=== PATIENT | female | born 1990 | race African-American/Black ===

== ENCOUNTER 2022-09-19 08:34 | Emergency (ER) | payer BC, MEDICAID, SELFPAY ==
[2022-09-19 08:41] VITALS: BP 101/65; PULSE 80; RESP 12; TEMP 36.4; O2SAT 98; BMI 32.1
--- NOTE | 2022-09-19 09:18 | ED.GENADULT ---
HPI - General Adult General Chief complaint: General Medical Stated complaint: CMT flare up Time Seen by Provider: 09/19/22 08:54 Source: patient Mode of arrival: ambulatory Limitations: no limitations History of Present Illness HPI narrative: 32 yo female with hx of CMT dx 6 years ago was being treated at [facility] but just moved to [place] she plans on going to [place] for her care now. She notes she is having diffuse body pain. She normally takes gabapentin daily, antidepressants, anxiolytics. She was just admitted to [facility] and dx with UTI 08/31 started on macrobid which according to up to date is on the list to worsen CMT flair. She completed a weeks course. She could not figure out why she went into another flare up x 2 after she left the hospital. She is here asking for pain medications. MD complaint: CMT pain Onset (ago): week(s) (on and off for the past month) Location: left, right, upper extremity and lower extremity Severity: severe Quality: aching, dull and constant Pain Consistency: constant Relieving factors: none Exacerbating factors: none Associated symptoms: denies other symptoms Treatments prior to arrival: other (prescription medications) Related Data Previous Rx's Medication Instructions Recorded cyclobenzaprine 10 mg tablet 10 mg PO TID PRN muscle spasm #20 09/19/22 tabs morphine 15 mg immediate release 15 mg PO TID PRN pain #10 tabs 09/19/22 tablet Allergies Allergy/AdvReac Type Severity Reaction Status Date / Time Unable to Assess Allergy Verified 09/19/22 09:14 Review of Systems Review of Systems: Constitutional : No Fever, No Chills ENT/Mouth : No Ear Pain, No Hoarseness, No sore throat Eyes: No Eye Pain, No Swelling, No Redness, No Foreign Body Cardiovascular : No Chest Pain, No SOB Respiratory : No Cough, No Dyspnea Gastrointestinal : No Nausea, No Vomiting, No Diarrhea, No abdominal Pain Genitourinary : No Dysuria, No Hematuria Musculoskeletal : positive joint pain, pos Myalgias, No Joint Swelling Skin : No Skin lacerations, No rash Neuro : pos Weakness, No Numbness, No Loss of Consciousness, No Dizziness, No Headache Psych : No Anxiety/Panic, No Depression Heme/Lymph: no easy bruising, no Lymphadenopathy Endocrine : No Polyuria, No Polydipsia All other systems reviewed and are negative [facility] Past Medical History Attestation statement: The following information was validated with the patient. Medical History Anxiety Charcot Leanna Tooth muscular atrophy Depression Social History Social History (Updated 09/19/22 @ 09:30 by Cecilia Murcia DO) Patient Tobacco Use Status: Never used Tobacco Advance Directives: No Advance Directives Information Provided: No Physical Exam ED Vital Signs: Vital Signs - 24 hr 09/19/22 08:41 Temperature 97.6 F Pulse Rate 80 Respiratory Rate 12 Blood Pressure 101/65 Pulse Oximetry 98 Oxygen Delivery Method Room Air BMI result Body Mass Index 32.1 Appearance: Alert. Oriented X3. No acute distress. Eyes: Pupils equal, round and reactive to light. ENT: Pharynx normal. Neck: Normal inspection. Neck supple. CVS: Normal heart rate and rhythm. Pulses normal. Respiratory: No respiratory distress. Breath sounds normal. Abdomen: Soft and non-tender. Skin: Skin warm and dry. Normal skin color. Normal skin turgor. Extremities: No lower extremity edema. Neuro: Oriented X 3. No motor deficit. No sensory deficit. Course Course Course Narrative: will try one dose of IM medications then DC home with oral feels much better stable for DC Medical Decision Making MDM Narrative Medical decision making narrative: 32 yo female with hx of CMT has plans to transfer care from [facility] to [facility] unsure which one - at this time c/o pain exacerbation. She was started on macrobid for UTI which likely triggered a flair. She is moving all extremities. Will obtain labs and UA. I ordered PO pain medications. 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 Lab Data Result diagrams: 09/19/22 09:43 09/19/22 09:43 Labs: Lab Results 09/19/22 09/19/22 09/19/22 Range/Units 09:43 09:43 09:43 WBC 5.5 (4.8-10.8) X10*3/uL RBC 4.10 L (4.20-5.50) X10*6/uL Hgb 12.4 (12.0-16.0) g/dl Hct 37.1 (37.0-47.0) % MCV 90.5 (80.0-98.0) fL MCH 30.2 (27.0-33.0) pg MCHC 33.4 (31.0-35.0) g/dl RDW 12.6 (11.0-16.0) % Plt Count 359 (160-400) X10*3/uL MPV 9.1 L (9.4-12.3) fL Immature Gran % (Auto) 0.2 (0.0-0.4) % Neut % (Auto) 59.6 (45-73) % Lymph % (Auto) 26.8 (20-40) % [place] % (Auto) 9.9 (2-11) % Eos % (Auto) 2.9 (0-4) % Baso % (Auto) 0.6 (0-2) % Lymph # (Auto) 1.5 (1.2-4.9) X10*3/uL [place] # (Auto) 0.5 (0.1-1.2) X10*3/uL Eos # (Auto) 0.2 (0.0-0.4) X10*3/uL Baso # (Auto) 0.0 (0.0-0.2) X10*3/uL Abs Immat Gran (auto) 0.01 (0.00-0.03) X10*3/uL Absolute Neuts (auto) 3.3 (2.0-8.3) x10*3/uL Absolute Nucleated RBC 0.000 (0.0-0.012) X10*3/uL Nucleated RBC % (auto) 0.0 (0.0-0.2) /100WBC Sodium 141 (135-145) mmol/L Potassium 4.2 (3.3-5.1) mmol/L Chloride 107 (96-108) mmol/L Carbon Dioxide 24 (22-29) mmol/L Anion Gap 14 (12-20) BUN 9 (9-16) mg/dL Creatinine 0.67 (0.5-1.4) mg/dL Estim Creat Clear Calc 113.2 Estimated GFR > 60 Random Glucose 109 (60-115) mg/dL Calcium 9.1 (8.4-10.2) mg/dL Magnesium 2.0 (1.6-2.6) mg/dL Total Bilirubin 0.8 (0.0-1.0) mg/dL Direct Bilirubin 0.3 (0.0-0.5) mg/dL AST 15 (5-31) U/L ALT 19 (0-31) U/L Alkaline Phosphatase 68 (39-117) U/L Total Protein 7.2 (6.5-8.0) g/dL Albumin 4.1 (3.5-5.0) g/dL Urine Color Urine Appearance Urine pH (5.0-9.0) Ur Specific [place] (1.005-1.025) Urine Protein (Neg-Trace) mg/dL Urine Glucose (UA) (Negative) mg/dL Urine Ketones (Negative) mg/dL Urine Blood (Negative) Urine Nitrite (Negative) Ur Leukocyte Esterase (Negative) Urine Test (NEGATIVE) COVID-19 ([facility]) Negative (Negative) COVID-19 Clin Com See Note 09/19/22 09/19/22 Range/Units 09:54 09:54 WBC (4.8-10.8) X10*3/uL RBC (4.20-5.50) X10*6/uL Hgb (12.0-16.0) g/dl Hct (37.0-47.0) % MCV (80.0-98.0) fL MCH (27.0-33.0) pg MCHC (31.0-35.0) g/dl RDW (11.0-16.0) % Plt Count (160-400) X10*3/uL MPV (9.4-12.3) fL Immature Gran % (Auto) (0.0-0.4) % Neut % (Auto) (45-73) % Lymph % (Auto) (20-40) % [place] % (Auto) (2-11) % Eos % (Auto) (0-4) % Baso % (Auto) (0-2) % Lymph # (Auto) (1.2-4.9) X10*3/uL [place] # (Auto) (0.1-1.2) X10*3/uL Eos # (Auto) (0.0-0.4) X10*3/uL Baso # (Auto) (0.0-0.2) X10*3/uL Abs Immat Gran (auto) (0.00-0.03) X10*3/uL Absolute Neuts (auto) (2.0-8.3) x10*3/uL Absolute Nucleated RBC (0.0-0.012) X10*3/uL Nucleated RBC % (auto) (0.0-0.2) /100WBC Sodium (135-145) mmol/L Potassium (3.3-5.1) mmol/L Chloride (96-108) mmol/L Carbon Dioxide (22-29) mmol/L Anion Gap (12-20) BUN (9-16) mg/dL Creatinine (0.5-1.4) mg/dL Estim Creat Clear Calc Estimated GFR Random Glucose (60-115) mg/dL Calcium (8.4-10.2) mg/dL Magnesium (1.6-2.6) mg/dL Total Bilirubin (0.0-1.0) mg/dL Direct Bilirubin (0.0-0.5) mg/dL AST (5-31) U/L ALT (0-31) U/L Alkaline Phosphatase (39-117) U/L Total Protein (6.5-8.0) g/dL Albumin (3.5-5.0) g/dL Urine Color Yellow Urine Appearance Clear Urine pH 6.0 (5.0-9.0) Ur Specific [place] 1.025 (1.005-1.025) Urine Protein Negative (Neg-Trace) mg/dL Urine Glucose (UA) Negative (Negative) mg/dL Urine Ketones Negative (Negative) mg/dL Urine Blood Negative (Negative) Urine Nitrite Negative (Negative) Ur Leukocyte Esterase Negative (Negative) Urine Test NEGATIVE (NEGATIVE) COVID-19 ([facility]) (Negative) COVID-19 Clin Com Discharge Plan 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 cyclobenzaprine 10 mg tablet 10 mg PO TID PRN (Reason: muscle spasm) Qty: 20 0RF
[2022-09-19] MEDS: Morphine Sulfate Immed Release 15 MG TABLET PO (09:33)
[2022-09-19] MEDS: diazePAM 2 MG TABLET 5 MG PO (09:34)
[2022-09-19 09:51] LABS: MANUAL DIFF FLAG NO
[2022-09-19 09:53] LABS: Basophils Percent Auto 0.6 % (0-2); Eosinophils Absolute Auto 0.2 X10*3/uL (0.0-0.4); Eosinophils Percent Auto 2.9 % (0-4); Hematocrit 37.1 % (37.0-47.0); Hemoglobin 12.4 g/dl (12.0-16.0); Imm Gran Abs Auto 0.01 X10*3/uL (0.00-0.03); Imm Gran Pct Auto 0.2 % (0.0-0.4); Lymphocytes Absolute Auto 1.5 X10*3/uL (1.2-4.9); Lymphocytes Percent Auto 26.8 % (20-40); Mean Corpuscular HGB Conc 33.4 g/dl (31.0-35.0); Mean Corpuscular Hemoglobin 30.2 pg (27.0-33.0); Mean Corpuscular Volume 90.5 fL (80.0-98.0); Mean Platelet Volume 9.1 fL (9.4-12.3); Monocytes Absolute Auto 0.5 X10*3/uL (0.1-1.2); Monocytes Percent Auto 9.9 % (2-11); Neutrophils Absolute Auto 3.3 x10*3/uL (2.0-8.3); Neutrophils Percent Auto 59.6 % (45-73); Platelet Count 359 X10*3/uL (160-400); Red Cell Distribution Width 12.6 % (11.0-16.0); White Blood Count 5.5 X10*3/uL (4.8-10.8)
[2022-09-19 10:07] LABS: COVID-19 Test Negative (Negative); IDNOW Serial# 9DB6401D
[2022-09-19 10:10] LABS: Alanine Aminotransferase 19 U/L (0-31); Albumin Level 4.1 g/dL (3.5-5.0); Alkaline Phosphatase 68 U/L (39-117); Anion Gap 14 (12-20); Aspartate Amino Transferase 15 U/L (5-31); Bilirubin Direct 0.3 mg/dL (0.0-0.5); Bilirubin Total 0.8 mg/dL (0.0-1.0); Blood Urea Nitrogen 9 mg/dL (9-16); Calcium 9.1 mg/dL (8.4-10.2); Carbon Dioxide 24 mmol/L (22-29); Chloride 107 mmol/L (96-108); Creatinine Clr Calc Pharmacy 113.2; Estimated Glomerular Filt Rate > 60; Glucose Random 109 mg/dL (60-115); Potassium 4.2 mmol/L (3.3-5.1); Sodium 141 mmol/L (135-145); Total Protein 7.2 g/dL (6.5-8.0)
[2022-09-19 10:11] LABS: UPreg QC Valid YES; Urine Pregnancy NEGATIVE (NEGATIVE)
[2022-09-19 10:12] LABS: Appearance Urine Clear; Color Urine Yellow; Glucose Urine UA Negative (Negative); Leukocyte Esterase Urine Negative (Negative); Nitrite Urine Negative (Negative); Specific Gravity - Urine 1.025 (1.005-1.025); Urine Blood Negative (Negative); Urine Ketones Negative (Negative); Urine Protein Negative (Neg-Trace)
[2022-09-19] MEDS: HYDROmorphone HCl 2 MG/ML VIAL IM (11:20)
[2022-09-19 12:06] VITALS: BP 98/60; PULSE 63; RESP 19; TEMP 36.8; O2SAT 97
== END 2022-09-19 12:13 | disposition home or self-care (01) ==
PROVIDERS: Emergency Provider Emergency Medicine
DX: G60.0 Hereditary motor and sensory neuropathy (principal); Z20.822 Contact with and (suspected) exposure to COVID-19
CPT/HCPCS: 80048; 80076; 81003; 81025; 83735; 85025; 87635; 96372; 99284; J1170

== ENCOUNTER 2022-10-13 16:14 | Emergency (ER) | payer BC, MEDICAID, SELFPAY ==
--- NOTE | 2022-10-13 16:18 | ED_ITS ---
HPI - General Adult General Chief complaint: General Medical Stated complaint: flare out Cmt disease Source: patient Related Data Previous Rx's Medication Instructions Recorded cyclobenzaprine 10 mg tablet 10 mg PO TID PRN muscle spasm #20 09/19/22 tabs morphine 15 mg immediate release 15 mg PO TID PRN pain #10 tabs 09/19/22 tablet Allergies Allergy/AdvReac Type Severity Reaction Status Date / Time Unable to Assess Allergy Verified 09/19/22 09:14 [facility] Past Medical History Medical History Anxiety Charcot Leanna Tooth muscular atrophy Depression Social History Social History (Updated 09/19/22 @ 09:30 by Cecilia Murcia DO) Patient Tobacco Use Status: Never used Tobacco Course Course Course Narrative: [facility] triage note: -pt c/o charcot leanna tooth exacerbation for 2 days now, dx 6 years ago -c/o pain everywhere, nauseous, feeling shakiness possible internal anxiety -takes gabapentin 800mg TID, last time she was here, she was rx morphine -PE: lungs clear, HR wnl S1S2, no LE edema -f/u labs Discharge Plan Discharge Prescriptions: No Action morphine 15 mg tablet 15 mg PO TID PRN (Reason: pain) Qty: 10 0RF Rx Instructions: partial fill okay; Partial Fill upon patient request. cyclobenzaprine 10 mg tablet 10 mg PO TID PRN (Reason: muscle spasm) Qty: 20 0RF
[2022-10-13 16:22] VITALS: BP 126/81; PULSE 114; RESP 18; TEMP 36.6; O2SAT 100; BMI 32.1
[2022-10-13 19:42] LABS: MANUAL DIFF FLAG NO
[2022-10-13 19:44] LABS: Appearance Urine Clear; Color Urine Yellow; Glucose Urine UA Negative (Negative); Leukocyte Esterase Urine Trace (Negative); Nitrite Urine Negative (Negative); PH 6.5 (5.0-9.0); UMIC TRIGGER UACC YES; Urine Blood Negative (Negative); Urine Ketones Negative (Negative); Urine Protein Negative (Neg-Trace)
[2022-10-13 19:47] LABS: Basophils Percent Auto 0.4 % (0-2); Eosinophils Absolute Auto 0.1 X10*3/uL (0.0-0.4); Eosinophils Percent Auto 1.5 % (0-4); Hemoglobin 12.4 g/dl (12.0-16.0); Imm Gran Abs Auto 0.03 X10*3/uL (0.00-0.03); Imm Gran Pct Auto 0.3 % (0.0-0.4); Lymphocytes Absolute Auto 2.9 X10*3/uL (1.2-4.9); Lymphocytes Percent Auto 31.3 % (20-40); Mean Corpuscular HGB Conc 33.5 g/dl (31.0-35.0); Mean Corpuscular Hemoglobin 30.2 pg (27.0-33.0); Mean Platelet Volume 9.2 fL (9.4-12.3); Monocytes Absolute Auto 0.8 X10*3/uL (0.1-1.2); Neutrophils Absolute Auto 5.3 x10*3/uL (2.0-8.3); Neutrophils Percent Auto 57.5 % (45-73); Platelet Count 379 X10*3/uL (160-400); Red Blood Count 4.11 X10*6/uL (4.20-5.50); Red Cell Distribution Width 12.4 % (11.0-16.0); White Blood Count 9.3 X10*3/uL (4.8-10.8)
[2022-10-13 19:52] LABS: Bacteria Urine Trace (None Seen); Hyaline Casts Urine 0-2 /LPF (0-2); RBC Urine 0-2 /HPF (0-2); Squamous Epithelial Cell Urine 0-2 /HPF (0-2); WBC Urine 0-5 /HPF (0-5)
[2022-10-13 19:58] LABS: Alanine Aminotransferase 9 U/L (0-31); Albumin Level 3.9 g/dL (3.5-5.0); Alkaline Phosphatase 77 U/L (39-117); Anion Gap 15 (12-20); Aspartate Amino Transferase 13 U/L (5-31); Bilirubin Direct 0.2 mg/dL (0.0-0.5); Bilirubin Total 0.4 mg/dL (0.0-1.0); Blood Urea Nitrogen 11 mg/dL (9-16); Calcium 9.2 mg/dL (8.4-10.2); Carbon Dioxide 24 mmol/L (22-29); Chloride 106 mmol/L (96-108); Creatinine Clr Calc Pharmacy 105.4; Estimated Glomerular Filt Rate > 60; Glucose Random 94 mg/dL (60-115); Potassium 4.2 mmol/L (3.3-5.1); Sodium 141 mmol/L (135-145)
[2022-10-13 20:04] LABS: HCG Quantitative < 2 mIU/mL
[2022-10-13 20:06] LABS: COVID-19 Test Negative (Negative); IDNOW Serial# 55D5AD1C
[2022-10-13 21:50] VITALS: BP 121/84; PULSE 80; RESP 18; TEMP 36.8; O2SAT 100
--- NOTE | 2022-10-13 22:11 | ED.GENADULT ---
HPI - General Adult General Chief complaint: General Medical Stated complaint: flare out Cmt disease Time Seen by Provider: 10/13/22 21:46 Source: patient Mode of arrival: ambulatory Limitations: no limitations History of Present Illness HPI narrative: 32-year-old female with a past medical history of Yitdccz-Jukus-Dtodi disease who presents to the emergency department today complaining of pain. The patient states the pain is located ?everywhere?. Patient states that she believes the exacerbation is secondary to running out of her gabapentin. Began 2-3 days ago, and there have been no exacerbating or relieving factors. She just moved here from [facility], and is not set up primary care or specialty services in this area yet. Onset (ago): day(s) Relieving factors: none Exacerbating factors: none Associated symptoms: denies other symptoms Treatments prior to arrival: none Related Data Previous Rx's Medication Instructions Recorded cyclobenzaprine 10 mg tablet 10 mg PO TID PRN muscle spasm 30 12/15/22 days #30 tabs aripiprazole 10 mg tablet (Abilify) 10 mg PO BEDTIME #30 tabs 01/29/23 bupropion HCl 150 mg 24 hr tablet, 150 mg PO QAM #30 tabs 01/29/23 extended release buspirone 10 mg tablet See Rx Instructions .Route 01/29/23 .COMPLEX #120 tabs gabapentin 800 mg tablet 800 mg PO TID #90 tabs 01/29/23 hydroxyzine HCl 50 mg tablet 50 mg PO QID PRN anxiety/insomnia 01/29/23 #120 tabs prazosin 1 mg capsule 1 mg PO BEDTIME #30 caps 01/29/23 trazodone 50 mg tablet 50 mg PO BEDTIME PRN sleep #30 tabs 01/29/23 sulfacetamide sodium 10 % eye drops 1 drp ophthalmic (eye) Q4H 5 days 03/26/23 #15 mL Allergies Allergy/AdvReac Type Severity Reaction Status Date / Time apple Allergy Throat Verified 01/05/23 11:46 itches Review of Systems Review of Systems: Yes all other systems are reviewed and are negative Constitutional: Constitutional: Denies chills, Denies fever(s) and Denies weakness Eyes: Eyes: Reports no additional eye complaints ENT: Reports system reviewed and no additional complaints, except as documented Cardiovascular: Cardiovascular: Denies chest pain, Denies Epigastric Pain, Denies rapid heart rate and Denies lightheadedness Respiratory: Respiratory: Reports no additional respiratory complaints, Denies cough and Denies wheezing Gastrointestinal: Gastrointestinal: Denies diarrhea and Denies nausea Genitourinary: Genitourinary: Reports no additional female genitourinary complaints, Denies urinary incontinence and Denies urinary urgency Musculoskeletal: Musculoskeletal: Reports myalgias and Reports muscle cramps Neurologic: Reports system reviewed and no additional complaints, except as documented, Denies Abnormal speech present and Denies weakness Allergic/Immunologic: Allergic/Immunologic: Denies wheezing [facility] Past Medical History Attestation statement: The following information was validated with the patient. Medical History Anxiety Charcot Leanna Tooth muscular atrophy Depression PTSD (post-traumatic stress disorder) Social History Social History Household Members: Family and Other Household Members Other:: Pt's son,sister and brother in law Housing: Apartment Patient Tobacco Use Status: Current someday Tobacco user Tobacco use type: Cigarette Second Hand Smoke Exposure: No Substance Use Type: Marijuana service: No Sexual orientation: Straight/Heterosexual Physical Exam ED Vital Signs: Vital Signs - 24 hr 10/13/22 16:22 10/13/22 21:50 10/14/22 00:00 Temperature 97.8 F 98.2 F 98.5 F Pulse Rate 114 H 80 80 Respiratory Rate 18 18 19 Blood Pressure 126/81 121/84 122/75 Pulse Oximetry 100 100 96 Oxygen Delivery Method Room Air Room Air Nasal Cannula Oxygen Flow Rate 2 10/14/22 02:21 Temperature 97.6 F Pulse Rate 73 Respiratory Rate 16 Blood Pressure 114/71 Pulse Oximetry 100 Oxygen Delivery Method Room Air Oxygen Flow Rate BMI result Body Mass Index 32.1 Vital signs noted to be normal Const General: cooperative, healthy appearing and acute distress mild; No combative Nutritional Appearance: average body habitus Orientation/consciousness: patient oriented x3 HENMT Head: Yes normal to inspection, Yes normocephalic and Yes atraumatic Ears: hearing grossly normal bilaterally and external ears normal General nose exam: Normal external nose present Face and sinus: Yes normal facial exam Mouth: Normal oral and palatal mucosa present Eyes Sclerae: sclerae normal Corneas: corneas normal Pupils: Equal, round and reactive pupils present EOM: EOMs intact bilaterally Neck Neck: Yes normal visual inspection and Yes full ROM Chest Chest palpation & inspection: normal inspection of the chest Resp Effort & Inspection: normal respiratory effort, no cough and no stridor Cardio Rate: regular rate Rhythm: regular rhythm GI Inspection: Yes normal to inspection and No distended Back/Spine/Pelvis Cervical Spine: normal cervical lordosis and cervical ROM normal Thoracic/Lumbar Spine: thoracic and lumbar spine normal to inspection Skin General skin exam: no rashes or lesions noted, no erythema and no pallor Neuro General: patient oriented x3 Cranial nerves: Yes CN's II-XII intact bilaterally and Yes Equal, round and reactive pupils present Speech: No Abnormal speech present Motor exam (neuro): 5/5 motor strength present throughout Extrem General: Yes normal to inspection, No cyanosis and No edema Medications Administered Discontinued Medications Generic Name Dose Route Start Last Admin Trade Name Freq PRN Reason Stop Dose Admin Gabapentin 800 mg 10/13/22 22:08 10/13/22 23:36 Gabapentin 300 Mg Capsule PO 10/13/22 22:09 800 mg ONCE ONE Administration Sodium Chloride 1,000 mls @ 999 mls/hr 10/13/22 22:15 10/14/22 03:00 Ns IV 10/13/22 23:15 Infused .Q1H1M PATSY Infusion Morphine Sulfate 4 mg 10/13/22 22:08 10/13/22 23:36 Morphine Sulfate 4 Mg/Ml Cartridge IVPUSH 10/13/22 22:09 4 mg ONCE ONE Administration Protocol Morphine Sulfate 4 mg 10/14/22 01:31 10/14/22 02:07 Morphine Sulfate 4 Mg/Ml Cartridge IVPUSH 10/14/22 01:32 4 mg ONCE ONE Administration Protocol Medical Decision Making [facility] Narrative Medical decision making narrative: 32-year-old female presents emergency [facility] with generalized pain secondary to Charcot Leanna tooth disease. The patient was given 2 doses of morphine as well as p.o. cyclobenzaprine with moderate effect. The patient will be discharged home at this time with prescriptions for pain medication as well as gabapentin, which she ran out of prompting her emergency room visit [facility]. Lab Data Lab results reviewed: Yes I reviewed the patient's lab results. Lab results narrative: Laboratory studies are normal 10/13/22 19:24 10/13/22 19:24 Labs: Lab Results 10/13/22 10/13/22 10/13/22 Range/Units 19:24 19:24 19:24 WBC 9.3 (4.8-10.8) X10*3/uL RBC 4.11 L (4.20-5.50) X10*6/uL Hgb 12.4 (12.0-16.0) g/dl Hct 37.0 (37.0-47.0) % MCV 90.0 (80.0-98.0) fL MCH 30.2 (27.0-33.0) pg MCHC 33.5 (31.0-35.0) g/dl RDW 12.4 (11.0-16.0) % Plt Count 379 (160-400) X10*3/uL MPV 9.2 L (9.4-12.3) fL Immature Gran % (Auto) 0.3 (0.0-0.4) % Neut % (Auto) 57.5 (45-73) % Lymph % (Auto) 31.3 (20-40) % [place] % (Auto) 9.0 (2-11) % Eos % (Auto) 1.5 (0-4) % Baso % (Auto) 0.4 (0-2) % Lymph # (Auto) 2.9 (1.2-4.9) X10*3/uL [place] # (Auto) 0.8 (0.1-1.2) X10*3/uL Eos # (Auto) 0.1 (0.0-0.4) X10*3/uL Baso # (Auto) 0.0 (0.0-0.2) X10*3/uL Abs Immat Gran (auto) 0.03 (0.00-0.03) X10*3/uL Absolute Neuts (auto) 5.3 (2.0-8.3) x10*3/uL Absolute Nucleated RBC 0.000 (0.0-0.012) X10*3/uL Nucleated RBC % (auto) 0.0 (0.0-0.2) /100WBC Sodium 141 (135-145) mmol/L Potassium 4.2 (3.3-5.1) mmol/L Chloride 106 (96-108) mmol/L Carbon Dioxide 24 (22-29) mmol/L Anion Gap 15 (12-20) BUN 11 (9-16) mg/dL Creatinine 0.72 (0.5-1.4) mg/dL Estim Creat Clear Calc 105.4 Estimated GFR > 60 Random Glucose 94 (60-115) mg/dL Calcium 9.2 (8.4-10.2) mg/dL Total Bilirubin 0.4 (0.0-1.0) mg/dL Direct Bilirubin 0.2 (0.0-0.5) mg/dL AST 13 (5-31) U/L ALT 9 (0-31) U/L Alkaline Phosphatase 77 (39-117) U/L Total Protein 7.0 (6.5-8.0) g/dL Albumin 3.9 (3.5-5.0) g/dL Beta HCG, Quant < 2 mIU/mL Urine Color Urine Appearance Urine pH (5.0-9.0) Ur Specific [place] (1.005-1.025) Urine Protein (Neg-Trace) mg/dL Urine Glucose (UA) (Negative) mg/dL Urine Ketones (Negative) mg/dL Urine Blood (Negative) Urine Nitrite (Negative) Ur Leukocyte Esterase (Negative) Urine RBC (0-2) /HPF Urine WBC (0-5) /HPF Ur Squamous Epith Cells (0-2) /HPF Urine Bacteria (None Seen) Hyaline Casts (0-2) /LPF COVID-19 ([facility]) Negative (Negative) COVID-19 Clin Com See Note 10/13/22 Range/Units 19:34 WBC (4.8-10.8) X10*3/uL RBC (4.20-5.50) X10*6/uL Hgb (12.0-16.0) g/dl Hct (37.0-47.0) % MCV (80.0-98.0) fL MCH (27.0-33.0) pg MCHC (31.0-35.0) g/dl RDW (11.0-16.0) % Plt Count (160-400) X10*3/uL MPV (9.4-12.3) fL Immature Gran % (Auto) (0.0-0.4) % Neut % (Auto) (45-73) % Lymph % (Auto) (20-40) % [place] % (Auto) (2-11) % Eos % (Auto) (0-4) % Baso % (Auto) (0-2) % Lymph # (Auto) (1.2-4.9) X10*3/uL [place] # (Auto) (0.1-1.2) X10*3/uL Eos # (Auto) (0.0-0.4) X10*3/uL Baso # (Auto) (0.0-0.2) X10*3/uL Abs Immat Gran (auto) (0.00-0.03) X10*3/uL Absolute Neuts (auto) (2.0-8.3) x10*3/uL Absolute Nucleated RBC (0.0-0.012) X10*3/uL Nucleated RBC % (auto) (0.0-0.2) /100WBC Sodium (135-145) mmol/L Potassium (3.3-5.1) mmol/L Chloride (96-108) mmol/L Carbon Dioxide (22-29) mmol/L Anion Gap (12-20) BUN (9-16) mg/dL Creatinine (0.5-1.4) mg/dL Estim Creat Clear Calc Estimated GFR Random Glucose (60-115) mg/dL Calcium (8.4-10.2) mg/dL Total Bilirubin (0.0-1.0) mg/dL Direct Bilirubin (0.0-0.5) mg/dL AST (5-31) U/L ALT (0-31) U/L Alkaline Phosphatase (39-117) U/L Total Protein (6.5-8.0) g/dL Albumin (3.5-5.0) g/dL Beta HCG, Quant mIU/mL Urine Color Yellow Urine Appearance Clear Urine pH 6.5 (5.0-9.0) Ur Specific [place] 1.010 (1.005-1.025) Urine Protein Negative (Neg-Trace) mg/dL Urine Glucose (UA) Negative (Negative) mg/dL Urine Ketones Negative (Negative) mg/dL Urine Blood Negative (Negative) Urine Nitrite Negative (Negative) Ur Leukocyte Esterase Trace H (Negative) Urine RBC 0-2 (0-2) /HPF Urine WBC 0-5 (0-5) /HPF Ur Squamous Epith Cells 0-2 (0-2) /HPF Urine Bacteria Trace (None Seen) Hyaline Casts 0-2 (0-2) /LPF COVID-19 ([facility]) (Negative) COVID-19 Clin Com Discharge Plan Discharge Clinical Impression: Xziqbbo-Ehstn-Mnffj syndrome Patient Disposition: Home, Self-Care Instructions: Pain Management (ED) Additional Instructions: Call the [facility], for an appointment and follow-up Prescriptions: No Action cyclobenzaprine 10 mg tablet 10 mg PO TID PRN (Reason: muscle spasm) 30 Days Qty: 30 1RF prazosin 1 mg capsule 1 mg PO BEDTIME Qty: 30 0RF Rx Instructions: hold for systolic bp <90 aripiprazole [Abilify] 10 mg tablet 10 mg PO BEDTIME Qty: 30 0RF bupropion HCl 150 mg tablet extended release 24 hr 150 mg PO QAM Qty: 30 0RF buspirone 10 mg tablet See Rx Instructions .ROUTE .COMPLEX Qty: 120 0RF Rx Instructions: 10 mg orally TID, and take 1 extra dose as needed for breakthrough anxiety gabapentin 800 mg tablet 800 mg PO TID Qty: 90 0RF hydroxyzine HCl 50 mg tablet 50 mg PO QID PRN (Reason: anxiety/insomnia) Qty: 120 0RF trazodone 50 mg tablet 50 mg PO BEDTIME PRN (Reason: sleep) Qty: 30 0RF sulfacetamide sodium 10 % drops 1 drp ophthalmic (eye) Q4H 5 Days Qty: 15 0RF Stand Alone Forms: Work/School Release Interventions: ED Discharge Assessment Last Done: 10/14/22 04:59 Discharge Date/Time: 10/14/22 05:07
[2022-10-13] MEDS: Morphine Sulfate 4 MG/ML CARTRIDGE IVPUSH (23:36)
[2022-10-13] MEDS: 0.9 % Sodium Chloride 1,000 ML 999 ML IV (23:36)
[2022-10-13] MEDS: Gabapentin 300 MG CAPSULE 800 MG PO (23:36)
[2022-10-14] VITALS: BP 122/75; PULSE 80; RESP 19; TEMP 36.9; O2SAT 96
[2022-10-14] MEDS: Morphine Sulfate 4 MG/ML CARTRIDGE IVPUSH (02:07)
--- NOTE | 2022-10-14 02:16 | PC.NURSE ---
Pt. resting in bed. Reports high amounts of pain 10 widespread over her body with emphasis on her face/jaw, and feet. Pt. given morphine with some effect...down to 8/10, but then ramps back up again. Currently at a 10/10. Medicated with morphine per JAN. Pt. asking about a muscle relaxe as she states that has helped in the past and that she did speak with the MD about it. MD aware of her request.
[2022-10-14 02:21] VITALS: BP 114/71; PULSE 73; RESP 16; TEMP 36.4; O2SAT 100
--- NOTE | 2022-10-14 03:30 | PC.NURSE ---
Patient ambulatory to BR, gait steady. Patient states she is still in pain and meds are not working. MD aware. NO new orders at this time
[2022-10-14 04:49] VITALS: BP 118/63; PULSE 74; RESP 18; TEMP 36.4; O2SAT 100
== END 2022-10-14 05:07 | disposition home or self-care (01) ==
PROVIDERS: Emergency Medicine; Emergency Provider Emergency Medicine
DX: G60.0 Hereditary motor and sensory neuropathy (principal); M79.10 Myalgia, unspecified site; R52 Pain, unspecified; R25.2 Cramp and spasm; F41.9 Anxiety disorder, unspecified; F32.A Depression, unspecified; Z20.822 Contact with and (suspected) exposure to COVID-19; Z79.899 Other long term (current) drug therapy; F17.210 Nicotine dependence, cigarettes, uncomplicated; F12.90 Cannabis use, unspecified, uncomplicated
CPT/HCPCS: 80048; 80076; 81001; 84702; 85025; 87635; 96361; 96374; 96376; 99284; J2270

== ENCOUNTER 2022-11-13 05:37 | Emergency (ER) | payer SELFPAY ==
[2022-11-13 05:46] VITALS: BP 145/92; PULSE 132; RESP 28; TEMP 36.8; O2SAT 100; BMI 33.2
[2022-11-13 06:08] VITALS: BP 133/86; PULSE 107; RESP 16; TEMP 36.9; O2SAT 98
--- NOTE | 2022-11-13 06:14 | PC.NURSE ---
Pt aox4. Tearful at the bedside. Reports body pain throughout, 09/08. Hx of CMT disease. Reports being new to the area and having a pcp appt 11/26/22 to establish care. Pt reports lower extremity weakness. +CMS. Bilateral pedal pulses present. Pt awaiting provider evaluation and aware of plan of care.
[2022-11-13 06:57] LABS: Basophils Percent Auto 0.5 % (0-2); Eosinophils Absolute Auto 0.2 X10*3/uL (0.0-0.4); Hematocrit 35.4 % (37.0-47.0); Hemoglobin 12.2 g/dl (12.0-16.0); Imm Gran Abs Auto 0.02 X10*3/uL (0.00-0.03); Imm Gran Pct Auto 0.2 % (0.0-0.4); Lymphocytes Absolute Auto 1.2 X10*3/uL (1.2-4.9); Lymphocytes Percent Auto 13.7 % (20-40); MANUAL DIFF FLAG NO; Mean Corpuscular HGB Conc 34.5 g/dl (31.0-35.0); Mean Corpuscular Hemoglobin 30.2 pg (27.0-33.0); Mean Corpuscular Volume 87.6 fL (80.0-98.0); Monocytes Absolute Auto 1.1 X10*3/uL (0.1-1.2); Monocytes Percent Auto 12.7 % (2-11); Neutrophils Absolute Auto 6.2 x10*3/uL (2.0-8.3); Neutrophils Percent Auto 70.9 % (45-73); Platelet Count 315 X10*3/uL (160-400); Red Blood Count 4.04 X10*6/uL (4.20-5.50); Red Cell Distribution Width 12.1 % (11.0-16.0); White Blood Count 8.7 X10*3/uL (4.8-10.8)
[2022-11-13 07:09] VITALS: BP 116/66; PULSE 92; RESP 16; TEMP 37; O2SAT 99
[2022-11-13 07:10] LABS: Alanine Aminotransferase 10 U/L (0-31); Albumin Level 3.6 g/dL (3.5-5.0); Alkaline Phosphatase 74 U/L (39-117); Anion Gap 11 (12-20); Aspartate Amino Transferase 12 U/L (5-31); Bilirubin Total 1.3 mg/dL (0.0-1.0); Blood Urea Nitrogen 7 mg/dL (9-16); C Reactive Protein 0.99 mg/dL (< or = 0.50); Calcium 8.8 mg/dL (8.4-10.2); Carbon Dioxide 26 mmol/L (22-29); Chloride 105 mmol/L (96-108); Creatinine Clr Calc Pharmacy 115.3; Estimated Glomerular Filt Rate > 60; Glucose Random 104 mg/dL (60-115); Potassium 3.9 mmol/L (3.3-5.1); Sodium 138 mmol/L (135-145); Total Protein 6.6 g/dL (6.5-8.0)
--- NOTE | 2022-11-13 07:16 | ED_ITS ---
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 She presents again with complaints of her disease process that she describes as starting with flutterng in my heart and stomach and then progresses to dysphagia and significant discomfort and pain from her waist down that involves knees and also weakness . She is unsure if there is any association with her menstrual period. She currently takes Gabapentin which has been prescribed by her physician in [facility]. Currently menstruating. Related Data Previous Rx's Medication Instructions Recorded cyclobenzaprine 10 mg tablet 10 mg PO TID PRN muscle spasm #20 09/19/22 tabs morphine 15 mg immediate release 15 mg PO TID PRN pain #10 tabs 09/19/22 tablet gabapentin 800 mg tablet 800 mg PO TID #90 tabs 10/14/22 oxycodone-acetaminophen 5 mg-325 1 tab PO Q4H PRN pain (scale score 10/14/22 mg tablet (Percocet) 7-10) #10 tabs ketorolac 10 mg tablet 10 mg PO Q6H PRN pain 5 days #20 11/13/22 tabs Allergies Allergy/AdvReac Type Severity Reaction Status Date / Time No Known Allergies Allergy Verified 11/13/22 05:49 Review of Systems Review of Systems: Pertinent positives and negatives as stated in HPI 10 point review of systems is otherwise negative. [facility] Past Medical History Source: nursing notes reviewed Medical History Anxiety Charcot Leanna Tooth muscular atrophy Depression Social History Social History Patient Tobacco Use Status: Never used Tobacco Smoked in Last 30 Days: No Use of substances other than those prescribed or required for medical reasons: No Substance Use Type: Marijuana Advance Directives: No Advance Directives Information Provided: No Patient : No Physical Exam ED Vital Signs: Vital Signs - 24 hr 11/13/22 05:46 11/13/22 06:08 11/13/22 07:09 Temperature 98.3 F 98.5 F 98.6 F Pulse Rate 132 H 107 H 92 Respiratory Rate 28 H 16 16 Blood Pressure 145/92 H 133/86 116/66 Pulse Oximetry 100 98 99 Oxygen Delivery Method Room Air Room Air Room Air 11/13/22 09:49 Temperature 98.7 F Pulse Rate 82 Respiratory Rate 14 Blood Pressure 97/55 L Pulse Oximetry 96 Oxygen Delivery Method Room Air BMI result Body Mass Index 33.2 VITAL SIGNS: Reviewed. GENERAL: Well developed, well nourished, in no acute distress. HEAD: Normocephalic/atraumatic EYES: PERRLA, EOMI EARS: Ext canals without abnormality OROPHARYNX: no oral lesions noted, posterior pharynx clear NECK: Supple, no adenopathy LUNGS: Normal breath sounds. No adventitious sounds or accessory muscle use. SpO2<100> CARDIOVASCULAR: Regular rate and rhythm without noted murmurs ABDOMEN: Soft, non-tender, non-distended with bowel sounds. MUSCULOSKELETAL: +tenderness and bilateral knees/ankles without associated erythema or induration, deformities, or effusions noted on gross inspection. EXTREMITIES: No cyanosis, clubbing or edema. SKIN: Inspection of the skin reveals no rashes NEUROLOGIC: Alert and oriented x 4. Strength and sensation to light touch were grossly intact x 4, DTRs absent. Course Course Course Narrative: 32-year-old female with history and clinical presentation in consistent with CMT and this was discussed with the patient at bedside as well as stating that she may have an overlying condition that is contributing to her symptoms. In addition, I instructed her to obtain all medical records from [place] to include genetic testing that will better assist her outpatient providers in the future. I think that patient may have an overlying inflammatory process on going and whether or not this is viral/autoimmune to include rheumatologic it is unclear. Will obtain basic labs with inflammatory markers to include RA, viral testing. - Labs, Viral testing, UA/Upreg - Neurology consult, Neurology referral - Pain medication 09: Dr. Beckwith recommends a follow-up with therapist/behavioral resources as patient does have underlying psychiatric conditions that she will also need to have managed since she has moved here to the area. In addition, he recommends carbamazepine 100 mg b.i.d.. Also, he points to the fact that her feet in DTRs are very consistent with significant chronicity of the CMT. He feels there may be other etiologies for patient's presentation of symptoms. All results discussed with the patient at bedside to include initiation of the medication carbamazepine, she has been provided with referrals and has a follow- up primary care provider appointment. Reevaluation(s) Reevaluation #1: I discussed this case with Dr. Beckwith of Neurology more as an attempt to get the patient evaluated with a definitive plan more than that this situation was an emergency. Dr. Beckwith has confirmed that he will combined see the patient. Time: 07:45 Reevaluation #2: Dr Beckwith seeing patient at bedside. Time: 08:55 Medications Administered Discontinued Medications Generic Name Dose Route Start Last Admin Trade Name Freq PRN Reason Stop Dose Admin Acetaminophen 975 mg 11/13/22 08:30 11/13/22 09:07 Acetaminophen 325 Mg Tablet PO 11/13/22 08:31 975 mg ONCE ONE Administration Ketorolac Tromethamine 15 mg 11/13/22 08:30 11/13/22 09:07 Ketorolac Tromethamine 15 Mg/Ml Vial IM 11/13/22 08:31 15 mg ONCE ONE Administration Medical Decision Making Lab Data Result Diagrams: 11/13/22 06:49 11/13/22 06:49 Labs: Lab Results 11/13/22 11/13/22 11/13/22 Range/Units 06:49 06:49 06:49 WBC 8.7 (4.8-10.8) X10*3/uL RBC 4.04 L (4.20-5.50) X10*6/uL Hgb 12.2 (12.0-16.0) g/dl Hct 35.4 L (37.0-47.0) % MCV 87.6 (80.0-98.0) fL MCH 30.2 (27.0-33.0) pg MCHC 34.5 (31.0-35.0) g/dl RDW 12.1 (11.0-16.0) % Plt Count 315 (160-400) X10*3/uL MPV 9.0 L (9.4-12.3) fL Immature Gran % (Auto) 0.2 (0.0-0.4) % Neut % (Auto) 70.9 (45-73) % Lymph % (Auto) 13.7 L (20-40) % [place] % (Auto) 12.7 H (2-11) % Eos % (Auto) 2.0 (0-4) % Baso % (Auto) 0.5 (0-2) % Lymph # (Auto) 1.2 (1.2-4.9) X10*3/uL [place] # (Auto) 1.1 (0.1-1.2) X10*3/uL Eos # (Auto) 0.2 (0.0-0.4) X10*3/uL Baso # (Auto) 0.0 (0.0-0.2) X10*3/uL Abs Immat Gran (auto) 0.02 (0.00-0.03) X10*3/uL Absolute Neuts (auto) 6.2 (2.0-8.3) x10*3/uL Absolute Nucleated RBC 0.000 (0.0-0.012) X10*3/uL Nucleated RBC % (auto) 0.0 (0.0-0.2) /100WBC ESR 26 H (0-20) MM/HR Sodium 138 (135-145) mmol/L Potassium 3.9 (3.3-5.1) mmol/L Chloride 105 (96-108) mmol/L Carbon Dioxide 26 (22-29) mmol/L Anion Gap 11 L (12-20) BUN 7 L (9-16) mg/dL Creatinine 0.67 (0.5-1.4) mg/dL Estim Creat Clear Calc 115.3 Estimated GFR > 60 Random Glucose 104 (60-115) mg/dL Calcium 8.8 (8.4-10.2) mg/dL Total Bilirubin 1.3 H (0.0-1.0) mg/dL AST 12 (5-31) U/L ALT 10 (0-31) U/L Alkaline Phosphatase 74 (39-117) U/L C-Reactive Protein 0.99 H (< or = 0.50) mg/dL Total Protein 6.6 (6.5-8.0) g/dL Albumin 3.6 (3.5-5.0) g/dL Urine Color Urine Appearance Urine pH (5.0-9.0) Ur Specific [place] (1.005-1.025) Urine Protein (Neg-Trace) mg/dL Urine Glucose (UA) (Negative) mg/dL Urine Ketones (Negative) mg/dL Urine Blood (Negative) Urine Nitrite (Negative) Ur Leukocyte Esterase (Negative) Urine RBC (0-2) /HPF Urine WBC (0-5) /HPF Ur Squamous Epith Cells (0-2) /HPF Urine Bacteria (None Seen) Hyaline Casts (0-2) /LPF Urine Opiates Screen (Not Detect) Urine Fentanyl Screen (Not Detect) Ur Barbiturates Screen (Not Detect) Ur Phencyclidine Scrn (Not Detect) Ur Amphetamines Screen (Not Detect) U Benzodiazepines Scrn (Not Detect) Urine Cocaine Screen (Not Detect) U Marijuana (THC) Screen (Not Detect) Rheumatoid Factor < 13.0 (<15.0) IU/mL Influenza Type A (PCR) (Negative) Influenza Type B (PCR) (Negative) RSV RNA Qual (PCR) (Negative) SARS-CoV-2 RNA (RT-PCR) (Negative) 11/13/22 11/13/22 11/13/22 Range/Units 07:56 08:05 08:05 WBC (4.8-10.8) X10*3/uL RBC (4.20-5.50) X10*6/uL Hgb (12.0-16.0) g/dl Hct (37.0-47.0) % MCV (80.0-98.0) fL MCH (27.0-33.0) pg MCHC (31.0-35.0) g/dl RDW (11.0-16.0) % Plt Count (160-400) X10*3/uL MPV (9.4-12.3) fL Immature Gran % (Auto) (0.0-0.4) % Neut % (Auto) (45-73) % Lymph % (Auto) (20-40) % [place] % (Auto) (2-11) % Eos % (Auto) (0-4) % Baso % (Auto) (0-2) % Lymph # (Auto) (1.2-4.9) X10*3/uL [place] # (Auto) (0.1-1.2) X10*3/uL Eos # (Auto) (0.0-0.4) X10*3/uL Baso # (Auto) (0.0-0.2) X10*3/uL Abs Immat Gran (auto) (0.00-0.03) X10*3/uL Absolute Neuts (auto) (2.0-8.3) x10*3/uL Absolute Nucleated RBC (0.0-0.012) X10*3/uL Nucleated RBC % (auto) (0.0-0.2) /100WBC ESR (0-20) MM/HR Sodium (135-145) mmol/L Potassium (3.3-5.1) mmol/L Chloride (96-108) mmol/L Carbon Dioxide (22-29) mmol/L Anion Gap (12-20) BUN (9-16) mg/dL Creatinine (0.5-1.4) mg/dL Estim Creat Clear Calc Estimated GFR Random Glucose (60-115) mg/dL Calcium (8.4-10.2) mg/dL Total Bilirubin (0.0-1.0) mg/dL AST (5-31) U/L ALT (0-31) U/L Alkaline Phosphatase (39-117) U/L C-Reactive Protein (< or = 0.50) mg/dL Total Protein (6.5-8.0) g/dL Albumin (3.5-5.0) g/dL Urine Color Yellow Urine Appearance Clear Urine pH 7.5 (5.0-9.0) Ur Specific [place] 1.015 (1.005-1.025) Urine Protein Negative (Neg-Trace) mg/dL Urine Glucose (UA) Negative (Negative) mg/dL Urine Ketones Negative (Negative) mg/dL Urine Blood Negative (Negative) Urine Nitrite Negative (Negative) Ur Leukocyte Esterase Small (1+) H (Negative) Urine RBC 0-2 (0-2) /HPF Urine WBC 0-5 (0-5) /HPF Ur Squamous Epith Cells 6-10 (0-2) /HPF Urine Bacteria Trace (None Seen) Hyaline Casts 0-2 (0-2) /LPF Urine Opiates Screen Not Detected (Not Detect) Urine Fentanyl Screen Not Detected (Not Detect) Ur Barbiturates Screen Not Detected (Not Detect) Ur Phencyclidine Scrn Not Detected (Not Detect) Ur Amphetamines Screen Not Detected (Not Detect) U Benzodiazepines Scrn Not Detected (Not Detect) Urine Cocaine Screen Not Detected (Not Detect) U Marijuana (THC) Screen POSITIVE H (Not Detect) Rheumatoid Factor (<15.0) IU/mL Influenza Type A (PCR) NEGATIVE (Negative) Influenza Type B (PCR) NEGATIVE (Negative) RSV RNA Qual (PCR) NEGATIVE (Negative) SARS-CoV-2 RNA (RT-PCR) NEGATIVE (Negative) Discharge Plan Discharge Clinical Impression: Whole body pain, Ezxsepr-Xzktw-Etyva disease Patient Disposition: Home, Self-Care Instructions: Pain Management (ED) Additional Instructions: 1. Please keep the appointment with your primary care provider as scheduled. 2. As per the Neurology consult you have been started on carbamazepine 100 mg, b.i.d.. You may take this medication with your gabapentin. 3. You have a referral to see Rheumatology as well, you will also be provided with a list of therapists and counselors in the area for further management of your underlying psychiatric conditions so that your medications will not lapse in that area either. 4. Please do not hesitate to return to the emergency room for any acute worsening of your symptoms. Prescriptions: New ketorolac 10 mg tablet 10 mg PO Q6H PRN (Reason: pain) 5 Days Qty: 20 0RF Rx Instructions: 1. Patient received Toradol in the emergency room. No Action oxycodone-acetaminophen [Percocet] 5-325 mg tablet 1 tab PO Q4H PRN (Reason: pain (scale score 7-10)) Qty: 10 0RF Rx Instructions: Partial Fill upon patient request. gabapentin 800 mg tablet 800 mg PO TID Qty: 90 0RF morphine 15 mg tablet 15 mg PO TID PRN (Reason: pain) Qty: 10 0RF Rx Instructions: partial fill okay; Partial Fill upon patient request. cyclobenzaprine 10 mg tablet 10 mg PO TID PRN (Reason: muscle spasm) Qty: 20 0RF Referrals: Siobhan Beckwith MD [Physician] - (32F with CMT, she will get records from [place], is on Gabapentin currently, has PCP appt 11/26) Martin Srivastava MD [Physician] - (32F(new to the area) with charcot leanna tooth on Gabapentin but recurrent visits with polyarthralgia and dysphagia symptoms, inflammatory markers were sent as well as RA. Pt has consult to Neurology and an appt with PCP 11/26.) Stand Alone Forms: Work/School Release
[2022-11-13 07:40] LABS: Erythrocyte Sedimentation Rate 26 MM/HR (0-20)
[2022-11-13 08:00] LABS: Rheumatoid Factor < 13.0 IU/mL (<15.0)
[2022-11-13 08:17] LABS: Appearance Urine Clear; Color Urine Yellow; Glucose Urine UA Negative (Negative); Leukocyte Esterase Urine Small (1+) (Negative); Nitrite Urine Negative (Negative); PH 7.5 (5.0-9.0); Specific Gravity - Urine 1.015 (1.005-1.025); UMIC TRIGGER UACC YES; Urine Blood Negative (Negative); Urine Ketones Negative (Negative); Urine Protein Negative (Neg-Trace)
[2022-11-13 08:31] LABS: Bacteria Urine Trace (None Seen); Hyaline Casts Urine 0-2 /LPF (0-2); RBC Urine 0-2 /HPF (0-2); UACC Culture Trigger YES; WBC Urine 0-5 /HPF (0-5)
[2022-11-13 08:34] LABS: Amphetamine Screen Urine Not Detected (Not Detect); Barbiturates, Urine Not Detected (Not Detect); Benzodiazepines Screen Urine Not Detected (Not Detect); Cannabinoid Screen Urine POSITIVE (Not Detect); Cocaine Screen Urine Not Detected (Not Detect); Fentanyl, urine Not Detected (Not Detect); Opiate Screen Urine Not Detected (Not Detect); Phencyclidine Screen Urine Not Detected (Not Detect)
[2022-11-13 08:48] LABS: Influenza A PCR NEGATIVE (Negative); Influenza B PCR NEGATIVE (Negative); Resp Syncy Virus RNA Qual PCR NEGATIVE (Negative); SARS COV2 PCR INHOUSE NEGATIVE (Negative)
[2022-11-13] MEDS: Acetaminophen 325 MG TABLET 975 MG PO (09:07)
[2022-11-13] MEDS: Ketorolac Tromethamine 15 MG/ML VIAL IM (09:07)
[2022-11-13 09:49] VITALS: BP 97/55; PULSE 82; RESP 14; TEMP 37.1; O2SAT 96
--- NOTE | 2022-11-13 10:13 | PM.NEUROCN ---
History of Present Illness Data of Consult Service Date: 11/13/22 Primary Care Provider: Unknown Physician HPI Reason for consult: Whole body pain 32 years old woman I was asked to see in emergency room as she has presented multiple times with same complaints. She provided her own history stating that she suffered from anxiety depression and borderline personality disorder for number of years and has been taking Wellbutrin and Abilify. She said that mentally she was stable. She also has been diagnosed with Jfvlmvv-Nysdc-Ywdua disease in [place]. She has been taking gabapentin for pain control and stated that mostly her pain was controlled with this medicine but sometime she had exacerbation. She has moved to this area couple of months ago. 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 She was here with complaints of pain. When I asked her where her pain was? She stated that it was everywhere including her face and head and eyes. She was tearful and crying when I saw her. He was also feeling somewhat cold. Review of Systems Review of Systems: No obvious cold or flu-like illness recently. [facility] Past Medical History Medical History Anxiety Charcot Leanna Tooth muscular atrophy Depression Social History Social History Patient Tobacco Use Status: Never used Tobacco Smoked in Last 30 Days: No Use of substances other than those prescribed or required for medical reasons: No Substance Use Type: Marijuana Advance Directives: No Advance Directives Information Provided: No Patient : No Meds Allergies Allergy/AdvReac Type Severity Reaction Status Date / Time No Known Allergies Allergy Verified 11/13/22 05:49 Physical Exam Vital Signs: Vital Signs: Last Vital Signs Temp 98.7 F 11/13/22 09:49 Pulse 82 11/13/22 09:49 Resp 14 11/13/22 09:49 BP 97/55 L 11/13/22 09:49 Pulse Ox 96 11/13/22 09:49 O2 Del Method 11/13/22 09:49 BMI result Body Mass Index 33.2 Neuro: Other: Alert and awake with normal spontaneity of speech fluency comprehension and depressed affect. Face was symmetrical. Visual pratt are full. Pupils were equal and reactive to light. Deep tendon reflexes are absent with flexor plantars. High arches in flexion deformity of toes was noted. Speech was normal. Results Labs CBC & Chem 7: 11/13/22 06:49 11/13/22 06:49 Labs: Short CBC 11/13/22 Range/Units 06:49 WBC 8.7 (4.8-10.8) X10*3/uL Hgb 12.2 (12.0-16.0) g/dl Hct 35.4 L (37.0-47.0) % Plt Count 315 (160-400) X10*3/uL BMP 11/13/22 06:49 Sodium 138 Potassium 3.9 Chloride 105 Carbon Dioxide 26 BUN 7 L Creatinine 0.67 Calcium 8.8 Liver Function 11/13/22 Range/Units 06:49 Total Bilirubin 1.3 H (0.0-1.0) mg/dL AST 12 (5-31) U/L ALT 10 (0-31) U/L Alkaline Phosphatase 74 (39-117) U/L Albumin 3.6 (3.5-5.0) g/dL Urine 11/13/22 Range/Units 08:05 Urine Color Yellow Urine Appearance Clear Urine pH 7.5 (5.0-9.0) Ur Specific [place] 1.015 (1.005-1.025) Urine Protein Negative (Neg-Trace) mg/dL Urine Glucose (UA) Negative (Negative) mg/dL Assessment and Plan (1) Whole body pain: Status: Acute 32 years old woman with underlying diagnoses of anxiety/depression/borderline personality disorder and Snbaqpr-Ddalg-Bqajc disease. She was in emergency room with complaints of pain all over her body. She said that until recent days her pain was controlled with gabapentin. Her examination revealed depressed affect and signs of chronic peripheral neuropathy with high arches. Clinical features were suggestive of depression and Vpksljz-Idouf-Gxmew disease. As far as Abjgxpx-Eupqp-Wopdl disease and pain is concerned, most patients do not have neuropathic pain. Pain in Togwnfy-Slkvp-Fxuzs disease can happen to muscles and tendons because of the weakness and deformities associated with it. There has been some description in literature of neuropathic pain and Zcslmpf-Kylww-Xiloa disease but this is not a clear-cut subject. In any case, pain all over the body including her face and head would be difficult to explain based upon this diagnosis. This type of pain syndrome included differential diagnoses of many conditions including collagen vascular disease, cold or flu-like illness, any underlying infection such as UTI, fibromyalgia syndrome, and psychosomatic illness. My recommendation is to make sure she does not have UTI and manage it accordingly. As far as pain control is concerned, I would not recommend habit-forming medicines. She was advised to Fetch her medical records from [place] because of the complex nature of her neuropsychiatric history and to avoid expensive an extensive workup. This would also help us understand her pain management issues. For now I would add carbamazepine 100 mg twice a day, which is more effective for neuropathic pain and might also work as mood stabilizer. She should see a local psychiatrist so that she as proper avenues for counseling, therapy, and psychopharmacology. Physical and occupational therapy contacts through her primary care physician can also help. She already has an appointment to see a primary care physician in this area that she should try to avail. Time Spent With Patient Time: Total time managing care of this patient today ____ minutes. Procedures Date of Service Date of Service: 11/13/22
[2022-11-16 15:13] LABS: Anti Nuclear Antibody Screen NEGATIVE (NEGATIVE)
== END 2022-11-13 10:51 | disposition home or self-care (01) ==
PROVIDERS: Emergency Provider Student in an Organized Health Care Education/Training Program
DX: M79.10 Myalgia, unspecified site (principal); G60.0 Hereditary motor and sensory neuropathy; Z20.822 Contact with and (suspected) exposure to COVID-19; Z79.899 Other long term (current) drug therapy
CPT/HCPCS: 0241U; 36415; 80053; 80307; 81001; 85025; 85652; 86038; 86039; 86140; 86431; 87086; 96372; 99284; J1885

== ENCOUNTER 2022-12-01 13:45 | Inpatient (IN) | payer MEDICAID, OTHER, SELFPAY ==
[2022-12-01 14:27] LABS: UPreg QC Valid YES
[2022-12-01 14:28] LABS: Urine Pregnancy NEGATIVE (NEGATIVE)
[2022-12-01 14:36] LABS: Amphetamine Screen Urine Not Detected (Not Detect); Barbiturates, Urine Not Detected (Not Detect); Benzodiazepines Screen Urine Not Detected (Not Detect); Cannabinoid Screen Urine POSITIVE (Not Detect); Cocaine Screen Urine Not Detected (Not Detect); Fentanyl, urine Not Detected (Not Detect); Opiate Screen Urine Not Detected (Not Detect); Phencyclidine Screen Urine Not Detected (Not Detect)
[2022-12-01 14:40] LABS: COVID-19 Test Negative (Negative); IDNOW Serial# 9DB6401D
[2022-12-01 14:44] VITALS: BP 120/70; BP 129/81; PULSE 78; PULSE 81; RESP 18; TEMP 36.6; O2SAT 98; O2SAT 99; BMI 30.9
--- NOTE | 2022-12-01 15:42 | ED.PSYCH ---
HPI - Psych General Chief Complaint: Psychiatric Symptoms Stated Complaint: [id number] Time Seen by Provider: 12/01/22 14:00 Source: patient Mode of arrival: EMS Limitations: no limitations History of Present Illness HPI Narrative: Patient is a 32-year-old female who presents to the emergency department on a Section 12. She was evaluated by [facility] in the community and made inpatient bed search. Patient has reportedly moved here recently from [place], she reports increased stressors recently she is single and 2 children. she self presented to the [facility] in office with reports of suicidal ideations. at the time of my examination she does not endorse a specific plan S. She states she has not been taking her medications for approximately 1 month which includes gabapentin, Abilify, and Wellbutrin. Denies any recreational drug or alcohol usage. Sporadic THC usage. Related Data Previous Rx's Medication Instructions Recorded cyclobenzaprine 10 mg tablet 10 mg PO TID PRN muscle spasm #20 09/19/22 tabs morphine 15 mg immediate release 15 mg PO TID PRN pain #10 tabs 09/19/22 tablet gabapentin 800 mg tablet 800 mg PO TID #90 tabs 10/14/22 oxycodone-acetaminophen 5 mg-325 1 tab PO Q4H PRN pain (scale score 10/14/22 mg tablet (Percocet) 7-10) #10 tabs carbamazepine 100 mg chewable 100 mg PO BID 30 days #60 tabs 11/13/22 tablet ketorolac 10 mg tablet 10 mg PO Q6H PRN pain 5 days #20 11/13/22 tabs Allergies Allergy/AdvReac Type Severity Reaction Status Date / Time No Known Allergies Allergy Verified 11/13/22 05:49 Review of Systems Review of Systems: Constitutional : No Fever, No Chills ENT/Mouth : No Ear Pain, No Nasal Congestion, No sore throat Eyes: No Eye Pain, No Swelling, No Redness Cardiovascular : No Chest Pain, No SOB Respiratory : No Cough, No Sputum, No Dyspnea Gastrointestinal : No Nausea, No Vomiting, No Diarrhea, No Hematochezia, No Melena Genitourinary : No Dysuria, No Urinary Frequency, No Hematuria Musculoskeletal : No Myalgias Skin : No Skin Lesions, No rash Neuro : No Weakness, No Numbness, No Paresthesias, No Dizziness, No Headache Psych : positive Anxiety, positive Depression, positive SI/HI Heme/Lymph: No Lymphadenopathy Endocrine : No Polyuria, No Polydipsia ? All other systems reviewed and are negative Yes all other systems are reviewed and are negative [facility] Past Medical History Attestation statement: The following information was validated with the patient. Source: old records reviewed Medical History Anxiety Charcot Leanna Tooth muscular atrophy Depression Social History Social History Patient Tobacco Use Status: Never used Tobacco Substance Use Type: Marijuana Advance Directives: No Advance Directives Information Provided: No Physical Exam Vital Signs: Vital Signs: Last Vital Signs Temp 97.8 F 12/01/22 14:44 Pulse 81 12/01/22 14:44 Resp 18 12/01/22 14:44 BP 129/81 12/01/22 14:44 Pulse Ox 99 12/01/22 14:44 O2 Del Method 12/01/22 14:44 BMI result Body Mass Index 30.9 Appearance: Alert.?Oriented to person, place and time. No acute distress.?Normal affect. Eyes: Pupils equal, round and reactive to light.? ENT: Pharynx normal.?? Neck: Normal inspection.? Neck supple.?? CVS: Heart sounds normal. Normal heart rate and rhythm.? Pulses normal.?? Respiratory: No respiratory distress.? Lung sounds clear to auscultation bilaterally?? Abdomen: Soft and non-tender. Normoactive bowel sounds. No pulsatile mass.?? Skin: Skin warm and dry.? Normal skin color.? Normal skin turgor.?? Extremities: No lower extremity edema.? No calf ttp? Neuro: Moves all extremities spontaneously. Sensation intact bilaterally. CN II-XII intact. No focal neuro deficits. Ambulates with normal steady gait. Course Reevaluation(s) Reevaluation #1: Patient to be placed in physician observation as she will require additional time bed search to pursue. Time: 18:00 Medical Decision Making Medical Decision Making MDM Narrative: patient is a 32-year-old female presenting to the emergency department with suicidal ideations. Was seen by N in the community, has been made a section 12 inpatient bed search. Patient is without any physical complaints at this time. Vital signs are stable. No apparent distress. She is calm and cooperative. Admission/Observation Consideration of admission/observation: Escalation of care including admission/observation considered Admission for inpatient psychiatric services Lab Data MDM Lab Attestation statement: I reviewed the patient's lab results. Labs: Lab Results 12/01/22 12/01/22 12/01/22 Range/Units 14:19 14:19 14:19 Urine Test NEGATIVE (NEGATIVE) Urine Opiates Screen Not Detected (Not Detect) Urine Fentanyl Screen Not Detected (Not Detect) Ur Barbiturates Screen Not Detected (Not Detect) Ur Phencyclidine Scrn Not Detected (Not Detect) Ur Amphetamines Screen Not Detected (Not Detect) U Benzodiazepines Scrn Not Detected (Not Detect) Urine Cocaine Screen Not Detected (Not Detect) U Marijuana (THC) Screen POSITIVE H (Not Detect) COVID-19 ([facility]) Negative (Negative) COVID-19 Clin Com See Note Discharge Plan Discharge Clinical Impression: MDD (major depressive disorder) Patient Disposition: Admitted As Inpatient Interventions: [place]-Suicide Risk Severity Scale Last Done: 12/01/22 15:30 Admission Worksheet (ED) Last Done: 12/01/22 18:55 Discharge Date/Time: 12/01/22 18:57
--- NOTE | 2022-12-01 17:18 | MHC.CARE ---
Seen by NEFTALI in critical access hospital at [facility], bed search currently for inpatient level of care.
[2022-12-01] MEDS: traZODone HCL 50 MG TABLET PO (21:15)
[2022-12-01] MEDS: Gabapentin 300 MG CAPSULE PO (21:16)
[2022-12-01 22:49] LABS: Appearance Urine Clear; Color Urine Yellow; Glucose Urine UA Negative (Negative); Leukocyte Esterase Urine Moderate (2+) (Negative); Nitrite Urine Negative (Negative); PH 6.5 (5.0-9.0); Specific Gravity - Urine <= 1.005 (1.005-1.025); UMIC TRIGGER UACC YES; Urine Blood Negative (Negative); Urine Ketones Negative (Negative); Urine Protein Negative (Neg-Trace)
[2022-12-01 22:51] LABS: Bacteria Urine Trace (None Seen); Hyaline Casts Urine 0-2 /LPF (0-2); RBC Urine 0-2 /HPF (0-2); UACC Culture Trigger YES
--- NOTE | 2022-12-02 01:00 | PC.ADMIT ---
pt is a 32 year of female who presented [facility] after being assessed by Angus degroot. pt has a PMH of CMT disease, depressive disorder, anxiety disorder. pt uses THC ocassionally. during admission, pt reported she was tired and wanted to finish the admission. pt called a few family members and she went to sleep soon after using trazodone. pt says her CMT disease causes pangs of pain around her body. pt says she quit her job because of the pain and stress of work.
[2022-12-02] MEDS: nitrofurantoin macrocrystaL 50 MG CAPSULE PO ×4 (06:22→20:02)
[2022-12-02 08:53] VITALS: BP 132/69; PULSE 86; RESP 18; TEMP 36.8; O2SAT 97
[2022-12-02] MEDS: Gabapentin 300 MG CAPSULE PO ×2 (08:54→12:52)
[2022-12-02 09:27] LABS: Estimated Average Glucose 105 mg/dL; Hemoglobin A1C 113.1265 umol/L; Hemoglobin A1c % 5.3 %
[2022-12-02 09:51] LABS: Cholesterol 136 mg/dL; HDL Cholesterol 50 mg/dL; LDL Cholesterol Calculated 74 mg/dl; Magnesium 2.1 mg/dL (1.6-2.6); Triglycerides 61 mg/dL
--- NOTE | 2022-12-02 10:00 | P.PNPSI_ITS ---
Subjective Subjective Date of Service: 12/02/22 Reason For Visit: Depression with SI Diagnostics Vital Signs (24Hr): Vital Signs - 24 hr 12/01/22 14:44 12/02/22 08:53 Temperature 97.8 F 98.2 F Pulse Rate 81 86 Respiratory Rate 18 18 Blood Pressure 129/81 132/69 Pulse Oximetry 99 97 Oxygen Delivery Method Room Air Room Air BMI result Body Mass Index 30.9 Labs Labs: Laboratory Results - last 48 hr 12/01/22 12/01/22 12/01/22 14:19 14:19 14:19 Estimat Average Glucose Hemoglobin A1c % Magnesium Triglycerides Cholesterol LDL Cholesterol, Calc HDL Cholesterol Urine Color Urine Appearance Urine pH Ur Specific [place] Urine Protein Urine Glucose (UA) Urine Ketones Urine Blood Urine Nitrite Ur Leukocyte Esterase Urine RBC Urine WBC Urine WBC Clumps Ur Squamous Epith Cells Ur Transition Epith Cell Ur Renal Epithelial Cell Calcium Oxalate Crystal Leucine Crystals Cystine Crystals Tyrosine Crystals Other Crystals Urine Bacteria Urine Parasites Bilirubin Casts Epithelial Casts Fatty Casts Hyaline Casts Granular Casts Waxy Casts Broad Casts RBC Casts WBC Casts Other Casts Urine Trichomonas Urine Yeast Urine Test NEGATIVE Urine Opiates Screen Not Detected Urine Fentanyl Screen Not Detected Ur Barbiturates Screen Not Detected Ur Phencyclidine Scrn Not Detected Ur Amphetamines Screen Not Detected U Benzodiazepines Scrn Not Detected Urine Cocaine Screen Not Detected U Marijuana (THC) Screen POSITIVE H COVID-19 ([facility]) Negative COVID-19 Clin Com See Note 12/01/22 12/01/22 12/02/22 14:19 14:19 08:03 Estimat Average Glucose 105 Hemoglobin A1c % 5.3 Magnesium Triglycerides Cholesterol LDL Cholesterol, Calc HDL Cholesterol Urine Color Yellow Cancelled Urine Appearance Clear Cancelled Urine pH 6.5 Cancelled Ur Specific [place] <= 1.005 Cancelled Urine Protein Negative Cancelled Urine Glucose (UA) Negative Cancelled Urine Ketones Negative Cancelled Urine Blood Negative Cancelled Urine Nitrite Negative Cancelled Ur Leukocyte Esterase Moderate (2+) H Cancelled Urine RBC 0-2 Cancelled Urine WBC 11-20 H Cancelled Urine WBC Clumps PANEL BEATER Cancelled Ur Squamous Epith Cells 3-5 Cancelled Ur Transition Epith Cell PANEL BEATER Cancelled Ur Renal Epithelial Cell PANEL BEATER Cancelled Calcium Oxalate Crystal PANEL BEATER Cancelled Leucine Crystals PANEL BEATER Cancelled Cystine Crystals PANEL BEATER Cancelled Tyrosine Crystals PANEL BEATER Cancelled Other Crystals PANEL BEATER Cancelled Urine Bacteria Trace Cancelled Urine Parasites PANEL BEATER Cancelled Bilirubin Casts PANEL BEATER Cancelled Epithelial Casts PANEL BEATER Cancelled Fatty Casts PANEL BEATER Cancelled Hyaline Casts 0-2 Cancelled Granular Casts PANEL BEATER Cancelled Waxy Casts PANEL BEATER Cancelled Broad Casts PANEL BEATER Cancelled RBC Casts PANEL BEATER Cancelled WBC Casts PANEL BEATER Cancelled Other Casts PANEL BEATER Cancelled Urine Trichomonas PANEL BEATER Cancelled Urine Yeast PANEL BEATER Cancelled Urine Test Urine Opiates Screen Urine Fentanyl Screen Ur Barbiturates Screen Ur Phencyclidine Scrn Ur Amphetamines Screen U Benzodiazepines Scrn Urine Cocaine Screen U Marijuana (THC) Screen COVID-19 ([facility]) COVID-19 Clin Com 12/02/22 08:03 Estimat Average Glucose Hemoglobin A1c % Magnesium 2.1 Triglycerides 61 Cholesterol 136 LDL Cholesterol, Calc 74 HDL Cholesterol 50 Urine Color Urine Appearance Urine pH Ur Specific [place] Urine Protein Urine Glucose (UA) Urine Ketones Urine Blood Urine Nitrite Ur Leukocyte Esterase Urine RBC Urine WBC Urine WBC Clumps Ur Squamous Epith Cells Ur Transition Epith Cell Ur Renal Epithelial Cell Calcium Oxalate Crystal Leucine Crystals Cystine Crystals Tyrosine Crystals Other Crystals Urine Bacteria Urine Parasites Bilirubin Casts Epithelial Casts Fatty Casts Hyaline Casts Granular Casts Waxy Casts Broad Casts RBC Casts WBC Casts Other Casts Urine Trichomonas Urine Yeast Urine Test Urine Opiates Screen Urine Fentanyl Screen Ur Barbiturates Screen Ur Phencyclidine Scrn Ur Amphetamines Screen U Benzodiazepines Scrn Urine Cocaine Screen U Marijuana (THC) Screen COVID-19 ([facility]) COVID-19 Clin Com Medications Medications Current Medications Acetaminophen (Acetaminophen 325 Mg Tablet) 650 mg PO Q6H PRN PRN Reason: Headache/Pain Mild Scale (1-3) Al Hydroxide/Mg Hydroxide (Magnesium Hydrox/Alum Hydrox 30 Ml Oral.Susp) 30 ml PO Q6H PRN PRN Reason: Heartburn/Nausea Carbamazepine (Carbamazepine 100 Mg Tab.Chew) 100 mg PO BID [facility] Last Admin: 12/02/22 08:55 Dose: Not Given Cyclobenzaprine HCl (Cyclobenzaprine Hcl 10 Mg Tablet) 10 mg PO TID PRN PRN Reason: Pain, Mild (Pain Scale 1-3) Gabapentin (Gabapentin 300 Mg Capsule) 300 mg PO TID [facility] Last Admin: 12/02/22 08:54 Dose: 300 mg Hydroxyzine HCl (Hydroxyzine Hcl 25 Mg Tablet) 25 mg PO Q6H PRN PRN Reason: Anxiety Magnesium Hydroxide (Milk Of Magnesia 30 Ml Oral.Susp) 30 ml PO DAILY PRN PRN Reason: Constipation Nitrofurantoin Macrocrystals (Nitrofurantoin Macrocrystal 50 Mg Capsule) 50 mg PO Q6H [facility] Stop: 12/09/22 07:00 Last Admin: 12/02/22 06:22 Dose: 50 mg Oxycodone HCl (Oxycodone Hcl Immed Release 5 Mg Tablet) 5 mg PO Q6H PRN PRN Reason: Pain, Mild (Pain Scale 1-3) Phenazopyridine HCl (Phenazopyridine Hcl 100 Mg Tablet) 100 mg PO TIDWM PRN PRN Reason: uti pain Stop: 12/04/22 05:24 Trazodone HCl (Trazodone Hcl 50 Mg Tablet) 50 mg PO BEDTIME PRN PRN Reason: Insomnia Last Admin: 12/01/22 21:15 Dose: 50 mg Allergies Allergies Allergy/AdvReac Type Severity Reaction Status Date / Time No Known Allergies Allergy Verified 11/13/22 05:49 Assessment & Plan Time Spent With Patient Time: Total time managing care of this patient today ____ minutes.
--- NOTE | 2022-12-02 10:02 | HO.PSYADMNOT ---
HPI Date of Service: 12/02/22 Chief Complaint: Depression with SI Sources of Information: patient interviewed, chart reviewed and crisis/core team assessment reviewed HPI Subjective Notes: [place] Warning and Conditional Voluntary Narrative: pt is a 32 yo female, mother of 2, w/ hx of MDD, PTSD and Charcot Leanna Tooth Disease who presents for worsening depressive symptoms in face of being off medications that were only partially helpful. Pt has been living as a single mom in [place], working, taking Wellbutrin and abilify; depression at [place], but started to increase as life was difficult juggling working and raising son; she moved to [place] to be near her sister but has not had a prescriber and has been off meds for about a month. Depression worsened to point where pt hardly gets out of bed, eats little, not attending to ADL's, hopeless, no energy, in interest, trouble sleeping and recently with SI, wishing she were and then with thoughts of overdosing. Love for her children keeps her from attempting. Pt self-presents due to worsening symptoms. Denies any etoh/drug abuse; does use cannabis; denies hx of manic type episodes, behaviors. Hx of trauma with nightmares, being easily startled, some flashbacks. Agrees to med managment. 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 supportive sister and ; kids are staying w/ them Substance History: 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 ; detoxed and sober since Trauma History: hx of trauma; pt did not disclose details Diagnostics Vital Signs (24Hr): Vital Signs - 24 hr 12/01/22 14:44 12/02/22 08:53 Temperature 97.8 F 98.2 F Pulse Rate 81 86 Respiratory Rate 18 18 Blood Pressure 129/81 132/69 Pulse Oximetry 99 97 Oxygen Delivery Method Room Air Room Air BMI result Body Mass Index 30.9 Labs Labs: Laboratory Results - last 48 hr 12/01/22 12/01/22 12/01/22 14:19 14:19 14:19 Estimat Average Glucose Hemoglobin A1c % Magnesium Triglycerides Cholesterol LDL Cholesterol, Calc HDL Cholesterol Urine Color Urine Appearance Urine pH Ur Specific [place] Urine Protein Urine Glucose (UA) Urine Ketones Urine Blood Urine Nitrite Ur Leukocyte Esterase Urine RBC Urine WBC Urine WBC Clumps Ur Squamous Epith Cells Ur Transition Epith Cell Ur Renal Epithelial Cell Calcium Oxalate Crystal Leucine Crystals Cystine Crystals Tyrosine Crystals Other Crystals Urine Bacteria Urine Parasites Bilirubin Casts Epithelial Casts Fatty Casts Hyaline Casts Granular Casts Waxy Casts Broad Casts RBC Casts WBC Casts Other Casts Urine Trichomonas Urine Yeast Urine Test NEGATIVE Urine Opiates Screen Not Detected Urine Fentanyl Screen Not Detected Ur Barbiturates Screen Not Detected Ur Phencyclidine Scrn Not Detected Ur Amphetamines Screen Not Detected U Benzodiazepines Scrn Not Detected Urine Cocaine Screen Not Detected U Marijuana (THC) Screen POSITIVE H COVID-19 ([facility]) Negative COVID-19 Clin Com See Note 12/01/22 12/01/22 12/02/22 14:19 14:19 08:03 Estimat Average Glucose 105 Hemoglobin A1c % 5.3 Magnesium Triglycerides Cholesterol LDL Cholesterol, Calc HDL Cholesterol Urine Color Yellow Cancelled Urine Appearance Clear Cancelled Urine pH 6.5 Cancelled Ur Specific [place] <= 1.005 Cancelled Urine Protein Negative Cancelled Urine Glucose (UA) Negative Cancelled Urine Ketones Negative Cancelled Urine Blood Negative Cancelled Urine Nitrite Negative Cancelled Ur Leukocyte Esterase Moderate (2+) H Cancelled Urine RBC 0-2 Cancelled Urine WBC 11-20 H Cancelled Urine WBC Clumps AUTOMOBILE BUMPER STRAIGHTENER Cancelled Ur Squamous Epith Cells 3-5 Cancelled Ur Transition Epith Cell AUTOMOBILE BUMPER STRAIGHTENER Cancelled Ur Renal Epithelial Cell AUTOMOBILE BUMPER STRAIGHTENER Cancelled Calcium Oxalate Crystal AUTOMOBILE BUMPER STRAIGHTENER Cancelled Leucine Crystals AUTOMOBILE BUMPER STRAIGHTENER Cancelled Cystine Crystals AUTOMOBILE BUMPER STRAIGHTENER Cancelled Tyrosine Crystals AUTOMOBILE BUMPER STRAIGHTENER Cancelled Other Crystals AUTOMOBILE BUMPER STRAIGHTENER Cancelled Urine Bacteria Trace Cancelled Urine Parasites AUTOMOBILE BUMPER STRAIGHTENER Cancelled Bilirubin Casts AUTOMOBILE BUMPER STRAIGHTENER Cancelled Epithelial Casts AUTOMOBILE BUMPER STRAIGHTENER Cancelled Fatty Casts AUTOMOBILE BUMPER STRAIGHTENER Cancelled Hyaline Casts 0-2 Cancelled Granular Casts AUTOMOBILE BUMPER STRAIGHTENER Cancelled Waxy Casts AUTOMOBILE BUMPER STRAIGHTENER Cancelled Broad Casts AUTOMOBILE BUMPER STRAIGHTENER Cancelled RBC Casts AUTOMOBILE BUMPER STRAIGHTENER Cancelled WBC Casts AUTOMOBILE BUMPER STRAIGHTENER Cancelled Other Casts AUTOMOBILE BUMPER STRAIGHTENER Cancelled Urine Trichomonas AUTOMOBILE BUMPER STRAIGHTENER Cancelled Urine Yeast AUTOMOBILE BUMPER STRAIGHTENER Cancelled Urine Test Urine Opiates Screen Urine Fentanyl Screen Ur Barbiturates Screen Ur Phencyclidine Scrn Ur Amphetamines Screen U Benzodiazepines Scrn Urine Cocaine Screen U Marijuana (THC) Screen COVID-19 ([facility]) COVID-19 [facility] 12/02/22 08:03 Estimat Average Glucose Hemoglobin A1c % Magnesium 2.1 Triglycerides 61 Cholesterol 136 LDL Cholesterol, Calc 74 HDL Cholesterol 50 Urine Color Urine Appearance Urine pH Ur Specific [place] Urine Protein Urine Glucose (UA) Urine Ketones Urine Blood Urine Nitrite Ur Leukocyte Esterase Urine RBC Urine WBC Urine WBC Clumps Ur Squamous Epith Cells Ur Transition Epith Cell Ur Renal Epithelial Cell Calcium Oxalate Crystal Leucine Crystals Cystine Crystals Tyrosine Crystals Other Crystals Urine Bacteria Urine Parasites Bilirubin Casts Epithelial Casts Fatty Casts Hyaline Casts Granular Casts Waxy Casts Broad Casts RBC Casts WBC Casts Other Casts Urine Trichomonas Urine Yeast Urine Test Urine Opiates Screen Urine Fentanyl Screen Ur Barbiturates Screen Ur Phencyclidine Scrn Ur Amphetamines Screen U Benzodiazepines Scrn Urine Cocaine Screen U Marijuana (THC) Screen COVID-19 ([facility]) COVID-19 [facility] Meds/Allergies Meds Home Medications Medication Instructions Recorded Confirmed Type aripiprazole 5 mg tablet (Abilify) 5 mg PO DAILY 12/02/22 12/02/22 History Allergies Allergies Allergy/AdvReac Type Severity Reaction Status Date / Time No Known Allergies Allergy Verified 11/13/22 05:49 Mental Status Exam Mental Status Exam Narrative: Pt is alert and oriented; behavior is cooperative, slow moving, quiet; patient is not in distress; dressed in casual attire with unkempt hair but adequate hygiene; mood is described as depressed and affect congruent, downcast; eye contact minimal; Speech is slowed, soft; normal prosody; psychomotor retardation present; thought process is organized and goal directed; Thought content is on [place] but also on [place], her children; otherwise pertinent to relevant topics and without any delusional content, paranoid ideations or grandiosity; +SI; no HI. There is no evidence of perceptual disturbance and denies AVH. Patients insight and judgment are impaired. Assessment & Plan Assessment & Plan (1) MDD (major depressive disorder): Status: Acute Code(s): F32.9 - Major depressive disorder, single episode, unspecified (2) PTSD (post-traumatic stress disorder): Status: Acute Code(s): F43.10 - Post-traumatic stress disorder, unspecified Plan pt is a 32 yo female w/ hx of MDD, PTSD and Charcot Leanna Tooth Disease who presents for worsening depressive symptoms in face of being off medications that were only partially helpful.?Pt reports she has borderline personality disorder. -patient has been on Wellbutrin XL 150mg for 4 years w/out increase in dose; same with Abilify; pt says both together were partially helpful. 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 No changes have occurred unless specified. If the History and Physical was not performed prior to admission, the Hospitalist's service will be consulted for completing the admission physical. Time Spent With Patient Time: Total time managing care of this patient today ____ minutes.
[2022-12-02 10:11] LABS: Free T4 (Free Thyroxine) 1.04 ng/dL (0.71-1.85); Thyroid Stimulating Hormone 0.61 uIU/mL (0.32-4.0)
[2022-12-02 10:23] LABS: Folate 10.9 ng/mL (> or = 4.0); Vitamin B12 397 pg/mL (200-900)
[2022-12-02] MEDS: hydrOXYzine HCL 25 MG TABLET PO (10:23)
[2022-12-02] MEDS: Cyclobenzaprine HCl 10 MG TABLET PO ×2 (10:23→19:29)
[2022-12-02] MEDS: buPROPion HCl XL 150 MG TAB.ER.24H PO (12:52)
[2022-12-02] MEDS: Gabapentin 400 MG CAPSULE 800 MG PO ×2 (17:12→19:29)
[2022-12-02 18:00] VITALS: BP 128/62; PULSE 85; RESP 16; TEMP 36.4; O2SAT 98
[2022-12-02] MEDS: traZODone HCL 50 MG TABLET PO (19:29)
[2022-12-03 06:00] VITALS: BP 128/72; PULSE 105; RESP 18; O2SAT 99
[2022-12-03] MEDS: nitrofurantoin macrocrystaL 50 MG CAPSULE PO ×3 (06:29→18:53)
[2022-12-03] MEDS: buPROPion HCl XL 150 MG TAB.ER.24H PO (08:29)
[2022-12-03] MEDS: Gabapentin 400 MG CAPSULE 800 MG PO ×3 (08:29→20:00)
[2022-12-03] MEDS: hydrOXYzine HCL 25 MG TABLET PO ×2 (08:43→20:00)
--- NOTE | 2022-12-03 10:55 | P.PNPSI_ITS ---
Subjective Subjective Date of Service: 12/03/22 Reason For Visit: Depression with SI Interim History: Patient remains depressed and though she forced herself to go to a group, overall feels anxious in the milieu and has spent most the time in her room in bed. Regarding SI? it's there...i ignore it...i wake up and ask 'why' am I here...then i remember there's little people that need me. Agrees to titrate Wellbutrin. Will try clonidine for anxiety and insomnia eating a little more. Mental Status Exam Mental Status Exam Narrative: Pt is alert and oriented; behavior is cooperative, slow moving, quiet; patient is not in distress; dressed in casual attire with unkempt hair but adequate hygiene; mood is described as depressed and affect congruent, downcast; eye contact minimal; Speech is slowed, soft; normal prosody; psychomotor retardation present; thought process is organized and goal directed; Thought content is on [place] but also on [place], her children; otherwise pertinent to relevant topics and without any delusional content, paranoid ideations or grandiosity; +SI; no HI. There is no evidence of perceptual disturbance and denies AVH. Patients insight and judgment are impaired. Diagnostics Vital Signs (24Hr): Vital Signs - 24 hr 12/02/22 18:00 12/03/22 06:00 Temperature 97.6 F Pulse Rate 85 105 H Respiratory Rate 16 18 Blood Pressure 128/62 128/72 Pulse Oximetry 98 99 Oxygen Delivery Method Room Air Room Air BMI result Body Mass Index 30.9 Labs Labs: Laboratory Results - last 48 hr 12/01/22 12/01/22 12/01/22 14:19 14:19 14:19 Estimat Average Glucose Hemoglobin A1c % Magnesium Triglycerides Cholesterol LDL Cholesterol, Calc HDL Cholesterol Vitamin B12 Folate TSH Free T4 Urine Color Urine Appearance Urine pH Ur Specific [place] Urine Protein Urine Glucose (UA) Urine Ketones Urine Blood Urine Nitrite Ur Leukocyte Esterase Urine RBC Urine WBC Urine WBC Clumps Ur Squamous Epith Cells Ur Transition Epith Cell Ur Renal Epithelial Cell Calcium Oxalate Crystal Leucine Crystals Cystine Crystals Tyrosine Crystals Other Crystals Urine Bacteria Urine Parasites Bilirubin Casts Epithelial Casts Fatty Casts Hyaline Casts Granular Casts Waxy Casts Broad Casts RBC Casts WBC Casts Other Casts Urine Trichomonas Urine Yeast Urine Test NEGATIVE Urine Opiates Screen Not Detected Urine Fentanyl Screen Not Detected Ur Barbiturates Screen Not Detected Ur Phencyclidine Scrn Not Detected Ur Amphetamines Screen Not Detected U Benzodiazepines Scrn Not Detected Urine Cocaine Screen Not Detected U Marijuana (THC) Screen POSITIVE H COVID-19 ([facility]) Negative COVID-19 [facility] Com See Note 12/01/22 12/01/22 12/02/22 14:19 14:19 08:03 Estimat Average Glucose 105 Hemoglobin A1c % 5.3 Magnesium Triglycerides Cholesterol LDL Cholesterol, Calc HDL Cholesterol Vitamin B12 Folate TSH Free T4 Urine Color Yellow Cancelled Urine Appearance Clear Cancelled Urine pH 6.5 Cancelled Ur Specific [place] <= 1.005 Cancelled Urine Protein Negative Cancelled Urine Glucose (UA) Negative Cancelled Urine Ketones Negative Cancelled Urine Blood Negative Cancelled Urine Nitrite Negative Cancelled Ur Leukocyte Esterase Moderate (2+) H Cancelled Urine RBC 0-2 Cancelled Urine WBC 11-20 H Cancelled Urine WBC Clumps TRIM MACHINE ADJUSTER Cancelled Ur Squamous Epith Cells 3-5 Cancelled Ur Transition Epith Cell TRIM MACHINE ADJUSTER Cancelled Ur Renal Epithelial Cell TRIM MACHINE ADJUSTER Cancelled Calcium Oxalate Crystal TRIM MACHINE ADJUSTER Cancelled Leucine Crystals TRIM MACHINE ADJUSTER Cancelled Cystine Crystals TRIM MACHINE ADJUSTER Cancelled Tyrosine Crystals TRIM MACHINE ADJUSTER Cancelled Other Crystals TRIM MACHINE ADJUSTER Cancelled Urine Bacteria Trace Cancelled Urine Parasites TRIM MACHINE ADJUSTER Cancelled Bilirubin Casts TRIM MACHINE ADJUSTER Cancelled Epithelial Casts TRIM MACHINE ADJUSTER Cancelled Fatty Casts TRIM MACHINE ADJUSTER Cancelled Hyaline Casts 0-2 Cancelled Granular Casts TRIM MACHINE ADJUSTER Cancelled Waxy Casts TRIM MACHINE ADJUSTER Cancelled Broad Casts TRIM MACHINE ADJUSTER Cancelled RBC Casts TRIM MACHINE ADJUSTER Cancelled WBC Casts TRIM MACHINE ADJUSTER Cancelled Other Casts TRIM MACHINE ADJUSTER Cancelled Urine Trichomonas TRIM MACHINE ADJUSTER Cancelled Urine Yeast TRIM MACHINE ADJUSTER Cancelled Urine Test Urine Opiates Screen Urine Fentanyl Screen Ur Barbiturates Screen Ur Phencyclidine Scrn Ur Amphetamines Screen U Benzodiazepines Scrn Urine Cocaine Screen U Marijuana (THC) Screen COVID-19 ([facility]) COVID-19 [facility] 12/02/22 12/02/22 08:03 08:03 Estimat Average Glucose Hemoglobin A1c % Magnesium 2.1 Triglycerides 61 Cholesterol 136 LDL Cholesterol, Calc 74 HDL Cholesterol 50 Vitamin B12 397 Folate 10.9 TSH 0.61 Free T4 1.04 Urine Color Urine Appearance Urine pH Ur Specific [place] Urine Protein Urine Glucose (UA) Urine Ketones Urine Blood Urine Nitrite Ur Leukocyte Esterase Urine RBC Urine WBC Urine WBC Clumps Ur Squamous Epith Cells Ur Transition Epith Cell Ur Renal Epithelial Cell Calcium Oxalate Crystal Leucine Crystals Cystine Crystals Tyrosine Crystals Other Crystals Urine Bacteria Urine Parasites Bilirubin Casts Epithelial Casts Fatty Casts Hyaline Casts Granular Casts Waxy Casts Broad Casts RBC Casts WBC Casts Other Casts Urine Trichomonas Urine Yeast Urine Test Urine Opiates Screen Urine Fentanyl Screen Ur Barbiturates Screen Ur Phencyclidine Scrn Ur Amphetamines Screen U Benzodiazepines Scrn Urine Cocaine Screen U Marijuana (THC) Screen COVID-19 ([facility]) COVID-19 Clin Com Medications Medications Current Medications Acetaminophen (Acetaminophen 325 Mg Tablet) 650 mg PO Q6H PRN PRN Reason: Headache/Pain Mild Scale (1-3) Al Hydroxide/Mg Hydroxide (Magnesium Hydrox/Alum Hydrox 30 Ml Oral.Susp) 30 ml PO Q6H PRN PRN Reason: Heartburn/Nausea Bupropion HCl (Bupropion Hcl Xl 150 Mg Tab.Er.24h) 150 mg PO DAILY [facility] Last Admin: 12/03/22 08:29 Dose: 150 mg Cyclobenzaprine HCl (Cyclobenzaprine Hcl 10 Mg Tablet) 10 mg PO TID PRN PRN Reason: Pain, Mild (Pain Scale 1-3) Last Admin: 12/02/22 19:29 Dose: 10 mg Gabapentin (Gabapentin 400 Mg Capsule) 800 mg PO TID [facility] Last Admin: 12/03/22 08:29 Dose: 800 mg Hydroxyzine HCl (Hydroxyzine Hcl 25 Mg Tablet) 25 mg PO Q6H PRN PRN Reason: Anxiety Last Admin: 12/03/22 08:43 Dose: 25 mg Magnesium Hydroxide (Milk Of Magnesia 30 Ml Oral.Susp) 30 ml PO DAILY PRN PRN Reason: Constipation Nitrofurantoin Macrocrystals (Nitrofurantoin Macrocrystal 50 Mg Capsule) 50 mg PO Q6H [facility] Stop: 12/09/22 07:00 Last Admin: 12/03/22 06:29 Dose: 50 mg Phenazopyridine HCl (Phenazopyridine Hcl 100 Mg Tablet) 100 mg PO TIDWM PRN PRN Reason: uti pain Stop: 12/04/22 05:24 Trazodone HCl (Trazodone Hcl 50 Mg Tablet) 50 mg PO BEDTIME PRN PRN Reason: Insomnia Last Admin: 12/02/22 19:29 Dose: 50 mg Allergies Allergies Allergy/AdvReac Type Severity Reaction Status Date / Time No Known Allergies Allergy Verified 11/13/22 05:49 Assessment & Plan Assessment & Plan (1) MDD (major depressive disorder): Status: Acute Code(s): F32.9 - Major depressive disorder, single episode, unspecified (2) PTSD (post-traumatic stress disorder): Status: Acute Code(s): F43.10 - Post-traumatic stress disorder, unspecified Plan pt is a 32 yo female w/ hx of MDD, PTSD and Charcot Leanna Tooth Disease who presents for worsening depressive symptoms in face of being off medications that were only partially helpful.?Pt reports she has borderline personality disorder. -patient has been on Wellbutrin XL 150mg for 4 years w/out increase in dose; same with Abilify; pt says both together were partially helpful. -hx of panic attacks and nightmares -recently started on Tegretol for body pain related to CMT but sauys it makes her nauseas and maybe more depressed -discussed med regimen; see below PLAN: CV q15min checks Increase Wellbutrin XL to 300 mg daily; pt may not need Abilify if Wellbutrin higher Hold off on restarting Abilify for now Add clonidine 0.1 mg p.r.n. 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
[2022-12-03 16:45] VITALS: BP 132/87; PULSE 106; RESP 16; TEMP 36.1
[2022-12-03] MEDS: cloNIDine HCL 0.1 MG TABLET PO (16:48)
[2022-12-03] MEDS: traZODone HCL 50 MG TABLET PO (20:00)
[2022-12-04 06:00] VITALS: BP 95/58; PULSE 86; RESP 18; TEMP 36.5; O2SAT 98
[2022-12-04] MEDS: nitrofurantoin macrocrystaL 50 MG CAPSULE PO ×4 (06:42→20:34)
[2022-12-04] MEDS: Gabapentin 400 MG CAPSULE 800 MG PO ×3 (09:07→20:33)
[2022-12-04] MEDS: buPROPion HCl XL 300 MG TAB.ER.24H PO (09:07)
[2022-12-04] MEDS: Cyclobenzaprine HCl 10 MG TABLET PO ×2 (09:13→17:32)
[2022-12-04] MEDS: hydrOXYzine HCL 25 MG TABLET PO ×3 (09:13→23:52)
--- NOTE | 2022-12-04 09:46 | HO.PSYCHPN ---
Subjective Subjective Date of Service: 12/04/22 Reason For Visit: Depression with SI Interim History: Patient continues to feel depressed but is pushing herself more to go to groups. She said she found herself very anxious around others and really wanted to leave. Patient reports worsening pain. She says it feels like a flare-up of CMT and she asks for either Toradol or oxycodone. Discussed increased Wellbutrin as possible factor in anxiety however patient says this level of anxiety it is not new, was present at this level before admission and she does not think it is due to increased Wellbutrin dose Mental Status Exam Mental Status Exam Narrative: Pt is alert and oriented; behavior is cooperative, slow moving, quiet; patient is not in distress; dressed in casual attire with unkempt hair but adequate hygiene; mood is described as depressed and affect congruent, downcast; eye contact minimal; Speech is slowed, soft; normal prosody; psychomotor retardation present; thought process is organized and goal directed; Thought content is on wish but also on [place], her children; otherwise pertinent to relevant topics and without any delusional content, paranoid ideations or grandiosity; +SI; no HI. There is no evidence of perceptual disturbance and denies AVH. Patients insight and judgment are impaired. Diagnostics Vital Signs (24Hr): Vital Signs - 24 hr 12/03/22 16:45 12/04/22 06:00 Temperature 97.0 F 97.7 F Pulse Rate 106 H 86 Respiratory Rate 16 18 Blood Pressure 132/87 95/58 L Pulse Oximetry 98 Oxygen Delivery Method Room Air BMI result Body Mass Index 30.9 Labs Labs: Laboratory Results - last 48 hr 12/02/22 12/02/22 08:03 08:03 Magnesium 2.1 Triglycerides 61 Cholesterol 136 LDL Cholesterol, Calc 74 HDL Cholesterol 50 Vitamin B12 397 Folate 10.9 TSH 0.61 Free T4 1.04 Medications Medications Current Medications Acetaminophen (Acetaminophen 325 Mg Tablet) 650 mg PO Q6H PRN PRN Reason: Headache/Pain Mild Scale (1-3) Al Hydroxide/Mg Hydroxide (Magnesium Hydrox/Alum Hydrox 30 Ml Oral.Susp) 30 ml PO Q6H PRN PRN Reason: Heartburn/Nausea Bupropion HCl (Bupropion Hcl Xl 300 Mg Tab.Er.24h) 300 mg PO DAILY PATSY Last Admin: 12/04/22 09:07 Dose: 300 mg Clonidine HCl (Clonidine Hcl 0.1 Mg Tablet) 0.1 mg PO Q4H PRN; Protocol PRN Reason: anxiety/or groups Last Admin: 12/03/22 16:48 Dose: 0.1 mg Cyclobenzaprine HCl (Cyclobenzaprine Hcl 10 Mg Tablet) 10 mg PO TID PRN PRN Reason: Pain, Mild (Pain Scale 1-3) Last Admin: 12/04/22 09:13 Dose: 10 mg Gabapentin (Gabapentin 400 Mg Capsule) 800 mg PO TID PATSY Last Admin: 12/04/22 09:07 Dose: 800 mg Hydroxyzine HCl (Hydroxyzine Hcl 25 Mg Tablet) 25 mg PO Q6H PRN PRN Reason: Anxiety Last Admin: 12/04/22 09:13 Dose: 25 mg Magnesium Hydroxide (Milk Of Magnesia 30 Ml Oral.Susp) 30 ml PO DAILY PRN PRN Reason: Constipation Nitrofurantoin Macrocrystals (Nitrofurantoin Macrocrystal 50 Mg Capsule) 50 mg PO Q6H [facility] Stop: 12/09/22 07:00 Last Admin: 12/04/22 09:08 Dose: Not Given Trazodone HCl (Trazodone Hcl 50 Mg Tablet) 50 mg PO BEDTIME PRN PRN Reason: Insomnia Last Admin: 12/03/22 20:00 Dose: 50 mg Allergies Allergies Allergy/AdvReac Type Severity Reaction Status Date / Time No Known Allergies Allergy Verified 11/13/22 05:49 Assessment & Plan Assessment & Plan (1) MDD (major depressive disorder): Status: Acute Code(s): F32.9 - Major depressive disorder, single episode, unspecified (2) PTSD (post-traumatic stress disorder): Status: Acute Code(s): F43.10 - Post-traumatic stress disorder, unspecified Plan pt is a 32 yo female w/ hx of MDD, PTSD and Charcot Leanna Tooth Disease who presents for worsening depressive symptoms in face of being off medications that were only partially helpful.?Pt reports she has borderline personality disorder. -patient has been on Wellbutrin XL 150mg for 4 years w/out increase in dose; same with Abilify; pt says both together were partially helpful. -hx of panic attacks and nightmares -recently started on Tegretol for body pain related to CMT but sauys it makes her nauseas and maybe more depressed -discussed med regimen; see below Hospital course: 12/04/22 patient remains depressed and anxious however is a little more engage in discussion and with a little brighter affect; pushing herself to engage in groups. Patient reports increased pain from CMT flare. Says oxycodone has worked best in the past and says she only ever needs a few days of it. PLAN: CV q15min checks add oxycodone for CMT flare will not discharge on opiods (and pt does not want) Increase Wellbutrin XL to 300 mg daily; pt may not need Abilify if Wellbutrin higher Hold off on restarting Abilify for now Add clonidine 0.1 mg p.r.n. 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
[2022-12-04] MEDS: Acetaminophen 325 MG TABLET 650 MG PO (10:03)
--- NOTE | 2022-12-04 11:27 | PC.NURSE ---
Patient complained of high pain level due to neuropathic pain in back and neck. Gave patient 2 warm packs and prn medications.
--- NOTE | 2022-12-04 15:01 | PC.NURSE ---
Patient complained of sprained foot/ankle from injury that had not been x-rayed at previous location-MD aware.
[2022-12-04] MEDS: cloNIDine HCL 0.1 MG TABLET PO ×2 (16:17→20:33)
[2022-12-04 16:29] VITALS: BP 107/57; PULSE 75
[2022-12-04] MEDS: Acetaminophen 325 MG TABLET 975 MG PO (18:13)
[2022-12-04] MEDS: oxyCODONE HCl Immed Release 5 MG TABLET PO (18:13)
[2022-12-04] MEDS: traZODone HCL 50 MG TABLET PO ×2 (20:38→23:52)
[2022-12-05] MEDS: oxyCODONE HCl Immed Release 5 MG TABLET PO ×3 (04:18→17:08)
[2022-12-05] MEDS: nitrofurantoin macrocrystaL 50 MG CAPSULE PO ×4 (04:18→20:05)
[2022-12-05] MEDS: Cyclobenzaprine HCl 10 MG TABLET PO ×3 (04:19→14:57)
[2022-12-05] MEDS: Gabapentin 400 MG CAPSULE 800 MG PO ×3 (09:10→20:05)
[2022-12-05] MEDS: buPROPion HCl XL 300 MG TAB.ER.24H PO (09:11)
[2022-12-05 09:14] VITALS: BP 101/56; PULSE 71; RESP 16; TEMP 36.3; O2SAT 98
[2022-12-05] MEDS: hydrOXYzine HCL 25 MG TABLET PO ×2 (09:40→14:57)
[2022-12-05] MEDS: Acetaminophen 325 MG TABLET 975 MG PO (17:07)
--- NOTE | 2022-12-05 18:09 | P.PNPSI_ITS ---
Subjective Subjective Date of Service: 12/05/22 Reason For Visit: Depression with SI Interim History: pt is not sure if she feels less sad, however she notices her behaviors are more outward, that she's been able to laugh some; she still feels very anxious and finds it difficult to be around people or in groups. No active SI, but still wakes up wishing to not be here. 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 and she agreed to try Trileptal; also to switch to Prazosin qhs for nightmares Mental Status Exam Mental Status Exam Narrative: Pt is alert and oriented; behavior is cooperative, slow moving, quiet; patient is not in distress; dressed in casual attire and well groomed; mood is described as anxious/depressed and affect congruent, but no longer downcast and sometimes smiling; eye contact appropriate; Speech is normal volume, rate, prosody; some psychomotor retardation present; thought process is organized and goal directed; Thought content is on treatment; still with passive wish but less intense; thinking about her children; otherwise pertinent to relevant topics and without any delusional content, paranoid ideations or grandiosity; some intermittent passive SI but less often; no HI. There is no evidence of perceptual disturbance and denies AVH. Patients insight and judgment are impaired but improved and adequate. Diagnostics Vital Signs (24Hr): Vital Signs - 24 hr 12/05/22 09:14 Temperature 97.4 F Pulse Rate 71 Respiratory Rate 16 Blood Pressure 101/56 L Pulse Oximetry 98 Oxygen Delivery Method Room Air BMI result Body Mass Index 30.9 Medications Medications Current Medications Acetaminophen (Acetaminophen 325 Mg Tablet) 975 mg PO Q6H PRN PRN Reason: Headache/Pain Mild Scale (1-3) Last Admin: 12/05/22 17:07 Dose: 975 mg Al Hydroxide/Mg Hydroxide (Magnesium Hydrox/Alum Hydrox 30 Ml Oral.Susp) 30 ml PO Q6H PRN PRN Reason: Heartburn/Nausea Bupropion HCl (Bupropion Hcl Xl 300 Mg Tab.Er.24h) 300 mg PO DAILY PATSY Last Admin: 12/05/22 09:11 Dose: 300 mg Clonidine HCl (Clonidine Hcl 0.1 Mg Tablet) 0.1 mg PO Q4H PRN; Protocol PRN Reason: anxiety/or groups Last Admin: 12/04/22 16:17 Dose: 0.1 mg Cyclobenzaprine HCl (Cyclobenzaprine Hcl 10 Mg Tablet) 10 mg PO TID PRN PRN Reason: Pain, Mild (Pain Scale 1-3) Last Admin: 12/05/22 14:57 Dose: 10 mg Gabapentin (Gabapentin 400 Mg Capsule) 800 mg PO TID PATSY Last Admin: 12/05/22 14:54 Dose: 800 mg Hydroxyzine HCl (Hydroxyzine Hcl 50 Mg Tablet) 50 mg PO Q6H PRN PRN Reason: Anxiety Magnesium Hydroxide (Milk Of Magnesia 30 Ml Oral.Susp) 30 ml PO DAILY PRN PRN Reason: Constipation Nitrofurantoin Macrocrystals (Nitrofurantoin Macrocrystal 50 Mg Capsule) 50 mg PO Q6H [facility] Stop: 12/09/22 07:00 Last Admin: 12/05/22 17:07 Dose: 50 mg Oxcarbazepine (Oxcarbazepine 150 Mg Tablet) 150 mg PO BID PATSY Oxycodone HCl (Oxycodone Hcl Immed Release 5 Mg Tablet) 5 mg PO TID PRN PRN Reason: Pain, Severe (Pain Scale 7-10) Last Admin: 12/05/22 17:08 Dose: 5 mg Prazosin HCl (Prazosin Hcl 1 Mg Capsule) 1 mg PO BEDTIME PATSY; Protocol Trazodone HCl (Trazodone Hcl 50 Mg Tablet) 50 mg PO BEDTIME PRN PRN Reason: Insomnia Last Admin: 12/04/22 23:52 Dose: 50 mg Allergies Allergies Allergy/AdvReac Type Severity Reaction Status Date / Time No Known Allergies Allergy Verified 11/13/22 05:49 Assessment & Plan Assessment & Plan (1) MDD (major depressive disorder): Status: Acute Code(s): F32.9 - Major depressive disorder, single episode, unspecified (2) PTSD (post-traumatic stress disorder): Status: Acute Code(s): F43.10 - Post-traumatic stress disorder, unspecified Plan pt is a 32 yo female w/ hx of MDD, PTSD and Charcot Leanna Tooth Disease who presents for worsening depressive symptoms in face of being off medications that were only partially helpful.?Pt reports she has borderline personality disorder. -patient has been on Wellbutrin XL 150mg for 4 years w/out increase in dose; same with Abilify; pt says both together were partially helpful. -hx of panic attacks and nightmares -recently started on Tegretol for body pain related to CMT but sauys it makes her nauseas and maybe more depressed -discussed med regimen; see below Hospital course: 12/04/22 patient remains depressed and anxious however is a little more engage in discussion and with a little brighter affect; pushing herself to engage in groups. Patient reports increased pain from CMT flare. Says oxycodone has worked best in the past and says she only ever needs a few days of it. 12/05/22 pt still depressed, but less intensely so; still quite anxious; agrees to start trileptal (discussed risks/side-effects) PLAN: CV q15min checks add oxycodone for CMT flare will not discharge on opiods (and pt does not want) start Trileptal 150mg BID -will check CBC, lytes, LFTs Continue Wellbutrin XL to 300 mg daily; pt may not need Abilify if Wellbutrin hi gher Hold off on restarting Abilify for now Add clonidine 0.1 mg p.r.n. 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
[2022-12-05 18:38] VITALS: BP 87/35; RESP 18; TEMP 36.4; O2SAT 92
[2022-12-05] MEDS: Prazosin HCL 1 MG CAPSULE PO (20:05)
[2022-12-05] MEDS: traZODone HCL 50 MG TABLET PO (20:05)
[2022-12-05] MEDS: OXcarbazepine 150 MG TABLET PO (20:05)
[2022-12-05 20:07] VITALS: BP 110/57; PULSE 101
[2022-12-06] MEDS: nitrofurantoin macrocrystaL 50 MG CAPSULE PO ×4 (06:08→19:16)
[2022-12-06 08:16] VITALS: BP 88/50; PULSE 79; RESP 16; TEMP 36.8; O2SAT 97
[2022-12-06] MEDS: buPROPion HCl XL 300 MG TAB.ER.24H PO (09:19)
[2022-12-06] MEDS: OXcarbazepine 150 MG TABLET PO ×2 (09:19→19:12)
[2022-12-06] MEDS: Gabapentin 400 MG CAPSULE 800 MG PO ×3 (09:19→19:12)
[2022-12-06] MEDS: cloNIDine HCL 0.1 MG TABLET PO ×2 (09:44→15:28)
[2022-12-06] MEDS: Cyclobenzaprine HCl 10 MG TABLET PO (09:44)
[2022-12-06] MEDS: oxyCODONE HCl Immed Release 5 MG TABLET PO ×2 (09:44→16:13)
[2022-12-06 09:48] VITALS: BP 101/62
--- NOTE | 2022-12-06 10:23 | HO.PSYCHPN ---
Subjective Subjective Date of Service: 12/06/22 Reason For Visit: Depression with SI Interim History: Mood is a little better and patient slept better last night, no nightmares.? Patient reported mild to moderate headache and wonders if it is medication related however she feels like it is tolerable and wants to continue with current med regimen.? She also says anxiety is a little better.? Still wakes up with passive wish however Mental Status Exam Mental Status Exam Narrative: Pt is alert and oriented; behavior is cooperative, calm; patient is not in distress; dressed in casual attire and well groomed; mood is described as a little better and affect congruent, no longer downcast and sometimes smiling; eye contact appropriate; Speech is normal volume, rate, prosody; some psychomotor retardation present; thought process is organized and goal directed; Thought content is on treatment; still with passive wish but less intense; thinking about her children; otherwise pertinent to relevant topics and without any delusional content, paranoid ideations or grandiosity; some intermittent passive SI but less often; no HI. There is no evidence of perceptual disturbance and denies AVH. Patients insight and judgment are impaired but improved and adequate. Diagnostics Vital Signs (24Hr): Vital Signs - 24 hr 12/05/22 18:38 12/05/22 20:07 12/06/22 08:16 Temperature 97.5 F 98.3 F Pulse Rate 101 H 79 Respiratory Rate 18 16 Blood Pressure 87/35 L 110/57 L 88/50 L Pulse Oximetry 92 97 Oxygen Delivery Method Room Air Room Air 12/06/22 09:48 Temperature Pulse Rate Respiratory Rate Blood Pressure 101/62 Pulse Oximetry Oxygen Delivery Method BMI result Body Mass Index 30.9 Medications Medications Current Medications Acetaminophen (Acetaminophen 325 Mg Tablet) 975 mg PO Q6H PRN PRN Reason: Headache/Pain Mild Scale (1-3) Last Admin: 12/05/22 17:07 Dose: 975 mg Al Hydroxide/Mg Hydroxide (Magnesium Hydrox/Alum Hydrox 30 Ml Oral.Susp) 30 ml PO Q6H PRN PRN Reason: Heartburn/Nausea Bupropion HCl (Bupropion Hcl Xl 300 Mg Tab.Er.24h) 300 mg PO DAILY PATSY Last Admin: 12/06/22 09:19 Dose: 300 mg Clonidine HCl (Clonidine Hcl 0.1 Mg Tablet) 0.1 mg PO Q4H PRN; Protocol PRN Reason: anxiety/or groups Last Admin: 12/06/22 09:44 Dose: 0.1 mg Cyclobenzaprine HCl (Cyclobenzaprine Hcl 10 Mg Tablet) 10 mg PO TID PRN PRN Reason: Pain, Mild (Pain Scale 1-3) Last Admin: 12/06/22 09:44 Dose: 10 mg Gabapentin (Gabapentin 400 Mg Capsule) 800 mg PO TID PATSY Last Admin: 12/06/22 09:19 Dose: 800 mg Hydroxyzine HCl (Hydroxyzine Hcl 50 Mg Tablet) 50 mg PO Q6H PRN PRN Reason: Anxiety Magnesium Hydroxide (Milk Of Magnesia 30 Ml Oral.Susp) 30 ml PO DAILY PRN PRN Reason: Constipation Nitrofurantoin Macrocrystals (Nitrofurantoin Macrocrystal 50 Mg Capsule) 50 mg PO Q6H [facility] Stop: 12/09/22 07:00 Last Admin: 12/06/22 06:08 Dose: 50 mg Oxcarbazepine (Oxcarbazepine 150 Mg Tablet) 150 mg PO BID [facility] Last Admin: 12/06/22 09:19 Dose: 150 mg Oxycodone HCl (Oxycodone Hcl Immed Release 5 Mg Tablet) 5 mg PO TID PRN PRN Reason: Pain, Severe (Pain Scale 7-10) Last Admin: 12/06/22 09:44 Dose: 5 mg Prazosin HCl (Prazosin Hcl 1 Mg Capsule) 1 mg PO BEDTIME PATSY; Protocol Last Admin: 12/05/22 20:05 Dose: 1 mg Trazodone HCl (Trazodone Hcl 50 Mg Tablet) 50 mg PO BEDTIME PRN PRN Reason: Insomnia Last Admin: 12/05/22 20:05 Dose: 50 mg Allergies Allergies Allergy/AdvReac Type Severity Reaction Status Date / Time No Known Allergies Allergy Verified 11/13/22 05:49 Assessment & Plan Assessment & Plan (1) MDD (major depressive disorder): Status: Acute Code(s): F32.9 - Major depressive disorder, single episode, unspecified (2) PTSD (post-traumatic stress disorder): Status: Acute Code(s): F43.10 - Post-traumatic stress disorder, unspecified Plan pt is a 32 yo female w/ hx of MDD, PTSD and Charcot Leanna Tooth Disease who presents for worsening depressive symptoms in face of being off medications that were only partially helpful.?Pt reports she has borderline personality disorder. -patient has been on Wellbutrin XL 150mg for 4 years w/out increase in dose; same with Abilify; pt says both together were partially helpful. -hx of panic attacks and nightmares -recently started on Tegretol for body pain related to CMT but sauys it makes her nauseas and maybe more depressed -discussed med regimen; see below Hospital course: 12/04/22 patient remains depressed and anxious however is a little more engage in discussion and with a little brighter affect; pushing herself to engage in groups. Patient reports increased pain from CMT flare. Says oxycodone has worked best in the past and says she only ever needs a few days of it. 12/05/22 pt still depressed, but less intensely so; still quite anxious; agrees to start trileptal (discussed risks/side-effects) 12/06 little better, no nightmare with Pazosin added PLAN: CV q15min checks prazosin 1mg for nightmare add oxycodone for CMT flare will not discharge on opiods (and pt does not want) started Trileptal 150mg BID -will check CBC, lytes, LFTs Continue Wellbutrin XL to 300 mg daily; pt may not need Abilify if Wellbutrin higher Hold off on restarting Abilify for now Add clonidine 0.1 mg p.r.n. 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
[2022-12-06] MEDS: Acetaminophen 325 MG TABLET 975 MG PO (15:27)
[2022-12-06] MEDS: traZODone HCL 50 MG TABLET PO (19:11)
[2022-12-06] MEDS: Prazosin HCL 1 MG CAPSULE PO (19:12)
[2022-12-06 19:21] VITALS: BP 101/51; PULSE 78; TEMP 36.6
[2022-12-07 06:00] VITALS: BP 115/56; PULSE 98; RESP 16; TEMP 36.8; O2SAT 98
[2022-12-07] MEDS: nitrofurantoin macrocrystaL 50 MG CAPSULE PO ×4 (06:10→20:42)
[2022-12-07] MEDS: buPROPion HCl XL 300 MG TAB.ER.24H PO (09:58)
[2022-12-07] MEDS: Gabapentin 400 MG CAPSULE 800 MG PO ×3 (09:58→20:29)
[2022-12-07] MEDS: OXcarbazepine 150 MG TABLET PO ×2 (09:59→20:29)
[2022-12-07] MEDS: cloNIDine HCL 0.1 MG TABLET PO ×2 (09:59→18:56)
--- NOTE | 2022-12-07 11:24 | P.PNPSI_ITS ---
Subjective Subjective Date of Service: 12/07/22 Reason For Visit: Depression with SI Interim History: Feels that she is a little better but says both depression and anxiety remain. Patient would like to go up on buspirone. Today she did not wake up wishing she was not here and agrees this is progress. Denies nightmares -physical pain doing better and was helped by oxycodone; did not take today so far Mental Status Exam Mental Status Exam Narrative: Pt is alert and oriented; behavior is cooperative, calm; patient is not in distress; dressed in casual attire and well groomed; mood is described as a little better and affect congruent, no longer downcast and sometimes smiling; eye contact appropriate; Speech is normal volume, rate, prosody; some psychomotor retardation present; thought process is organized and goal directed; Thought content is on treatment; still with passive wish but less intense; thinking about her children; otherwise pertinent to relevant topics and without any delusional content, paranoid ideations or grandiosity; No passive SI today; no HI. There is no evidence of perceptual disturbance and denies AVH. Patients insight and judgment are impaired but improved and adequate. Diagnostics Vital Signs (24Hr): Vital Signs - 24 hr 12/06/22 19:21 12/07/22 06:00 Temperature 98 F 98.2 F Pulse Rate 78 98 Respiratory Rate 16 Blood Pressure 101/51 L 115/56 L Pulse Oximetry 98 Oxygen Delivery Method Room Air BMI result Body Mass Index 30.9 Labs 12/07/22 11:51 12/07/22 11:51 Medications Medications Current Medications Acetaminophen (Acetaminophen 325 Mg Tablet) 975 mg PO Q6H PRN PRN Reason: Headache/Pain Mild Scale (1-3) Last Admin: 12/06/22 15:27 Dose: 975 mg Al Hydroxide/Mg Hydroxide (Magnesium Hydrox/Alum Hydrox 30 Ml Oral.Susp) 30 ml PO Q6H PRN PRN Reason: Heartburn/Nausea Bupropion HCl (Bupropion Hcl Xl 300 Mg Tab.Er.24h) 300 mg PO DAILY PATSY Last Admin: 12/07/22 09:58 Dose: 300 mg Clonidine HCl (Clonidine Hcl 0.1 Mg Tablet) 0.1 mg PO Q4H PRN; Protocol PRN Reason: anxiety/or groups Last Admin: 12/07/22 09:59 Dose: 0.1 mg Cyclobenzaprine HCl (Cyclobenzaprine Hcl 10 Mg Tablet) 10 mg PO TID PRN PRN Reason: Pain, Mild (Pain Scale 1-3) Last Admin: 12/06/22 09:44 Dose: 10 mg Gabapentin (Gabapentin 400 Mg Capsule) 800 mg PO TID [facility] Last Admin: 12/07/22 09:58 Dose: 800 mg Hydroxyzine HCl (Hydroxyzine Hcl 50 Mg Tablet) 50 mg PO Q6H PRN PRN Reason: Anxiety Magnesium Hydroxide (Milk Of Magnesia 30 Ml Oral.Susp) 30 ml PO DAILY PRN PRN Reason: Constipation Nitrofurantoin Macrocrystals (Nitrofurantoin Macrocrystal 50 Mg Capsule) 50 mg PO Q6H [facility] Stop: 12/09/22 07:00 Last Admin: 12/07/22 06:10 Dose: 50 mg Oxcarbazepine (Oxcarbazepine 150 Mg Tablet) 150 mg PO BID [facility] Last Admin: 12/07/22 09:59 Dose: 150 mg Oxycodone HCl (Oxycodone Hcl Immed Release 5 Mg Tablet) 5 mg PO TID PRN PRN Reason: Pain, Severe (Pain Scale 7-10) Last Admin: 12/06/22 16:13 Dose: 5 mg Prazosin HCl (Prazosin Hcl 1 Mg Capsule) 1 mg PO BEDTIME [facility]; Protocol Last Admin: 12/06/22 19:12 Dose: 1 mg Trazodone HCl (Trazodone Hcl 50 Mg Tablet) 50 mg PO BEDTIME PRN PRN Reason: Insomnia Last Admin: 12/06/22 19:11 Dose: 50 mg Allergies Allergies Allergy/AdvReac Type Severity Reaction Status Date / Time No Known Allergies Allergy Verified 11/13/22 05:49 Assessment & Plan Assessment & Plan (1) MDD (major depressive disorder): Status: Acute Code(s): F32.9 - Major depressive disorder, single episode, unspecified (2) PTSD (post-traumatic stress disorder): Status: Acute Code(s): F43.10 - Post-traumatic stress disorder, unspecified Plan pt is a 32 yo female w/ hx of MDD, PTSD and Charcot Leanna Tooth Disease who presents for worsening depressive symptoms in face of being off medications that were only partially helpful.?Pt reports she has borderline personality disorder. -patient has been on Wellbutrin XL 150mg for 4 years w/out increase in dose; same with Abilify; pt says both together were partially helpful. -hx of panic attacks and nightmares -recently started on Tegretol for body pain related to CMT but sauys it makes her nauseas and maybe more depressed -discussed med regimen; see below Hospital course: 12/04/22 patient remains depressed and anxious however is a little more engage in discussion and with a little brighter affect; pushing herself to engage in groups. Patient reports increased pain from CMT flare. Says oxycodone has worked best in the past and says she only ever needs a few days of it. 12/05/22 pt still depressed, but less intensely so; still quite anxious; agrees to start trileptal (discussed risks/side-effects) 12/06 little better, no nightmare with Pazosin added 12/07 remains with depression anxiety and would like have Wellbutrin increased. No SI and no passive wish however which is progress. PLAN: CV q15min checks prazosin 1mg for nightmare add oxycodone for CMT flare will not discharge on opiods (and pt does not want) started Trileptal 150mg BID -will check CBC, lytes, LFTs Continue Wellbutrin XL to 300 mg daily; pt may not need Abilify if Wellbutrin higher Hold off on restarting Abilify for now Add clonidine 0.1 mg p.r.n. 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
[2022-12-07 12:00] LABS: Basophils Percent Auto 0.9 % (0-2); Eosinophils Absolute Auto 0.2 X10*3/uL (0.0-0.4); Eosinophils Percent Auto 4.5 % (0-4); Hematocrit 32.8 % (37.0-47.0); Hemoglobin 10.8 g/dl (12.0-16.0); Imm Gran Abs Auto 0.05 X10*3/uL (0.00-0.03); Imm Gran Pct Auto 1.1 % (0.0-0.4); Lymphocytes Absolute Auto 1.4 X10*3/uL (1.2-4.9); Lymphocytes Percent Auto 29.9 % (20-40); Mean Corpuscular HGB Conc 32.9 g/dl (31.0-35.0); Mean Corpuscular Hemoglobin 30.2 pg (27.0-33.0); Mean Corpuscular Volume 91.6 fL (80.0-98.0); Mean Platelet Volume 10.9 fL (9.4-12.3); Monocytes Absolute Auto 0.5 X10*3/uL (0.1-1.2); Monocytes Percent Auto 10.2 % (2-11); Neutrophils Absolute Auto 2.5 x10*3/uL (2.0-8.3); Neutrophils Percent Auto 53.4 % (45-73); PLT CLUMP 1; Red Blood Count 3.58 X10*6/uL (4.20-5.50); Red Cell Distribution Width 12.2 % (11.0-16.0); SCAN SMEAR FLAG 1
[2022-12-07 12:01] LABS: White Blood Count 4.6 X10*3/uL (4.8-10.8)
[2022-12-07 12:07] LABS: MANUAL DIFF FLAG NO
[2022-12-07 12:20] LABS: Alanine Aminotransferase 10 U/L (0-31); Albumin Level 3.2 g/dL (3.5-5.0); Alkaline Phosphatase 56 U/L (39-117); Anion Gap 13 (12-20); Aspartate Amino Transferase 13 U/L (5-31); Bilirubin Total 0.3 mg/dL (0.0-1.0); Blood Urea Nitrogen 14 mg/dL (9-16); Calcium 8.4 mg/dL (8.4-10.2); Carbon Dioxide 24 mmol/L (22-29); Chloride 106 mmol/L (96-108); Creatinine Clr Calc Pharmacy 117.6; Estimated Glomerular Filt Rate > 60; Glucose Random 150 mg/dL (60-115); Potassium 4.3 mmol/L (3.3-5.1); Sodium 139 mmol/L (135-145); Total Protein 5.7 g/dL (6.5-8.0)
[2022-12-07] MEDS: oxyCODONE HCl Immed Release 5 MG TABLET PO ×3 (12:48→22:33)
[2022-12-07] MEDS: Acetaminophen 325 MG TABLET 975 MG PO (12:48)
[2022-12-07] MEDS: hydrOXYzine HCL 50 MG TABLET PO ×2 (14:40→22:34)
[2022-12-07] MEDS: Cyclobenzaprine HCl 10 MG TABLET PO (16:38)
[2022-12-07 18:46] VITALS: BP 113/62; PULSE 101; RESP 16; TEMP 36.9; O2SAT 95
[2022-12-07] MEDS: Prazosin HCL 1 MG CAPSULE PO (20:29)
[2022-12-08] MEDS: traZODone HCL 50 MG TABLET PO (00:48)
[2022-12-08] MEDS: cloNIDine HCL 0.1 MG TABLET PO (04:00)
[2022-12-08] MEDS: nitrofurantoin macrocrystaL 50 MG CAPSULE PO ×4 (04:00→20:27)
[2022-12-08] MEDS: Cyclobenzaprine HCl 10 MG TABLET PO ×2 (04:00→17:04)
[2022-12-08] MEDS: hydrOXYzine HCL 50 MG TABLET PO ×2 (04:00→14:13)
[2022-12-08 06:00] VITALS: BP 74/44; PULSE 72; RESP 18; O2SAT 98
[2022-12-08] MEDS: Gabapentin 400 MG CAPSULE 800 MG PO ×3 (08:32→20:27)
[2022-12-08] MEDS: buPROPion HCl XL 150 MG TAB.ER.24H 450 MG PO (08:32)
[2022-12-08] MEDS: OXcarbazepine 150 MG TABLET PO (08:32)
[2022-12-08] MEDS: Milk of Magnesia 30 ML ORAL.SUSP PO (11:10)
[2022-12-08 11:17] VITALS: BP 103/58; PULSE 85; RESP 18
--- NOTE | 2022-12-08 13:17 | P.PNPSI_ITS ---
Subjective Subjective Date of Service: 12/08/22 Reason For Visit: Depression with SI Interim History: Patient reports much anxiety and says she would like to just go back on Abilify but would like to try 10 mg. Turkey Egg Gatherer expresses concern that perhaps increased Wellbutrin is causing anxiety and bilateral hand tremor. Discussing whether not to lower dose and see if some of her anxieties medication side effect. Patient remains depressed with intermittent passive wish but no plans or intention. Mental Status Exam Mental Status Exam Narrative: Pt is alert and oriented; behavior is cooperative, calm; patient is not in distress; dressed in casual attire and well groomed; mood is described as anxious and affect congruent; eye contact appropriate; Speech is normal volume, rate, prosody; some psychomotor retardation present; thought process is organized and goal directed; Thought content is on treatment; still with intermittent passive wish but less intense; thinking about her children; otherwise pertinent to relevant topics and without any delusional content, paranoid ideations or grandiosity; passive intermittent SI; no HI. There is no evidence of perceptual disturbance and denies AVH. Patients insight and judgment are impaired but improved and adequate. Diagnostics Vital Signs (24Hr): Vital Signs - 24 hr 12/07/22 18:46 12/08/22 06:00 12/08/22 11:17 Temperature 98.5 F Pulse Rate 101 H 72 85 Respiratory Rate 16 18 18 Blood Pressure 113/62 74/44 L 103/58 L Pulse Oximetry 95 98 Oxygen Delivery Method Room Air Room Air Room Air BMI result Body Mass Index 30.9 Labs 12/07/22 11:51 12/07/22 11:51 Labs: Laboratory Results - last 48 hr 12/07/22 12/07/22 11:51 11:51 WBC 4.6 L RBC 3.58 L Hgb 10.8 L Hct 32.8 L MCV 91.6 MCH 30.2 MCHC 32.9 RDW 12.2 Plt Count TNP MPV 10.9 Immature Gran % (Auto) 1.1 H Neut % (Auto) 53.4 Lymph % (Auto) 29.9 [place] % (Auto) 10.2 Eos % (Auto) 4.5 H Baso % (Auto) 0.9 Lymph # (Auto) 1.4 [place] # (Auto) 0.5 Eos # (Auto) 0.2 Baso # (Auto) 0.0 Abs Immat Gran (auto) 0.05 H Absolute Neuts (auto) 2.5 Absolute Nucleated RBC 0.000 Nucleated RBC % (auto) 0.0 Sodium 139 Potassium 4.3 Chloride 106 Carbon Dioxide 24 Anion Gap 13 BUN 14 Creatinine 0.71 Estim Creat Clear Calc 117.6 Estimated GFR > 60 Random Glucose 150 H Calcium 8.4 Total Bilirubin 0.3 AST 13 ALT 10 Alkaline Phosphatase 56 Total Protein 5.7 L Albumin 3.2 L Medications Medications Current Medications Acetaminophen (Acetaminophen 325 Mg Tablet) 975 mg PO Q6H PRN PRN Reason: Headache/Pain Mild Scale (1-3) Last Admin: 12/07/22 12:48 Dose: 975 mg Al Hydroxide/Mg Hydroxide (Magnesium Hydrox/Alum Hydrox 30 Ml Oral.Susp) 30 ml PO Q6H PRN PRN Reason: Heartburn/Nausea Bupropion HCl (Bupropion Hcl Xl 150 Mg Tab.Er.24h) 450 mg PO DAILY [facility] Last Admin: 12/08/22 08:32 Dose: 450 mg Clonidine HCl (Clonidine Hcl 0.1 Mg Tablet) 0.1 mg PO Q4H PRN; Protocol PRN Reason: anxiety/or groups Last Admin: 12/08/22 04:00 Dose: 0.1 mg Cyclobenzaprine HCl (Cyclobenzaprine Hcl 10 Mg Tablet) 10 mg PO TID PRN PRN Reason: Pain, Mild (Pain Scale 1-3) Last Admin: 12/08/22 04:00 Dose: 10 mg Gabapentin (Gabapentin 400 Mg Capsule) 800 mg PO TID [facility] Last Admin: 12/08/22 08:32 Dose: 800 mg Hydroxyzine HCl (Hydroxyzine Hcl 50 Mg Tablet) 50 mg PO Q6H PRN PRN Reason: Anxiety Last Admin: 12/08/22 04:00 Dose: 50 mg Magnesium Hydroxide (Milk Of Magnesia 30 Ml Oral.Susp) 30 ml PO DAILY PRN PRN Reason: Constipation Last Admin: 12/08/22 11:10 Dose: 30 ml Nitrofurantoin Macrocrystals (Nitrofurantoin Macrocrystal 50 Mg Capsule) 50 mg PO Q6H [facility] Stop: 12/09/22 07:00 Last Admin: 12/08/22 11:10 Dose: 50 mg Oxcarbazepine (Oxcarbazepine 150 Mg Tablet) 150 mg PO BID [facility] Last Admin: 12/08/22 08:32 Dose: 150 mg Oxycodone HCl (Oxycodone Hcl Immed Release 5 Mg Tablet) 5 mg PO TID PRN PRN Reason: Pain, Severe (Pain Scale 7-10) Last Admin: 12/07/22 22:33 Dose: 5 mg Prazosin HCl (Prazosin Hcl 1 Mg Capsule) 1 mg PO BEDTIME PATSY; Protocol Last Admin: 12/07/22 20:29 Dose: 1 mg Trazodone HCl (Trazodone Hcl 50 Mg Tablet) 50 mg PO BEDTIME PRN PRN Reason: Insomnia Last Admin: 12/08/22 00:48 Dose: 50 mg Allergies Allergies Allergy/AdvReac Type Severity Reaction Status Date / Time No Known Allergies Allergy Verified 11/13/22 05:49 Assessment & Plan Assessment & Plan (1) MDD (major depressive disorder): Status: Acute Code(s): F32.9 - Major depressive disorder, single episode, unspecified (2) PTSD (post-traumatic stress disorder): Status: Acute Code(s): F43.10 - Post-traumatic stress disorder, unspecified Plan pt is a 32 yo female w/ hx of MDD, PTSD and Charcot Leanna Tooth Disease who presents for worsening depressive symptoms in face of being off medications that were only partially helpful.?Pt reports she has borderline personality disorder. -patient has been on Wellbutrin XL 150mg for 4 years w/out increase in dose; same with Abilify; pt says both together were partially helpful. -hx of panic attacks and nightmares -recently started on Tegretol for body pain related to CMT but sauys it makes her nauseas and maybe more depressed -discussed med regimen; see below Hospital course: 12/04/22 patient remains depressed and anxious however is a little more engage in discussion and with a little brighter affect; pushing herself to engage in groups. Patient reports increased pain from CMT flare. Says oxycodone has worked best in the past and says she only ever needs a few days of it. 12/05/22 pt still depressed, but less intensely so; still quite anxious; agrees to start trileptal (discussed risks/side-effects) 12/06 little better, no nightmare with Pazosin added 12/07 remains with depression anxiety and would like have Wellbutrin increased. No SI and no passive wish however which is progress. 12/08 patient would like to get back on Abilify PLAN: CV q15min checks Restart Abilify 10 mg q.h.s. prazosin 1mg for nightmare add oxycodone for CMT flare will not discharge on opiods (and pt does not want) DC Trileptal -will check CBC, lytes, LFTs Continue Wellbutrin XL to 300 mg daily; may need to DC Add clonidine 0.1 mg p.r.n. 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
[2022-12-08] MEDS: oxyCODONE HCl Immed Release 5 MG TABLET PO ×2 (17:04→20:27)
[2022-12-08] MEDS: LORazepam 0.5 MG TABLET PO (17:53)
[2022-12-08] MEDS: Prazosin HCL 1 MG CAPSULE PO (20:27)
[2022-12-08] MEDS: ARIPiprazole 5 MG TABLET PO (20:27)
[2022-12-08 22:09] VITALS: BP 117/85; PULSE 80
[2022-12-09] MEDS: nitrofurantoin macrocrystaL 50 MG CAPSULE PO (06:21)
[2022-12-09 08:30] VITALS: BP 102/52; PULSE 81; RESP 16; TEMP 36.7; O2SAT 98
[2022-12-09] MEDS: Cyclobenzaprine HCl 10 MG TABLET PO ×2 (09:08→19:50)
[2022-12-09] MEDS: buPROPion HCl XL 150 MG TAB.ER.24H 450 MG PO (09:08)
[2022-12-09] MEDS: Gabapentin 400 MG CAPSULE 800 MG PO ×3 (09:08→19:49)
[2022-12-09] MEDS: hydrOXYzine HCL 50 MG TABLET PO (09:09)
[2022-12-09] MEDS: Acetaminophen 325 MG TABLET 975 MG PO (11:46)
[2022-12-09 13:27] VITALS: BP 120/54
[2022-12-09] MEDS: cloNIDine HCL 0.1 MG TABLET PO (14:22)
[2022-12-09] MEDS: busPIRone HCl 10 MG TABLET PO ×3 (16:57→20:24)
[2022-12-09 17:07] VITALS: BP 108/63; PULSE 111; RESP 16; TEMP 36.6; O2SAT 99
--- NOTE | 2022-12-09 17:38 | HO.PSYCHPN ---
Subjective Subjective Date of Service: 12/09/22 Reason For Visit: Depression with SI Interim History: Patient emotionally distraught, tearful; feels very anxious and shows bilateral hand tremors. Agrees to reduce Wellbutrin back to 150 mg. Also wants help with anxiety since clonidine is not available given lower blood pressures. Patient agrees to trial of both BuSpar and low-dose Seroquel. Patient and auto service writer discussed her feelings and love for her children. She feels like a bad mother but was able to realize this is just depression talking and she was able to see the sacrifice and hardship she is in toward for them. Mental Status Exam Mental Status Exam Narrative: Pt is alert and oriented; behavior is cooperative, teaful; patient in emotional distress; dressed in casual attire and well groomed; mood is described as anxious and affect congruent, tearful; eye contact appropriate; Speech is normal volume, rate, prosody; some psychomotor retardation present; thought process is organized and goal directed; Thought content is on treatment; still with intermittent passive wish but less intense; thinking about her children; otherwise pertinent to relevant topics and without any delusional content, paranoid ideations or grandiosity; passive intermittent SI; no HI. There is no evidence of perceptual disturbance and denies AVH. Patients insight and judgment are impaired but improved and adequate. Diagnostics Vital Signs (24Hr): Vital Signs - 24 hr 12/08/22 22:09 12/09/22 08:30 12/09/22 13:27 Temperature 98.1 F Pulse Rate 80 81 Respiratory Rate 16 Blood Pressure 117/85 102/52 L 120/54 L Pulse Oximetry 98 Oxygen Delivery Method Room Air 12/09/22 17:07 Temperature 97.9 F Pulse Rate 111 H Respiratory Rate 16 Blood Pressure 108/63 Pulse Oximetry 99 Oxygen Delivery Method Room Air BMI result Body Mass Index 30.9 Labs 12/07/22 11:51 12/07/22 11:51 Medications Medications Current Medications Acetaminophen (Acetaminophen 325 Mg Tablet) 975 mg PO Q6H PRN PRN Reason: Headache/Pain Mild Scale (1-3) Last Admin: 12/09/22 11:46 Dose: 975 mg Al Hydroxide/Mg Hydroxide (Magnesium Hydrox/Alum Hydrox 30 Ml Oral.Susp) 30 ml PO Q6H PRN PRN Reason: Heartburn/Nausea Aripiprazole (Aripiprazole 5 Mg Tablet) 5 mg PO BEDTIME PATSY Aripiprazole (Aripiprazole 10 Mg Tablet) 10 mg PO BEDTIME PATSY Stop: 12/09/22 23:00 Bupropion HCl (Bupropion Hcl Xl 150 Mg Tab.Er.24h) 150 mg PO DAILY [facility] Buspirone HCl (Buspirone Hcl 10 Mg Tablet) 10 mg PO TID PRN PRN Reason: anxiety Last Admin: 12/09/22 16:57 Dose: 10 mg Clonidine HCl (Clonidine Hcl 0.1 Mg Tablet) 0.1 mg PO Q4H PRN; Protocol PRN Reason: anxiety/or groups Last Admin: 12/09/22 14:22 Dose: 0.1 mg Cyclobenzaprine HCl (Cyclobenzaprine Hcl 10 Mg Tablet) 10 mg PO TID PRN PRN Reason: Pain, Mild (Pain Scale 1-3) Last Admin: 12/09/22 09:08 Dose: 10 mg Gabapentin (Gabapentin 400 Mg Capsule) 800 mg PO TID [facility] Last Admin: 12/09/22 14:22 Dose: 800 mg Hydroxyzine HCl (Hydroxyzine Hcl 50 Mg Tablet) 50 mg PO Q6H PRN PRN Reason: Anxiety Last Admin: 12/09/22 09:09 Dose: 50 mg Magnesium Hydroxide (Milk Of Magnesia 30 Ml Oral.Susp) 30 ml PO DAILY PRN PRN Reason: Constipation Last Admin: 12/08/22 11:10 Dose: 30 ml Prazosin HCl (Prazosin Hcl 1 Mg Capsule) 1 mg PO BEDTIME PATSY; Protocol Last Admin: 12/08/22 20:27 Dose: 1 mg Quetiapine Fumarate (Quetiapine Fumarate 25 Mg Tablet) 25 mg PO QID PRN PRN Reason: anxiety Sodium Biphosphate/Sodium Phosphate (Sodium Phosphate,[place]-Dibasic 133 Ml Enema) 133 ml [place] ONCE PRN PRN Reason: Constipation Trazodone HCl (Trazodone Hcl 50 Mg Tablet) 50 mg PO BEDTIME PRN PRN Reason: Insomnia Last Admin: 12/08/22 00:48 Dose: 50 mg Allergies Allergies Allergy/AdvReac Type Severity Reaction Status Date / Time No Known Allergies Allergy Verified 11/13/22 05:49 Assessment & Plan Assessment & Plan (1) MDD (major depressive disorder): Status: Acute Code(s): F32.9 - Major depressive disorder, single episode, unspecified (2) PTSD (post-traumatic stress disorder): Status: Acute Code(s): F43.10 - Post-traumatic stress disorder, unspecified Plan pt is a 32 yo female w/ hx of MDD, PTSD and Charcot Leanna Tooth Disease who presents for worsening depressive symptoms in face of being off medications that were only partially helpful.?Pt reports she has borderline personality disorder. -patient has been on Wellbutrin XL 150mg for 4 years w/out increase in dose; same with Abilify; pt says both together were partially helpful. -hx of panic attacks and nightmares -recently started on Tegretol for body pain related to CMT but sauys it makes her nauseas and maybe more depressed -discussed med regimen; see below Hospital course: 12/04/22 patient remains depressed and anxious however is a little more engage in discussion and with a little brighter affect; pushing herself to engage in groups. Patient reports increased pain from CMT flare. Says oxycodone has worked best in the past and says she only ever needs a few days of it. 12/05/22 pt still depressed, but less intensely so; still quite anxious; agrees to start trileptal (discussed risks/side-effects) 12/06 little better, no nightmare with Pazosin added 12/07 remains with depression anxiety and would like have Wellbutrin increased. No SI and no passive wish however which is progress. 12/09 patient very sad and anxious feeling very badly about herself. Agrees possible Wellbutrin side effect causing tremor and exacerbated anxiety PLAN: CV q15min checks prazosin 1mg for nightmare Restarted Abilify at 10 mg q.h.s. BuSpar 10 mg p.r.n. Seroquel 25 mg p.r.n. DC oxycodone DC Trileptal -will check CBC, lytes, LFTs Lower to Wellbutrin XL to 150 mg daily; concern for medication side effect Add clonidine 0.1 mg p.r.n. 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
[2022-12-09] MEDS: Prazosin HCL 1 MG CAPSULE PO (19:49)
[2022-12-09] MEDS: ARIPiprazole 10 MG TABLET PO (19:49)
[2022-12-10] MEDS: traZODone HCL 50 MG TABLET PO ×2 (03:44→22:04)
[2022-12-10] MEDS: hydrOXYzine HCL 50 MG TABLET PO ×2 (05:27→11:49)
[2022-12-10 09:20] VITALS: BP 103/58; PULSE 74; RESP 16; TEMP 37; O2SAT 97
[2022-12-10] MEDS: busPIRone HCl 10 MG TABLET PO ×3 (09:22→18:16)
[2022-12-10] MEDS: Gabapentin 400 MG CAPSULE 800 MG PO ×3 (09:22→21:16)
[2022-12-10] MEDS: Cyclobenzaprine HCl 10 MG TABLET PO (09:22)
[2022-12-10] MEDS: buPROPion HCl XL 150 MG TAB.ER.24H PO (09:22)
[2022-12-10] MEDS: QUEtiapine Fumarate 25 MG TABLET PO (14:07)
[2022-12-10 18:00] VITALS: BP 121/64; PULSE 86; TEMP 36.6; O2SAT 100
--- NOTE | 2022-12-10 18:39 | HO.PSYCHPN ---
Subjective Subjective Date of Service: 12/10/22 Reason For Visit: Depression with SI Interim History: Patient says tremor is down with lower dose of Wellbutrin making it increasingly likely cause; anxiety also little less. Housekeeping Aide examined hands and agrees the tremor is nearly resolved. Patient thought BuSpar was helpful and would like it scheduled. Still depressed, still with passive intermittent SI. She is worried about leaving to soon could she does not feel stabilized and worries for worsening depression that brought her in. She also asks if there is a partial day program she could attend post discharge. Patient shared that she also has struggles with constant almost racing thoughts, having incessant conversations with people, some that she knows, sometimes reviewing conversations that happened the day but other times just having a conversation with made up, imaginary people she does not know. This mostly happens at night but can happen during the day also. She denies any auditory hallucinations. Mental Status Exam Mental Status Exam Narrative: Pt is alert and oriented; behavior is cooperative, more calm; dressed in casual attire and well groomed; mood is described as anxious...but less and affect congruent, more calm; eye contact appropriate; Speech is normal volume, rate, prosody; some psychomotor retardation present; thought process is organized and goal directed; Thought content is on treatment; still with intermittent passive wish but less intense; thinking about her children; otherwise pertinent to relevant topics and without any delusional content, paranoid ideations or grandiosity; passive intermittent SI; no HI. There is no evidence of perceptual disturbance and denies AVH. Patients insight and judgment are impaired but improved and adequate. Diagnostics Vital Signs (24Hr): Vital Signs - 24 hr 12/10/22 09:20 Temperature 98.6 F Pulse Rate 74 Respiratory Rate 16 Blood Pressure 103/58 L Pulse Oximetry 97 Oxygen Delivery Method Room Air BMI result Body Mass Index 30.9 Labs 12/07/22 11:51 12/07/22 11:51 Medications Medications Current Medications Acetaminophen (Acetaminophen 325 Mg Tablet) 975 mg PO Q6H PRN PRN Reason: Headache/Pain Mild Scale (1-3) Last Admin: 12/09/22 11:46 Dose: 975 mg Al Hydroxide/Mg Hydroxide (Magnesium Hydrox/Alum Hydrox 30 Ml Oral.Susp) 30 ml PO Q6H PRN PRN Reason: Heartburn/Nausea Aripiprazole (Aripiprazole 10 Mg Tablet) 10 mg PO BEDTIME PATSY Bupropion HCl (Bupropion Hcl Xl 150 Mg Tab.Er.24h) 150 mg PO DAILY PATSY Last Admin: 12/10/22 09:22 Dose: 150 mg Buspirone HCl (Buspirone Hcl 10 Mg Tablet) 10 mg PO TID PRN PRN Reason: anxiety Last Admin: 12/10/22 18:16 Dose: 10 mg Buspirone HCl (Buspirone Hcl 5 Mg Tablet) 5 mg PO TID PATSY Last Admin: 12/10/22 18:15 Dose: Not Given Clonidine HCl (Clonidine Hcl 0.1 Mg Tablet) 0.1 mg PO Q4H PRN; Protocol PRN Reason: anxiety/or groups Last Admin: 12/09/22 14:22 Dose: 0.1 mg Cyclobenzaprine HCl (Cyclobenzaprine Hcl 10 Mg Tablet) 10 mg PO TID PRN PRN Reason: Pain, Mild (Pain Scale 1-3) Last Admin: 12/10/22 09:22 Dose: 10 mg Gabapentin (Gabapentin 400 Mg Capsule) 800 mg PO TID PATSY Last Admin: 12/10/22 14:07 Dose: 800 mg Hydroxyzine HCl (Hydroxyzine Hcl 50 Mg Tablet) 50 mg PO Q6H PRN PRN Reason: Anxiety Last Admin: 12/10/22 11:49 Dose: 50 mg Magnesium Hydroxide (Milk Of Magnesia 30 Ml Oral.Susp) 30 ml PO DAILY PRN PRN Reason: Constipation Last Admin: 12/08/22 11:10 Dose: 30 ml Prazosin HCl (Prazosin Hcl 1 Mg Capsule) 1 mg PO BEDTIME PATSY; Protocol Last Admin: 12/09/22 19:49 Dose: 1 mg Quetiapine Fumarate (Quetiapine Fumarate 25 Mg Tablet) 25 mg PO QID PRN PRN Reason: anxiety Last Admin: 12/10/22 14:07 Dose: 25 mg Sodium Biphosphate/Sodium Phosphate (Sodium Phosphate,[place]-Dibasic 133 Ml Enema) 133 ml [place] ONCE PRN PRN Reason: Constipation Trazodone HCl (Trazodone Hcl 50 Mg Tablet) 50 mg PO BEDTIME PRN PRN Reason: Insomnia Last Admin: 12/10/22 03:44 Dose: 50 mg Allergies Allergies Allergy/AdvReac Type Severity Reaction Status Date / Time No Known Allergies Allergy Verified 11/13/22 05:49 Assessment & Plan Assessment & Plan (1) MDD (major depressive disorder): Status: Acute Code(s): F32.9 - Major depressive disorder, single episode, unspecified (2) PTSD (post-traumatic stress disorder): Status: Acute Code(s): F43.10 - Post-traumatic stress disorder, unspecified Plan pt is a 32 yo female w/ hx of MDD, PTSD and Charcot Leanna Tooth Disease who presents for worsening depressive symptoms in face of being off medications that were only partially helpful.?Pt reports she has borderline personality disorder. -patient has been on Wellbutrin XL 150mg for 4 years w/out increase in dose; same with Abilify; pt says both together were partially helpful. -hx of panic attacks and nightmares -recently started on Tegretol for body pain related to CMT but sauys it makes her nauseas and maybe more depressed -discussed med regimen; see below Hospital course: 12/04/22 patient remains depressed and anxious however is a little more engage in discussion and with a little brighter affect; pushing herself to engage in groups. Patient reports increased pain from CMT flare. Says oxycodone has worked best in the past and says she only ever needs a few days of it. 12/05/22 pt still depressed, but less intensely so; still quite anxious; agrees to start trileptal (discussed risks/side-effects) 12/06 little better, no nightmare with Pazosin added 12/07 remains with depression anxiety and would like have Wellbutrin increased. No SI and no passive wish however which is progress. 12/09 patient very sad and anxious feeling very badly about herself. Agrees possible Wellbutrin side effect causing tremor and exacerbated anxiety 12/10 patient feeling a little better with Wellbutrin lowered back to 150; finds BuSpar helpful for lowering anxiety and agrees to have it scheduled. Given that Wellbutrin is now lowered, will have to see if depression worsens PLAN: CV q15min checks Wellbutrin XL 150 mg; does not seem to tolerate higher dose prazosin 1mg for nightmare Continue Abilify at 10 mg q.h.s. START BuSpar 10 mg t.i.d. Also BuSpar 10 mg t.i.d. p.r.n. for anxiety Seroquel 25 mg p.r.n. 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
[2022-12-10] MEDS: busPIRone HCl 5 MG TABLET PO (21:16)
[2022-12-10] MEDS: Prazosin HCL 1 MG CAPSULE PO (21:16)
[2022-12-10] MEDS: ARIPiprazole 10 MG TABLET PO (21:16)
[2022-12-11 08:30] VITALS: BP 93/46; PULSE 84; RESP 16; TEMP 36.2; O2SAT 97
[2022-12-11] MEDS: Gabapentin 400 MG CAPSULE 800 MG PO ×3 (09:06→21:06)
[2022-12-11] MEDS: busPIRone HCl 5 MG TABLET PO (09:06)
[2022-12-11] MEDS: Cyclobenzaprine HCl 10 MG TABLET PO (09:07)
[2022-12-11] MEDS: buPROPion HCl XL 150 MG TAB.ER.24H PO (09:07)
[2022-12-11 09:35] VITALS: BMI 29.9
[2022-12-11] MEDS: busPIRone HCl 10 MG TABLET PO ×5 (09:53→23:55)
--- NOTE | 2022-12-11 10:38 | P.PNPSI_ITS ---
Subjective Subjective Date of Service: 12/11/22 Reason For Visit: Depression with SI Interim History: Still no tremor and greeting card writer and patient conclude it was most likely due to increased Wellbutrin. Patient is having a lot of dreams that do wake her up however no nightmares. Patient feels BuSpar is significantly helping and likes the ability to have a p.r.n. as well as schedule dose. Patient complains of yeast infection and fluconazole ordered. Patient remains depressed but agrees she is definitely better than when she 1st came in. She does continue to worry about continued stability and greeting card writer agrees she should remain for few more days to further demonstrate improvement Mental Status Exam Mental Status Exam Narrative: Pt is alert and oriented; behavior is cooperative, more calm; dressed in casual attire and well groomed; mood is described as little better and affect con gruent, more calm; eye contact appropriate; Speech is normal volume, rate, prosody; some psychomotor retardation present; thought process is organized and goal directed; Thought content is on treatment; still with intermittent passive wish but less intense; thinking about her children; otherwise pertinent to relevant topics and without any delusional content, paranoid ideations or grandiosity; passive intermittent SI; no HI. There is no evidence of perceptual disturbance and denies AVH. Patients insight and judgment are impaired but improved and adequate. Diagnostics Vital Signs (24Hr): Vital Signs - 24 hr 12/10/22 18:00 12/11/22 08:30 Temperature 97.8 F 97.2 F Pulse Rate 86 84 Respiratory Rate 16 Blood Pressure 121/64 93/46 L Pulse Oximetry 100 97 Oxygen Delivery Method Room Air Room Air BMI result Body Mass Index 29.9 Labs 12/07/22 11:51 12/07/22 11:51 Medications Medications Current Medications Acetaminophen (Acetaminophen 325 Mg Tablet) 975 mg PO Q6H PRN PRN Reason: Headache/Pain Mild Scale (1-3) Last Admin: 12/09/22 11:46 Dose: 975 mg Al Hydroxide/Mg Hydroxide (Magnesium Hydrox/Alum Hydrox 30 Ml Oral.Susp) 30 ml PO Q6H PRN PRN Reason: Heartburn/Nausea Aripiprazole (Aripiprazole 10 Mg Tablet) 10 mg PO BEDTIME PATSY Last Admin: 12/10/22 21:16 Dose: 10 mg Bupropion HCl (Bupropion Hcl Xl 150 Mg Tab.Er.24h) 150 mg PO DAILY PATSY Last Admin: 12/11/22 09:07 Dose: 150 mg Buspirone HCl (Buspirone Hcl 10 Mg Tablet) 10 mg PO TID PRN PRN Reason: anxiety Last Admin: 12/11/22 09:53 Dose: 10 mg Buspirone HCl (Buspirone Hcl 10 Mg Tablet) 10 mg PO TID PATSY Cyclobenzaprine HCl (Cyclobenzaprine Hcl 10 Mg Tablet) 10 mg PO TID PRN PRN Reason: Pain, Mild (Pain Scale 1-3) Last Admin: 12/11/22 09:07 Dose: 10 mg Gabapentin (Gabapentin 400 Mg Capsule) 800 mg PO TID PATSY Last Admin: 12/11/22 09:06 Dose: 800 mg Hydroxyzine HCl (Hydroxyzine Hcl 50 Mg Tablet) 50 mg PO Q6H PRN PRN Reason: Anxiety Last Admin: 12/10/22 11:49 Dose: 50 mg Magnesium Hydroxide (Milk Of Magnesia 30 Ml Oral.Susp) 30 ml PO DAILY PRN PRN Reason: Constipation Last Admin: 12/08/22 11:10 Dose: 30 ml Prazosin HCl (Prazosin Hcl 1 Mg Capsule) 1 mg PO BEDTIME PATSY; Protocol Last Admin: 12/10/22 21:16 Dose: 1 mg Quetiapine Fumarate (Quetiapine Fumarate 25 Mg Tablet) 25 mg PO QID PRN PRN Reason: anxiety Last Admin: 12/10/22 14:07 Dose: 25 mg Sodium Biphosphate/Sodium Phosphate (Sodium Phosphate,[place]-Dibasic 133 Ml Enema) 133 ml [place] ONCE PRN PRN Reason: Constipation Trazodone HCl (Trazodone Hcl 50 Mg Tablet) 50 mg PO BEDTIME PRN PRN Reason: Insomnia Last Admin: 12/10/22 22:04 Dose: 50 mg Allergies Allergies Allergy/AdvReac Type Severity Reaction Status Date / Time No Known Allergies Allergy Verified 11/13/22 05:49 Assessment & Plan Assessment & Plan (1) MDD (major depressive disorder): Status: Acute Code(s): F32.9 - Major depressive disorder, single episode, unspecified (2) PTSD (post-traumatic stress disorder): Status: Acute Code(s): F43.10 - Post-traumatic stress disorder, unspecified Plan pt is a 32 yo female w/ hx of MDD, PTSD and Charcot Leanna Tooth Disease who presents for worsening depressive symptoms in face of being off medications that were only partially helpful.?Pt reports she has borderline personality disorder. -patient has been on Wellbutrin XL 150mg for 4 years w/out increase in dose; susie guzman with Abilify; pt says both together were partially helpful. -hx of panic attacks and nightmares -recently started on Tegretol for body pain related to CMT but sauys it makes her nauseas and maybe more depressed -discussed med regimen; see below Hospital course: 12/04/22 patient remains depressed and anxious however is a little more engage in discussion and with a little brighter affect; pushing herself to engage in groups. Patient reports increased pain from CMT flare. Says oxycodone has wor ked best in the past and says she only ever needs a few days of it. 12/05/22 pt still depressed, but less intensely so; still quite anxious; agrees to start trileptal (discussed risks/side-effects) 12/06 little better, no nightmare with Pazosin added 12/07 remains with depression anxiety and would like have Wellbutrin increased. No SI and no passive wish however which is progress. 12/09 patient very sad and anxious feeling very badly about herself. Agrees possible Wellbutrin side effect causing tremor and exacerbated anxiety 12/10 patient feeling a little better with Wellbutrin lowered back to 150; finds BuSpar helpful for lowering anxiety and agrees to have it scheduled. Given that Wellbutrin is now lowered, will have to see if depression worsens PLAN: CV q15min checks Wellbutrin XL 150 mg; does not seem to tolerate higher dose prazosin 1mg for nightmare Continue Abilify at 10 mg q.h.s. START BuSpar 10 mg t.i.d. Also BuSpar 10 mg t.i.d. p.r.n. for anxiety Seroquel 25 mg p.r.n. 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
[2022-12-11] MEDS: Fluconazole 150 MG TABLET PO (14:05)
[2022-12-11 18:00] VITALS: BP 128/60; PULSE 90; RESP 18
[2022-12-11] MEDS: ARIPiprazole 10 MG TABLET PO (21:06)
[2022-12-11] MEDS: Prazosin HCL 1 MG CAPSULE PO (21:06)
[2022-12-11] MEDS: traZODone HCL 50 MG TABLET PO (23:55)
[2022-12-12 06:00] VITALS: BP 115/58; PULSE 85; RESP 14; TEMP 36.4; O2SAT 97
[2022-12-12] MEDS: busPIRone HCl 10 MG TABLET PO ×6 (08:26→21:32)
[2022-12-12] MEDS: buPROPion HCl XL 150 MG TAB.ER.24H PO (08:26)
[2022-12-12] MEDS: Gabapentin 400 MG CAPSULE 800 MG PO ×3 (08:26→21:31)
--- NOTE | 2022-12-12 10:34 | HO.PSYCHPN ---
Subjective Subjective Date of Service: 12/12/22 Reason For Visit: Depression with SI Interim History: Patient said she is feeling better today. She is hopeful that this improved mood and decreased anxiety will remain. Discussed medication options but patient would like to remain on current regimen for now and see how goes. She asked again to help get into partial post discharge. Patient discussed wanting to take her son and visit her other son in [place] after discharge which she is setting up with her ex ; display card writer agrees that this demonstrates improved confidence Mental Status Exam Mental Status Exam Narrative: Pt is alert and oriented; behavior is cooperative, more calm; dressed in casual attire and well groomed; mood is described as better and affect congruent, more calm; eye contact appropriate; Speech is normal volume, rate, prosody; no psychomotor retardation present; thought process is organized and goal directed; Thought content is on treatment; still with intermittent passive wish but less intense; thinking about her children; otherwise pertinent to relevant topics and without any delusional content, paranoid ideations or grandiosity; no SI; no HI. There is no evidence of perceptual disturbance and denies AVH. Patients insight and judgment are fair and adequate. Diagnostics Vital Signs (24Hr): Vital Signs - 24 hr 12/11/22 18:00 Pulse Rate 90 Respiratory Rate 18 Blood Pressure 128/60 BMI result Body Mass Index 29.9 Labs 12/07/22 11:51 12/07/22 11:51 Medications Medications Current Medications Acetaminophen (Acetaminophen 325 Mg Tablet) 975 mg PO Q6H PRN PRN Reason: Headache/Pain Mild Scale (1-3) Last Admin: 12/09/22 11:46 Dose: 975 mg Al Hydroxide/Mg Hydroxide (Magnesium Hydrox/Alum Hydrox 30 Ml Oral.Susp) 30 ml PO Q6H PRN PRN Reason: Heartburn/Nausea Aripiprazole (Aripiprazole 10 Mg Tablet) 10 mg PO BEDTIME PATSY Last Admin: 12/11/22 21:06 Dose: 10 mg Bupropion HCl (Bupropion Hcl Xl 150 Mg Tab.Er.24h) 150 mg PO DAILY PATSY Last Admin: 12/12/22 08:26 Dose: 150 mg Buspirone HCl (Buspirone Hcl 10 Mg Tablet) 10 mg PO TID PRN PRN Reason: anxiety Last Admin: 12/12/22 09:37 Dose: 10 mg Buspirone HCl (Buspirone Hcl 10 Mg Tablet) 10 mg PO TID PATSY Last Admin: 12/12/22 08:26 Dose: 10 mg Cyclobenzaprine HCl (Cyclobenzaprine Hcl 10 Mg Tablet) 10 mg PO TID PRN PRN Reason: Pain, Mild (Pain Scale 1-3) Last Admin: 12/11/22 09:07 Dose: 10 mg Gabapentin (Gabapentin 400 Mg Capsule) 800 mg PO TID PATSY Last Admin: 12/12/22 08:26 Dose: 800 mg Hydroxyzine HCl (Hydroxyzine Hcl 50 Mg Tablet) 50 mg PO Q6H PRN PRN Reason: Anxiety Last Admin: 12/10/22 11:49 Dose: 50 mg Magnesium Hydroxide (Milk Of Magnesia 30 Ml Oral.Susp) 30 ml PO DAILY PRN PRN Reason: Constipation Last Admin: 12/08/22 11:10 Dose: 30 ml Prazosin HCl (Prazosin Hcl 1 Mg Capsule) 1 mg PO BEDTIME PATSY; Protocol Last Admin: 12/11/22 21:06 Dose: 1 mg Quetiapine Fumarate (Quetiapine Fumarate 25 Mg Tablet) 25 mg PO QID PRN PRN Reason: anxiety Last Admin: 12/10/22 14:07 Dose: 25 mg Sodium Biphosphate/Sodium Phosphate (Sodium Phosphate,[place]-Dibasic 133 Ml Enema) 133 ml [place] ONCE PRN PRN Reason: Constipation Trazodone HCl (Trazodone Hcl 50 Mg Tablet) 50 mg PO BEDTIME PRN PRN Reason: Insomnia Last Admin: 12/11/22 23:55 Dose: 50 mg Allergies Allergies Allergy/AdvReac Type Severity Reaction Status Date / Time No Known Allergies Allergy Verified 11/13/22 05:49 Assessment & Plan Assessment & Plan (1) MDD (major depressive disorder): Status: Acute Code(s): F32.9 - Major depressive disorder, single episode, unspecified (2) PTSD (post-traumatic stress disorder): Status: Acute Code(s): F43.10 - Post-traumatic stress disorder, unspecified Plan pt is a 32 yo female w/ hx of MDD, PTSD and Charcot Leanna Tooth Disease who presents for worsening depressive symptoms in face of being off medications that were only partially helpful.?Pt reports she has borderline personality disorder. -patient has been on Wellbutrin XL 150mg for 4 years w/out increase in dose; same with Abilify; pt says both together were partially helpful. -hx of panic attacks and nightmares -recently started on Tegretol for body pain related to CMT but sauys it makes her nauseas and maybe more depressed -discussed med regimen; see below Hospital course: 12/04/22 patient remains depressed and anxious however is a little more engage in discussion and with a little brighter affect; pushing herself to engage in groups. Patient reports increased pain from CMT flare. Says oxycodone has worked best in the past and says she only ever needs a few days of it. 12/05/22 pt still depressed, but less intensely so; still quite anxious; agrees to start trileptal (discussed risks/side-effects) 12/06 little better, no nightmare with Pazosin added 12/07 remains with depression anxiety and would like have Wellbutrin increased. No SI and no passive wish however which is progress. 12/09 patient very sad and anxious feeling very badly about herself. Agrees possible Wellbutrin side effect causing tremor and exacerbated anxiety 12/10 patient feeling a little better with Wellbutrin lowered back to 150; finds BuSpar helpful for lowering anxiety and agrees to have it scheduled. Given that Wellbutrin is now lowered, will have to see if depression worsens 12/12 improved mood and decreased anxiety; will continue current regimen for now; if remains stable over next few days, will start discharge planning PLAN: CV q15min checks Continue Wellbutrin XL 150 mg; does not seem to tolerate higher dose Continue prazosin 1mg for nightmare Continue Abilify at 10 mg q.h.s. Continue BuSpar 10 mg t.i.d. Continue BuSpar 10 mg t.i.d. p.r.n. for anxiety Seroquel 25 mg p.r.n. 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
[2022-12-12 21:29] VITALS: BP 122/78; PULSE 92; RESP 14; TEMP 36.3
[2022-12-12] MEDS: traZODone HCL 100 MG TABLET PO (21:31)
[2022-12-12] MEDS: Prazosin HCL 1 MG CAPSULE PO (21:31)
[2022-12-12] MEDS: ARIPiprazole 10 MG TABLET PO (21:31)
[2022-12-13 06:00] VITALS: BP 111/74; PULSE 107; RESP 16; TEMP 36.1; O2SAT 98
[2022-12-13] MEDS: Gabapentin 400 MG CAPSULE 800 MG PO ×3 (10:14→21:16)
[2022-12-13] MEDS: busPIRone HCl 10 MG TABLET PO ×4 (10:14→21:15)
[2022-12-13] MEDS: buPROPion HCl XL 150 MG TAB.ER.24H PO (10:14)
--- NOTE | 2022-12-13 10:39 | P.PNPSI_ITS ---
Subjective Subjective Date of Service: 12/13/22 Reason For Visit: Depression with SI Interim History: Continues to feel better and says mood is much improved and anxiety remains lower and tolerable. Patient still has some trouble sleeping and increased trazodone did make much difference. She would like to try some hydroxyzine stat. Otherwise she is feeling much more optimistic and feels she'll likely be ready to discharge Thursday Mental Status Exam Mental Status Exam Narrative: Pt is alert and oriented; behavior is cooperative, friendly, calm; dressed in casual attire and well groomed; mood is described as better and affect congruent, more calm; eye contact appropriate; Speech is normal volume, rate, prosody; no psychomotor retardation present; thought process is organized and goal directed; Thought content is on treatment; thinking about her children; otherwise pertinent to relevant topics and without any delusional content, paranoid ideations or grandiosity; no SI; no HI. There is no evidence of perceptual disturbance and denies AVH. Patients insight and judgment are fair and adequate. Diagnostics Vital Signs (24Hr): Vital Signs - 24 hr 12/12/22 21:29 Temperature 97.4 F Pulse Rate 92 Respiratory Rate 14 Blood Pressure 122/78 BMI result Body Mass Index 29.9 Labs 12/07/22 11:51 12/07/22 11:51 Medications Medications Current Medications Acetaminophen (Acetaminophen 325 Mg Tablet) 975 mg PO Q6H PRN PRN Reason: Headache/Pain Mild Scale (1-3) Last Admin: 12/09/22 11:46 Dose: 975 mg Al Hydroxide/Mg Hydroxide (Magnesium Hydrox/Alum Hydrox 30 Ml Oral.Susp) 30 ml PO Q6H PRN PRN Reason: Heartburn/Nausea Aripiprazole (Aripiprazole 10 Mg Tablet) 10 mg PO BEDTIME [facility] Last Admin: 12/12/22 21:31 Dose: 10 mg Bupropion HCl (Bupropion Hcl Xl 150 Mg Tab.Er.24h) 150 mg PO DAILY [facility] Last Admin: 12/13/22 10:14 Dose: 150 mg Buspirone HCl (Buspirone Hcl 10 Mg Tablet) 10 mg PO TID PRN PRN Reason: anxiety Last Admin: 12/12/22 19:16 Dose: 10 mg Buspirone HCl (Buspirone Hcl 10 Mg Tablet) 10 mg PO TID [facility] Last Admin: 12/13/22 10:14 Dose: 10 mg Cyclobenzaprine HCl (Cyclobenzaprine Hcl 10 Mg Tablet) 10 mg PO TID PRN PRN Reason: Pain, Mild (Pain Scale 1-3) Last Admin: 12/11/22 09:07 Dose: 10 mg Gabapentin (Gabapentin 400 Mg Capsule) 800 mg PO TID PATSY Last Admin: 12/13/22 10:14 Dose: 800 mg Hydroxyzine HCl (Hydroxyzine Hcl 50 Mg Tablet) 50 mg PO Q6H PRN PRN Reason: Anxiety Last Admin: 12/10/22 11:49 Dose: 50 mg Magnesium Hydroxide (Milk Of Magnesia 30 Ml Oral.Susp) 30 ml PO DAILY PRN PRN Reason: Constipation Last Admin: 12/08/22 11:10 Dose: 30 ml Prazosin HCl (Prazosin Hcl 1 Mg Capsule) 1 mg PO BEDTIME PATSY; Protocol Last Admin: 12/12/22 21:31 Dose: 1 mg Quetiapine Fumarate (Quetiapine Fumarate 25 Mg Tablet) 25 mg PO QID PRN PRN Reason: anxiety Last Admin: 12/10/22 14:07 Dose: 25 mg Sodium Biphosphate/Sodium Phosphate (Sodium Phosphate,[place]-Dibasic 133 Ml Enema) 133 ml [place] ONCE PRN PRN Reason: Constipation Trazodone HCl (Trazodone Hcl 50 Mg Tablet) 50 mg PO BEDTIME PRN PRN Reason: continued anxiety Trazodone HCl (Trazodone Hcl 100 Mg Tablet) 100 mg PO BEDTIME PATSY Last Admin: 12/12/22 21:31 Dose: 100 mg Allergies Allergies Allergy/AdvReac Type Severity Reaction Status Date / Time No Known Allergies Allergy Verified 11/13/22 05:49 Assessment & Plan Assessment & Plan (1) MDD (major depressive disorder): Status: Acute Code(s): F32.9 - Major depressive disorder, single episode, unspecified (2) PTSD (post-traumatic stress disorder): Status: Acute Code(s): F43.10 - Post-traumatic stress disorder, unspecified Plan pt is a 32 yo female w/ hx of MDD, PTSD and Charcot Leanna Tooth Disease who presents for worsening depressive symptoms in face of being off medications that were only partially helpful.?Pt reports she has borderline personality disorder. -patient has been on Wellbutrin XL 150mg for 4 years w/out increase in dose; same with Abilify; pt says both together were partially helpful. -hx of panic attacks and nightmares -recently started on Tegretol for body pain related to CMT but sauys it makes her nauseas and maybe more depressed -discussed med regimen; see below Hospital course: 12/04/22 patient remains depressed and anxious however is a little more engage in discussion and with a little brighter affect; pushing herself to engage in groups. Patient reports increased pain from CMT flare. Says oxycodone has worked best in the past and says she only ever needs a few days of it. 12/05/22 pt still depressed, but less intensely so; still quite anxious; agrees to start trileptal (discussed risks/side-effects) 12/06 little better, no nightmare with Pazosin added 12/07 remains with depression anxiety and would like have Wellbutrin increased. No SI and no passive wish however which is progress. 12/09 patient very sad and anxious feeling very badly about herself. Agrees possible Wellbutrin side effect causing tremor and exacerbated anxiety 12/10 patient feeling a little better with Wellbutrin lowered back to 150; finds BuSpar helpful for lowering anxiety and agrees to have it scheduled. Given that Wellbutrin is now lowered, will have to see if depression worsens 12/12 improved mood and decreased anxiety; will continue current regimen for now; if remains stable over next few days, will start discharge planning 12/13 remains improved; will add hydroxyzine for sleep; ?Discussed case with nursing; met with patient; reviewed vitals and WNL PLAN: CV q15min checks add hydroxyzine for sleep Continue Wellbutrin XL 150 mg; does not seem to tolerate higher dose Continue prazosin 1mg for nightmare Continue Abilify at 10 mg q.h.s. Continue BuSpar 10 mg t.i.d. Continue BuSpar 10 mg t.i.d. p.r.n. for anxiety Seroquel 25 mg p.r.n. 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
[2022-12-13 18:00] VITALS: BP 144/83; PULSE 109; RESP 20; TEMP 36; O2SAT 100
[2022-12-13] MEDS: ARIPiprazole 10 MG TABLET PO (21:15)
[2022-12-13] MEDS: Prazosin HCL 1 MG CAPSULE PO (21:16)
[2022-12-13] MEDS: traZODone HCL 50 MG TABLET PO (21:16)
[2022-12-13] MEDS: hydrOXYzine HCL 50 MG TABLET PO (21:19)
[2022-12-14 08:58] VITALS: BP 110/59; PULSE 96; RESP 16; TEMP 37; O2SAT 98
[2022-12-14] MEDS: busPIRone HCl 10 MG TABLET PO ×5 (09:00→22:05)
[2022-12-14] MEDS: buPROPion HCl XL 150 MG TAB.ER.24H PO (09:00)
[2022-12-14] MEDS: Gabapentin 400 MG CAPSULE 800 MG PO ×3 (09:00→22:05)
--- NOTE | 2022-12-14 09:41 | HO.PSYCHPN ---
Subjective Subjective Date of Service: 12/14/22 Reason For Visit: Depression with SI Interim History: Patient reports that mood and anxiety remain improved. Patient says she is not quite back to her regular self but agree she is good enough. She reports she has been at this level of stability for about 5 days now. She feels she would have no problem going to work and attending to ADLs. Patient feels ready for discharge tomorrow on his excited to see her son. She also has plans to go to [place] to visit her other son; after she returns she will start partial. She reports sleeping better and feels the current medication regimen is adequate. Mental Status Exam Mental Status Exam Narrative: Pt is alert and oriented; behavior is cooperative, friendly, calm; dressed in casual attire and well groomed; mood is described as better and affect congruent, more calm; eye contact appropriate; Speech is normal volume, rate, prosody; no psychomotor retardation present; thought process is organized and goal directed; Thought content is on treatment; thinking about her children; otherwise pertinent to relevant topics and without any delusional content, paranoid ideations or grandiosity; no SI; no HI. There is no evidence of perceptual disturbance and denies AVH. Patients insight and judgment are fair and adequate. Diagnostics Vital Signs (24Hr): Vital Signs - 24 hr 12/13/22 18:00 Temperature 96.8 F Pulse Rate 109 H Respiratory Rate 20 Blood Pressure 144/83 H Pulse Oximetry 100 Oxygen Delivery Method Room Air BMI result Body Mass Index 29.9 Labs 12/07/22 11:51 12/07/22 11:51 Medications Medications Current Medications Acetaminophen (Acetaminophen 325 Mg Tablet) 975 mg PO Q6H PRN PRN Reason: Headache/Pain Mild Scale (1-3) Last Admin: 12/09/22 11:46 Dose: 975 mg Al Hydroxide/Mg Hydroxide (Magnesium Hydrox/Alum Hydrox 30 Ml Oral.Susp) 30 ml PO Q6H PRN PRN Reason: Heartburn/Nausea Aripiprazole (Aripiprazole 10 Mg Tablet) 10 mg PO BEDTIME [facility] Last Admin: 12/13/22 21:15 Dose: 10 mg Bupropion HCl (Bupropion Hcl Xl 150 Mg Tab.Er.24h) 150 mg PO DAILY PATSY Last Admin: 12/14/22 09:00 Dose: 150 mg Buspirone HCl (Buspirone Hcl 10 Mg Tablet) 10 mg PO TID PRN PRN Reason: anxiety Last Admin: 12/13/22 12:40 Dose: 10 mg Buspirone HCl (Buspirone Hcl 10 Mg Tablet) 10 mg PO TID PATSY Last Admin: 12/14/22 09:00 Dose: 10 mg Cyclobenzaprine HCl (Cyclobenzaprine Hcl 10 Mg Tablet) 10 mg PO TID PRN PRN Reason: Pain, Mild (Pain Scale 1-3) Last Admin: 12/11/22 09:07 Dose: 10 mg Gabapentin (Gabapentin 400 Mg Capsule) 800 mg PO TID PATSY Last Admin: 12/14/22 09:00 Dose: 800 mg Hydroxyzine HCl (Hydroxyzine Hcl 50 Mg Tablet) 50 mg PO Q6H PRN PRN Reason: Anxiety Last Admin: 12/10/22 11:49 Dose: 50 mg Hydroxyzine HCl (Hydroxyzine Hcl 50 Mg Tablet) 50 mg PO BEDTIME PRN PRN Reason: Insomnia Last Admin: 12/13/22 21:19 Dose: 50 mg Magnesium Hydroxide (Milk Of Magnesia 30 Ml Oral.Susp) 30 ml PO DAILY PRN PRN Reason: Constipation Last Admin: 12/08/22 11:10 Dose: 30 ml Prazosin HCl (Prazosin Hcl 1 Mg Capsule) 1 mg PO BEDTIME [facility]; Protocol Last Admin: 12/13/22 21:16 Dose: 1 mg Quetiapine Fumarate (Quetiapine Fumarate 25 Mg Tablet) 25 mg PO QID PRN PRN Reason: anxiety Last Admin: 12/10/22 14:07 Dose: 25 mg Sodium Biphosphate/Sodium Phosphate (Sodium Phosphate,Cook-Dibasic 133 Ml Enema) 133 ml MA ONCE PRN PRN Reason: Constipation Trazodone HCl (Trazodone Hcl 50 Mg Tablet) 50 mg PO BEDTIME PRN PRN Reason: continued anxiety Trazodone HCl (Trazodone Hcl 50 Mg Tablet) 50 mg PO BEDTIME PATSY Last Admin: 12/13/22 21:16 Dose: 50 mg Allergies Allergies Allergy/AdvReac Type Severity Reaction Status Date / Time No Known Allergies Allergy Verified 11/13/22 05:49 Assessment & Plan Assessment & Plan (1) MDD (major depressive disorder): Status: Acute Code(s): F32.9 - Major depressive disorder, single episode, unspecified (2) PTSD (post-traumatic stress disorder): Status: Acute Code(s): F43.10 - Post-traumatic stress disorder, unspecified Plan pt is a 32 yo female w/ hx of MDD, PTSD and Charcot Leanna Tooth Disease who presents for worsening depressive symptoms in face of being off medications that were only partially helpful.?Pt reports she has borderline personality disorder. -patient has been on Wellbutrin XL 150mg for 4 years w/out increase in dose; same with Abilify; pt says both together were partially helpful. -hx of panic attacks and nightmares -recently started on Tegretol for body pain related to CMT but sauys it makes her nauseas and maybe more depressed -discussed med regimen; see below Hospital course: 12/04/22 patient remains depressed and anxious however is a little more engage in discussion and with a little brighter affect; pushing herself to engage in groups. Patient reports increased pain from CMT flare. Says oxycodone has worked best in the past and says she only ever needs a few days of it. 12/05/22 pt still depressed, but less intensely so; still quite anxious; agrees to start trileptal (discussed risks/side-effects) 12/06 little better, no nightmare with Pazosin added 12/07 remains with depression anxiety and would like have Wellbutrin increased. No SI and no passive wish however which is progress. 12/09 patient very sad and anxious feeling very badly about herself. Agrees possible Wellbutrin side effect causing tremor and exacerbated anxiety 12/10 patient feeling a little better with Wellbutrin lowered back to 150; finds BuSpar helpful for lowering anxiety and agrees to have it scheduled. Given that Wellbutrin is now lowered, will have to see if depression worsens 12/12 improved mood and decreased anxiety; will continue current regimen for now; if remains stable over next few days, will start discharge planning 12/13 remains improved; will add hydroxyzine for sleep; ?Discussed case with nursing; met with patient; reviewed vitals and WNL 12/14 Discussed case with nursing; met with patient; reviewed vitals and mildly hypertensive but at baseline; she remains in significantly improved mood and with significantly reduced anxiety; sleeping better and well enough. Feels ready for discharge. Patient is future oriented, with plans to take her son in visit her other son in [place]; afterwards she will attend partial day program. Equine Pharmacology Technician and patient reviewed medication list and patient feels regimen is adequate and would like to remain on current doses. Patient is not in imminent risk for harm to self or others and her request for discharge honored PLAN: CV q15min checks add hydroxyzine for sleep Continue Wellbutrin XL 150 mg; does not seem to tolerate higher dose Continue prazosin 1mg for nightmare Continue Abilify at 10 mg q.h.s. Continue BuSpar 10 mg t.i.d. Continue BuSpar 10 mg t.i.d. p.r.n. for anxiety Seroquel 25 mg p.r.n. 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
[2022-12-14] MEDS: hydrOXYzine HCL 50 MG TABLET PO ×2 (14:38→22:06)
[2022-12-14 18:00] VITALS: BP 117/62; PULSE 94; RESP 16
[2022-12-14] MEDS: traZODone HCL 50 MG TABLET PO (22:05)
[2022-12-14] MEDS: Prazosin HCL 1 MG CAPSULE PO (22:05)
[2022-12-14] MEDS: ARIPiprazole 10 MG TABLET PO (22:05)
[2022-12-15 06:00] VITALS: BP 107/68; PULSE 99; RESP 18
[2022-12-15] MEDS: buPROPion HCl XL 150 MG TAB.ER.24H PO (08:42)
[2022-12-15] MEDS: busPIRone HCl 10 MG TABLET PO ×2 (08:42→10:38)
[2022-12-15] MEDS: Gabapentin 400 MG CAPSULE 800 MG PO (08:43)
--- NOTE | 2022-12-15 09:57 | PM.PSYDC ---
DS: Providers Provider Date of Service: 12/15/22 Date of admission: 12/01/22 18:38 Date of discharge: 12/15/22 Primary care physician: Khloe Physician Attending physician on admission: Heber Olvera Attending physician on discharge: Heber Olvera DS: Diagnosis Discharge Diagnosis (1) MDD (major depressive disorder): Status: Acute (2) PTSD (post-traumatic stress disorder): Status: Acute DS: Medications Discharge Medications Home Medications: Previous Rx's Medication Instructions Recorded ketorolac 10 mg tablet 10 mg PO Q6H PRN pain 5 days #20 11/13/22 tabs aripiprazole 10 mg tablet 10 mg PO BEDTIME 30 days #30 tabs 12/15/22 bupropion HCl 150 mg 24 hr tablet, 150 mg PO DAILY 30 days #30 tabs 12/15/22 extended release buspirone 10 mg tablet See Rx Instructions .Route 12/15/22 .COMPLEX 30 days #120 tabs cyclobenzaprine 10 mg tablet 10 mg PO TID PRN muscle spasm 30 12/15/22 days #30 tabs gabapentin 800 mg tablet 800 mg PO TID 30 days #90 tabs 12/15/22 hydroxyzine HCl 50 mg tablet 50 mg PO Q6H PRN Anxiety/insomnia 12/15/22 30 days #90 tabs prazosin 1 mg capsule 1 mg PO BEDTIME 30 days #30 caps 12/15/22 trazodone 50 mg tablet 50 mg PO BEDTIME PRN insomnia 30 12/15/22 days #30 tabs Mental Status Exam Mental Status Exam Narrative: Pt is alert and oriented; behavior is cooperative, friendly, calm; dressed in casual attire and well groomed; mood is described as better and affect congruent, more calm; eye contact appropriate; Speech is normal volume, rate, prosody; no psychomotor retardation present; thought process is organized and goal directed; Thought content is on treatment; thinking about her children; otherwise pertinent to relevant topics and without any delusional content, paranoid ideations or grandiosity; no SI; no HI. There is no evidence of perceptual disturbance and denies AVH. Patients insight and judgment are fair and adequate. Data Data Completed and Pending Completed studies during hospitalization [Text1]: 12/01/22 23:00 Urine clean catch - Urine [place] top Urine Culture - Final No growth. DS: Summary Hospital Course Hospital Course: HPI: pt is a 32 yo female w/ hx of MDD, PTSD and Charcot Leanna Tooth Disease who presents for worsening depressive symptoms in face of being off medications that were only partially helpful.?Pt reports she has borderline personality disorder. -patient has been on Wellbutrin XL 150mg for 4 years w/out increase in dose; same with Abilify; pt says both together were partially helpful. -hx of panic attacks and nightmares -recently started on Tegretol for body pain related to CMT but sauys it makes her nauseas and maybe more depressed -discussed med regimen; see below Hospital course: 12/04/22 patient remains depressed and anxious however is a little more engage in discussion and with a little brighter affect; pushing herself to engage in groups.? Patient reports increased pain from CMT flare.? Says oxycodone has worked best in the past and says she only ever needs a few days of it. 12/05/22 pt still depressed, but less intensely so; still quite anxious; agrees to start trileptal (discussed risks/side-effects) 12/06 little better, no nightmare with Pazosin added 12/07 remains with depression anxiety and would like have Wellbutrin increased.? No SI and no passive wish however which is progress. 12/09 patient very sad and anxious feeling very badly about herself.? Agrees possible Wellbutrin side effect causing tremor and exacerbated anxiety 12/10 patient feeling a little better with Wellbutrin lowered back to 150; finds BuSpar helpful for lowering anxiety and agrees to have it scheduled.? Given that Wellbutrin is now lowered, will have to see if depression worsens 12/12 improved mood and decreased anxiety; will continue current regimen for now; if remains stable over next few days, will start discharge planning 12/13 remains improved; will add hydroxyzine for sleep; ? Patient's mood remains significantly improved, depression abated, no SI, anxiety significantly reduced and tolerable and patient feeling back to her regular self, feeling ready for discharge. Patient is sleeping much better and feels that she is sleeping well enough. She has remained in good behavioral and impulse control throughout her stay and has been appropriate with peers and staff; she has been engaged in treatment and now feels ready for discharge.? Patient is future oriented, with plans to take her son in visit her other son in [place]; afterwards she will attend partial day program.? Lime Hide Inspector and patient reviewed medication list and patient feels regimen is adequate and would like to remain on current doses.? Patient is not in imminent risk for harm to self or others and her request for discharge honored Medication: Continued home dose Wellbutrin XL 150 mg; does not seem to tolerate higher dose Continued home dose Abilify at 10 mg q.h.s. Added prazosin 1mg for nightmare Added BuSpar 10 mg t.i.d. with some as p.r.n. Added Seroquel 25 mg p.r.n. 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 Please arrive 15 minutes early to complete paperwork. Patient should also ask regarding referral for case management services.) [facility]: Ela Boyd [Other] - 01/07/23 10:00 am (Initial Psychiatric Evaluation with outpatient psychiatric medication provider Appointment is by tele-health. Please Check your email for a link to your scheduled appointment.) [facility]: Ela Boyd [Other] - 02/04/23 10:00 am (Medication management appointment with outpatient psychiatric provider. Appointment is by tele-health. Please check your email for a link to this appointment.) Merly Carrington MD [Physician] - 01/27/23 2:00 pm (in ofice) Discharge Medications: New prazosin 1 mg Capsule 1 mg PO BEDTIME 30 Days Qty: 30 1RF Protocol: Hold for SBP< HOLD for SBP < : 90 aripiprazole 10 mg Tablet 10 mg PO BEDTIME 30 Days Qty: 30 1RF bupropion HCl 150 mg Tablet Extended Release 24 Hr 150 mg PO DAILY 30 Days Qty: 30 1RF buspirone 10 mg Tablet See Rx Instructions .ROUTE .COMPLEX 30 Days Qty: 120 1RF Rx Instructions: Take 1 tablet 3 times a day; may take 1 extra tablet daily as needed for breakthrough anxiety hydroxyzine HCl 50 mg Tablet 50 mg PO Q6H PRN (Reason: Anxiety/insomnia) 30 Days Qty: 90 1RF trazodone 50 mg Tablet 50 mg PO BEDTIME PRN (Reason: insomnia) 30 Days Qty: 30 1RF Continued cyclobenzaprine 10 mg tablet 10 mg PO TID PRN (Reason: muscle spasm) 30 Days Qty: 30 1RF gabapentin 800 mg tablet 800 mg PO TID 30 Days Qty: 90 1RF Discontinued oxycodone-acetaminophen [Percocet] 5-325 mg tablet 1 tab PO Q4H PRN (Reason: pain (scale score 7-10)) Qty: 10 0RF Rx Instructions: Partial Fill upon patient request. aripiprazole [Abilify] 5 mg Tablet 5 mg PO DAILY morphine 15 mg tablet 15 mg PO TID PRN (Reason: pain) Qty: 10 0RF Rx Instructions: partial fill okay; Partial Fill upon patient request. carbamazepine 100 mg tablet,chewable 100 mg PO BID 30 Days Qty: 60 0RF Discharge Orders: Discharge Order (Routine); Ordered 12/15/22 Ordered By: Heber Olvera Diet: Regular diet Activity on Discharge: As tolerated Stand Alone Forms: Patient Portal Discharge page, Community Support Care Plan Goals: Maintain mood and safe behaviors Take medications as prescribed Practice coping skills Continue with outpatient providers and reach out to them as needed Health Concerns: Mood stability and behaviors Charcot Leanna Tooth Syndrome Plan of Treatment: Follow up with your PCP, psychiatric provider and other outpatient providers regarding above concerns Take medications as prescribed Assessment: Risk assessment at time of discharge:? Patient was interviewed prior to discharge and found to be fully oriented and without any SI or HI. Patient has insight and demonstrates good judgment in terms of wanting to pursue treatment. Patient is not in imminent risk of harm to self or others and has a safety plan that includes presenting to the closest ER or calling 911 if feeling unsafe.? Patient has been observed closely by nursing and unit staff throughout admission; patient has not engaged in any behaviors that suggest dangerousness to self or others and has demonstrated appropriate behaviors and impulse control Discharge Date/Time: 12/15/22 13:41
[2022-12-15] MEDS: hydrOXYzine HCL 50 MG TABLET PO (13:17)
== END 2022-12-15 13:41 | disposition home or self-care (01) | DRG 754 ==
LOC: HO.ED 15:08 → HO.PM5 18:43
PROVIDERS: Clinical Nurse Specialist Psychiatric/Mental Health, Adult; Admitting Provider Psychiatry & Neurology Psychiatry; Emergency Provider Student in an Organized Health Care Education/Training Program; Visit Provider Psychiatry & Neurology Psychiatry
DX: F32.9 Major depressive disorder, single episode, unspecified (principal); R45.851 Suicidal ideations; F17.210 Nicotine dependence, cigarettes, uncomplicated; F43.10 Post-traumatic stress disorder, unspecified; Z20.822 Contact with and (suspected) exposure to COVID-19; Z71.6 Tobacco abuse counseling; Z79.899 Other long term (current) drug therapy
CPT/HCPCS: 36415; 80053; 80061; 80307; 81001; 81025; 82607; 82746; 83036; 83735; 84439; 84443; 85025; 87086; 87635; 99285

== ENCOUNTER 2023-01-09 13:58 | Outpatient (REF) | payer MEDICAID, SELFPAY ==
[2023-01-09 15:48] LABS: Syphilis Screen Nonreactive (Nonreactive)
[2023-01-09 16:27] LABS: CT PCR NOT DETECTED (Not Detect.); NG PCR NOT DETECTED (Not Detect.)
[2023-01-12 04:30] LABS: HIV AB/AG Nonreactive (Nonreactive); HIV Num 1 0.06 S/CO (0.00-0.99)
== END 2023-01-09 13:59 | disposition home or self-care (01) ==
LOC: HO.LAB 13:58
PROVIDERS: PCP Internal Medicine; Visit Provider Nurse Practitioner Psychiatric/Mental Health
DX: Z11.3 Encounter for screening for infections with a predominantly sexual mode of transmission (principal); Z11.4 Encounter for screening for human immunodeficiency virus [HIV]
CPT/HCPCS: 0353U; 86780; 87389

== ENCOUNTER 2023-01-29 08:45 | Outpatient (RCR) | payer OTHER, SELFPAY ==
--- NOTE | 2023-01-05 11:08 | HO.PS.ADMBH ---
[facility] Date of Service: 01/05/23 Chief Complaint: MDD,PTSD Sources of Information: patient interviewed, chart reviewed and crisis/core team assessment reviewed [facility] Guardianship: No Medical Problems Affecting Mental Status: No Narrative: Prior to meeting with patient, inpatient chart reviewed, including lab work. Ms. Pulliam is a 32-year-old woman, referred to [facility] as a step-down from inpatient level of care, . Pt has a history of MDD, PTSD and Charcot Leanna Tooth disease. She was hospitalized from 12-01-2022 through 12/15/2022, due to increased symptoms of depression with SI. Precipitants to the hospitalization included a new job, moving from [place] to [place], lack of a prescriber and had been off medications. Patient reports a long standing history of depression since she was an adolescent. Pt reports 4 inpatient hospitalizations since the age 18 , a suicide attempt with overdose that required medical intervention when she was 21 years. Today patient endorses passive SI describes comes and goes with no intent , anxiety and depression. Pt's protective factor is her son , afraid to traumatize him if he found her . She denies AH/VH. Hx of VH (shadows) reported in past, when in extreme anxious state. Pt has no history of ksenia and hypomania. Per patient report she received a diagnosis of borderline personality disorder around 22 years. The patient currently lives with sister and is in process of looking for new housing. Pt has had difficulty maintaining employment due to increased depression, anxiety and boredom. Would like to be able to remain at a job, and be able to provide for herself and her son. She has been in a PHP in the past, and found it helpful. The patient had recent medication changes while inpatient, and is finding them to be effective. Patient is currently satisfied with medication regimen, not interested in any changes at this time. Her main concern at this time is to learn healthy coping skills while in program, and to find stable housing. Past Psychiatric History: Med Trials: lithium , Remeron (vivid dreams) psych hospitalization 3 times, most recent [facility] 11/2022, 4 years ago for depression and age 21 SA one time when she was 21 yo, Hx SIB as a teenager detox from Benzo's early ; no drug abuse since Has new intake appointments for therapist and provider through [facility] Medical Evaluation Reviewed: Yes [facility] Medical History Anxiety Charcot Leanna Tooth muscular atrophy Depression PTSD (post-traumatic stress disorder) Family History: maternal side anxiety/depression, uncle with active substance use disorder Social History: 2 brothers , raised by aunt in [place] after mother's mother when pt was 8 yo recently back in touch with estranged father 2 children moved to [facility] fall 2021 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 Patient Appearance: Well Grooomed Patient Orientation: Person, Place, Time and Situation Level of Consciousness: Awake and Alert Patient Behavior: Appropriate, Cooperative, Anxious and Good Eye Contact Mood Description: Depressed and Anxious Affect Description: Depressed and Anxious Patient Cognition Impaired: No Ability to Follow Directions: Good Speech Pattern: Clear and Appropriate Memory Description: Intact Hallucinations: None Delusions: Not Present Thought Process: Intact, Goal Oriented and Linear Thought Content: positive for Intact, positive for Goal Oriented and positive for Suicidal Ideation (Passive ) Depressive Symptoms: Increased Anxiety, Changes in Appetite, Loss of Int. in Activity, Hopelessness, Feelings of Guilt, Increased Fatigue, Thoughts of /Suicide (passive SI), Low Self Esteem and Difficulty Concentrating Judgement: Fair Assessment & Plan Assessment & Plan (1) MDD (major depressive disorder): Status: Acute Code(s): F32.9 - Major depressive disorder, single episode, unspecified Assessment and Plan: Ms. Pulliam is a 32-year-old woman, referred to [facility] as a step-down from inpatient level of care, . She was hospitalized from 12-01-2022 through 12/15/2022, due to increased symptoms of depression with SI. Precipitants to the hospitalization included a new job, moving from [place] to [place] , lack of prescriber or therapist, and had been off medications for approximately one month. Discussed current medications, reports meds are working. Had recent increase of welbutrin dose while in patient but found it to increase anxiety and cause tremors. Dose was returned to 150mg daily, with positive effect. Reports new medication buspar is effective in helping to manage anxiety sx. Discussed current cannabis uses , she describes use as a minimal , purchases small amounts of flower from dispensary, uses to help with anxiety and sleep. We discussed THC concetration levels as related to increased anxiety, pt verbalized understanding. (2) PTSD (post-traumatic stress disorder): Status: Acute Code(s): F43.10 - Post-traumatic stress disorder, unspecified Assessment and Plan: Pt was started with prazosin for nightmares while in patient , finds it helpful. No other current PTSD symptoms reported. Plan 1. Continue with [facility] plan of care 2. Continue with current medications as prescribed 3. Follow up as per protocol Patient educated on: diagnosis, medication risk/benefits, substance abuse and therapeutic strategies Informed Consent: understands Reason for continued partial hosp. stay Substantial Risk for: harm to self, inability to function and rapid decompensation Certification I certify that partial hospital treatment is medically necessary due to the symptoms and problems resulting from the patient's mental illness and the failure to treat the patient at the partial hospital level of care would likely result in the patient requiring inpatient psychiatric care which could not be prevented at a less intensive level of care. Time Spent With Patient Time: Total time managing care of this patient today _60___ minutes.
[2023-01-05 11:50] VITALS: BMI 33.6
[2023-01-05 13:26] VITALS: BP 102/72; PULSE 88; TEMP 37.2
--- NOTE | 2023-01-05 13:26 | PC.ADMIT ---
Patient is a 32 year old female who recently moved from [place] to [place] for more support from family. Patient was referred to [facility] by [facility] inpatient behavioral health unit where patient was admitted d/t increased depression sxs with passive SI and increased anxiety sxs. Patient reportedly not attending to her ADL's. Per Integrative Assessment patient reportedly was experiencing VH of shadows coming up from the floor to get her. Patient denied AH, VH , or any paranoid thoughts. Patient feeling much guilt for leaving her son in [place] with his father and is unsure if she made the right decision. Patient reports difficulty holding a job d/t depression and anxiety and reports the longest she has stayed in a job was one year. 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 Patient is alert and oriented x4. Calm and cooperative. Presented with depressed mood, anxious affect. Reports some passive vague SI at times however denied plan or intent to act on the thoughts. Patient reports taking her medications as prescribed with the exception of last night as she stated she fell asleep early. Medications reconciled with patient and d/c medications record from inpatient unit.
--- NOTE | 2023-01-09 07:50 | HO.PHP ---
The clients case was reviewed and opened in treatment team
--- NOTE | 2023-01-12 13:58 | HO.PHPPROGNO ---
Subjective Subjective Date of Service: 01/12/23 Reason For Visit: MDD,PTSD Medical Problems Affecting Mental Status: No Interim History: Has been experiencing increased dissociative episodes, 30 minutes can go by at a time. Continues with nightmares on nights she forgets to take prazosin. The medication is effective for nightmares, but has vivid dreams. Some intrusive thoughts. Passive intermittent SI, no plan/intent. Continues with some anxiety and depression. Going through a difficult relationship break up currently. Questions diagnosis of PTSD verses BPD. Medication Compliance: Yes Side effects from medications: Yes (vivid dreams with prazosin) Attending Groups: Yes Review of Systems Acute medical concerns: No Medical Review of Systems: unchanged Review of Systems Review of Systems Yes all other systems are reviewed and are negative Constitutional: Reports no additional constitutional complaints Mental Status Exam Mental Status Exam Patient Appearance: Well Grooomed and Appropriate Patient Orientation: Person, Place, Time and Situation Level of Consciousness: Awake, Restless and Alert Patient Behavior: Restless and Anxious Mood Description: Depressed and Anxious Affect Description: Depressed and Anxious Patient Cognition Impaired: No Ability to Follow Directions: Good Speech Pattern: Clear Memory Description: Intact Hallucinations: None Delusions: Not Present Perceptual Disturbances: Depersonalization Thought Process: Intact and Goal Oriented Thought Content: positive for Suicidal Ideation (passive ) Depressive Symptoms: Increased Anxiety, Diff. Making Decisions, Difficulty Sleeping, Loss of Int. in Activity, Unhappiness, Thoughts of /Suicide and Low Self Esteem Judgement: Fair Diagnostics Vital Signs (24Hr): BMI result Body Mass Index 33.6 Assessment & Plan Assessment & Plan (1) PTSD (post-traumatic stress disorder): Status: Acute Code(s): F43.10 - Post-traumatic stress disorder, unspecified Assessment and Plan: Overall patient continues with symptoms of PTSD, including dissociative episodes. Utilizing prazosin with positive affect for nightmares. Satisfied with current dose. Has questions regarding previous diagnosis of borderline personality disorder, now with PTSD. Patient education regarding both diagnoses in detail, including symptoms, treatment. Questions were answered to her satisfaction. She does endorse classic symptoms of PTSD, including hypervigilance, hyperarousal, nightmares, exaggerated startle response, flashbacks, dissociation at times. She is currently experiencing relationship difficulties with partner that lives in [place]. However, did not display classic borderline personality traits including difficulty maintaining relationships, impulsivity, poor self image, fears of abandonment, difficulty with intense anger, stress related paranoia. Was able to clearly state her rationale regarding relationship concerns, turns in her decision to consider ending it. Had well thought out rationale. Has had some intrusive thoughts. Discussed possible change of Abilify to risperidone. However, patient has been stable with Abilify for some time. Discuss this as possible change in the future, when she is working with an outpatient provider. She was in agreement with this. (2) MDD (major depressive disorder): Status: Acute Code(s): F32.9 - Major depressive disorder, single episode, unspecified Assessment and Plan: Continues with some depression, although not debilitating. Continues with some passive SI, describes them as off and on, no intent or plan to harm herself or others in any way. Has found groups helpful, but also triggering at times. Overall finding program helpful. Plan 1. Continue with current [facility] plan of care. 2. Continue with current medications as prescribed. 3. Follow-up as per protocol. Patient educated on: diagnosis, medication risk/benefits and therapeutic strategies Informed Consent: understands Reason for contiued partial hosp. stay Substantial Risk for: harm to self, inability to function and rapid decompensation Certification I certify that partial hospital treatment is medically necessary due to the symptoms and problems resulting from the patient's mental illness and the failure to treat the patient at the partial hospital level of care would likely result in the patient requiring inpatient psychiatric care which could not be prevented at a less intensive level of care. Total time managing care of this patient today __20__ minutes. Discharge Plan Discharge Attending provider: Lam Wilcox Medications: No Action prazosin 1 mg Capsule 1 mg PO BEDTIME 30 Days Qty: 30 1RF Protocol: Hold for SBP< HOLD for SBP < : 90 aripiprazole 10 mg Tablet 10 mg PO BEDTIME 30 Days Qty: 30 1RF bupropion HCl 150 mg Tablet Extended Release 24 Hr 150 mg PO DAILY 30 Days Qty: 30 1RF buspirone 10 mg Tablet See Rx Instructions .ROUTE .COMPLEX 30 Days Qty: 120 1RF Rx Instructions: Take 1 tablet 3 times a day; may take 1 extra tablet daily as needed for breakthrough anxiety hydroxyzine HCl 50 mg Tablet 50 mg PO Q6H PRN (Reason: Anxiety/insomnia) 30 Days Qty: 90 1RF trazodone 50 mg Tablet 50 mg PO BEDTIME PRN (Reason: insomnia) 30 Days Qty: 30 1RF cyclobenzaprine 10 mg tablet 10 mg PO TID PRN (Reason: muscle spasm) 30 Days Qty: 30 1RF gabapentin 800 mg tablet 800 mg PO TID 30 Days Qty: 90 1RF Stand Alone Forms: Patient Portal Discharge page
--- NOTE | 2023-01-13 08:18 | PC.NURSE ---
Cheyanne called [facility] this morning to call out sick. Per [facility], patient up all night coughing and did not get any sleep. Also reports she is safe and will be here tomorrow.
--- NOTE | 2023-01-13 08:24 | HO.PHP ---
The client called out sick
--- NOTE | 2023-01-15 13:15 | PC.NURSE ---
Patient interested in seeing a directory compiler for healthy eating. Patient called [facility] nutrition and left a message to set up an appointment. Patient also stated she has a new PCP appointment on the of this month and was advised to get a referral for a directory compiler if needed from her PCP.
--- NOTE | 2023-01-20 09:48 | HO.PHP ---
I called Cindy because she did not come in this morning. She explained that she is feeling very ill and is going to urgent care. She has been congested and coughing.
--- NOTE | 2023-01-22 10:35 | PC.NURSE ---
Cheyanne did not show up to the program today. I spoke to Cheyanne who stated she continues to be sick but is feeling much better. Stated she was dx with bronchitis and was given an inhaler. Plans on coming to the program tomorrow. She stated she sometimes forgets to take her medications and wanted some guidance on how to remember to take her medications every day. Medication education provided including using a pill organizer.
--- NOTE | 2023-01-23 12:44 | P.PNPSP_ITS ---
Subjective Subjective Date of Service: 01/23/23 Reason For Visit: MDD,PTSD Medical Problems Affecting Mental Status: No Interim History: Describes mood as ?good, less depressed. Satisfied with current medication regimen. Reports that sometimes she forgets to take them, reports that she is on organized at times. 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 No SI, no safety concerns. Medication Compliance: Intermittent (due to forgetfulness) Side effects from medications: No Attending Groups: Yes Review of Systems Acute medical concerns: No Medical Review of Systems: unchanged Review of Systems Review of Systems Yes all other systems are reviewed and are negative Constitutional: Reports no additional constitutional complaints Mental Status Exam Mental Status Exam Patient Appearance: Well Grooomed and Appropriate Patient Orientation: Person, Place, Time and Situation Level of Consciousness: Appropriate and Alert Patient Behavior: Appropriate Mood Description: Depressed (less) Affect Description: Appropriate Patient Cognition Impaired: No Ability to Follow Directions: Excellent Speech Pattern: Clear Memory Description: Intact Hallucinations: None Delusions: Not Present Perceptual Disturbances: Depersonalization Thought Process: Intact Thought Content: positive for Intact Depressive Symptoms: Increased Anxiety, Diff. Making Decisions, Loss of Int. in Activity and Low Self Esteem Judgement: Fair Diagnostics Vital Signs (24Hr): BMI result Body Mass Index 33.6 Assessment & Plan Assessment & Plan (1) MDD (major depressive disorder): Status: Acute Code(s): F32.9 - Major depressive disorder, single episode, unspecified Assessment and Plan: Less depressed. No SI, either active or passive. Feels safe. Reports that she is unorganized at times, forgetful. Would like her medications in pre filled packet. She meets new primary care provider Thursday, as well has having upcoming appointment with new psych provider at [facility]. We discussed [facility], as they use pharmacy that provides prefilled packs of meds. She states she will look into this. Overall feels her mood has been improving since being in program. Finding groups helpful. (2) PTSD (post-traumatic stress disorder): Status: Acute Code(s): F43.10 - Post-traumatic stress disorder, unspecified Plan 1. Continue with current [facility] plan of care. 2. Continue with current medications as prescribed. 3. Follow-up as per protocol. Patient educated on: diagnosis, medication risk/benefits and therapeutic strategies Informed Consent: understands Reason for contiued partial hosp. stay Substantial Risk for: harm to self, inability to function and rapid decompensation Certification I certify that partial hospital treatment is medically necessary due to the symptoms and problems resulting from the patient's mental illness and the failure to treat the patient at the partial hospital level of care would likely result in the patient requiring inpatient psychiatric care which could not be prevented at a less intensive level of care. Total time managing care of this patient today __20__ minutes. Discharge Plan Discharge Attending provider: Lam Wilcox Medications: No Action prazosin 1 mg Capsule 1 mg PO BEDTIME 30 Days Qty: 30 1RF Protocol: Hold for SBP< HOLD for SBP < : 90 aripiprazole 10 mg Tablet 10 mg PO BEDTIME 30 Days Qty: 30 1RF bupropion HCl 150 mg Tablet Extended Release 24 Hr 150 mg PO DAILY 30 Days Qty: 30 1RF buspirone 10 mg Tablet See Rx Instructions .ROUTE .COMPLEX 30 Days Qty: 120 1RF Rx Instructions: Take 1 tablet 3 times a day; may take 1 extra tablet daily as needed for breakthrough anxiety hydroxyzine HCl 50 mg Tablet 50 mg PO Q6H PRN (Reason: Anxiety/insomnia) 30 Days Qty: 90 1RF trazodone 50 mg Tablet 50 mg PO BEDTIME PRN (Reason: insomnia) 30 Days Qty: 30 1RF cyclobenzaprine 10 mg tablet 10 mg PO TID PRN (Reason: muscle spasm) 30 Days Qty: 30 1RF gabapentin 800 mg tablet 800 mg PO TID 30 Days Qty: 90 1RF Stand Alone Forms: Patient Portal Discharge page
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
--- NOTE | 2023-01-29 11:43 | P.PNPSP_ITS ---
Subjective Subjective Date of Service: 01/29/23 Reason For Visit: MDD,PTSD Medical Problems Affecting Mental Status: No Interim History: Describes mood as good . No SI, feels safe. Has appt with new psych provider on February 05. Asking for refill of psychiatric meds. Feels stable for discharge from [facility] at this time. Medication Compliance: Yes Side effects from medications: No Attending Groups: Yes Review of Systems Acute medical concerns: No Medical Review of Systems: unchanged Review of Systems Review of Systems Yes all other systems are reviewed and are negative Constitutional: Reports no additional constitutional complaints Mental Status Exam Mental Status Exam Patient Appearance: Well Grooomed and Appropriate Patient Orientation: Person, Place, Time and Situation Level of Consciousness: Appropriate and Alert Patient Behavior: Appropriate Mood Description: Appropriate Affect Description: Appropriate Patient Cognition Impaired: No Ability to Follow Directions: Excellent Speech Pattern: Clear Memory Description: Intact Hallucinations: None Delusions: Not Present Perceptual Disturbances: Depersonalization Thought Process: Intact Thought Content: positive for Intact Judgement: Good Diagnostics Vital Signs (24Hr): BMI result Body Mass Index 33.6 Assessment & Plan Assessment & Plan (1) MDD (major depressive disorder): Status: Acute Code(s): F32.9 - Major depressive disorder, single episode, unspecified Assessment and Plan: Overall feels much improved. Feels stable for discharge from [facility]. No SI, no safety concerns. Plans to go to [facility], as she has visited, and likes it there. 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 Information provided regarding local training programs. (2) PTSD (post-traumatic stress disorder): Status: Acute Code(s): F43.10 - Post-traumatic stress disorder, unspecified Plan 1. Patient appears stable for discharge from [facility] at this time. 2. Refills of medications sent to pharmacy. 3. Patient to follow-up with outpatient providers going forward. Patient educated on: diagnosis, medication risk/benefits and therapeutic strategies Informed Consent: understands Reason for contiued partial hosp. stay Substantial Risk for: stable for discharge Certification I certify that partial hospital treatment is medically necessary due to the symptoms and problems resulting from the patient's mental illness and the failure to treat the patient at the partial hospital level of care would likely result in the patient requiring inpatient psychiatric care which could not be prevented at a less intensive level of care. Total time managing care of this patient today __20__ minutes. Discharge Plan Discharge Attending provider: Lam Wilcox Medications: New prazosin 1 mg capsule 1 mg PO BEDTIME Qty: 30 0RF Rx Instructions: hold for systolic bp <90 aripiprazole [Abilify] 10 mg tablet 10 mg PO BEDTIME Qty: 30 0RF bupropion HCl 150 mg tablet extended release 24 hr 150 mg PO QAM Qty: 30 0RF buspirone 10 mg tablet See Rx Instructions .ROUTE .COMPLEX Qty: 120 0RF Rx Instructions: 10 mg orally TID, and take 1 extra dose as needed for breakthrough anxiety gabapentin 800 mg tablet 800 mg PO TID Qty: 90 0RF hydroxyzine HCl 50 mg tablet 50 mg PO QID PRN (Reason: anxiety/insomnia) Qty: 120 0RF trazodone 50 mg tablet 50 mg PO BEDTIME PRN (Reason: sleep) Qty: 30 0RF Discontinued prazosin 1 mg Capsule 1 mg PO BEDTIME 30 Days Qty: 30 1RF Protocol: Hold for SBP< HOLD for SBP < : 90 aripiprazole 10 mg Tablet 10 mg PO BEDTIME 30 Days Qty: 30 1RF bupropion HCl 150 mg Tablet Extended Release 24 Hr 150 mg PO DAILY 30 Days Qty: 30 1RF buspirone 10 mg Tablet See Rx Instructions .ROUTE .COMPLEX 30 Days Qty: 120 1RF Rx Instructions: Take 1 tablet 3 times a day; may take 1 extra tablet daily as needed for breakthrough anxiety hydroxyzine HCl 50 mg Tablet 50 mg PO Q6H PRN (Reason: Anxiety/insomnia) 30 Days Qty: 90 1RF trazodone 50 mg Tablet 50 mg PO BEDTIME PRN (Reason: insomnia) 30 Days Qty: 30 1RF gabapentin 800 mg tablet 800 mg PO TID 30 Days Qty: 90 1RF No Action cyclobenzaprine 10 mg tablet 10 mg PO TID PRN (Reason: muscle spasm) 30 Days Qty: 30 1RF Stand Alone Forms: Patient Portal Discharge page Patient Education: Depression (DC)
== END 2023-01-29 23:59 | disposition home or self-care (01) ==
LOC: HO.PHPA 08:45
PROVIDERS: Visit Provider Psychiatry & Neurology Psychiatry
DX: F43.10 Post-traumatic stress disorder, unspecified (principal); F32.9 Major depressive disorder, single episode, unspecified
CPT/HCPCS: 90791; 90853

== ENCOUNTER 2023-02-18 09:23 | Outpatient (REF) | payer MEDICAID, SELFPAY ==
[2023-02-18 10:51] LABS: MANUAL DIFF FLAG NO
[2023-02-18 11:07] LABS: Basophils Absolute Auto 0.1 X10*3/uL (0.0-0.2); Basophils Percent Auto 0.7 % (0-2); Eosinophils Absolute Auto 0.1 X10*3/uL (0.0-0.4); Hematocrit 40.8 % (37.0-47.0); Hemoglobin 13.4 g/dl (12.0-16.0); Imm Gran Abs Auto 0.02 X10*3/uL (0.00-0.03); Imm Gran Pct Auto 0.3 % (0.0-0.4); Lymphocytes Absolute Auto 1.8 X10*3/uL (1.2-4.9); Lymphocytes Percent Auto 24.7 % (20-40); Mean Corpuscular HGB Conc 32.8 g/dl (31.0-35.0); Mean Corpuscular Hemoglobin 29.6 pg (27.0-33.0); Mean Corpuscular Volume 90.3 fL (80.0-98.0); Mean Platelet Volume 10.3 fL (9.4-12.3); Monocytes Absolute Auto 0.6 X10*3/uL (0.1-1.2); Monocytes Percent Auto 8.8 % (2-11); Neutrophils Absolute Auto 4.5 x10*3/uL (2.0-8.3); Neutrophils Percent Auto 63.5 % (45-73); Platelet Count 314 X10*3/uL (160-400); Red Blood Count 4.52 X10*6/uL (4.20-5.50); Red Cell Distribution Width 12.9 % (11.0-16.0); White Blood Count 7.1 X10*3/uL (4.8-10.8)
[2023-02-18 12:00] LABS: Alanine Aminotransferase 13 U/L (0-31); Alkaline Phosphatase 73 U/L (39-117); Anion Gap 15 (12-20); Aspartate Amino Transferase 16 U/L (5-31); Blood Urea Nitrogen 16 mg/dL (9-16); Carbon Dioxide 20 mmol/L (22-29); Chloride 108 mmol/L (96-108); Cholesterol 160 mg/dL; Estimated Glomerular Filt Rate > 60; Glucose Fasting 94 mg/dL (60-99); HDL Cholesterol 71 mg/dL; LDL Cholesterol Calculated 79 mg/dl; Potassium 4.5 mmol/L (3.3-5.1); Sodium 138 mmol/L (135-145); Total Protein 7.4 g/dL (6.5-8.0); Triglycerides 52 mg/dL
[2023-02-18 14:23] LABS: CT PCR NOT DETECTED (Not Detect.); NG PCR NOT DETECTED (Not Detect.)
== END 2023-02-18 09:24 | disposition home or self-care (01) ==
LOC: HO.10HDL 09:23
PROVIDERS: Visit Provider Internal Medicine
DX: Z00.00 Encounter for general adult medical examination without abnormal findings (principal); F43.12 Post-traumatic stress disorder, chronic; L40.8 Other psoriasis
CPT/HCPCS: 0353U; 80053; 80061; 85025

== ENCOUNTER 2023-03-26 13:12 | Emergency (ER) | payer MEDICAID, SELFPAY ==
[2023-03-26 13:16] VITALS: BP 134/83; PULSE 109; RESP 18; TEMP 36.8; O2SAT 98; BMI 37.8
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
[2023-03-26] MEDS: Fluorescein Sodium STRIP 1 STRIP EYE-BOTH (14:01)
[2023-03-26] MEDS: Tetracaine HCl/PF 0.5% Oph Sol 4 ML DROPS 1 DROP EYE-BOTH (14:01)
== END 2023-03-26 14:31 | disposition home or self-care (01) ==
PROVIDERS: Emergency Provider Student in an Organized Health Care Education/Training Program; PCP Internal Medicine
DX: H57.11 Ocular pain, right eye (principal)
CPT/HCPCS: 99283

== ENCOUNTER 2023-04-12 08:45 | Emergency (ER) | payer MEDICAID, SELFPAY ==
[2023-04-12 08:50] VITALS: BP 141/81; PULSE 85; RESP 16; TEMP 36.1; O2SAT 97; BMI 37.0
--- NOTE | 2023-04-12 09:16 | ED.GENADULT ---
HPI - General Adult General Chief complaint: General Medical Stated complaint: body pain Time Seen by Provider: 04/12/23 09:07 Source: patient Mode of arrival: ambulatory Limitations: no limitations History of Present Illness HPI narrative: 33-year-old female history of CMT, anxiety, depression, gabapentin to control her chronic pain of CMT patient came in for pain more to the lower extremities for the past 4-5 days. No history to trigger patient's symptoms. Related Data Previous Rx's Medication Instructions Recorded cyclobenzaprine 10 mg tablet 10 mg PO TID PRN muscle spasm 30 12/15/22 days #30 tabs aripiprazole 10 mg tablet (Abilify) 10 mg PO BEDTIME #30 tabs 01/29/23 bupropion HCl 150 mg 24 hr tablet, 150 mg PO QAM #30 tabs 01/29/23 extended release buspirone 10 mg tablet See Rx Instructions .Route 01/29/23 .COMPLEX #120 tabs gabapentin 800 mg tablet 800 mg PO TID #90 tabs 01/29/23 hydroxyzine HCl 50 mg tablet 50 mg PO QID PRN anxiety/insomnia 01/29/23 #120 tabs prazosin 1 mg capsule 1 mg PO BEDTIME #30 caps 01/29/23 trazodone 50 mg tablet 50 mg PO BEDTIME PRN sleep #30 tabs 01/29/23 sulfacetamide sodium 10 % eye drops 1 drp ophthalmic (eye) Q4H 5 days 03/26/23 #15 mL oxycodone 5 mg tablet 5 mg PO TID PRN pain #7 tabs 04/12/23 Allergies Allergy/AdvReac Type Severity Reaction Status Date / Time apple Allergy Throat Verified 01/05/23 11:46 itches Review of Systems Review of Systems: All other systems are reviewed and are negative Constitutional: Reports as per HPI and Reports no additional constitutional complaints Eyes: Reports as per HPI and Reports no additional eye complaints Reports system reviewed and no additional complaints, except as documented Cardiovascular: Reports as per HPI and Reports no additional cardiovascular complaints Respiratory: Reports as per HPI and Reports no additional respiratory complaints Gastrointestinal: Reports as per HPI and Reports no additional gastrointestinal complaints Genitourinary: Reports no additional female genitourinary complaints Musculoskeletal: Reports no additional musculoskeletal complaints Skin/Breast: Reports system reviewed and no additional complaints, except as docu Psychiatric: Reports no additional psychiatric complaints Endocrine: Reports no additional endocrine complaints Hematologic/Lymphatic: Reports no additional hematologic/lymphatic complaints Allergic/Immunologic: Reports no additional allergic/immunologic complaints Reports system reviewed and no additional complaints, except as documented and Reports Abnormal speech present [facility] Past Medical History Medical History Anxiety Charcot Leanna Tooth muscular atrophy Depression PTSD (post-traumatic stress disorder) Social History Social History Household Members: Family and Other Household Members Other:: Pt's son,sister and brother in law Housing: Apartment Patient Tobacco Use Status: Current someday Tobacco user Tobacco use type: Cigarette Second Hand Smoke Exposure: No Substance Use Type: Marijuana service: No Sexual orientation: Straight/Heterosexual Physical Exam ED Vital Signs: Vital Signs - 24 hr 04/12/23 08:50 Temperature 96.9 F Pulse Rate 85 Respiratory Rate 16 Blood Pressure 141/81 H Pulse Oximetry 97 Oxygen Delivery Method Room Air BMI result Body Mass Index 37.0 Vital signs have been reviewed as appeared to be correct. Blood pressure normal. Heart rate normal. Respiration rate normal. Temperature normal. Oxygen saturation normal. Appearance: Alert. Oriented X3. No acute distress. Head: Normal external exam. Normocephalic. Atraumatic. No Faulkner signs noted. No raccoon eyes noted Eyes: PERRLA. EOMI. Conjunctiva and sclera normal. Eyelids normal. ENT: TM's Normal. Pharynx normal. Uvula midline. Moist mucous membranes. No trismus noted. No drooling noted. No muffled voice noted. Neck: Normal inspection. Neck supple. FROM. No adenopathy. Thyroid Normal. No meningeal signs. No neck mass noted. CVS: Normal heart rate and rhythm. Heart sound normal. No murmurs noted. Pulses normal throughout. Respiratory: No respiratory distress. Painless inspiration. Breath sounds normal. No wheezes/rales/rhonchi noted. Chest nontender. No accessory muscle usage noted or decreased air movement noted. Abdomen: Soft and nontender. Bowel sounds normal in all 4 quadrants. No distention noted. No organomegaly noted. No visible injury noted. Back: No CVA tenderness. Full range of motion noted. Skin: Skin warm and dry. Normal skin color. Normal skin turgor. No rashes/lesions/lacerations noted. Extremities: No lower extremity edema. Extremities exhibit normal range of motion. Extremities nontender. Neuro: Oriented X 3. Cranial nerve exam: II-XII are grossly intact No motor deficit. No sensory deficit. Reflexes normal. Course Course Course Narrative: A 33-year-old female with history of Charcot Leanna tooth disease and chronic pain that patient is taking gabapentin to control her pain came in for exacerbation of general body ache. Which she required usually narcotic to control her symptoms. Medical Decision Making Differential Diagnosis Differential Diagnoses: The differential diagnosis associated with the presentation includes (UTI, Charcot Leanna tooth disease exacerbation.) Lab Data MDM Lab Attestation statement: I reviewed the patient's lab results. Discharge Plan Discharge Clinical Impression: Charcot Leanna Tooth muscular atrophy, Generalized body aches Patient Disposition: Home, Self-Care Instructions: Peripheral Neuropathy (ED) Prescriptions: New oxycodone 5 mg tablet 5 mg PO TID PRN (Reason: pain) Qty: 7 0RF Rx Instructions: Partial Fill upon patient request. No Action cyclobenzaprine 10 mg tablet 10 mg PO TID PRN (Reason: muscle spasm) 30 Days Qty: 30 1RF prazosin 1 mg capsule 1 mg PO BEDTIME Qty: 30 0RF Rx Instructions: hold for systolic bp <90 aripiprazole [Abilify] 10 mg tablet 10 mg PO BEDTIME Qty: 30 0RF bupropion HCl 150 mg tablet extended release 24 hr 150 mg PO QAM Qty: 30 0RF buspirone 10 mg tablet See Rx Instructions .ROUTE .COMPLEX Qty: 120 0RF Rx Instructions: 10 mg orally TID, and take 1 extra dose as needed for breakthrough anxiety gabapentin 800 mg tablet 800 mg PO TID Qty: 90 0RF hydroxyzine HCl 50 mg tablet 50 mg PO QID PRN (Reason: anxiety/insomnia) Qty: 120 0RF trazodone 50 mg tablet 50 mg PO BEDTIME PRN (Reason: sleep) Qty: 30 0RF sulfacetamide sodium 10 % drops 1 drp ophthalmic (eye) Q4H 5 Days Qty: 15 0RF Referrals: Merly Carrington MD [Primary Care Provider] -
[2023-04-12 09:18] VITALS: BP 108/70; PULSE 81; RESP 16; TEMP 36.8; O2SAT 100
[2023-04-12 09:28] VITALS: RESP 16
[2023-04-12] MEDS: Morphine Sulfate 2 MG/ML CARTRIDGE IM (09:28)
[2023-04-12] MEDS: Ketorolac Tromethamine 30 MG/ML VIAL IM (09:29)
[2023-04-12] MEDS: Cyclobenzaprine HCl 10 MG TABLET PO (09:36)
[2023-04-12 11:02] LABS: Appearance Urine Clear; Color Urine Yellow; Glucose Urine UA Negative (Negative); Leukocyte Esterase Urine Small (1+) (Negative); Nitrite Urine Negative (Negative); PH 7.5 (5.0-9.0); Specific Gravity - Urine 1.025 (1.005-1.025); UMIC TRIGGER UACC YES; Urine Blood Negative (Negative); Urine Ketones Negative (Negative); Urine Protein Negative (Neg-Trace)
[2023-04-12 11:21] LABS: Bacteria Urine Trace (None Seen); Hyaline Casts Urine 0-2 /LPF (0-2); RBC Urine 0-2 /HPF (0-2); UACC Culture Trigger YES; WBC Urine 0-5 /HPF (0-5)
[2023-04-12 12:00] VITALS: BP 104/63; PULSE 77; RESP 16; TEMP 36.7; O2SAT 100
[2023-04-12 12:09] LABS: UPreg QC Valid YES; Urine Pregnancy NEGATIVE (NEGATIVE)
[2023-04-12] MEDS: oxyCODONE HCl Immed Release 5 MG TABLET PO (12:14)
== END 2023-04-12 12:45 | disposition home or self-care (01) ==
PROVIDERS: Emergency Provider Emergency Medicine; PCP Internal Medicine
DX: M79.10 Myalgia, unspecified site (principal); M79.605 Pain in left leg; M79.604 Pain in right leg; F33.1 Major depressive disorder, recurrent, moderate; F41.9 Anxiety disorder, unspecified; G90.09 Other idiopathic peripheral autonomic neuropathy; F17.210 Nicotine dependence, cigarettes, uncomplicated; Z71.6 Tobacco abuse counseling; Z79.899 Other long term (current) drug therapy
CPT/HCPCS: 81001; 81003; 81025; 87086; 96372; 99284; J1885; J2270

== ENCOUNTER 2023-05-05 10:57 | Outpatient (REF) | payer MEDICAID, SELFPAY | END 2023-05-05 10:58 | disposition home or self-care (01) | LOC: HO.LNP 10:57 | PROVIDERS: PCP Internal Medicine; Visit Provider Obstetrics & Gynecology | DX: R87.619 Unspecified abnormal cytological findings in specimens from cervix uteri (principal); N76.0 Acute vaginitis; B96.89 Other specified bacterial agents as the cause of diseases classified elsewhere | CPT/HCPCS: 99202 ==

== ENCOUNTER 2023-05-05 11:39 | Outpatient (REF) | payer MEDICAID, SELFPAY ==
[2023-05-05 14:36] LABS: CT PCR NOT DETECTED (Not Detect.); NG PCR NOT DETECTED (Not Detect.)
[2023-05-06 04:49] LABS: Syphilis Screen Nonreactive (Nonreactive)
[2023-05-06 05:08] LABS: HBsAGNum1 0.27 S/CO (0.00-0.99); HIV AB/AG Nonreactive (Nonreactive); HIV Num 1 0.08 S/CO (0.00-0.99); Hepatitis B Surface Antigen Negative (Negative); ~HepC Num1 0.09 S/CO (0.00-0.79); ~Hepatitis C Antibody Nonreactive (Nonreactive)
[2023-05-06 13:01] LABS: BV Int Neg Control Negative (Negative)
[2023-05-06 13:02] LABS: BV Int Pos Control Positive (Positive)
== END 2023-05-05 11:40 | disposition home or self-care (01) ==
LOC: HO.LAB 11:39
PROVIDERS: PCP Internal Medicine; Visit Provider Obstetrics & Gynecology
DX: N76.0 Acute vaginitis (principal); B96.89 Other specified bacterial agents as the cause of diseases classified elsewhere
CPT/HCPCS: 0353U; 36415; 86780; 86803; 87340; 87389; 87480; 87510; 87660

== ENCOUNTER 2023-05-19 21:10 | Emergency (ER) | payer MEDICAID, SELFPAY ==
--- NOTE | ~2023-05-19 | XR_ITS ---
EXAMINATION: XR ANKLE, LEFT CLINICAL INFORMATION: Left ankle injury. COMPARISON: None available. TECHNIQUE: AP, lateral, and mortise views of the left ankle. FINDINGS: There is lateral ankle soft tissue swelling and possible hematoma. A well-corticated 5 mm bone fragment is seen inferior to the lateral malleolus likely representing old injury. Ankle mortise is maintained. The talar dome is intact. No acute displaced fracture or dislocation. XR/XR ankle LT 2V IMPRESSION: Lateral ankle soft tissue swelling and possible hematoma. No acute bony abnormality.
[2023-05-19 21:16] VITALS: BP 118/60; PULSE 90; O2SAT 99
[2023-05-19 21:17] VITALS: BP 114/77; PULSE 77; RESP 18; TEMP 36; O2SAT 99; BMI 38.2
--- NOTE | 2023-05-19 23:51 | ED_ITS ---
HPI - Extremity Injury (Lower) General Chief Complaint: Extremity Injury, Lower Stated Complaint: LEFT ANKLE PAIN, FALL Time Seen by Provider: 05/19/23 23:04 Source: patient Mode of arrival: ambulatory Limitations: no limitations History of Present Illness HPI Narrative: Patient is a 33-year-old female presents emergency department for evaluation of traumatic left ankle pain. She reports approximately 1 week ago she tripped down a few stairs twisting her left ankle. She had some mild pain but was able to continue ambulating without difficulty. However, today she was walking down the stairs and she again tripped. Developed significant swelling to the left lateral ankle with severe pain. She states that she heard a crack when this occurred, she has been unable to walk or weightbear. 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 She denies numbness or tingling to the foot and/or digits. There is no redness or warmth. Denies fevers or chills. Related Data Previous Rx's Medication Instructions Recorded cyclobenzaprine 10 mg tablet 10 mg PO TID PRN muscle spasm 30 12/15/22 days #30 tabs aripiprazole 10 mg tablet (Abilify) 10 mg PO BEDTIME #30 tabs 01/29/23 bupropion HCl 150 mg 24 hr tablet, 150 mg PO QAM #30 tabs 01/29/23 extended release buspirone 10 mg tablet See Rx Instructions .Route 01/29/23 .COMPLEX #120 tabs gabapentin 800 mg tablet 800 mg PO TID #90 tabs 01/29/23 hydroxyzine HCl 50 mg tablet 50 mg PO QID PRN anxiety/insomnia 01/29/23 #120 tabs prazosin 1 mg capsule 1 mg PO BEDTIME #30 caps 01/29/23 trazodone 50 mg tablet 50 mg PO BEDTIME PRN sleep #30 tabs 01/29/23 metronidazole 0.75 % (37.5 mg/5 1 appful vaginal BEDTIME 5 days 05/05/23 gram) vaginal gel #37.5 grams acetaminophen 500 mg tablet 1,000 mg PO Q6H PRN pain #20 tabs 05/20/23 (Tylenol Extra Strength) ibuprofen 600 mg tablet 600 mg PO Q8H PRN pain #30 tabs 05/20/23 oxycodone 5 mg tablet 5 mg PO Q6H PRN pain #14 tabs 05/20/23 Allergies Allergy/AdvReac Type Severity Reaction Status Date / Time apple Allergy Throat Verified 05/05/23 11:15 itches Review of Systems Review of Systems: Yes all other systems are reviewed and are negative [facility] Past Medical History Attestation statement: The following information was validated with the patient. Source: old records reviewed Medical History Anxiety Charcot Leanna Tooth muscular atrophy Depression PTSD (post-traumatic stress disorder) Family History Family History Mother Colon cancer Social History Social History Household Members: Family and Other Household Members Other:: Pt's son,sister and brother in law Housing: Apartment Patient Tobacco Use Status: Current someday Tobacco user Tobacco use type: Cigarette Second Hand Smoke Exposure: No Substance Use Type: Marijuana Advance Directives: No Advance Directives Information Provided: No service: No Sexual orientation: Straight/Heterosexual Physical Exam Vital Signs: Vital Signs: Last Vital Signs Temp 96.8 F 05/19/23 21:17 Pulse 77 05/19/23 21:17 Resp 18 05/19/23 21:17 BP 114/77 05/19/23 21:17 Pulse Ox 99 05/19/23 21:17 O2 Del Method Room Air 05/19/23 21:17 BMI result Body Mass Index 38.2 Course Reevaluation(s) Reevaluation #1: Have reviewed XR imaging, interpretation is no acute bony abnormality. However there is a well corticated 5 mm bone fragment inferior to the lateral malleolus per radiology report likely representing an old injury. I suspect this is in relation to the fall she sustained earlier this week, concern for acute lateral malleolus fracture. Patient placed in posterior short-leg and stirrup splint provided with crutches and instructions on usage given. Acetaminophen/ibuprofen as needed for pain in addition to short course of oxycodone for severe pain as needed, advised precautions with use. Advised outpatient follow-up with Orthopedics. Verbalizes understanding. Time: 23:55 Medical Decision Making Medical Decision Making MDM Narrative: Patient is a 33-year-old female with past medical history of PTSD, depression, Obiznib-Vvvbg-Fvvur muscular atrophy presenting to emergency department for evaluation of traumatic left ankle pain. Patient is unable to weightbear. Has decreased AROM to the left ankle. Extremities neurovascularly intact distally at this time. Will obtain XR imaging to evaluate further for fracture versus dislocation versus is sprain Differential Diagnosis Differential Diagnoses: The differential diagnosis associated with the presentation includes (Fracture, dislocation, sprain, septic arthritis) Independent Interpretation I performed an independent interpretation of an: Plain X-Ray (I have interpreted XR imaging, based on history and physical examination I suspect acute lateral malleolus fracture) Radiology Impression Discussion of test interpretation with radiology: I have reviewed the radiologist's reading. Radiologist Impression: XR/XR ankle LT 2V IMPRESSION: Lateral ankle soft tissue swelling and possible hematoma. No acute bony abnormality. Independent Historian Clinical information obtained from an independent historian. History obtained from or confirmed by: Friend Prescription Management I considered prescription management with: Pain Medication Discharge Plan Discharge Clinical Impression: Fracture of lateral malleolus of left fibula Patient Disposition: Home, Self-Care Instructions: Ankle Fracture (ED) Additional Instructions: As discussed, the x-ray imaging of your left ankle is concerning for a fracture. You have been placed in the splint, this should remain in place until you are evaluated by orthopedics. Please do not walk on this ankle. If you develop severe worsening pain, numbness or tingling to the foot, inability to feel the foot this needs to be re-evaluated right away. You can take ibuprofen 200 mg, 3 tablets (600mg) every 6-8 hours as needed for pain, in addition to Tylenol 500 mg, 2 tablets (1,000mg) every 4-6 hours as needed for pain, but not to exceed 3 doses daily (3,000mg).? I have sent a prescription for oxycodone to the pharmacy to use as needed for severe pain unrelieved by Tylenol/ibuprofen. This is a narcotic medication, it can be addictive, it may make you drowsy. You should not drive, drink alcohol, or work while taking this medication. Prescriptions: New oxycodone 5 mg tablet 5 mg PO Q6H PRN (Reason: pain) Qty: 14 0RF Rx Instructions: Partial Fill upon patient request. ibuprofen 600 mg tablet 600 mg PO Q8H PRN (Reason: pain) Qty: 30 0RF acetaminophen [Tylenol Extra Strength] 500 mg tablet 1,000 mg PO Q6H PRN (Reason: pain) Qty: 20 0RF No Action cyclobenzaprine 10 mg tablet 10 mg PO TID PRN (Reason: muscle spasm) 30 Days Qty: 30 1RF prazosin 1 mg capsule 1 mg PO BEDTIME Qty: 30 0RF Rx Instructions: hold for systolic bp <90 aripiprazole [Abilify] 10 mg tablet 10 mg PO BEDTIME Qty: 30 0RF bupropion HCl 150 mg tablet extended release 24 hr 150 mg PO QAM Qty: 30 0RF buspirone 10 mg tablet See Rx Instructions .ROUTE .COMPLEX Qty: 120 0RF Rx Instructions: 10 mg orally TID, and take 1 extra dose as needed for breakthrough anxiety gabapentin 800 mg tablet 800 mg PO TID Qty: 90 0RF hydroxyzine HCl 50 mg tablet 50 mg PO QID PRN (Reason: anxiety/insomnia) Qty: 120 0RF trazodone 50 mg tablet 50 mg PO BEDTIME PRN (Reason: sleep) Qty: 30 0RF metronidazole 0.75 % (37.5mg/5 gram) gel 1 appful vaginal BEDTIME 5 Days Qty: 37.5 0RF Referrals: Anabell Torres PA-C [Physician Rivet Tapping Machine Operator] - Interventions: ED Discharge Assessment Last Done: 05/20/23 00:53 Discharge Date/Time: 05/20/23 00:53
--- NOTE | 2023-05-20 01:03 | MHC.EDTECH ---
Addendum entered by Sharmaine Barbosa 05/20/23 01:05: Crutches were given,patient walked without any difficulty. Original Note: This tech applied a posterior short leg and a sugar tounge to left leg. Patient tolerated procedure well. Placement checked by Kenny BRUCE. MARY aware
== END 2023-05-20 00:53 | disposition home or self-care (01) ==
PROVIDERS: Emergency Provider Emergency Medicine; PCP Internal Medicine
DX: S82.62XA Displaced fracture of lateral malleolus of left fibula, initial encounter for closed fracture (principal); M25.572 Pain in left ankle and joints of left foot; W10.9XXA Fall (on) (from) unspecified stairs and steps, initial encounter; Y93.9 Activity, unspecified; Y92.9 Unspecified place or not applicable; Y99.9 Unspecified external cause status; Z79.899 Other long term (current) drug therapy; F17.210 Nicotine dependence, cigarettes, uncomplicated; Z71.6 Tobacco abuse counseling
CPT/HCPCS: 29505; 29515; 73600; 99282; 99284

== ENCOUNTER → 2023-05-22 09:16 | Outpatient (BNVA) | payer MEDICAID, SELFPAY | PROVIDERS: PCP Internal Medicine; Visit Provider Physician Assistant | DX: S93.402A Sprain of unspecified ligament of left ankle, initial encounter (principal) | CPT/HCPCS: 99202 ==

== ENCOUNTER 2023-05-28 13:36 | Outpatient (REF) | payer MEDICAID, SELFPAY | END 2023-05-28 13:37 | disposition home or self-care (01) | LOC: HO.LNP 13:36 | PROVIDERS: PCP Internal Medicine; Visit Provider Obstetrics & Gynecology | DX: R87.619 Unspecified abnormal cytological findings in specimens from cervix uteri (principal) | CPT/HCPCS: 57454; 58100; 81025; 88305 ==

== ENCOUNTER 2023-07-02 09:20 | Outpatient (AMB) | payer MEDICAID, SELFPAY ==
[2023-07-02 09:22] VITALS: BMI 37.4
--- NOTE | 2023-07-02 09:22 | A.OFFVIS_ITS ---
Intake Vital Signs 07/02/23 09:22 Height 5 ft 1 in Weight 198 lb BMI 37.4 Intake Visit Reasons: OV-LT Ankle acute lateral malleolus fx Intake Note: Cheyanne is a 33 year old female who presents today for a follow up of left ankle, DOI approximately 1 week prior to 05/19/23. Patient reports she missed her PT appointment and was not able to start. Continuos to wear boot. States she is limited ROM with some improvement. Patient brought her lace up brace with her today. Allergies apple Allergy (Verified 05/28/23 14:01) Throat itches HPI OV-LT Ankle acute lateral malleolus fx HPI Details 33-year-old female who returns to the office today for a follow-up of left lateral malleolus fracture, about 1 week prior 05/19/23. She states she has improvement in her swelling, pain and ROM but she continues to have limited ROM in her ankle. Her pain is aggravated in the morning and limps while ambulating which eventually gets better. She reports she missed her physical therapy appointment . She continues to wear the boot as instructed. She finds relief with her brace. She has a history of CMT disease [facility] Medical History Anxiety Charcot Leanna Tooth muscular atrophy Depression PTSD (post-traumatic stress disorder) Family History Mother Colon cancer Social History Household Members: Family and Other Household Members Other:: Pt's son,sister and brother in law Housing: Apartment Patient Tobacco Use Status: Current someday Tobacco user Tobacco use type: Cigarette Second Hand Smoke Exposure: No Substance Use Type: Marijuana service: No Sexual orientation: Straight/Heterosexual Female Reproductive History Menstrual Age of Menarche: 13 Review of Systems Const All systems reviewed & are unremarkable except as noted in HPI and below Physical Exam Vital Signs: BMI result Body Mass Index 37.4 Extrem Other: Left ankle normal to inspection with diffuse swelling over the lateral malleolus with tenderness along the soft tissues. Her foot is in chronically in a plantar flexed position. No discomfort along the posterior aspect of the a nkle, no deformity along the Achilles tendon, negative Mcmullen?s. No pain along the syndesmosis or anterior tibia. No laxity, NVI. Assessment & Plan Assessment & Plan (1) Left ankle sprain: Code(s): S93.402A - Sprain of unspecified ligament of left ankle, initial encounter Plan She was transitioned to her lace up ankle brace and she will call physical therapy to reschedule her appointment. I did put an updated order for this. I did also print out some home exercises for her to work on in the meantime. She does have an appointment with her neurologist tomorrow for her CMT disorder. I did provide her with a note today for her housing situation stating that she should avoid stair use due to her chronic weakness. She will follow-up as needed. Orders: Orders PT Evaluation and Treatment Today S93.402A - Sprain of unspecified ligament of left ankle, initial encounter Patient Instructions: Scribed for Milady Duffy PA-C, by Candelario Galloway medical investigator, on 07/02/2023 at 10:30 AM EST. I, Milady Duffy PA-C, have personally reviewed and agree with the information entered by the scribe. Coding Level of Care Code Est Pt Level 3 (04914) Diagnoses Left ankle sprain S93.402A
== END 2023-07-02 09:58 | disposition home or self-care (01) ==
PROVIDERS: PCP Internal Medicine; Visit Provider Physician Assistant
DX: S93.402A Sprain of unspecified ligament of left ankle, initial encounter (principal)
CPT/HCPCS: 99213

== ENCOUNTER → 2023-07-02 09:20 | Outpatient (BNVA) | payer MEDICAID, SELFPAY | PROVIDERS: PCP Internal Medicine; Visit Provider Physician Assistant | DX: R87.619 Unspecified abnormal cytological findings in specimens from cervix uteri (principal); S93.402D Sprain of unspecified ligament of left ankle, subsequent encounter | CPT/HCPCS: 99212; 99213 ==

== ENCOUNTER 2023-07-02 10:24 | Outpatient (AMB) | payer MEDICAID, SELFPAY ==
--- NOTE | 2023-07-02 10:25 | MHC.OFFVIS ---
Intake Vital Signs 07/02/23 10:27 Height 5 ft 1 in Weight 196 lb 3.382 oz BMI 37.1 BP 110/68 Intake Visit Reasons: Colpo/EMB results Compensation Analyst Required: No Information Interpreted: non-clinical & clinical Accompanied by: Self / Same As Patient Allergies apple Allergy (Verified 07/02/23 10:28) Throat itches Is last menstrual period known: Yes HPI HPI Comments History of Present Illness Details Presenting post colpo/ECC/EMB for follow-up after atypical endocervical cells on Pap smear. The patient is doing well with no complaints. The pathology showed the following: A. Endocervix, curettage: Endocervical glandular and squamous mucosa with marked inflammation and focal reactive changes; negative for dysplasia. B. Endometrium, biopsy: Benign proliferative endometrium; no atypia or carcinoma. C. Cervix, 1:00, biopsy: Squamous and endocervical glandular mucosa with marked inflammation and reactive changes; negative for dysplasia. D. Cervix, 5:00, biopsy: Squamous and endocervical glandular mucosa with marked inflammation and reactive changes; negative for dysplasia. E. Cervix, 6:00, biopsy: Squamous and endocervical glandular mucosa with marked inflammation and reactive changes; negative for dysplasia. F. Cervix, 11:00, biopsy: Squamous and endocervical glandular mucosa with marked inflammation and reactive changes; negative for dysplasia. D. Cervix, 12:00, biopsy: Squamous and endocervical glandular mucosa with marked inflammation and reactive changes; negative for dysplasia. [facility] Medical History Anxiety Charcot Leanna Tooth muscular atrophy Depression PTSD (post-traumatic stress disorder) Family History Mother Colon cancer Social History Household Members: Family and Other Household Members Other:: Pt's son,sister and brother in law Housing: Apartment Patient Tobacco Use Status: Current someday Tobacco user Tobacco use type: Cigarette Second Hand Smoke Exposure: No Substance Use Type: Marijuana service: No Sexual orientation: Straight/Heterosexual Female Reproductive History Menstrual Age of Menarche: 13 Review of Systems Const All systems reviewed & are unremarkable except as noted in HPI and below Reports as per HPI and Reports no additional complaints GI Reports no additional complaints Reports no additional complaints Physical Exam Vital Signs: Last Vital Signs BP 110/68 07/02/23 10:27 BMI result Body Mass Index 37.1 Assessment & Plan Assessment & Plan (1) Atypical endocervical cells on Pap smear: Code(s): R87.619 - Unspecified abnormal cytological findings in specimens from cervix uteri Plan: Discussed with the patient the pathology results of the colposcopy biopsies / endocervical curettage and EMB (negative). Discussed with the patient the sensitivity specificity, positive and negative predictive value in detecting cervical cancer in addition discussed the regression, persistence and progression rates. Per ASCCP guidelines, Recommended co-testing in 12 months, if cytology and or HPV are abnormal will proceed was colposcopy biopsy and endocervical curettage. Instructions given to the patient to schedule a co test appointment in 1 year. All questions answered the patient verbalized understanding. Coding Level of Care Code Est Pt Level 3 (48910) Diagnoses Atypical endocervical cells on Pap smear R87.619
--- OUTSIDE RECORDS SUMMARY | 2023-07-02 10:26 | XMS_ITS | Continuity of Care Document ---
Author Name Unknown Organization [facility] Address [address] [place] [id number]- Care Team Providers Care Condenser Tester Name Role Phone Not on Staff, PCP Primary Care Physician Unavail able Encounter [facility] Date(s): 11/12/22 - 11/12/[address] [address]- Discharge Disposition: A-D/C Walkout Attending Physician: Not on Staff, Attending MD Admitting Physician: Not on Staff, Admitting MD Referring Physician: Not on Staff, Referring MD Allergies, Adverse Reactions, Alerts No Known Medication Allergies Medications Abilify 5 mg oral tablet 5 mg, 1, tablet, By Mouth, Daily, # 30 tablet, Refills 0, Maintenance, 11/12/22 7:53:00 EST, Partial fill upon patient request if the prescription is for a schedule II opioid drug. Start Date: 11/12/22 Status: Ordered Gabapentin = 800 mg, By Mouth, 3 times a day, 0 Refills, Maintenance, 11/12/22 7:53:00 EST, Partial fill upon patient request if the prescription is for a schedule II opioid drug. Start Date: 11/12/22 Status: Ordered Wellbutrin = 150 mg, By Mouth, Daily, 0 Refills, Maintenance, 11/12/22 7:53:00 EST, Partial fill upon patient request if the prescription is for a schedule II opioid drug. Start Date: 11/12/22 Status: Ordered Vital Signs Most recent to oldest [Reference Range]: 1 2 3 Height 155 cm (11/12/22 7:49 AM) 155 cm (11/12/22 7:37 AM) Weight 80 kg (11/12/22 7:49 AM) Oxygen Saturation [94-100 %] 100 % (11/12/22 9:29 AM) 98 % (11/12/22 7:37 AM) 98 % (11/12/22 7:25 AM) Pulse Rate [55-90 bpm] 77 bpm (11/12/22 9:29 AM) 85 bpm (11/12/22 7:37 AM) 112 bpm *H* (11/12/22 7:25 AM) Blood Pressure [90-138/55-84 mm Hg] 111/68mm Hg (11/12/22 9:29 AM) 111/71mm Hg (11/12/22 7:37 AM) Respiratory Rate [16-30 br/min] 16 br/min (11/12/22 9:29 AM) 20 br/min (11/12/22 7:37 AM) Temperature [96.8-100.4 DegF] 98.3 DegF (11/12/22 9:29 AM) 98.4 DegF (11/12/22 7:37 AM) Mode of Delivery (Oxygen) Room air (11/12/22 9:29 AM) Room air (11/12/22 7:37 AM) Room air (11/12/22 7:25 AM) Blood pressure sites Arm, right (11/12/22 9:29 AM) Arm, left (11/12/22 7:37 AM) Temperature Route Oral (11/12/22 9:29 AM) Oral (11/12/22 7:37 AM) Dry Weight 80 kg (11/12/22 7:49 AM) 80 kg (11/12/22 7:37 AM) Dry Weight Obtained Via Patient/family s tated (11/12/22 7:37 AM) Patient Care team information Care Team Personnel Name: Not on Staff, PCP Position: S Physician (General Medicine) Member Role: PCP
--- OUTSIDE RECORDS SUMMARY | 2023-07-02 10:26 | XMS_ITS | Continuity of Care Document ---
Author Name Unknown Organization [facility] Address [address], [address] [place] [id number]- Care Team Providers Care Machine Operator Name Role Phone Charissa LUBIN, Merly Freeman Primary Care Physician Encounter [facility] R [id number] Date(s): 04/09/23 - 05/09/23 [facility] [address], [address] [place] [id number] Attending Physician: Camille Borges Admitting Physician: Camille Borges Referring Physician: AdmCamille plummer Allergies, Adverse Reactions, Alerts No Known Medication Allergies Medications Abilify 5 mg oral tablet 5 mg, 1, tablet, By Mouth, Daily, # 30 tablet, Refills 0, Maintenance, 11/12/22 7:53:00 EST, Partial fill upon patient request if the prescription is for a schedule II opioid drug. Start Date: 11/12/22 Status: Ordered Aerochamber See Instructions, # 1 kit, Maintenance, Use with inhaler, 01/20/23 16:10:00 EST, Supply, 155, cm, 01/20/23 15:25:00 EST, Height, 80, kg, 11/12/22 7:49:00 EST, Dry Weight Start Date: 01/20/23 Status: Ordered albuterol CFC free 90 mcg/inh inhalation aerosol See Instructions, PRN, 2 puffs by mouth every 4-6 hours as needed for wheezing/chest tightness/shortness of breath, # 8.5 Gm, Refills 0, Tot. Refills 0, Maintenance, 01/20/23 16:10:00 EST, Instructions Replace Required Details Aerosol, Route to Pharma... Start Date: 01/20/23 Status: Ordered Gabapentin = 800 mg, By [...] opioid drug. Start Date: 11/12/22 Status: Ordered Patient Care team information Care Team Personnel Name: Merly Carrington MD Position: [facility] Outreach Member Role: PCP Address: Address: [address] [place] [address] [address] [place] [address]
--- OUTSIDE RECORDS SUMMARY | 2023-07-02 10:26 | XMS_ITS | Continuity of Care Document ---
Author Name Unknown Organization [facility] Address [address], [address] [place] [id number] Care Team Providers Care Tea Plantation Worker Name Role Phone Merly Carrington MD Primary Care Physician [id number] Date(s): 03/16/23 - 05/09/23 [facility] [address], [address] [place] [id number]- Attending Physician: Gutierrez Cabrera MD Admitting Physician: Gutierrez Cabrera MD Referring Physician: Merly Carrington MD Allergies, Adverse Reactions, Alerts No Known [...] Team Personnel Name: Merly Carrington MD Position: [facility] Outreach Member Role: PCP Address: Address: [address] [place] [address] [address] Mer[place] [address]
--- OUTSIDE RECORDS SUMMARY | 2023-07-02 10:26 | XMS_ITS | Continuity of Care Document ---
Author Name Unknown Organization [facility] Address [address] [place] [address]- Care Team Providers Care Melt Down Furnace Operator Name Role Phone Not on Staff, PCP Primary Care Physician Unavail able Encounter [facility] [place] Date(s): 01/20/23 - 02/19/23 [facility] [address] [place] [address]- Attending Physician: Camille Borges Admitting Physician: Camille Borges Referring Physician: Camille Borges Allergies, Adverse Reactions, Alerts No Known Medication [...]
[2023-07-02 10:27] VITALS: BP 110/68; BMI 37.1
== END 2023-07-02 14:40 | disposition home or self-care (01) ==
LOC: HO.HWS 10:24
PROVIDERS: PCP Internal Medicine; Visit Provider Obstetrics & Gynecology
DX: R87.619 Unspecified abnormal cytological findings in specimens from cervix uteri (principal)
CPT/HCPCS: 99213

== ENCOUNTER 2023-08-19 08:53 | Outpatient (AMB) | payer MEDICAID, SELFPAY ==
[2023-08-19 09:00] VITALS: BMI 40.2
--- NOTE | 2023-08-19 09:00 | A.OFFVIS_ITS ---
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: Stringer Machine Tender Present (Mari) Allergies apple Allergy (Verified 08/19/23 09:02) Throat itches Is last menstrual period known: No Post menopausal: No HPI HPI Comments History of Present Illness Details The patient is presenting complaining of vaginal discharge associated with foul odor, no other associated symptoms, vaginal itching or any other complaint [facility] Medical History PTSD (post-traumatic stress disorder) Anxiety Depression Charcot Leanna Tooth muscular atrophy Family History Mother Colon cancer Social History Household Members: Family and Other Household Members Other:: Pt's son,sister and brother in law Housing: Apartment Patient Tobacco Use Status: Current someday Tobacco user Tobacco use type: Cigarette Second Hand Smoke Exposure: No Substance Use Type: Marijuana service: No Sexual orientation: Straight/Heterosexual Female Reproductive History Menstrual Age of Menarche: 13 Date of last menstrual period: 08/13/23 control method: none Total pregnancies: 2 Full term: 2 Number of Living Children: 2 Review of Systems Const All systems reviewed & are unremarkable except as noted in HPI and below Physical Exam Vital Signs: BMI result Body Mass Index 40.2 General: Yes no CVA tenderness External Female Exam: normal external appearance and normal appearance of the urethra Speculum Exam - Vagina: normal appearance of the vagina, normal palpation, no lesions and no masses Speculum Exam - Cervix: normal appearance of the cervix, normal palpation, no lesions, no masses and nontender Bimanual exam- vagina & uterus: normal bimanual exam, normal palpation, uterine size normal, normal palpation, uterine shape normal, No Cervical tenderness present and non-tender Bimanual Exam- Adnexa, other: normal adnexae Back/Spine/Pelvis Back: no CVA tenderness Assessment & Plan Assessment & Plan (1) Bacterial vaginosis: Code(s): N76.0 - Acute vaginitis; B96.89 - Other specified bacterial agents as the cause of diseases classified elsewhere Plan: GC and chlamydia cultures with BV panel taken. Per CDC recommendation, will screen for STI, HepBs Ag, HIV, RPR, Hep C Ab ordered. Will treat with Flagyl 500 mg p.o. b.i.d. x 7 days, Instructions given to the patient to refrain from sexual activity or to use condoms consistently and correctly during the BV treatment regimen, not to douch, it might increase the risk for relapse, and to call if symptoms persist or recur. Orders: Orders Bacterial Vaginosis Panel Today B96.89 - Other specified bacterial agents as the cause of diseases classified elsewhere, N76.0 - Acute vaginitis Hepatitis C Antibody Today Z20.2 - Contact with and (suspected) exposure to infections with a predominantly sexual mode of transmission CT NG by PCR Today B96.89 - Other specified bacterial agents as the cause of diseases classified elsewhere, N76.0 - Acute vaginitis Hepatitis B Surface Antigen Today Z20.2 - Contact with and (suspected) exposure to infections with a predominantly sexual mode of transmission HIV Ab/Ag Today Z20.2 - Contact with and (suspected) exposure to infections with a predominantly sexual mode of transmission Syphilis Screen Today Z20.2 - Contact with and (suspected) exposure to infections with a predominantly sexual mode of transmission Medications: New metronidazole 500 mg PO BID 14 tabs 0RF 7 days Coding Level of Care Code Est Pt Level 3 (30265) Diagnoses Bacterial vaginosis N76.0; B96.89
== END 2023-08-19 09:13 | disposition home or self-care (01) ==
PROVIDERS: PCP Internal Medicine; Visit Provider Obstetrics & Gynecology
DX: N76.0 Acute vaginitis (principal); B96.89 Other specified bacterial agents as the cause of diseases classified elsewhere
CPT/HCPCS: 99213

== ENCOUNTER 2023-08-19 08:53 | Outpatient (REF) | payer MEDICAID, SELFPAY | END 2023-08-19 08:54 | disposition home or self-care (01) | LOC: HO.LNP 08:53 | PROVIDERS: PCP Internal Medicine; Visit Provider Obstetrics & Gynecology | DX: N76.0 Acute vaginitis (principal); B96.89 Other specified bacterial agents as the cause of diseases classified elsewhere | CPT/HCPCS: 99212 ==

== ENCOUNTER 2023-08-19 09:22 | Outpatient (REF) | payer MEDICAID, SELFPAY ==
[2023-08-19 16:49] LABS: CT PCR NOT DETECTED (Not Detect.); NG PCR NOT DETECTED (Not Detect.)
[2023-08-20 09:03] LABS: HIV AB/AG Nonreactive (Nonreactive); HIV Num 1 0.06 S/CO (0.00-0.99); Hepatitis B Surface Antigen Negative (Negative); ~HepC Num1 0.08 S/CO (0.00-0.79); ~Hepatitis C Antibody Nonreactive (Nonreactive)
[2023-08-20 14:29] LABS: BV Int Neg Control Negative (Negative); BV Int Pos Control Positive (Positive)
[2023-08-21 08:05] LABS: Syphilis Screen Nonreactive (Nonreactive)
== END 2023-08-19 09:23 | disposition home or self-care (01) ==
LOC: HO.LAB 09:22
PROVIDERS: PCP Internal Medicine; Visit Provider Obstetrics & Gynecology
DX: Z11.4 Encounter for screening for human immunodeficiency virus [HIV] (principal); N76.0 Acute vaginitis; B96.89 Other specified bacterial agents as the cause of diseases classified elsewhere; Z20.2 Contact with and (suspected) exposure to infections with a predominantly sexual mode of transmission
CPT/HCPCS: 0353U; 86780; 86803; 87340; 87389; 87480; 87510; 87660

== ENCOUNTER 2023-08-21 09:38 | Outpatient (RCR) | payer MEDICAID, SELFPAY ==
--- NOTE | 2023-08-21 11:29 | MHC.PT.EP ---
[facility] [place] Office [place] Office [place] Office [address] Floyd Salvador [address] [phone] F: [phone] F: [phone] F: [phone] F: [phone] Physical Therapy Plan of Care Date of Evaluation: 08/21/23 Date of Surgery: N/A Diagnosis: sprain of unspecified ligament of left ankle (RL) goes by Cindy Assessment: pt is a 33 y/o female presenting to physical therapy w/ referring diagnosis of sprain of unspecified ligament of left ankle, initial encounter w/ special instructions gentle rom, proprioceptive training-wean boot into Lace up aso. pt also presents w/ comorbidity [id number] which predisposes her to nerve pain and other neurological symptoms which will make her progress slower. Impairments include pain, decreased range of motion, decreased strength, impaired functional mobility, impaired postural awareness, and altered ambulation mechanics. pt is a fair candidate for skilled PT due to age, potential remediation of impairments, typical disease/condition progression and prognosis, comorbidities, and motivation. pt would benefit from skilled PT intervention to provide a tailored strengthening and stretching exercise program, functional training, gait training, postural re-training, neuromuscular re-education, modalities as needed for pain, equipment safety demonstration. Frequency and Duration: The patient will be seen 2x/wk for 8 wks Short Term Goals: pt will be I w/ HEP to promote self-management of condition. pt will improve B ankle DF by at least 10 degrees to normalize gait on even ground. pt will ascend/descend 5 stairs using reciprocal pattern. Application Security Consultant Goals: pt will tolerate >20 minutes of standing w/o brace donned to promote return to ADLs. pt will report a statistically significant improvement in self-reported outcome measure, LEFI, to promote return to PLOF. pt will ambulate x1600' w/ <3/10 ankle pain to promote return to community ambulation. Treatment Plan: Modalities to reduce pain, spasms and effusion. Manual therapy to restore motion and function. Therapeutic exercise to improve strength and flexibility. Neuromuscular re-education for posture and balance. Therapeutic activities to return to functional activities of daily living. Electronically signed by: Mer Thompson PT, DPT Please sign and return to therapist. Thank you for your referral.
--- NOTE | 2023-09-25 10:00 | MHC.PT.DC ---
[facility] [place] Office [place] Office [place] Office [address] Floyd Salvador [address] [phone] F: [phone] F: [phone] F: [phone] F: [phone] Physical Therapy Discharge Report Diagnosis: sprain of unspecified ligament of left ankle (RL) goes by Cindy Date of Surgery: N/A Date of Evaluation: 08/21/23 Date of Discharge: 09/25/23 Treatments to Date: 1 Cancellations to Date: 2 No Shows to Date: 2 Discharge Status: Visit Non-compliance Discharge Summary: The patient did not attend any of her scheduled follow-ups. She has not been seen in 35 days. She is being discharged per non-compliance with attendance policy. Electronically signed by: Mer Thompson PT, DPT Please sign and return to therapist. Thank you for your referral.
== END 2023-09-25 10:00 | disposition home or self-care (01) ==
LOC: HO.PT 09:38
PROVIDERS: PCP Internal Medicine; Visit Provider Physician Assistant
DX: S93.402D Sprain of unspecified ligament of left ankle, subsequent encounter (principal)
CPT/HCPCS: 97162

== ENCOUNTER 2023-09-15 22:49 | Emergency (ER) | payer MEDICAID, SELFPAY ==
--- NOTE | ~2023-09-15 | CT_ITS ---
EXAMINATION: CT ABDOMEN AND PELVIS WITHOUT CONTRAST CLINICAL INFORMATION: Left flank pain COMPARISON: None available. TECHNIQUE: Multidetector volumetric imaging was performed from the superior aspect of the liver through the pubic symphysis. Sagittal and coronal reformatted images were obtained on the technologist's workstation. This CT examination was performed using dose optimization techniques as appropriate, variously including the following: *Automated exposure control *Adjustment of mA and/or kV according to patient size (this includes techniques or standardized protocols for targeted exams where dose is matched to indication/reason for exam; i.e. extremities or head) *Use of iterative reconstruction technique DLP: 758 mGy-cm FINDINGS: LUNG BASES: The visualized lung bases are unremarkable. LIVER, GALLBLADDER, AND BILIARY TREE: The liver is normal in size, shape, and attenuation. No focal hepatic lesion or biliary ductal dilatation is identified on this noncontrast exam. The gallbladder is unremarkable with no evidence of radiopaque gallstones, gallbladder wall thickening, or obvious pericholecystic inflammatory changes. PANCREAS: Unremarkable. SPLEEN: Unremarkable. ADRENAL GLANDS: Unremarkable. KIDNEYS AND URETERS: No hydronephrosis or obstructing calculus bilaterally. BLADDER: Unremarkable. GASTROINTESTINAL TRACT: No evidence of bowel obstruction or significant wall thickening. The appendix is unremarkable. No free fluid or free air is seen. ABDOMINAL WALL: No significant hernia is appreciated. LYMPH NODES: Normal. VASCULAR: Unremarkable. PELVIC VISCERA: Unremarkable. OSSEOUS STRUCTURES: Unremarkable. CT/CT abdomen pelvis wo IV con IMPRESSION: No acute findings identified in the abdomen/pelvis.
[2023-09-15 22:50] VITALS: BP 147/76; PULSE 100; RESP 18; TEMP 36.4; O2SAT 99; BMI 39.5
[2023-09-16 01:08] LABS: MANUAL DIFF FLAG NO
[2023-09-16 01:10] LABS: Basophils Absolute Auto 0.1 X10*3/uL (0.0-0.2); Basophils Percent Auto 0.5 % (0-2); Eosinophils Absolute Auto 0.3 X10*3/uL (0.0-0.4); Eosinophils Percent Auto 2.6 % (0-4); Hematocrit 36.1 % (37.0-47.0); Hemoglobin 11.9 g/dl (12.0-16.0); Imm Gran Abs Auto 0.03 X10*3/uL (0.00-0.03); Imm Gran Pct Auto 0.3 % (0.0-0.4); Lymphocytes Absolute Auto 2.8 X10*3/uL (1.2-4.9); Lymphocytes Percent Auto 27.7 % (20-40); Mean Corpuscular Hemoglobin 29.7 pg (27.0-33.0); Mean Platelet Volume 9.6 fL (9.4-12.3); Monocytes Percent Auto 9.4 % (2-11); Neutrophils Absolute Auto 6.1 x10*3/uL (2.0-8.3); Neutrophils Percent Auto 59.5 % (45-73); Platelet Count 400 X10*3/uL (160-400); Red Blood Count 4.01 X10*6/uL (4.20-5.50); White Blood Count 10.2 X10*3/uL (4.8-10.8)
[2023-09-16 01:26] LABS: Alanine Aminotransferase 14 U/L (0-31); Albumin Level 3.7 g/dL (3.5-5.0); Alkaline Phosphatase 74 U/L (39-117); Anion Gap 14 (12-20); Aspartate Amino Transferase 14 U/L (5-31); Bilirubin Direct 0.2 mg/dL (0.0-0.5); Bilirubin Total 0.4 mg/dL (0.0-1.0); Blood Urea Nitrogen 11 mg/dL (9-16); Calcium 8.9 mg/dL (8.4-10.2); Carbon Dioxide 22 mmol/L (22-29); Chloride 107 mmol/L (96-108); Creatinine Clr Calc Pharmacy 116.8; Estimated Glomerular Filt Rate > 60; Glucose Random 101 mg/dL (60-115); Lipase 22 U/L (8-78); Potassium 4.1 mmol/L (3.3-5.1); Sodium 139 mmol/L (135-145); Total Protein 7.1 g/dL (6.5-8.0)
[2023-09-16 01:46] LABS: Appearance Urine Clear; Color Urine Yellow; Glucose Urine UA Negative (Negative); Leukocyte Esterase Urine Negative (Negative); Nitrite Urine Negative (Negative); Urine Blood Negative (Negative); Urine Ketones Negative (Negative); Urine Protein Negative (Neg-Trace)
[2023-09-16 01:47] LABS: UPreg QC Valid YES; Urine Pregnancy NEGATIVE (NEGATIVE)
--- NOTE | 2023-09-16 03:48 | ED_ITS ---
HPI - Back Pain/Injury General Chief Complaint: Back Pain/Injury Stated Complaint: L lower back pain/Nausea Time Seen by Provider: 09/16/23 03:39 Source: patient Mode of arrival: ambulatory Limitations: no limitations History of Present Illness HPI Narrative: 33 yo female with PMH of PTSD, Charcot Leanna Tooth, MDD, here with c/o L flank pain radiating to abdomen starting yesterday with pain when she urinates. Pain comes and goes. No trauma. no pain with movements became worse 2 hours prior to arrival MD elicited complaint: back pain Onset (ago): day(s) (1) Timing: progressively worsening Severity: moderate Similar Symptoms Previously: No Quality: sharp Location: left flank Radiation: abdomen Exacerbating factors: other (urinating) Relieving factors: none Context: unknown Associated symptoms: dysuria Work related injury: No Related Data Previous Rx's Medication Instructions Recorded cyclobenzaprine 10 mg tablet 10 mg PO TID PRN muscle spasm 30 12/15/22 days #30 tabs aripiprazole 10 mg tablet (Abilify) 10 mg PO BEDTIME #30 tabs 01/29/23 bupropion HCl 150 mg 24 hr tablet, 150 mg PO QAM #30 tabs 01/29/23 extended release buspirone 10 mg tablet See Rx Instructions .Route 01/29/23 .COMPLEX #120 tabs gabapentin 800 mg tablet 800 mg PO TID #90 tabs 01/29/23 acetaminophen 500 mg tablet 1,000 mg (2 x 500 mg) PO Q6H PRN 05/20/23 (Tylenol Extra Strength) pain #20 tabs ibuprofen 600 mg tablet 600 mg PO Q8H PRN pain #30 tabs 05/20/23 metronidazole 500 mg tablet 500 mg PO BID 7 days #14 tabs 08/19/23 cyclobenzaprine 10 mg tablet 10 mg PO TID PRN muscle spasm #20 09/16/23 tabs ibuprofen 600 mg tablet 600 mg PO Q6H PRN pain #30 tabs 09/16/23 lidocaine 5 % topical patch 1 patch topical DAILY #30 ea 09/16/23 Allergies Allergy/AdvReac Type Severity Reaction Status Date / Time apple Allergy Throat Verified 09/15/23 22:53 itches Review of Systems 2 Review of Systems: Constitutional : No Fever, No Chills ENT/Mouth : No sore throat Eyes: No Eye Pain, No Swelling, No Redness Cardiovascular : No Chest Pain, No SOB Respiratory : No Cough, No Sputum, No Wheezing Gastrointestinal : no Nausea, no Vomiting, No Diarrhea, positive abdominal pain Genitourinary : positive Dysuria, no urinary frequency, no Hematuria, positive Flank Pain, no hesitancy Musculoskeletal : No joint pain, No Myalgias Skin : No Skin Lesions, No rash Neuro : No Weakness, No Numbness, No Headache Psych : No Anxiety/Panic, No Depression Heme/Lymph: No Bruising, No Lymphadenopathy Endocrine : No Polyuria, No Polydipsia All other systems reviewed and are negative [facility] Past Medical History Attestation statement: The following information was validated with the patient. Source: old records reviewed Medical History PTSD (post-traumatic stress disorder) Anxiety Depression Charcot Leanna Tooth muscular atrophy Family History Family History Mother Colon cancer Social History Social History Household Members: Family and Other Household Members Other:: Pt's son,sister and brother in law Housing: Apartment Patient Tobacco Use Status: Current someday Tobacco user Tobacco use type: Cigarette Second Hand Smoke Exposure: No Substance Use Type: Marijuana Advance Directives: No Advance Directives Information Provided: No service: No Sexual orientation: Straight/Heterosexual Physical Exam 2 Vital Signs: Vital Signs: Last Vital Signs Temp 97.6 F 09/15/23 22:50 Pulse 100 09/15/23 22:50 Resp 18 09/15/23 22:50 BP 147/76 H 09/15/23 22:50 Pulse Ox 99 09/15/23 22:50 O2 Del Method Room Air 09/15/23 22:50 BMI result Body Mass Index 39.5 Appearance: Alert. Oriented X3. No acute distress. Eyes: Pupils equal, round and reactive to light. ENT: Pharynx normal. Neck: Normal inspection. Neck supple. CVS: Normal heart rate and rhythm. Pulses normal. Respiratory: No respiratory distress. Breath sounds normal. Abdomen: Soft and nontender. Back: mild L flank ttp Skin: Skin warm and dry. Normal skin color. Normal skin turgor. Extremities: No lower extremity edema. No calf ttp Neuro: Oriented X 3. No motor deficit. No sensory deficit. Medications Administered Discontinued Medications Generic Name Dose Route Start Last Admin Trade Name Brenda PRN Reason Stop Dose Admin Morphine Sulfate 15 mg 09/16/23 03:57 09/16/23 04:14 Morphine Sulfate Immed Release 15 Mg Tablet PO 09/16/23 03:58 15 mg ONCE ONE Administration Ondansetron HCl 4 mg 09/16/23 03:57 09/16/23 04:03 Ondansetron Odt 4 Mg Tab.Rapdis TRANSLINGU 09/16/23 03:58 4 mg ONCE ONE Administration Medical Decision Making Medical Decision Making MDM Narrative: 33 yo female with PMH of PTSD, Charcot Leanna Tooth, MDD, here with L flank pain radiating to abdomen but no other symptoms - it is made worse with urination. no known trauma. At this time will need basic labs, UA and CT scan for renal colic. PO morphine for pain ordered. Differential Diagnosis Differential Diagnoses: The differential diagnosis associated with the presentation includes UTI, renal colic, MSK strain Admission/Observation Consideration of admission/observation: Escalation of care including admission/observation considered no acute findings, feels better stable for DC Lab Data [facility] Lab Attestation statement: I reviewed the patient's lab results. 09/16/23 00:41 09/16/23 00:41 Labs: Lab Results 09/16/23 09/16/23 Range/Units 00:41 01:35 WBC 10.2 (4.8-10.8) X10*3/uL RBC 4.01 L (4.20-5.50) X10*6/uL Hgb 11.9 L (12.0-16.0) g/dl Hct 36.1 L (37.0-47.0) % MCV 90.0 (80.0-98.0) fL MCH 29.7 (27.0-33.0) pg MCHC 33.0 (31.0-35.0) g/dl RDW 13.0 (11.0-16.0) % Plt Count 400 D (160-400) X10*3/uL MPV 9.6 (9.4-12.3) fL Immature Gran % (Auto) 0.3 (0.0-0.4) % Neut % (Auto) 59.5 (45-73) % Lymph % (Auto) 27.7 (20-40) % [place] % (Auto) 9.4 (2-11) % Eos % (Auto) 2.6 (0-4) % Baso % (Auto) 0.5 (0-2) % Lymph # (Auto) 2.8 (1.2-4.9) X10*3/uL [place] # (Auto) 1.0 (0.1-1.2) X10*3/uL Eos # (Auto) 0.3 (0.0-0.4) X10*3/uL Baso # (Auto) 0.1 (0.0-0.2) X10*3/uL Abs Immat Gran (auto) 0.03 (0.00-0.03) X10*3/uL Absolute Neuts (auto) 6.1 (2.0-8.3) x10*3/uL Absolute Nucleated RBC 0.000 (0.0-0.012) X10*3/uL Nucleated RBC % (auto) 0.0 (0.0-0.2) /100WBC Sodium 139 (135-145) mmol/L Potassium 4.1 (3.3-5.1) mmol/L Chloride 107 (96-108) mmol/L Carbon Dioxide 22 (22-29) mmol/L Anion Gap 14 (12-20) BUN 11 (9-16) mg/dL Creatinine 0.72 (0.5-1.4) mg/dL Estim Creat Clear Calc 116.8 Estimated GFR > 60 Random Glucose 101 (60-115) mg/dL Calcium 8.9 (8.4-10.2) mg/dL Total Bilirubin 0.4 (0.0-1.0) mg/dL Direct Bilirubin 0.2 (0.0-0.5) mg/dL AST 14 (5-31) U/L ALT 14 (0-31) U/L Alkaline Phosphatase 74 (39-117) U/L Total Protein 7.1 (6.5-8.0) g/dL Albumin 3.7 (3.5-5.0) g/dL Lipase 22 (8-78) U/L Urine Color Yellow Urine Appearance Clear Urine pH 6.0 (5.0-9.0) Ur Specific [place] 1.020 (1.005-1.025) Urine Protein Negative (Neg-Trace) mg/dL Urine Glucose (UA) Negative (Negative) mg/dL Urine Ketones Negative (Negative) mg/dL Urine Blood Negative (Negative) Urine Nitrite Negative (Negative) Ur Leukocyte Esterase Negative (Negative) Urine Test NEGATIVE (NEGATIVE) Independent Interpretation I performed an independent interpretation of an: CT Scan (normal ) Radiology Impression Discussion of test interpretation with radiology: I have reviewed the radiologist's reading. External Record Review External record reviewed: Inpatient record Prescription Management I considered prescription management with: Pain Medication and Other Discharge Plan Discharge Clinical Impression: Acute flank pain Patient Disposition: Home, Self-Care Instructions: Flank Pain (ED) Additional Instructions: return for worsening symptoms, fevers, vomiting, numbness, weakness, loss of control of bowel or bladder Prescriptions: New lidocaine 5 % adhesive patch,medicated 1 patch topical DAILY Qty: 30 0RF Rx Instructions: leave on most painful area for up to 12 hrs ibuprofen 600 mg tablet 600 mg PO Q6H PRN (Reason: pain) Qty: 30 0RF cyclobenzaprine 10 mg tablet 10 mg PO TID PRN (Reason: muscle spasm) Qty: 20 0RF No Action cyclobenzaprine 10 mg tablet 10 mg PO TID PRN (Reason: muscle spasm) 30 Days Qty: 30 1RF aripiprazole [Abilify] 10 mg tablet 10 mg PO BEDTIME Qty: 30 0RF bupropion HCl 150 mg tablet extended release 24 hr 150 mg PO QAM Qty: 30 0RF buspirone 10 mg tablet See Rx Instructions .ROUTE .COMPLEX Qty: 120 0RF Rx Instructions: 10 mg orally TID, and take 1 extra dose as needed for breakthrough anxiety gabapentin 800 mg tablet 800 mg PO TID Qty: 90 0RF ibuprofen 600 mg tablet 600 mg PO Q8H PRN (Reason: pain) Qty: 30 0RF acetaminophen [Tylenol Extra Strength] 500 mg tablet 1,000 mg PO Q6H PRN (Reason: pain) Qty: 20 0RF metronidazole 500 mg tablet 500 mg PO BID 7 Days Qty: 14 0RF
[2023-09-16] MEDS: Ondansetron ODT 4 MG TAB.RAPDIS TRANSLINGU (04:03)
[2023-09-16] MEDS: Morphine Sulfate Immed Release 15 MG TABLET PO (04:14)
[2023-09-16 05:50] VITALS: BP 124/76; PULSE 68; RESP 16; O2SAT 99
== END 2023-09-16 06:00 | disposition home or self-care (01) ==
PROVIDERS: Emergency Provider Emergency Medicine; PCP Internal Medicine
DX: R10.2 Pelvic and perineal pain (principal); M54.2 Cervicalgia; R10.9 Unspecified abdominal pain; R30.0 Dysuria; Z79.899 Other long term (current) drug therapy; F17.210 Nicotine dependence, cigarettes, uncomplicated; Z71.6 Tobacco abuse counseling
CPT/HCPCS: 36415; 74176; 80048; 80076; 81003; 81025; 83690; 85025; 99284

== ENCOUNTER 2023-09-25 14:52 | Emergency (ER) | payer MEDICAID, SELFPAY ==
--- NOTE | ~2023-09-25 | XR_ITS ---
EXAMINATION: XR KNEE, RIGHT CLINICAL INFORMATION: Fracture versus dislocation of right knee COMPARISON: None available. TECHNIQUE: Four views of the right knee. FINDINGS: No fracture or joint effusion. Alignment is anatomic. Joint spaces are maintained. No abnormal soft tissue calcification. XR/XR knee RT 3V IMPRESSION: Normal right knee.
[2023-09-25 14:57] VITALS: BP 134/92; PULSE 73; O2SAT 95
[2023-09-25 14:58] VITALS: BP 131/77; PULSE 95; RESP 15; TEMP 36.6; O2SAT 98; BMI 39.5
--- NOTE | 2023-09-25 15:13 | ED_ITS ---
HPI - Extremity Injury (Lower) General Chief Complaint: Extremity Injury, Lower Stated Complaint: KNEE POPPED OUT OF PLACE Time Seen by Provider: 09/25/23 14:55 Source: patient and EMS Mode of arrival: EMS Limitations: no limitations History of Present Illness HPI Narrative: 33-year-old female here with complaints of right knee pain. Patient reports she took a step and felt a popping sensation in her right knee I was unable to bend it. She then felt that the knee popped back into place. She tells me she has had issues with her knee being unstable and she has had previous knee dislocations in the past. Patient reports these have occurred with falls or injuries. Related Data Previous Rx's Medication Instructions Recorded cyclobenzaprine 10 mg tablet 10 mg PO TID PRN muscle spasm 30 12/15/22 days #30 tabs aripiprazole 10 mg tablet (Abilify) 10 mg PO BEDTIME #30 tabs 01/29/23 bupropion HCl 150 mg 24 hr tablet, 150 mg PO QAM #30 tabs 01/29/23 extended release buspirone 10 mg tablet See Rx Instructions .Route 01/29/23 .COMPLEX #120 tabs gabapentin 800 mg tablet 800 mg PO TID #90 tabs 01/29/23 acetaminophen 500 mg tablet 1,000 mg (2 x 500 mg) PO Q6H PRN 05/20/23 (Tylenol Extra Strength) pain #20 tabs ibuprofen 600 mg tablet 600 mg PO Q8H PRN pain #30 tabs 05/20/23 metronidazole 500 mg tablet 500 mg PO BID 7 days #14 tabs 08/19/23 cyclobenzaprine 10 mg tablet 10 mg PO TID PRN muscle spasm #20 09/16/23 tabs ibuprofen 600 mg tablet 600 mg PO Q6H PRN pain #30 tabs 09/16/23 lidocaine 5 % topical patch 1 patch topical DAILY #30 ea 09/16/23 Allergies Allergy/AdvReac Type Severity Reaction Status Date / Time apple Allergy Throat Verified 09/25/23 14:58 itches Review of Systems Review of Systems: Yes all other systems are reviewed and are negative Constitutional: Constitutional: Reports no additional constitutional complaints, Denies body ache(s), Denies chills, Denies fever(s), Denies headache(s) and Denies weakness Eyes: Eyes: Reports no additional eye complaints and Denies change in vision ENT: Reports system reviewed and no additional complaints, except as documented, Denies dizziness, Denies headache(s), Denies nasal congestion, Denies nasal discharge and Denies neck pain Cardiovascular: Cardiovascular: Reports no additional cardiovascular complaints, Denies chest pain, Denies leg edema and Denies dyspnea Respiratory: Respiratory: Reports no additional respiratory complaints, Denies cough and Denies dyspnea Gastrointestinal: Gastrointestinal: Reports no additional gastrointestinal complaints, Denies abdominal pain, Denies diarrhea, Denies nausea and Denies vomiting Genitourinary: Genitourinary: Reports no additional female genitourinary complaints and Denies urinary incontinence Musculoskeletal: Musculoskeletal: Reports no additional musculoskeletal complaints, Denies back pain, Reports arthralgias, Denies joint swelling, Denies limited range of motion, Denies neck pain, Denies numbness and Denies tingling Integumentary/Breasts: Skin/Breast: Reports system reviewed and no additional complaints, except as docu and Denies rash Neurologic: Reports system reviewed and no additional complaints, except as documented, Denies Abnormal speech present, Denies dizziness, Denies headache(s), Denies numbness, Denies tingling and Denies weakness PMFSH Past Medical History Attestation statement: The following information was validated with the patient. Source: old records reviewed and nursing notes reviewed Medical History PTSD (post-traumatic stress disorder) Anxiety Depression Charcot Leanna Tooth muscular atrophy Family History Family History Mother Colon cancer Social History Social History Household Members: Family and Other Household Members Other:: Pt's son,sister and brother in law Housing: Apartment Patient Tobacco Use Status: Current someday Tobacco user Tobacco use type: Cigarette Second Hand Smoke Exposure: No Substance Use Type: Marijuana Advance Directives: No Advance Directives Information Provided: No service: No Sexual orientation: Straight/Heterosexual Physical Exam Vital Signs: Vital Signs: Last Vital Signs Temp 98 F 09/25/23 14:58 Pulse 95 09/25/23 14:58 Resp 15 09/25/23 14:58 BP 131/77 09/25/23 14:58 Pulse Ox 98 09/25/23 14:58 BMI result Body Mass Index 39.5 Const: General: cooperative, healthy appearing, comfortable and no acute distress Orientation/consciousness: patient oriented x3 Limitations: no limitations HEENT: Head: Yes normal to inspection Ears: hearing grossly normal bilaterally General nose exam: Normal external nose present Face and sinus: Yes normal facial exam Mouth: Normal oral and palatal mucosa present Throat: Yes posterior oropharynx normal Eyes: General: appearance normal, both eyes and all related structures Pupils: Equal, round and reactive pupils present Neck: Neck: Yes normal visual inspection Chest: Chest palpation & inspection: normal inspection of the chest Resp: Effort & Inspection: normal respiratory effort Auscultation: clear to auscultation bilaterally Cardio: Rate: regular rate Rhythm: regular rhythm Peripheral pulses: Peripheral pulses 2+ throughout GI: Inspection: Yes normal to inspection Palpation (GI): Soft to palpation and nontender Auscultation: normal bowel sounds Back/Spine/Pelvis: Thoracic/Lumbar Spine: thoracic and lumbar spine normal to inspection Skin: General skin exam: no rashes or lesions noted Neuro: General: patient oriented x3, no focal motor deficits and normal sensation to monofilament Cranial nerves: Yes Equal, round and reactive pupils present Cognition (Neuro): normal cognition Speech: No Abnormal speech present Gait exam (Neuro): Normal gait present Motor exam (neuro): 5/5 motor strength present throughout Extrem: Other: Patient reports tenderness over the right anterior knee. There is no obvious dislocation. Patient able to flex and extend the knee with no difficulty both passively and actively. There are palpable DP and PT pulses. There is normal sensation distally. Normal range of motion passive and actively of the right ankle. General: Yes normal to inspection Course Course Course Narrative: x-ray show no acute finding. Patient may have had a spontaneous reduction of the knee. Will place an Abdi wrap and give crutches for home. Reviewed worrisome signs and symptoms of when to return to the emergency room. Comfortable plan for discharge home. Medications Administered Discontinued Medications Generic Name Dose Route Start Last Admin Trade Name Freq PRN Reason Stop Dose Admin Ibuprofen 800 mg 09/25/23 15:36 09/25/23 15:39 Ibuprofen 800 Mg Tablet PO 09/25/23 15:37 800 mg ONCE ONE Administration Medical Decision Making Medical Decision Making MDM Narrative: 33-year-old female here with complaints of right knee pain. Patient reports she took a step and felt a popping sensation in her right knee I was unable to bend it. She then felt that the knee popped back into place. She tells me she has had issues with her knee being unstable and she has had previous knee dislocations in the past. Patient reports these have occurred with falls or injuries. Patient reports tenderness over the right anterior knee. There is no obvious dislocation. Patient able to flex and extend the knee with no difficulty both passively and actively. There are palpable DP and PT pulses. There is normal sensation distally. Normal range of motion passive and actively of the right ankle. Will obtain x-ray Differential Diagnosis Differential Diagnoses: The differential diagnosis associated with the presentation includes low concern for dislocation, vascular injury, fracture likely strain, spontaneous reduction from dislocation, ligamental laxity Admission/Observation Consideration of admission/observation: Escalation of care including admission/observation considered no evidence of complex fracture, dislocation, vascular injury requiring advanced imaging, orthopedic consultation and/or admission Independent Interpretation I performed an independent interpretation of an: Plain X-Ray Interpretation: I independently reviewed the x-ray and agree with Radiology report Radiology Impression Discussion of test interpretation with radiology: I have reviewed the radiologist's reading. Radiologist Impression: [place] [id number] XRay Report Signed Patient: Cheyanne Arriaga MR#: [id number] : 1990 Acct:[id number] Age/Sex: 33 / F ADM Date: 09/25/23 Loc: .ED Attending Dr: Ordering Physician: Tejal Freire NP Date of Service: 09/25/23 Procedure(s): XR knee RT 3V Accession Number(s): [id number] cc: Merly Carrington MD; Tejal Freire NP~ EXAMINATION: XR KNEE, RIGHT CLINICAL INFORMATION: Fracture versus dislocation of right knee COMPARISON: None available. TECHNIQUE: Four views of the right knee. FINDINGS: No fracture or joint effusion. Alignment is anatomic. Joint spaces are maintained. No abnormal soft tissue calcification. XR/XR knee RT 3V IMPRESSION: Normal right knee. Independent Historian Clinical information obtained from an independent historian. History obtained from or confirmed by: EMS Tests considered The following testing was considered but not selected: no evidence of complex fracture, dislocation, vascular injury requiring advanced imaging Procedures Orthopedic Splinting/Casting Injury #1: Side: right Lower Extremity Injury Location: knee Lower Extremity Immobilizer: Abdi wrap Other Orthopedic Equipment: crutches Discharge Plan Discharge Clinical Impression: Acute knee pain Patient Disposition: Home, Self-Care Instructions: Knee Pain (ED) Additional Instructions: Use the Abdi wrap and crutches as needed. Apply ice, rest the knee Follow-up with Orthopedics Take Motrin or Tylenol for pain as needed. Prescriptions: No Action cyclobenzaprine 10 mg tablet 10 mg PO TID PRN (Reason: muscle spasm) 30 Days Qty: 30 1RF aripiprazole [Abilify] 10 mg tablet 10 mg PO BEDTIME Qty: 30 0RF bupropion HCl 150 mg tablet extended release 24 hr 150 mg PO QAM Qty: 30 0RF buspirone 10 mg tablet See Rx Instructions .ROUTE .COMPLEX Qty: 120 0RF Rx Instructions: 10 mg orally TID, and take 1 extra dose as needed for breakthrough anxiety gabapentin 800 mg tablet 800 mg PO TID Qty: 90 0RF lidocaine 5 % adhesive patch,medicated 1 patch topical DAILY Qty: 30 0RF Rx Instructions: leave on most painful area for up to 12 hrs ibuprofen 600 mg tablet 600 mg PO Q6H PRN (Reason: pain) Qty: 30 0RF cyclobenzaprine 10 mg tablet 10 mg PO TID PRN (Reason: muscle spasm) Qty: 20 0RF ibuprofen 600 mg tablet 600 mg PO Q8H PRN (Reason: pain) Qty: 30 0RF acetaminophen [Tylenol Extra Strength] 500 mg tablet 1,000 mg PO Q6H PRN (Reason: pain) Qty: 20 0RF metronidazole 500 mg tablet 500 mg PO BID 7 Days Qty: 14 0RF Referrals: [facility] [place] [facility] [Provider Group] - 1 week Stand Alone Forms: Work/School Release
[2023-09-25] MEDS: Ibuprofen 800 MG TABLET PO (15:39)
[2023-09-25 16:51] VITALS: BP 115/63; PULSE 86; RESP 16
== END 2023-09-25 17:12 | disposition home or self-care (01) ==
PROVIDERS: Emergency Provider Emergency Medicine; PCP Internal Medicine
DX: M25.561 Pain in right knee (principal); F17.210 Nicotine dependence, cigarettes, uncomplicated
CPT/HCPCS: 73562; 99283

== ENCOUNTER 2023-09-29 10:57 | Emergency (ER) | payer MEDICAID, SELFPAY ==
--- NOTE | ~2023-09-29 | US_ITS ---
EXAMINATION: US VENOUS ULTRASOUND WITH DOPPLER LOWER EXTREMITY, RIGHT CLINICAL INFORMATION: Edema, pain right lower extremity COMPARISON: None available. TECHNIQUE: Ultrasound of the deep veins is performed from the hip to the calf with compression sonography and color and pulse Doppler assessment. Spectral analysis with color-flow imaging is performed. FINDINGS: There is normal venous compression and respiratory variation and augmented flow. The visualized common femoral vein, superficial femoral vein, profunda femoral vein, popliteal vein and the mid-calf peroneal and posterior tibial venous segments show no evidence of deep venous thrombosis. US/US venous duplex LE RT IMPRESSION: No DVT demonstrated in the right lower extremity.
--- NOTE | ~2023-09-29 | XR_ITS ---
EXAMINATION: XR LUMBOSACRAL SPINE CLINICAL INFORMATION: Back pain Patient has pain radiating down to her toes on the right side COMPARISON: None available. TECHNIQUE: Three views of the lumbosacral spine. FINDINGS: There is loss of the usual lumbar lordosis which can be seen with muscle spasm. The vertebral bodies and posterior elements are normal. The disc spaces are preserved. No spondylolisthesis. The paraspinal soft tissues are normal. XR/XR lumbar spine 2-3V IMPRESSION: Muscle spasm.
--- NOTE | 2023-09-29 11:17 | ED.LOWEXIN ---
HPI - Extremity Injury (Lower) General Chief Complaint: Extremity Problem Stated Complaint: R Knee and Lower Back Pain No Injury Time Seen by Provider: 09/29/23 12:33 Source: patient and RN notes reviewed Mode of arrival: ambulatory Limitations: no limitations History of Present Illness HPI Narrative: This is a 33-year-old female, with a past medical history of PTSD, anxiety, depression, Charcot Leanna Tooth muscular atrophy, presenting to the emergency department with complaints of ongoing right knee pain, and back pain. Patient was seen here in the emergency department on September 25 after feeling as though she dislocated her right knee. She was unable to bend it for about a 1/2 hour. She felt as though her thigh and quad muscle was spasming at that time. She states that her kneecap spontaneously popped back into place. Patient had a negative x-ray and was given referral to Orthopedics for follow-up. She has been using Abdi wrap and crutches however states that her pain is only worsening. She states that the pain is keeping her up at night. She also endorses back pain that starts in her low back and radiates down her entire right leg. No new injury or trauma. She denies any numbness and tingling into her groin. No urinary or bowel incontinence. No other complaints or concerns at this time. MD complaint: knee injury Onset (ago): day(s) Relieving factors: nothing Exacerbating factors: nothing Other symptoms: none Related Data Previous Rx's Medication Instructions Recorded cyclobenzaprine 10 mg tablet 10 mg PO TID PRN muscle spasm 30 12/15/22 days #30 tabs aripiprazole 10 mg tablet (Abilify) 10 mg PO BEDTIME #30 tabs 01/29/23 bupropion HCl 150 mg 24 hr tablet, 150 mg PO QAM #30 tabs 01/29/23 extended release buspirone 10 mg tablet See Rx Instructions .Route 01/29/23 .COMPLEX #120 tabs gabapentin 800 mg tablet 800 mg PO TID #90 tabs 01/29/23 acetaminophen 500 mg tablet 1,000 mg (2 x 500 mg) PO Q6H PRN 05/20/23 (Tylenol Extra Strength) pain #20 tabs ibuprofen 600 mg tablet 600 mg PO Q8H PRN pain #30 tabs 05/20/23 metronidazole 500 mg tablet 500 mg PO BID 7 days #14 tabs 08/19/23 cyclobenzaprine 10 mg tablet 10 mg PO TID PRN muscle spasm #20 09/16/23 tabs ibuprofen 600 mg tablet 600 mg PO Q6H PRN pain #30 tabs 09/16/23 lidocaine 5 % topical patch 1 patch topical DAILY #30 ea 09/16/23 acetaminophen 500 mg tablet 500 mg PO Q4-6H PRN fever or pain 09/29/23 (Tylenol Extra Strength) #30 tabs ibuprofen 600 mg tablet 600 mg PO Q6H PRN pain #30 tabs 09/29/23 methocarbamol 750 mg tablet 750 mg PO TID #10 tabs 09/29/23 Allergies Allergy/AdvReac Type Severity Reaction Status Date / Time apple Allergy Throat Verified 09/25/23 14:58 itches Review of Systems Review of Systems: Yes all other systems are reviewed and are negative Constitutional: Constitutional: Reports as per [facility] Past Medical History Medical History PTSD (post-traumatic stress disorder) Anxiety Depression Charcot Leanna Tooth muscular atrophy Family History Family History Mother Colon cancer Social History Social History Household Members: Family and Other Household Members Other:: Pt's son,sister and brother in law Housing: Apartment Patient Tobacco Use Status: Current someday Tobacco user Tobacco use type: Cigarette Second Hand Smoke Exposure: No Substance Use Type: Marijuana Advance Directives: No service: No Sexual orientation: Straight/Heterosexual Physical Exam Vital Signs: Vital Signs: Last Vital Signs Temp 97.6 F 09/29/23 14:34 Pulse 92 09/29/23 14:34 Resp 19 09/29/23 14:34 BP 138/78 09/29/23 14:34 Pulse Ox 98 09/29/23 14:34 O2 Del Method Room Air 09/29/23 14:34 BMI result Body Mass Index 40.4 Const: General: cooperative, comfortable and no acute distress Orientation/consciousness: patient oriented x3 Limitations: no limitations HEENT: Head: Yes normal to inspection, Yes normocephalic and Yes atraumatic Ears: hearing grossly normal bilaterally General nose exam: Normal external nose present Face and sinus: Yes normal facial exam Mouth: Normal oral and palatal mucosa present, oropharynx normal and moist mucous membranes Throat: Yes posterior oropharynx normal Eyes: General: appearance normal, both eyes and all related structures Eyelids: Yes eyelids normal Conjunctivae: conjunctivae normal Sclerae: sclerae normal Pupils: Equal, round and reactive pupils present EOM: EOMs intact bilaterally Neck: Neck: Yes normal visual inspection, Yes full ROM and Yes no lymphadenopathy Lymphatic: no lymphadenopathy noted Chest: Chest palpation & inspection: normal inspection of the chest Resp: Effort & Inspection: normal respiratory effort and able to speak in complete sentences Auscultation: clear to auscultation bilaterally, no crackles, no rales, no rhonchi and no wheezes Cardio: Rate: regular rate Rhythm: regular rhythm Heart sounds: S1 normal heart sound present and S2 normal heart sound present GI: Inspection: Yes normal to inspection Skin: General skin exam: no rashes or lesions noted Trauma: no lacerations or abrasions Wounds: no wounds Neuro: General: patient oriented x3 and moves all extremities Cranial nerves: Yes Equal, round and reactive pupils present Extrem: Other: Right calf with mild tenderness palpation. Right knee exquisitely tender to palpation with tenderness along the medial and lateral aspects. Limited range of motion secondary to pain. Tenderness to palpation along the posterior knee. DP pulse 2 +. General: Yes normal to inspection Right upper extremity: normal to inspection Left upper extremity: normal to inspection Right lower extremity: normal to inspection Left lower extremity: normal to inspection Course Course Course Narrative: RME: 33yo F w/PMHx MDD, PTSD, c/o continued/worsening R knee pain and low back pain radiating down LE's. States shes unable to sleep 2/2 pain. Patient was seen on Thursday after knee popped out of place , XRs were unremarkable at that time. Has Ortho appt next Thursday. Patient not using ABDI or crutches in triage that she was given during ED visit. Denies new injury/incontinence or retention Ambulating w/slow steady antalgic gait Full HPI, ROS and PE to be performed by primary ED provider. Reevaluation(s) Reevaluation #1: Ultrasound negative for DVT, lumbar spine x-ray revealing muscle spasm. Patient has Flexeril at home however will try Robaxin. Advised to take ibuprofen and Tylenol. Educated to follow-up with orthopedics as scheduled next week. Given return precautions. Patient understands and agrees with plan. Patient stable for discharge. Time: 17:14 Medications Administered Discontinued Medications Generic Name Dose Route Start Last Admin Trade Name Brenda PRN Reason Stop Dose Admin Ketorolac Tromethamine 30 mg 09/29/23 14:40 09/29/23 15:01 Ketorolac Tromethamine 30 Mg/Ml Vial IM 09/29/23 14:41 30 mg ONCE ONE Administration Medical Decision Making Medical Decision Making MDM Narrative: 33-year-old female presenting to the emergency department for evaluation of ongoing knee pain and back pain. Patient was seen in the emergency department on September 25 and had a negative x-ray after believing she dislocated her right knee. She was given orthopedic follow-up however does not have an appointment until next week. She has been using crutches and Abdi wrap without any relief. She states that she also has had worsening low back pain, that radiates down her entire right leg. She also endorses right calf tenderness. She has no urinary symptoms. Differential diagnoses include right knee strain, popliteal cyst, DVT, sciatica. Patient has no red flag back symptoms to suggest cauda equina syndrome or any other acute process. She has been taking ibuprofen with minimal relief. Plan: Lumbar spine x-ray, ultrasound right lower extremity Differential Diagnosis Differential Diagnoses: The differential diagnosis associated with the presentation includes See above Admission/Observation Consideration of admission/observation: Escalation of care including admission/observation considered Patient would have been admitted to the hospital had her work up had any findings where hospital admission was appropriate and her clinical presentation warranted hospital admission. Discharge Plan Discharge Clinical Impression: Back muscle spasm, Right knee sprain Patient Disposition: Home, Self-Care Instructions: Knee Sprain (ED), Muscle Spasm (ED), Back Pain (ED) Additional Instructions: Please continue taking ibuprofen and Tylenol as needed for pain. Continue resting, icing and elevating the right leg. Use crutches. Use Abdi wrap. Follow-up with orthopedics as advised previously. Your ultrasound did not show blood clot, your x-rays were consistent with a muscle spasm in your back. There are no bony abnormality seen in your back today. If any new or worsening symptoms occur, please return for re-evaluation. Prescriptions: New methocarbamol 750 mg tablet 750 mg PO TID Qty: 10 0RF acetaminophen [Tylenol Extra Strength] 500 mg tablet 500 mg PO Q4-6H PRN (Reason: fever or pain) Qty: 30 0RF ibuprofen 600 mg tablet 600 mg PO Q6H PRN (Reason: pain) Qty: 30 0RF No Action cyclobenzaprine 10 mg tablet 10 mg PO TID PRN (Reason: muscle spasm) 30 Days Qty: 30 1RF aripiprazole [Abilify] 10 mg tablet 10 mg PO BEDTIME Qty: 30 0RF bupropion HCl 150 mg tablet extended release 24 hr 150 mg PO QAM Qty: 30 0RF buspirone 10 mg tablet See Rx Instructions .ROUTE .COMPLEX Qty: 120 0RF Rx Instructions: 10 mg orally TID, and take 1 extra dose as needed for breakthrough anxiety gabapentin 800 mg tablet 800 mg PO TID Qty: 90 0RF lidocaine 5 % adhesive patch,medicated 1 patch topical DAILY Qty: 30 0RF Rx Instructions: leave on most painful area for up to 12 hrs ibuprofen 600 mg tablet 600 mg PO Q6H PRN (Reason: pain) Qty: 30 0RF cyclobenzaprine 10 mg tablet 10 mg PO TID PRN (Reason: muscle spasm) Qty: 20 0RF ibuprofen 600 mg tablet 600 mg PO Q8H PRN (Reason: pain) Qty: 30 0RF acetaminophen [Tylenol Extra Strength] 500 mg tablet 1,000 mg PO Q6H PRN (Reason: pain) Qty: 20 0RF metronidazole 500 mg tablet 500 mg PO BID 7 Days Qty: 14 0RF
[2023-09-29 11:18] VITALS: BP 144/87; PULSE 102; RESP 17; TEMP 36; O2SAT 100; BMI 40.4
--- NOTE | 2023-09-29 11:26 | PC.NURSE ---
ICE PACK GIVEN.
[2023-09-29 14:34] VITALS: BP 138/78; PULSE 92; RESP 19; TEMP 36.4; O2SAT 98
[2023-09-29] MEDS: Ketorolac Tromethamine 30 MG/ML VIAL IM (15:01)
--- NOTE | 2023-09-29 15:16 | PC.NURSE ---
pt medicated per JAN for 10 right knee pain
== END 2023-09-29 17:34 | disposition home or self-care (01) ==
PROVIDERS: Emergency Provider Emergency Medicine; PCP Internal Medicine
DX: M62.830 Muscle spasm of back (principal); S83.91XA Sprain of unspecified site of right knee, initial encounter; X58.XXXA Exposure to other specified factors, initial encounter; M79.661 Pain in right lower leg; G60.0 Hereditary motor and sensory neuropathy; F17.210 Nicotine dependence, cigarettes, uncomplicated; F12.90 Cannabis use, unspecified, uncomplicated; Y93.9 Activity, unspecified; Y92.9 Unspecified place or not applicable; Y99.9 Unspecified external cause status
CPT/HCPCS: 72100; 93971; 96372; 99283; 99284; J1885

== ENCOUNTER 2023-10-06 12:24 | Outpatient (AMB) | payer MEDICAID, SELFPAY ==
--- NOTE | 2023-10-06 12:30 | MHC.OFFVIS ---
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 Patient reports that she has on and off problems with the knee since she was a young girl. She explains that her patella historically pops out of place, when she hits it or had an injury, it usually goes back in place with no concerns. Recently on 09/25/23 she was walking and had the patella dislocate and then relocate back on its own. She has had a significant increase of pain. 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 The patient was seen in the emergency room. She was given crutches but is not currently using them. She is also complaining of back pain but believes that this is because of the changes in her walk. Allergies apple Allergy (Verified 10/06/23 12:32) Throat itches Medication List - Last Reconciled 10/06/23 by Nabil Espinoza MD acetaminophen (Tylenol Extra Strength) 500 mg PO Q4-6H PRN acetaminophen (Tylenol Extra Strength) 1,000 mg (2 x 500 mg) PO Q6H PRN aripiprazole (Abilify) 10 mg PO BEDTIME bupropion HCl 150 mg PO QAM buspirone 10 mg orally TID, and take 1 extra dose as needed for breakthrough anxiety cyclobenzaprine 10 mg PO TID PRN 30 days cyclobenzaprine 10 mg PO TID PRN gabapentin 800 mg PO TID ibuprofen 600 mg PO Q6H PRN ibuprofen 600 mg PO Q8H PRN ibuprofen 600 mg PO Q6H PRN lidocaine 5% 1 patch topical DAILY metronidazole 500 mg PO BID 7 days PFSH Medical History PTSD (post-traumatic stress disorder) Anxiety Depression Charcot Leanna Tooth muscular atrophy Family History Mother Colon cancer Social History Household Members: Family and Other Household Members Other:: Pt's son,sister and brother in law Housing: Apartment Patient Tobacco Use Status: Current someday Tobacco user Tobacco use type: Cigarette Second Hand Smoke Exposure: No Substance Use Type: Marijuana service: No Sexual orientation: Straight/Heterosexual Female Reproductive History Menstrual Age of Menarche: 13 Physical Exam Vital Signs: BMI result Body Mass Index 40.2 Const Other: Well-nourished well-developed very friendly female awake alert and oriented x3 in no acute distress Extrem Other: Bilateral lower extremity examination shows good capillary refill, no skin lesions noted, normal sensation light touch The right knee examination shows a minimal effusion, minimal discomfort with range of motion, full active extension, tenderness along her medial patellofemoral ligament, positive apprehension test Results Reviewed Results Reviewed: X-rays of the patient's right knee taken on 09/25/2023 show minimal diffuse joint space narrowing, no acute bony abnormalities Assessment & Plan Assessment & Plan (1) Instability of right patellofemoral joint: Code(s): M25.361 - Other instability, right knee Plan: Ms. Adriana Delaney presents with right knee patellofemoral instability. I had a lengthy discussion with the patient regarding the treatment options. Most likely the patient's symptoms will improve with non operative treatment. I did have her fitted with a right knee brace to help with her symptoms of instability. I do feel that the brace is a medical necessity to help prevent future falls. I will also have her evaluated by physical therapy. She will contact me prior to her follow-up appointment in 6 weeks should any questions or concerns arise. Feel free to call me at any time should questions regarding her orthopedic management arise. Thank you very much for asking me to see this very friendly patient. I spent 22 minutes in reviewing the patient's records and imaging studies, seeing the patient and documenting in the medical record. Orders: Orders PT Evaluation and Treatment Today M25.361 - Other instability, right knee Coding Level of Care Code New Pt Level 2 (14767) Diagnoses Instability of right patellofemoral joint M25.361
[2023-10-06 12:32] VITALS: BMI 40.2
== END 2023-10-06 13:10 | disposition home or self-care (01) ==
PROVIDERS: PCP Internal Medicine; Visit Provider Orthopaedic Surgery
DX: M25.361 Other instability, right knee (principal)
CPT/HCPCS: 99202

== ENCOUNTER → 2023-10-06 12:24 | Outpatient (BNVA) | payer MEDICAID, SELFPAY | PROVIDERS: PCP Internal Medicine; Visit Provider Orthopaedic Surgery | DX: M25.361 Other instability, right knee (principal); G60.0 Hereditary motor and sensory neuropathy | CPT/HCPCS: 99202 ==

== ENCOUNTER 2023-11-02 15:57 | Outpatient (REF) | payer MEDICAID, SELFPAY | END 2023-11-02 15:58 | disposition home or self-care (01) | LOC: HO.HOSX 15:57 | PROVIDERS: Visit Provider Physician Assistant | DX: Z13.89 Encounter for screening for other disorder (principal) ==

== ENCOUNTER 2023-11-06 14:15 | Outpatient (REF) | payer MEDICAID, SELFPAY ==
[2023-11-07 11:58] LABS: BV Int Neg Control Negative (Negative); BV Int Pos Control Positive (Positive)
== END 2023-11-06 14:16 | disposition home or self-care (01) ==
LOC: HO.LNP 14:15
PROVIDERS: PCP Internal Medicine; Visit Provider Advanced Practice Midwife
DX: N89.8 Other specified noninflammatory disorders of vagina (principal); Z20.2 Contact with and (suspected) exposure to infections with a predominantly sexual mode of transmission; R87.619 Unspecified abnormal cytological findings in specimens from cervix uteri
CPT/HCPCS: 0353U; 86780; 86803; 87340; 87389; 87480; 87510; 87660; 99212

== ENCOUNTER 2023-11-06 14:15 | Outpatient (AMB) | payer MEDICAID, SELFPAY ==
[2023-11-06 14:19] VITALS: BMI 41.6
--- NOTE | 2023-11-06 14:19 | A.OFFVIS_ITS ---
Intake Vital Signs 11/06/23 14:19 Height 5 ft 1 in Weight 220 lb BMI 41.6 Intake Visit Reasons: VAG DISCHARGE Intake Note: weird smell, and feels like she is constantly wet. 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 Member Required: No Information Interpreted: non-clinical & clinical Lobby Attendant: Lobby Attendant Present (Amandeep) Allergies apple Allergy (Verified 11/06/23 14:22) Throat itches Medication List - Last Reconciled 11/06/23 by Mckayla Reyes CNM acetaminophen (Tylenol Extra Strength) 500 mg PO Q4-6H PRN acetaminophen (Tylenol Extra Strength) 1,000 mg (2 x 500 mg) PO Q6H PRN aripiprazole (Abilify) 10 mg PO BEDTIME bupropion HCl 150 mg PO QAM buspirone 10 mg orally TID, and take 1 extra dose as needed for breakthrough anxiety cyclobenzaprine 10 mg PO TID PRN 30 days cyclobenzaprine 10 mg PO TID PRN gabapentin 800 mg PO TID ibuprofen 600 mg PO Q6H PRN ibuprofen 600 mg PO Q8H PRN ibuprofen 600 mg PO Q6H PRN lidocaine 5% 1 patch topical DAILY Is last menstrual period known: Yes Last menstrual period: 10/27/23 Post menopausal: No HPI VAG DISCHARGE HPI Details Patient is here to check her discharge she has felt very wet the last couple of weeks there is a smell that is different but though it is not bad and she is just trying to figure things out she would like a full STD check she has been treated before for Gardnerella/BV with metronidazole and found it really upset her stomach very bad so she would prefer the gel if she could have that. She is not currently sexually active with boys she has a girlfriend but she lives in [place]. She is sexually active. [facility] Medical History PTSD (post-traumatic stress disorder) Anxiety Depression Charcot Leanna Tooth muscular atrophy Family History Mother Colon cancer Social History Household Members: Family and Other Household Members Other:: Pt's son,sister and brother in law Housing: Apartment Patient Tobacco Use Status: Current someday Tobacco user Tobacco use type: Cigarette Second Hand Smoke Exposure: No Substance Use Type: Marijuana service: No Sexual orientation: Straight/Heterosexual Female Reproductive History Menstrual Age of Menarche: 13 Duration of menses: 3-5 days Date of last menstrual period: 10/27/23 control method: none Total pregnancies: 2 Full term: 2 Number of Living Children: 2 Physical Exam Vital Signs: BMI result Body Mass Index 41.6 Other: Vaginal discharge appears white and watery but within normal limits and does not coat vaginal wall and no obvious strong odor. External Female Exam: normal external appearance and normal appearance of the urethra Speculum Exam - Vagina: normal appearance of the vagina and normal vaginal discharge Speculum Exam - Cervix: normal appearance of the cervix and Cervical os closed Results Reviewed Results Reviewed: Name: Cheyanne Arriaga Age/Sex: 33/F Attending: Reuben Douglas MD : 1990 Submitted by: Reuben Douglas MD Copies to: Merly Carrington MD MR #: [id number] Status: DEP REF Collected: 05/28/23 Location: [facility] Received: 05/29/23 Diagnosis A. Endocervix, curettage: Endocervical glandular and squamous mucosa with marked inflammation and focal reactive changes; negative for dysplasia. B. Endometrium, biopsy: Benign proliferative endometrium; no atypia or carcinoma. C. Cervix, 1:00, biopsy: Squamous and endocervical glandular mucosa with marked inflammation and reactive changes; negative for dysplasia. D. Cervix, 5:00, biopsy: Squamous and endocervical glandular mucosa with marked inflammation and reactive changes; negative for dysplasia. E. Cervix, 6:00, biopsy: Squamous and endocervical glandular mucosa with marked inflammation and reactive changes; negative for dysplasia. F. Cervix, 11:00, biopsy: Squamous and endocervical glandular mucosa with marked inflammation and reactive changes; negative for dysplasia. D. Cervix, 12:00, biopsy: Squamous and endocervical glandular mucosa with marked inflammation and reactive changes; negative for dysplasia. Comment: A previous Pap smear is not available at [facility] for correlation. Clinical History MARY on cervical pap smear Microscopic Description Microscopic sections reviewed. Material Received A: ECC B: EMB C: Cx bx @ 1 o'clock D: Cx bx @ 5 o'clock E: Cx bx @ 6 o'clock F: Cx bx @ 11 o'clock G: Cx bx @ 12 o'clock Patient: Cheyanne Arriaga Age/Sex: 33/F MR#: [id number] Page 1 of 2 Assessment & Plan Assessment & Plan (1) Problematic vaginal discharge: Code(s): N89.8 - Other specified noninflammatory disorders of vagina (2) Possible exposure to STD: Code(s): Z20.2 - Contact with and (suspected) exposure to infections with a predominantly sexual mode of transmission (3) Atypical glandular cells of undetermined significance (MARY) on cervical Pap smear: Code(s): R87.619 - Unspecified abnormal cytological findings in specimens from cervix uteri Plan Testing done for gonorrhea chlamydia trichomoniasis Gardnerella and yeast. At patient request I am sending a prescription for metronidazole gel. I am suggesting she may want await for the results but she in fact can use it if she really feels that if her symptoms do line up with bacterial vaginosis. She has does volunteered that she believes she has been very sexually active lately so at certainly can increase the amount of vaginal discharge 1 might have. It might benefit her to pay attention to exactly how her discharge changes within her menstrual cycle. It was years since her Nexplanon was removed. She only started wearing panty liners in the last couple of weeks because of the increased discharge this is not something she normally does so probably did not precipitate this. When she is active with her partner they are careful to clean any ?toys? and yet they use a condom as well. Testing for STis can get in the lab, for HIV hep B hep C and syphilis. And scripts sent for metronidazole gel with 2 refills. Resultswill be available by Thursday. Orders: Orders Hepatitis B Surface Antigen Today N89.8 - Other specified noninflammatory disorders of vagina, Z20.2 - Contact with and (suspected) exposure to infections with a predominantly sexual mode of transmission Hepatitis C Antibody Today N89.8 - Other specified noninflammatory disorders of vagina, Z20.2 - Contact with and (suspected) exposure to infections with a predominantly sexual mode of transmission Bacterial Vaginosis Panel Today N89.8 - Other specified noninflammatory disorders of vagina HIV Ab/Ag Today N89.8 - Other specified noninflammatory disorders of vagina, Z20.2 - Contact with and (suspected) exposure to infections with a predominantly sexual mode of transmission Syphilis Screen Today N89.8 - Other specified noninflammatory disorders of vagina, Z20.2 - Contact with and (suspected) exposure to infections with a predominantly sexual mode of transmission CT NG by PCR Today N89.8 - Other specified noninflammatory disorders of vagina Medications: New metronidazole 0.75%(37.5mg/5gram) Use p.r.n. when clear symptoms of bacterial vaginosis are present. 1 appful vaginal BID 5 days 70 grams 2RF Coding Level of Care Code Est Pt Level 3 (11888) Diagnoses Problematic vaginal discharge N89.8 Possible exposure to STD Z20.2 Atypical glandular cells of undetermined significance (MARY) on cervical Pap smear R87.619
== END 2023-11-06 15:13 | disposition home or self-care (01) ==
PROVIDERS: PCP Internal Medicine; Visit Provider Advanced Practice Midwife
DX: N89.8 Other specified noninflammatory disorders of vagina (principal); Z20.2 Contact with and (suspected) exposure to infections with a predominantly sexual mode of transmission; R87.619 Unspecified abnormal cytological findings in specimens from cervix uteri
CPT/HCPCS: 99213

== ENCOUNTER 2023-11-06 15:20 | Outpatient (REF) | payer MEDICAID, SELFPAY ==
[2023-11-06 18:45] LABS: CT PCR NOT DETECTED (Not Detect.); NG PCR NOT DETECTED (Not Detect.)
[2023-11-07 04:26] LABS: Syphilis Screen Nonreactive (Nonreactive)
[2023-11-07 04:45] LABS: HBsAGNum1 0.29 S/CO (0.00-0.99); Hepatitis B Surface Antigen Negative (Negative)
[2023-11-07 04:52] LABS: HIV AB/AG Nonreactive (Nonreactive); HIV Num 1 0.04 S/CO (0.00-0.99); ~HepC Num1 0.15 S/CO (0.00-0.79); ~Hepatitis C Antibody Nonreactive (Nonreactive)
== END 2023-11-06 15:21 | disposition home or self-care (01) ==
LOC: HO.LAB 15:20
PROVIDERS: Visit Provider Advanced Practice Midwife
DX: Z11.4 Encounter for screening for human immunodeficiency virus [HIV] (principal); N89.8 Other specified noninflammatory disorders of vagina; Z20.2 Contact with and (suspected) exposure to infections with a predominantly sexual mode of transmission
CPT/HCPCS: 0353U; 86780; 86803; 87340; 87389

== ENCOUNTER 2024-01-01 09:01 | Emergency (ER) | payer MEDICAID, SELFPAY ==
--- NOTE | ~2024-01-01 | XR_ITS ---
EXAMINATION: XR CHEST CLINICAL INFORMATION: Chest pain. Palpitations. COMPARISON: None available. TECHNIQUE: 2 views of the chest were obtained. FINDINGS: The lungs are clear. The cardiomediastinal silhouette is normal in size. There is no pleural effusion or pneumothorax. No acute osseous abnormality. XR/XR chest 2V IMPRESSION: No acute cardiopulmonary findings.
[2024-01-01 09:10] VITALS: BP 148/87; PULSE 90; RESP 16; TEMP 36.3; O2SAT 98; BMI 40.8
--- NOTE | 2024-01-01 09:13 | ECG_ITS ---
Test Reason : cp Blood Pressure : / mmHG Vent. Rate : 086 BPM Atrial Rate : 086 BPM P-R Int : 172 ms QRS Dur : 072 ms QT Int : 368 ms P-R-T Axes : 052 057 056 degrees QTc Int : 440 ms Normal sinus rhythm Normal ECG No previous ECGs available Referred By: Alison Kruse Electronically Signed By:ARPITA GROVES MD
[2024-01-01 09:24] LABS: MANUAL DIFF FLAG NO
[2024-01-01 09:26] LABS: Basophils Percent Auto 0.4 % (0-2); Eosinophils Absolute Auto 0.1 X10*3/uL (0.0-0.4); Hematocrit 36.4 % (37.0-47.0); Hemoglobin 12.3 g/dl (12.0-16.0); Imm Gran Abs Auto 0.02 X10*3/uL (0.00-0.03); Imm Gran Pct Auto 0.2 % (0.0-0.4); Lymphocytes Percent Auto 24.6 % (20-40); Mean Corpuscular HGB Conc 33.8 g/dl (31.0-35.0); Mean Corpuscular Hemoglobin 29.1 pg (27.0-33.0); Mean Corpuscular Volume 86.1 fL (80.0-98.0); Mean Platelet Volume 9.2 fL (9.4-12.3); Monocytes Absolute Auto 0.7 X10*3/uL (0.1-1.2); Monocytes Percent Auto 8.5 % (2-11); Neutrophils Absolute Auto 5.4 x10*3/uL (2.0-8.3); Neutrophils Percent Auto 65.3 % (45-73); Platelet Count 351 X10*3/uL (160-400); Red Blood Count 4.23 X10*6/uL (4.20-5.50); White Blood Count 8.2 X10*3/uL (4.8-10.8)
[2024-01-01 09:40] LABS: Alanine Aminotransferase 15 U/L (0-31); Albumin Level 3.7 g/dL (3.5-5.0); Alkaline Phosphatase 74 U/L (39-117); Anion Gap 13 (12-20); Aspartate Amino Transferase 13 U/L (5-31); Bilirubin Direct 0.3 mg/dL (0.0-0.5); Bilirubin Total 0.6 mg/dL (0.0-1.0); Blood Urea Nitrogen 11 mg/dL (9-16); Calcium 9.1 mg/dL (8.4-10.2); Carbon Dioxide 22 mmol/L (22-29); Chloride 107 mmol/L (96-108); Creatinine Clr Calc Pharmacy 133.9; Estimated Glomerular Filt Rate > 60; Glucose Random 115 mg/dL (60-115); Potassium 3.9 mmol/L (3.3-5.1); Sodium 138 mmol/L (135-145); Total Protein 7.1 g/dL (6.5-8.0)
[2024-01-01 09:51] LABS: Troponin-I High Sensitivity < 2.7 ng/L (<3.5-17.0)
--- NOTE | 2024-01-01 10:04 | ED.CHESTPAIN ---
HPI - Chest Pain General Chief Complaint: Chest Pain Stated Complaint: chest pain Time Seen by Provider: 01/01/24 10:04 Source: patient, RN notes reviewed and old records reviewed Mode of arrival: ambulatory History of Present Illness HPI narrative: 33-year-old female with a past medical history of anxiety, depression, PTSD, COVID-19 two weeks ago, presenting to the ED complaining of intermittent palpitations and chest discomfort since COVID-19 diagnosis. Denies SOB, pedal edema, recent travel, sick contacts, oral OCPs. Admits quit cigarette smoking 2 months ago. Related Data Previous Rx's Medication Instructions Recorded cyclobenzaprine 10 mg tablet 10 mg PO TID PRN muscle spasm 30 12/15/22 days #30 tabs aripiprazole 10 mg tablet (Abilify) 10 mg PO BEDTIME #30 tabs 01/29/23 bupropion HCl 150 mg 24 hr tablet, 150 mg PO QAM #30 tabs 01/29/23 extended release buspirone 10 mg tablet See Rx Instructions .Route 01/29/23 .COMPLEX #120 tabs gabapentin 800 mg tablet 800 mg PO TID #90 tabs 01/29/23 acetaminophen 500 mg tablet 1,000 mg (2 x 500 mg) PO Q6H PRN 05/20/23 (Tylenol Extra Strength) pain #20 tabs ibuprofen 600 mg tablet 600 mg PO Q8H PRN pain #30 tabs 05/20/23 cyclobenzaprine 10 mg tablet 10 mg PO TID PRN muscle spasm #20 09/16/23 tabs ibuprofen 600 mg tablet 600 mg PO Q6H PRN pain #30 tabs 09/16/23 lidocaine 5 % topical patch 1 patch topical DAILY #30 ea 09/16/23 acetaminophen 500 mg tablet 500 mg PO Q4-6H PRN fever or pain 09/29/23 (Tylenol Extra Strength) #30 tabs ibuprofen 600 mg tablet 600 mg PO Q6H PRN pain #30 tabs 09/29/23 metronidazole 0.75 % (37.5 mg/5 1 appful vaginal BID 5 days #70 11/06/23 gram) vaginal gel grams Allergies Allergy/AdvReac Type Severity Reaction Status Date / Time apple Allergy Throat Verified 11/06/23 14:22 itches Review of Systems Review of Systems: Constitutional: No Weight loss, No Fever, No Chills ENT/Mouth: No Ear Pain, No Nasal Congestion, No sore throat, No Rhinorrhea, No Swallowing Difficulty Cardiovascular: +Chest Pain, No SOB, + palpitations Respiratory: No Cough, No Sputum, No Wheezing Gastrointestinal: No Nausea, No Vomiting, No Diarrhea, No Constipation, No Abdominal pain Musculoskeletal: No joint pain, No Myalgias, No Joint Swelling Skin: No Skin Lesions, No rash Neuro: No Weakness, No Numbness, No Paresthesias Yes all other systems are reviewed and are negative Constitutional: Constitutional: Reports as per [facility] Past Medical History Attestation statement: The following information was validated with the patient. Source: old records reviewed Medical History PTSD (post-traumatic stress disorder) Anxiety Depression Charcot Leanna Tooth muscular atrophy Family History Family History Mother Colon cancer Social History Social History Household Members: Family and Other Household Members Other:: Pt's son,sister and brother in law Housing: Apartment Patient Tobacco Use Status: Current someday Tobacco user Tobacco use type: Cigarette Second Hand Smoke Exposure: No Substance Use Type: Marijuana service: No Sexual orientation: Straight/Heterosexual Physical Exam Vital Signs: Vital Signs: Last Vital Signs Temp 97.4 F 01/01/24 09:10 Pulse 78 01/01/24 10:13 Resp 18 01/01/24 10:13 BP 120/67 01/01/24 10:13 Pulse Ox 99 01/01/24 10:13 O2 Del Method Room Air 01/01/24 10:13 BMI result Body Mass Index 40.8 Const: General: cooperative, healthy appearing and no acute distress Orientation/consciousness: patient oriented x3 Limitations: no limitations HEENT: Head: Yes normal to inspection and Yes atraumatic Ears: hearing grossly normal bilaterally General nose exam: Normal external nose present Face and sinus: Yes normal facial exam Eyes: General: appearance normal, both eyes and all related structures EOM: EOMs intact bilaterally Neck: Neck: Yes normal visual inspection and Yes no meningeal signs Resp: Effort & Inspection: normal respiratory effort and no respiratory distress Auscultation: clear to auscultation bilaterally, no crackles, no rhonchi and no wheezes Cardio: Rate: regular rate Heart sounds: S1 normal heart sound present and S2 normal heart sound present GI: Inspection: Yes normal to inspection Palpation (GI): Soft to palpation, nontender, no guarding and not rigid Skin: Rashes: no rashes Wounds: no wounds Neuro: General: patient oriented x3, tone normal and no meningeal signs Cranial nerves: Yes CN's II-XII intact bilaterally Gait exam (Neuro): Normal gait present Extrem: General: Yes normal to inspection, Yes no pedal edema and Yes no calf tenderness Course Course Course Narrative: -1114--labs reassuring, troponin negative, TSH WNL -UA negative -1210--CXR unremarkable Results discussed with patient including worrisome signs and symptoms and strict return precautions, recommended cardiology follow-up. Discussed when to return to the emergency department. They verbalized understanding and feel safe for discharge at this time. Medical Decision Making Medical Decision Making MDM Narrative: 33-year-old female with a past medical history of anxiety, depression, PTSD, COVID-19 two weeks ago, presenting to the ED complaining of intermittent palpitations and chest discomfort since COVID-19 diagnosis. On exam vital signs stable, NAD, nontoxic appearing physical exam as noted above, lungs CTA, no pedal edema. Concern for thyroid dysfunction/metabolic abnormalities vs atypical ACS. Rule out viral illness. Low suspicion for PE/DVT. Plan: EKG, labs, CXR, re-evaluate Please refer to course for remaining clinical decision making, interpretation of labs/imaging results, and discussions with consultants and/or family members. Differential Diagnosis Differential Diagnoses: The differential diagnosis associated with the presentation includes As above Admission/Observation Consideration of admission/observation: Escalation of care including admission/observation considered Lab Data [facility] Lab Attestation statement: I reviewed the patient's lab results. 01/01/24 09:20 01/01/24 09:20 Labs: Lab Results 01/01/24 01/01/24 Range/Units 09:20 10:41 WBC 8.2 (4.8-10.8) X10*3/uL RBC 4.23 (4.20-5.50) X10*6/uL Hgb 12.3 (12.0-16.0) g/dl Hct 36.4 L (37.0-47.0) % MCV 86.1 (80.0-98.0) fL MCH 29.1 (27.0-33.0) pg MCHC 33.8 (31.0-35.0) g/dl RDW 13.0 (11.0-16.0) % Plt Count 351 (160-400) X10*3/uL MPV 9.2 L (9.4-12.3) fL Immature Gran % (Auto) 0.2 (0.0-0.4) % Neut % (Auto) 65.3 (45-73) % Lymph % (Auto) 24.6 (20-40) % [place] % (Auto) 8.5 (2-11) % Eos % (Auto) 1.0 (0-4) % Baso % (Auto) 0.4 (0-2) % Lymph # (Auto) 2.0 (1.2-4.9) X10*3/uL [place] # (Auto) 0.7 (0.1-1.2) X10*3/uL Eos # (Auto) 0.1 (0.0-0.4) X10*3/uL Baso # (Auto) 0.0 (0.0-0.2) X10*3/uL Abs Immat Gran (auto) 0.02 (0.00-0.03) X10*3/uL Absolute Neuts (auto) 5.4 (2.0-8.3) x10*3/uL Absolute Nucleated RBC 0.000 (0.0-0.012) X10*3/uL Nucleated RBC % (auto) 0.0 (0.0-0.2) /100WBC Sodium 138 (135-145) mmol/L Potassium 3.9 (3.3-5.1) mmol/L Chloride 107 (96-108) mmol/L Carbon Dioxide 22 (22-29) mmol/L Anion Gap 13 (12-20) BUN 11 (9-16) mg/dL Creatinine 0.64 (0.5-1.4) mg/dL Estim Creat Clear Calc 133.9 Estimated GFR > 60 Random Glucose 115 (60-115) mg/dL Calcium 9.1 (8.4-10.2) mg/dL Total Bilirubin 0.6 (0.0-1.0) mg/dL Direct Bilirubin 0.3 (0.0-0.5) mg/dL AST 13 (5-31) U/L ALT 15 (0-31) U/L Alkaline Phosphatase 74 (39-117) U/L Troponin I High Sens < 2.7 (<3.5-17.0) ng/L B-Natriuretic Peptide 12 (<100) pg/mL Total Protein 7.1 (6.5-8.0) g/dL Albumin 3.7 (3.5-5.0) g/dL TSH 1.18 (0.32-4.0) uIU/mL Beta HCG, Quant < 2 mIU/mL Urine Color Yellow Urine Appearance Clear Urine pH 7.0 (5.0-9.0) Ur Specific [place] 1.020 (1.005-1.025) Urine Protein Negative (Neg-Trace) mg/dL Urine Glucose (UA) Negative (Negative) mg/dL Urine Ketones Negative (Negative) mg/dL Urine Blood Negative (Negative) Urine Nitrite Negative (Negative) Ur Leukocyte Esterase Negative (Negative) Urine RBC 0-2 (0-2) /HPF Urine WBC 0-5 (0-5) /HPF Ur Squamous Epith Cells 3-5 (0-2) /HPF Urine Bacteria Trace (None Seen) Hyaline Casts 0-2 (0-2) /LPF Independent Interpretation I performed an independent interpretation of an: EKG (My interpretation EKG normal sinus rhythm rate of 86. QRS duration 72. QTC 440. No STEMI.) Radiology Impression Discussion of test interpretation with radiology: I have reviewed the radiologist's reading. External Record Review External record reviewed: Inpatient record, Office record, Outpatient record, Prior outpatient labs, Prior outpatient radiology, Primary care record and Outside ED record Tests considered The following testing was considered but not selected: As above Discharge Plan Discharge Clinical Impression: Atypical chest pain, Palpitations Patient Disposition: Home, Self-Care Instructions: Heart Palpitations (DC), Noncardiac Chest Pain (ED) Additional Instructions: Your blood work and chest x-ray were reassuring Please follow-up with your doctor as well as Cardiology If symptoms persist or worsen pain becomes constant/unbearable return to the emergency department Prescriptions: No Action cyclobenzaprine 10 mg tablet 10 mg PO TID PRN (Reason: muscle spasm) 30 Days Qty: 30 1RF aripiprazole [Abilify] 10 mg tablet 10 mg PO BEDTIME Qty: 30 0RF bupropion HCl 150 mg tablet extended release 24 hr 150 mg PO QAM Qty: 30 0RF buspirone 10 mg tablet See Rx Instructions .ROUTE .COMPLEX Qty: 120 0RF Rx Instructions: 10 mg orally TID, and take 1 extra dose as needed for breakthrough anxiety gabapentin 800 mg tablet 800 mg PO TID Qty: 90 0RF lidocaine 5 % adhesive patch,medicated 1 patch topical DAILY Qty: 30 0RF Rx Instructions: leave on most painful area for up to 12 hrs ibuprofen 600 mg tablet 600 mg PO Q6H PRN (Reason: pain) Qty: 30 0RF cyclobenzaprine 10 mg tablet 10 mg PO TID PRN (Reason: muscle spasm) Qty: 20 0RF ibuprofen 600 mg tablet 600 mg PO Q8H PRN (Reason: pain) Qty: 30 0RF acetaminophen [Tylenol Extra Strength] 500 mg tablet 1,000 mg PO Q6H PRN (Reason: pain) Qty: 20 0RF acetaminophen [Tylenol Extra Strength] 500 mg tablet 500 mg PO Q4-6H PRN (Reason: fever or pain) Qty: 30 0RF ibuprofen 600 mg tablet 600 mg PO Q6H PRN (Reason: pain) Qty: 30 0RF metronidazole 0.75 % (37.5mg/5 gram) gel 1 appful vaginal BID 5 Days Qty: 70 2RF Rx Instructions: Use p.r.n. when clear symptoms of bacterial vaginosis are present. Referrals: [facility] [place], [place] Cardiovascular Services [Provider Group] Merly Carrington MD [Primary Care Provider] - Stand Alone Forms: Work/School Release Discharge Date/Time: 01/01/24 12:30
[2024-01-01 10:13] VITALS: BP 120/67; PULSE 78; RESP 18; O2SAT 99
[2024-01-01 10:50] LABS: Appearance Urine Clear; Color Urine Yellow; Glucose Urine UA Negative (Negative); Leukocyte Esterase Urine Negative (Negative); Nitrite Urine Negative (Negative); Urine Blood Negative (Negative); Urine Ketones Negative (Negative); Urine Protein Negative (Neg-Trace)
[2024-01-01 10:52] LABS: B Type Natriuretic Peptide 12 pg/mL (<100)
[2024-01-01 10:52] LABS: Bacteria Urine Trace (None Seen); Hyaline Casts Urine 0-2 /LPF (0-2); RBC Urine 0-2 /HPF (0-2); WBC Urine 0-5 /HPF (0-5)
[2024-01-01 11:10] LABS: HCG Quantitative < 2 mIU/mL; TSH reflex Free T4 1.18 uIU/mL (0.32-4.0)
== END 2024-01-01 12:30 | disposition home or self-care (01) ==
PROVIDERS: Physician Assistant; Emergency Provider Emergency Medicine Emergency Medical Services; PCP Internal Medicine
DX: R07.89 Other chest pain (principal); R00.2 Palpitations; R06.02 Shortness of breath; Z79.899 Other long term (current) drug therapy
CPT/HCPCS: 36415; 71046; 80048; 80076; 81001; 83880; 84443; 84484; 84702; 85025; 93005; 99283; 99285

== ENCOUNTER → 2024-01-01 09:13 | Outpatient (BNV) | payer MEDICAID, SELFPAY | PROVIDERS: Emergency Provider Emergency Medicine Emergency Medical Services; PCP Internal Medicine; Visit Provider Internal Medicine Cardiovascular Disease | DX: R07.9 Chest pain, unspecified (principal) | CPT/HCPCS: 93010 ==

== ENCOUNTER 2024-02-10 11:55 | Outpatient (REF) | payer MEDICAID, SELFPAY ==
[2024-02-10 13:52] LABS: Alanine Aminotransferase 15 U/L (0-31); Albumin Level 3.9 g/dL (3.5-5.0); Alkaline Phosphatase 86 U/L (39-117); Anion Gap 10 (12-20); Aspartate Amino Transferase 15 U/L (5-31); Bilirubin Total 0.6 mg/dL (0.0-1.0); Blood Urea Nitrogen 11 mg/dL (9-16); Calcium 9.2 mg/dL (8.4-10.2); Carbon Dioxide 26 mmol/L (22-29); Chloride 106 mmol/L (96-108); Estimated Glomerular Filt Rate > 60; Glucose Random 99 mg/dL (60-115); Sodium 138 mmol/L (135-145); Total Protein 7.5 g/dL (6.5-8.0)
[2024-02-10 14:08] LABS: Thyroid Stimulating Hormone 1.66 uIU/mL (0.32-4.0)
== END 2024-02-10 11:56 | disposition home or self-care (01) ==
LOC: HO.10HDL 11:55
PROVIDERS: Visit Provider Internal Medicine
DX: G56.02 Carpal tunnel syndrome, left upper limb (principal); M25.361 Other instability, right knee; M54.50 Low back pain, unspecified; R63.5 Abnormal weight gain
CPT/HCPCS: 36415; 80053; 84443

== ENCOUNTER 2024-05-05 11:21 | Outpatient (REF) | payer MEDICAID, SELFPAY ==
[2024-05-05 13:49] LABS: Alanine Aminotransferase 22 U/L (0-31); Albumin Level 3.9 g/dL (3.5-5.0); Alkaline Phosphatase 87 U/L (39-117); Anion Gap 10 (12-20); Aspartate Amino Transferase 16 U/L (5-31); Bilirubin Total 0.4 mg/dL (0.0-1.0); Blood Urea Nitrogen 9 mg/dL (9-16); Calcium 9.4 mg/dL (8.4-10.2); Carbon Dioxide 26 mmol/L (22-29); Chloride 107 mmol/L (96-108); Estimated Glomerular Filt Rate > 60; Glucose Random 108 mg/dL (60-115); Sodium 139 mmol/L (135-145); Total Protein 7.3 g/dL (6.5-8.0)
[2024-05-05 14:06] LABS: Thyroid Stimulating Hormone 1.03 uIU/mL (0.32-4.0)
== END 2024-05-05 11:22 | disposition home or self-care (01) ==
LOC: HO.10HDL 11:21
PROVIDERS: Visit Provider Internal Medicine
DX: G56.02 Carpal tunnel syndrome, left upper limb (principal); M25.361 Other instability, right knee; M54.50 Low back pain, unspecified; R63.5 Abnormal weight gain
CPT/HCPCS: 36415; 80053; 84443

== ENCOUNTER 2024-06-12 10:01 | Emergency (ER) | payer MEDICAID, SELFPAY ==
[2024-06-12 10:08] VITALS: BP 144/90; PULSE 85; RESP 20; TEMP 36.8; O2SAT 98; BMI 42.5
[2024-06-12 10:22] LABS: MANUAL DIFF FLAG NO
[2024-06-12 10:23] LABS: Basophils Percent Auto 0.4 % (0-2); Eosinophils Absolute Auto 0.1 X10*3/uL (0.0-0.4); Eosinophils Percent Auto 1.2 % (0-4); Hematocrit 37.6 % (37.0-47.0); Hemoglobin 12.7 g/dl (12.0-16.0); Imm Gran Abs Auto 0.03 X10*3/uL (0.00-0.03); Imm Gran Pct Auto 0.3 % (0.0-0.4); Lymphocytes Absolute Auto 2.3 X10*3/uL (1.2-4.9); Lymphocytes Percent Auto 23.9 % (20-40); Mean Corpuscular HGB Conc 33.8 g/dl (31.0-35.0); Mean Corpuscular Hemoglobin 28.9 pg (27.0-33.0); Mean Corpuscular Volume 85.6 fL (80.0-98.0); Mean Platelet Volume 8.8 fL (9.4-12.3); Monocytes Absolute Auto 0.8 X10*3/uL (0.1-1.2); Neutrophils Absolute Auto 6.3 x10*3/uL (2.0-8.3); Neutrophils Percent Auto 66.2 % (45-73); Platelet Count 352 X10*3/uL (160-400); Red Blood Count 4.39 X10*6/uL (4.20-5.50); Red Cell Distribution Width 13.5 % (11.0-16.0); White Blood Count 9.4 X10*3/uL (4.8-10.8)
[2024-06-12 10:48] LABS: Alanine Aminotransferase 17 U/L (0-31); Albumin Level 3.8 g/dL (3.5-5.0); Alkaline Phosphatase 88 U/L (39-117); Anion Gap 11 (12-20); Aspartate Amino Transferase 15 U/L (5-31); Bilirubin Direct 0.2 mg/dL (0.0-0.5); Bilirubin Total 0.9 mg/dL (0.0-1.0); Blood Urea Nitrogen 8 mg/dL (9-16); Calcium 8.7 mg/dL (8.4-10.2); Carbon Dioxide 21 mmol/L (22-29); Chloride 106 mmol/L (96-108); Creatinine Clr Calc Pharmacy 119.1; Estimated Glomerular Filt Rate > 60; Glucose Random 114 mg/dL (60-115); Sodium 134 mmol/L (135-145); Total Protein 7.4 g/dL (6.5-8.0)
--- NOTE | 2024-06-12 10:52 | ED_ITS ---
HPI - General Adult General Chief complaint: General Medical Stated complaint: Dizzy/Body pain Time Seen by Provider: 06/12/24 10:18 Source: patient and old records reviewed Mode of arrival: ambulatory Limitations: no limitations History of Present Illness ED Provider: TRISHA SYED narrative: 34 yo female with PMH of CMT, chronic PTSD, MDD, chronic intermittent bouts of whole body pain that is burning in nature and brought on by stress. She notes her neurologist does not manage these bouts. She is having one now since yesterday brought on by stress. She denies fevers, tick bites, travel. She has had this before. She tried flexeril and gabapentin no relief. She states her skin is on fire and hurts to even move. MD complaint: whole body pain Onset (ago): day(s) (1) Location: left, right, upper extremity and lower extremity Radiation: non-radiation Severity: severe Quality: burning and aching Pain Consistency: constant Relieving factors: none Exacerbating factors: other (stress) Associated symptoms: nausea/vomiting Treatments prior to arrival: other (gabapentin and flexeril) Related Data Previous Rx's ?Medication ?Instructions ?Recorded cyclobenzaprine 10 mg tablet 10 mg PO TID PRN muscle spasm 30 12/15/22 days #30 tabs aripiprazole 10 mg tablet (Abilify) 10 mg PO BEDTIME #30 tabs 01/29/23 bupropion HCl 150 mg 24 hr tablet, 150 mg PO QAM #30 tabs 01/29/23 extended release buspirone 10 mg tablet See Rx Instructions .Route 01/29/23 .COMPLEX #120 tabs gabapentin 800 mg tablet 800 mg PO TID #90 tabs 01/29/23 acetaminophen 500 mg tablet 1,000 mg (2 x 500 mg) PO Q6H PRN 05/20/23 (Tylenol Extra Strength) pain #20 tabs ibuprofen 600 mg tablet 600 mg PO Q8H PRN pain #30 tabs 05/20/23 cyclobenzaprine 10 mg tablet 10 mg PO TID PRN muscle spasm #20 09/16/23 tabs ibuprofen 600 mg tablet 600 mg PO Q6H PRN pain #30 tabs 09/16/23 lidocaine 5 % topical patch 1 patch topical DAILY #30 ea 09/16/23 acetaminophen 500 mg tablet 500 mg PO Q4-6H PRN fever or pain 09/29/23 (Tylenol Extra Strength) #30 tabs ibuprofen 600 mg tablet 600 mg PO Q6H PRN pain #30 tabs 09/29/23 metronidazole 0.75 % (37.5 mg/5 1 appful vaginal BID 5 days #70 11/06/23 gram) vaginal gel grams morphine 15 mg immediate release 15 mg PO Q6H PRN pain #10 tabs 06/12/24 tablet Allergies Allergy/AdvReac Type Severity Reaction Status Date / Time apple Allergy Throat Verified 06/12/24 10:11 itches Review of Systems 2 Review of Systems: Constitutional : No Fever, No Chills, No Fatigue ENT/Mouth : No sore throat, No Rhinorrhea Eyes: No Eye Pain, No Swelling, No Redness Cardiovascular : No Chest Pain, No SOB, No Dyspnea on Exertion Respiratory : No Cough, No Sputum Gastrointestinal : pos Nausea, No Vomiting, No Diarrhea, No abdominal Pain Genitourinary : No Dysuria, No Urinary Frequency, No Hematuria, Musculoskeletal : No joint pain, pos Myalgias, No Joint Swelling Skin : No Skin Lesions, No rash Neuro : No Weakness, No Numbness, No Dizziness, no Headache Psych : pos Anxiety/Panic, No Depression All other systems reviewed and are negative [facility] Past Medical History Attestation statement: The following information was validated with the patient. Source: old records reviewed Medical History PTSD (post-traumatic stress disorder) Anxiety Depression Charcot Leanna Tooth muscular atrophy Family History Family History Mother Colon cancer Social History Social History Household Members: Family and Other Household Members Other:: Pt's son,sister and brother in law Housing: Apartment Patient Tobacco Use Status: Current someday Tobacco user Tobacco use type: Cigarette Second Hand Smoke Exposure: No Substance Use Type: Marijuana Advance Directives: No service: No Sexual orientation: Straight/Heterosexual Physical Exam ED Vital Signs: Vital Signs - 24 hr 06/12/24 10:08 06/12/24 12:00 06/12/24 15:29 Temperature 98.3 F 97.8 F 97.8 F Pulse Rate 85 85 83 Respiratory Rate 20 18 18 Blood Pressure 144/90 H 112/70 121/72 Pulse Oximetry 98 96 98 Oxygen Delivery Method Room Air Room Air Room Air BMI result Body Mass Index 42.5 Appearance: Alert. Oriented X3. No acute distress. Eyes: Pupils equal, round and reactive to light. ENT: Pharynx normal. Neck: Normal inspection. Neck supple. CVS: Normal heart rate and rhythm. Pulses normal. Respiratory: No respiratory distress. Breath sounds normal. Abdomen: Soft and nontender. Skin: Skin warm and dry. Normal skin color. Normal skin turgor. Extremities: No lower extremity edema. No calf ttp diffusely ttp everywhere with skin hyperesthesia Neuro: Oriented X 3. No motor deficit. No sensory deficit. Medications Administered Discontinued Medications Generic Name Dose Route Start Last Admin Trade Name Freq PRN Reason Stop Dose Admin Droperidol 1.25 mg 06/12/24 13:27 06/12/24 13:32 Droperidol 5 Mg/2 Ml Vial IVPUSH 06/12/24 13:28 1.25 mg ONCE ONE Administration Hydromorphone HCl 1 mg 06/12/24 12:13 06/12/24 12:19 Hydromorphone Hcl 1 Mg/Ml Syringe IVPUSH 06/12/24 12:14 1 mg ONCE ONE Administration Protocol Sodium Chloride 1,000 mls @ 999 mls/hr 06/12/24 10:17 06/12/24 14:14 Ns IV 06/12/24 11:17 Infused .Q1H1M ONE Infusion Lorazepam 1 mg 06/12/24 10:17 06/12/24 11:04 Lorazepam 2 Mg/Ml Vial IVPUSH 06/12/24 10:18 1 mg ONCE ONE Administration Ondansetron HCl 4 mg 06/12/24 10:17 06/12/24 11:04 Ondansetron Hcl 4 Mg/2 Ml Vial IVPUSH 06/12/24 10:18 4 mg ONCE ONE Administration Oxycodone HCl 10 mg 06/12/24 14:11 06/12/24 14:14 Oxycodone Hcl Immed Release 5 Mg Tablet PO 06/12/24 14:12 10 mg ONCE ONE Administration Medical Decision Making Medical Decision Making MDM Narrative: 34 yo female with PMH of CMT, chronic PTSD, MDD, chronic intermittent bouts of whole body pain here with c/o whole body pain and burning since yesterday brought on by stress similar episodes in past no fevers, chest pain, dyspnea at this time will obtain basic labs, hydrate, provide IV ativan and reassess. Will refer to pain management given chronic pain. Differential Diagnosis Differential Diagnoses: The differential diagnosis associated with the presentation includes myalgias, neuropathy, stress Admission/Observation Consideration of admission/observation: Escalation of care including admission/observation considered feels better stable for DC Lab Data MDM Lab Attestation statement: I reviewed the patient's lab results. 06/12/24 10:17 06/12/24 10:17 Labs: Lab Results 06/12/24 Range/Units 10:17 WBC 9.4 (4.8-10.8) X10*3/uL RBC 4.39 (4.20-5.50) X10*6/uL Hgb 12.7 (12.0-16.0) g/dl Hct 37.6 (37.0-47.0) % MCV 85.6 (80.0-98.0) fL MCH 28.9 (27.0-33.0) pg MCHC 33.8 (31.0-35.0) g/dl RDW 13.5 (11.0-16.0) % Plt Count 352 (160-400) X10*3/uL MPV 8.8 L (9.4-12.3) fL Immature Gran % (Auto) 0.3 (0.0-0.4) % Neut % (Auto) 66.2 (45-73) % Lymph % (Auto) 23.9 (20-40) % [place] % (Auto) 8.0 (2-11) % Eos % (Auto) 1.2 (0-4) % Baso % (Auto) 0.4 (0-2) % Lymph # (Auto) 2.3 (1.2-4.9) X10*3/uL [place] # (Auto) 0.8 (0.1-1.2) X10*3/uL Eos # (Auto) 0.1 (0.0-0.4) X10*3/uL Baso # (Auto) 0.0 (0.0-0.2) X10*3/uL Abs Immat Gran (auto) 0.03 (0.00-0.03) X10*3/uL Absolute Neuts (auto) 6.3 (2.0-8.3) x10*3/uL Absolute Nucleated RBC 0.000 (0.0-0.012) X10*3/uL Nucleated RBC % (auto) 0.0 (0.0-0.2) /100WBC Sodium 134 L (135-145) mmol/L Potassium 4.0 (3.3-5.1) mmol/L Chloride 106 (96-108) mmol/L Carbon Dioxide 21 L (22-29) mmol/L Anion Gap 11 L (12-20) BUN 8 L (9-16) mg/dL Creatinine 0.73 (0.5-1.4) mg/dL Estim Creat Clear Calc 119.1 Estimated GFR > 60 Random Glucose 114 (60-115) mg/dL Calcium 8.7 D (8.4-10.2) mg/dL Magnesium 2.0 (1.6-2.6) mg/dL Total Bilirubin 0.9 (0.0-1.0) mg/dL Direct Bilirubin 0.2 (0.0-0.5) mg/dL AST 15 (5-31) U/L ALT 17 (0-31) U/L Alkaline Phosphatase 88 (39-117) U/L Total Creatine Kinase 90 (26-140) U/L Total Protein 7.4 (6.5-8.0) g/dL Albumin 3.8 (3.5-5.0) g/dL Influenza Type A (PCR) NEGATIVE (Negative) Influenza Type B (PCR) NEGATIVE (Negative) RSV RNA Qual (PCR) NEGATIVE (Negative) SARS-CoV-2 RNA (RT-PCR) NEGATIVE (Negative) External Record Review External record reviewed: Inpatient record Prescription Management I considered prescription management with: Pain Medication and Other Critical Care Time Critical Care Time Critical Care Time: Yes Total Critical Care Time: 40 Attestation: repeat IV medications for pain with improvement in pain x 2, repeat assessments, review of records. I attest to this time spent taking care of the patient Discharge Plan Discharge Clinical Impression: Myalgia, Chronic pain syndrome Patient Disposition: Home, Self-Care Instructions: Chronic Pain (ED), Musculoskeletal Pain (ED) Additional Instructions: please follow up with your doctor and pain management return for any worsening symptoms or concerns [facility] [phone] tel:[phone] [place] [address] Drive, [address] [place] [address] Prescriptions: New morphine 15 mg tablet 15 mg PO Q6H PRN (Reason: pain) Qty: 10 0RF Rx Instructions: partial fill okay; Partial Fill upon patient request. No Action cyclobenzaprine 10 mg tablet 10 mg PO TID PRN (Reason: muscle spasm) 30 Days Qty: 30 1RF aripiprazole [Abilify] 10 mg tablet 10 mg PO BEDTIME Qty: 30 0RF bupropion HCl 150 mg tablet extended release 24 hr 150 mg PO QAM Qty: 30 0RF buspirone 10 mg tablet See Rx Instructions .ROUTE .COMPLEX Qty: 120 0RF Rx Instructions: 10 mg orally TID, and take 1 extra dose as needed for breakthrough anxiety gabapentin 800 mg tablet 800 mg PO TID Qty: 90 0RF lidocaine 5 % adhesive patch,medicated 1 patch topical DAILY Qty: 30 0RF Rx Instructions: leave on most painful area for up to 12 hrs ibuprofen 600 mg tablet 600 mg PO Q6H PRN (Reason: pain) Qty: 30 0RF cyclobenzaprine 10 mg tablet 10 mg PO TID PRN (Reason: muscle spasm) Qty: 20 0RF ibuprofen 600 mg tablet 600 mg PO Q8H PRN (Reason: pain) Qty: 30 0RF acetaminophen [Tylenol Extra Strength] 500 mg tablet 1,000 mg PO Q6H PRN (Reason: pain) Qty: 20 0RF acetaminophen [Tylenol Extra Strength] 500 mg tablet 500 mg PO Q4-6H PRN (Reason: fever or pain) Qty: 30 0RF ibuprofen 600 mg tablet 600 mg PO Q6H PRN (Reason: pain) Qty: 30 0RF metronidazole 0.75 % (37.5mg/5 gram) gel 1 appful vaginal BID 5 Days Qty: 70 2RF Rx Instructions: Use p.r.n. when clear symptoms of bacterial vaginosis are present. Stand Alone Forms: Work/School Release Interventions: ED Discharge Assessment Last Done: 06/12/24 15:29 Discharge Date/Time: 06/12/24 15:31 Print Language: Yakut
[2024-06-12] MEDS: LORazepam 2 MG/ML VIAL 1 MG IVPUSH (11:04)
[2024-06-12] MEDS: ondansetron HCL 4 MG/2 ML VIAL IVPUSH (11:04)
[2024-06-12] MEDS: 0.9 % Sodium Chloride 1,000 ML 999 ML IV (11:04)
[2024-06-12 11:11] LABS: Influenza A PCR NEGATIVE (Negative); Influenza B PCR NEGATIVE (Negative); Resp Syncy Virus RNA Qual PCR NEGATIVE (Negative); SARS COV2 PCR INHOUSE NEGATIVE (Negative)
--- NOTE | 2024-06-12 11:21 | PC.NURSE ---
patient a&ox3, vss, pt very difficult stick, multiple nurses attempting access. 22g iv inserted to rt hand, ivf running per order, pt medicated per order, call webster within reach, will continue to monitor
[2024-06-12 12:00] VITALS: BP 112/70; PULSE 85; RESP 18; TEMP 36.6; O2SAT 96
[2024-06-12] MEDS: HYDROmorphone HCl 1 MG/ML SYRINGE IVPUSH (12:19)
--- NOTE | 2024-06-12 12:20 | PC.NURSE ---
Addendum entered by Rosalee Westfall RN 06/12/24 13:08: ivf continue to run slowly through 22g Original Note: pt medicated per order for 10/10 generalized pain
[2024-06-12] MEDS: droPERidol 5 MG/2 ML VIAL 1.25 MG IVPUSH (13:32)
--- NOTE | 2024-06-12 13:33 | PC.NURSE ---
pt medicated per order
[2024-06-12] MEDS: oxyCODONE HCl Immed Release 5 MG TABLET 10 MG PO (14:14)
[2024-06-12 15:29] VITALS: BP 121/72; PULSE 83; RESP 18; TEMP 36.6; O2SAT 98
== END 2024-06-12 15:31 | disposition home or self-care (01) ==
PROVIDERS: Emergency Provider Emergency Medicine; PCP Internal Medicine
DX: R42 Dizziness and giddiness (principal); M79.10 Myalgia, unspecified site; R11.2 Nausea with vomiting, unspecified; G89.4 Chronic pain syndrome; F17.200 Nicotine dependence, unspecified, uncomplicated; Z03.818 Encounter for observation for suspected exposure to other biological agents ruled out; Z79.899 Other long term (current) drug therapy
CPT/HCPCS: 0241U; 80048; 80076; 82550; 83735; 85025; 96360; 96374; 96375; 96376; 99284; J1170; J1790; J2060; J2405

== ENCOUNTER 2024-07-11 11:18 | Emergency (ER) | payer MEDICAID, SELFPAY ==
--- NOTE | ~2024-07-11 | XR_ITS ---
EXAMINATION: XR CHEST CLINICAL INFORMATION: Chest pain. COMPARISON: 01/01/2024 TECHNIQUE: 2 views of the chest were obtained. FINDINGS: The lungs are well expanded. No focal consolidation. No pleural effusion. Cardiac silhouette is unchanged. XR/XR chest 2V IMPRESSION: No acute abnormality.
--- NOTE | 2024-07-11 11:23 | ECG_ITS ---
Test Reason : chest pain Blood Pressure : / mmHG Vent. Rate : 100 BPM Atrial Rate : 100 BPM P-R Int : 166 ms QRS Dur : 074 ms QT Int : 332 ms P-R-T Axes : 046 051 049 degrees QTc Int : 428 ms Normal sinus rhythm Nonspecific T wave abnormality Abnormal ECG When compared with ECG of 01-JAN-2024 09:05, No significant change was found Referred By: Nicol Sims Electronically Signed By:CECI GRANDE
[2024-07-11 11:31] VITALS: BP 134/76; PULSE 99; RESP 18; TEMP 36.3; O2SAT 98; BMI 42.7
--- NOTE | 2024-07-11 11:33 | ED.GENADULT ---
HPI - General Adult General Chief complaint: Chest Pain Stated complaint: l arm pain into chest area Time Seen by Provider: 07/11/24 17:53 Source: patient Mode of arrival: ambulatory Limitations: no limitations History of Present Illness ED Provider: Gualberto Peck PA-C HPI narrative: 34-year-old right-hand dominant female with history of Dsouacn-Amzfy-Yrerf disease, PTSD, depression, who presents to the ER for evaluation of left shoulder pain that has been worsening for the last 4 or 5 days. Patient reports that she was using the left arm for her usual activities of daily living when she was having worsening pain with pulling and pushing movements. The pain is excruciating at times. It is located in the anterior left shoulder and radiates down the entire arm to the fingers. She reports that the pain started to radiate up into the neck and into the left side of her chest prompting evaluation in the emergency department today. Patient reports frequent bouts of her CMT flaring up that causes entire body pain but this feels much different. MD complaint: Left shoulder pain Onset (ago): day(s) (5) Location: left and upper extremity Radiation: neck, distal and other (Chest) Severity: severe Quality: stabbing and sharp Pain Consistency: constant Relieving factors: rest Exacerbating factors: movement Associated symptoms: denies other symptoms Treatments prior to arrival: other (Gabapentin and Flexeril) Related Data Previous Rx's ?Medication ?Instructions ?Recorded cyclobenzaprine 10 mg tablet 10 mg PO TID PRN muscle spasm 30 12/15/22 days #30 tabs aripiprazole 10 mg tablet (Abilify) 10 mg PO BEDTIME #30 tabs 01/29/23 bupropion HCl 150 mg 24 hr tablet, 150 mg PO QAM #30 tabs 01/29/23 extended release buspirone 10 mg tablet See Rx Instructions .Route 01/29/23 .COMPLEX #120 tabs gabapentin 800 mg tablet 800 mg PO TID #90 tabs 01/29/23 acetaminophen 500 mg tablet 1,000 mg (2 x 500 mg) PO Q6H PRN 05/20/23 (Tylenol Extra Strength) pain #20 tabs ibuprofen 600 mg tablet 600 mg PO Q8H PRN pain #30 tabs 05/20/23 cyclobenzaprine 10 mg tablet 10 mg PO TID PRN muscle spasm #20 09/16/23 tabs ibuprofen 600 mg tablet 600 mg PO Q6H PRN pain #30 tabs 09/16/23 lidocaine 5 % topical patch 1 patch topical DAILY #30 ea 09/16/23 acetaminophen 500 mg tablet 500 mg PO Q4-6H PRN fever or pain 09/29/23 (Tylenol Extra Strength) #30 tabs ibuprofen 600 mg tablet 600 mg PO Q6H PRN pain #30 tabs 09/29/23 metronidazole 0.75 % (37.5 mg/5 1 appful vaginal BID 5 days #70 11/06/23 gram) vaginal gel grams morphine 15 mg immediate release 15 mg PO Q6H PRN pain #10 tabs 06/12/24 tablet ketorolac 10 mg tablet 10 mg PO Q8H PRN pain 3 days #9 07/11/24 tabs oxycodone 5 mg tablet 5 mg PO Q8H PRN severe pain (scale 07/11/24 score 7-10) #6 tabs Allergies Allergy/AdvReac Type Severity Reaction Status Date / Time apple Allergy Throat Verified 07/11/24 11:34 itches Review of Systems Review of Systems: Yes all other systems are reviewed and are negative PMF Past Medical History Medical History PTSD (post-traumatic stress disorder) Anxiety Depression Charcot Leanna Tooth muscular atrophy Family History Family History Mother Colon cancer Social History Social History Household Members: Family and Other Household Members Other:: Pt's son,sister and brother in law Housing: Apartment Patient Tobacco Use Status: Current someday Tobacco user Tobacco use type: Cigarette Second Hand Smoke Exposure: No Substance Use Type: Marijuana service: No Sexual orientation: Straight/Heterosexual Physical Exam ED Vital Signs: Vital Signs - 24 hr 07/11/24 17:14 07/11/24 18:45 07/11/24 18:57 Temperature 97.2 F 97.2 F Pulse Rate 69 68 68 Respiratory Rate 18 16 16 Blood Pressure 134/84 125/80 125/80 Pulse Oximetry 100 99 99 Oxygen Delivery Method Room Air Room Air Room Air BMI result Body Mass Index 42.7 Appearance: Alert. Oriented X3. No acute distress. Head: normocephalic, atraumatic. Eyes: Pupils equal, round and reactive to light. ENT: Pharynx normal. No tonsillar swelling or exudate. Neck: Normal inspection. Neck supple. No midline tenderness. Full range of motion. CVS: Normal heart rate and rhythm. Pulses normal. Respiratory: No respiratory distress. Breath sounds normal. Abdomen: Soft and nontender. +BS x4 Skin: Skin warm and dry. Normal skin color. Normal skin turgor. No rashes. Extremities: No lower extremity edema. No joint swelling. Normal inspection of the left shoulder. There is tenderness of the AC joint and anterior shoulder. Limited passive abduction due to pain. Positive empty can test. Decreased property damage claims adjustor strength in the left hand, sensation is intact. Neurovascularly intact distally. No tenderness of the left scapula. There is some soft tissue tenderness of the upper trapezius on the left side. Neuro/psych: Oriented X 3. No motor deficit. No sensory deficit. CN II-XII intact. Normal speech and cognition. Course Course Course Narrative: RME performed by Nicol Sims PA-C. Patient is a 34 year old assigned female at presenting to the emergency department with arm, neck, and chest pain. Patient states over the last few days she has had left sided arm, neck, and chest pain. Patient states that she has charco leanna tooth muscular atrophy but this pain feels different. Detailed physical exam and review of systems are deferred to the humanities department chair. EKG, labs, swabs ordered. Patient placed back in the waiting room pending room availability and results. Medications Administered Discontinued Medications Generic Name Dose Route Start Last Admin Trade Name Freq PRN Reason Stop Dose Admin Ketorolac Tromethamine 30 mg 07/11/24 18:11 07/11/24 18:41 Ketorolac Tromethamine 30 Mg/Ml Vial IM 07/11/24 18:12 30 mg ONCE ONE Administration Oxycodone HCl 5 mg 07/11/24 18:11 07/11/24 18:41 Oxycodone Hcl Immed Release 5 Mg Tablet PO 07/11/24 18:12 5 mg ONCE ONE Administration Medical Decision Making Medical Decision Making MDM Narrative: 34-year-old female with history of Dadgesq-Muccz-Uocpl, PTSD, depression, frequent bouts of entire body pain due to her CMT who presents to the ER for evaluation of left-sided shoulder pain for the last 4 or 5 days. Pain is radiating to the left neck and left chest. No specific trauma event. Pain is significantly worse with movement of the left upper extremity. Pain radiates into the hands and fingertips. Possible radiculopathy. No headache. Doubt dissection. Lab workup, EKG, chest x-ray were performed from triage. Workup was unremarkable. Patient well known to the ER and often comes with episodes of pain. Given toradol and oxycodone in the ER with improvement. Will d/c home w/ pain control and ortho referred for shoulder pain. patient agrees w/ plan. she sees her neurologist tomorrow. Differential Diagnosis Differential Diagnoses: The differential diagnosis associated with the presentation includes Left shoulder ligamentous injury/rotator cuff injury, AC joint separation, cervical radiculopathy, bursitis, less likely cardiac etiology Lab Data MDM Lab Attestation statement: I reviewed the patient's lab results. No leukocytosis, normal H&H, negative troponin 07/11/24 11:59 07/11/24 11:59 Labs: Lab Results 07/11/24 Range/Units 11:59 WBC 7.8 (4.8-10.8) X10*3/uL RBC 4.35 (4.20-5.50) X10*6/uL Hgb 12.6 (12.0-16.0) g/dl Hct 38.3 (37.0-47.0) % MCV 88.0 (80.0-98.0) fL MCH 29.0 (27.0-33.0) pg MCHC 32.9 (31.0-35.0) g/dl RDW 13.7 (11.0-16.0) % Plt Count 237 D (160-400) X10*3/uL MPV 10.0 (9.4-12.3) fL Immature Gran % (Auto) 0.4 (0.0-0.4) % Neut % (Auto) 60.7 (45-73) % Lymph % (Auto) 28.2 (20-40) % [place] % (Auto) 8.7 (2-11) % Eos % (Auto) 1.4 (0-4) % Baso % (Auto) 0.6 (0-2) % Lymph # (Auto) 2.2 (1.2-4.9) X10*3/uL [place] # (Auto) 0.7 (0.1-1.2) X10*3/uL Eos # (Auto) 0.1 (0.0-0.4) X10*3/uL Baso # (Auto) 0.1 (0.0-0.2) X10*3/uL Abs Immat Gran (auto) 0.03 (0.00-0.03) X10*3/uL Absolute Neuts (auto) 4.7 (2.0-8.3) x10*3/uL Absolute Nucleated RBC 0.000 (0.0-0.012) X10*3/uL Nucleated RBC % (auto) 0.0 (0.0-0.2) /100WBC Smear Tech's Comments VERIFIED Sodium 139 (135-145) mmol/L Potassium 3.8 (3.3-5.1) mmol/L Chloride 111 H (96-108) mmol/L Carbon Dioxide 21 L (22-29) mmol/L Anion Gap 11 L (12-20) BUN 7 L (9-16) mg/dL Creatinine 0.81 (0.5-1.4) mg/dL Estim Creat Clear Calc 107.7 Estimated GFR > 60 Random Glucose 130 H (60-115) mg/dL Calcium 8.8 (8.4-10.2) mg/dL Magnesium 2.0 (1.6-2.6) mg/dL Total Bilirubin 0.4 (0.0-1.0) mg/dL AST 12 (5-31) U/L ALT 13 (0-31) U/L Alkaline Phosphatase 84 (39-117) U/L Troponin I High Sens < 2.7 (<3.5-17.0) ng/L Total Protein 6.9 (6.5-8.0) g/dL Albumin 3.6 (3.5-5.0) g/dL Urine Color Yellow Urine Appearance Clear Urine pH 6.5 (5.0-9.0) Ur Specific [place] 1.020 (1.005-1.025) Urine Protein Negative (Neg-Trace) mg/dL Urine Glucose (UA) Negative (Negative) mg/dL Urine Ketones Trace (Negative) mg/dL Urine Blood Negative (Negative) Urine Nitrite Negative (Negative) Ur Leukocyte Esterase Small (1+) H (Negative) Urine RBC 0-2 (0-2) /HPF Urine WBC 0-5 (0-5) /HPF Ur Squamous Epith Cells 3-5 (0-2) /HPF Urine Bacteria 1+ (None Seen) Hyaline Casts 0-2 (0-2) /LPF Influenza Type A (PCR) NEGATIVE (Negative) Influenza Type B (PCR) NEGATIVE (Negative) RSV RNA Qual (PCR) NEGATIVE (Negative) SARS-CoV-2 RNA (RT-PCR) NEGATIVE (Negative) Independent Interpretation I performed an independent interpretation of an: EKG and Plain X-Ray Interpretation: EKG with normal sinus rhythm, ventricular rate 100 beats per minute, normal QTC, normal QRS, no ST segment elevations or depressions. Chest x-ray is clear without any focal infiltrate or effusion, normal appearance of the left shoulder Radiology Impression Discussion of test interpretation with radiology: I have reviewed the radiologist's reading. Radiologist Impression: EXAMINATION: XR CHEST CLINICAL INFORMATION: Chest pain. COMPARISON: 01/01/2024 TECHNIQUE: 2 views of the chest were obtained. FINDINGS: The lungs are well expanded. No focal consolidation. No pleural effusion. Cardiac silhouette is unchanged. XR/XR chest 2V IMPRESSION: No acute abnormality. External Record Review External record reviewed: Outpatient record, Prior outpatient labs and Prior outpatient radiology Tests considered The following testing was considered but not selected: X-ray of the shoulder considered however low clinical suspicion for acute fracture Prescription Management I considered prescription management with: Pain Medication Chronic Conditions Patient?s care impacted by: Other (CMT) Critical Care Time Critical Care Time Critical Care Time: No Discharge Plan Discharge Clinical Impression: Acute pain of left shoulder Patient Disposition: Home, Self-Care Instructions: Shoulder Pain (ED) Additional Instructions: Your lab workup and imaging today were unremarkable. Limit use of the left shoulder and upper extremity. No heavy lifting. Recommend taking the prescribed anti-inflammatory medication every 8 hours for pain. Take the prescribed oxycodone as needed for severe pain only. Do not drive after taking this medication. Recommend following up with orthopedics for further evaluation and treatment of your shoulder pain. Name and number below. Call for an appointment. If you develop new or worsening symptoms call 911 or come back to the ER for further evaluation. Prescriptions: New ketorolac 10 mg tablet 10 mg PO Q8H PRN (Reason: pain) 3 Days Qty: 9 0RF oxycodone 5 mg tablet 5 mg PO Q8H PRN (Reason: severe pain (scale score 7-10)) Qty: 6 0RF Rx Instructions: Partial Fill upon patient request. No Action cyclobenzaprine 10 mg tablet 10 mg PO TID PRN (Reason: muscle spasm) 30 Days Qty: 30 1RF aripiprazole [Abilify] 10 mg tablet 10 mg PO BEDTIME Qty: 30 0RF bupropion HCl 150 mg tablet extended release 24 hr 150 mg PO QAM Qty: 30 0RF buspirone 10 mg tablet See Rx Instructions .ROUTE .COMPLEX Qty: 120 0RF Rx Instructions: 10 mg orally TID, and take 1 extra dose as needed for breakthrough anxiety gabapentin 800 mg tablet 800 mg PO TID Qty: 90 0RF lidocaine 5 % adhesive patch,medicated 1 patch topical DAILY Qty: 30 0RF Rx Instructions: leave on most painful area for up to 12 hrs ibuprofen 600 mg tablet 600 mg PO Q6H PRN (Reason: pain) Qty: 30 0RF cyclobenzaprine 10 mg tablet 10 mg PO TID PRN (Reason: muscle spasm) Qty: 20 0RF ibuprofen 600 mg tablet 600 mg PO Q8H PRN (Reason: pain) Qty: 30 0RF acetaminophen [Tylenol Extra Strength] 500 mg tablet 1,000 mg PO Q6H PRN (Reason: pain) Qty: 20 0RF acetaminophen [Tylenol Extra Strength] 500 mg tablet 500 mg PO Q4-6H PRN (Reason: fever or pain) Qty: 30 0RF ibuprofen 600 mg tablet 600 mg PO Q6H PRN (Reason: pain) Qty: 30 0RF morphine 15 mg tablet 15 mg PO Q6H PRN (Reason: pain) Qty: 10 0RF Rx Instructions: partial fill okay; Partial Fill upon patient request. metronidazole 0.75 % (37.5mg/5 gram) gel 1 appful vaginal BID 5 Days Qty: 70 2RF Rx Instructions: Use p.r.n. when clear symptoms of bacterial vaginosis are present. Referrals: [facility] [Provider Group] Merly Carrington MD [Primary Care Provider] - Interventions: ED Discharge Assessment Last Done: 07/11/24 18:57 Discharge Date/Time: 07/11/24 18:59 Print Language: Malay
[2024-07-11 12:11] LABS: Appearance Urine Clear; Color Urine Yellow; Glucose Urine UA Negative (Negative); Leukocyte Esterase Urine Small (1+) (Negative); Nitrite Urine Negative (Negative); PH 6.5 (5.0-9.0); UMIC TRIGGER UACC YES; Urine Blood Negative (Negative); Urine Ketones Trace mg/dL (Negative); Urine Protein Negative (Neg-Trace)
[2024-07-11 12:13] LABS: Basophils Absolute Auto 0.1 X10*3/uL (0.0-0.2); Basophils Percent Auto 0.6 % (0-2); Eosinophils Absolute Auto 0.1 X10*3/uL (0.0-0.4); Eosinophils Percent Auto 1.4 % (0-4); Hematocrit 38.3 % (37.0-47.0); Hemoglobin 12.6 g/dl (12.0-16.0); Imm Gran Abs Auto 0.03 X10*3/uL (0.00-0.03); Imm Gran Pct Auto 0.4 % (0.0-0.4); Lymphocytes Absolute Auto 2.2 X10*3/uL (1.2-4.9); Lymphocytes Percent Auto 28.2 % (20-40); MANUAL DIFF FLAG SCAN; Mean Corpuscular HGB Conc 32.9 g/dl (31.0-35.0); Monocytes Absolute Auto 0.7 X10*3/uL (0.1-1.2); Monocytes Percent Auto 8.7 % (2-11); Neutrophils Absolute Auto 4.7 x10*3/uL (2.0-8.3); Neutrophils Percent Auto 60.7 % (45-73); PLT CLUMP 1; Red Blood Count 4.35 X10*6/uL (4.20-5.50); Red Cell Distribution Width 13.7 % (11.0-16.0); SCAN SMEAR FLAG 1
[2024-07-11 12:18] LABS: Bacteria Urine 1+ (None Seen); Hyaline Casts Urine 0-2 /LPF (0-2); RBC Urine 0-2 /HPF (0-2); UACC Culture Trigger YES; WBC Urine 0-5 /HPF (0-5)
[2024-07-11 12:25] LABS: Alanine Aminotransferase 13 U/L (0-31); Albumin Level 3.6 g/dL (3.5-5.0); Alkaline Phosphatase 84 U/L (39-117); Anion Gap 11 (12-20); Aspartate Amino Transferase 12 U/L (5-31); Bilirubin Total 0.4 mg/dL (0.0-1.0); Blood Urea Nitrogen 7 mg/dL (9-16); Calcium 8.8 mg/dL (8.4-10.2); Carbon Dioxide 21 mmol/L (22-29); Chloride 111 mmol/L (96-108); Creatinine Clr Calc Pharmacy 107.7; Estimated Glomerular Filt Rate > 60; Glucose Random 130 mg/dL (60-115); Potassium 3.8 mmol/L (3.3-5.1); Sodium 139 mmol/L (135-145); Total Protein 6.9 g/dL (6.5-8.0)
[2024-07-11 12:37] LABS: Platelet Count 237 X10*3/uL (160-400); White Blood Count 7.8 X10*3/uL (4.8-10.8)
[2024-07-11 12:38] LABS: SLIDE REVIEW VERIFIED
[2024-07-11 12:44] LABS: Troponin-I High Sensitivity < 2.7 ng/L (<3.5-17.0)
[2024-07-11 12:48] LABS: Influenza A PCR NEGATIVE (Negative); Influenza B PCR NEGATIVE (Negative); Resp Syncy Virus RNA Qual PCR NEGATIVE (Negative); SARS COV2 PCR INHOUSE NEGATIVE (Negative)
[2024-07-11 17:14] VITALS: BP 134/84; PULSE 69; RESP 18; TEMP 36.2; O2SAT 100
[2024-07-11] MEDS: oxyCODONE HCl Immed Release 5 MG TABLET PO (18:41)
[2024-07-11] MEDS: Ketorolac Tromethamine 30 MG/ML VIAL IM (18:41)
[2024-07-11 18:45] VITALS: BP 125/80; PULSE 68; RESP 16; O2SAT 99
[2024-07-11 18:57] VITALS: BP 125/80; PULSE 68; RESP 16; TEMP 36.2; O2SAT 99
== END 2024-07-11 18:59 | disposition home or self-care (01) ==
PROVIDERS: Physician Assistant Medical; Emergency Provider Emergency Medicine; PCP Internal Medicine
DX: R07.89 Other chest pain (principal); M79.602 Pain in left arm; M25.512 Pain in left shoulder; F17.210 Nicotine dependence, cigarettes, uncomplicated; Z03.818 Encounter for observation for suspected exposure to other biological agents ruled out; Z79.899 Other long term (current) drug therapy
CPT/HCPCS: 0241U; 71046; 80053; 81001; 83735; 84484; 85025; 87086; 93005; 96372; 99284; J1885

== ENCOUNTER → 2024-07-11 11:23 | Outpatient (BNV) | payer MEDICAID, SELFPAY | PROVIDERS: Emergency Provider Emergency Medicine; PCP Internal Medicine; Visit Provider Internal Medicine | DX: R07.9 Chest pain, unspecified (principal); R94.31 Abnormal electrocardiogram [ECG] [EKG] | CPT/HCPCS: 93010 ==

== ENCOUNTER 2024-07-15 08:42 | Outpatient (REF) | payer MEDICAID, SELFPAY ==
--- NOTE | ~2024-07-15 | XR_ITS ---
EXAMINATION: XR SHOULDER, LEFT CLINICAL INFORMATION: Left shoulder pain. COMPARISON: None available. TECHNIQUE: AP, scapular Y, and axillary views of the left shoulder. FINDINGS: The bones and soft tissues are normal. No fracture. Glenohumeral and acromioclavicular alignment is anatomic with normal joint space. No abnormal soft tissue calcifications. XR/XR shoulder LT min 2V IMPRESSION: Unremarkable examination. Electronically signed by: Nic Gomez MD 08/10/2024 08:38 PM EDT
== END 2024-07-15 08:43 | disposition home or self-care (01) ==
LOC: HO.XRAY 08:42
PROVIDERS: PCP Internal Medicine; Visit Provider Physician Assistant
DX: M25.512 Pain in left shoulder (principal)
CPT/HCPCS: 20610; 73030; 99212; J0665; J1100

== ENCOUNTER 2024-07-15 09:20 | Outpatient (AMB) | payer MEDICAID, SELFPAY ==
--- NOTE | 2024-07-15 09:32 | MHC.OFFVIS ---
Vital Signs 07/15/24 09:50 Height 5 ft 1 in Weight 226 lb BMI 42.7 Intake Visit Reasons: Newprob-Acute left shoulder pain Intake Note: Cheyanne a 34 year old female who presents today for an evaluation of left shoulder pain. Patient reports her pain came on suddenly, she thought it was caused from CMT however 5 days later she continue to have intolerable pain. She presented to [facility] on 07[place]/24, xrays were taken and referred to orthopedics. Currently her pain radiates up her neck down her chest and the side of her ribs. Allergies apple Allergy (Verified 07/15/24 09:33) Throat itches HPI HPI Newprob-Acute left shoulder pain: Details: Cheyanne a 34 year old female who presents today for an evaluation of left shoulder pain. Patient reports her pain came on suddenly, she thought it was caused from CMT however 5 days later she continue to have intolerable pain. She presented to [facility] on 07/11/24, xrays were taken and referred to orthopedics. Currently her pain radiates up her neck down her chest and the side of her ribs. She is opioid dependent. [facility] Medical History PTSD (post-traumatic stress disorder) Anxiety Depression Charcot Elanna Tooth muscular atrophy Family History Mother Colon cancer Social History Household Members: Family and Other Household Members Other:: Pt's son,sister and brother in law Housing: Apartment Patient Tobacco Use Status: Current someday Tobacco user Tobacco use type: Cigarette Second Hand Smoke Exposure: No Substance Use Type: Marijuana service: No Sexual orientation: Straight/Heterosexual Female Reproductive History Menstrual Age of Menarche: 13 Physical Exam Vital Signs: BMI result Body Mass Index 42.7 Extrem Other: Left shoulder with positive Sesay and Neer Painful but negative empty can 35/90/140/L5 Office Procedures Joint Injection/Aspiration Joint Injection/Aspiration Details: Injected 1 mL of Decadron and 3 mL 1% lidocaine and 3 mL of 0.25% Marcaine. Site was prepped using aseptic technique. Patient tolerated the procedure well. Primary Site: left shoulder Approach Used: posterolateral Coding 12494 - Large joint Procedure code (CPT) selection complete Results Reviewed Results Reviewed: I personally reviewed relevant radiographs. Normal left shoulder radiographs Assessment & Plan Assessment & Plan (1) Bursitis of left shoulder: Code(s): M75.52 - Bursitis of left shoulder Category: Medical Plan: I injected her left shoulder. I recommend physical therapy. If her pain does not improve she will contact me. (2) Opioid dependence: Code(s): F11.20 - Opioid dependence, uncomplicated Category: Medical Plan: Ongoing intermittent use of narcotic pain medication Orders: Orders XR shoulder LT min 2V 07/15/24 Milady Duffy PA-C M25.512 - Pain in left shoulder PT Evaluation and Treatment 07/15/24 Kwame Harris MD M75.52 - Bursitis of left shoulder Medications: New ibuprofen 800 mg PO TID PRN 90 tabs 1RF pain Kwame Harris MD Coding Level of Care Code Est Pt Level 3 (22411) Complex EM visit Add On G2211 Diagnoses Bursitis of left shoulder M75.52 Opioid dependence F11.20 CPT Codes Coding - Large joint: 20783 - Large joint ([id number])
[2024-07-15 09:50] VITALS: BMI 42.7
== END 2024-07-15 09:56 | disposition home or self-care (01) ==
PROVIDERS: PCP Internal Medicine; Referring Provider Internal Medicine; Visit Provider Orthopaedic Surgery
DX: M75.22 Bicipital tendinitis, left shoulder (principal)
CPT/HCPCS: 20610; 99213

== ENCOUNTER → 2024-07-21 11:30 | Outpatient (BNV) | payer OTHER, SELFPAY | PROVIDERS: Visit Provider Psychiatry & Neurology Psychiatry | DX: F33.2 Major depressive disorder, recurrent severe without psychotic features (principal); F43.10 Post-traumatic stress disorder, unspecified; F13.21 Sedative, hypnotic or anxiolytic dependence, in remission; F10.11 Alcohol abuse, in remission | CPT/HCPCS: 90837; 99213; 99499 ==

== ENCOUNTER 2024-07-25 13:48 | Outpatient (REF) | payer MEDICAID, SELFPAY ==
[2024-07-25 14:25] LABS: MANUAL DIFF FLAG NO
[2024-07-25 15:01] LABS: Basophils Percent Auto 0.4 % (0-2); Eosinophils Absolute Auto 0.1 X10*3/uL (0.0-0.4); Eosinophils Percent Auto 0.9 % (0-4); Hematocrit 36.6 % (37.0-47.0); Hemoglobin 12.4 g/dl (12.0-16.0); Imm Gran Abs Auto 0.19 X10*3/uL (0.00-0.03); Imm Gran Pct Auto 1.8 % (0.0-0.4); Lymphocytes Absolute Auto 1.9 X10*3/uL (1.2-4.9); Lymphocytes Percent Auto 18.5 % (20-40); Mean Corpuscular HGB Conc 33.9 g/dl (31.0-35.0); Mean Corpuscular Volume 85.5 fL (80.0-98.0); Mean Platelet Volume 8.8 fL (9.4-12.3); Monocytes Absolute Auto 0.7 X10*3/uL (0.1-1.2); Neutrophils Absolute Auto 7.5 x10*3/uL (2.0-8.3); Neutrophils Percent Auto 71.4 % (45-73); Platelet Count 427 X10*3/uL (160-400); Red Blood Count 4.28 X10*6/uL (4.20-5.50); Red Cell Distribution Width 13.3 % (11.0-16.0); White Blood Count 10.5 X10*3/uL (4.8-10.8)
[2024-07-25 15:32] LABS: Estimated Average Glucose 126 mg/dL
[2024-07-25 15:52] LABS: Anion Gap 12 (12-20); Blood Urea Nitrogen 9 mg/dL (9-16); Calcium 9.5 mg/dL (8.4-10.2); Carbon Dioxide 23 mmol/L (22-29); Chloride 106 mmol/L (96-108); Estimated Glomerular Filt Rate > 60; Glucose Random 101 mg/dL (60-115); Iron 45 mcg/dL (30-160); Magnesium 2.1 mg/dL (1.6-2.6); Percent Iron Saturation 18 % (15-50); Potassium 3.5 mmol/L (3.3-5.1); Sodium 137 mmol/L (135-145); Total Iron Binding Capacity 246 mcg/dL (228-428); Unsaturated Iron Binding 201 ug/dL
[2024-07-25 15:55] LABS: Erythrocyte Sedimentation Rate 40 MM/HR (0-20)
[2024-07-25 16:00] LABS: Ferritin 110 ng/mL (10-122); Free T4 (Free Thyroxine) 1.01 ng/dL (0.71-1.85); Thyroid Stimulating Hormone 1.84 uIU/mL (0.32-4.0); Vitamin D 25-OH Total 23.7 ng/mL (>30)
[2024-07-25 16:35] LABS: CT PCR NOT DETECTED (Not Detect.); NG PCR NOT DETECTED (Not Detect.)
[2024-07-26 04:25] LABS: Syphilis Screen Nonreactive (Nonreactive)
[2024-07-26 04:57] LABS: HBc Num1 0.13 S/CO (0.00-0.79); HBsAGNum1 0.38 S/CO (0.00-0.99); HIV AB/AG Nonreactive (Nonreactive); HIV Num 1 0.11 S/CO (0.00-0.99); Hepatitis B Core Antibody Nonreactive (Nonreactive); Hepatitis B Surface Antigen Negative (Negative); ~HepC Num1 0.24 S/CO (0.00-0.79); ~Hepatitis B Surface Antibody NONREACTIVE (Nonreactive); ~Hepatitis C Antibody Nonreactive (Nonreactive)
[2024-07-28 22:04] LABS: Anti Nuclear Antibody Screen NEGATIVE (NEGATIVE)
== END 2024-07-25 13:49 | disposition home or self-care (01) ==
LOC: HO.LAB 13:48
PROVIDERS: PCP Internal Medicine; Visit Provider Psychiatry & Neurology Psychiatry
DX: F33.2 Major depressive disorder, recurrent severe without psychotic features (principal); R30.0 Dysuria
CPT/HCPCS: 80048; 82306; 82728; 83036; 83540; 83735; 84439; 84443; 85025; 85652; 86038; 86140; 86704; 86706; 86780; 86803; 87340; 87389; 87491; 87591

== ENCOUNTER 2024-07-26 08:28 | Outpatient (REF) | payer MEDICAID, SELFPAY ==
[2024-07-26 09:57] LABS: Appearance Urine Cloudy; Color Urine Yellow; Glucose Urine UA Negative (Negative); Leukocyte Esterase Urine Moderate (2+) (Negative); Nitrite Urine Negative (Negative); PH 5.5 (5.0-9.0); Specific Gravity - Urine 1.015 (1.005-1.025); UMIC TRIGGER UACC YES; Urine Blood Trace (Negative); Urine Ketones Negative (Negative); Urine Protein Trace mg/dL (Neg-Trace)
[2024-07-26 10:00] LABS: Bacteria Urine Trace (None Seen); Hyaline Casts Urine 0-2 /LPF (0-2); Squamous Epithelial Cell Urine 0-2 /HPF (0-2); UACC Culture Trigger YES; WBC Urine >50 /HPF (0-5)
[2024-07-26 10:06] LABS: UPreg QC Valid YES; Urine Pregnancy NEGATIVE (NEGATIVE)
[2024-07-26 10:13] LABS: Amphetamine Screen Urine Not Detected (Not Detect); Barbiturates, Urine Not Detected (Not Detect); Benzodiazepines Screen Urine Not Detected (Not Detect); Buprenorphine Scr Not Detected (Not Detect); Cannabinoid Screen Urine POSITIVE (Not Detect); Cocaine Screen Urine Not Detected (Not Detect); Fentanyl, urine Not Detected (Not Detect); Methadone Screen, Urine Not Detected (Not Detect); Opiate Screen Urine Not Detected (Not Detect); Oxycodone Screen Urine Not Detected (Not Detect); Phencyclidine Screen Urine Not Detected (Not Detect)
== END 2024-07-26 08:29 | disposition home or self-care (01) ==
LOC: HO.LAB 08:28
PROVIDERS: PCP Internal Medicine; Visit Provider Psychiatry & Neurology Psychiatry
DX: R30.0 Dysuria (principal); F33.2 Major depressive disorder, recurrent severe without psychotic features
CPT/HCPCS: 80307; 81001; 81025; 87086; 87088; 87186

== ENCOUNTER 2024-08-05 10:45 | Outpatient (RCR) | payer OTHER, SELFPAY ==
--- NOTE | 2024-07-21 14:18 | HO.PHP ---
Client's case has been opened and reviewed in team.
--- NOTE | 2024-07-22 14:11 | HO.PHP ---
PHP Admin, La, informed the team that Cheyanne will not be in attendance to program today because her son does not have summer school and there is no one to watch him. Cheyanne reported no concerns around safety. Cheyanne will be in attendance to program on Thursday.
--- NOTE | 2024-07-22 22:54 | PM.EVENT ---
Event Note Date of Service: 07/23/24 Event Note: Patient left early yesterday before her scheduled appointment and called out of the program today. Time Spent With Patient Time: Total time managing care of this patient today____ minutes.
[2024-07-25 13:03] VITALS: BMI 43.3
[2024-07-25 13:04] VITALS: BP 114/62; PULSE 100; TEMP 36.4
--- NOTE | 2024-07-25 14:08 | PC.ADMIT ---
Patient is a 34 year old female who self referred to [facility] d/t struggling with increased depression with passive SI and anxiety with panic attacks. 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 She is currently on FMLA since May d/t her mental health and is scheduled to go back to work in August. Patient can not identify triggers to her symptoms however reports her sons behavior is challenging as he has ADHD and behavioral issues. Her sons first day of school is today. She stated, I get phone calls from the school a lot. Very stressful . Stated she gets no support from her sons father heidi and stated he is not active in his sons life at all at this time. Patient has a history of homelessness however she reports she is currently living in an apartment with her son and housing is secure. Patient is alert and oriented x4. Calm and cooperative. Thoughts are clear and logical. She presents with depressed mood and affect. Reports passive SI, denied any plans or intention of killing herself. She was given a copy of her safety plan if needed. Medications reconciled with patient and patient's pharmacy. She reports taking medications as prescribed. She has a history of Benzodiazapine misuse however has not used this in 8 years. Current using marijuana smoking a blunt a day. She does not believe this is an issue for her at this time.
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
--- NOTE | 2024-07-28 09:41 | HO.PHP ---
PHP admin, La, informed the PHP team that Juliaomharmeet will not be in attendance to program due to transportation issues. Juliaomharmeet did not express any concerns around SI, plan or intent and will be in attendance to program tomorrow.
--- NOTE | 2024-07-29 08:27 | HO.PHP ---
[facility] admin, La, informed [facility] staff member, Merry, that Viomil will not be in attendance to program today due to being ill and vomiting. Viomil reported no safety concerns and will be in attendance to program tomorrow.
--- NOTE | 2024-08-03 15:17 | HO.PHP ---
[employer] checked in with pt at roughly 11:00am, after pt shared shared in group increased feelings of depression and contemplating inpatient hospitalization. Pt stated she felt she did better after going inpatient 2 years ago and wonders if she may need to go back because she feels her symptoms of sadness, isolation and loss of energy are not improving. Pt reports she just wants to stay in bed and not get up. Pt was tearful. Expressed uncertainty as to why she gets depressed like this from time to time. Syas she will feel very down for weeks. Pt explored some possible underlying concerns, revealed her divorce was recently finalized a couple weeks ago, after 4 years . Shared how she felt she destroyed her marriage, became tearful, holds on to regret and shame for the way it ended. Pt processed some of her feelings with check writer salesperson, open to writing her feelings down and possible speaking to him about it one day, for closure. Pt also explored feelings of guilt regarding her son who lives in [facility] with her ex. Pt was supported, encouraged to share these feelings in group to process and share with her therapist. Pt explored several coping tools that help reduce anxiety without smoking, including music, weighted blanket, and playing with her son. Pt denied SI, agreed to report an increase in negative thoughts or symptoms or call crisis if worsens while at home. Pt appreciative of staff support, plans to rest tonight after PHP and talk to the doctor about her increasing symptoms of depression.
--- NOTE | 2024-08-04 21:40 | P.PNPSP_ITS ---
Subjective Subjective Date of Service: 08/04/24 Reason For Visit: MDD,PTSD Interim History: Patient seen for follow-up, anticipating discharge tomorrow. Reports yesterday was miserable, today is much better . Says when she started the program she had been having more bad days than good.Things have been gradually improving. Denies any alcohol or substance use in interim. Sleep has also improved, doing well with prazosin, getting 8 hrs at night rather than 4 or 5 hours. She complains of high anxiety that persists especially during the day, social anxiety, feeling nervous, sometimes hypervigilent, agreeable to start taking prazosin on BID basis to help with anxiety during the day. Denies any medication side effects. Complains of having had nausea, some bladder sx continue although reports Macrobid has calmed down symptoms a lot . Denies any SI or thoughts of self harm. Denies HI/AH/VH. Medication Compliance: Yes Side effects from medications: No Attending Groups: Yes Mental Status Exam Mental Status Exam Narrative: Alert, oriented, in no acute distress. Calm, cooperative, engaged. No psychomotor agitation or neurovegetative retardation. Eye contact maintained. Mood anxious, affect variable, mood congruent. Speech normal. Thought process linear, coherent. Thought content related to stressors, denies any hopelessness or SI. Denies any aggressive ideation or HI. No paranoia or delusional content elicited. No evidence of psychosis. Insight and judgment - fair but adequate. Diagnostics Vital Signs (24Hr): BMI result Body Mass Index 43.3 Assessment & Plan Assessment & Plan (1) MDD (major depressive disorder), recurrent severe, without psychosis: Status: Acute Code(s): F33.2 - Major depressive disorder, recurrent severe without psychotic features Assessment and Plan: r/o depression related to general medical condition (2) PTSD (post-traumatic stress disorder): Status: Acute Code(s): F43.10 - Post-traumatic stress disorder, unspecified (3) Benzodiazepine dependence in remission: Status: Acute Code(s): F13.21 - Sedative, hypnotic or anxiolytic dependence, in remission (4) Alcohol abuse, in remission: Status: Acute Code(s): F10.11 - Alcohol abuse, in remission Plan increase prazosin to 1 mg BID to target anxiety and nightmares/sleep schedule buspirone 10 mg TID (not prn basis) continue Abilify 10 mg qhs continue bupropion XL 150 mg qam continue gabapentin 800 TID continue trazodone 100-200 mg qhs prn continue hydroxyzine 25 - 50 mg qhs PRN sleep continue other medications Routine lab work ordered EKG, routine for baseline QTc for medication considerations UDS as indicated MassPat reviewed Continue to monitor as per protocol Patient educated on: diagnosis and medication risk/benefits Reason for contiued partial hosp. stay Substantial Risk for: inability to function and med/psych decompensation Certification I certify that partial hospital treatment is medically necessary due to the symptoms and problems resulting from the patient's mental illness and the failure to treat the patient at the partial hospital level of care would likely result in the patient requiring inpatient psychiatric care which could not be prevented at a less intensive level of care. Total time managing care of this patient today __30__ minutes. Discharge Plan Discharge Attending provider: Alissa Rowe Medications: New prazosin 1 mg capsule 1 mg PO BEDTIME Qty: 20 0RF hydroxyzine HCl 25 mg tablet 25 - 50 mg PO BEDTIME PRN (Reason: sleep) Qty: 30 0RF Continued aripiprazole [Abilify] 10 mg tablet 10 mg PO BEDTIME Qty: 30 0RF Patient Comments: Patient stated she takes in the morning. bupropion HCl 150 mg tablet extended release 24 hr 150 mg PO QAM Qty: 30 0RF gabapentin 800 mg tablet 800 mg PO TID Qty: 90 0RF cyclobenzaprine 10 mg tablet 10 mg PO BEDTIME PRN (Reason: muscle spasms) buspirone 10 mg tablet 10 mg PO TID PRN (Reason: anxiety) trazodone 100 mg tablet 100 - 200 mg PO DAILY PRN (Reason: insomnia) No Action ondansetron 8 mg tablet,disintegrating 8 mg PO Q8H Qty: 30 0RF metoclopramide HCl [Reglan] 10 mg tablet 10 mg PO Q6H PRN (Reason: nausea and vomiting) Qty: 20 0RF benzonatate 100 mg capsule 100 mg PO TID Qty: 90 0RF doxycycline hyclate 100 mg capsule 100 mg PO BID 10 Days Qty: 20 0RF Stand Alone Forms: Patient Portal Discharge page Print Language: Mohawk
--- NOTE | 2024-08-05 15:13 | HO.PHP ---
Cheyanne left a VM stating that she will not be in attendance to program today due to her child being sick. Cheyanne disclosed that she is aware that today is her last day and was exploring what we would like to do for her discharge. [facility] staff member contacted Cheyanne back and left her a voicemail informing her that we would like for her to come into program on Thursday to complete her last day within the program. [facility] staff member encouraged her to contact the program back to confirm she received.
--- NOTE | 2024-08-08 14:56 | HO.PHP ---
Cheyanne reached out to [facility] admin and left a Voicemail stating that she won't be able to attend program today due to catching her maryse illness. Cheyanne voiced that she is uncertain around how we would like to proceed with discharging her. 2:40 PM: [facility] staff member reached out to Cheyanne and left a voicemail, informing her that we will need to complete the discharge over the phone since she is feeling unwell at this time. [facility] staff member is awaiting a call back in order to complete the discharge paperwork.
--- NOTE | 2024-08-08 21:23 | PM.EVENT ---
Event Note Date of Service: 08/08/24 Event Note: Patient discharged from program today due to illness. She requested a call back from this provider, however I was unable to reach her and left VM messages x 2. Will try her again tomorrow after program. Time Spent With Patient Time: Total time managing care of this patient today ____ minutes.
== END 2024-08-05 23:59 | disposition home or self-care (01) ==
LOC: HO.PHPA 10:45
PROVIDERS: Visit Provider Psychiatry & Neurology Psychiatry
DX: F33.2 Major depressive disorder, recurrent severe without psychotic features (principal); F43.10 Post-traumatic stress disorder, unspecified; F13.21 Sedative, hypnotic or anxiolytic dependence, in remission; F10.11 Alcohol abuse, in remission; Z79.899 Other long term (current) drug therapy
CPT/HCPCS: 90791; 90853

== ENCOUNTER 2024-08-09 08:45 | Outpatient (AMB) | payer MEDICAID, SELFPAY ==
[2024-08-09 08:50] VITALS: BP 114/72; PULSE 100; TEMP 37; O2SAT 96; BMI 43.3
--- NOTE | 2024-08-09 08:50 | MHC.OFFWIV ---
Intake Vital Signs 08/09/24 08:50 Height 5 ft 1 in Weight 229 lb BMI 43.3 BP 114/72 Blood Pressure Location Rt brachial Position Sitting Pulse 100 Pulse Source Pulse Oximeter Temp 98.6 F Temp Source Oral Pulse Oximetry (%) 96 Oxygen Delivery Method Room Air Intake Visit Reasons: EP-coughing, chills, vomiting, short of breath Intake Note: pt c/o cough, chills, vomiting, SOB. Started 4 days ago Patient Tobacco Use Status: Former Tobacco user Allergies apple Allergy (Verified 08/09/24 08:58) Throat itches Do you need a note to return to daycare/school/sports/work: No PFSH Medical History PTSD (post-traumatic stress disorder) Anxiety Depression Charcot Leanna Tooth muscular atrophy Family History Mother Colon cancer Social History Household Members: Children Household Members Other:: Pt's son,sister and brother in law Housing: Apartment Patient Tobacco Use Status: Former Tobacco user Tobacco use type: Cigarette Second Hand Smoke Exposure: No Substance Use Type: Marijuana service: No Sexual orientation: Straight/Heterosexual Female Reproductive History Menstrual Age of Menarche: 13 Physical Exam Vital Signs: Last Vital Signs Temp 98.6 F 08/09/24 08:50 Pulse 100 08/09/24 08:50 BP 114/72 08/09/24 08:50 Pulse Ox 96 08/09/24 08:50 Oxygen Delivery Method Room Air 08/09/24 08:50 BMI result Body Mass Index 43.3 Const General: cooperative and no acute distress; No comfortable Nutritional Appearance: obese Orientation/consciousness: patient oriented x3 HEENT Head: Yes normocephalic Ears: external ears normal and TM abnormal with fluid behind the TM bilateral General nose exam: Normal external nose present Face and sinus: Yes normal facial exam Mouth: moist mucous membranes Resp Effort & Inspection: normal respiratory effort, able to speak in complete sentences and Actively coughing Auscultation: clear to auscultation bilaterally, no crackles, no rales, no rhonchi and no wheezes Cardio Heart sounds: S1 normal heart sound present and S2 normal heart sound present Skin General skin exam: no rashes or lesions noted Neuro General: patient oriented x3, gait normal and moves all extremities Psych Speech and movement: Normal speech and movement present Assessment & Plan Assessment & Plan (1) Cough in adult: Code(s): R05.9 - Cough, unspecified Plan: Ordered Benzonatate OTC cough remedies (2) Nausea & vomiting: Code(s): R11.2 - Nausea with vomiting, unspecified Qualifiers: Vomiting type: unspecified Qualified Code(s): R11.2 - Nausea with vomiting, unspecified Plan: BLAND diet Avoid oily and greasy foods Hydrate well with plenty of fluids (3) Acute respiratory disease: Code(s): J06.9 - Acute upper respiratory infection, unspecified Plan: Ordered SARs Bacterial vs Virus Orders: Orders SARS-CoV2/FLU/RSV Today J06.9 - Acute upper respiratory infection, unspecified Medications: New ondansetron 8 mg PO Q8H 30 tabs 0RF R11.2 - Nausea with vomiting, unspecified metoclopramide HCl (Reglan) 10 mg PO Q6H PRN 20 tabs 0RF nausea and vomiting R11.2 - Nausea with vomiting, unspecified benzonatate 100 mg PO TID 90 caps 0RF R05.9 - Cough, unspecified doxycycline hyclate 100 mg PO BID 10 days 20 caps 0RF J06.9 - Acute upper respiratory infection, unspecified, R05.9 - Cough, unspecified Coding Level of Care Code Est Pt Level 3 (49884) Diagnoses Cough in adult R05.9 Nausea and vomiting, unspecified vomiting type R11.2 Vomiting type: unspecified Acute respiratory disease J06.9 Time Spent (min) 15
== END 2024-08-09 09:22 | disposition home or self-care (01) ==
PROVIDERS: PCP Internal Medicine; Visit Provider Nurse Practitioner Family
DX: R05.9 Cough, unspecified (principal); R11.2 Nausea with vomiting, unspecified; J06.9 Acute upper respiratory infection, unspecified
CPT/HCPCS: 99213

== ENCOUNTER 2024-08-09 09:06 | Outpatient (REF) | payer MEDICAID, SELFPAY ==
[2024-08-09 13:47] LABS: Influenza A PCR NEGATIVE (Negative); Influenza B PCR NEGATIVE (Negative); Resp Syncy Virus RNA Qual PCR NEGATIVE (Negative); SARS COV2 PCR INHOUSE NEGATIVE (Negative)
== END 2024-08-09 09:07 | disposition home or self-care (01) ==
LOC: HO.LAB 09:06
PROVIDERS: Visit Provider Nurse Practitioner Family
DX: J06.9 Acute upper respiratory infection, unspecified (principal)
CPT/HCPCS: 0241U

== ENCOUNTER 2024-10-04 07:51 | Emergency (ER) | payer MEDICAID, SELFPAY ==
--- NOTE | ~2024-10-04 | XR_ITS ---
EXAMINATION: XR ABDOMEN KUB CLINICAL INDICATION: Stool burden COMPARISON: CT abdomen from 09/16/2023 TECHNIQUE: AP view of the abdomen. FINDINGS: Mild fecal loading throughout the colon greatest in the sigmoid segment. Bowel gas is otherwise nonobstructive. Osseous structures are intact. Soft tissues are unremarkable. Visualized portions of the lower chest are unremarkable. XR/XR KUB IMPRESSION: 1. Mild fecal loading throughout the colon greatest in the sigmoid segment. 2. Bowel gas is otherwise nonobstructive. Electronically signed by: Pia Oh MD 10/04/2024 09:21 AM KACEY
--- NOTE | ~2024-10-04 | CT_ITS ---
EXAMINATION: CT ABDOMEN AND PELVIS WITHOUT CONTRAST CLINICAL INFORMATION: Question colitis COMPARISON: CT abdomen from 09/16/2023 TECHNIQUE: Multidetector volumetric imaging was performed from the superior aspect of the liver through the pubic symphysis. Sagittal and coronal reformatted images were obtained on the technologist's workstation. This CT examination was performed using dose optimization techniques as appropriate, variously including the following: *Automated exposure control *Adjustment of mA and/or kV according to patient size (this includes techniques or standardized protocols for targeted exams where dose is matched to indication/reason for exam; i.e. extremities or head) *Use of iterative reconstruction technique DLP: 880 mGy-cm FINDINGS: LUNG BASES: No pneumothorax. No large pleural effusion. LIVER, GALLBLADDER, AND BILIARY TREE: The liver is normal in size, shape, and attenuation. No focal hepatic lesion or biliary ductal dilatation is present. The gallbladder is unremarkable with no evidence of radiopaque gallstones, gallbladder wall thickening, or obvious pericholecystic inflammatory changes. PANCREAS: Unremarkable. SPLEEN: Unremarkable. ADRENAL GLANDS: Unremarkable. KIDNEYS AND URETERS: The kidneys are normal in size, shape, and attenuation. No hydronephrosis, hydroureter, or calculi seen. No perinephric stranding. BLADDER: Unremarkable. GASTROINTESTINAL TRACT: The small and large bowel are unremarkable. The appendix is unremarkable. ABDOMINAL WALL: Diastases rectae. Fat filled umbilical hernia. LYMPH NODES: No enlarged lymph nodes per size criteria. Multiple subcentimeter mesenteric lymph nodes are noted in the mid abdomen the largest measuring up to 8 mm in short axis, not enlarged for size criteria. May reflect an element of mesenteric adenitis in the appropriate clinical setting. Correlation with symptomatology. VASCULAR: Aorta is nonaneurysmal. PELVIC VISCERA: Anteverted uterus. Right adnexal/ovarian hypodense foci the largest measuring up to 0.1 cm. Findings are overwhelmingly likely to represent a normal ovarian follicle. No follow-up imaging recommended. OSSEOUS STRUCTURES: Sclerosis along the bilateral sacroiliac joints may reflect an element of osteitis condensans ilii in the appropriate clinical setting. CT/CT abdomen pelvis wo IV con IMPRESSION: 1. Multiple subcentimeter mesenteric lymph nodes are noted in the mid abdomen the largest measuring up to 8 mm in short axis, not enlarged per size criteria though may reflect an element of mesenteric adenitis in the appropriate clinical setting. Correlation with symptomatology. 2. Diastases rectae. Fat filled umbilical hernia. 3. Sclerosis along the bilateral sacroiliac joints may reflect an element of osteitis condensans ilii. Electronically signed by: Pia Oh MD 10/04/2024 11:52 AM KACEY
[2024-10-04 07:58] VITALS: BP 159/78; PULSE 86; RESP 18; TEMP 36.9; O2SAT 97; BMI 42.9
--- NOTE | 2024-10-04 08:59 | ED.ABDPAIN ---
HPI - Abdominal Pain General Chief Complaint: Abdominal Pain Stated Complaint: Abd pain, vomiting Time Seen by Provider: 10/04/24 08:49 Source: patient Mode of arrival: ambulatory Limitations: no limitations History of Present Illness HPI narrative: This is a 34 years old female patient presented to emergency department with complaint of abdominal pain pain is localized in the lower abdomen pain he has been ongoing for a at least 5 days she was seen at the urgent care 3 days ago and told that she is constipated MD elicited complaint: abdominal pain Pertinent past history: constipation Onset (ago): day(s) (5) Pain Consistency: constant Location: RLQ and LLQ Severity: moderate Quality: cramping Migration to: no migration Exacerbating factors: nothing Related Data Home Medications ?Medication ?Instructions ?Recorded ?Confirmed trazodone 100 mg tablet 100 - 200 mg PO DAILY PRN insomnia 07/15/24 07/25/24 buspirone 10 mg tablet 10 mg PO TID PRN anxiety 07/25/24 07/25/24 cyclobenzaprine 10 mg tablet 10 mg PO BEDTIME PRN muscle spasms 07/25/24 07/25/24 Previous Rx's ?Medication ?Instructions ?Recorded aripiprazole 10 mg tablet (Abilify) 10 mg PO BEDTIME #30 tabs 01/29/23 bupropion HCl 150 mg 24 hr tablet, 150 mg PO QAM #30 tabs 01/29/23 extended release gabapentin 800 mg tablet 800 mg PO TID #90 tabs 01/29/23 hydroxyzine HCl 25 mg tablet 25 - 50 mg (1 - 2 x 25 mg) PO 07/25/24 BEDTIME PRN sleep #30 tabs prazosin 1 mg capsule 1 mg PO BEDTIME #20 caps 07/25/24 benzonatate 100 mg capsule 100 mg PO TID #90 caps 08/09/24 doxycycline hyclate 100 mg capsule 100 mg PO BID 10 days #20 caps 08/09/24 metoclopramide HCl 10 mg tablet 10 mg PO Q6H PRN nausea and 08/09/24 (Reglan) vomiting #20 tabs ondansetron 8 mg disintegrating 8 mg PO Q8H #30 tabs 08/09/24 tablet docusate sodium 100 mg capsule 100 mg PO BID #14 caps 10/04/24 (Colace) ondansetron 4 mg disintegrating 4 mg PO Q8H 4 days #12 tabs 10/04/24 tablet oxycodone 5 mg tablet 5 mg PO Q6H PRN pain #15 tabs 10/04/24 Allergies Allergy/AdvReac Type Severity Reaction Status Date / Time apple Allergy Throat Verified 10/04/24 08:00 itches Review of Systems Eyes: Reports no additional eye complaints Respiratory: Reports no additional respiratory complaints PMFSH Past Medical History Attestation statement: The following information was validated with the patient. Source: unable to obtain Medical History PTSD (post-traumatic stress disorder) Anxiety Depression Charcot Leanna Tooth muscular atrophy Family History Family History Mother Colon cancer Social History Social History Household Members: Children Household Members Other:: Pt's son,sister and brother in law Housing: Apartment Patient Tobacco Use Status: Former Tobacco user Tobacco use type: Cigarette Second Hand Smoke Exposure: No Substance Use Type: Marijuana Advance Directives: No Advance Directives Information Provided: No service: No Sexual orientation: Straight/Heterosexual Physical Exam ED Vital Signs: Vital Signs - 24 hr 10/04/24 07:58 10/04/24 11:01 10/04/24 12:30 Temperature 98.5 F 97.2 F 97.2 F Pulse Rate 86 70 70 Respiratory Rate 18 14 14 Blood Pressure 159/78 H 116/64 116/64 Pulse Oximetry 97 100 100 Oxygen Delivery Method Room Air Room Air Room Air BMI result Body Mass Index 42.9 Const General: cooperative, well developed and alert Nutritional Appearance: well nourished Orientation/consciousness: patient oriented x3 Limitations: no limitations HENMT Head: Yes normal to inspection General nose exam: Normal external nose present Face and sinus: Yes normal facial exam Throat: Yes posterior oropharynx normal Neck Neck: Yes normal visual inspection Chest Chest palpation & inspection: normal inspection of the chest Resp Effort & Inspection: normal respiratory effort Cardio Jugular venous distension: no JVD Rate: regular rate Rhythm: regular rhythm GI Inspection: Yes normal to inspection Palpation (GI): Soft to palpation Auscultation: normal bowel sounds Skin General skin exam: no rashes or lesions noted Lesions: no lesions Rashes: no rashes Neuro General: patient oriented x3 Course Reevaluation(s) Reevaluation #1: LABS WITHIN NORMAL LIMITS, CT SCAN OF THE ABDOMEN NO FREE AIR NO SBO, MULTIPLE LYMPH NODES MORE CONSISTENT WITH MESENTERIC ADENITIS, I THINK SHE CAN BE DISCHARGED HOME VITAL SIGNS STABLE SHE IS COMFORTABLE WITH THIS Time: 12:18 Medical Decision Making Medical Decision Making [facility] Narrative: Patient presented with a chief complaint of lower abdominal pain we will obtain labs CT Differential Diagnosis Differential Diagnoses: The differential diagnosis associated with the presentation includes Constipation/colitis/diverticulitis Lab Data 10/04/24 09:33 10/04/24 10:25 Labs: Lab Results 10/04/24 10/04/24 10/04/24 Range/Units 09:33 10:25 10:30 WBC 7.4 (4.8-10.8) X10*3/uL RBC 4.33 (4.20-5.50) X10*6/uL Hgb 12.8 (12.0-16.0) g/dl Hct 37.7 (37.0-47.0) % MCV 87.1 (80.0-98.0) fL MCH 29.6 (27.0-33.0) pg MCHC 34.0 (31.0-35.0) g/dl RDW 13.5 (11.0-16.0) % Plt Count 421 H (160-400) X10*3/uL MPV 9.6 (9.4-12.3) fL Immature Gran % (Auto) 0.1 (0.0-0.4) % Neut % (Auto) 64.3 (45-73) % Lymph % (Auto) 25.4 (20-40) % [place] % (Auto) 8.2 (2-11) % Eos % (Auto) 1.5 (0-4) % Baso % (Auto) 0.5 (0-2) % Lymph # (Auto) 1.9 (1.2-4.9) X10*3/uL [place] # (Auto) 0.6 (0.1-1.2) X10*3/uL Eos # (Auto) 0.1 (0.0-0.4) X10*3/uL Baso # (Auto) 0.0 (0.0-0.2) X10*3/uL Abs Immat Gran (auto) 0.01 (0.00-0.03) X10*3/uL Absolute Neuts (auto) 4.8 (2.0-8.3) x10*3/uL Absolute Nucleated RBC 0.000 (0.0-0.012) X10*3/uL Nucleated RBC % (auto) 0.0 (0.0-0.2) /100WBC Sodium 137 (135-145) mmol/L Potassium 4.1 (3.3-5.1) mmol/L Chloride 106 (96-108) mmol/L Carbon Dioxide 24 (22-29) mmol/L Anion Gap 11 L (12-20) BUN 8 L (9-16) mg/dL Creatinine 0.70 (0.5-1.4) mg/dL Estim Creat Clear Calc 124.9 Estimated GFR > 60 Random Glucose 104 (60-115) mg/dL Calcium 9.0 (8.4-10.2) mg/dL Total Bilirubin 0.8 (0.0-1.0) mg/dL AST 20 (5-31) U/L ALT 24 (0-31) U/L Alkaline Phosphatase 91 (39-117) U/L Total Protein 7.3 (6.5-8.0) g/dL Albumin 3.8 (3.5-5.0) g/dL Urine Color Yellow Urine Appearance Clear Urine pH 7.0 (5.0-9.0) Ur Specific [place] 1.020 (1.005-1.025) Urine Protein Negative (Neg-Trace) mg/dL Urine Glucose (UA) Negative (Negative) mg/dL Urine Ketones Negative (Negative) mg/dL Urine Blood Negative (Negative) Urine Nitrite Negative (Negative) Ur Leukocyte Esterase Negative (Negative) Urine Test NEGATIVE (NEGATIVE) Medications Administered Discontinued Medications Generic Name Dose Route Start Last Admin Trade Name Freq PRN Reason Stop Dose Admin Hydromorphone HCl 0.5 mg 10/04/24 10:10/04/24 10:10 Hydromorphone Hcl 0.5 Mg/0.5 Ml Syringe IM 10/04/24 10:06 0.5 mg ONCE ONE Administration Protocol Discharge Plan Discharge Clinical Impression: Mesenteric adenitis Patient Disposition: Home, Self-Care Instructions: Mesenteric Adenitis (ED) Additional Instructions: FOLLOW-UP WITH YOUR PRIMARY CARE PHYSICIAN, LIQUID DIET FOR ABOUT, RETURN TO THE EMERGENCY ROOM IF YOU WORSE OTHERWISE FOLLOW-UP WITH YOUR PRIMARY CARE PHYSICIAN Prescriptions: New ondansetron 4 mg tablet,disintegrating 4 mg PO Q8H 4 Days Qty: 12 0RF oxycodone 5 mg tablet 5 mg PO Q6H PRN (Reason: pain) Qty: 15 0RF Rx Instructions: partial filing upon pt request; Partial Fill upon patient request. docusate sodium [Colace] 100 mg capsule 100 mg PO BID Qty: 14 0RF No Action aripiprazole [Abilify] 10 mg tablet 10 mg PO BEDTIME Qty: 30 0RF Patient Comments: Patient stated she takes in the morning. bupropion HCl 150 mg tablet extended release 24 hr 150 mg PO QAM Qty: 30 0RF gabapentin 800 mg tablet 800 mg PO TID Qty: 90 0RF cyclobenzaprine 10 mg tablet 10 mg PO BEDTIME PRN (Reason: muscle spasms) buspirone 10 mg tablet 10 mg PO TID PRN (Reason: anxiety) prazosin 1 mg capsule 1 mg PO BEDTIME Qty: 20 0RF hydroxyzine HCl 25 mg tablet 25 - 50 mg PO BEDTIME PRN (Reason: sleep) Qty: 30 0RF ondansetron 8 mg tablet,disintegrating 8 mg PO Q8H Qty: 30 0RF metoclopramide HCl [Reglan] 10 mg tablet 10 mg PO Q6H PRN (Reason: nausea and vomiting) Qty: 20 0RF benzonatate 100 mg capsule 100 mg PO TID Qty: 90 0RF doxycycline hyclate 100 mg capsule 100 mg PO BID 10 Days Qty: 20 0RF trazodone 100 mg tablet 100 - 200 mg PO DAILY PRN (Reason: insomnia) Referrals: Merly Carrington MD [Primary Care Provider] - 2 days Stand Alone Forms: Work/School Release Interventions: ED Discharge Assessment Last Done: 10/04/24 12:30 Discharge Date/Time: 10/04/24 12:40 Print Language: [place]
[2024-10-04 09:37] LABS: MANUAL DIFF FLAG NO
[2024-10-04 09:41] LABS: Basophils Percent Auto 0.5 % (0-2); Eosinophils Absolute Auto 0.1 X10*3/uL (0.0-0.4); Eosinophils Percent Auto 1.5 % (0-4); Hematocrit 37.7 % (37.0-47.0); Hemoglobin 12.8 g/dl (12.0-16.0); Imm Gran Abs Auto 0.01 X10*3/uL (0.00-0.03); Imm Gran Pct Auto 0.1 % (0.0-0.4); Lymphocytes Absolute Auto 1.9 X10*3/uL (1.2-4.9); Lymphocytes Percent Auto 25.4 % (20-40); Mean Corpuscular Hemoglobin 29.6 pg (27.0-33.0); Mean Corpuscular Volume 87.1 fL (80.0-98.0); Mean Platelet Volume 9.6 fL (9.4-12.3); Monocytes Absolute Auto 0.6 X10*3/uL (0.1-1.2); Monocytes Percent Auto 8.2 % (2-11); Neutrophils Absolute Auto 4.8 x10*3/uL (2.0-8.3); Neutrophils Percent Auto 64.3 % (45-73); Platelet Count 421 X10*3/uL (160-400); Red Blood Count 4.33 X10*6/uL (4.20-5.50); Red Cell Distribution Width 13.5 % (11.0-16.0); White Blood Count 7.4 X10*3/uL (4.8-10.8)
[2024-10-04] MEDS: HYDROmorphone HCl 0.5 MG/0.5 ML SYRINGE IM (10:10)
[2024-10-04 10:36] LABS: UPreg QC Valid YES
[2024-10-04 10:37] LABS: Urine Pregnancy NEGATIVE (NEGATIVE)
[2024-10-04 10:50] LABS: Alanine Aminotransferase 24 U/L (0-31); Albumin Level 3.8 g/dL (3.5-5.0); Alkaline Phosphatase 91 U/L (39-117); Anion Gap 11 (12-20); Aspartate Amino Transferase 20 U/L (5-31); Bilirubin Total 0.8 mg/dL (0.0-1.0); Blood Urea Nitrogen 8 mg/dL (9-16); Carbon Dioxide 24 mmol/L (22-29); Chloride 106 mmol/L (96-108); Creatinine Clr Calc Pharmacy 124.9; Estimated Glomerular Filt Rate > 60; Glucose Random 104 mg/dL (60-115); Potassium 4.1 mmol/L (3.3-5.1); Sodium 137 mmol/L (135-145); Total Protein 7.3 g/dL (6.5-8.0)
[2024-10-04 11:01] VITALS: BP 116/64; PULSE 70; RESP 14; TEMP 36.2; O2SAT 100
[2024-10-04 11:12] LABS: Appearance Urine Clear; Color Urine Yellow; Glucose Urine UA Negative (Negative); Leukocyte Esterase Urine Negative (Negative); Nitrite Urine Negative (Negative); Urine Blood Negative (Negative); Urine Ketones Negative (Negative); Urine Protein Negative (Neg-Trace)
[2024-10-04 12:30] VITALS: BP 116/64; PULSE 70; RESP 14; TEMP 36.2; O2SAT 100
== END 2024-10-04 12:40 | disposition home or self-care (01) ==
PROVIDERS: Emergency Provider Emergency Medicine; PCP Internal Medicine
DX: I88.0 Nonspecific mesenteric lymphadenitis (principal); R11.2 Nausea with vomiting, unspecified; R10.31 Right lower quadrant pain; R10.32 Left lower quadrant pain; R10.2 Pelvic and perineal pain; Z79.899 Other long term (current) drug therapy
CPT/HCPCS: 36415; 74018; 74176; 80053; 81003; 81025; 85025; 96372; 99283; 99284; J1171

== ENCOUNTER 2024-10-05 08:11 | Emergency (ER) | payer MEDICAID, SELFPAY ==
[2024-10-05 08:14] VITALS: BP 117/85; PULSE 96; RESP 16; TEMP 37; O2SAT 98; BMI 43.5
[2024-10-05 08:48] LABS: MANUAL DIFF FLAG NO
[2024-10-05 08:56] LABS: Basophils Percent Auto 0.4 % (0-2); Eosinophils Absolute Auto 0.1 X10*3/uL (0.0-0.4); Eosinophils Percent Auto 1.1 % (0-4); Hematocrit 36.5 % (37.0-47.0); Hemoglobin 12.5 g/dl (12.0-16.0); Imm Gran Abs Auto 0.01 X10*3/uL (0.00-0.03); Imm Gran Pct Auto 0.1 % (0.0-0.4); Lymphocytes Absolute Auto 1.8 X10*3/uL (1.2-4.9); Lymphocytes Percent Auto 22.5 % (20-40); Mean Corpuscular HGB Conc 34.2 g/dl (31.0-35.0); Mean Corpuscular Hemoglobin 29.1 pg (27.0-33.0); Mean Corpuscular Volume 85.1 fL (80.0-98.0); Mean Platelet Volume 9.1 fL (9.4-12.3); Monocytes Absolute Auto 0.7 X10*3/uL (0.1-1.2); Monocytes Percent Auto 8.5 % (2-11); Neutrophils Absolute Auto 5.3 x10*3/uL (2.0-8.3); Neutrophils Percent Auto 67.4 % (45-73); Platelet Count 429 X10*3/uL (160-400); Red Blood Count 4.29 X10*6/uL (4.20-5.50); Red Cell Distribution Width 13.4 % (11.0-16.0); White Blood Count 7.9 X10*3/uL (4.8-10.8)
[2024-10-05 09:43] VITALS: BP 126/83; PULSE 81; RESP 16; TEMP 36.6; O2SAT 97
[2024-10-05 09:56] LABS: Anion Gap 10 (12-20); Blood Urea Nitrogen 8 mg/dL (9-16); Calcium 9.1 mg/dL (8.4-10.2); Carbon Dioxide 25 mmol/L (22-29); Chloride 105 mmol/L (96-108); Creatinine Clr Calc Pharmacy 131.5; Estimated Glomerular Filt Rate > 60; Glucose Random 109 mg/dL (60-115); Potassium 3.9 mmol/L (3.3-5.1); Sodium 136 mmol/L (135-145)
[2024-10-05 10:08] LABS: Appearance Urine Clear; Color Urine Yellow; Glucose Urine UA Negative (Negative); Leukocyte Esterase Urine Negative (Negative); Nitrite Urine Negative (Negative); Urine Blood Negative (Negative); Urine Ketones Negative (Negative); Urine Protein Negative (Neg-Trace)
[2024-10-05] MEDS: Ketorolac Tromethamine 60 MG/2 ML VIAL IM (10:56)
--- NOTE | 2024-10-05 11:50 | ED.ABDPAIN ---
HPI - Abdominal Pain General Chief Complaint: Abdominal Pain Stated Complaint: Lower abd pain Time Seen by Provider: 10/05/24 10:21 Source: patient Mode of arrival: ambulatory Limitations: no limitations History of Present Illness ED Provider: Dr. Hdez HPI narrative: Patient is a 34yo female with a history of alcohol abuse, benzodiazepine dependency, presents with RLQ pain. Patient was seen yesterday with had a Abd/pelvis CT that was negative for appendicitis. Patient was sent home with treatment for constipation. She feels pain in rectum Related Data Home Medications ?Medication ?Instructions ?Recorded ?Confirmed trazodone 100 mg tablet 100 - 200 mg PO DAILY PRN insomnia 07/15/24 07/25/24 buspirone 10 mg tablet 10 mg PO TID PRN anxiety 07/25/24 07/25/24 cyclobenzaprine 10 mg tablet 10 mg PO BEDTIME PRN muscle spasms 07/25/24 07/25/24 Previous Rx's ?Medication ?Instructions ?Recorded aripiprazole 10 mg tablet (Abilify) 10 mg PO BEDTIME #30 tabs 01/29/23 bupropion HCl 150 mg 24 hr tablet, 150 mg PO QAM #30 tabs 01/29/23 extended release gabapentin 800 mg tablet 800 mg PO TID #90 tabs 01/29/23 hydroxyzine HCl 25 mg tablet 25 - 50 mg (1 - 2 x 25 mg) PO 07/25/24 BEDTIME PRN sleep #30 tabs prazosin 1 mg capsule 1 mg PO BEDTIME #20 caps 07/25/24 benzonatate 100 mg capsule 100 mg PO TID #90 caps 08/09/24 doxycycline hyclate 100 mg capsule 100 mg PO BID 10 days #20 caps 08/09/24 metoclopramide HCl 10 mg tablet 10 mg PO Q6H PRN nausea and 08/09/24 (Reglan) vomiting #20 tabs ondansetron 8 mg disintegrating 8 mg PO Q8H #30 tabs 08/09/24 tablet docusate sodium 100 mg capsule 100 mg PO BID #14 caps 10/04/24 (Colace) ondansetron 4 mg disintegrating 4 mg PO Q8H 4 days #12 tabs 10/04/24 tablet oxycodone 5 mg tablet 5 mg PO Q6H PRN pain #15 tabs 10/04/24 naproxen 500 mg tablet (Naprosyn) 500 mg PO BID #20 tabs 10/05/24 psyllium seed (sugar) oral powder 1 tsp PO DAILY #1,254 grams 10/05/24 (Metamucil (sugar) oral powder) Allergies Allergy/AdvReac Type Severity Reaction Status Date / Time apple Allergy Throat Verified 10/05/24 08:16 itches Review of Systems Review of Systems Yes all other systems are reviewed and are negative Denies Sensory deficit (Neuro) [facility] Past Medical History Medical History PTSD (post-traumatic stress disorder) Anxiety Depression Charcot Leanna Tooth muscular atrophy Family History Family History Mother Colon cancer Social History Social History Household Members: Children Household Members Other:: Pt's son,sister and brother in law Housing: Apartment Patient Tobacco Use Status: Former Tobacco user Tobacco use type: Cigarette Second Hand Smoke Exposure: No Substance Use Type: Marijuana Advance Directives: No Do you have a plan to hurt others: No Plan service: No Sexual orientation: Straight/Heterosexual Physical Exam ED Vital Signs: Vital Signs - 24 hr 10/05/24 08:14 10/05/24 09:43 10/05/24 12:36 Temperature 98.6 F 97.8 F 97.7 F Pulse Rate 96 81 83 Respiratory Rate 16 16 16 Blood Pressure 117/85 126/83 121/78 Pulse Oximetry 98 97 98 Oxygen Delivery Method Room Air Room Air Room Air 10/05/24 14:15 Temperature 97.7 F Pulse Rate 87 Respiratory Rate 16 Blood Pressure 133/69 Pulse Oximetry 99 Oxygen Delivery Method Room Air BMI result Body Mass Index 43.5 Const Nutritional Appearance: obese Orientation/consciousness: oriented to person and patient oriented x3 Limitations: no limitations HENMT Head: Yes normal to inspection Ears: external ears normal General nose exam: Normal external nose present Mouth: Normal oral and palatal mucosa present and oropharynx normal Throat: Yes posterior oropharynx normal Eyes General: appearance normal, both eyes and all related structures Neck Neck: Yes normal visual inspection Chest Chest palpation & inspection: normal inspection of the chest Resp Auscultation: clear to auscultation bilaterally Cardio Jugular venous distension: no JVD Rate: regular rate Rhythm: regular rhythm Heart sounds: S1 normal heart sound present and S2 normal heart sound present GI Other: obese nontender Other: rectal empty vault Skin General skin exam: no rashes or lesions noted Neuro General: oriented to person and patient oriented x3 Cranial nerves: Yes CN's II-XII intact bilaterally Motor exam (neuro): 5/5 motor strength present throughout Sensory Exam: No Sensory deficit (Neuro) Extrem General: Yes normal to inspection Psych Appearance: grossly normal Course Reevaluation(s) Reevaluation #1: Patient with nontender abdomen will treat for adenitis and dc home, will add metamucil Time: 14:22 Medical Decision Making Differential Diagnosis Differential Diagnoses: The differential diagnosis associated with the presentation includes (appendicitis, adenitis, fecal impaction, constipation) Admission/Observation Consideration of admission/observation: Escalation of care including admission/observation considered (upon arrival admission was considered) Lab Data 10/05/24 08:44 10/05/24 09:39 Labs: Lab Results 10/05/24 10/05/24 10/05/24 Range/Units 08:44 09:39 09:50 WBC 7.9 (4.8-10.8) X10*3/uL RBC 4.29 (4.20-5.50) X10*6/uL Hgb 12.5 (12.0-16.0) g/dl Hct 36.5 L (37.0-47.0) % MCV 85.1 (80.0-98.0) fL MCH 29.1 (27.0-33.0) pg MCHC 34.2 (31.0-35.0) g/dl RDW 13.4 (11.0-16.0) % Plt Count 429 H (160-400) X10*3/uL MPV 9.1 L (9.4-12.3) fL Immature Gran % (Auto) 0.1 (0.0-0.4) % Neut % (Auto) 67.4 (45-73) % Lymph % (Auto) 22.5 (20-40) % [place] % (Auto) 8.5 (2-11) % Eos % (Auto) 1.1 (0-4) % Baso % (Auto) 0.4 (0-2) % Lymph # (Auto) 1.8 (1.2-4.9) X10*3/uL [place] # (Auto) 0.7 (0.1-1.2) X10*3/uL Eos # (Auto) 0.1 (0.0-0.4) X10*3/uL Baso # (Auto) 0.0 (0.0-0.2) X10*3/uL Abs Immat Gran (auto) 0.01 (0.00-0.03) X10*3/uL Absolute Neuts (auto) 5.3 (2.0-8.3) x10*3/uL Absolute Nucleated RBC 0.000 (0.0-0.012) X10*3/uL Nucleated RBC % (auto) 0.0 (0.0-0.2) /100WBC Sodium 136 (135-145) mmol/L Potassium 3.9 (3.3-5.1) mmol/L Chloride 105 (96-108) mmol/L Carbon Dioxide 25 (22-29) mmol/L Anion Gap 10 L (12-20) BUN 8 L (9-16) mg/dL Creatinine 0.67 (0.5-1.4) mg/dL Estim Creat Clear Calc 131.5 Estimated GFR > 60 Random Glucose 109 (60-115) mg/dL Calcium 9.1 (8.4-10.2) mg/dL Urine Color Yellow Urine Appearance Clear Urine pH 7.0 (5.0-9.0) Ur Specific [place] 1.020 (1.005-1.025) Urine Protein Negative (Neg-Trace) mg/dL Urine Glucose (UA) Negative (Negative) mg/dL Urine Ketones Negative (Negative) mg/dL Urine Blood Negative (Negative) Urine Nitrite Negative (Negative) Ur Leukocyte Esterase Negative (Negative) External Record Review External record reviewed: Outpatient record, Prior outpatient labs and Prior outpatient radiology Tests considered The following testing was considered but not selected: CT of abd considered but patient just had a CT Prescription Management I considered prescription management with: Antibiotic (no UTI seen) Social Determinants Patient?s care significantly limited by Social Determinants of Health including: Alcoholism and drug addiction in family Medications Administered Discontinued Medications Generic Name Dose Route Start Last Admin Trade Name Freq PRN Reason Stop Dose Admin Ketorolac Tromethamine 60 mg 10/05/24 10:51 10/05/24 10:56 Ketorolac Tromethamine 60 Mg/2 Ml Vial IM 10/05/24 10:52 60 mg ONCE ONE Administration Discharge Plan Discharge Clinical Impression: Acute mesenteric adenitis Patient Disposition: Home, Self-Care Instructions: Mesenteric Adenitis (ED), Adenitis (ED) Prescriptions: New naproxen [Naprosyn] 500 mg tablet 500 mg PO BID Qty: 20 0RF Metamucil (sugar) Powder 1 tsp PO DAILY Qty: 1254 0RF No Action aripiprazole [Abilify] 10 mg tablet 10 mg PO BEDTIME Qty: 30 0RF Patient Comments: Patient stated she takes in the morning. bupropion HCl 150 mg tablet extended release 24 hr 150 mg PO QAM Qty: 30 0RF gabapentin 800 mg tablet 800 mg PO TID Qty: 90 0RF ondansetron 4 mg tablet,disintegrating 4 mg PO Q8H 4 Days Qty: 12 0RF oxycodone 5 mg tablet 5 mg PO Q6H PRN (Reason: pain) Qty: 15 0RF Rx Instructions: partial filing upon pt request; Partial Fill upon patient request. docusate sodium [Colace] 100 mg capsule 100 mg PO BID Qty: 14 0RF cyclobenzaprine 10 mg tablet 10 mg PO BEDTIME PRN (Reason: muscle spasms) buspirone 10 mg tablet 10 mg PO TID PRN (Reason: anxiety) prazosin 1 mg capsule 1 mg PO BEDTIME Qty: 20 0RF hydroxyzine HCl 25 mg tablet 25 - 50 mg PO BEDTIME PRN (Reason: sleep) Qty: 30 0RF ondansetron 8 mg tablet,disintegrating 8 mg PO Q8H Qty: 30 0RF metoclopramide HCl [Reglan] 10 mg tablet 10 mg PO Q6H PRN (Reason: nausea and vomiting) Qty: 20 0RF benzonatate 100 mg capsule 100 mg PO TID Qty: 90 0RF doxycycline hyclate 100 mg capsule 100 mg PO BID 10 Days Qty: 20 0RF trazodone 100 mg tablet 100 - 200 mg PO DAILY PRN (Reason: insomnia) Referrals: Merly Carrington MD [Primary Care Provider] - 3 days Print Language: Hungarian
[2024-10-05 12:36] VITALS: BP 121/78; PULSE 83; RESP 16; TEMP 36.5; O2SAT 98
[2024-10-05 14:15] VITALS: BP 133/69; PULSE 87; RESP 16; TEMP 36.5; O2SAT 99
[2024-10-05] MEDS: Ondansetron ODT 4 MG TAB.RAPDIS TRANSLINGU (14:37)
[2024-10-05 14:43] VITALS: BP 133/69; PULSE 87; RESP 16; TEMP 36.5; O2SAT 99
== END 2024-10-05 14:43 | disposition home or self-care (01) ==
PROVIDERS: Emergency Provider Emergency Medicine; PCP Internal Medicine
DX: I88.0 Nonspecific mesenteric lymphadenitis (principal); R10.31 Right lower quadrant pain; Z79.899 Other long term (current) drug therapy; Z87.891 Personal history of nicotine dependence
CPT/HCPCS: 36415; 80048; 81003; 85025; 96372; 99284; J1885

== ENCOUNTER 2024-11-17 08:15 | Emergency (ER) | payer MEDICAID, SELFPAY ==
--- NOTE | ~2024-11-17 | XR_ITS ---
EXAMINATION: XR KNEE, RIGHT CLINICAL INFORMATION: pain/fall/ COMPARISON: 09/25/2023 TECHNIQUE: Four views of the right knee. FINDINGS: No fracture, dislocation or destructive process. No joint effusion. No change. XR/XR knee RT 4V IMPRESSION: Normal right knee. Electronically signed by: Brady Patel MD 11/17/2024 10:14 AM [facility]
[2024-11-17 08:28] VITALS: BP 135/88; PULSE 95; RESP 18; TEMP 36.6; O2SAT 98; BMI 43.5
--- NOTE | 2024-11-17 09:30 | ED.LOWEXIN ---
HPI - Extremity Injury (Lower) General Chief Complaint: Extremity Injury, Lower Stated Complaint: Knee injury Time Seen by Provider: 11/17/24 09:05 Source: patient and RN notes reviewed Mode of arrival: ambulatory Limitations: no limitations History of Present Illness ED Provider: Valery Sparks PA-C HPI Narrative: This is a 34-year-old female, with a past medical history of Charcot Leanna tooth muscular atrophy, PTSD, anxiety, and depression, who presents emergency department with complaints of right knee pain since yesterday. Patient states that while she was at work yesterday, she stood up from a chair and felt a popping sensation in her right knee, and she felt as though her knee went out of place, and she fell onto the ground. She states that she felt her knee pop back into place. She states that she is unable to fully bear weight on her right leg. She denies any numbness tingling or weakness. She states that she has a history of similar symptoms in the past. She has followed up with orthopedics here at [facility] who was diagnosed with a right knee patellofemoral instability. Denies taking any medications prior to arrival today. Denies hitting her head or LOC. No other complaints or concerns at this time. MD complaint: knee injury Onset (ago): day(s) Type of Injury: unknown Place: work Severity: moderate Relieving factors: nothing Exacerbating factors: weight bearing, movement and palpation Context: fall Associated symptoms: snap/pop sensation, swelling and able to partially bear weight Other symptoms: none Related Data Home Medications ?Medication ?Instructions ?Recorded ?Confirmed trazodone 100 mg tablet 100 - 200 mg PO DAILY PRN insomnia 07/15/24 07/25/24 buspirone 10 mg tablet 10 mg PO TID PRN anxiety 07/25/24 07/25/24 cyclobenzaprine 10 mg tablet 10 mg PO BEDTIME PRN muscle spasms 07/25/24 07/25/24 Previous Rx's ?Medication ?Instructions ?Recorded aripiprazole 10 mg tablet (Abilify) 10 mg PO BEDTIME #30 tabs 01/29/23 bupropion HCl 150 mg 24 hr tablet, 150 mg PO QAM #30 tabs 01/29/23 extended release gabapentin 800 mg tablet 800 mg PO TID #90 tabs 01/29/23 hydroxyzine HCl 25 mg tablet 25 - 50 mg (1 - 2 x 25 mg) PO 07/25/24 BEDTIME PRN sleep #30 tabs prazosin 1 mg capsule 1 mg PO BEDTIME #20 caps 07/25/24 benzonatate 100 mg capsule 100 mg PO TID #90 caps 08/09/24 doxycycline hyclate 100 mg capsule 100 mg PO BID 10 days #20 caps 08/09/24 metoclopramide HCl 10 mg tablet 10 mg PO Q6H PRN nausea and 08/09/24 (Reglan) vomiting #20 tabs ondansetron 8 mg disintegrating 8 mg PO Q8H #30 tabs 08/09/24 tablet docusate sodium 100 mg capsule 100 mg PO BID #14 caps 10/04/24 (Colace) ondansetron 4 mg disintegrating 4 mg PO Q8H 4 days #12 tabs 10/04/24 tablet oxycodone 5 mg tablet 5 mg PO Q6H PRN pain #15 tabs 10/04/24 naproxen 500 mg tablet (Naprosyn) 500 mg PO BID #20 tabs 10/05/24 psyllium seed (sugar) oral powder 1 tsp PO DAILY #1,254 grams 10/05/24 (Metamucil (sugar) oral powder) acetaminophen 500 mg tablet 1,000 mg (2 x 500 mg) PO Q8H PRN 11/17/24 (Tylenol Extra Strength) pain #30 tabs ibuprofen 600 mg tablet 600 mg PO Q6H PRN pain #30 tabs 11/17/24 morphine 15 mg immediate release 15 mg PO Q8H PRN pain #7 tabs 11/17/24 tablet Allergies Allergy/AdvReac Type Severity Reaction Status Date / Time apple Allergy Throat Verified 11/17/24 08:30 itches Review of Systems Review of Systems: Yes all other systems are reviewed and are negative Constitutional: Constitutional: Reports as per [facility] Past Medical History Medical History PTSD (post-traumatic stress disorder) Anxiety Depression Charcot Leanna Tooth muscular atrophy Family History Family History Mother Colon cancer Social History Social History Household Members: Children Household Members Other:: Pt's son,sister and brother in law Housing: Apartment Patient Tobacco Use Status: Former Tobacco user Tobacco use type: Cigarette Second Hand Smoke Exposure: No Substance Use Type: Marijuana Advance Directives: No Advance Directives Information Provided: Yes Do you have a plan to hurt others: No Plan service: No Sexual orientation: Straight/Heterosexual Physical Exam Vital Signs: Vital Signs: Last Vital Signs Temp 98 F 11/17/24 12:33 Pulse 86 11/17/24 12:33 Resp 18 11/17/24 12:33 BP 116/72 11/17/24 12:33 Pulse Ox 100 11/17/24 12:33 O2 Del Method Room Air 11/17/24 12:33 BMI result Body Mass Index 43.5 Const: General: cooperative, comfortable and no acute distress Orientation/consciousness: patient oriented x3 Limitations: no limitations HEENT: Head: Yes normal to inspection, Yes normocephalic and Yes atraumatic Ears: hearing grossly normal bilaterally General nose exam: Normal external nose present Face and sinus: Yes normal facial exam Mouth: Normal oral and palatal mucosa present, oropharynx normal and moist mucous membranes Throat: Yes posterior oropharynx normal Eyes: General: appearance normal, both eyes and all related structures Eyelids: Yes eyelids normal Conjunctivae: conjunctivae normal Sclerae: sclerae normal Pupils: Equal, round and reactive pupils present EOM: EOMs intact bilaterally Neck: Neck: Yes normal visual inspection, Yes full ROM and Yes no lymphadenopathy Lymphatic: no lymphadenopathy noted Chest: Chest palpation & inspection: normal inspection of the chest Resp: Effort & Inspection: normal respiratory effort and able to speak in complete sentences Cardio: Rate: regular rate Rhythm: regular rhythm Heart sounds: S1 normal heart sound present and S2 normal heart sound present GI: Inspection: Yes normal to inspection Skin: General skin exam: no rashes or lesions noted Trauma: no lacerations or abrasions Wounds: no wounds Neuro: General: patient oriented x3 and moves all extremities Cranial nerves: Yes Equal, round and reactive pupils present Extrem: Other: Right knee with moderate effusion noted, no bony deformity or swelling. Able to flex and extend at the knee, able to flex to about 45?. Able to fully extend. No palpable deformities palpated along the quadriceps. No calf tenderness. Strong DP pulse. Leg is well perfused. General: Yes normal to inspection Right upper extremity: normal to inspection Left upper extremity: normal to inspection Left lower extremity: normal to inspection Course Reevaluation(s) Reevaluation #1: Pt placed in knee immobilizer and given crutches. Medications Administered Discontinued Medications Generic Name Dose Route Start Last Admin Trade Name Freq PRN Reason Stop Dose Admin Ketorolac Tromethamine 30 mg 11/17/24 09:52 11/17/24 10:11 Ketorolac Tromethamine 30 Mg/Ml Vial IM 11/17/24 09:53 30 mg ONCE ONE Administration Morphine Sulfate 15 mg 11/17/24 09:52 11/17/24 10:11 Morphine Sulfate Immed Release 15 Mg Tablet PO 11/17/24 09:53 15 mg ONCE ONE Administration Medical Decision Making Medical Decision Making [facility] Narrative: This is a 34-year-old female who presents emergency department with complaints of right knee pain since yesterday. Patient reports that she felt as though her knee popped out of place. She has a history of knee instability in the past and has been seen by Orthopedics. Patient has moderate edema noted to the patella, however patella appears to be in place, no palpable deformity to suggest quad tear. No calf tenderness. Differential diagnoses include sprain, strain, contusion, fracture, dislocation. X-ray was performed to rule out any bony abnormalities. X-ray was reviewed as no acute abnormality seen. Discussed findings with patient. Given concern for ligamentous injury, and instability in the knee, will place patient in knee immobilizer and given orthopedic referral for follow-up. Patient discharged with ibuprofen, Tylenol, and morphine for severe pain only. She is feeling much better after receiving Toradol and morphine in the department. Patient stable for discharge. Differential Diagnosis Differential Diagnoses: The differential diagnosis associated with the presentation includes See above Radiology Impression Discussion of test interpretation with radiology: I have reviewed the radiologist's reading. Radiologist Impression: EXAMINATION: XR KNEE, RIGHT CLINICAL INFORMATION: pain/fall/ COMPARISON: 09/25/2023 TECHNIQUE: Four views of the right knee. FINDINGS: No fracture, dislocation or destructive process. No joint effusion. No change. XR/XR knee RT 4V IMPRESSION: Normal right knee. Electronically signed by: Brady Patel MD 11/17/2024 10:14 AM [facility] Dictated By: Brady Patel MD External Record Review External record reviewed: Inpatient record, Office record, Outpatient record, Prior outpatient labs, Prior outpatient radiology, Primary care record and Outside ED record Discharge Plan Discharge Clinical Impression: Right knee sprain Patient Disposition: Home, Self-Care Instructions: Knee Sprain (ED), Crutch Instructions (ED) Additional Instructions: You were seen in the emergency department due to knee pain. Please use knee immobilizer and crutches until you follow-up with the orthopedic team. Your x-ray was normal. It is unclear if you have a ligament injury therefore it is very important that you follow-up with the orthopedic team. Call to make an appointment. Ice, rest, and elevate your leg. You do not need to use the knee immobilizer at bedtime, only when your ambulating. If any new or worsening symptoms occur including but not limited to decreased range of motion, severe pain, severe chest pain or shortness of breath, please seek emergent care. Alternate between ibuprofen and Tylenol as needed for pain. You may take morphine only for severe pain. Please be advised that this can cause drowsiness, do not drink alcohol or drive while taking this medication. Please be advised that this is addictive, only take as prescribed. Prescriptions: New morphine 15 mg tablet 15 mg PO Q8H PRN (Reason: pain) Qty: 7 0RF Rx Instructions: Partial Fill upon patient request. ibuprofen 600 mg tablet 600 mg PO Q6H PRN (Reason: pain) Qty: 30 0RF acetaminophen [Tylenol Extra Strength] 500 mg tablet 1,000 mg PO Q8H PRN (Reason: pain) Qty: 30 0RF No Action aripiprazole [Abilify] 10 mg tablet 10 mg PO BEDTIME Qty: 30 0RF Patient Comments: Patient stated she takes in the morning. bupropion HCl 150 mg tablet extended release 24 hr 150 mg PO QAM Qty: 30 0RF gabapentin 800 mg tablet 800 mg PO TID Qty: 90 0RF ondansetron 4 mg tablet,disintegrating 4 mg PO Q8H 4 Days Qty: 12 0RF oxycodone 5 mg tablet 5 mg PO Q6H PRN (Reason: pain) Qty: 15 0RF Rx Instructions: partial filing upon pt request; Partial Fill upon patient request. docusate sodium [Colace] 100 mg capsule 100 mg PO BID Qty: 14 0RF cyclobenzaprine 10 mg tablet 10 mg PO BEDTIME PRN (Reason: muscle spasms) buspirone 10 mg tablet 10 mg PO TID PRN (Reason: anxiety) prazosin 1 mg capsule 1 mg PO BEDTIME Qty: 20 0RF hydroxyzine HCl 25 mg tablet 25 - 50 mg PO BEDTIME PRN (Reason: sleep) Qty: 30 0RF naproxen [Naprosyn] 500 mg tablet 500 mg PO BID Qty: 20 0RF Metamucil (sugar) Powder 1 tsp PO DAILY Qty: 1254 0RF ondansetron 8 mg tablet,disintegrating 8 mg PO Q8H Qty: 30 0RF metoclopramide HCl [Reglan] 10 mg tablet 10 mg PO Q6H PRN (Reason: nausea and vomiting) Qty: 20 0RF benzonatate 100 mg capsule 100 mg PO TID Qty: 90 0RF doxycycline hyclate 100 mg capsule 100 mg PO BID 10 Days Qty: 20 0RF trazodone 100 mg tablet 100 - 200 mg PO DAILY PRN (Reason: insomnia) Stand Alone Forms: Work/School Release Interventions: ED Discharge Assessment Last Done: 11/17/24 12:33 Discharge Date/Time: 11/17/24 12:33 Print Language: Maltese
[2024-11-17] MEDS: Ketorolac Tromethamine 30 MG/ML VIAL IM (10:11)
[2024-11-17] MEDS: Morphine Sulfate Immed Release 15 MG TABLET PO (10:11)
[2024-11-17 11:15] VITALS: BP 116/72; PULSE 86; RESP 18; TEMP 36.6; O2SAT 100
[2024-11-17 12:33] VITALS: BP 116/72; PULSE 86; RESP 18; TEMP 36.6; O2SAT 100
== END 2024-11-17 12:33 | disposition home or self-care (01) ==
PROVIDERS: Emergency Provider Emergency Medicine Emergency Medical Services; PCP Internal Medicine
DX: S83.91XA Sprain of unspecified site of right knee, initial encounter (principal); X50.1XXA Overexertion from prolonged static or awkward postures, initial encounter; Z87.891 Personal history of nicotine dependence; Y93.89 Activity, other specified; Y92.9 Unspecified place or not applicable; Y99.0 Civilian activity done for income or pay
CPT/HCPCS: 73564; 96372; 99283; 99284; J1885

== ENCOUNTER 2024-12-07 14:18 | Outpatient (REF) | payer MEDICAID, SELFPAY | END 2024-12-07 14:19 | disposition home or self-care (01) | LOC: HO.HOSX 14:18 | PROVIDERS: PCP Internal Medicine; Visit Provider Orthopaedic Surgery | DX: M25.561 Pain in right knee (principal); M25.361 Other instability, right knee | CPT/HCPCS: 99212 ==

== ENCOUNTER 2024-12-07 14:18 | Outpatient (AMB) | payer MEDICAID, SELFPAY ==
--- NOTE | 2024-12-07 14:29 | MHC.OFFVIS ---
Intake Visit Reasons: Right knee instability Intake Note: Cheyanne is a 34 year old female who presents with recurrent episodes of right knee patella lateral instability. The patient states that over the last year her patella has subluxed approximately 5 times. Most recently she was getting out of a chair on 11/16/2024 when she felt a ?pop? in her right knee and she fell to the ground. She has been using a knee immobilizer when she ambulates. She also walks with crutches. She has tried naproxen which gives her minimal relief. She has also done physical therapy which aggravated her pain. Allergies apple Allergy (Verified 12/07/24 14:29) Throat itches Medication List - Last Reviewed 12/07/24 by KENN Hutchinson acetaminophen (Tylenol Extra Strength) 1,000 mg (2 x 500 mg) PO Q8H PRN aripiprazole (Abilify) 10 mg PO BEDTIME bupropion HCl XL 150 mg PO QAM buspirone 10 mg PO TID PRN cyclobenzaprine 10 mg PO BEDTIME PRN gabapentin 800 mg PO TID ibuprofen 600 mg PO Q6H PRN naproxen (Naprosyn) 500 mg PO BID PFSH Medical History PTSD (post-traumatic stress disorder) Anxiety Depression Charcot Leanna Tooth muscular atrophy Family History Mother Colon cancer Social History Household Members: Children Household Members Other:: Pt's son,sister and brother in law Housing: Apartment Patient Tobacco Use Status: Former Tobacco user Tobacco use type: Cigarette Second Hand Smoke Exposure: No Substance Use Type: Marijuana service: No Sexual orientation: Straight/Heterosexual Female Reproductive History Menstrual Age of Menarche: 13 Physical Exam Extrem Other: Right knee examination shows a minimal effusion, positive apprehension test, tenderness along her medial patellofemoral ligament Results Reviewed Results Reviewed: MRI of the patient's right knee shows tearing of the medial patellofemoral ligament as well as tearing of the medial retinaculum and osseous contusion along the medial facet of the patella consistent with recent lateral patellar dislocation Assessment & Plan Assessment & Plan (1) Instability of right patellofemoral joint: Code(s): M25.361 - Other instability, right knee Category: Medical Plan Ms. Wright presents with recurrent right knee lateral patellar instability. I had a lengthy discussion with the patient regarding the treatment options. At this point the patient appears to be failing continued non operative treatments. The patient may be a candidate for medial patellofemoral ligament reconstruction. I do not perform this type of surgery. I did give her my partner, Dr. Harris's name. The patient states that she is also aware of an orthopedic surgeon in [place] who might perform this type of surgery. She will follow up with whomever she chooses. I did give her a prescription for tramadol to help with her pain in the meantime. Feel free to call me at any time should questions regarding her orthopedic management arise. I spent 22 minutes in reviewing the patient's records and imaging studies, seeing the patient and documenting in the medical record. Orders: Orders XR knee LT 1V Today M25.562 - Pain in left knee XR knee RT 2V Today M25.569 - Pain in unspecified knee Medications: New tramadol 50 mg PO Q12H PRN 30 tabs 0RF pain Coding Level of Care Code Est Pt Level 3 (94282) Complex EM visit Add On G2211 Diagnoses Instability of right patellofemoral joint M25.361
== END 2024-12-07 15:00 | disposition home or self-care (01) ==
LOC: HO.HOS 14:18
PROVIDERS: PCP Internal Medicine; Visit Provider Orthopaedic Surgery
DX: M25.361 Other instability, right knee (principal)
CPT/HCPCS: 99213

== ENCOUNTER 2024-12-08 11:37 | Outpatient (REF) | payer MEDICAID, SELFPAY | END 2024-12-08 11:38 | disposition home or self-care (01) | LOC: HO.HOSX 11:37 | PROVIDERS: Visit Provider Physician Assistant | DX: Z13.89 Encounter for screening for other disorder (principal) ==

== ENCOUNTER 2024-12-20 08:50 | Outpatient (AMB) | payer MEDICAID, SELFPAY ==
--- NOTE | 2024-12-20 08:54 | MHC.OFFVIS ---
Vital Signs 12/20/24 08:55 Height 5 ft 1 in Weight 230 lb BMI 43.5 Intake Visit Reasons: OV- Right knee brace fitting Intake Note: Cheyanne is a 34 year old female who presents today for a right knee brace fitting. Patient reports the knee brace she was given at the ED on 11/17/24 is not helping and wishes to try other options. She states that her right knee will give out several times per day. She has done physical therapy exercises which aggravated her pain. Allergies apple Allergy (Verified 12/20/24 08:55) Throat itches Medication List - Last Reconciled 12/20/24 by Nabil Espinoza MD acetaminophen (Tylenol Extra Strength) 1,000 mg (2 x 500 mg) PO Q8H PRN aripiprazole (Abilify) 10 mg PO BEDTIME bupropion HCl XL 150 mg PO QAM buspirone 10 mg PO TID PRN cyclobenzaprine 10 mg PO BEDTIME PRN gabapentin 800 mg PO TID ibuprofen 600 mg PO Q6H PRN naproxen (Naprosyn) 500 mg PO BID tramadol 50 mg PO Q12H PRN PFSH Medical History PTSD (post-traumatic stress disorder) Anxiety Depression Charcot Leanna Tooth muscular atrophy Family History Mother Colon cancer Social History Household Members: Children Household Members Other:: Pt's son,sister and brother in law Housing: Apartment Patient Tobacco Use Status: Former Tobacco user Tobacco use type: Cigarette Second Hand Smoke Exposure: No Substance Use Type: Marijuana service: No Sexual orientation: Straight/Heterosexual Female Reproductive History Menstrual Age of Menarche: 13 Physical Exam Vital Signs: BMI result Body Mass Index 43.5 Extrem Other: Right knee examination shows a minimal effusion, minimal crepitus with range of motion, tenderness along her medial patellofemoral ligament, positive apprehension test Assessment & Plan Assessment & Plan (1) Knee instability: Code(s): M25.369 - Other instability, unspecified knee Category: Medical Plan Cheyanne presents with right knee pain and mechanical symptoms most likely due to patellofemoral instability. We attempted to have the patient fitted with 1 of our braces. None of our braces fit well. Thus, the patient was given a prescription for a hinged knee brace to help with her instability. The patient was given contact information to reach local surgeons who might be able to help with her problem surgically. She will follow up with me on an as-needed basis. I spent 21 minutes in reviewing the patient's records and imaging studies, seeing the patient and documenting in the medical record. Medications: New leg brace As directed 1 ea 0RF patella instability M25.369 - Other instability, unspecified knee Coding Level of Care Code Est Pt Level 3 (78932) Complex EM visit Add On G2211 Diagnoses Knee instability M25.369
[2024-12-20 08:55] VITALS: BMI 43.5
== END 2024-12-20 09:35 | disposition home or self-care (01) ==
PROVIDERS: PCP Internal Medicine; Visit Provider Orthopaedic Surgery
DX: M25.369 Other instability, unspecified knee (principal)
CPT/HCPCS: 99213

== ENCOUNTER → 2024-12-20 08:50 | Outpatient (BNVA) | payer OTHER, MEDICAID, SELFPAY | PROVIDERS: PCP Internal Medicine; Visit Provider Orthopaedic Surgery | DX: M25.361 Other instability, right knee (principal) | CPT/HCPCS: 99212 ==

== ENCOUNTER 2024-12-30 08:03 | Emergency (ER) | payer MEDICAID, SELFPAY ==
[2024-12-30] VITALS (8 sets, daily range): BP systolic 126–140; BP diastolic 65–83; PULSE 74–100; RESP 12–18; TEMP 36.5–36.8; O2SAT 97–99; BMI 44.4
--- NOTE | 2024-12-30 08:15 | ED.GENADULT ---
HPI - General Adult General Chief complaint: General Medical Stated complaint: Body pain Time Seen by Provider: 12/30/24 08:14 Source: patient Mode of arrival: wheelchair Limitations: no limitations History of Present Illness ED Provider: Nicol Sims PA-C HPI narrative: Patient is a 34 year old assigned female at with a history of CMT, MDD, and right knee instability presenting to the emergency department today with body aches. Patient states that over the last 4 days she has had body aches and overall body pain that gabapentin and tramadol have not helped. Patient states that she is in the process of finding an orthopedist to operate on her right knee instability and she has been under a lot of stress lately. Patient denies any dizziness, lightheadedness, abdominal pain, nausea, vomiting, fever, chills, blurry vision, double vision, loss of vision, chest pain, difficulty breathing, shortness of breath, back pain, night sweats, pain with urination, increased urinary frequency, increased urinary urgency, blood in her urine or stool, syncope or a near syncopal episode, recent trauma or falls, bowel incontinence, bladder incontinence, or any other complaints at this time. Onset (ago): day(s) (4) Relieving factors: none Exacerbating factors: none Associated symptoms: denies other symptoms Treatments prior to arrival: other (gabapentin and tramadol with no relief) Related Data Home Medications ?Medication ?Instructions ?Recorded ?Confirmed buspirone 10 mg tablet 10 mg PO TID PRN anxiety 07/25/24 12/20/24 cyclobenzaprine 10 mg tablet 10 mg PO BEDTIME PRN muscle spasms 07/25/24 12/20/24 Previous Rx's ?Medication ?Instructions ?Recorded aripiprazole 10 mg tablet (Abilify) 10 mg PO BEDTIME #30 tabs 01/29/23 bupropion HCl 150 mg 24 hr tablet, 150 mg PO QAM #30 tabs 01/29/23 extended release gabapentin 800 mg tablet 800 mg PO TID #90 tabs 01/29/23 naproxen 500 mg tablet (Naprosyn) 500 mg PO BID #20 tabs 10/05/24 acetaminophen 500 mg tablet 1,000 mg (2 x 500 mg) PO Q8H PRN 11/17/24 (Tylenol Extra Strength) pain #30 tabs ibuprofen 600 mg tablet 600 mg PO Q6H PRN pain #30 tabs 11/17/24 tramadol 50 mg tablet 50 mg PO Q12H PRN pain #30 tabs 12/07/24 leg brace #1 ea 12/20/24 Allergies Allergy/AdvReac Type Severity Reaction Status Date / Time apple Allergy Throat Verified 12/30/24 08:09 itches Review of Systems Constitutional: Constitutional: Reports no additional constitutional complaints, Reports body ache(s), Denies chills, Denies fever(s) and Denies night sweats Eyes: Eyes: Reports no additional eye complaints, Denies blurry vision, Denies change in vision, Denies diplopia, Denies eye discharge, Denies loss of vision and Denies eye pain ENT: Denies dizziness Cardiovascular: Cardiovascular: Reports no additional cardiovascular complaints, Denies chest pain, Denies lightheadedness, Denies Loss of Consciousness and Denies dyspnea Respiratory: Respiratory: Reports no additional respiratory complaints and Denies dyspnea Gastrointestinal: Gastrointestinal: Reports no additional gastrointestinal complaints, Denies abdominal pain, Denies melena, Denies hematochezia, Denies change in bowel habits and Denies change in stool character Genitourinary: Genitourinary: Denies hematuria, Denies urinary frequency, Denies dysuria, Denies urinary incontinence, Denies urinary hesitancy and Denies urinary urgency Musculoskeletal: Musculoskeletal: Reports no additional musculoskeletal complaints, Denies numbness and Denies tingling Neurologic: Denies dizziness, Denies loss of vision, Denies numbness and Denies tingling Psychiatric: Psychiatric: Reports no additional psychiatric complaints Endocrine: Endocrine: Reports no additional endocrine complaints Hematologic/Lymphatic: Hematologic/Lymphatic: Reports no additional hematologic/lymphatic complaints Allergic/Immunologic: Allergic/Immunologic: Reports no additional allergic/immunologic complaints [facility] Past Medical History Attestation statement: The following information was validated with the patient. Source: old records reviewed and nursing notes reviewed Medical History PTSD (post-traumatic stress disorder) Anxiety Depression Charcot Leanna Tooth muscular atrophy Family History Family History Mother Colon cancer Social History Social History Household Members: Children Household Members Other:: Pt's son,sister and brother in law Housing: Apartment Patient Tobacco Use Status: Former Tobacco user Tobacco use type: Cigarette Smoked in Last 30 Days: No Second Hand Smoke Exposure: No Use of substances other than those prescribed or required for medical reasons: Yes Substance Use Type: Marijuana Substance Use Frequency: Daily Advance Directives: No Advance Directives Information Provided: No Patient : No service: No Sexual orientation: Straight/Heterosexual Physical Exam ED Vital Signs: Vital Signs - 24 hr 12/30/24 08:08 12/30/24 09:22 12/30/24 09:28 Temperature 97.9 F 98.2 F Pulse Rate 100 78 Respiratory Rate 18 14 15 Blood Pressure 140/83 H 135/65 Pulse Oximetry 98 97 Oxygen Delivery Method Room Air Room Air 12/30/24 10:19 12/30/24 11:10 12/30/24 11:11 Temperature Pulse Rate 75 Respiratory Rate 12 14 14 Blood Pressure 126/68 Pulse Oximetry 98 Oxygen Delivery Method Room Air 12/30/24 11:48 Temperature Pulse Rate 74 Respiratory Rate 16 Blood Pressure 132/72 Pulse Oximetry 99 Oxygen Delivery Method Room Air BMI result Body Mass Index 44.4 Const General: cooperative, no acute distress, alert and awake Nutritional Appearance: well nourished Orientation/consciousness: patient oriented x3 Limitations: no limitations HENMT Head: Yes normal to inspection and Yes atraumatic Ears: hearing grossly normal bilaterally and external ears normal General nose exam: Normal external nose present, no nasal discharge noted and no epistaxis Face and sinus: Yes normal facial exam, No abrasion and No laceration Mouth: Normal oral and palatal mucosa present, no drooling and no muffled voice Eyes General: appearance normal, both eyes and all related structures Periorbital: periorbital findings normal Eyelids: Yes eyelids normal Conjunctivae: conjunctivae normal Pupils: Equal, round and reactive pupils present EOM: EOMs intact bilaterally Neck Neck: Yes normal visual inspection, Yes full ROM and Yes no lymphadenopathy Chest Chest palpation & inspection: normal inspection of the chest Resp Effort & Inspection: normal respiratory effort and able to speak in complete sentences GI Inspection: Yes normal to inspection Neuro General: patient oriented x3 and moves all extremities Cranial nerves: Yes Equal, round and reactive pupils present Cognition (Neuro): normal cognition Extrem General: Yes normal to inspection, Yes full ROM and Yes capillary refill normal Psych Appearance: grossly normal Mental Status: mental status grossly normal Affect: normal affect Attitude: cooperative Thought process: Normal thought process present Thought content: Normal thought content present Insight: Good insight present (Psych) Medications Administered Discontinued Medications Generic Name Dose Route Start Last Admin Trade Name Brenda PRN Reason Stop Dose Admin Diazepam 2.5 mg 12/30/24 10:39 12/30/24 11:09 Diazepam 10 Mg/2 Ml Cartridge IVPUSH 12/30/24 10:40 2.5 mg STAT STA Administration Hydromorphone HCl 0.5 mg 12/30/24 09:00 12/30/24 09:22 Hydromorphone Hcl 0.5 Mg/0.5 Ml Syringe IVPUSH 12/30/24 09:01 0.5 mg ONCE ONE Administration Protocol Acetaminophen 1,000 mg in 100 mls @ 400 mls/hr 12/30/24 10:39 12/30/24 11:09 Ofirmev IV 12/30/24 10:53 400 mls/hr ONCE ONE Administration Ketorolac Tromethamine 15 mg 12/30/24 10:39 12/30/24 11:10 Ketorolac Tromethamine 15 Mg/Ml Vial IVPUSH 12/30/24 10:40 15 mg ONCE ONE Administration Morphine Sulfate 4 mg 12/30/24 10:39 12/30/24 11:10 Morphine Sulfate 4 Mg/Ml Cartridge IVPUSH 12/30/24 10:40 4 mg ONCE ONE Administration Protocol Ondansetron HCl 4 mg 12/30/24 09:00 12/30/24 09:22 Ondansetron Hcl 4 Mg/2 Ml Vial IVPUSH 12/30/24 09:01 4 mg ONCE ONE Administration Medical Decision Making Medical Decision Making MDM Narrative: Patient is a 34 year old assigned female at with a history of CMT, MDD, and right knee instability presenting to the emergency department today with body aches. Patient's physical exam was unremarkable. Patient's blood work was unremarkable. I explained my physical exam findings as well as all test results to the patient. I answered all questions asked by the patient. Patient received IV dilaudid, morphine, tylenol, and toradol which, upon re-evaluation, she stated it helped her symptoms enough to be discharged comfortably home. I stressed the importance of the patient taking her medication as directed (either prescribed or as the over the counter packaging recommends). I stressed the importance of the patient following up with her primary care provider. I stressed the importance of the patient returning to the emergency department immediately if her symptoms were to worsen or if she were to develop any dizziness, shortness of breath, difficulty breathing, chest pain, blurry vision, loss of vision, nausea, vomiting, abdominal pain, fever, chills, back pain, or any other complaints. Patient verbalized agreement and understanding with this treatment plan and discharge. Differential Diagnosis Differential Diagnoses: The differential diagnosis associated with the presentation includes Musculoskeletal pain Acute on chronic musculoskeletal pain Admission/Observation Consideration of admission/observation: Escalation of care including admission/observation considered Patient would have been admitted to the hospital had her work up had any findings where hospital admission was appropriate and her clinical presentation warranted hospital admission. Lab Data [facility] Lab Attestation statement: I reviewed the patient's lab results. My interpretation of these results are in the [facility] Rationale portion of this note. 12/30/24 09:14 12/30/24 09:14 Labs: Lab Results 12/30/24 12/30/24 Range/Units 08:48 09:14 WBC 6.4 (4.8-10.8) X10*3/uL RBC 4.40 (4.20-5.50) X10*6/uL Hgb 12.5 (12.0-16.0) g/dl Hct 37.4 (37.0-47.0) % MCV 85.0 (80.0-98.0) fL MCH 28.4 (27.0-33.0) pg MCHC 33.4 (31.0-35.0) g/dl RDW 13.6 (11.0-16.0) % Plt Count 372 (160-400) X10*3/uL MPV 9.3 L (9.4-12.3) fL Immature Gran % (Auto) 0.3 (0.0-0.4) % Neut % (Auto) 69.1 (45-73) % Lymph % (Auto) 21.2 (20-40) % Buchanan % (Auto) 7.5 (2-11) % Eos % (Auto) 1.3 (0-4) % Baso % (Auto) 0.6 (0-2) % Lymph # (Auto) 1.4 (1.2-4.9) X10*3/uL Buchanan # (Auto) 0.5 (0.1-1.2) X10*3/uL Eos # (Auto) 0.1 (0.0-0.4) X10*3/uL Baso # (Auto) 0.0 (0.0-0.2) X10*3/uL Abs Immat Gran (auto) 0.02 (0.00-0.03) X10*3/uL Absolute Neuts (auto) 4.4 (2.0-8.3) x10*3/uL Absolute Nucleated RBC 0.000 (0.0-0.012) X10*3/uL Nucleated RBC % (auto) 0.0 (0.0-0.2) /100WBC Sodium 139 (135-145) mmol/L Potassium 4.0 (3.3-5.1) mmol/L Chloride 107 (96-108) mmol/L Carbon Dioxide 23 (22-29) mmol/L Anion Gap 13 (12-20) BUN 8 L (9-16) mg/dL Creatinine 0.71 (0.5-1.4) mg/dL Estim Creat Clear Calc 125.6 Estimated GFR > 60 Random Glucose 110 (60-115) mg/dL Calcium 9.4 (8.4-10.2) mg/dL Magnesium 2.1 (1.6-2.6) mg/dL Total Bilirubin 0.7 (0.0-1.0) mg/dL AST 23 (5-31) U/L ALT 20 (0-31) U/L Alkaline Phosphatase 87 (39-117) U/L C-Reactive Protein 0.46 (< or = 0.50) mg/dL Total Protein 7.6 (6.5-8.0) g/dL Albumin 3.8 (3.5-5.0) g/dL Beta HCG, Quant < 2 mIU/mL Influenza Type A (PCR) NEGATIVE (Negative) Influenza Type B (PCR) NEGATIVE (Negative) RSV RNA Qual (PCR) NEGATIVE (Negative) SARS-CoV-2 RNA (RT-PCR) NEGATIVE (Negative) Discharge Plan Discharge Clinical Impression: Musculoskeletal pain Patient Disposition: Home, Self-Care Instructions: Musculoskeletal Pain (ED) Additional Instructions: Follow up with your primary care provider. Return to the emergency department immediately if your symptoms worsen or if you develop any dizziness, shortness of breath, difficulty breathing, chest pain, blurry vision, loss of vision, nausea, vomiting, abdominal pain, fever, chills, back pain, or any other complaints. Prescriptions: No Action aripiprazole [Abilify] 10 mg tablet 10 mg PO BEDTIME Qty: 30 0RF Patient Comments: Patient stated she takes in the morning. bupropion HCl 150 mg tablet extended release 24 hr 150 mg PO QAM Qty: 30 0RF gabapentin 800 mg tablet 800 mg PO TID Qty: 90 0RF ibuprofen 600 mg tablet 600 mg PO Q6H PRN (Reason: pain) Qty: 30 0RF acetaminophen [Tylenol Extra Strength] 500 mg tablet 1,000 mg PO Q8H PRN (Reason: pain) Qty: 30 0RF cyclobenzaprine 10 mg tablet 10 mg PO BEDTIME PRN (Reason: muscle spasms) buspirone 10 mg tablet 10 mg PO TID PRN (Reason: anxiety) naproxen [Naprosyn] 500 mg tablet 500 mg PO BID Qty: 20 0RF tramadol 50 mg tablet 50 mg PO Q12H PRN (Reason: pain) Qty: 30 0RF (DME) leg brace Misc See Rx Instructions .Route Qty: 1 0RF Rx Instructions: As directed Referrals: Merly Carrington MD [Primary Care Provider] - Print Language: Belgian
--- OUTSIDE RECORDS SUMMARY | 2024-12-30 08:58 | XMS_ITS | Data Portability ---
Author Organization [place] [facility] Address [address] [place] [address] Assessment No assessment recorded. Plan of Treatment Reminders Order Date Submit Date Provider Last Modified By Organization Details Last Modified Time Details Appointments None recorded. Lab urinalysis , dipstick 2019 020 [email or web address] In-Office Order, Internal Use Only DO Not Attach Compendium DO Not Attach Compendium, Do Not Delete/merge, [id number] 15:46:33 Referral None recorded. Procedures None recorded. Surgeries None recorded. Imaging XR, lumbar spine 2018 019 [email or web address] In-Office Order, Internal Use Only DO Not Attach Compendium DO Not Attach Compendium, Do Not Delete/merge, [id number] 19:28:31 Medication Orders prednisone 20 mg tablet 2018 019 INTERFACE [facility][id number], [address], [place], [id number], 9 19:15:29 ibuprofen 600 mg tablet 2018 019 INTERFACE [facility] #[id number], [address], [place], [id number], 9 19:14:57 ketorolac 60 mg/2 mL intramuscu lar solution 2018 019 Not available 9 19:14:09 Augmentin 875 mg-125 mg tablet 2019 020 INTERFACE [facility][id number], [address], [place], [id number], 0 15:47:52 prednisone 20 mg tablet 2019 020 INTERFACE [facility] #[id number], [address], [place], [id number], 0 15:47:52 azelastine 137 mcg (0.1 %) nasal spray 2019 020 [facility] #[id number], [address], [place], [id number], 0 15:47:51 Patient TargetsNo targets recorded. Patient Instructions Encounter Date Encounter Id Patient Instructions Last Modified By Organization Details Last Modified Time 10/21/2019 [id number] Motrin 600 mg 3 times a day with meals Not available 10/21/2019 19:14:45 Patient instructed if no improvement in the next 2-3 days to see PCP or call [facility] Not available 10/21/2019 19:14:51 01/12/2020 [id number] Acute Sinusitis: Care Instructions [email or web address] Not available 01/12/2020 15:47:45 Reason for Referral None Reported. Results Created Date Observation Date Name Description Value Unit Range Abnormal Flag Note LastModifiedBy Organization Detail LastModifiedTime 01/12/2001/12/2020 urina lysis , dipst ick Leukocytes Trace Not Available In-Offi ce Order Internal Use Only DO Not Attach Compendium DO Not Attach Compendium, Do Not Delete/merge, [id number] 01/12/2020 15:22:32 01/12/20 20 01/12/2020 urina lysis , dipst ick Nitrite negati ve Not Available In-Office Order Internal Use Only DO Not Attach Compendium DO Not Attach Compendium, Do Not Delete/merge, [id number] 01/12/2020 15:22:32 01/12/20 20 01/12/2020 urina lysis , dipst ick Urobilinogen .2 Not Available In-Of fice Order Internal Use Only DO Not Attach Compendium DO Not Attach Compendium, Do Not Delete/merge, 01/12/2020 15:22:32 01/12/20 20 01/12/2020 urina lysis , dipst ick Protein Negati ve Not Available In-Office Order Internal Use Only DO Not Attach Compendium DO Not Attach Compendium, Do Not Delete/merge, 01/12/2020 15:22:32 01/12/20 20 01/12/2020 urina lysis , dipst ick pH 6.5 Not Available In-Office Order Internal Use Only DO Not Attach Compendium DO Not Attach Compendium, Do Not Delete/merge, 01/12/2020 15:22:32 01/12/20 20 01/12/2020 urina lysis , dipst ick Blood Small Not Available In-Office Order Internal Use Only DO Not Attach Compendium DO Not Attach Compendium, Do Not Delete/merge, 01/12/2020 15:22:32 01/12/20 20 01/12/2020 urina lysis , dipst ick Ketone Negati ve Not Available In-Office Order Internal Use Only DO Not Attach Compendium DO Not Attach Compendium, Do Not Delete/merge, 01/12/2020 15:22:32 01/12/20 20 01/12/2020 urina lysis , dipst ick Bilirubin Negati ve Not Available In-Office Order Internal Use Only DO Not Attach Compendium DO Not Attach Compendium, Do Not Delete/merge, 01/12/2020 15:22:32 01/12/20 20 01/12/2020 urina lysis , dipst ick Glucose Negati ve Not Available In-Office Order Internal Use Only DO Not Attach Compendium DO Not Attach Compendium, Do Not Delete/merge, 01/12/2020 15:22:32 10/26/20 19 10/21/2019 XR, lumba r spine No observ ation record ed. [email or web address] In-Office Order Internal Use Only DO Not Attach Compendium DO Not Attach Compendium, Do Not Delete/merge, 10/26/2019 10:20:20 Result Notes None recorded. Procedures Surgical History None recorded. Imaging Results Imaging Date Name Status LastModified by Organiz ation Details LastModified Time 10/21/2019 XR, lumbar spine completed [email or web address] In-Office Order Internal Use Only DO Not Attach Compendium DO Not Attach Compendium, Do Not Delete/merge, [id number] 10/26/2019 10:20:20 Procedure Notes None recorded. Medical Equipment None Reported. Allergies No known drug allergies Medications Name Sig Start Date Stop Date Status Note LastModified by Organization Details LastModified Time prednisone 20 mg tablet TK 2 TS PO QD FOR 5 DAYS active Not Available Not Available No t Available azelastine 137 mcg (0.1 %) nasal spray U 2 SPRAYS IEN BID active Not Available Not Available No t Available ibuprofen 600 mg tablet Take 1 tablet 3 times a day by oral route for 7 days. 2018 active Not Available Not Available Not Avai lable ketorolac 60 mg/2 mL intramuscula r solution Inject 2 mL by intramuscul ar route. 2018 active Not Available Not Available Not Avai lable amoxicillin 875 mg-potassium clavulanate 125 mg tablet TK 1 T PO BID FOR 7 DAYS active Not Available Not Available No t Available Vitals Date Recorded Body weight Provider Name an d Address Organization Details Last Updated DateTime 10/21/2019 81797.82 g [facility] 10/21/2019 18:27:38 Date Recorded Body mass index (BMI) Body height Provider Name and Address Organization Details Last Updated DateTime 10/21/2019 29.3 kg/m2 154.94 cm [facility] 10/21/2019 18:27:42 Date Recorded Body temperature Provider Name a nd Address Organization Details Last Updated DateTime 10/21/2019 97 [degF] [facility] 10/21/2019 18:33:13 Date Recorded Respiratory rate Provider Name a nd Address Organization Details Last Updated DateTime 10/21/2019 17 /min [facility] 10/21/2019 18:33:15 Date Recorded Oxygen saturation Oxygen saturation in Arterial blood by Pulse oximetry Provider Name and Address Organization Details Last Updated DateTime 10/21/2019 99 % 99 % [facility] 10/21/2019 18:33:17 Date Recorded Heart rate Provider Name an d Address Organization Details Last Updated DateTime 10/21/2019 105 /min Myrtle Clemons [facility] 10/21/2019 18:34:09 Date Recorded Body height Provider Name an d Address Organization Details Last Updated DateTime 01/12/2020 154.94 cm Myrtle MCKENNA [facility] 01/12/2020 15:22:35 Date Recorded Body mass index (BMI) Body weight Provider Name and Address Organization Details Last Updated DateTime 01/12/2020 28.9 kg/m2 03145.63 g Myrtle MCKENNA [facility] 01/12/2020 15:30:07 Date Recorded Body temperature Provider Name a nd Address Organization Details Last Updated DateTime 01/12/2020 98.5 [degF] Myrtle Clemons [facility] 01/12/2020 15:33:09 Date Recorded Respiratory rate Provider Name a nd Address Organization Details Last Updated DateTime 01/12/2020 17 /min Myrtle Clemons [facility] 01/12/2020 15:33:24 Date Recorded Oxygen saturation Oxygen saturation in Arterial blood by Pulse oximetry Provider Name and Address Organization Details Last Updated DateTime 01/12/2020 97 % 97 % Myrtle Clemons [facility] 01/12/2020 15:33:26 Date Recorded Heart rate Provider Name an d Address Organization Details Last Updated DateTime 01/12/2020 71 /min Myrtle Clemons [facility] 01/12/2020 15:33:30 Date Recorded Systolic blood pressure Diastolic blood pressure Provider Name and Address Organization Details Last Updated DateTime 10/21/2019 118 mm[Hg] 73 mm[Hg] Myrtle Clemons [facility] 10/21/2019 18:33:40 Date Recorded Systolic blood pressure Diastolic blood pressure Provider Name and Address Organization Details Last Updated DateTime 01/12/2020 110 mm[Hg] 53 mm[Hg] Myrtle Clemons [facility] 01/12/2020 15:33:34 Social History Question Answer Notes LastModified by Organizat ion Details LastModified Time Tobacco Smoking Status Never Smoker Myrtle swain [facility] 10/21/2019 18:28:01 What Was The Date Of Your Most Recent Tobacco Screening? 10/21/2019 Information n ot available 10/22/2019 Sex: Unknown Functional Status None recorded. Mental Status None recorded. Family History Relationship Description Onset Age of this Age Resolved Age Notes LastModified by Organization Details LastModified Time Father No current problems or disability [email or web address] Not available 10/01 18:24:50 Mother No current problems or disability Not available 10/01 18:24:50 Medical History Condition Response Anesthesia complications N Coronary Artery Disease N Gout N Erectile Dysfunction N Colonoscopy N Depression N COPD N Defects or Inherited Disease N Vascular Disease N Diabetes or High Blood Sugar N Eczema, Hives or other skin conditions N Obstructive Sleep Apnea N Anxiety Disorder N Muscle, Joint, or Bone Problems N Vision or Eye Problems N Arthritis N Cancer N Stroke N Dizziness/Fainting Spells N Anemia or Blood Disorder N Liver Disease N Fractures N Fibromyalgia N Heart Conditions N Ear or Hearing Problems N Infectious Disease N ADD or ADHD N Thyroid Problems N Kidney or Bladder Problems N Constipation N Psychiatric Illness N Other/Not Listed N Seizures/Epilepsy N Neurological Conditions N Headaches or Migraines N Tuberculosis N Diverticulitis N Asthma N Allergies N Cholesterol Elevation N GERD/Reflux N Hepatitis N Pulmonary Embolism N Hypertension N Osteoporosis N Gynecological HistoryNo gynecological history recorded. Obstetrics History GPAL:G 0 P 0 0 0 0 Past Encounters Encounter ID Performer Location Encounter Start Date Encounter Closed Date Diagnosis/Indication Diagnosis SNOMED-CT Code Diagnosis ICD10 Code Diagnosis Note [id number] Matt Vital MD [facility] [address] [place] [id number] 10/21/2019 18:21:10 10/21/2019 19:28:31 Low back pain 270408599 M54.5 Acute sciatica 209892888 M54.32 [id number] Brown Rider DO [facility] [address] [place] [phone] 01/12/2020 15:18:33 01/12/2020 16:07:34 Urinary tract infectious disease 08638721 N39.0 Acute sinusitis 00566351 J01.90 Cervical lymphadenitis 4604578 I88.9 Health Concerns Section Related Observation LastModified by Organization Detai ls LastModified Time None Recorded Concern Status LastModified by Organization Details LastModified Time None Recorded Advance Directives Directive None Recorded Payers Encounter Date Sequence Insurance Name Policy Number Policy Lin Covered Member ID Lin Member ID Guarantor Name 10/21/2019 2 [place] [employer] Viomil Delaney [id number] Viomil Delaney 01/12/2020 1 [facility] [employer] (MEDICAID HMO) [id number] Viomil Delaney [id number] Viomil Delaney 01/12/2020 2 [place] [employer] Viomil Delaney [id number] Viomil Delaney Notes Date Note Type Note Provider Name and Address Organization Details Recorded Time 10/21/2019 text/html Back Pain UCReported bypatient.Locatio n:pain radiating to the buttocks;pain radiating to the legs Quality:sharp Severity:pain level 8/10 Duration:1 weeks Context:prior back problemsNotes:Pt is having back pain ,from the middle down pt went to ER for the pain , pt got treaded she is still in pain , pain scale is an 8 at this time . it started over 1 week ago . (pt has CMT disease) , was diagnose 3 years ago , pt just moved from 1 house to the next she was lifting heavy furniture 2 weeks ago . Matt Vital MD [address] [place] [address], [address] [place] [address], [facility] 10/21/2019 19:15:58 01/12/2020 text/html UTI female UCReported bypatient.UTI Symptoms:urgency; flank pain;burning sensation during urination;abdomin al pain Severity:moderate Duration:3 weeksNotes:Pt think she has a UTI , burning , urgency , started 3 weeks ago , pt is also having pain and clogged both ears started 1 week ago . Brown Rider DO [address] [place] [address], [phone], [facility] 01/12/2020 15:49:25 OBGyn Episode No OBEpisode recorded.
--- OUTSIDE RECORDS SUMMARY | 2024-12-30 08:58 | XMS_ITS | Clinical Summary ---
Author Organization [facility] ity Address [address] [place] [address] Care Team Providers Care Drafter Landscape Name Role Phone Unavailable Primary Care Provider Unavailabl e Social History Tobacco Use Types Packs/Day Years Used Date Smoking Tobacco: Never Assessed Sex and Gender Information Value Date Recorded Sex Assigned at Not on file Gender Identity Not on file Sexual Orientation Not on file Plan of Treatment Health Maintenance Due Date Last Done Comments DTaP,Tdap,and Td Vaccines (1 - Tdap) 2009 Hepatitis B Vaccines (1 of 3 - 19+ 3-dose series) 2009 Cervical Cancer Screening: P ap Smear 2011 Depression Screening 06/07/2022 HIV Screening 06/07/2022 Hepatitis C Screening 06/07/2022 Social Influencers of Health Screening 06/07/2022 COVID-19 Vaccine (2023-2 5 season) 2024 Influenza Vaccine (#1) 2024 08/19/2019 HIB Vaccines Aged Out No longer eligi ble based on patient's age to complete this topic HPV Vaccines Aged Out No longer eligi ble based on patient's age to complete this topic Hepatitis A Vaccines Aged Out No long er eligible based on patient's age to complete this topic IPV Vaccines Aged Out No longer eligi ble based on patient's age to complete this topic MMR Vaccines Aged Out No longer eligi ble based on patient's age to complete this topic Meningococcal ACWY Vaccine Aged Out N o longer eligible based on patient's age to complete this topic Pneumococcal Vaccine: Pediat rics (0 to 5 Years) and At-Risk Patients (6 to 64 Years) Aged Out No longer eligi ble based on patient's age to complete this topic RSV Immunization Patients Un sharron 20 months Aged Out No longer eligible b ased on patient's age to complete this topic Varicella Vaccines Aged Out No longer eligible based on patient's age to complete this topic
--- OUTSIDE RECORDS SUMMARY | 2024-12-30 08:58 | XMS_ITS | Data Portability ---
Author Organization [employer], [facility] Address [address] [address] Assessment Encounter Date Assessment Date Assessment LastModified by Organization Details LastModified Time 05/22/2022 05/22/2022 32yo presents for annual exam. Doing Well. [email or web address] Not available 05/24/2022 15:38:07 Plan of Treatment Reminders Order Date Submit Date Provider Last Modified By Organization Details Last Modified Time Details Appointments None recorded. Lab HIV 1 + 2, meaningful use set 2021 022 [facility], [address], [place], [address], 21:05:43 RPR (rapid plasma reagin), serum 2021 022 [facility], [address], [place], [address], 2 21:05:42 hepatitis panel (A+B+C), acute, serum 2021 022 [facility], [address], [place], [address], 2 21:05:42 Pap smear tests - FPAR 2.0 set - lmp unknown 2021 022 [facility], [address], [place], [address], 21:05:[address] referral 2021 [email or web address] Not available 15:46:51 Procedures None recorded. Surgeries None recorded. Imaging None recorded. Medication Orders hydrocortis one 2.5 % topical cream 2021 022 [facility] Not available 18:49:49 Patient TargetsNo targets recorded. Patient Instructions Encounter Date Encounter Id Patient Instructions Last Modified By Organization Details Last Modified Time 05/22/2022 [id number] Instructed in healthy diet and exercise, safe sexual practices, family planning, self-breast exam and skin checks, and concurrent care by her PCP. Not available 05/22/2022 17:58:00 Reason for Referral System Technologist Referral for P soriasis Referring Physician: Karan Colon, SANDFILL OPERATOR, Encounter Date: 05/22/2022 Results Created Date Observation Date Name Description Value Unit Range Abnormal Flag Note LastModifiedBy Organization Detail LastModifiedTime 05/22/20 22 05/23/2022 HAV, HBV, HCV hep A Ab, total Positi ve negati ve abnormal Not Available [facility] ([facility]) [address] [place], [address], 05/23/2022 21:05:42 05/22/20 22 05/23/2022 HAV, HBV, HCV hep A Ab, IgM Negati ve negati ve Not Available [facility] ([facility]) [address] [place], [address], 05/23/2022 21:05:42 05/22/20 22 05/23/2022 HAV, HBV, HCV HBsAg screen Negati ve negati ve Not Available [facility] ([facility]) [address] [place], [address], 05/23/2022 21:05:42 05/22/20 22 05/23/2022 HAV, HBV, HCV hep B surface Ab, qual Non Reacti ve Non React debo: Incon siste nt with immun ity, less than 10 mIU/m L React debo: Consi stent with immun ity, great er than 9.9 mIU/m L Not Available [facility] ([facility]) [address] [place], [address], 05/23/2022 21:05:42 05/22/20 22 05/23/2022 HAV, HBV, HCV hep B core Ab, tot Negati ve negati ve Not Available [facility] ([facility]) [address] [place], [address], 05/23/2022 21:05:42 05/22/2005/23/2022 HAV, HBV, HCV rfx to hbc IgM Commen t Refle x crite kevin was not met. Not Available [facility] ([facility]) [address] [place], [address], 05/23/2022 21:05:42 05/22/2005/23/2022 HAV, HBV, HCV interpretati on Commen t HBV Serol ogy Inter preta tion Chart ----- ----- ----- ----- ----- ----- ----- ----- ----- ----- ----- ----- ----- -- Inter preta tion HBsAg anti- HBs anti- HBc anti- HBc IgM ----- ----- ----- ----- ----- ----- ----- ----- ----- ----- ----- ----- ----- -- Damon - Nicole te prese nt: + Nicole te absen t: - Test not indic ated: TNI ----- ----- ----- ----- ----- ----- ----- ----- ----- ----- ----- ----- ----- -- Susce ptibl e (neve r infec new and no evide nce - - - TNI of renatai radha n) ----- ----- ----- ----- ----- ----- ----- ----- ----- ----- ----- ----- ----- -- Immun e due to natur al resol indy infec tion - + + TNI ----- ----- ----- ----- ----- ----- ----- ----- ----- ----- ----- ----- ----- -- Immun e due to vacci natio n - + - TNI ----- ----- ----- ----- ----- ----- ----- ----- ----- ----- ----- ----- ----- -- Acute Infec tion + - + + ----- ----- ----- ----- ----- ----- ----- ----- ----- ----- ----- ----- ----- -- Chron ic infec tion + - + - ----- ----- ----- ----- ----- ----- ----- ----- ----- ----- ----- ----- ----- -- Inter preta tion uncle ar* - - + +/- ----- ----- ----- ----- ----- ----- ----- ----- ----- ----- ----- ----- ----- -- *Mult iple possi bilit ies: resol indy infec tion (most commo n); false - posit debo anti- HBc ([facility] eptib le); low- level chron ic infec tion ; resol ving acute infec tion. Not Available [facility] ([facility]) [address] [facility], [place], [address], 05/23/2022 21:05:42 05/22/20 22 05/23/2022 HAV, HBV, HCV HCV Ab <0.1 s/co_ ratio 0.0-0. 9 Not Available [facility] ([facility]) [address] [facility], [place], [address], 05/23/2022 21:05:42 05/22/20 22 05/23/2022 HAV, HBV, HCV interpretati on: Commen t Negat debo Not infec new with HCV, unles s recen t infec tion is suspe cted or other evide nce exist s to indic ate HCV infec tion. Not Available [facility] ([facility]) [address] [facility], [place], [address], 05/23/2022 21:05:42 05/22/20 22 05/23/2022 RPR, RFX QN RPR/C ONFIR M TP RPR Non Reacti ve non reacti ve Not Available [facility] ([facility]) [address] [facility], [place], [address], 05/23/2022 21:05:42 05/22/20 22 05/23/2022 HIV AB/P2 4 AG WITH REFLE X HIV Ab/P24 Ag screen Non Reacti ve non reacti ve HIV Negat debo HIV-1 /HIV- 2 antib odies and HIV-1 p24 antig en were NOT detec new. There is no labor atory evide nce of HIV infec tion. Not Available [facility] ([facility]) [address] [facility], [place], [address], 05/23/2022 21:05:43 05/22/20 22 05/26/2022 IGP,C TNG,A PTIMA HPV,R FX16/ 18,45 HPV aptima Negati ve negati ve This nucle ic acid ampli ficat ion test detec ts fourt een high- risk HPV types (16,1 8,31, 33,35 ,39,4 5,51, 52,56 ,58,5 9,66, 68) witho ut diffe renti ation . Not Available [facility] ([facility]) [address] [place], [address], 05/27/2022 21:05:38 05/22/20 22 05/26/2022 IGP,C TNG,A PTIMA HPV,R FX16/ 18,45 chlamydia, nuc. acid amp Negati ve negati ve Not Available [facility] ([facility]) [address] [place], [address], 05/27/2022 21:05:38 05/22/20 22 05/26/2022 IGP,C TNG,A PTIMA HPV,R FX16/ 18,45 gonococcus, nuc. acid amp Negati ve negati ve Not Available [facility] ([facility]) [address] [place], [address], 05/27/2022 21:05:38 05/22/20 22 05/27/2022 IGP,C TNG,A PTIMA HPV,R FX16/ 18,45 diagnosis: Commen t NEGAT DEBO FOR INTRA EPITH ELIAL LESIO N OR MALCONNIE HOOD . THIS SPECI MEN WAS RESCR EENED PART OF OUR QUALI TY CONTR OL PROGR AM. Not Available [facility] ([facility]) [address] [place], [address], 05/27/2022 21:05:38 05/22/20 22 05/27/2022 IGP,C TNG,A PTIMA HPV,R FX16/ 18,45 specimen adequacy: Osman vera Satis facto ry for evalu ation . Endoc ervic al and/o r squam ous metap lasti c cells (endo cervi ronnie compo nent) are prese nt. Not Available [facility] ([facility]) [address] [place], [address], 05/27/2022 21:05:38 05/22/20 22 05/27/2022 IGP,C TNG,A PTIMA HPV,R FX16/ 18,45 clinician provided ICD10: Osman vera Z01.4 19 Z20.2 Not Available [facility] ([facility]) [address] [place], [address], 05/27/2022 21:05:38 05/22/20 22 05/27/2022 IGP,C TNG,A PTIMA HPV,R FX16/ 18,45 performed by: Osman alanis, Cytot echno logis t (ASCP ) Not Available [facility] ([facility]) [address] [place], [address], 05/27/2022 21:05:38 05/22/20 22 05/27/2022 IGP,C TNG,A PTIMA HPV,R FX16/ 18,45 QC reviewed by: Osman Vee , Cytot echno logis t (ASCP ) Not Available [facility] ([facility]) [address] [place], [address], 05/27/2022 21:05:38 05/22/20 22 05/27/2022 IGP,C TNG,A PTIMA HPV,R FX16/ 18,45 . . Not Available [facility] ([facility]) [address] [place], [address], 05/27/2022 21:05:38 05/22/20 22 05/27/2022 IGP,C TNG,A PTIMA HPV,R FX16/ 18,45 note: Commen t The Pap smear is a scree anaya test desig shai to aid in the detec tion of syeda ligna nt and malig nant condi tions of the uteri ne cervi x. It is not a diagn ostic proce dure and shoul d not be used as the sole means of detec ting cervi ronnie cance r. Both false -posi tive and false -nega tive repor ts do occur . Not Available [facility] ([facility]) [address] [facility], [place], [address], 05/27/2022 21:05:38 05/22/20 22 05/27/2022 IGP,C TNG,A PTIMA HPV,R FX test methodology: Osman t This liqui d based ThinP rep(R ) pap test was scree shai with the use of an image guide d aaron m. Not Available [facility] ([facility]) [address] [facility], [place], [address], 05/27/2022 21:05:38 Result Notes None recorded. Medical Equipment None Reported. Allergies No known drug allergies Medications Name Sig Start Date Stop Date Status Note LastModified by Organization Details LastModified Time cyclobenzap rine 10 mg tablet TAKE 1 TABLET BY MOUTH THREE TIMES DAILY 05/22 completed Not Available Not Available Not Available fluconazole 150 mg tablet TAKE 1 TABLET BY MOUTH DIRECTED 05/22 completed Not Available Not Available Not Available metronidazo le 500 mg tablet TAKE 1 TABLET BY MOUTH TWICE DAILY 05/22 completed Not Available Not Available Not Available ciprofloxac in 500 mg tablet TAKE 1 TABLET BY MOUTH TWICE DAILY 05/22 completed Not Available Not Available Not Available cyclopentol ate 1 % eye drops INSTILL 1 DROP IN RIGHT EYE TWICE DAILY 05/22 completed Not Available Not Available Not Available oxycodone-a cetaminophe n 5 mg-325 mg tablet TAKE 1 TABLET BY MOUTH EVERY 6 HOURS NEEDED 05/22 completed Not Available Not Available Not Available prednisolon e acetate 1 % eye drops,suspe nsion SHAKE LIQUID AND INSTILL 1 DROP IN RIGHT EYE FOUR TIMES DAILY active Not Available Not Available No t Available gabapentin 800 mg tablet TAKE 1 TABLET BY MOUTH THREE TIMES DAILY active Not Available Not Available No t Available benzonatate 100 mg capsule 05/22 completed Not Available Not Available Not Available prednisone 50 mg tablet 05/22 completed Not Available Not Available Not Available hydrocortis one 2.5 % topical cream APPLY A THIN LAYER TO THE AFFECTED AREA(S) BY TOPICAL ROUTE 2 TIMES PER DAY active Not Available Not Available No t Available albuterol sulfate HFA 90 mcg/actuati on aerosol inhaler INHALE 2 PUFFS BY MOUTH EVERY 4 HOURS NEEDED FOR WHEEZING 05/22 completed Not Available Not Available Not Available naproxen 500 mg tablet TAKE 1 TABLET BY MOUTH TWICE DAILY 05/22 completed Not Available Not Available Not Available oxycodone 5 mg tablet TAKE 1 TABLET BY MOUTH EVERY 6 HOURS NEEDED FOR SEVERE PAIN 05/22 completed Not Available Not Available Not Available cyclobenzap rine 5 mg tablet TAKE 1 TABLET BY MOUTH THREE TIMES DAILY NEEDED FOR MUSCLE SPASM 05/22 completed Not Available Not Available Not Available aripiprazol e 5 mg tablet TAKE 1 TABLET BY MOUTH DAILY active Not Available Not Available No t Available bupropion HCl XL 150 mg 24 hr tablet, extended release TAKE 1 TABLET BY MOUTH EVERY 24 HOURS active Not Available Not Available No t Available nitrofurant oin monohydrate /macrocryst als 100 mg capsule TAKE 1 CAPSULE BY MOUTH TWICE DAILY 05/22 completed Not Available Not Available Not Available Vitals Date Recorded Body height Body mass index (BMI) Body weight Systolic blood pressure Diastolic blood pressure Provider Name and Address Organization Details Last Updated DateTime 05/22/2022 154.94 cm 30.4 kg/m2 09404.37 g 110 mm[Hg] 74 mm[Hg] [facility] 18:03:39 Social History Question Answer Notes LastModified by Organizat ion Details LastModified Time Tobacco Smoking Status Former Smoker [facility] 05/22/2022 18:02:18 What Is Your Level Of Alcohol Consumption? Occasional Information not available 05/22/2022 If You Are , What Was Your Level Of Alcohol Consumption Prior To ? None Information not available 05/22/2022 What Is Your Level Of Caffeine Consumption? None Information not available 05/22/2022 Do You Use Any Illicit Or Recreational Drugs? No Information not available 05/22/2022 Has Tobacco Cessation Counseling Been Provided? No Information not available 05/22/2022 Do You Or Have You Ever Used Any Other Forms Of Tobacco Or Nicotine? No Information not available 05/22/2022 Sex: Unknown Functional Status None recorded. Mental Status None recorded. Family History Relationship Description Onset Age of this Age Resolved Age Notes LastModified by Organization Details LastModified Time Father No current problems or disability Not available 05/22 18:02:00 Mother No current problems or disability Not available 05/22 18:02:00 Medical History Condition Response Allergies (Food, seasonal, environmental ) N Other Y Blood Transfusion N Drug/Latex Allergies/Reactions N Breast Cancer N Lung Disease N Dermatologic Disorders N Defects or Inherited Disease N Breast Problem N Gestational Diabetes N Hematologic disorders N Anesthesia Complications N History of STI N Deep Vein Thrombosis N Polycystic ovary syndrome N Anxiety Disorder N Autoimmune disease N Arthritis N Polyps N Infertility N Acid Reflux (GERD) N History of abnormal pap N Cancer N Stroke N Varicosities N Neurologic/Epilepsy N Endometriosis N High Cholesterol N Fibromyalgia N Headaches N Kidney Disease N Heart Problems N Thyroid Problems N Kidney or Bladder Problems N GI Problems N Acne N Eating Disorder N Anemia N Art (IVF or FET) N Psychiatric Illness N Diabetes N Ovarian Cancer N Pulmonary (TB, Asthma) N Hepatitis/Liver Disease N Eczema N Abuse/Domestic Violence N Asthma N Trauma/Violence N Depression/ depression N Heart Disease N Pre-Eclampsia N Hypertension N Osteoporosis N Thrombophilias N Gynecological History Statement/Question Response Abnormal Pap N Flow Moderate STIs/STDs Y HPV Vaccine N Duration of Flow (days) 5 Age at Menarche 12 Frequency of Cycle (Q days) 28 Sexually Active? Y Menses Monthly Y Date of Last Pap Smear Sexual Problems? N LMP Approximate Obstetrics History GPAL:G 2 P 2 0 0 2 Type Value Full Term 2 Living 2 Total 2 Past Encounters Encounter ID Performer Location Encounter Start Date Encounter Closed Date Diagnosis/Indication Diagnosis SNOMED-CT Code Diagnosis ICD10 Code Diagnosis Note [id number] Karan Colon MD [facility] [place] [address] [facility] [address] [id number] 05/22/2022 17:23:07 05/22/2022 19:05:21 Gynecologic examination 04935726 Z01.419 Z20.2 Reviewed importance of annual exams, screening tests, PCP visits Surveillan ce of contraception 937820589 Z30.41 Same sex partner Psoriasis 5009990 L40.9 At [facility] risk of sexually transmitted infection 093555271 Z20.2 Health Concerns Section Related Observation LastModified by Organization Detai ls LastModified Time None Recorded Concern Status LastModified by Organization Details LastModified Time None Recorded Advance Directives Directive None Recorded Payers Encounter Date Sequence Insurance Name Policy Number Policy Lin Covered Member ID Lin Member ID Guarantor Name 05/22/2022 1 [id number] (MEDICARE REPLACEMENT/A DVANTAGE - PPO) Viomil Dinzey Delaney [id number] Viomil Dinzey-Shahnaz a Notes Date Note Type Note Provider Name and Address Organization Details Recorded Time 05/22/2022 text/html Presents for annual exam LMP: 05/08/2022Menses: Regular. 5 days q 28 daysLast Pap: 3 years agoAbnormal Pap Smears: DeniesMammogram: Not yet indicatedColonosc opy: Not yet indicated Contraception: NoneCOVID Vaccine: Moderna x 2 doses CMT: Sees neurologist. Karan Colon MD [address] [place] [address], [place], [address], [facility] 05/24/2022 15:38:46 OBGyn Episode Ob Episode Information Episode Created Date Number of Fetuses Patient Bloodtype Patient rh Status Prepregnancy Weight lbs Domestic Partner Domestic Partner Phone Father Name Security Management Specialist Status 05/22/20 22 1 CLOSED Fetus Data First Name Last Name Admitted to NICU Weight (g) Sex Living Outcome Pediatric Complications Fetus ID Race Codes Race Delivery Type M Full Term [id number] Vaginal Anish Calculation Initial Anish Date Initial Exam Date Initial Exam Provider Initial Ultrasound Date Last Menstrual Period Date Ultra Sound Weeks Gestation 0 Eighteen To Twenty Week Anish Update Ultra Sound Date Fundal Height At Umbil Quickening Date Ultra Sound Latest Weeks Gestation Final Anish Confirmed By Final Anish Confirmed Date Final Anish Date Ultra Sound Latest Days Gestation 0 0 Menstrual History Last Menstrual Date Menses Monthly On Bcp Conception Prior Menses Frequency Hcg Plus Date Menarche Onset Age Delivery Information Delivery Date Delivery Type Labor Anesthesia Weeks Gestation Incision Type Labor Labor Length Hrs Delivered By Post Complications Tubal Sterilization Discharge Date Comments 5 [facility] Discharge Information Feeding Method Contraceptive Method Maternal HG B and HCT Levels Ob Episode Information Episode Created Date Number of Fetuses Patient Bloodtype Patient rh Status Prepregnancy Weight lbs Domestic Partner Domestic Partner Phone Father Name Security Management Specialist Status 05/22/20 22 1 CLOSED Fetus Data First Name Last Name Admitted to NICU Weight (g) Sex Living Outcome Pediatric Complications Fetus ID Race Codes Race Delivery Type M Full Term [id number] Vaginal Anish Calculation Initial Anish Date Initial Exam Date Initial Exam Provider Initial Ultrasound Date Last Menstrual Period Date Ultra Sound Weeks Gestation 0 Eighteen To Twenty Week Anish Update Ultra Sound Date Fundal Height At Umbil Quickening Date Ultra Sound Latest Weeks Gestation Final Anish Confirmed By Final Anish Confirmed Date Final Anish Date Ultra Sound Latest Days Gestation 0 0 Menstrual History Last Menstrual Date Menses Monthly On Bcp Conception Prior Menses Frequency Hcg Plus Date Menarche Onset Age Delivery Information Delivery Date Delivery Type Labor Anesthesia Weeks Gestation Incision Type Labor Labor Length Hrs Delivered By Post Complications Tubal Sterilization Discharge Date Comments 6 [facility] Discharge Information Feeding Method Contraceptive Method Maternal HG B and HCT Levels
--- OUTSIDE RECORDS SUMMARY | 2024-12-30 08:58 | XMS_ITS | Data Portability ---
Author Organization TE[facility] rose, [facility]_ Stefan Address [address] [address] Assessment No assessment recorded. Plan of Treatment Reminders Order Date Submit Date Provider Last Modified By Organization Details Last Modified Time Details Appointments None recorded. Lab PPD (purified protein derivative ), skin test 2018 019 UDAY Nps_n_pcp_rha wn_office, [address] [place], [address], 9 10:04:36 CBC w/ auto diff 2018 019 [email or web address] [facility], [address] [place] [address], [place], [address], 0 14:32:12 beta-HCG, qualitativ e, serum or plasma 2018 019 [email or web address] [facility], [address] [place] [address], [place], [address], 0 14:32:12 Referral gastroente rologist referral 2018 019 [email or web address] Not available 9 07:24:03 rheumatolo gist referral 2018 019 [email or web address] Gutierrez Krishnan MD, [address] [place], [address], 9 07:24:03 Procedures None recorded. Surgeries None recorded. Imaging None recorded. Medication Orders buspirone 10 mg tablet 2018 019 INTERFACE [id number], [address], [place], [id number], 9 09:28:31 Wellbutrin SR 150 mg tablet, 12 hr sustained- release 2018 019 [facility], [address] [place] [address], [id number], 9 13:42:42 fluoxetine 20 mg capsule 2018 019 [email or web address] [facility]78[facility], [address] [place] [address], [id number], 9 13:32:58 dicyclomin e 10 mg capsule 2018 019 INTERFACE [facility]11939, [address] [place] [address], [id number], 9 13:59:54 famotidine 20 mg tablet 2018 019 [email or web address] [facility]10800, [address] [place] [address], [id number], 9 13:32:44 fluoxetine 20 mg capsule 2018 019 [email or web address] [facility]20, [address] [place] [address], [id number], 9 13:32:58 buspirone 10 mg tablet 2018 019 INTERFACE [facility] #56584, [address] [place] [address], [id number], 9 13:59:48 bupropion HCl XL 150 mg 24 hr tablet, extended release 2018 019 INTERFACE [facility] #55433, [address] [place] [address], [id number], 08/30/201 9 13:59:46 Patient TargetsNo targets recorded. Patient Instructions Encounter Date Encounter Id Patient Instructions Last Modified By Organization Details Last Modified Time 05/27/2019 [id number] eating healthy foods: care instructions [email or web address] Not available 05/27/2019 09:28:26 08/19/2019 [id number] call answering service over weekend if feel worse, you develop fevers, nausea or vomiting, if pain gets worse or if bleeding does not continue to lessen. f/u Thursday with Allan for next steps. 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 Fibromyalgia Referring Physician: Allan Connelly, Family Medicine, Encounter Date: 05/27/2019 Dye Automation Operator Referral for Lower abdominal pain Referring Physician: Allan Connelly [facility], Encounter Date: 05/27/2019 Results Created Date Observation Date Name Description Value Unit Range Abnormal Flag Note LastModifiedBy Organization Detail LastModifiedTime 05/30/2005/30/2019 PPD (ollie fied prote in deriv ative ), skin test Unknown Analyte Unknow n Not Available Nps_n_pcp_r avila wn_office [address] [place] [address], [phone], 05/27/2019 09:23:53 05/30/20 19 05/30/2019 PPD (ollie fied prote in deriv ative ), skin test Unknown Analyte Unknow n Not Available Nps_n_pcp_r avila wn_office [address] [place] [address], [phone], 05/27/2019 09:23:53 05/30/20 19 05/30/2019 PPD (ollie fied prote in deriv ative ), skin test Unknown Analyte [id number] Not Available Nps_n_ pcp_rha wn_office [address] [place] [address], [phone], 05/27/2019 09:23:53 05/30/20 19 05/30/2019 PPD (ollie fied prote in deriv ative ), skin test Unknown Analyte 0 Not Available Nps_n_pcp_r avila wn_office [address] [place] [address], [phone], 05/27/2019 09:23:53 05/30/20 19 05/30/2019 PPD (ollie fied prote in deriv ative ), skin test Unknown Analyte par pharma ceutic al Not Available Nps_n_pcp_r avila wn_office [address] [place] [address], [phone], 05/27/2019 09:23:53 05/30/20 19 05/30/2019 PPD (ollie fied prote in deriv ative ), skin test Unknown Analyte 0.1ml Not Available Nps_n_ pcp_rha wn_office [address] [place] [address], [phone], 05/27/2019 09:23:53 05/30/20 19 05/30/2019 PPD (ollie fied prote in deriv ative ), skin test Unknown Analyte right forear m Not Available Nps_n_pcp_r avila wn_office [address] [place] [address], [phone], 05/27/2019 09:23:53 05/30/20 19 05/30/2019 PPD (ollie fied prote in deriv ative ), skin test Unknown Analyte 019 Not Available Nps_n_pcp_r avila wn_office [address] [place] [address], [phone], 05/27/2019 09:23:53 05/30/20 19 05/30/2019 PPD (ollie fied prote in deriv ative ), skin test Unknown Analyte 9:40 am Not Available Nps_n_pcp_r avila wn_office [address] [place] [address], [address], 05/27/2019 09:23:53 05/30/20 19 05/30/2019 PPD (ollie fied prote in deriv ative ), skin test Unknown Analyte Intrad ermal Not Available Nps_n_pcp_r avila wn_office [address] [place] [address], [phone], 05/27/2019 09:23:53 05/30/20 19 05/30/2019 PPD (ollie fied prote in deriv ative ), skin test Unknown Analyte 2018 Not Available Nps_n_pcp_r avila wn_office [address] [place] [address], [phone], 05/27/2019 09:23:53 05/30/20 19 05/30/2019 PPD (ollie fied prote in deriv ative ), skin test Unknown Analyte 08:54 am Not Available Nps_n_pcp_r avila wn_office [address] [place] [address], [phone], 05/27/2019 09:23:53 05/30/20 19 05/30/2019 PPD (ollie fied prote in deriv ative ), skin test Unknown Analyte negati ve Not Available Nps_n_pcp_r avila wn_office [address] [place] [address], [phone], 05/27/2019 09:23:53 05/30/20 19 05/30/2019 PPD (ollie fied prote in deriv ative ), skin test Unknown Analyte 0mm Not Available Nps_n_ pcp_rha wn_office [address] [place] [address], [phone], 05/27/2019 09:23:53 Result Notes None recorded. Problems Name Problem SNOMED Code Status Onset Date Resolution Date Notes Provider Name and Address Organization Details Recorded Time Borderline personality disorder 60773853 Active 2018 JOSE ALFREDO Ibanez [employer] [facility], [address], [place], [address], [place] [facility] [place] 9 09:26:04 Posttraumati c stress disorder 74578223 Active 2018 JOSE ALFREDO Ibanez [employer] [facility], [address], [place], [address], [place] [facility] [place] 9 09:26:06 Severe major depression 841091279 Active 2018 JOSE ALFREDO Ibanez [address] [facility], [address], [place], [address], [facility] - Sarah - [place] 9 09:26:08 Lopez matta 196351432 Active 2018 JOSE ALFREDO Ibanez [address] [facility], [address], [place], [address], [facility] - Sarah - [place] 9 09:27:21 Fibromyalgia 773020321 Active 2018 JOSE ALFREDO Ibanez [address] [facility], [address], [place], [address], [facility] - Sarah - [place] 9 09:27:32 Problem Notes None recorded. Medical Equipment None Reported. Allergies No known drug allergies Medications Name Sig Start Date Stop Date Status Note LastModified by Organization Details LastModified Time acetaminoph en 325 mg tablet 05/27 completed Not Available Not Available Not Available Carafate 100 mg/mL oral suspension 05/27 completed Not Available Not Available Not Available hydrocodone 5 mg-acetamin ophen 325 mg tablet 05/27 completed Not Available Not Available Not Available phenazopyri dine 200 mg tablet 05/27 completed Not Available Not Available Not Available ondansetron HCl 4 mg tablet 05/27 completed Not Available Not Available Not Available quetiapine 200 mg tablet 05/27 completed Not Available Not Available Not Available Wellbutrin SR 150 mg tablet, 12 hr sustained-r elease Take 1 tablet every day by oral route. 07/29 completed Not Available Not Available Not Available acetaminoph en 300 mg-codeine 30 mg tablet 05/27 completed Not Available Not Available Not Available peg-electro lyte solution 420 gram oral solution 05/27 completed Not Available Not Available Not Available oxycodone-a cetaminophe n 5 mg-325 mg tablet 05/27 completed Not Available Not Available Not Available famotidine 20 mg tablet take 1 tablet once a day 08/19 completed Not Available Not Available Not Available cephalexin 500 mg capsule 05/27 completed Not Available Not Available Not Available nortriptyli ne 10 mg capsule 05/27 completed Not Available Not Available Not Available trazodone 150 mg tablet 05/27 completed Not Available Not Available Not Available buspirone 30 mg tablet 05/27 completed Not Available Not Available Not Available buspirone 10 mg tablet take 1 tablet by mouth twice a day active Not Available Not Available No t Available prednisone 50 mg tablet 05/27 completed Not Available Not Available Not Available fluoxetine 10 mg capsule 05/27 completed Not Available Not Available Not Available buspirone 7.5 mg tablet 05/27 completed Not Available Not Available Not Available capsaicin 0.025 % topical cream 05/27 completed Not Available Not Available Not Available ibuprofen 600 mg tablet 05/27 completed Not Available Not Available Not Available fluoxetine 20 mg capsule Take 1 capsule every day by oral route. 08/19 completed Not Available Not Available Not Available sertraline 50 mg tablet 05/27 completed Not Available Not Available Not Available dicyclomine 10 mg capsule Take 1 capsule 3 times a day by oral route. active Not Available Not Available No t Available naproxen 500 mg tablet 05/27 completed Not Available Not Available Not Available Ventolin HFA 90 mcg/actuati on aerosol inhaler 07/29 completed Not Available Not Available Not Available bupropion HCl XL 150 mg 24 hr tablet, extended release Take 1 tablet every day by oral route. active Not Available Not Available No t Available nitrofurant oin monohydrate /macrocryst als 100 mg capsule 05/27 completed Not Available Not Available Not Available quetiapine ER 200 mg tablet,exte nded release 24 hr 05/27 completed Not Available Not Available Not Available quetiapine ER 50 mg tablet,exte nded release 24 hr 05/27 completed Not Available Not Available Not Available quetiapine ER 150 mg tablet,exte nded release 24 hr 07/29 completed Not Available Not Available Not Available Nexplanon 68 mg subdermal implant Inject by subcutane ous route. active Not Available Not Available No t Available Vitals Date Recorded Body temperature Body height Body mass index (BMI) Body weight Heart rate Oxygen saturation Oxygen saturation in Arterial blood by Pulse oximetry Pain severity - 0-10 verbal numeric rating [Score] - Reported Systolic blood pressure Diastolic blood pressure Provider Name and Address Organization Details Last Updated DateTime 9 97.7 [degF] 154.94 cm 28.5 kg/m2 47455.4 5 g 71 /min 97 % 97 % 6 110 mm[Hg] 70 mm[Hg] Odette Sung [place] 9 08:38:11 Date Recorded Body height Body mass index (BMI) Body weight Body temperature Heart rate Oxygen saturation Oxygen saturation in Arterial blood by Pulse oximetry Pain severity - 0-10 verbal numeric rating [Score] - Reported Systolic blood pressure Diastolic blood pressure Provider Name and Address Organization Details Last Updated DateTime 9 154.94 cm 28.7 kg/m2 56557.0 4 g 98.6 [degF] 80 /min 99 % 99 % 5 100 mm[Hg] 70 mm[Hg] [facility] 13:45:06 Date Recorded Body height Body mass index (BMI) Body weight Pain severity - 0-10 verbal numeric rating [Score] - Reported Body temperature Heart rate Oxygen saturation Oxygen saturation in Arterial blood by Pulse oximetry Systolic blood pressure Diastolic blood pressure Provider Name and Address Organization Details Last Updated DateTime 9 154.94 cm 28.9 kg/m2 06638.6 3 g 4 98.9 [degF] 86 /min 98 % 98 % 120 mm[Hg] 82 mm[Hg] Kourtney Garcia AL [facility] 9 13:34:37 Social History Question Answer Notes LastModified by Organizat ion Details LastModified Time Tobacco Smoking Status [facility] 05/[facility] 08:52:51 Do You Have An Advance Directive? No Information not available 05/27/2019 What Is Your Level Of Alcohol Consumption? None Information not available 05/27/2019 What Is Your Level Of Caffeine Consumption? None Information not available 05/27/2019 What Type Of Illicit Drug Use? Other Former Benzo Abuse Information not available 05/27/2019 Have You Traveled Within The Past 3 Months? No Information not available 05/27/2019 ALCOHOL Last Updated 07/29/2019 Information not available 07/29/2019 ILLICIT DRUGS Last Updated 07/29/2019 Information not available 07/29/2019 CAFFEINE INTAKE Last Updated 07/29/2019 Information not available 07/29/2019 Within The Past 12 Months, We Were Worried Whether Our Food Would Run Out Before We Could Get Money To Buy More. No Information not available 05/27/2019 Within The Past 12 Months, The Food We Bought Just Didn't Last And We Didn't Have Money To Buy More. No Information not available 05/27/2019 INFECTIOUS DISEASE EXPOSURE Last Updated 07/29/2019 Information not available 07/29/2019 Do You Use Illicit Drugs? Yes Information not available 05/27/2019 What Type Of Illicit Drug Use? Marijuana Information not available 05/27/2019 ABUSE Last Updated 07/29/2019 Information not available 07/29/2019 Date Previous Abuse Screening Performed: 05/27/2019 Information not available 05/27/2019 Have You Ever Been Emotionally Or Physically Abused By Your Partner, Caregiver Or Someone Important To You? No Information not available 05/27/2019 Within The Past Year, Have You Been Hit, Kicked Or Otherwise Physically Hurt By Someone? No Information not available 05/27/2019 Within The Last Year, Has Anyone Forced You To Have Sexual Activity? No Information not available 05/27/2019 Are You Afraid Of Your Partner, Caregiver Or Anyone Else? No Information not available 05/27/2019 Clinician/Family Believes Neglect, Abuse, Or Exploitation May Exist: No Information not available 05/27/2019 AMBULATORY Last Updated 07/29/2019 Information not available 07/29/2019 ADVANCE DIRECTIVE Last Inquired 07/29/2019 Information not available 07/29/2019 FOOD SECURITY Last Updated 07/29/2019 Information not available 07/29/2019 What Was The Date Of Your Most Recent Tobacco Screening? 07/29/2019 Information not available 07/29/2019 Are You Passively Exposed To Smoke? No Information not available 05/27/2019 Do You Or Have You Ever Used Smokeless Tobacco? Never Used Smokeless Tobacco Information not available 07/29/2019 How Much Tobacco Do You Smoke? No Information not available 05/27/2019 Has Tobacco Cessation Counseling Been Provided? No Information not available 05/27/2019 Do You Have Symptoms Associated With Zika Virus (fever, Rash, Joint Pain, Or Conjunctivitis)? No Information not available 05/27/2019 Have You Recently (within The Last 12 Weeks, Or During A Current ) Traveled To Or Lived In A Zika-affected Area? No Information not available 05/27/2019 Sex: Unknown Functional Status Question Answer Note LastModified by Organization D etails LastModified Time Are you able to walk? YESWOREST Information not available 07/29/2019 Mental Status None recorded. Family History Relationship Description Onset Age of this Age Resolved Age Notes LastModified by Organization Details LastModified Time Mother Malignant tumor of colon 39 Not available 2018 08:52:12 Maternal Aunt Depressive disorder mzang Not available 2018 09:13:13 Maternal Aunt Hypertensive disorder mzang Not available 2018 09:13:23 Maternal Aunt Malignant neoplasm of brain 40 mzang Not available 2018 09:13:52 Medical History No medical history recorded. Gynecological History Statement/Question Response Duration of Flow (days) 7 Date of LMP 07/24/2019 Obstetrics History GPAL:G 0 P 0 0 0 0 Immunizations Vaccine Type Date Status Note Provider Nam e and Address Organization Details Recorded Time Influenza, MDCK, quadrivalent, PF 08/19/2019 completed Not Available [facility] 0 02:[facility]:58 Past Encounters Encounter ID Performer Location Encounter Start Date Encounter Closed Date Diagnosis/Indication Diagnosis SNOMED-CT Code Diagnosis ICD10 Code Diagnosis Note [id number] JOSE ALFREDO Ibanez NPS_N_PCP _[facility] [address] [place] [address] 05/27/2019 08:14:17 05/27/2019 10:03:00 Adult health examination 959227247 Z00.00 Diet and exercise discussed Overweight 399963850 E66 .3 Family his tory of cancer of colon 497457717 Z80.0 Had colonoscop y yesterday Fibromyalgia 385604970 M 79.7 Lower abdominal pain 545 42876 R10.30 Unclear Dx Chiari malformation 2531 29573 Q07.00 Tuberculos is screening 256962849 Z11.1 PPD placed today for [facility] form Severe rajwinder or depression 754260204 F32.2 Requesting records but also starting form for [facility]. Giving 1mon supply of medication . No SI Posttrauma tic stress disorder 00234997 F43.10 Borderline personality disorder 72409903 F60.3 [id number] JOSE ALFREDO Ibanez NPS_N_PCP _[facility]Of [address] [address] 07/29/2019 13:32:56 07/29/2019 14:00:41 Severe major depression 370517071 F32.2 Requesting records but also starting form for [facility]. Giving 1mon supply of medication . No SI Irritable bowel syndrome 18775534 K58.9 Needs to see GI for fu. 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 Needs infl uenza immunization 578347630 Z23 Health Concerns Section Related Observation LastModified by Organization Detai ls LastModified Time None Recorded Concern Status LastModified by Organization Details LastModified Time None Recorded Advance Directives Directive N: Payers Encounter Date Sequence Insurance Name Policy Number Policy Lin Covered Member ID Lin Member ID Guarantor Name 05/27/2019 1 [facility] (MEDICAID HMO) Viomil Delaney [id number] Viomil Dinzey Delaney 07/29/2019 1 [facility] (MEDICAID HMO) Viomil Delaney [id number] Viomil Dinzey Delaney 08/19/2019 1 [facility] (MEDICAID HMO) Viomil Delaney [id number] Viomil Dinzey Delaney Notes Date Note Type Note Provider Name and Address Organization Details Recorded Time 9 text/html Abdominal PainReported bypatient.Location:LLQ; RLQ Quality:cramping Onset/Timing:wax/wane Modifying Factors:nothing gives relief Associated Symptoms:diarrhea;sami pationNotes:Hospitalized 2weeks [facility] at [facility] for lower abdominal and low back pain. Had MRIs and CT scan. Had colonoscopy done yesterday found hemorrhoid and had biopsyComprehensive Well AdultReported bypatient.Diet and Nutrition:high caloric intake;high carbohydrate meals; discussed diet improvement; shifting diet now Fracture Risk:no recent explained fracture;history of fractures Physical Activity:recent increase in physical activity; yoga Depression Risk:never feels sad, empty, or tearful; no thoughts of suicide;history of mood disorders;history of depression Orientation:no disorientation to time; no disorientation to date; no disorientation to place Concentration and Memory:no decreased concentrating ability Speech/Motor difficulties:no speech difficulties Hearing:no loss of hearing Vision:no vision problems Activities of Daily Living:able to bathe with limited or no assistance; able to contol urination and bowels; able to dress with limited or no assistance; able to feed self with limited or no assistance; able to get out of chair or bed with limited or no assistance; able to groom with limited or no assistance; able to toilet with limited or no assistance Instrumental Activities of Daily Living:able to do house work with limited or no assistance; able to grocery shop with limited or no assistance; able to manage medications with limited or no assistance; able to manage money with limited or no assistance; able to prepare meals with limited or no assistance; able to use the phone with limited or no assistance Falls Risk Assessment:no frequent falls while walking Home Safety:working smoke/CO detectors; use of seatbeltsNotes: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 @ kids- 4 and 2yoMoodReported bypatient.Affect:normal affect Sleep:normal sleep Appetite:normal Weight:no weight change Mood Variability:not depressed Concentration/Attention: unchanged [place]: ability to enjoy life, sports, activitiesunchanged Energy Levels:unchanged Homicidal:no thoughts to hurt others Suicidality:no sef-mutilation; no thoughts of suicideNotes:[facility] but unable to setup so returnign to [facility]. Had mental breakdown in Aug- Suicidal and depressed. Dx borderline personality, PTSD, depression Hx benzo abuse Has supportive Has form to be completed for [facility] and drivers permit JOSE ALFREDO Ibanez [address] [employer] [facility], [address], [place], [address], [facility] 05/27/2019 09:29:07 9 text/html Abdominal PainReported bypatient.Location:LLQ; RLQ; epigastric Quality:pain;cramping Severity:moderate Onset/Timing:sudden Associated Symptoms:no fever; no chills; no blood in the urine;heartburn;diarrhea ;constipationNotes:Simil ar symptoms to 2 month ago when she had colonscopy and hospitalized- found nothing but did get relief from bentyl. Has not seen GI since. Urination is ok. No fever or aches. Getting heart burn at night Patient offered a student support services director for today's exam. Patient {{accepted student support services director declined student support services director*}}. Labor Supervisor's name Relationship to patient: {{caregiver guardian fam hannah member friend medical record transcriber nurse other office member}} Labor Supervisor present for: {{breast exam breast and pelvic exams breast, pelvic and rectal exams entire physical exam male genital exam male genital and rectal exams pelvic exam pelvic and rectal exams rectal exam}} JOSE ALFREDO Ibanez [address] [facility], [address], [place], [address], [facility] 07/29/2019 13:59:57 9 text/html has had very heavy bleeding for last 3 days with clots - 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 had to leave work. cramping started last week, was very bad and then when they resolved, period started. has had nexplanon for almost 2 years. has had very irregular periods since had it put in, missing months at a time, sometimes has for a whole month. slightly better this AM, but still passing clots when urinates. feels a little weak, legs are shaking. went through a pack of 18 pads yesterday, only 3 pads today. Niru Banks MD [address] [facility], [address], [place], [address], [place] - Sarah Sung [place] 08/19/2019 13:55:14 OBGyn Episode No OBEpisode recorded.
--- OUTSIDE RECORDS SUMMARY | 2024-12-30 08:58 | XMS_ITS | Data Portability ---
Author Organization [facility] -[place], Admin Office Address [address] [place] [id number] Care Team Providers Care Can Doffer Name Role Phone [facility] Psychiatrist Assessment No assessment recorded. Plan of Treatment Reminders Order Date Submit Date Provider Last Modified By Organization Details Last Modified Time Details Appointments None recorded. Lab rapid SARS CoV 2 Ag, QL IA, respirator y specimen 2020 021 [email or web address] Not available 18:56:26 bacterial vaginosis + vaginitis panel, vaginal 2020 021 [facility], [address] [place], [address], 17:05:50 culture, urine 2020 021 [facility], [address] [facility], [place], [address], 16:07:15 urinalysis , complete 2020 021 [facility], [address], [place], [address], 17:05:51 urinalysis , dipstick 2020 021 [email or web address] Not available 16:14:10 lipid panel, serum 2020 021 [email or web address] [facility], [address] [place], [address], 14:25:16 CMP, serum or plasma 2020 021 [email or web address] [facility], [address] [place], [address], 14:25:17 vitamin D, 25-hydroxy , total, serum 2020 021 [email or web address] [facility], [address] [place], [address], 14:25:17 HbA1c (hemoglobi n A1c), blood 2020 021 [email or web address] [facility], [address] [place], [address], 14:25:17 TSH + free T4, serum 2020 021 [email or web address] [facility], [address] [place], [address], 14:25:17 CBC w/ auto diff 2020 021 [email or web address] [facility], [address] [place], [address], 14:25:17 Referral None recorded. Procedures None recorded. Surgeries None recorded. Imaging None recorded. Medication Orders Bactrim DS 800 mg-160 mg tablet 2020 021 [id number], [address], [place], [phone], 10:33:45 Diflucan 150 mg tablet 2020 021 [facility] #[id number], [address], [place], [phone], 10:34:10 Flagyl 500 mg tablet 2020 021 [facility] #60188, [address], [place], [phone], 10:33:57 aripiprazo le 5 mg tablet 2020 021 [facility] #15111, [address], [place], [phone], 22:07:51 Zithromax 500 mg tablet 2020 021 [email or web address] Not available 17:02:27 Patient TargetsNo targets recorded. Patient Instructions Encounter Date Encounter Id Patient Instructions Last Modified By Organization Details Last Modified Time 11/29/[id number] Patient was counseled on COVID-19 prevention. Proper hand washing or sanitizing when not able was reviewed, the symptoms that can be COVID were reviewed including fever, loss of taste and/or smell, headache, body pains, stomach issues, cough, and sore throat, maintaining a 6 foot distance when possible, wearing a mask and the proper way to wear it, the differences between different types of masks including homemade, N95, and surgical paper masks,not touching your face (eyes, nose, and mouth), and proper cleaning to keep possible COVID germs from contaminating spaces. [email or web address] Not available 12/10/2020 18:57:20 01/24/2021 [id number] risk reduction counseling* Not available 02/05/2021 23:09:10 papers completed Follow up for AWV Blood work due- will order [email or web address] Not available 01/24/2021 22:12:03 02/07/2021 [id number] learning about control [email or web address] Not available 02/07/2021 16:28:10 surgical trays* Not available 04/07/2021 16:49:36 Reason for Referral None Reported. Results Created Date Observation Date Name Description Value Unit Range Abnormal Flag Note LastModifiedBy Organization Detail LastModifiedTime 01/24/20 21 01/24/2021 urina lysis , dipst ick Leukocytes large 500 Not Available [facility] [employer] [address], [place], [address], 01/24/2021 16:10:39 01/24/20 21 01/24/2021 urina lysis , dipst ick Nitrite positi ve Not Available [facility] [employer] [address], [place], [address], 01/24/2021 16:10:39 01/24/20 21 01/24/2021 urina lysis , dipst ick Protein 30+ Not Available [facility] [employer] [address], [place], [address], 01/24/2021 16:10:39 01/24/20 21 01/24/2021 urina lysis , dipst ick Specific [place] 1.010 Not Available [facility] [employer] [address], [place], [address], 01/24/2021 16:10:39 01/24/20 21 01/26/2021 bacte rial vagin osis + vagin itis panel , vagin al atopobium vaginae Modera te - 1 score Not Available [facility] ([facility]) [address] [place], [address], 01/26/2021 17:05:50 01/24/20 21 01/26/2021 bacte rial vagin osis + vagin itis panel , vagin al bvab 2 Modera te - 1 score Not Available [facility] ([facility]) [address] [place], [address], 01/26/2021 17:05:50 01/24/20 21 01/26/2021 bacte rial vagin osis + vagin itis panel , vagin al megasphaera 1 Low - 0 score Calcu late total score by tiera yanez the 3 indiv idual bacte rial vagin osis (BV) marke r score s toget her. Total score is inter prete d as follo ws: Total score 0-1: Indic ates the absen ce of BV. Total score 2: Indet ermin ate for BV. Addit ional clini ronnie data shoul d be evalu ated to estab sixto a diagn osis. Total score 3-6: Indic ates the prese nce of BV. This test was devel oped and its perfo rmanc e joana cteri stics deter mined by [facility]. It has not been clear ed or appro indy by the Food and Drug Admin istra tion. Not Available [facility] ([facility]) [address] [place], [address], 01/26/2021 17:05:50 01/24/20 21 01/26/2021 bacte rial vagin osis + vagin itis panel , vagin al manish albicans, FLORA Negati ve negati ve Not Available [facility] ([facility]) [address] [place], [address], 01/26/2021 17:05:50 01/24/20 21 01/26/2021 bacte rial vagin osis + vagin itis panel , vagin al manish glabrata, FLORA Negati ve negati ve Not Available [facility] ([facility]) [address] [place], [address], 01/26/2021 17:05:50 01/24/20 21 01/26/2021 bacte rial vagin osis + vagin itis panel , vagin al trich vag by FLORA Negati ve negati ve Not Available [facility] ([facility]) [address] [place], [address], 01/26/2021 17:05:50 01/24/20 21 01/26/2021 bacte rial vagin osis + vagin itis panel , vagin al chlamydia trachomatis, LFORA Positi ve negati ve abnormal Not Available [facility] ([facility]) [address] [facility], [place], [address], 01/26/2021 17:05:50 01/24/20 21 01/26/2021 bacte rial vagin osis + vagin itis panel , vagin al neisseria gonorrhoeae, FLORA Negati ve negati ve Not Available [facility] ([facility]) [address] [facility], [place], [address], 01/26/2021 17:05:50 01/24/20 21 01/25/2021 urina lysis , compl ete specific gravity TNP Test not perfo rmed. No urine speci men recei indy. Not Available [facility] ([facility]) [address] [facility], [place], [address], 01/26/2021 17:05:51 01/24/20 21 01/25/2021 urina lysis , compl ete pH TNP Test not perfo rmed Not Available [facility] ([facility]) [address] [facility], [place], [address], 01/26/2021 17:05:51 01/24/20 21 01/25/2021 urina lysis , compl ete urine-color CHRONIC CONDITION NURSE Not Available [facility] ([facility]) [address] [facility], [place], [address], 01/26/2021 17:05:51 01/24/20 21 01/25/2021 urina lysis , compl ete appearance CHRONIC CONDITION NURSE Not Available [facility] ([facility]) [address] [facility], [place], [address], 01/26/2021 17:05:51 01/24/20 21 01/25/2021 urina lysis , compl ete WBC esterase CHRONIC CONDITION NURSE Not Available [facility] ([facility]) [address] [facility], [place], [address], 01/26/2021 17:05:51 01/24/20 21 01/25/2021 urina lysis , compl ete protein TNP Test not perfo rmed Not Available [facility] ([facility]) [address] [place], [address], 01/26/2021 17:05:51 01/24/20 21 01/25/2021 urina lysis , compl ete glucose TNP Test not perfo rmed Not Available [facility] ([facility]) [address] [place], [address], 01/26/2021 17:05:51 01/24/20 21 01/25/2021 urina lysis , compl ete ketones TNP Test not perfo rmed Not Available [facility] ([facility]) [address] [place], [address], 01/26/2021 17:05:51 01/24/20 21 01/25/2021 urina lysis , compl ete occult blood CHRONIC CONDITION NURSE Not Available [facility] ([facility]) [address] [place], [address], 01/26/2021 17:05:51 01/24/20 21 01/25/2021 urina lysis , compl ete bilirubin CHRONIC CONDITION NURSE Not Available [facility] ([facility]) [address] [place], [address], 01/26/2021 17:05:51 01/24/20 21 01/25/2021 urina lysis , compl ete urobilinogen ,semi-qn CHRONIC CONDITION NURSE Not Available [facility] ([facility]) [address] [place], [address], 01/26/2021 17:05:51 01/24/20 21 01/25/2021 urina lysis , compl ete nitrite, urine CHRONIC CONDITION NURSE Not Available [facility] ([facility]) [address] [place], [address], 01/26/2021 17:05:51 01/24/20 21 01/25/2021 urina lysis , compl ete microscopic examination CHRONIC CONDITION NURSE Not Available [facility] ([facility]) [address] [facility], [place], [address], 01/26/2021 17:05:51 01/24/20 21 01/25/[address] probl em request problem TNP Test not perfo rmed. No urine speci men recei indy. TEST: 05217 [id number] Urina lysis , Routi ne Not Available [facility] ([facility]) [address] [facility], [place], [address], 01/26/2021 17:05:51 01/24/20 21 01/28/2021 cultu re, urine urine culture, routine Final report abnormal Not Available [facility] ([facility]) [address] [facility], [place], [address], 01/28/2021 16:07:15 01/24/20 21 01/28/2021 cultu re, urine result 1 Escher ichia coli abnormal Great er than 100,0 00 colon y formi ng units per mL Cefaz maia <=4 ug/mL Cefaz maia with an YANCY <=16 predi cts susce ptibi lity to the oral agent s cefac anastasiya, cefdi grace, cefpo doxim e, cefpr ozil, cefur oxime , cepha lexin , and lorac arbef when used for thera py of uncom plica new urina ry tract infec tions due to E. coli, Klebs iella pneum oniae , and Prote us mirab ilis. This speci men was submi tted in a steri le cup which requi res refri gerat ed tempe ratur es to maint ain the organ isms witho ut exces sive growt h in trans port. [facility] recom mends the use of the urine cultu re trans port devic e (avai lable from your profe kacie al servi jess repre senta tive) for clean catch urine speci mens. Not Available [facility] ([facility]) [address] [facility], [place], [address], 01/28/2021 16:07:15 01/24/20 21 01/28/2021 cultu re, urine antimicrobia l susceptibili ty Commen t S = Susce ptibl e; I = Inter media te; R = Resis tant P = Posit thais; N = Negat thais MICS are expre ssed in micro grams per mL Antib iotic RSLT# 1 RSLT# 2 RSLT# 3 RSLT# 4 Amoxi cilli n/Cla vulan ic Acid S Ampic illin R Cefep maribel S Ceftr iaxon e S Cefur oxime S Cipro floxa chaitanya S Ertap enem S Genta micin S Imipe nem S Levof loxac in S Merop enem S Nitro furan toin S Piper acill in/Ta zobac ortega S Tetra cycli ne S Tobra mycin S Trime thopr im/Ortiz lfa S Not Available [facility] ([facility]) [address] [facility], [place], [address], 01/28/2021 16:07:15 03/05/20 21 05/02/2020 imagi ng/di agnos tic resul t No observ ation record ed. [email or web address] Not Available 04/2021 16:47:26 Result Notes None recorded. Problems Name Problem SNOMED Code Status Onset Date Resolution Date Notes Provider Name and Address Organization Details Recorded Time Family history of cancer of colon 482148114 Active 2020 Rena Lundberg NP [address], [place], [address], [facility] 1 22:06:13 Family history of malignant neoplasm of brain 425005952 Active 2020 Rena Lundberg NP [address], [place], [address], [facility] 1 22:06:14 Body mass index 25-29 - overweight 534619489 Active 2020 Rena Lundberg NP [address], [place], [address], [facility] /[place] 1 22:06:16 Overweight 333115251 Active 2020 Rena Lundberg NP [address], [place], [address], [facility] /[place] 1 22:06:18 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 258728150 Active 2020 Rena Lundberg NP [address], [place], [address], [facility] /[place] 1 22:06:19 Generalized anxiety disorder 53095580 Active 2020 Rena Lundberg NP [address], [place], [address], [facility] /[place] 1 22:11:15 Under care of psychiatrist 605023386 Active 2020 Rena Lundberg NP [address], [place], [address], [facility]/[place] 1 22:11:18 Medication review done by doctor 389428270 Active 2020 Rena Lundberg NP [address], [place], [address], [facility] /[place] 1 22:11:20 Renewal of prescription Active 2020 Rena Lundberg NP [address], [place], [address], [facility] /[place] 1 22:11:21 Under care of neurologist 950808493 Active 2020 Rena Lundberg NP [address], [place], [address], [facility] 1 22:11:23 Borderline personality disorder 79380909 Active 2020 Rena Lundberg NP [address], [place], [address], [facility] 22:12:50 Problem Notes None recorded. Procedures Surgical History Date Name Laterality Status Provider Name and Address Organization Details Recorded Time Control Implant Removal completed Lexis Ndiaye MD [address], [place], [address], [facility] [facility] 02/07/2021 17:50:40 0 Control Implant Removal cancelled Marlenebridget Yañez [facility]/[place] 10/03/2020 22:31:06 0 Control Implant Removal cancelled Marlene Yañez [facility] 09/06/2020 10:09:14 0 Date of Last Pap Smear completed Dione Foley [facility] 03/05/2021 15:36:10 Imaging Results Imaging Date Name Status LastModified by Organ atpending sale to [facility] Details LastModified Time 05/02/2020 imaging/diag nostic result completed [email or web address] Information not available 03/05/2021 16:47:26 Procedure Notes None recorded. Medical Equipment None Reported. Allergies No known drug allergies Medications Name Sig Start Date Stop Date Status Note LastModified by Organization Details LastModified Time cyclobenzap rine 10 mg tablet TAKE 1 TABLET BY MOUTH THREE TIMES DAILY NEEDED FOR MUSCLE SPASM active Not Available Not Available No t Available gabapentin 600 mg tablet TK 1 T PO TID 01/24 completed Not Available Not Available Not Available ibuprofen 800 mg tablet TAKE 1 TABLET BY MOUTH EVERY 8 HOURS NEEDED FOR PAIN active Not Available Not Available No t Available phenazopyri dine 200 mg tablet TK 1 T PO TID FOR 2 DAYS 01/24 completed Not Available Not Available Not Available ondansetron HCl 4 mg tablet TK 1 T PO Q 8 H PRF NAUSEA OR VOM 01/24 completed Not Available Not Available Not Available Diflucan 150 mg tablet Take 1 tablet by oral route for 1 day. 01/29 completed Not Available Not Available Not Available omeprazole 40 mg capsule,del ayed release TK ONE C PO QD 01/24 completed Not Available Not Available Not Available gabapentin 800 mg tablet TAKE 1 TABLET BY MOUTH THREE TIMES DAILY active Not Available Not Available No t Available Flagyl 500 mg tablet Take 1 tablet twice a day by oral route with meals for 7 days. 01/29 completed Not Available Not Available Not Available ibuprofen 400 mg tablet TAKE 1 TABLET BY MOUTH EVERY 6 HOURS NEEDED FOR PAIN 01/29 completed Not Available Not Available Not Available gabapentin 300 mg capsule TK 1 C PO QD 01/24 completed Not Available Not Available Not Available ibuprofen 600 mg tablet TK 1 T PO TID FOR 7 DAYS 01/24 completed Not Available Not Available Not Available ondansetron 4 mg disintegrat ing tablet DIS 1 T ON THE TONGUE Q 8 H PRF NAUSEA OR VOM 01/24 completed Not Available Not Available Not Available Bactrim DS 800 mg-160 mg tablet Take 1 tablet every 12 hours by oral route for 3 days. 01/29 completed Not Available Not Available Not Available Zithromax 500 mg tablet Take 1 tablet every day by oral route for 1 day. 2020 active Not Available Not Available Not Avai lable aripiprazol e 5 mg tablet TAKE 1 TABLET BY MOUTH EVERY DAY AT BEDTIME active Not Available Not Available No t Available bupropion HCl XL 150 mg 24 hr tablet, extended release TAKE 1 TABLET BY MOUTH EVERY DAY IN THE MORNING active Not Available Not Available No t Available nitrofurant oin monohydrate /macrocryst als 100 mg capsule TK ONE C PO BID FOR 5 DAYS 01/24 completed Not Available Not Available Not Available cholecalcif ashlyn (vitamin D3) 1,250 mcg (50,000 unit) capsule TAKE 1 CAPSULE BY MOUTH WEEKLY DIRECTED 01/24 completed Not Available Not Available Not Available Nexplanon 68 mg subdermal implant 2019 active Not Available Not Available Not Bao wes Cordova 150 mcg-35 mcg/24 hr transdermal patch APPLY 1 PATCH TO SKIN EVERY WEEK DIRECTED active Not Available Not Available No t Available Vitals Date Recorded Body height Provider Name an d Address Organization Details Last Updated DateTime 12/10/2020 154.94 cm [facility] 12/10/2020 18:50:33 Date Recorded Respiratory rate Provider Name a nd Address Organization Details Last Updated DateTime 12/10/2020 99 /min [facility]/[place] 12/10/2020 18:50:46 Date Recorded Heart rate Provider Name an d Address Organization Details Last Updated DateTime 12/10/2020 88 /min [facility] 12/10/2020 18:50:52 Date Recorded Body temperature Provider Name a nd Address Organization Details Last Updated DateTime 12/10/2020 97.3 [degF] [facility] 12/10/2020 18:50:59 Date Recorded Body height Provider Name an d Address Organization Details Last Updated DateTime 01/24/2021 154.94 cm [facility] 01/24/2021 13:24:52 Date Recorded Body mass index (BMI) Body weight Provider Name and Address Organization Details Last Updated DateTime 01/24/2021 28.7 kg/m2 45789.04 g [facility] 01/24/2021 13:25:56 Date Recorded Respiratory rate Provider Name a nd Address Organization Details Last Updated DateTime 01/24/2021 16 /min [facility] 01/24/2021 13:26:04 Date Recorded Body temperature Provider Name a nd Address Organization Details Last Updated DateTime 01/24/2021 98.3 [degF] [facility] 01/24/2021 13:27:08 Date Recorded Heart rate Provider Name an d Address Organization Details Last Updated DateTime 01/24/2021 92 /min [facility] 01/24/2021 13:27:23 Date Recorded Oxygen saturation Oxygen saturation in Arterial blood by Pulse oximetry Provider Name and Address Organization Details Last Updated DateTime 01/24/2021 98 % 98 % Marko [facility]/[place]/ [place] 01/24/2021 13:27:26 Date Recorded Body height Provider Name an d Address Organization Details Last Updated DateTime 01/24/2021 154.94 cm [facility] 01/24/2021 15:14:47 Date Recorded Body temperature Provider Name a nd Address Organization Details Last Updated DateTime 01/24/2021 97.5 [degF] [facility]/[place] 01/24/2021 15:14:52 Date Recorded Body mass index (BMI) Body weight Provider Name and Address Organization Details Last Updated DateTime 01/24/2021 29.1 kg/m2 28026.22 g [facility] 01/24/2021 15:15:53 Date Recorded Body height Provider Name an d Address Organization Details Last Updated DateTime 02/07/2021 154.94 cm [facility]/[place] 02/07/2021 14:43:01 Date Recorded Body mass index (BMI) Body weight Provider Name and Address Organization Details Last Updated DateTime 02/07/2021 28.5 kg/m2 10195.45 g [facility] 02/07/2021 14:43:57 Date Recorded Body temperature Provider Name a nd Address Organization Details Last Updated DateTime 02/07/2021 97.7 [degF] [facility] 02/07/2021 14:44:01 Date Recorded Systolic blood pressure Diastolic blood pressure Provider Name and Address Organization Details Last Updated DateTime 12/10/2020 114 mm[Hg] 79 mm[Hg] Catherine Ramirez [facility]/ [place] 12/10/2020 18:51:09 Date Recorded Systolic blood pressure Diastolic blood pressure Provider Name and Address Organization Details Last Updated DateTime 01/24/2021 98 mm[Hg] 50 mm[Hg] Marko ron [facility]/ [place] 01/24/2021 13:29:33 Date Recorded Systolic blood pressure Diastolic blood pressure Provider Name and Address Organization Details Last Updated DateTime 01/24/2021 92 mm[Hg] 57 mm[Hg] Marcella [facility]/ [place] 01/24/2021 15:15:59 Date Recorded Systolic blood pressure Diastolic blood pressure Provider Name and Address Organization Details Last Updated DateTime 02/07/2021 100 mm[Hg] 74 mm[Hg] [facility]/ [place] 02/07/2021 14:44:12 Social History Question Answer Notes LastModified by Organizat ion Details LastModified Time Tobacco Smoking Status Never Smoker Ally Avinash swain [facility] /[place] 11/28/2020 14:08:24 What Is Your Level Of Alcohol Consumption? Occasional Information not available 01/29/2021 What Is Your Level Of Caffeine Consumption? Occasional Soda Information not available 01/29/2021 How Much Tobacco Do You Chew? None Information not available 01/29/2021 Do You Or Have You Ever Used E-cigarettes Or Vape? Never Used Electronic Cigarettes [id number] Information not available 10/02/2020 What Is Your Occupation? [employer] Information not available 01/29/2021 Live Alone Or With Others? With Others Information not available 01/29/2021 What Was The Date Of Your Most Recent Tobacco Screening? 02/07/2021 [email or web address] Information not available 02/07/2021 How Many Children Do You Have? 2 Information not available 01/29/2021 Do You Use Protection During Sex? Usually Information not available 01/29/2021 What Is Your Relationship Status? Single Information not available 01/29/2021 Are You Sexually Active? Yes Information not available 01/29/2021 Do You Or Have You Ever Used Smokeless Tobacco? Never Used Smokeless Tobacco Information not available 11/28/2020 How Much Tobacco Do You Smoke? No Information not available 01/24/2021 How Many Years Have You Smoked Tobacco? 0 Information not available 01/24/2021 Sex: Female Functional Status None recorded. Mental Status None recorded. Family History Relationship Description Onset Age of this Age Resolved Age Notes LastModified by Organization Details LastModified Time Mother Malignant tumor of colon [id number] Not available 10:38:57 Maternal Aunt Malignant neoplasm of brain [id number] Not available 10:39:19 Medical History Condition Response Diabetes N Autoimmune disease N Other Y Stroke (CVA) N Cancer, other N Anemia N Kidney Disease/Disorder N Liver Disease/Disorder N Gynecological History Statement/Question Response Abnormal Pap N Flow Moderate Frequency of Cycle (Q days) 28 Sexually Active? Y Menses Monthly Y STIs/STDs Yes Date of Last Pap Smear 04/25/2020 Duration of Flow (days) 5 Current Control Method Implant Age at Menarche 13 LMP Approximate Obstetrics History GPAL:G 2 P 2 0 0 2 Type Value Multiple Births 0 Full Term 2 Induced 0 Spontaneous 0 Premature 0 Living 2 Ectopics 0 Total 2 Past Encounters Encounter ID Performer Location Encounter Start Date Encounter Closed Date Diagnosis/Indication Diagnosis SNOMED-CT Code Diagnosis ICD10 Code Diagnosis Note [id number] Marlene Yañez [place] [employer] [address] [facility],2nd [place] [address] 09/04/2020 10:54:48 09/04/2020 12:16:25 Acute vaginitis 40230774 N76.0 Rx Flagyl 500mg BID x 7 days, reinforced no alcohol within 48h of final dose. Advised condom use during antibiotic course. Encouraged proper vaginal hygiene practices (no perfumed soaps, douching, pH feminine hygiene products, etc), as well as, vaginal probiotic. Instructed if persistent signs or symptoms, notify provider. Venereal d isease screening 965188501 Z11.3 Safe sex practices, condom use reinforced . Surveillan ce of contraception 211212341 Z30.45 [id number] Rena Lundberg NP _[place] [facility] [address] [place] [address] 11/28/2020 13:45:18 11/29/2020 11:31:00 Borderline personality disorder 92897120 F60.3 Patient seeing Psych on 12/14/2020 Suspected COVID-19 36123 4004 Z20.828 Testing for visitation to hospital setting [id number] william parker [place] [address] [place] [address] 11/29/2020 10:16:13 12/10/2020 19:00:21 Exposure to SARS-CoV-2 532172978 Z20.828 [id number] Rena Lundberg NP [place] [facility] [address] [place] [address] 01/24/2021 13:08:51 01/24/2021 15:36:16 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 433751581 G60.0 completed paper work Overweight 322171517 E66 .3 Body mass index 25-29 - overweight 287834768 Z68.28 Family his tory of malignant neoplasm of brain 530655671 Z80.8 Family his tory of cancer of colon 882760033 Z80.0 Generalize d anxiety disorder 21401834 F41.1 Under care of psychiatrist 546248940 Z76.89 Medication review done by doctor 734396913 Z76.89 Renewal of prescription 523015926 Z76.0 Under care of neurologist 660818540 Z76.89 Endocrine/ metabolic screening 268391975 Z13.228 Borderline personality disorder 46070751 F60.3 Patient seeing Psych on 12/14/2020 [id number] Lexis Ndiaye MD [place] [facility] [employer] [employer] [address] [address] 01/24/2021 14:54:03 01/25/2021 09:34:08 Vaginal odor 008102440 N89.8 Increased frequency of urination 321552147 R35.0 Surveillan ce of subcutaneous contraceptive implant 070035121 Z30.46 Pt was counselled about removal by CNM but never return. Pt was also given the patch to initiate assuming she would return. Pt did not start and may start with next menses. Acute urin kaiser tract infection 930632939 N39.0 Admits to getting yeast infection with antibiotic use. [id number] Marlene Yañez _[place] [employer] [address] [facility],2[address] [place] [address] 01/29/2021 10:13:59 01/29/2021 10:49:11 Patient informed - test result 674803133 Z71.2 Chlamydial infection 105 874814 A74.9 - Reviewed culture results with patient. Possible false negative in Aug 2020 or new infection - Must abstain from intercours e at least 7 days after partner is treated. Reinforced anyone who they've been in sexually contact with in the past 90 days needs to be treated as well. - Discussed safe sex practices, condom use reinforced . Advised condom use until negative re-culture . - RTO 2-3 months for re-test. [id number] Lexis Ndiaye MD VM_[place] [facility] [employer] [address] [facility],[address] [place] [address] 02/07/2021 14:09:22 02/07/2021 17:03:45 Chlamydial infection 751072102 A74.9 Contracept ion care management 720453407 Z30.9 Pt planning to start the patch as per prior discussion s. Removal of subcutaneous contraceptive 779112243 Z30.46 Health Concerns Section Related Observation LastModified by Organization Detai ls LastModified Time None Recorded Concern Status LastModified by Organization Details LastModified Time None Recorded Advance Directives Directive None Recorded Payers Encounter Date Sequence Insurance Name Policy Number Policy Lin Covered Member ID Lin Member ID Guarantor Name 11/29/2020 1 [facility] [employer] (MEDICAID HMO) [id number] Viomil Delaney [id number] Viomil Delaney 11/29/2020 2 [facility] [employer] Viomil Delaney [id number] Viomil Delaney 01/24/2021 1 [facility] [employer] (MEDICAID HMO) [id number] Viomil Delaney [id number] Viomil Delaney 01/24/2021 2 [place] [employer] Viomil Delaney [id number] Viomil Delaney 01/24/2021 1 [facility] [employer] (MEDICAID HMO) [id number] Viomil Delaney [id number] Viomil Delaney 01/24/2021 2 [place] [employer] Viomil Delaney [id number] Viomil Delaney 01/29/2021 1 [facility] [employer] (MEDICAID HMO) [id number] Viomil Delaney [id number] Viomil Delaney 01/29/2021 2 [place] [employer] Viomil Delaney [id number] Viomil Delaney 02/07/2021 1 [facility] [employer] (MEDICAID HMO) [id number] Viomil Delaney [id number] Viomil Delaney 02/07/2021 2 [place] [employer] Viomil Delaney [id number] Viomil Delaney Notes Date Note Type Note Provider Name and Address Organization Details Recorded Time 01/24/2021 text/html Cheyanne is a 30 y o female who presents to the office for follow up for CMT and to request disability papers be completed. 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 She is under the care of Dr. Cueto. for the CMT. Her primary symptoms are burning, tingling, and numbness in the arms and legs. This leads to weakness and spontaneous falling or dropping of things. Rena Lundberg, CHRONIC CONDITION NURSE [address] [facility],[address]LO[address], [place], [address], [facility] 01/24/2021 22:14:20 01/24/2021 text/html Vaginal odor 2 w ks ago and then 4 days ago urine strong odor/urinary frequency. Denies otc meds. Last intercourse 1 week. No change in diet or new soaps/detergents. Extensive pt education about vaginitis/uti etc and all questions were answered. Pt also admits to using condom 100% and having a nexplanon that is 2-3 months overdue to be removed. Pt had a conversation with Marlene POLLARD in regards to removal and initiating the patch.....however pt did not f/u but plans to now. Lexis Ndiaye MD [address], [place], [address], [facility]/[place] 01/24/2021 16:53:31 01/29/2021 text/html Today's visit wa s captured via audio and video in [place]. Admits to new partner since last swab; unknown STD status of partner prior to engaging in intercourse. Uses condoms most of the time, but has had unprotected sex. UTI symptoms resolved - last dose today. Marlene swain, [facility]/[place] 01/29/2021 10:44:33 02/07/2021 text/html Pt now for nexplanon removal but upon speaking to patient she never received treatment for chlamydia. S/P telehealth but states no medicine at the pharmacy. Boyfriend was tested but not treated and thus agree to be treated via our office. Additional education done to reiterate her prior conversation. Hx of UTI which was treated and now resolved.Consent for nexplanon removal obtained and no new questions. Lexis Ndiaye MD [address], [place], [address], [facility]/[place] 02/07/2021 17:59:57 OBGyn Episode No OBEpisode recorded.
[2024-12-30 09:20] LABS: MANUAL DIFF FLAG NO
[2024-12-30 09:22] LABS: Basophils Percent Auto 0.6 % (0-2); Eosinophils Absolute Auto 0.1 X10*3/uL (0.0-0.4); Eosinophils Percent Auto 1.3 % (0-4); Hematocrit 37.4 % (37.0-47.0); Hemoglobin 12.5 g/dl (12.0-16.0); Imm Gran Abs Auto 0.02 X10*3/uL (0.00-0.03); Imm Gran Pct Auto 0.3 % (0.0-0.4); Lymphocytes Absolute Auto 1.4 X10*3/uL (1.2-4.9); Lymphocytes Percent Auto 21.2 % (20-40); Mean Corpuscular HGB Conc 33.4 g/dl (31.0-35.0); Mean Corpuscular Hemoglobin 28.4 pg (27.0-33.0); Mean Platelet Volume 9.3 fL (9.4-12.3); Monocytes Absolute Auto 0.5 X10*3/uL (0.1-1.2); Monocytes Percent Auto 7.5 % (2-11); Neutrophils Absolute Auto 4.4 x10*3/uL (2.0-8.3); Neutrophils Percent Auto 69.1 % (45-73); Platelet Count 372 X10*3/uL (160-400); Red Cell Distribution Width 13.6 % (11.0-16.0); White Blood Count 6.4 X10*3/uL (4.8-10.8)
[2024-12-30] MEDS: HYDROmorphone HCl 0.5 MG/0.5 ML SYRINGE IVPUSH (09:22)
[2024-12-30] MEDS: ondansetron HCL 4 MG/2 ML VIAL IVPUSH (09:22)
[2024-12-30 09:32] LABS: Influenza A PCR NEGATIVE (Negative); Influenza B PCR NEGATIVE (Negative); Resp Syncy Virus RNA Qual PCR NEGATIVE (Negative); SARS COV2 PCR INHOUSE NEGATIVE (Negative)
[2024-12-30 10:03] LABS: Alanine Aminotransferase 20 U/L (0-31); Albumin Level 3.8 g/dL (3.5-5.0); Alkaline Phosphatase 87 U/L (39-117); Anion Gap 13 (12-20); Aspartate Amino Transferase 23 U/L (5-31); Bilirubin Total 0.7 mg/dL (0.0-1.0); Blood Urea Nitrogen 8 mg/dL (9-16); C Reactive Protein 0.46 mg/dL (< or = 0.50); Calcium 9.4 mg/dL (8.4-10.2); Carbon Dioxide 23 mmol/L (22-29); Chloride 107 mmol/L (96-108); Creatinine Clr Calc Pharmacy 125.6; Estimated Glomerular Filt Rate > 60; Glucose Random 110 mg/dL (60-115); HCG Quantitative < 2 mIU/mL; Magnesium 2.1 mg/dL (1.6-2.6); Sodium 139 mmol/L (135-145); Total Protein 7.6 g/dL (6.5-8.0)
[2024-12-30] MEDS: diazePAM 10 MG/2 ML CARTRIDGE 2.5 MG IVPUSH (11:09)
[2024-12-30] MEDS: Acetaminophen 1,000 MG/100 ML PIGGYBACK 400 MG IV (11:09)
[2024-12-30] MEDS: Ketorolac Tromethamine 15 MG/ML VIAL IVPUSH (11:10)
[2024-12-30] MEDS: Morphine Sulfate 4 MG/ML CARTRIDGE IVPUSH (11:10)
== END 2024-12-30 12:57 | disposition home or self-care (01) ==
PROVIDERS: Physician Assistant Medical; Emergency Provider Emergency Medicine; PCP Internal Medicine
DX: M79.10 Myalgia, unspecified site (principal); Z03.818 Encounter for observation for suspected exposure to other biological agents ruled out; Z79.899 Other long term (current) drug therapy; Z87.891 Personal history of nicotine dependence
CPT/HCPCS: 0241U; 36415; 80053; 83735; 84702; 85025; 86140; 96365; 96375; 99284; J0131; J1171; J1885; J2270; J2405; J3360

== ENCOUNTER 2025-03-13 04:14 | Emergency (ER) | payer MEDICAID, SELFPAY ==
[2025-03-13 04:22] VITALS: BP 120/80; PULSE 88; RESP 18; TEMP 37.4; O2SAT 97; BMI 43.4
[2025-03-13 04:49] LABS: Basophils Percent Auto 0.5 % (0-2); Eosinophils Absolute Auto 0.3 X10*3/uL (0.0-0.4); Eosinophils Percent Auto 2.9 % (0-4); Hematocrit 35.9 % (37.0-47.0); Imm Gran Abs Auto 0.02 X10*3/uL (0.00-0.03); Imm Gran Pct Auto 0.2 % (0.0-0.4); Lymphocytes Absolute Auto 2.9 X10*3/uL (1.2-4.9); Lymphocytes Percent Auto 33.1 % (20-40); MANUAL DIFF FLAG NO; Mean Corpuscular HGB Conc 33.4 g/dl (31.0-35.0); Mean Corpuscular Hemoglobin 29.1 pg (27.0-33.0); Mean Corpuscular Volume 87.1 fL (80.0-98.0); Mean Platelet Volume 8.8 fL (9.4-12.3); Monocytes Absolute Auto 0.9 X10*3/uL (0.1-1.2); Monocytes Percent Auto 10.5 % (2-11); Neutrophils Absolute Auto 4.6 x10*3/uL (2.0-8.3); Neutrophils Percent Auto 52.8 % (45-73); Platelet Count 368 X10*3/uL (160-400); Red Blood Count 4.12 X10*6/uL (4.20-5.50); Red Cell Distribution Width 14.2 % (11.0-16.0); White Blood Count 8.7 X10*3/uL (4.8-10.8)
--- OUTSIDE RECORDS SUMMARY | 2025-03-13 04:54 | XMS_ITS | Data Portability ---
Author Organization [facility] [place], Admin Office Address [address] [place] [id number] Care Team Providers Care Information Resources Manager Name Role Phone [facility] Psychiatrist Assessment No assessment recorded. Plan of Treatment Reminders Order Date Submit Date Provider Last Modified By Organization Details Last Modified Time Details Appointments None recorded. Lab bacterial vaginosis + vaginitis panel, vaginal 2020 021 ANITA [facility], [address] [place], [address], 17:05:50 culture, urine 2020 021 ANITA [facility], [address] [place], [address], 16:07:15 urinalysis , complete 2020 021 ANITA [facility], [address] [place], [address], 17:05:51 urinalysis , dipstick 2020 021 [email or web address] Not available 16:14:10 lipid panel, serum 2020 021 [email or web address] [facility], [address] [place], [address], 14:25:16 CMP, serum or plasma 2020 021 [email or web address] [facility], [address] [place], [address], 1 14:25:17 vitamin D, 25-hydroxy , total, serum 2020 021 [email or web address] [facility], [address] [place], [address], 14:25:17 HbA1c (hemoglobi n A1c), blood 2020 021 [email or web address] [facility], [address] [place], [address], 1 14:25:17 TSH + free T4, serum 2020 021 [email or web address] [facility], [address] [place], [address], 14:25:17 CBC w/ auto diff 2020 021 [email or web address] [facility], [address] [place], [address], 14:25:17 rapid SARS CoV 2 Ag, QL IA, respirator y specimen 2020 021 [email or web address] Not available 18:56:26 Referral None recorded. Procedures None recorded. Surgeries None recorded. Imaging None recorded. Medication Orders Zithromax 500 mg tablet 2020 021 [email or web address] Not available 17:02:27 Bactrim DS 800 mg-160 mg tablet 2020 021 [facility]169, [address], [place], [id number], 10:33:45 Diflucan 150 mg tablet 2020 021 [place] [facility] #14153, [address], [place], [id number], 10:34:10 Flagyl 500 mg tablet 2020 021 [facility], [address], [place], [id number], 10:33:57 aripiprazo le 5 mg tablet 2020 021 INTERFACE [facility], [address], [place], [id number], 22:07:51 Patient TargetsNo targets recorded. Patient Instructions Encounter [...] keep possible COVID germs from contaminating spaces. [email or web address] Not available 12/10/2020 18:57:20 01/24/2021 [id number] risk reduction counseling* Not available 02/05/2021 23:09:10 papers completed Follow up for AWV Blood work due- will order [email or web address] Not available 01/24/2021 22:12:03 02/07/2021 [id number] learning about control [email or web address] Not available 02/07/2021 16:28:10 surgical trays* Not available 04/07/2021 16:49:36 Reason for Referral None Reported. Results Created Date Observation Date Name Description Value Unit Range Abnormal Flag Note LastModifiedBy Organization Detail LastModifiedTime 01/24/20 21 01/24/2021 urina lysis , dipst ick Leukocytes large 500 Not Available [facility] [employer] [address], [place], [address], 01/24/2021 16:10:39 01/24/20 21 01/24/2021 urina lysis , dipst ick Nitrite positi ve Not Available [facility] [employer] [facility] [address], [place], [address], 01/24/2021 16:10:39 01/24/20 21 01/24/2021 urina lysis , dipst ick Protein 30+ Not Available [facility] [employer] [address], [place], [address], 01/24/2021 16:10:39 01/24/20 21 01/24/2021 urina lysis , dipst ick Specific Connelly 1.010 Not Available [facility] [employer] [facility] [address], [place], [address], 01/24/2021 16:10:39 01/24/20 21 01/26/2021 bacte rial vagin osis + vagin itis panel , vagin al atopobium vaginae Modera te - 1 score Not Available [facility] ([facility]) [address] [place], [address], 01/26/2021 17:05:50 01/24/20 21 01/26/2021 bacte rial vagin osis + vagin itis panel , vagin al bvab 2 Modera te - 1 score Not Available [facility] ([facility]) [address] [place], [address], 01/26/2021 17:05:50 01/24/20 21 01/26/2021 bacte rial [...] Drug Admin istra tion. Not Available [facility] ([facility]) [address] [place], [address], 01/26/2021 17:05:50 01/24/20 21 01/26/2021 bacte rial vagin osis + vagin itis panel , vagin al manish albicans, FLORA Negati ve negati ve Not Available [facility] ([facility]) [address] [place], [address], 01/26/2021 17:05:50 01/24/20 21 01/26/2021 bacte rial vagin osis + vagin itis panel , vagin al manish glabrata, FLORA Negati ve negati ve Not Available [facility] ([facility]) [address] [place], [address], 01/26/2021 17:05:50 01/24/20 21 01/26/2021 bacte rial vagin osis + vagin itis panel , vagin al trich vag by FLORA Negati ve negati ve Not Available [facility] ([facility]) [address] [place], [address], 01/26/2021 17:05:50 01/24/20 21 01/26/2021 bacte rial vagin osis + vagin itis panel , vagin al chlamydia trachomatis, FLORA Positi ve negati ve abnormal Not Available [facility] ([facility]) [address] [facility], [place], [address], 01/26/2021 17:05:50 01/24/20 21 01/26/2021 bacte rial vagin osis + vagin itis panel , vagin al neisseria gonorrhoeae, FLORA Negati ve negati ve Not Available [facility] ([facility]) [address] [facility], [place], [address], 01/26/2021 17:05:50 01/24/20 21 01/25/2021 urina lysis , compl ete specific gravity TNP Test not perfo rmed. No urine speci men recei indy. Not Available [facility] ([facility]) [address] [facility], [place], [address], 01/26/2021 17:05:51 01/24/20 21 01/25/2021 urina lysis , compl ete pH TNP Test not perfo rmed Not Available [facility] ([facility]) [address] [facility], [place], [address], 01/26/2021 17:05:51 01/24/20 21 01/25/2021 urina lysis , compl ete urine-color CHIROPRACTIC PHYSICIAN Not Available [facility] ([facility]) [address] [facility], [place], [address], 01/26/2021 17:05:51 01/24/20 21 01/25/2021 urina lysis , compl ete appearance CHIROPRACTIC PHYSICIAN Not Available [facility] ([facility]) [address] [facility], [place], [address], 01/26/2021 17:05:51 01/24/20 21 01/25/2021 urina lysis , compl ete WBC esterase CHIROPRACTIC PHYSICIAN Not Available [facility]) [address] [facility], [place], [address], 01/26/2021 17:05:51 01/24/20 21 01/25/2021 urina lysis , compl ete protein TNP Test not perfo rmed Not Available [facility] ([facility]) [address] [place], [address], 01/26/2021 17:05:51 01/24/20 21 01/25/2021 urina lysis , compl ete glucose TNP Test not perfo rmed Not Available [facility] ([facility]) [address] [place], [address], 01/26/2021 17:05:51 01/24/20 21 01/25/2021 urina lysis , compl ete ketones TNP Test not perfo rmed Not Available [facility] ([facility]) [address] [place], [address], 01/26/2021 17:05:51 01/24/20 21 01/25/2021 urina lysis , compl ete occult blood CHIROPRACTIC PHYSICIAN Not Available [facility] ([facility]) [address] [place], [address], 01/26/2021 17:05:51 01/24/20 21 01/25/2021 urina lysis , compl ete bilirubin CHIROPRACTIC PHYSICIAN Not Available [facility] ([facility]) [address] [place], [address], 01/26/2021 17:05:51 01/24/20 21 01/25/2021 urina lysis , compl ete urobilinogen ,semi-qn CHIROPRACTIC PHYSICIAN Not Available [facility] ([facility]) [address] [place], [address], 01/26/2021 17:05:51 01/24/20 21 01/25/2021 urina lysis , compl ete nitrite, urine CHIROPRACTIC PHYSICIAN Not Available [facility] ([facility]) [address] [place], [address], 01/26/2021 17:05:51 01/24/20 21 01/25/2021 urina lysis , compl ete microscopic examination CHIROPRACTIC PHYSICIAN Not Available [facility]) [address] [facility], [place], [address], 01/26/2021 17:05:51 01/24/20 21 01/25/[address] probl em request problem TNP Test not perfo rmed. No urine speci men recei indy. TEST: 91041 [id number] Urina lysis , Routi ne Not Available [facility] ([facility]) [address] [facility], [place], [address], 01/26/2021 17:05:51 01/24/20 21 01/28/2021 cultu re, urine urine culture, routine Final report abnormal Not Available [facility] ([facility]) [address] [facility], [place], [address], 01/28/2021 16:07:15 01/24/20 21 01/28/2021 cultu re, [...] catch urine speci mens. Not Available [facility] ([facility]) [address] [facility], [place], [address], 01/28/2021 16:07:15 01/24/20 21 01/28/2021 cultu re, [...] thopr im/Ortiz lfa S Not Available [facility] ([facility]) [address] [facility], [place], [address], 01/28/2021 16:07:15 03/05/20 21 05/02/2020 imagi ng/di agnos tic resul t No observ ation record ed. [email or web address] Not Available 04/2021 16:47:26 Result Notes None recorded. Problems Name Problem SNOMED Code Status Onset Date Resolution Date Notes Provider Name and Address Organization Details Recorded Time Family history of cancer of colon 741458381 Active 2020 Rena Lundberg NP [address], [place], [address], [facility] 1 22:06:13 Family history of malignant neoplasm of brain 208548103 Active 2020 Rena Lundberg NP [address], [place], [address], [facility] 1 22:06:14 Body mass index 25-29 - overweight 856925743 Active 2020 Rena Lundberg NP [address], [place], [address], [facility] /[place] 1 22:06:16 Overweight 797955090 Active 2020 Rena Lundberg NP [address], [place], [address], [facility] [place] 1 22:06:18 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 Active 2020 Rena Lundberg NP [address], [place], [address], [facility] [place] 1 22:06:19 Generalized anxiety disorder 21081737 Active 2020 Rena Lundberg NP [address], [place], [address], [facility] [place] 1 22:11:15 Under care of psychiatrist 139151378 Active 2020 Rena Lundberg NP [address], [place], [address], [facility]/[place] 1 22:11:18 Medication review done by doctor 987133278 Active 2020 Rena Lundberg NP [address], [place], [address], [facility] [place] 1 22:11:20 Renewal of prescription Active 2020 Rena Lundberg NP [address], [place], [address], [facility] [place] 1 22:11:21 Under care of neurologist 226019394 Active 2020 Rena Lundberg NP [address], [place], [address], [facility] 1 22:11:23 Borderline personality disorder 04870500 Active 2020 Rena Lundberg NP [address], [place], [address], [facility] 22:12:50 Problem Notes None recorded. Procedures Surgical History Date Name Laterality Status Provider Name and Address Organization Details Recorded Time Control Implant Removal completed Lexis Ndiaye MD [address], [place], [address], [facility] [facility] 02/07/2021 17:50:40 0 Control Implant Removal cancelled Marlenebridget Yañez [facility]/[place] 10/03/2020 22:31:06 0 Control Implant Removal cancelled Marlene Yañez [facility]/[place] 09/06/2020 10:09:14 0 Date of Last Pap Smear completed Dione Foley [facility]/[place] 03/05/2021 15:36:10 Imaging Results Imaging Date Name Status LastModified by Organ [facility] Details LastModified Time 05/02/2020 imaging/diag nostic result [...] 2019 active Not Available Not Available Not Avai lable Xulane 150 mcg-35 mcg/24 hr transdermal patch APPLY 1 PATCH TO SKIN EVERY WEEK DIRECTED active Not Available Not Available No t Available Vitals Date Recorded Body height Respiratory rate Heart rate Body temperature Systolic blood pressure Diastolic blood pressure Provider Name and Address Organization Details Last Updated DateTime 0 154.94 cm 99 /min 88 /min 97.3 [degF] 114 mm[Hg] 79 mm[Hg] Catherine Covarrubiasrell Count includes the [facility] /[place] 1 18:51:09 Date Recorded Body height Body mass index (BMI) Body weight Respiratory rate Body temperature Heart rate Oxygen saturation Oxygen saturation in Arterial blood by Pulse oximetry Systolic blood pressure Diastolic blood pressure Provider Name and Address Organization Details Last Updated DateTime 1 154.94 cm 28.7 kg/m2 04473.0 4 g 16 /min 98.3 [degF] 92 /min 98 % 98 % 98 mm[Hg] 50 mm[Hg] Marko ron Count includes the [facility] /[place] 1 13:29:33 Date Recorded Body height Body temperature Body mass index (BMI) Body weight Systolic blood pressure Diastolic blood pressure Provider Name and Address Organization Details Last Updated DateTime 1 154.94 cm 97.5 [degF] 29.1 kg/m2 97998.2 2 g 92 mm[Hg] 57 mm[Hg] [facility] /[place] 1 15:15:59 Date Recorded Body height Body mass index (BMI) Body weight Body temperature Systolic blood pressure Diastolic blood pressure Provider Name and Address Organization Details Last Updated DateTime 1 154.94 cm 28.5 kg/m2 47035.4 5 g 97.7 [degF] 100 mm[Hg] 74 mm[Hg] [facility] 1 14:44:12 Social History Question Answer Notes LastModified by Organizat ion Details LastModified Time Tobacco Smoking Status Never Smoker Ally swain Count includes the [facility]/[place] /[place] 11/28/2020 14:08:24 What Is Your Level Of Alcohol Consumption? Occasional Information not available 01/29/2021 What Is Your Level Of Caffeine Consumption? Occasional Soda Information not available 01/29/2021 How Much Tobacco Do You Chew? None Information not available 01/29/2021 Do You Or Have You Ever Used E-cigarettes Or Vape? Never Used Electronic Cigarettes [id number] Information not available 10/02/2020 What Is Your Occupation? [employer] Information not available 01/29/2021 Live Alone Or [...] LastModified Time Mother Malignant tumor of colon [email or web address] Not available 10:38:57 Maternal Aunt Malignant neoplasm of brain [email or web address] Not available 10:39:19 Medical History Condition Response Other Y Stroke (CVA) N Liver Disease/Disorder N Autoimmune disease N Cancer, other N Anemia N Kidney Disease/Disorder N Diabetes N Gynecological History Statement/Question Response Abnormal Pap [...] Code Diagnosis Note 277 Marlene Yañez [place] [employer]IEF WELLNESS OFFICER [address] [address] 09/04/2020 10:54:48 09/04/2020 12:16:25 Acute vaginitis 87654927 N76.0 Rx Flagyl 500mg BID x 7 days, reinforced no alcohol within 48h of final dose. Advised condom use during antibiotic course. Encouraged proper vaginal hygiene practices (no perfumed soaps, douching, pH feminine hygiene products, etc), as well as, vaginal probiotic. Instructed if persistent signs or symptoms, notify provider. Venereal d isease screening 234878341 Z11.3 Safe sex practices, condom use reinforced . Surveillan ce of contraception 324581227 Z30.45 053410 Rena Lundberg NP _[place]_[facility] [address] [place] [address] 11/28/2020 13:45:18 11/29/2020 11:31:00 Borderline personality disorder 57548623 F60.3 Patient seeing Psych on 12/14/2020 Suspected COVID-19 52001 4004 Z20.828 Testing for visitation to hospital setting 20011231 william parker _[place] [address] [place] [address] 11/29/2020 10:16:13 12/10/2020 19:00:21 Exposure to SARS-CoV-2 757581705 Z20.828 363527 Rena Lundberg NP _[place] [address] [place] [address] 01/24/2021 13:08:51 01/24/2021 15:36:16 Autosomal recessive intermediate Jrklwbg-Nwjsk-Xvnmv disease type B 027150555 G60.0 completed paper work Overweight 011225929 E66 .3 Body mass index 25-29 - overweight 395048057 Z68.28 Family his tory of malignant neoplasm of brain 247816623 Z80.8 Family his tory of cancer of colon 100137526 Z80.0 Generalize d anxiety disorder 46883538 F41.1 Under care of psychiatrist 368695111 Z76.89 Medication review done by doctor 384334844 Z76.89 Renewal of prescription 630735735 Z76.0 Under care of neurologist 267799040 Z76.89 Endocrine/ metabolic screening 767934271 Z13.228 Borderline personality disorder 40604559 F60.3 Patient seeing Psych on 12/14/2020 [id number] Lexis Ndiaye MD _[place]_[facility] CHIEF WELLNESS OFFICER [address] [facility] [place] [address] 01/24/2021 14:54:03 01/25/2021 09:34:08 Vaginal odor 203709376 N89.8 Increased frequency of urination 224961632 R35.0 Surveillan ce of subcutaneous contraceptive implant 976489654 Z30.46 Pt was counselled about removal by CNM but never return. Pt was also given the patch to initiate assuming she would return. Pt did not start and may start with next menses. Acute urin kaiser tract infection 786823506 N39.0 Admits to getting yeast infection with antibiotic use. [id number] Marlene Yañez _[place] CHIEF WELLNESS OFFICER [address] [facility],[address] [place] [address] 01/29/2021 10:13:59 01/29/2021 10:49:11 Patient informed - test result 817175796 Z71.2 Chlamydial infection 105 801555 A74.9 - Reviewed culture results with patient. [...] . - RTO 2-3 months for re-test. [id number] Lexis Ndiaye MD VM_[place] [place] CHIEF WELLNESS OFFICER [address] [facility] [address] [place] [address] 02/07/2021 14:09:22 02/07/2021 17:03:45 Chlamydial infection 058482639 A74.9 Contracept ion care management 919742757 Z30.9 Pt planning to start the patch as per prior discussion s. Removal of subcutaneous contraceptive 196132844 Z30.46 Health Concerns Section Related Observation LastModified by Organization Detai ls LastModified Time None Recorded Concern Status LastModified by Organization Details LastModified Time None Recorded Advance Directives Directive None Recorded Payers Encounter Date Sequence Insurance Name Policy Number Policy Lin Covered Member ID Lin Member ID Guarantor Name 11/29/2020 1 [facility] [employer] (MEDICAID HMO) [id number] Viomil Delaney [id number] Viomil Delaney 11/29/2020 2 [place] [employer] Viomil Delaney [id number] Viomil Delaney 01/24/2021 1 [facility] [employer] (MEDICAID HMO) [id number] Viomil Delaney [id number] Viomil Delaney 01/24/2021 2 [place] [employer] Viomil Delaney [id number] Viomil Delaney 01/24/2021 1 [facility] (MEDICAID HMO) [id number] Viomil Delaney [id number] Viomil Delaney 01/24/2021 2 [place] [email or web address] Viomil Delaney [id number] Viomil Delaney 01/29/2021 1 [facility] [employer] (MEDICAID HMO) [id number] Viomil Delaney [id number] Viomil Delaney 01/29/2021 2 [place] [employer] Viomil Delaney [id number] Viomil Delaney 02/07/2021 1 [facility] [employer] (MEDICAID HMO) [id number] Viomil Delaney [id number] Viomil Delaney 02/07/2021 2 [place] [email or web address] Viomil Delaney [id number] Viomil Delaney Notes Date Note Type Note Provider Name and Address Organization Details Recorded Time 01/24/2021 text/html Viomil is a 30 y o female who [...] spontaneous falling or dropping of things. Rena Lundberg NP [address], [place], [address], [facility]/[place] 01/24/2021 22:14:20 01/24/2021 text/html Vaginal odor [...] but plans to now. Lexis Ndiaye MD [address], [place], [address], [facility]/[place] 01/24/2021 16:53:31 01/29/2021 text/html Today's visit wa s captured via audio and video in [facility]. Admits to new partner since last swab; unknown STD status of partner prior to engaging in intercourse. Uses condoms most of the time, but has had unprotected sex. UTI symptoms resolved - last dose today. Marlene swain, [facility]/[place] 01/29/2021 10:44:33 02/07/2021 text/html Pt now [...] and no new questions. Lexis Ndiaye MD [address] [facility],[address], [place], [address], [facility]-[place]/Marie I 02/07/2021 17:59:57 OBGyn Episode No OBEpisode recorded.
--- OUTSIDE RECORDS SUMMARY | 2025-03-13 04:54 | XMS_ITS ---
Author Organization [facility] Address [address] [place] [address] Care Team Providers Care Wire Drawing Die Maker Name Role Phone Merly Carrington Primary Care Provider Unavailab Cas Bell [phone] REASON FOR VISIT cancelled fridays procedure 7:30 am Encounters Encounter Location Date Provider Diagnosis [facility] [address] [place] [address] 01/04/2025 Cas Michel Plan Of Treatment No Information Progress Notes * EDGARDO GARCIA STEPHIEFRANCESCAILDOB: (34 yo F)Acc No.[id number]:01/04/2025 Patient:?EDGARDO VERGARAJeffrey DIANA [place] :1990???Age:34 Y???Sex:Female Address:[address] , [place], [address] * true * Date:? Generated for Lilliani tana/Shayna/eTransmitting on:?2025 04:54 AM EDT
--- OUTSIDE RECORDS SUMMARY | 2025-03-13 04:55 | XMS_ITS ---
Author Organization [facility] Address [address] [place] [address] Care Team Providers Care Geriatric Case Manager Name Role Phone Merly Carrington Primary Care Provider Unavailab Cas Bell [phone] REASON FOR VISIT screening,fam hx colon ca Encounters Encounter Location Date Provider Diagnosis [facility] Outpatient [address] [place], [place] [id number] 01/06/2025 Cas Michel Plan Of Treatment No Information Progress Notes * DIANA BARAJASILDOB: (35 yo F)Acc No.[id number]:01/06/2025 COLON WITH MAC Patient:?DIANA BARAJAS [place] Provider:?Cas Michel MD :1990???Age:34 Y???Sex:Female D ate:01/06/2025 Address:[address] , [facility] Pcp:Merly Carrington Subjective: * Chief Complaints: * ???1. Screening,fam hx colon ca. * Medical History:? Objective: * Vitals:? Assessment: Plan: * Treatment: * * The named appointment provid er may or may not be the originator of this progress note, and it is not deemed complete until electronically signed by the appointment provider. Sign off status: Pending * Provider:?Cas Michel MD Date:? 025 Generated for Tate fajardo/Shayna/Ang on:?2025 04:55 AM EDT
--- OUTSIDE RECORDS SUMMARY | 2025-03-13 04:55 | XMS_ITS | Data Portability ---
Author Organization [place] [facility] Address [address] [place] [address] Assessment No assessment recorded. Plan of Treatment Reminders Order Date Submit Date Provider Last Modified By Organization Details Last Modified Time Details Appointments None recorded. Lab urinalysis , dipstick 2019 020 [email or web address] In-Office Order, Internal Use Only DO Not Attach Compendium DO Not Attach Compendium, Do Not Delete/merge, [id number] 15:46:33 Referral None recorded. Procedures None recorded. Surgeries None recorded. Imaging XR, lumbar spine 2018 019 [email or web address] In-Office Order, Internal Use Only DO Not Attach Compendium DO Not Attach Compendium, Do Not Delete/merge, [id number] 19:28:31 Medication Orders Augmentin 875 mg-125 mg tablet 2019 020 [facility] [employer] [facility] #[id number], [address], [place], [id number], 0 15:47:52 prednisone 20 mg tablet 2019 020 [facility] #96947, [address], [place], [id number], 0 15:47:52 azelastine 137 mcg (0.1 %) nasal spray 2019 020 [facility] [employer] [facility] #[id number], [address], [place], [id number], 0 15:47:51 prednisone 20 mg tablet 2018 019 [facility] #10468, [address], [place], [id number], 9 19:15:29 ibuprofen 600 mg tablet 2018 019 [facility] #[id number], [address], [place], [id number], 9 19:14:57 ketorolac 60 mg/2 mL intramuscu lar solution 2018 Not available 9 19:14:09 Patient TargetsNo targets recorded. Patient Instructions Encounter Date Encounter Id Patient Instructions Last Modified By Organization Details Last Modified Time 10/21/2019 [id number] Motrin 600 mg 3 times a day with meals Not available 10/21/2019 19:14:45 Patient instructed if no improvement in the next 2-3 days to see PCP or call [facility] Not available 10/21/2019 19:14:51 01/12/2020 [id number] Acute Sinusitis: Care Instructions [email or web address] Not available 01/12/2020 15:47:45 Reason for Referral None Reported. Results Created Date Observation Date Name Description Value Unit Range Abnormal Flag Note LastModifiedBy Organization Detail LastModifiedTime 01/12/2001/12/2020 urina lysis , dipst ick Leukocytes Trace Not Available In-Offi ce Order Internal Use Only DO Not Attach Compendium DO Not Attach Compendium, Do Not Delete/merge, [id number] 01/12/2020 15:22:32 01/12/20 20 01/12/2020 urina lysis , dipst ick Nitrite negati ve Not Available In-Office Order Internal Use Only DO Not Attach Compendium DO Not Attach Compendium, Do Not Delete/merge, [id number] 01/12/2020 15:22:32 01/12/20 20 01/12/2020 urina lysis [...] DO Not Attach Compendium, Do Not Delete/merge, [id number] 10/26/2019 10:20:20 Procedure Notes None recorded. Medical [...] t Available Vitals Date Recorded Body weight Body mass index (BMI) Body height Body temperature Respiratory rate Oxygen saturation Oxygen saturation in Arterial blood by Pulse oximetry Heart rate Systolic blood pressure Diastolic blood pressure Provider Name and Address Organization Details Last Updated DateTime 9 03889.8 2 g 29.3 kg/m2 154.94 cm 97 [degF] 17 /min 99 % 99 % 105 /min 118 mm[Hg] 73 mm[Hg] Myrtle Clemons [facility] 9 18:33:40 Date Recorded Body height Body mass index (BMI) Body weight Body temperature Respiratory rate Oxygen saturation Oxygen saturation in Arterial blood by Pulse oximetry Heart rate Systolic blood pressure Diastolic blood pressure Provider Name and Address Organization Details Last Updated DateTime 0 154.94 cm 28.9 kg/m2 90359.6 3 g 98.5 [degF] 17 /min 97 % 97 % 71 /min 110 mm[Hg] 53 mm[Hg] Myrtle Clemons [facility] 0 15:33:34 Social History Question Answer Notes LastModified by Organizat ion Details LastModified Time Tobacco Smoking Status Never Smoker Myrtle Clemnos [facility] 10/21/2019 18:28:01 What Was The Date Of Your Most Recent Tobacco Screening? 10/21/2019 Information n ot available 10/22/2019 Sex: Unknown Functional Status None recorded. Mental Status None recorded. Family History Relationship Description Onset Age of this Age Resolved Age Notes LastModified by Organization Details LastModified Time Father No current problems or disability [email or web address] Not available 10/01 18:24:50 Mother No current problems or disability [email or web address] Not available 10/01 18:24:50 Medical History Condition Response Anesthesia complications N Coronary Artery Disease N Gout N Erectile Dysfunction N Colonoscopy N COPD N Depression N Defects or Inherited Disease N Vascular [...] SNOMED-CT Code Diagnosis ICD10 Code Diagnosis Note [id number] Matt Vital MD Urgent Care [address] [place] [phone] 10/21/2019 18:21:10 10/21/2019 19:28:31 Low back pain 580684071 M54.5 Acute sciatica 729190778 M54.32 [id number] Brown Rider DO Urgent Care [address] [place] [phone] 01/12/2020 15:18:33 01/12/2020 16:07:34 Urinary tract infectious disease 31152517 N39.0 Acute sinusitis 12551631 J01.90 Cervical lymphadenitis 2918182 I88.9 Health Concerns Section Related Observation LastModified by Organization Detai ls LastModified Time None Recorded Concern Status LastModified by Organization Details LastModified Time None Recorded Advance Directives Directive None Recorded Payers Encounter Date Sequence Insurance Name Policy Number Policy Lin Covered Member ID Lin Member ID Guarantor Name 10/21/2019 2 [facility] [employer] Viomil Delaney [id number] Viomil Delaney 01/12/2020 1 [facility] (MEDICAID HMO) [id number] Viomil Delaney [id number] Viomil Delaney 01/12/2020 2 [place] [employer] Viomil Delaney [id number] Viomil Delaney Notes Date Note Type Note [...] 2 weeks ago . Matt Vital MD [address] [place] [address], [address] [place] [address], [facility] 10/21/2019 19:15:58 01/12/2020 text/html UTI female UCReported bypatient.UTI Symptoms:urgency; flank pain;burning sensation during urination;abdomin al pain Severity:moderate Duration:3 weeksNotes:Pt think she has a UTI , burning , urgency , started 3 weeks ago , pt is also having pain and clogged both ears started 1 week ago . Brown Rider DO [address] [place] [address], [address] [place] [address], [facility] 01/12/2020 15:49:25 OBGyn Episode No OBEpisode recorded.
--- OUTSIDE RECORDS SUMMARY | 2025-03-13 04:55 | XMS_ITS | Clinical Summary ---
Author Organization [facility] ity Address [address] [place] [address] Care Team Providers Care C++ Quant Developer Name Role Phone Unavailable Primary Care Provider Unavailabl e Social History Tobacco Use Types Packs/Day Years Used Date Smoking Tobacco: Never Assessed Comments Unknown Sex and Gender Information Value Date Recorded Sex Assigned at Not on file Legal Sex Female 12:20 PM EDT Gender Identity Not on file Sexual Orientation Not on file Plan of Treatment Health Maintenance Due Date Last Done Comments DTaP,Tdap,and Td Vaccines (1 - Tdap) 2009 Hepatitis B Vaccines (1 of 3 - 19+ 3-dose series) 2009 Cervical Cancer Screening: P ap Smear 2011 Depression Screening 06/07/2022 HIV Screening 06/07/2022 Hepatitis C Screening 06/07/2022 Social Influencers of Health Screening 06/07/2022 COVID-19 Vaccine ( - 2023-2 5 season) 2024 Influenza Vaccine (Season Ended) 2025 08/19/20 19 HIB Vaccines Aged Out No longer eligi [...] patient's age to complete this topic Meningococcal B Vaccine Aged Out No l onger eligible based on patient's age to complete [...]
--- OUTSIDE RECORDS SUMMARY | 2025-03-13 04:55 | XMS_ITS ---
Author Organization [facility] Address [address] [place] [address] Care Team Providers Care Merchandiser Seasonal Name Role Phone Merly Carrington Primary Care Provider Unavailab Cas Bell [phone] REASON FOR VISIT screening, fam hx colon ca Encounters Encounter Location Date Provider Diagnosis [facility] [address] [place] [id number] 08/29/2024 Cas Michel Plan Of Treatment No Information Progress Notes * DIANA BARAJASILDOB: (35 yo F)Acc No.[id number]:08/29/2024 COLON WITH MAC Patient:?DIANA BARAJAS [place] Provider:?Cas Michel MD :1990???Age:34 Y???Sex:Female D ate:08/29/2024 Address:[address] [facility] [address] , [facility] Pcp:Merly Carrington Subjective: * Chief Complaints: * ???1. Screening, fam hx colo n ca. * Medical History:? Objective: * Vitals:? Assessment: Plan: * Treatment: * * The named appointment provid er may or may not be the originator of this progress note, and it is not deemed complete until electronically signed by the appointment provider. Sign off status: Pending * Provider:?Cas Michel MD Date:?09/30/2 024 Generated for Tate fajardo/Shayna/Ang on:?2025 04:55 AM EDT
--- OUTSIDE RECORDS SUMMARY | 2025-03-13 04:55 | XMS_ITS | Data Portability ---
Author Organization [facility] [employer], [facility] Address [address] [address] Assessment Encounter Date Assessment Date Assessment LastModified by Organization Details LastModified Time 05/22/2022 05/22/2022 32yo presents for annual exam. Doing Well. [email or web address] Not available 05/24/2022 15:38:07 Plan of Treatment Reminders Order Date Submit Date Provider Last Modified By Organization Details Last Modified Time Details Appointments None recorded. Lab HIV 1 + 2, meaningful use set 2021 022 [facility], [address] [place], [address], 21:05:43 RPR (rapid plasma reagin), serum 2021 022 [facility], [address], [place], [address], 2 21:05:42 hepatitis panel (A+B+C), acute, serum 2021 022 [facility], [address], [place], [address], 2 21:05:42 Pap smear tests - FPAR 2.0 set - lmp unknown 2021 022 [facility], [address], [place], [address], 21:05:[address] referral 2021 [email or web address] Not available 15:46:51 Procedures None recorded. Surgeries None recorded. Imaging None recorded. Medication Orders hydrocortis one 2.5 % topical cream 2021 022 [facility] Not available 18:49:49 Patient TargetsNo targets recorded. Patient Instructions Encounter Date Encounter Id Patient Instructions Last Modified By Organization Details Last Modified Time 05/22/2022 [id number] Instructed in healthy diet and exercise, safe sexual practices, family planning, self-breast exam and skin checks, and concurrent care by her PCP. 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 Referring Physician: aKran Colon, APPELLATE COURT CLERK, Encounter Date: 05/22/2022 Results Created Date Observation Date Name Description Value Unit Range Abnormal Flag Note LastModifiedBy Organization Detail LastModifiedTime 05/22/20 22 05/23/2022 HAV, HBV, HCV hep A Ab, total Positi ve negati ve abnormal Not Available [facility] ([facility]) [address] [place], [address], 05/23/2022 21:05:42 05/22/20 22 05/23/2022 HAV, HBV, HCV hep A Ab, IgM Negati ve negati ve Not Available [facility] ([facility]) [address] [place], [address], 05/23/2022 21:05:42 05/22/20 22 05/23/2022 HAV, HBV, HCV HBsAg screen Negati ve negati ve Not Available [facility] ([facility]) [address] [place], [address], 05/23/2022 21:05:42 05/22/20 22 05/23/2022 HAV, HBV, HCV hep B surface Ab, qual Non Reacti ve Non React debo: Incon siste nt with immun ity, less than 10 mIU/m L React debo: Consi stent with immun ity, great er than 9.9 mIU/m L Not Available [facility] ([facility]) [address] [place], [address], 05/23/2022 21:05:42 05/22/20 22 05/23/2022 HAV, HBV, HCV hep B core Ab, tot Negati ve negati ve Not Available [facility] ([facility]) [address] [place], [address], 05/23/2022 21:05:42 05/22/2005/23/2022 HAV, HBV, HCV rfx to hbc IgM Commen t Refle x crite kevin was not met. Not Available [facility] ([facility]) [address] [place], [address], 05/23/2022 21:05:42 05/22/2005/23/2022 HAV, HBV, HCV interpretati [...] n); false - posit debo anti- HBc ([facility] eptib le); low- level chron ic infec tion ; resol ving acute infec tion. Not Available [facility] ([facility]) [address] [facility], [place], [address], 05/23/2022 21:05:42 05/22/20 22 05/23/2022 HAV, HBV, HCV HCV Ab <0.1 s/co_ ratio 0.0-0. 9 Not Available [facility] ([facility]) [address] [facility], [place], [address], 05/23/2022 21:05:42 05/22/20 22 05/23/2022 HAV, HBV, HCV interpretati on: Commen t Negat debo Not infec new with HCV, unles s recen t infec tion is suspe cted or other evide nce exist s to indic ate HCV infec tion. Not Available [facility] ([facility]) [address] [facility], [place], [address], 05/23/2022 21:05:42 05/22/20 22 05/23/2022 RPR, RFX QN RPR/C ONFIR M TP RPR Non Reacti ve non reacti ve Not Available [facility] ([facility]) [address] [facility], [place], [address], 05/23/2022 21:05:42 05/22/20 22 05/23/2022 HIV AB/P2 4 AG WITH REFLE X HIV Ab/P24 Ag screen Non Reacti ve non reacti ve HIV Negat debo HIV-1 /HIV- 2 antib odies and HIV-1 p24 antig en were NOT detec new. There is no labor atory evide nce of HIV infec tion. Not Available [facility] ([facility]) [address] [facility], [place], [address], 05/23/2022 21:05:43 05/22/20 22 05/26/2022 IGP,C TNG,A PTIMA HPV,R FX16/ 18,45 HPV aptima Negati ve negati ve This nucle ic acid ampli ficat ion test detec ts fourt een high- risk HPV types (16,1 8,31, 33,35 ,39,4 5,51, 52,56 ,58,5 9,66, 68) witho ut diffe renti ation . Not Available [facility] ([facility]) [address] [place], [address], 05/27/2022 21:05:38 05/22/20 22 05/26/2022 IGP,C TNG,A PTIMA HPV,R FX16/ 18,45 chlamydia, nuc. acid amp Negati ve negati ve Not Available [facility] ([facility]) [address] [place], [address], 05/27/2022 21:05:38 05/22/20 22 05/26/2022 IGP,C TNG,A PTIMA HPV,R FX16/ 18,45 gonococcus, nuc. acid amp Negati ve negati ve Not Available [facility] ([facility]) [address] [place], [address], 05/27/2022 21:05:38 05/22/20 22 05/27/2022 IGP,C TNG,A PTIMA HPV,R FX16/ 18,45 diagnosis: Commen t NEGAT DEBO FOR INTRA EPITH ELIAL LESIO N OR MALCONNIE HOOD . THIS SPECI MEN WAS RESCR EENED PART OF OUR QUALI TY CONTR OL PROGR AM. Not Available [facility] ([facility]) [address] [place], [address], 05/27/2022 21:05:38 05/22/20 22 05/27/2022 IGP,C TNG,A PTIMA HPV,R FX16/ 18,45 specimen adequacy: Osman vera Satis facto ry for evalu ation . Endoc ervic al and/o r squam ous metap lasti c cells (endo cervi ronnie compo nent) are prese nt. Not Available [facility] ([facility]) [address] [place], [address], 05/27/2022 21:05:38 05/22/20 22 05/27/2022 IGP,C TNG,A PTIMA HPV,R FX16/ 18,45 clinician provided ICD10: Osman vera Z01.4 19 Z20.2 Not Available [facility] ([facility]) [address] [place], [address], 05/27/2022 21:05:38 05/22/20 22 05/27/2022 IGP,C TNG,A PTIMA HPV,R FX16/ 18,45 performed by: Osman alanis, Cytot echno logis t (ASCP ) Not Available [facility] ([facility]) [address] [place], [address], 05/27/2022 21:05:38 05/22/20 22 05/27/2022 IGP,C TNG,A PTIMA HPV,R FX16/ 18,45 QC reviewed by: Osman Vee , Cytot echno logis t (ASCP ) Not Available [facility] ([facility]) [address] [place], [address], 05/27/2022 21:05:38 05/22/20 22 05/27/2022 IGP,C TNG,A PTIMA HPV,R FX16/ 18,45 . . Not Available [facility] ([facility]) [address] [place], [address], 05/27/2022 21:05:38 05/22/20 22 05/27/2022 IGP,C TNG,A [...] ts do occur . Not Available [facility] ([facility]) [address] [facility], [place], [address], 05/27/2022 21:05:38 05/22/20 22 05/27/2022 IGP,C TNG,A PTIMA HPV,R FX test methodology: Osman t This liqui d based ThinP rep(R ) pap test was scree shai with the use of an image guide d aaron m. Not Available [facility] ([facility]) [address] [facility], [place], [address], 05/27/2022 21:05:38 Result Notes None recorded. Medical [...] Updated DateTime 05/22/2022 154.94 cm 30.4 kg/m2 61679.37 g 110 mm[Hg] 74 mm[Hg] Virginia BRUCE [facility] 18:03:39 Social History Question Answer Notes LastModified by Organizat ion Details LastModified Time Tobacco Smoking Status Former Smoker [facility] 05/22/2022 18:02:18 What Is Your Level [...] (Food, seasonal, environmental ) N Other Y Drug/Latex Allergies/Reactions N Breast Cancer N Blood Transfusion N Dermatologic Disorders N Lung Disease N Defects or Inherited Disease N Breast Problem N Gestational Diabetes N Hematologic disorders N Anesthesia Complications N History of STI N Deep Vein Thrombosis N Polycystic ovary syndrome N Anxiety Disorder N Autoimmune disease N Arthritis N Polyps N Infertility N Acid Reflux (GERD) N History of abnormal pap N Cancer N Varicosities N Stroke N Neurologic/Epilepsy N Endometriosis N High Cholesterol N Fibromyalgia N Headaches N Kidney Disease N Heart Problems N Thyroid Problems N Kidney or Bladder Problems N GI Problems N Acne N Eating Disorder N Anemia N Art (IVF or FET) N Psychiatric Illness N Ovarian Cancer N Diabetes N Pulmonary (TB, Asthma) N Hepatitis/Liver Disease [...] SNOMED-CT Code Diagnosis ICD10 Code Diagnosis Note [id number] Karan Colon MD [facility] [place] [address] [facility] [address] [phone] 05/22/2022 17:23:07 05/22/2022 19:05:21 Gynecologic examination 04125034 Z01.419 Z20.2 Reviewed importance of annual exams, screening tests, PCP visits Surveillan ce of contraception 126527222 Z30.41 Same sex partner Psoriasis 7330532 L40.9 At [facility] risk of sexually transmitted infection 110791356 Z20.2 Health Concerns Section Related Observation LastModified by Organization Detai ls LastModified Time None Recorded Concern Status LastModified by Organization Details LastModified Time None Recorded Advance Directives Directive None Recorded Payers Encounter Date Sequence Insurance Name Policy Number Policy Lin Covered Member ID Lin Member ID Guarantor Name 05/22/2022 1 [id number] (MEDICARE REPLACEMENT/A DVANTAGE - PPO) Viomil Dinzey Delaney [id number] Viomil Dinzey-Shahnaz a Notes Date Note Type Note Provider Name and Address Organization Details Recorded Time 05/22/2022 text/html Presents for annual exam LMP: 05/08/2022Menses: Regular. 5 days q 28 daysLast Pap: 3 years agoAbnormal Pap Smears: DeniesMammogram: Not yet indicatedColonosc opy: Not yet indicated Contraception: NoneCOVID Vaccine: Moderna x 2 doses CMT: Sees neurologist. Karan Colon MD [address] [place] [address] [address], [place], [address], [facility] 05/24/2022 15:38:46 OBGyn Episode Ob Episode Information Episode Created Date Number of Fetuses Patient Bloodtype Patient rh Status Prepregnancy Weight lbs Domestic Partner Domestic Partner Phone Father Name Curatorial Specialist Status 05/22/20 22 1 CLOSED Fetus Data First Name Last Name Admitted to NICU Weight (g) Sex Living Outcome Pediatric Complications Fetus ID Race Codes Race Delivery Type M Full Term [id number] Vaginal Anish Calculation Initial Anish Date Initial [...] Complications Tubal Sterilization Discharge Date Comments 5 [facility] Discharge Information Feeding Method Contraceptive Method Maternal HG B and HCT Levels Ob Episode Information Episode Created Date Number of Fetuses Patient Bloodtype Patient rh Status Prepregnancy Weight lbs Domestic Partner Domestic Partner Phone Father Name Curatorial Specialist Status 05/22/20 22 1 CLOSED Fetus Data First Name Last Name Admitted to NICU Weight (g) Sex Living Outcome Pediatric Complications Fetus ID Race Codes Race Delivery Type M Full Term [id number] Vaginal Anish Calculation Initial Anish Date Initial [...] Complications Tubal Sterilization Discharge Date Comments 6 [facility] Discharge Information Feeding Method Contraceptive Method Maternal HG B and HCT Levels
--- OUTSIDE RECORDS SUMMARY | 2025-03-13 04:55 | XMS_ITS | Patient Health Record ---
Author Organization [facility] Address [address] [place] [address] Care Team Providers Care Manugrapher Name Role Phone Merly Carrington Primary Care Provider Unavailab Cas Bell Unavailable [phone] Allergies No Known Allergies Reason For Referral Referring Provider First Name Merly Referring Provider Last Name Charissa Referring Provider Speciality Internal M edicine Referred Organization [facility] Referred Provider Cas Michel Referred Address [address],[place], [place],[address], Referred Provider Specialty Gastroentero logy General Notes Amalia Miranda 024 02:55:14 PM EDT > requested a [facility] referral from Dr. Carrington's office for colon with Dr. Michel on [phone] Referral Priority Routine Medications Medication SIG (Take, Route, Frequency, Duration) Notes Start Date End Date Status busPIRone HCl 10 MG TAKE 1 TABLET BY GEOVANNI TH THREE TIMES DAILY Oral for 30 Active ARIPiprazole 10 MG TAKE 1 TABLET BY GEOVANNI TH AT BEDTIME Oral for 30 Active buPROPion HCl ER (XL) 150 MG TAKE 1 TABL ET BY MOUTH DAILY Oral for 30 Active Gabapentin 800 MG TAKE 1 TABLET BY GEOVANNI TH THREE TIMES DAILY Oral for 30 Active Cyclobenzaprine HCl 10 MG TAKE 1 TABLET BY MOUTH AT BEDTIME Oral for 30 Active Dulcolax (colon prep) 5 MG take at 3:00 p.m and 7:00p.m. Orally two tablets twice a day for one day for 1 day 05/10/2024 Active MiraLax (colon prep) 17 GM/SCOOP 1 238Gm bottle mixed with Gatorade or Crystal Light Orally begin at 5:00 p.m. the day before the procedure for 1 day 05/10/2024 Active Social History Tobacco Use: Social History Observation Description Date Details (start date - stop date) Never Smoker NA - NA Tobacco Use/Smoking Question Answer Notes Patient is a nonsmoker Alcohol Screen Question Answer Notes Did you have a drink containing alcohol in the p ast year? No Points 0 Interpretation Negative Section Notes: Nonsmoker; no alcohol Substance abuse--sober for 10 years Problems Problem Type SNOMED Code ICD Code Onset Dates Problem Status W/U Status Risk Notes Problem Screening for malignant neoplasm of colon (358973085) Encounter for screening for malignant neoplasm of colon (Z12.11) Active confirmed Problem Pre-procedure evaluation check (549997422) Encounter for other preprocedural examination (Z01.818) Active confirmed Problem Family history of malignant neoplasm of gastrointestinal tract (330588685) Family history of colon cancer in mother (Z80.0) Active confirmed Vital Signs Blood pressure diastolic 00 mm Hg 05/05/2024 Height 5 ft 1 in in 05/05/2024 Blood pressure systolic 00 mm Hg 05/05/2024 Weight 225 lbs 05/05/2024 BMI 42.51 kg/m2 05/05/2024 Encounters Encounter Location Date Provider Diagnosis [facility] [address] [place] [phone] 05/05/2024 Cas Michel Family history of co margarito cancer in mother Z80.0 ; Encounter for other preprocedural examination Z01.818 and Encounter for screening for malignant neoplasm of colon Z12.11 [facility] [address] [place] [phone] 05/05/2024 Cas Michel [facility] [address] [place] [phone] 08/29/2024 Cas Michel [facility] [address] [place] [phone] 01/04/2025 Cas Michel Assessments Encounter Date Diagnosis (ICD Code) Assessment Notes Treatment Notes Treatment Clinical Notes Section Notes 05/05/2024 Encounter for other preprocedural examination (ICD-10 - Z01.818) Overall, Cindy appears well. Given her age and her significant family history of colon cancer in her mother at a young age, I did recommend Cindy undergo a colonoscopy this year for screening purposes. We did review the rationale for that regard to colon cancer prevention. Full consent is obtained for this, including risks of bleeding and perforation. The procedure will be done monitored with anesthesia care. We did review that even if this colonoscopy is negative I would then recommend a colonoscopy every 5 years thereafter. Cindy was comfortable with this plan. Thank you again for allowing me to participate in Cindy's care. I shall continue to keep you advised of her progress. 05/05/2024 Family history of colon cancer in mother (ICD-10 - Z80.0) Overall, Cindy appears well. Given her age and her significant family history of colon cancer in her mother at a young age, I did recommend Cindy undergo a colonoscopy this year for screening purposes. We did review the rationale for that regard to colon cancer prevention. Full consent is obtained for this, including risks of bleeding and perforation. The procedure will be done monitored with anesthesia care. We did review that even if this colonoscopy is negative I would then recommend a colonoscopy every 5 years thereafter. Cindy was comfortable with this plan. Thank you again for allowing me to participate in Cindy's care. I shall continue to keep you advised of her progress. 05/05/2024 Encounter for screening for malignant neoplasm of colon (ICD-10 - Z12.11) Overall, Cindy appears well. Given her age and her significant family history of colon cancer in her mother at a young age, I did recommend Cindy undergo a colonoscopy this year for screening purposes. We did review the rationale for that regard to colon cancer prevention. Full consent is obtained for this, including risks of bleeding and perforation. The procedure will be done monitored with anesthesia care. We did review that even if this colonoscopy is negative I would then recommend a colonoscopy every 5 years thereafter. Cindy was comfortable with this plan. Thank you again for allowing me to participate in Kannans care. I shall continue to keep you advised of her progress. Plan Of Treatment Future Test Test Name Order Date COLONOSCOPY 05/05/2024 Insurance Providers Payer Name Payer Address Payer Phone Subscriber Number Group Number Insured Name Patient Relationship to Insured Coverage Start Date Coverage End Date MEDICAID OF [facility] [address] [place] [phone] [id number] ROBY BARAJAS Self - patient is the insured Medical (General) History Medical History History ICD Code Denies NE,DM,CVA,Lung disease,renal dise ase Charcot Leanna Tooth disease--affects leg s, hands, and balance Depression/PTSD Surgical History Surgery Date(Month/Year)
[2025-03-13 05:02] LABS: Alanine Aminotransferase 17 U/L (0-31); Albumin Level 3.6 g/dL (3.5-5.0); Alkaline Phosphatase 88 U/L (39-117); Anion Gap 13 (12-20); Aspartate Amino Transferase 21 U/L (5-31); Bilirubin Total 0.3 mg/dL (0.0-1.0); Blood Urea Nitrogen 13 mg/dL (9-16); C Reactive Protein 0.55 mg/dL (< or = 0.50); Calcium 8.9 mg/dL (8.4-10.2); Carbon Dioxide 20 mmol/L (22-29); Chloride 109 mmol/L (96-108); Creatinine Clr Calc Pharmacy 119.5; Estimated Glomerular Filt Rate > 60; Glucose Random 113 mg/dL (60-115); Sodium 138 mmol/L (135-145); Total Protein 6.7 g/dL (6.5-8.0)
[2025-03-13 05:28] LABS: Influenza A PCR NEGATIVE (Negative); Influenza B PCR NEGATIVE (Negative); Resp Syncy Virus RNA Qual PCR NEGATIVE (Negative); SARS COV2 PCR INHOUSE NEGATIVE (Negative)
--- NOTE | 2025-03-13 05:29 | ED.GENADULT ---
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 follow up with neurologist giving gabapentin comes here for having more pain for last few days been here with similar presentation in the past no recent intake of any new medications Related Data Home Medications ?Medication ?Instructions ?Recorded ?Confirmed buspirone 10 mg tablet 10 mg PO TID PRN anxiety 07/25/24 12/20/24 cyclobenzaprine 10 mg tablet 10 mg PO BEDTIME PRN muscle spasms 07/25/24 12/20/24 Previous Rx's ?Medication ?Instructions ?Recorded aripiprazole 10 mg tablet (Abilify) 10 mg PO BEDTIME #30 tabs 01/29/23 bupropion HCl 150 mg 24 hr tablet, 150 mg PO QAM #30 tabs 01/29/23 extended release gabapentin 800 mg tablet 800 mg PO TID #90 tabs 01/29/23 naproxen 500 mg tablet (Naprosyn) 500 mg PO BID #20 tabs 10/05/24 acetaminophen 500 mg tablet 1,000 mg (2 x 500 mg) PO Q8H PRN 11/17/24 (Tylenol Extra Strength) pain #30 tabs ibuprofen 600 mg tablet 600 mg PO Q6H PRN pain #30 tabs 11/17/24 tramadol 50 mg tablet 50 mg PO Q12H PRN pain #30 tabs 12/07/24 leg brace #1 ea 12/20/24 morphine 15 mg immediate release 15 mg PO Q8H PRN pain #15 tabs 03/13/25 tablet Allergies Allergy/AdvReac Type Severity Reaction Status Date / Time apple Allergy Throat Verified 03/13/25 04:22 itches Review of Systems Review of Systems: Yes all other systems are reviewed and are negative PMFSH Past Medical History Medical History PTSD (post-traumatic stress disorder) Anxiety Depression Charcot Leanna Tooth muscular atrophy Family History Family History Mother Colon cancer Social History Social History Household Members: Children Household Members Other:: Pt's son,sister and brother in law Housing: Apartment Patient Tobacco Use Status: Former Tobacco user Tobacco use type: Cigarette Second Hand Smoke Exposure: No Substance Use Type: Marijuana Advance Directives: No Advance Directives Information Provided: Yes Do you have a plan to hurt others: No Plan service: No Sexual orientation: Straight/Heterosexual Physical Exam ED Vital Signs: Vital Signs - 24 hr 03/13/25 04:22 Temperature 99.3 F Pulse Rate 88 Respiratory Rate 18 Blood Pressure 120/80 Pulse Oximetry 97 Oxygen Delivery Method Room Air BMI result Body Mass Index 43.4 Appearance: Alert. Oriented X3. No acute distress. Eyes: No pallor or icterus ENT: Pharynx normal. Oral Mucosa moist Neck: Normal inspection. Neck supple. CVS: Normal heart rate and rhythm. Pulses normal. Respiratory: No respiratory distress. Equal air entry bilateral, no wheezing/rales/rhonchi Abdomen: Soft and nontender. Bowel sounds are present, no mass palpable, no CVA tenderness Skin: Skin warm and dry. Normal skin color. Normal skin turgor. Extremities: No lower extremity edema. No calf tenderness Neuro: Oriented X 3. No motor deficit. 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 03/13/25 04:44 03/13/25 04:44 Labs: Lab Results 03/13/25 Range/Units 04:44 WBC 8.7 (4.8-10.8) X10*3/uL RBC 4.12 L (4.20-5.50) X10*6/uL Hgb 12.0 (12.0-16.0) g/dl Hct 35.9 L (37.0-47.0) % MCV 87.1 (80.0-98.0) fL MCH 29.1 (27.0-33.0) pg MCHC 33.4 (31.0-35.0) g/dl RDW 14.2 (11.0-16.0) % Plt Count 368 (160-400) X10*3/uL MPV 8.8 L (9.4-12.3) fL Immature Gran % (Auto) 0.2 (0.0-0.4) % Neut % (Auto) 52.8 (45-73) % Lymph % (Auto) 33.1 (20-40) % Schleicher % (Auto) 10.5 (2-11) % Eos % (Auto) 2.9 (0-4) % Baso % (Auto) 0.5 (0-2) % Lymph # (Auto) 2.9 (1.2-4.9) X10*3/uL Schleicher # (Auto) 0.9 (0.1-1.2) X10*3/uL Eos # (Auto) 0.3 (0.0-0.4) X10*3/uL Baso # (Auto) 0.0 (0.0-0.2) X10*3/uL Abs Immat Gran (auto) 0.02 (0.00-0.03) X10*3/uL Absolute Neuts (auto) 4.6 (2.0-8.3) x10*3/uL Absolute Nucleated RBC 0.000 (0.0-0.012) X10*3/uL Nucleated RBC % (auto) 0.0 (0.0-0.2) /100WBC Sodium 138 (135-145) mmol/L Potassium 4.0 (3.3-5.1) mmol/L Chloride 109 H (96-108) mmol/L Carbon Dioxide 20 L (22-29) mmol/L Anion Gap 13 (12-20) BUN 13 (9-16) mg/dL Creatinine 0.73 (0.5-1.4) mg/dL Estim Creat Clear Calc 119.5 Estimated GFR > 60 Random Glucose 113 (60-115) mg/dL Calcium 8.9 (8.4-10.2) mg/dL Total Bilirubin 0.3 (0.0-1.0) mg/dL AST 21 (5-31) U/L ALT 17 (0-31) U/L Alkaline Phosphatase 88 (39-117) U/L C-Reactive Protein 0.55 H (< or = 0.50) mg/dL Total Protein 6.7 (6.5-8.0) g/dL Albumin 3.6 (3.5-5.0) g/dL Influenza Type A (PCR) NEGATIVE (Negative) Influenza Type B (PCR) NEGATIVE (Negative) RSV RNA Qual (PCR) NEGATIVE (Negative) SARS-CoV-2 RNA (RT-PCR) NEGATIVE (Negative) Discharge Plan Discharge Clinical Impression: Charcot Leanna Tooth muscular atrophy Patient Disposition: Home, Self-Care Instructions: Peripheral Neuropathy (ED) Additional Instructions: Continue take your gabapentin Morphine tablets for severe pain as prescribed Follow with your neurologist Prescriptions: New morphine 15 mg tablet 15 mg PO Q8H PRN (Reason: pain) Qty: 15 0RF Rx Instructions: Partial Fill upon patient request. No Action aripiprazole [Abilify] 10 mg tablet 10 mg PO BEDTIME Qty: 30 0RF Patient Comments: Patient stated she takes in the morning. bupropion HCl 150 mg tablet extended release 24 hr 150 mg PO QAM Qty: 30 0RF gabapentin 800 mg tablet 800 mg PO TID Qty: 90 0RF ibuprofen 600 mg tablet 600 mg PO Q6H PRN (Reason: pain) Qty: 30 0RF acetaminophen [Tylenol Extra Strength] 500 mg tablet 1,000 mg PO Q8H PRN (Reason: pain) Qty: 30 0RF cyclobenzaprine 10 mg tablet 10 mg PO BEDTIME PRN (Reason: muscle spasms) buspirone 10 mg tablet 10 mg PO TID PRN (Reason: anxiety) naproxen [Naprosyn] 500 mg tablet 500 mg PO BID Qty: 20 0RF tramadol 50 mg tablet 50 mg PO Q12H PRN (Reason: pain) Qty: 30 0RF (DME) leg brace Misc See Rx Instructions .Route Qty: 1 0RF Rx Instructions: As directed Print Language: Moroccan
[2025-03-13] MEDS: Morphine Sulfate Immed Release 15 MG TABLET PO (06:14)
[2025-03-13 06:40] VITALS: BP 125/73; PULSE 77; RESP 16; TEMP 36.7; O2SAT 95
== END 2025-03-13 06:40 | disposition home or self-care (01) ==
PROVIDERS: Emergency Provider Internal Medicine; PCP Internal Medicine
DX: G90.09 Other idiopathic peripheral autonomic neuropathy (principal); Z03.818 Encounter for observation for suspected exposure to other biological agents ruled out; Z79.899 Other long term (current) drug therapy
CPT/HCPCS: 0241U; 36415; 80053; 85025; 86140; 99283

== ENCOUNTER 2025-05-27 08:16 | Emergency (ER) | payer OTHER, SELFPAY ==
[2025-05-27 08:18] VITALS: BP 146/83; PULSE 81; RESP 18; TEMP 36.1; O2SAT 96; BMI 45.4
--- NOTE | 2025-05-27 08:33 | ECG_ITS ---
Test Reason : BODY ACHE Blood Pressure : */* mmHG Vent. Rate : 86 BPM Atrial Rate : 86 BPM P-R Int : 188 ms QRS Dur : 74 ms QT Int : 360 ms P-R-T Axes : 58 58 51 degrees QTcB Int : 430 ms Normal sinus rhythm with sinus arrhythmia Septal infarct , age undetermined Abnormal ECG When compared with ECG of 11-Jul-2024 11:22, No significant change was found Referred By: Rosemary Middleton Electronically Signed By: CECI GRANDE
--- OUTSIDE RECORDS SUMMARY | 2025-05-27 08:35 | XMS_ITS | Data Portability ---
Author Organization [facility], Pe nnjaylan, MMSEPA_F_Card_Lena_ Stefan Address [address] [place] [id number] Assessment No assessment recorded. Plan of Treatment Reminders Order Date Submit Date Provider Last Modified By Organization Details Last Modified Time Details Appointments None recorded. Lab CBC w/ auto diff 2018 019 [email or web address] [facility], [address] [place] [address], [id number], 0 14:32:12 beta-HCG, qualitativ e, serum or plasma 2018 019 [email or web address] [facility], [address] [place] [address], [id number], 0 14:32:12 PPD (purified protein derivative ), skin test 2018 019 UDAY [facility]office, [address] [place], [address], 9 10:04:36 Referral gastroente rologist referral 2018 019 [email or web address] Not available 9 07:24:03 rheumatolo gist referral 2018 019 [email or web address] Gutierrez Krishnan MD, [address] [place], [address], 9 07:24:03 Procedures None recorded. Surgeries None recorded. Imaging None recorded. Medication Orders dicyclomin e 10 mg capsule 2018 019 INTERFACE [id number], [address] [place] [address], [id number], 9 13:59:54 famotidine 20 mg tablet 2018 019 [email or web address] [facility], [address] [place] [address], [id number], 9 13:32:44 fluoxetine 20 mg capsule 2018 019 [email or web address] [facility], [address] [place] [address], [id number], 9 13:32:58 buspirone 10 mg tablet 2018 019 INTERFACE [id number], [address] [place] [address], [id number], 9 13:59:48 bupropion HCl XL 150 mg 24 hr tablet, extended release 2018 019 INTERFACE [facility]227, [address] [place] [address], [id number], 9 13:59:46 buspirone 10 mg tablet 2018 019 INTERFACE [id number], [address] [place] [address], [id number], 9 09:28:31 Wellbutrin SR 150 mg tablet, 12 hr sustained- release 2018 019 [facility]14, [address] [place] [address], [id number], 9 13:42:42 fluoxetine 20 mg capsule 2018 019 [facility]08298, [address] [place] [address], [id number], 9 13:32:58 Patient TargetsNo targets recorded. Patient Instructions Encounter Date Encounter Id Patient Instructions Last Modified By Organization Details Last Modified Time 05/27/2019 [id number] eating healthy foods: care instructions [email or web address] Not available 05/27/2019 09:28:26 08/19/2019 [id number] call answering service over weekend if feel worse, you develop fevers, nausea or vomiting, if pain gets worse or if bleeding does not continue to lessen. f/u Thursday with Allan for next steps. 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 Referral for Fibromyalgia Referring Physician: Allan Connel[facility], Encounter Date: 05/27/2019 Family Development Specialist Referral for Lower abdominal pain Referring Physician: Allan Connelly [facility], Encounter Date: 05/27/2019 Results Created Date Observation Date Name Description Value Unit Range Abnormal Flag Note LastModifiedBy Organization Detail LastModifiedTime 05/30/2005/30/2019 PPD (ollie fied prote in deriv ative ), skin test Unknown Analyte Unknow n Not Available [facility]ps[facility]pcp[facility]r avila wn[facility]office [address] [place] [address], [phone], 05/27/2019 09:23:53 05/30/20 19 05/30/2019 PPD (ollie fied prote in deriv ative ), skin test Unknown Analyte Unknow n Not Available [facility] [address] [place] [address], [phone], 05/27/2019 09:23:53 05/30/20 19 05/30/2019 PPD (ollie fied prote in deriv ative ), skin test Unknown Analyte [id number] Not Available Nps_n_ pcp_rha wn_office [address] [place] [address], [phone], 05/27/2019 09:23:53 05/30/20 19 05/30/2019 PPD (ollie fied prote in deriv ative ), skin test Unknown Analyte 0 Not Available [facility]pcp[facility]r [facility]ila [facility]office [address] [place] [address], [address], 05/27/2019 09:23:53 05/30/20 19 05/30/2019 PPD (ollie fied prote in deriv ative ), skin test Unknown Analyte par pharma ceutic al Not Available [facility]pcp[facility]r [facility]ila [facility]office [address] [place] [address], [phone], 05/27/2019 09:23:53 05/30/20 19 05/30/2019 PPD (ollie fied prote in deriv ative ), skin test Unknown Analyte 0.1ml Not Available Nps_n_ pcp_rha wn_office [address] [place] [address], [phone], 05/27/2019 09:23:53 05/30/20 19 05/30/2019 PPD (ollie fied prote in deriv ative ), skin test Unknown Analyte right forear m Not Available [facility]pcp[facility]r avila w[facility]office [address] [place] [address], [phone], 05/27/2019 09:23:53 05/30/20 19 05/30/2019 PPD (ollie fied prote in deriv ative ), skin test Unknown Analyte 019 Not Available [facility]pcp[facility]r [facility]ila [facility] [address] [place] [address], [phone], 05/27/2019 09:23:53 05/30/20 19 05/30/2019 PPD (ollie fied prote in deriv ative ), skin test Unknown Analyte 9:40 am Not Available [facility]pcp[facility]r [facility]ila [facility] [address] [place] [address], [phone], 05/27/2019 09:23:53 05/30/20 19 05/30/2019 PPD (ollie fied prote in deriv ative ), skin test Unknown Analyte Intrad ermal Not Available [facility]pcp[facility]r [facility]ila [facility]office [address] [place] [address], [phone], 05/27/2019 09:23:53 05/30/20 19 05/30/2019 PPD (ollie fied prote in deriv ative ), skin test Unknown Analyte 2018 Not Available [facility]pcp[facility]r [facility]ila [facility]office [address] [place] [address], [phone], 05/27/2019 09:23:53 05/30/20 19 05/30/2019 PPD (ollie fied prote in deriv ative ), skin test Unknown Analyte 08:54 am Not Available [facility]pcp[facility]r [facility]ila [facility]office [address] [place] [address], [phone], 05/27/2019 09:23:53 05/30/20 19 05/30/2019 PPD (ollie fied prote in deriv ative ), skin test Unknown Analyte negati ve Not Available [facility]pcp[facility]r [facility]ila wn[facility]office [address] [place] [address], [phone], 05/27/2019 09:23:53 05/30/20 19 05/30/2019 PPD (ollie fied prote in deriv ative ), skin test Unknown Analyte 0mm Not Available Nps_n_ pcp_rha wn_office [address] [place] [address], [phone], 05/27/2019 09:23:53 Result Notes None recorded. Problems Name Problem SNOMED Code Status Onset Date Resolution Date Notes Provider Name and Address Organization Details Recorded Time Borderline personality disorder 66074775 Active 2018 JOSE ALFREDO Ibanez [facility], [address], [place], [address], [place] 9 09:26:04 Posttraumati c stress disorder 55373987 Active 2018 JOSE ALFREDO Ibanez [facility], [address], [place], [address], [place] 9 09:26:06 Severe major depression 729985660 Active 2018 JOSE ALFREDO Ibanez [address] [facility], [address], [place], [address], [place] 9 09:26:08 Lopez matta 899852342 Active 2018 JOSE ALFREDO Ibanez [address] [facility], [address], [place], [address], [facility] - [place] 9 09:27:21 Fibromyalgia 337786997 Active 2018 JOSE ALFREDO Ibanez [address] [place] [address], [address], [place], [address], [facility] - [place] 9 09:27:32 Problem Notes None recorded. Medical [...] 9 97.7 [degF] 154.94 cm 28.5 kg/m2 41216.4 5 g 71 /min 97 % 97 % 110 mm[Hg] 70 mm[Hg] Odette Barriga [facility] 9 08:38:11 Date Recorded Body height Body mass index (BMI) Body weight Body temperature Heart rate Oxygen saturation Oxygen saturation in Arterial blood by Pulse oximetry Systolic blood pressure Diastolic blood pressure Provider Name and Address Organization Details Last Updated DateTime 9 154.94 cm 28.7 kg/m2 67989.0 4 g 98.6 [degF] 80 /min 99 % 99 % 100 mm[Hg] 70 mm[Hg] Kathy Chapman [facility] 9 13:45:06 Date Recorded Body height Body mass index (BMI) Body weight Body temperature Heart rate Oxygen saturation Oxygen saturation in Arterial blood by Pulse oximetry Systolic blood pressure Diastolic blood pressure Provider Name and Address Organization Details Last Updated DateTime 9 154.94 cm 28.9 kg/m2 34821.6 3 g 98.9 [degF] 86 /min 98 % 98 % 120 mm[Hg] 82 mm[Hg] Kourtney Garcia [facility] 9 13:34:37 Social History Question Answer Notes LastModified by Organizat ion Details LastModified Time Tobacco Smoking Status Never Smoker Odette swain [facility] 05/27/2019 08:52:51 Do You Have An Advance [...] To Smoke? No Information not available 05/27/2019 How Much Tobacco Do You Smoke? No [...] Functional Status Question Answer Note LastModified by Organizat ion Details LastModified Time What is your level of alcohol consumption? None Information not available 05/27/2019 Do you or have you ever used smokeless tobacco? Never used smokeless tobacco Information not available 07/29/2019 Are you able to walk? YESWOREST Information [...] MDCK, quadrivalent, PF 08/19/2019 completed Not Available [facility] 0 02:46:58 Past Encounters Encounter ID Performer Location Encounter Start Date Encounter Closed Date Diagnosis/Indication Diagnosis SNOMED-CT Code Diagnosis ICD10 Code Diagnosis Note [id number] JOSE ALFREDO Ibanez NPS[facility]PCP [facility] [address] [address] 05/27/2019 08:14:17 05/27/2019 10:03:00 Adult health examination 952052012 Z00.00 Diet and exercise discussed Overweight 196630209 E66 .3 Family his tory of cancer of colon 560850111 Z80.0 Had colonoscop y yesterday Fibromyalgia 654614029 M 79.7 Lower abdominal pain 545 21809 R10.30 Unclear Dx Chiari malformation 2531 29605 Q07.00 Tuberculos is screening 646443834 Z11.1 PPD placed today for [facility] form Severe rajwinder or depression 389446499 F32.2 Requesting records but also starting form for [facility]. Giving 1mon supply of medication . No SI Posttrauma tic stress disorder 40470107 F43.10 Borderline personality disorder 54503970 F60.3 [id number] JOSE ALFREDO Ibanez NPS[facility]PCP [facility] [address] [address] 07/29/2019 13:32:56 07/29/2019 14:00:41 Severe major depression 922257488 F32.2 Requesting records but also starting form for [facility]. Giving 1mon supply of medication . No SI Irritable bowel syndrome 90550585 K58.9 Needs to see GI for fu. Does not appear to be viral or infection [id number] Niru Banks MD NPS[facility]PCP [facility] [address] [place] [phone] 08/19/2019 13:28:47 08/19/2019 14:45:42 Menorrhagia 123196710 N92.0 has collar baster jumpbasting f/u scheduled for 08/29. Needs infl uenza immunization 283507613 Z23 Health Concerns Section Related Observation LastModified by Organization Detai ls LastModified Time None Recorded Concern Status LastModified by Organization Details LastModified Time None Recorded Advance Directives Directive N: Payers Insurance Date Sequence Insurance Name Policy Number Policy Lin Covered Member ID Lin Member ID Guarantor Name 12/12/2019 1 [employer] (MEDICAID REPLACEMENT - HMO) Viomil Delaney [id number] Viomil Dinzey Delaney 02/27/2022 1 [facility] (MEDICAID HMO) [id number] Viomil Delaney [id number] Viomil Dinzey Delaney 09/11/2022 1 [employer] (MEDICAID REPLACEMENT - HMO) Viomil Dinzey Delaney [id number] Viomil Dinzey Delaney Notes Date Note Type Note Provider Name and Address Organization Details Recorded Time 9 text/html Abdominal PainReported bypatient.Location:LLQ; RLQ Quality:cramping Onset/Timing:wax/wane Modifying Factors:nothing gives relief Associated Symptoms:diarrhea;consti pationNotes:Hospitalized 2weeks ago at [facility] for lower abdominal and low back pain. 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 @ kids- 4 and 2yoMoodReported bypatient.Affect:normal affect Sleep:normal sleep Appetite:normal Weight:no weight change Mood Variability:not depressed Concentration/Attention: unchanged [place]: ability to enjoy life, sports, activitiesunchanged Energy Levels:unchanged Homicidal:no thoughts to hurt others Suicidality:no sef-mutilation; no thoughts of suicideNotes:[facility] but unable to setup so returnign to [facility]. Had mental breakdown in Oct- Suicidal and depressed. Dx borderline personality, PTSD, depression Hx benzo abuse Has supportive Has form to be completed for [facility] and drivers permit JOSE ALFREDO Ibanez [address] [facility], [address], [place], [address], [facility] 05/27/2019 09:29:07 9 text/html Abdominal PainReported bypatient.Location:LLQ; RLQ; epigastric Quality:pain;cramping Severity:moderate Onset/Timing:sudden Associated Symptoms:no fever; no chills; no blood in the urine;heartburn;diarrhea ;constipationNotes:Jaredharmeet ar symptoms to 2 month ago when she had colonscopy and hospitalized- found nothing but did get relief from bentyl. Has not seen GI since. Urination is ok. No fever or aches. Getting heart burn at night Patient offered a brassiere cup mold cutter for today's exam. Patient declined brassiere cup mold cutter. Deaf Interpreter's name Relationship to patient: Deaf Interpreter present for: JOSE ALFREDO Ibanez [address] [place] [address], [address], [place], [address], [facility] 07/29/2019 13:59:57 9 text/html has had very heavy bleeding for last 3 days with clots - couldn't get appt with collar baster jumpbasting until 08/29. had to leave work. cramping [...] 3 pads today. Niru Banks MD [address] [facility], [address], [place], [address], [facility] 08/19/2019 13:55:14 OBGyn Episode No OBEpisode recorded.
--- NOTE | 2025-05-27 08:36 | ED_ITS ---
HPI - General Adult General Chief complaint: General Medical Stated complaint: flare up ? Time Seen by Provider: 05/27/25 08:28 Source: patient Mode of arrival: ambulatory Limitations: no limitations History of Present Illness ED Provider: DR. 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 No fever, no chills, +intermittent abdominal cramps with typical for patient presentation. Patient smokes marijuana on daily basis try to alleviate her symptoms with no relief today. No dysuria, no frequency urination Related Data Home Medications ?Medication ?Instructions ?Recorded ?Confirmed buspirone 10 mg tablet 10 mg PO TID PRN anxiety 12/20/24 cyclobenzaprine 10 mg tablet 10 mg PO BEDTIME PRN musc le spasms 07/25/24 12/20/24 Previous Rx's ?Medication ?Instructions ?Recorded aripiprazole 10 mg tablet (Abilify) 10 mg PO BEDTIME # 30 tabs 01/29/23 bupropion HCl 150 mg 24 hr tablet, 150 mg PO QAM #30 t abs 01/29/23 extended release gabapentin 800 mg tablet 800 mg PO TID #90 tabs 01/29 naproxen 500 mg tablet (Naprosyn) 500 mg PO BID #20 ta bs 10/05/24 acetaminophen 500 mg tablet 1,000 mg (2 x 500 mg) PO Q 8H PRN 11/17/24 (Tylenol Extra Strength) pain #30 tabs ibuprofen 600 mg tablet 600 mg PO Q6H PRN pain #30 t abs 11/17/24 tramadol 50 mg tablet 50 mg PO Q12H PRN pain #30 t abs 12/07/24 leg brace #1 ea 12/20/24 morphine 15 mg immediate release 15 mg PO Q8H PRN pain #15 tabs 03/13/25 tablet Allergies Allergy/AdvReac Type Severity Reaction Status Date / Time apple Allergy Throat Verified 05/27/25 08:19 itches Review of Systems 2 Review of Systems: all other systems are reviewed and are negative Constitutional: Reports as per HPI and Reports no additional constitutional complaints Eyes: Reports as per HPI and Reports no additional eye complaints Reports system reviewed and no additional complaints, except as documented Cardiovascular: Reports as per HPI and Reports no additional cardiovascular complaints Respiratory: Reports as per HPI and Reports no additional respiratory complaints Gastrointestinal: Reports as per HPI and Reports no additional gastrointestinal complaints Genitourinary: Reports no additional female genitourinary complaints Musculoskeletal: Reports no additional musculoskeletal complaints Skin/Breast: Reports system reviewed and no additional complaints, except as docu Psychiatric: Reports no additional psychiatric complaints Endocrine: Reports no additional endocrine complaints Hematologic/Lymphatic: Reports no additional hematologic/lymphatic complaints Allergic/Immunologic: Reports no additional allergic/immunologic complaints Reports system reviewed and no additional complaints, except as documented and Reports Abnormal speech present [facility] Past Medical History Medical History PTSD (post-traumatic stress disorder) Anxiety Depression Charcot Leanna Tooth muscular atrophy Family History Family History Mother Colon cancer Social History Social History Household Members: Children Household Members Other:: Pt's son,sister and brother in law Housing: Apartment Alcohol intake: never Patient Tobacco Use Status: Former Tobacco user Tobacco use type: Cigarette Smoked in Last 30 Days: No Second Hand Smoke Exposure: No Use of substances other than those prescribed or required for medical reasons: Yes Substance Use Type: Marijuana Advance Directives: No Advance Directives Information Provided: Yes service: No Sexual orientation: Straight/Heterosexual Physical Exam ED Vital Signs: Vital Signs - 24 hr 05/27/25 08:18 05/27/25 10:30 05/27/25 10:47 Temperature 96.9 F 98.1 F Pulse Rate 81 75 Respiratory Rate 18 16 20 Blood Pressure 146/83 H 111/66 Pulse Oximetry 96 100 Oxygen Delivery Method Room Air Room Air 05/27/25 12:00 Temperature 98.1 F Pulse Rate 69 Respiratory Rate 16 Blood Pressure 125/57 L Pulse Oximetry 99 Oxygen Delivery Method Room Air BMI result Body Mass Index 45.4 Vital signs have been reviewed and appear to be correct. Blood pressure elevated. Heart rate normal. Respiratory rate normal. Temperature normal. Oxygen saturation normal. Appearance: Alert. Oriented X3. No acute distress. Head: Normal external exam. Normocephalic. Atraumatic. No Faulkner signs noted. No raccoon eyes noted Eyes: PERRLA. EOMI. Conjunctiva and sclera normal. Eyelids normal. ENT: TM's Normal. Pharynx normal. Uvula midline. Moist mucous membranes. No trismus noted. No drooling noted. No muffled voice noted. Neck: Normal inspection. Neck supple. FROM. No adenopathy. Thyroid Normal. No meningeal signs. No neck mass noted. CVS: Normal heart rate and rhythm. Heart sound normal. No murmurs noted. Pulses normal throughout. Respiratory: No respiratory distress. Painless inspiration. Breath sounds normal. No wheezes/rales/rhonchi noted. Chest nontender. No accessory muscle usage noted or decreased air movement noted. Abdomen: Soft and nontender. Bowel sounds normal in all 4 quadrants. No distention noted. No organomegaly noted. No visible injury noted. Back: No CVA tenderness. Full range of motion noted. Skin: Skin warm and dry. Normal skin color. Normal skin turgor. No rashes/lesions/lacerations noted. Extremities: No lower extremity edema. Extremities exhibit normal range of motion. Extremities nontender. Neuro: Oriented X 3. Cranial nerve exam: II-XII are grossly intact No motor deficit. No sensory deficit. Reflexes normal. Course Reevaluation(s) Reevaluation #1: CMT neuromuscular disease, presented with acute exacerbation of generalized body pain. Feels better after Dilaudid and Muscle relaxant. will discharge to follow-up with PCP. Time: 12:58 Medications Administered Discontinued Medications Generic Name Dose Route Start Last Admin Trade Name Freq PRN Reason Stop Dose Admin Cyclobenzaprine HCl 10 mg 05/27/25 11:37 05/27/25 11:48 Cyclobenzaprine Hcl 10 Mg Tablet PO 05/27/25 11:38 10 mg ONCE ONE Administration Hydromorphone HCl 1 mg 05/27/25 10:38 05/27/25 10:47 Hydromorphone Hcl 1 Mg/Ml Syringe IVPUSH 05/27/25 10:39 1 mg ONCE ONE Administration Protocol Hydromorphone HCl 1 mg 05/27/25 11:37 05/27/25 11:48 Hydromorphone Hcl 1 Mg/Ml Syringe IVPUSH 05/27/25 11:38 1 mg ONCE ONE Administration Protocol Acetaminophen 1,000 mg in 100 mls @ 400 mls/hr 05/27/25 08:36 05/27/25 10:33 Ofirmev IV 05/27/25 08:50 Infused ONCE ONE Infusion Lactated Ringer's 1,000 mls @ 999 mls/hr 05/27/25 08:45 05/27/25 11:39 Lr IV 05/27/25 09:45 Infused .Q1H1M PATSY Infusion Ketorolac Tromethamine 15 mg 05/27/25 08:36 05/27/25 09:49 Ketorolac Tromethamine 15 Mg/Ml Vial IVPUSH 05/27/25 08:37 15 mg ONCE ONE Administration Medical Decision Making Differential Diagnosis Differential Diagnoses: The differential diagnosis associated with the presentation includes ( CMT disease, electrolyte derangement, severe anemia.) Admission/Observation Consideration of admission/observation: Escalation of care including admission/observation considered Lab Data MDM Lab Attestation statement: I reviewed the patient's lab results. 05/27/25 09:37 05/27/25 09:37 Labs: Lab Results 05/27/25 Range/Units 09:37 WBC 8.6 (4.8-10.8) X10*3/uL RBC 4.27 (4.20-5.50) X10*6/uL Hgb 12.4 (12.0-16.0) g/dl Hct 36.1 L (37.0-47.0) % MCV 84.5 (80.0-98.0) fL MCH 29.0 (27.0-33.0) pg MCHC 34.3 (31.0-35.0) g/dl RDW 13.9 (11.0-16.0) % Plt Count 362 (160-400) X10*3/uL MPV 9.2 L (9.4-12.3) fL Immature Gran % (Auto) 0.2 (0.0-0.4) % Neut % (Auto) 60.1 (45-73) % Lymph % (Auto) 27.7 (20-40) % [place] % (Auto) 9.2 (2-11) % Eos % (Auto) 2.1 (0-4) % Baso % (Auto) 0.7 (0-2) % Lymph # (Auto) 2.4 (1.2-4.9) X10*3/uL [place] # (Auto) 0.8 (0.1-1.2) X10*3/uL Eos # (Auto) 0.2 (0.0-0.4) X10*3/uL Baso # (Auto) 0.1 (0.0-0.2) X10*3/uL Abs Immat Gran (auto) 0.02 (0.00-0.03) X10*3/uL Absolute Neuts (auto) 5.2 (2.0-8.3) x10*3/uL Absolute Nucleated RBC 0.000 (0.0-0.012) X10*3/uL Nucleated RBC % (auto) 0.0 (0.0-0.2) /100WBC ESR 20 (0-20) MM/HR Sodium 137 (135-145) mmol/L Potassium 4.3 (3.3-5.1) mmol/L Chloride 108 (96-108) mmol/L Carbon Dioxide 23 (22-29) mmol/L Anion Gap 10 L (12-20) BUN 10 (9-16) mg/dL Creatinine 0.63 (0.5-1.4) mg/dL Estim Creat Clear Calc 142.3 Estimated GFR > 60 Random Glucose 104 (60-115) mg/dL Calcium 8.6 (8.4-10.2) mg/dL Total Bilirubin 0.6 (0.0-1.0) mg/dL Direct Bilirubin 0.2 (0.0-0.5) mg/dL AST 22 (5-31) U/L ALT 18 (0-31) U/L Alkaline Phosphatase 83 (39-117) U/L Total Creatine Kinase 81 (26-140) U/L Troponin I High Sens < 2.7 (<3.5-17.0) ng/L C-Reactive Protein 0.49 (< or = 0.50) mg/dL Total Protein 7.1 (6.5-8.0) g/dL Albumin 3.9 (3.5-5.0) g/dL Lipase 13 (8-78) U/L Beta HCG, Quant < 2 mIU/mL Urine Color Yellow Urine Appearance Clear Urine pH 8.0 (5.0-9.0) Ur Specific [place] 1.010 (1.005-1.025) Urine Protein Negative (Neg-Trace) mg/dL Urine Glucose (UA) Negative (Negative) mg/dL Urine Ketones Negative (Negative) mg/dL Urine Blood Negative (Negative) Urine Nitrite Negative (Negative) Ur Leukocyte Esterase Negative (Negative) Urine Opiates Screen POSITIVE H (Not Detect) Ur Buprenorphine Scrn Not Detected (Not Detect) ng/mL Ur Oxycodone Screen Not Detected (Not Detect) ng/mL Urine Methadone Screen Not Detected (Not Detect) ng/mL Urine Fentanyl Screen Not Detected (Not Detect) Ur Barbiturates Screen Not Detected (Not Detect) Ur Phencyclidine Scrn Not Detected (Not Detect) Ur Amphetamines Screen Not Detected (Not Detect) U Benzodiazepines Scrn Not Detected (Not Detect) Urine Cocaine Screen Not Detected (Not Detect) U Marijuana (THC) Screen POSITIVE H (Not Detect) Discharge Plan 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 bupropion HCl 150 mg tablet extended release 24 hr 150 mg PO QAM Qty: 30 0RF gabapentin 800 mg tablet 800 mg PO TID Qty: 90 0RF ibuprofen 600 mg tablet 600 mg PO Q6H PRN (Reason: pain) Qty: 30 0RF acetaminophen [Tylenol Extra Strength] 500 mg tablet 1,000 mg PO Q8H PRN (Reason: pain) Qty: 30 0RF morphine 15 mg tablet 15 mg PO Q8H PRN (Reason: pain) Qty: 15 0RF Rx Instructions: Partial Fill upon patient request. cyclobenzaprine 10 mg tablet 10 mg PO BEDTIME PRN (Reason: muscle spasms) buspirone 10 mg tablet 10 mg PO TID PRN (Reason: anxiety) naproxen [Naprosyn] 500 mg tablet 500 mg PO BID Qty: 20 0RF tramadol 50 mg tablet 50 mg PO Q12H PRN (Reason: pain) Qty: 30 0RF (DME) leg brace Misc See Rx Instructions .Route Qty: 1 0RF Rx Instructions: As directed Referrals: Merly Carrington MD [Primary Care Provider, Internal Medicine] Print Language: Khmer
[2025-05-27 09:44] LABS: MANUAL DIFF FLAG NO
[2025-05-27 09:45] LABS: Basophils Absolute Auto 0.1 X10*3/uL (0.0-0.2); Basophils Percent Auto 0.7 % (0-2); Eosinophils Absolute Auto 0.2 X10*3/uL (0.0-0.4); Eosinophils Percent Auto 2.1 % (0-4); Hematocrit 36.1 % (37.0-47.0); Hemoglobin 12.4 g/dl (12.0-16.0); Imm Gran Abs Auto 0.02 X10*3/uL (0.00-0.03); Imm Gran Pct Auto 0.2 % (0.0-0.4); Lymphocytes Absolute Auto 2.4 X10*3/uL (1.2-4.9); Lymphocytes Percent Auto 27.7 % (20-40); Mean Corpuscular HGB Conc 34.3 g/dl (31.0-35.0); Mean Corpuscular Volume 84.5 fL (80.0-98.0); Mean Platelet Volume 9.2 fL (9.4-12.3); Monocytes Absolute Auto 0.8 X10*3/uL (0.1-1.2); Monocytes Percent Auto 9.2 % (2-11); Neutrophils Absolute Auto 5.2 x10*3/uL (2.0-8.3); Neutrophils Percent Auto 60.1 % (45-73); Platelet Count 362 X10*3/uL (160-400); Red Blood Count 4.27 X10*6/uL (4.20-5.50); Red Cell Distribution Width 13.9 % (11.0-16.0); White Blood Count 8.6 X10*3/uL (4.8-10.8)
[2025-05-27 09:47] LABS: Appearance Urine Clear; Color Urine Yellow; Glucose Urine UA Negative (Negative); Leukocyte Esterase Urine Negative (Negative); Nitrite Urine Negative (Negative); Urine Blood Negative (Negative); Urine Ketones Negative (Negative); Urine Protein Negative (Neg-Trace)
[2025-05-27] MEDS: Ketorolac Tromethamine 15 MG/ML VIAL IVPUSH (09:49)
[2025-05-27] MEDS: Lactated Ringers 1,000 ML 999 ML IV (09:49)
[2025-05-27] MEDS: Acetaminophen 1,000 MG/100 ML PIGGYBACK 400 MG IV (09:49)
[2025-05-27 09:58] LABS: Amphetamine Screen Urine Not Detected (Not Detect); Barbiturates, Urine Not Detected (Not Detect); Benzodiazepines Screen Urine Not Detected (Not Detect); Buprenorphine Scr Not Detected (Not Detect); Cannabinoid Screen Urine POSITIVE (Not Detect); Cocaine Screen Urine Not Detected (Not Detect); Fentanyl, urine Not Detected (Not Detect); Methadone Screen, Urine Not Detected (Not Detect); Opiate Screen Urine POSITIVE (Not Detect); Oxycodone Screen Urine Not Detected (Not Detect); Phencyclidine Screen Urine Not Detected (Not Detect)
[2025-05-27 10:16] LABS: Troponin-I High Sensitivity < 2.7 ng/L (<3.5-17.0)
[2025-05-27 10:17] LABS: Alanine Aminotransferase 18 U/L (0-31); Albumin Level 3.9 g/dL (3.5-5.0); Alkaline Phosphatase 83 U/L (39-117); Anion Gap 10 (12-20); Aspartate Amino Transferase 22 U/L (5-31); Bilirubin Direct 0.2 mg/dL (0.0-0.5); Bilirubin Total 0.6 mg/dL (0.0-1.0); Blood Urea Nitrogen 10 mg/dL (9-16); C Reactive Protein 0.49 mg/dL (< or = 0.50); Calcium 8.6 mg/dL (8.4-10.2); Carbon Dioxide 23 mmol/L (22-29); Chloride 108 mmol/L (96-108); Creatinine Clr Calc Pharmacy 142.3; Estimated Glomerular Filt Rate > 60; Glucose Random 104 mg/dL (60-115); HCG Quantitative < 2 mIU/mL; Lipase 13 U/L (8-78); Potassium 4.3 mmol/L (3.3-5.1); Sodium 137 mmol/L (135-145); Total Protein 7.1 g/dL (6.5-8.0)
[2025-05-27 10:24] LABS: Erythrocyte Sedimentation Rate 20 MM/HR (0-20)
[2025-05-27 10:30] VITALS: BP 111/66; PULSE 75; RESP 16; TEMP 36.7; O2SAT 100
[2025-05-27 10:47] VITALS: RESP 20
[2025-05-27] MEDS: HYDROmorphone HCl 1 MG/ML SYRINGE IVPUSH ×2 (10:47→11:48)
[2025-05-27] MEDS: Cyclobenzaprine HCl 10 MG TABLET PO (11:48)
[2025-05-27 12:00] VITALS: BP 125/57; PULSE 69; RESP 16; TEMP 36.7; O2SAT 99
[2025-05-27 13:05] VITALS: BP 125/57; PULSE 69; RESP 16; TEMP 36.7; O2SAT 99
== END 2025-05-27 13:06 | disposition home or self-care (01) ==
PROVIDERS: Emergency Provider Emergency Medicine; PCP Internal Medicine
DX: G60.0 Hereditary motor and sensory neuropathy (principal); R51.9 Headache, unspecified; M79.18 Myalgia, other site; I49.8 Other specified cardiac arrhythmias; R25.2 Cramp and spasm; R11.0 Nausea; R10.2 Pelvic and perineal pain; Z79.899 Other long term (current) drug therapy; Z87.891 Personal history of nicotine dependence
CPT/HCPCS: 36415; 80048; 80076; 80307; 81003; 82550; 83690; 84484; 84702; 85025; 85652; 86140; 93005; 96361; 96374; 96375; 96376; 99285; J0131; J1171; J1885; J7120

== ENCOUNTER → 2025-05-27 08:33 | Outpatient (BNV) | payer SELFPAY | PROVIDERS: Emergency Provider Emergency Medicine; PCP Internal Medicine; Visit Provider Internal Medicine | DX: I49.9 Cardiac arrhythmia, unspecified (principal) | CPT/HCPCS: 93010 ==

== ENCOUNTER 2025-05-30 08:39 | Emergency (ER) | payer OTHER, SELFPAY ==
--- NOTE | ~2025-05-30 | CT_ITS ---
EXAMINATION: CT ABDOMEN PELVIS WITH IV CONTRAST HISTORY: abd pain N/V/D COMPARISON: Comparison is made with the prior examination dated 10/04/2024. TECHNIQUE: CT scan of the abdomen and pelvis was performed following administration of 85 mL Omnipaque 350 using standard departmental protocol. Coronal and sagittal reformatted images were generated and reviewed. Oral contrast material was not administered at the request of the referring physician. This CT exam was performed with one or more of the following dose reduction techniques: automated exposure control, adjustment of the mA and/or kV according to patient size, use of iterative reconstruction technique. DLP: 784 mGy-cm FINDINGS: LOWER CHEST: The visualized lung bases are clear. There is no pleural effusion. CARDIOVASCULATURE: The heart is normal in size. There is no pericardial effusion. LIVER: The liver is normal in size and contour. No liver mass is identified. The hepatic and portal veins are patent. GALLBLADDER / BILE DUCTS: The gallbladder is unremarkable. There is no intra or extrahepatic biliary ductal dilatation. SPLEEN: The spleen is normal in size. No focal splenic lesion is identified. PANCREAS: The pancreas is unremarkable in appearance. ADRENAL GLANDS: Within normal limits. KIDNEYS/RETROPERITONEUM: No renal calculi are identified. There is no hydronephrosis. There is a 10 mm probable cyst in the interpolar region of the left kidney. LYMPH NODES: No abdominal or pelvic lymphadenopathy. VASCULATURE: The abdominal aorta is normal in caliber. MESENTERY/PERITONEUM: No free fluid. No masses. There is no free intraperitoneal gas. STOMACH: The stomach is collapsed, limiting evaluation. SMALL BOWEL: The small bowel is normal in caliber. COLON: The colon is largely collapsed. APPENDIX: Normal. URINARY BLADDER/PELVIC ORGANS: The urinary bladder is collapsed, limiting evaluation. The uterus is unremarkable. There are bilateral ovarian follicles an involuting follicle on the left. BONES / SOFT TISSUES: No suspicious bony or soft tissue abnormalities. CT/CT abdomen pelvis w IV con IMPRESSION: No acute abnormality is identified. Incidental findings as discussed above. Electronically signed by: Cas Cesar MD 05/30/2025 01:57 PM EDT
[2025-05-30 08:41] VITALS: BP 146/83; PULSE 84; RESP 16; TEMP 36.8; O2SAT 98; BMI 45.3
--- OUTSIDE RECORDS SUMMARY | 2025-05-30 09:14 | XMS_ITS | Data Portability ---
Author Organization [facility], Pe nnjaylan, [facility]_ Stefan Address [address] [place] [id number] Assessment No assessment recorded. Plan of Treatment Reminders Order Date Submit Date Provider Last Modified By Organization Details Last Modified Time Details Appointments None recorded. Lab CBC w/ auto diff 2018 019 [email or web address] [facility], [address] [place] [address], [id number], 0 14:32:12 beta-HCG, qualitativ e, serum or plasma 2018 019 [facility], [address] [place] [address], [id number], 0 14:32:12 PPD (purified protein derivative ), skin test 2018 019 UDAY [facility]pcp[facility] w[facility]office, [address] [place], [address], 9 10:04:36 Referral gastroente rologist referral 2018 019 [email or web address] Not available 9 07:24:03 rheumatolo gist referral 2018 019 [email or web address] Gutierrez Krishnan MD, [address] [place], [address], 9 07:24:03 Procedures None recorded. Surgeries None recorded. Imaging None recorded. Medication Orders dicyclomin e 10 mg capsule 2018 019 INTERFACE [facility], [address] [place] [address], [id number], 9 13:59:54 famotidine 20 mg tablet 2018 019 [email or web address] [facility]58, [address] [place] [address], [id number], 9 13:32:44 fluoxetine 20 mg capsule 2018 019 [email or web address] [facility], [address] [place] [address], [id number], 9 13:32:58 buspirone 10 mg tablet 2018 019 INTERFACE [facility]31, [address] [place] [address], [id number], 9 13:59:48 bupropion HCl XL 150 mg 24 hr tablet, extended release 2018 019 INTERFACE [facility]3370, [address] [place] [address], [id number], 9 13:59:46 buspirone 10 mg tablet 2018 019 INTERFACE [facility] #98786, [address] [place] [address], [id number], 9 09:28:31 Wellbutrin SR 150 mg tablet, 12 hr sustained- release 2018 019 [facility]13180, [address] [place] [address], [id number], 9 13:42:42 fluoxetine 20 mg capsule 2018 019 [email or web address] [facility]04320, [address] [place] [address], [id number], 9 13:32:58 Patient TargetsNo targets recorded. Patient Instructions Encounter Date Encounter Id Patient Instructions Last Modified By Organization Details Last Modified Time 05/27/2019 [id number] eating healthy foods: care instructions [email or web address] Not available 05/27/2019 09:28:26 08/19/2019 [id number] call answering service over weekend if feel worse, you develop fevers, nausea or vomiting, if pain gets worse or if bleeding does not continue to lessen. f/u Thursday with Allan for next steps. 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 Referral for Fibromyalgia Referring Physician: Allan Connelly [facility] Medicine, Encounter Date: 05/27/2019 Lithographer Apprentice Referral for Lower abdominal pain Referring Physician: Allan Connelly [facility] Medicine, Encounter Date: 05/27/2019 Results Created Date Observation Date Name Description Value Unit Range Abnormal Flag Note LastModifiedBy Organization Detail LastModifiedTime 05/30/2005/30/2019 PPD (ollie fied prote in deriv ative ), skin test Unknown Analyte Unknow n Not Available [facility]ps[facility]pcp[facility]r avila wn[facility]office [address] [place] [address], [phone], 05/27/2019 09:23:53 05/30/20 19 05/30/2019 PPD (ollie fied prote in deriv ative ), skin test Unknown Analyte Unknow n Not Available [facility]pcp[facility]r avila wn[facility]office [address] [place] [address], [phone], 05/27/2019 09:23:53 05/30/20 19 05/30/2019 PPD (ollie fied prote in deriv ative ), skin test Unknown Analyte [id number] Not Available Nps_n_ pcp_rha wn_office [address] [place] [address], [phone], 05/27/2019 09:23:53 05/30/20 19 05/30/2019 PPD (ollie fied prote in deriv ative ), skin test Unknown Analyte 0 Not Available [facility]ps[facility]pcp[facility]r avila wn[facility]office [address] [place] [address], [phone], 05/27/2019 09:23:53 05/30/20 19 05/30/2019 PPD (ollie fied prote in deriv ative ), skin test Unknown Analyte par pharma ceutic al Not Available Nps[facility]n_pcp_r avila wn_office [address] [place] [address], [phone], 05/27/2019 09:23:53 05/30/20 19 05/30/2019 PPD (ollie fied prote in deriv ative ), skin test Unknown Analyte 0.1ml Not Available Nps_n_ pcp_rha wn_office [address] [place] [address], [phone], 05/27/2019 09:23:53 05/30/20 19 05/30/2019 PPD (ollie fied prote in deriv ative ), skin test Unknown Analyte right forear m Not Available [facility]ps[facility]pcp[facility]r avila wn[facility]office [address] [place] [address], [phone], 05/27/2019 09:23:53 05/30/20 19 05/30/2019 PPD (ollie fied prote in deriv ative ), skin test Unknown Analyte 019 Not Available [facility]ps[facility]pcp[facility]r avila wn[facility]office [address] [place] [address], [phone], 05/27/2019 09:23:53 05/30/20 19 05/30/2019 PPD (ollie fied prote in deriv ative ), skin test Unknown Analyte 9:40 am Not Available [facility]pcp[facility]r avila wn[facility]office [address] [place] [address], [phone], 05/27/2019 09:23:53 05/30/20 19 05/30/2019 PPD (ollie fied prote in deriv ative ), skin test Unknown Analyte Intrad ermal Not Available [facility]ps[facility]pcp[facility]r avila wn[facility]office [address] [place] [address], [phone], 05/27/2019 09:23:53 05/30/20 19 05/30/2019 PPD (ollie fied prote in deriv ative ), skin test Unknown Analyte 2018 Not Available [facility]ps[facility]pcp[facility]r avila wn[facility]office [address] [place] [address], [phone], 05/27/2019 09:23:53 05/30/20 19 05/30/2019 PPD (ollie fied prote in deriv ative ), skin test Unknown Analyte 08:54 am Not Available [facility]ps[facility]pcp[facility]r avila wn[facility]office [address] [place] [address], [phone], 05/27/2019 09:23:53 05/30/20 19 05/30/2019 PPD (ollie fied prote in deriv ative ), skin test Unknown Analyte negati ve Not Available [facility]ps[facility]pcp[facility]r avila wn[facility]office [address] [place] [address], [phone], 05/27/2019 09:23:53 05/30/20 19 05/30/2019 PPD (ollie fied prote in deriv ative ), skin test Unknown Analyte 0mm Not Available Nps_n_ pcp_rha wn_office [address] [place] [address], [phone], 05/27/2019 09:23:53 Result Notes None recorded. Problems Name Problem SNOMED Code Status Onset Date Resolution Date Notes Provider Name and Address Organization Details Recorded Time Borderline personality disorder 25254513 Active 2018 JOSE ALFREDO Ibanez [employer] [facility], [address], [place], [address], [place] [facility] [place] 9 09:26:04 Posttraumati c stress disorder 60448180 Active 2018 JOSE ALFREDO Ibanez [employer] [facility], [address], [place], [address], [place] 9 09:26:06 Severe major depression 602678330 Active 2018 JOSE ALFREDO Ibanez [address] [facility], [address], [place], [address], [place] 9 09:26:08 Lopez matta 778165367 Active 2018 JOSE ALFREDO Ibanez [address] [facility], [address], [place], [address], [facility] - [place] [facility] [place] 9 09:27:21 Fibromyalgia 244513301 Active 2018 JOSE ALFREDO Ibanez [address] [place] [address], [address], [place], [address], [facility] - [place] [facility] [place] 9 09:27:32 Problem Notes None recorded. Medical [...] 9 97.7 [degF] 154.94 cm 28.5 kg/m2 40070.4 5 g 71 /min 97 % 97 % 110 mm[Hg] 70 mm[Hg] Odette Barriga [facility] 9 08:38:11 Date Recorded Body height Body mass index (BMI) Body weight Body temperature Heart rate Oxygen saturation Oxygen saturation in Arterial blood by Pulse oximetry Systolic blood pressure Diastolic blood pressure Provider Name and Address Organization Details Last Updated DateTime 9 154.94 cm 28.7 kg/m2 66359.0 4 g 98.6 [degF] 80 /min 99 % 99 % 100 mm[Hg] 70 mm[Hg] Kathy Chapman [facility] 9 13:45:06 Date Recorded Body height Body mass index (BMI) Body weight Body temperature Heart rate Oxygen saturation Oxygen saturation in Arterial blood by Pulse oximetry Systolic blood pressure Diastolic blood pressure Provider Name and Address Organization Details Last Updated DateTime 9 154.94 cm 28.9 kg/m2 54857.6 3 g 98.9 [degF] 86 /min 98 % 98 % 120 mm[Hg] 82 mm[Hg] Kourtney Garcia [facility] 9 13:34:37 Social History Question Answer Notes LastModified by Organizat ion Details LastModified Time Tobacco Smoking Status Never Smoker Odette swain [facility] 05/27/2019 08:52:51 Do You Have An [...] MDCK, quadrivalent, PF 08/19/2019 completed Not Available [facility] 0 02:46:58 Past Encounters Encounter ID Performer Location Encounter Start Date Encounter Closed Date Diagnosis/Indication Diagnosis SNOMED-CT Code Diagnosis ICD10 Code Diagnosis Note [id number] JOSE ALFREDO Ibanez NPS_N_PCP [facility] [address] [phone] 05/27/2019 08:14:17 05/27/2019 10:03:00 Adult health examination 352021886 Z00.00 Diet and exercise discussed Overweight 509499231 E66 .3 Family his tory of cancer of colon 573463985 Z80.0 Had colonoscop y yesterday Fibromyalgia 747145882 M 79.7 Lower abdominal pain 545 71930 R10.30 Unclear Dx Chiari malformation 2531 54766 Q07.00 Tuberculos is screening 602598991 Z11.1 PPD placed today for [facility] form Severe rajwinder or depression 255481563 F32.2 Requesting records but also starting form for [facility]. Giving 1mon supply of medication . No SI Posttrauma tic stress disorder 13501405 F43.10 Borderline personality disorder 30960654 F60.3 [id number] JOSE AFLREDO Ibanez NPS_N_PCP [facility] [address] [address] 07/29/2019 13:32:56 07/29/2019 14:00:41 Severe major depression 212289888 F32.2 Requesting records but also starting form for [facility]. Giving 1mon supply of medication . No SI Irritable bowel syndrome 91186949 K58.9 Needs to see GI for fu. Does not appear to be viral or infection [id number] Niru Banks MD NPS[facility]PCP [facility] [address] [place] [phone] 08/19/2019 13:28:47 08/19/2019 14:45:42 Menorrhagia 585164323 N92.0 has sharepoint net developer f/u scheduled for 08/29. Needs infl uenza immunization 297929014 Z23 Health Concerns Section Related Observation LastModified by Organization Detai ls LastModified Time None Recorded Concern Status LastModified by Organization Details LastModified Time None Recorded Advance Directives Directive N: Payers Insurance Date Sequence Insurance Name Policy Number Policy Lin Covered Member ID Lin Member ID Guarantor Name 12/12/2019 1 [employer] (MEDICAID REPLACEMENT - HMO) Viomil Delaney [id number] Viomil Dinzey Delaney 02/27/2022 1 [facility] (MEDICAID HMO) [id number] Viomil Delaney [id number] Viomil Dinzey Delaney 09/11/2022 1 [employer] (MEDICAID REPLACEMENT - HMO) Viomil Dinzey Delaney [id number] Viomil Dinzey Delaney Notes Date Note Type Note Provider Name and Address Organization Details Recorded Time 9 text/html Abdominal PainReported bypatient.Location:LLQ; RLQ Quality:cramping Onset/Timing:wax/wane Modifying Factors:nothing gives relief Associated Symptoms:diarrhea;consti pationNotes:Hospitalized 2weeks ago at [facility] for lower abdominal and low back [...] Safety:working smoke/CO detectors; use of seatbeltsNotes: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 @ kids- 4 and 2yoMoodReported bypatient.Affect:normal affect Sleep:normal sleep Appetite:normal Weight:no weight change Mood Variability:not depressed Concentration/Attention: unchanged [place]: ability to enjoy life, sports, activitiesunchanged Energy Levels:unchanged Homicidal:no thoughts to hurt others Suicidality:no sef-mutilation; no thoughts of suicideNotes:[facility] but unable to setup so returnign to [facility]. Had mental breakdown in Oct- Suicidal and depressed. Dx borderline personality, PTSD, depression Hx benzo abuse Has supportive Has form to be completed for [facility] and drivers permit JOSE ALFREDO Ibanez [address] [facility], [address], [place], [address], [facility] 05/27/2019 09:29:07 9 text/html Abdominal PainReported [...] heart burn at night Patient offered a dialysis tech for today's exam. Patient declined dialysis tech. 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 had to leave work. cramping [...] 3 pads today. Niru Banks MD [address] [facility], [address], [place], [address], [facility] 08/19/2019 13:55:14 OBGyn Episode No OBEpisode recorded.
--- OUTSIDE RECORDS SUMMARY | 2025-05-30 09:14 | XMS_ITS | Clinical Summary ---
Author Organization [facility] ity Address [address] [place] [address] Care Team Providers Care Log Rafter Name Role Phone Unavailable Primary Care Provider [...]
--- OUTSIDE RECORDS SUMMARY | 2025-05-30 09:14 | XMS_ITS | Patient Health Record ---
Author Organization [facility] Address [address] [place] [address] Care Team Providers Care Nascar Racer Name Role Phone Merly Carrington Primary Care Provider Unavailab Cas Bell Unavailable [phone] Allergies No Known Allergies Reason For Referral Referring Provider First Name Merly Referring Provider Last Name Charissa Referring Provider Speciality Internal M edicine Referred Organization [facility] Referred Provider Cas Michel Referred Address [address],[place], [place],[address], Referred Provider Specialty Gastroentero logy General Notes Amalia Miranda 024 02:55:14 PM EDT > requested a [facility] referral from Dr. Carrington's office for colon with Dr. Michel on [phone] Referral Priority Routine Medications Medication SIG (Take, [...] Problem Screening for malignant neoplasm of colon (291209547) Encounter for screening for malignant neoplasm of colon (Z12.11) Active confirmed Problem Pre-procedure evaluation check (869159696) Encounter for other preprocedural examination (Z01.818) Active confirmed Problem Family history o f colon cancer in mother (Z80.0) Active confirmed Encounters Encounter Location Date Provider Diagnosis [facility] [address] [place] [id number] 08/29/2024 Cas Michel [facility] [address] [place] [phone] 01/04/2025 Cas Michel Plan Of Treatment Future Test Test Name Order Date COLONOSCOPY 05/05/2024 Insurance Providers Payer Name Payer Address Payer Phone Subscriber Number Group Number Insured Name Patient Relationship to Insured Coverage Start Date Coverage End Date MEDICAID OF [facility] [address] [place] [phone] [id number] ROBY BARAJAS Self - patient is the insured Medical (General) History Medical History History ICD Code Denies [place],DM,CVA,Lung disease,renal dise ase Charcot Leanna Tooth disease--affects leg s, hands, and balance Depression/PTSD Surgical History Surgery Date(Month/Year)
[2025-05-30 10:45] LABS: MANUAL DIFF FLAG NO
[2025-05-30 10:47] LABS: Hematocrit 36.9 % (37.0-47.0); Hemoglobin 12.5 g/dl (12.0-16.0); Imm Gran Abs Auto 0.02 X10*3/uL (0.00-0.03); Imm Gran Pct Auto 0.2 % (0.0-0.4); Lymphocytes Absolute Auto 2.2 X10*3/uL (1.2-4.9); Mean Corpuscular HGB Conc 33.9 g/dl (31.0-35.0); Mean Corpuscular Hemoglobin 28.7 pg (27.0-33.0); Mean Corpuscular Volume 84.6 fL (80.0-98.0); NRBC Abs Auto 0.000 X10*3/uL (0.0-0.012); NRBC Pct Auto 0.0 /100WBC (0.0-0.2); Platelet Count 352 X10*3/uL (160-400); Red Blood Count 4.36 X10*6/uL (4.20-5.50); White Blood Count 9.3 X10*3/uL (4.8-10.8)
[2025-05-30 11:02] LABS: Alanine Aminotransferase 14 U/L (0-31); Albumin Level 4.0 g/dL (3.5-5.0); Alkaline Phosphatase 83 U/L (39-117); Anion Gap 13 (12-20); Aspartate Amino Transferase 17 U/L (5-31); Blood Urea Nitrogen 11 mg/dL (9-16); Calcium 9.2 mg/dL (8.4-10.2); Carbon Dioxide 23 mmol/L (22-29); Chloride 105 mmol/L (96-108); Creatinine Clr Calc Pharmacy 127.8; Estimated Glomerular Filt Rate > 60; Magnesium 1.9 mg/dL (1.6-2.6); Potassium 4.1 mmol/L (3.3-5.1); Sodium 137 mmol/L (135-145); Total Protein 7.2 g/dL (6.5-8.0)
[2025-05-30 11:12] LABS: Troponin-I High Sensitivity < 2.7 ng/L (<3.5-17.0)
[2025-05-30 11:32] LABS: Appearance Urine Clear; Glucose Urine UA Negative (Negative); PH 6.5 (5.0-9.0); Specific Gravity - Urine 1.025 (1.005-1.025); UMIC TRIGGER UACC YES
[2025-05-30 12:15] LABS: UPreg QC Valid YES
[2025-05-30 12:24] VITALS: BP 125/73; PULSE 78; RESP 18; O2SAT 99
--- NOTE | 2025-05-30 12:37 | ED.NAVMDI ---
HPI - Nausea/Vomiting/Diarrhea General Chief complaint: Nausea/Vomiting/Diarrhea Stated complaint: Flu Symptoms Time Seen by Provider: 05/30/25 08:53 History of Present Illness HPI Narrative: Patient 35-year-old with a history charcoal Leanna tooth presents today with having abdominal pain nausea vomiting diarrhea generalized malaise no abdominal surgery done in the past. Patient from home. Diarrhea is brown in color. Vomiting mostly food. Related Data Home Medications ?Medication ?Instructions ?Recorded ?Confirmed buspirone 10 mg tablet 10 mg PO TID PRN anxiety 07/25/24 12/20/24 cyclobenzaprine 10 mg tablet 10 mg PO BEDTIME PRN muscle spasms 07/25/24 12/20/24 Previous Rx's ?Medication ?Instructions ?Recorded aripiprazole 10 mg tablet (Abilify) 10 mg PO BEDTIME #30 tabs 01/29/23 bupropion HCl 150 mg 24 hr tablet, 150 mg PO QAM #30 tabs 01/29/23 extended release gabapentin 800 mg tablet 800 mg PO TID #90 tabs 01/29/23 naproxen 500 mg tablet (Naprosyn) 500 mg PO BID #20 tabs 10/05/24 acetaminophen 500 mg tablet 1,000 mg (2 x 500 mg) PO Q8H PRN 11/17/24 (Tylenol Extra Strength) pain #30 tabs ibuprofen 600 mg tablet 600 mg PO Q6H PRN pain #30 tabs 11/17/24 tramadol 50 mg tablet 50 mg PO Q12H PRN pain #30 tabs 12/07/24 leg brace #1 ea 12/20/24 morphine 15 mg immediate release 15 mg PO Q8H PRN pain #15 tabs 03/13/25 tablet ondansetron 4 mg disintegrating 4 mg PO TID PRN nausea and 05/30/25 tablet vomiting 5 days #10 tabs oxycodone 5 mg tablet 5 mg PO Q8H PRN pain #7 tabs 05/30/25 Allergies Allergy/AdvReac Type Severity Reaction Status Date / Time apple Allergy Throat Verified 05/30/25 08:43 itches Review of Systems Review of Systems: Positive nausea vomiting diarrhea PMFSH Past Medical History Attestation statement: The following information was validated with the patient. Medical History PTSD (post-traumatic stress disorder) Anxiety Depression Charcot Leanna Tooth muscular atrophy Family History Family History Mother Colon cancer Social History Social History Household Members: Children Household Members Other:: Pt's son,sister and brother in law Housing: Apartment Alcohol intake: never Patient Tobacco Use Status: Former Tobacco user Tobacco use type: Cigarette Smoked in Last 30 Days: Yes Second Hand Smoke Exposure: No Substance Use Type: Marijuana Advance Directives: No Advance Directives Information Provided: No Do you have a plan to hurt others: No Plan Patient : No service: No Sexual orientation: Straight/Heterosexual Physical Exam Vital Signs: Vital Signs: Last Vital Signs Temp 98.1 F 05/30/25 14:06 Pulse 68 05/30/25 14:06 Resp 14 05/30/25 14:06 BP 120/57 L 05/30/25 14:06 Pulse Ox 99 05/30/25 14:06 O2 Del Method Room Air 05/30/25 14:06 BMI result Body Mass Index 45.3 Appearance: Alert. Oriented X3. No acute distress. Eyes: Pupils equal, round and reactive to light. ENT: Pharynx normal. Neck: Normal inspection. Neck supple. No lymph nodes noted. No crepitus CVS: Normal heart rate and rhythm. Pulses normal. Normal S1 and S2 Respiratory: No respiratory distress. Breath sounds normal. No Wheezing. No rales Abdomen: Soft and nontender. No rigidity. No distention. good BS x4 Skin: Skin warm and dry. Normal skin color. Normal skin turgor. Extremities: No lower extremity edema. Neurovascular intact to all extremities. No Lacerations. No Rash Neuro: Oriented X 3. No motor deficit. No sensory deficit. Moving all extermities. No slurred speech Medications Administered Discontinued Medications Generic Name Dose Route Start Last Admin Trade Name Freq PRN Reason Stop Dose Admin Cyclobenzaprine HCl 10 mg 05/30/25 13:35 05/30/25 13:50 Cyclobenzaprine Hcl 10 Mg Tablet PO 05/30/25 13:36 10 mg ONCE ONE Administration Hydromorphone HCl 1 mg 05/30/25 12:09 05/30/25 12:16 Hydromorphone Hcl 1 Mg/Ml Syringe IVPUSH 05/30/25 12:10 1 mg ONCE ONE Administration Protocol Hydromorphone HCl 1 mg 05/30/25 14:48 05/30/25 16:03 Hydromorphone Hcl 1 Mg/Ml Syringe IVPUSH 05/30/25 14:49 1 mg ONCE ONE Administration Protocol Sodium Chloride 1,000 mls @ 999 mls/hr 05/30/25 12:15 05/30/25 13:50 Ns IV 05/30/25 13:15 Infused .Q1H1M PATSY Infusion Iohexol 100 ml 05/30/25 13:24 05/30/25 13:25 Iohexol 350 Mg/Ml 100 Ml Infus..Btl IV 05/30/25 13:25 85 ml ONCE ONE Administration Ondansetron HCl 4 mg 05/30/25 12:10 05/30/25 12:16 Ondansetron Hcl 4 Mg/2 Ml Vial IVPUSH 05/30/25 12:11 4 mg ONCE ONE Administration Medical Decision Making Medical Decision Making [facility] Narrative: Patient is 35 years old presents today with having abdominal pain diffuse. Has a history of chronic pain. Her test was negative no related issue. White count is normal. No significant shift. Electrolytes are normal. Normal kidney function normal LFTs. Urine showed no signs of infection. CT scan of the abdomen pelvis was done. My interpretation showed no obstruction no abscess no perforation had a history of the same patient is given a few doses of pain medication with moderate relief. Will discharge patient home. Close follow-up on an outpatient basis. Differential Diagnosis Differential Diagnoses: The differential diagnosis associated with the presentation includes Kidney stone, related issue, nonspecific abdominal pain, biliary issues Admission/Observation Consideration of admission/observation: Escalation of care including admission/observation considered Lab Data [facility] Lab Attestation statement: I reviewed the patient's lab results. 05/30/25 10:39 05/30/25 10:39 Labs: Lab Results 05/30/25 05/30/25 Range/Units 10:39 11:26 WBC 9.3 (4.8-10.8) X10*3/uL RBC 4.36 (4.20-5.50) X10*6/uL Hgb 12.5 (12.0-16.0) g/dl Hct 36.9 L (37.0-47.0) % MCV 84.6 (80.0-98.0) fL MCH 28.7 (27.0-33.0) pg MCHC 33.9 (31.0-35.0) g/dl RDW 13.7 (11.0-16.0) % Plt Count 352 (160-400) X10*3/uL MPV 9.0 L (9.4-12.3) fL Immature Gran % (Auto) 0.2 (0.0-0.4) % Neut % (Auto) 66.1 (45-73) % Lymph % (Auto) 23.7 (20-40) % [place] % (Auto) 8.3 (2-11) % Eos % (Auto) 1.3 (0-4) % Baso % (Auto) 0.4 (0-2) % Lymph # (Auto) 2.2 (1.2-4.9) X10*3/uL [place] # (Auto) 0.8 (0.1-1.2) X10*3/uL Eos # (Auto) 0.1 (0.0-0.4) X10*3/uL Baso # (Auto) 0.0 (0.0-0.2) X10*3/uL Abs Immat Gran (auto) 0.02 (0.00-0.03) X10*3/uL Absolute Neuts (auto) 6.2 (2.0-8.3) x10*3/uL Absolute Nucleated RBC 0.000 (0.0-0.012) X10*3/uL Nucleated RBC % (auto) 0.0 (0.0-0.2) /100WBC ESR 21 H (0-20) MM/HR Sodium 137 (135-145) mmol/L Potassium 4.1 (3.3-5.1) mmol/L Chloride 105 (96-108) mmol/L Carbon Dioxide 23 (22-29) mmol/L Anion Gap 13 (12-20) BUN 11 (9-16) mg/dL Creatinine 0.70 (0.5-1.4) mg/dL Estim Creat Clear Calc 127.8 Estimated GFR > 60 Random Glucose 101 (60-115) mg/dL Calcium 9.2 D (8.4-10.2) mg/dL Magnesium 1.9 (1.6-2.6) mg/dL Total Bilirubin 0.6 (0.0-1.0) mg/dL Direct Bilirubin 0.2 (0.0-0.5) mg/dL AST 17 (5-31) U/L ALT 14 (0-31) U/L Alkaline Phosphatase 83 (39-117) U/L Total Creatine Kinase 68 (26-140) U/L Troponin I High Sens < 2.7 (<3.5-17.0) ng/L C-Reactive Protein 0.35 (< or = 0.50) mg/dL Total Protein 7.2 (6.5-8.0) g/dL Albumin 4.0 (3.5-5.0) g/dL Urine Color Yellow Urine Appearance Clear Urine pH 6.5 (5.0-9.0) Ur Specific [place] 1.025 (1.005-1.025) Urine Protein Negative (Neg-Trace) mg/dL Urine Glucose (UA) Negative (Negative) mg/dL Urine Ketones Trace (Negative) mg/dL Urine Blood Negative (Negative) Urine Nitrite Negative (Negative) Ur Leukocyte Esterase Trace H (Negative) Urine RBC 0-2 (0-2) /HPF Urine WBC 0-5 (0-5) /HPF Ur Squamous Epith Cells 3-5 (0-2) /HPF Urine Bacteria Trace (None Seen) Hyaline Casts 0-2 (0-2) /LPF Urine Test NEGATIVE (NEGATIVE) Independent Interpretation I performed an independent interpretation of an: CT Scan (Grossly negative) Radiology Impression Discussion of test interpretation with radiology: I have reviewed the radiologist's reading. 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 No Action aripiprazole [Abilify] 10 mg tablet 10 mg PO BEDTIME Qty: 30 0RF Patient Comments: Patient stated she takes in the morning. bupropion HCl 150 mg tablet extended release 24 hr 150 mg PO QAM Qty: 30 0RF gabapentin 800 mg tablet 800 mg PO TID Qty: 90 0RF ibuprofen 600 mg tablet 600 mg PO Q6H PRN (Reason: pain) Qty: 30 0RF acetaminophen [Tylenol Extra Strength] 500 mg tablet 1,000 mg PO Q8H PRN (Reason: pain) Qty: 30 0RF morphine 15 mg tablet 15 mg PO Q8H PRN (Reason: pain) Qty: 15 0RF Rx Instructions: Partial Fill upon patient request. cyclobenzaprine 10 mg tablet 10 mg PO BEDTIME PRN (Reason: muscle spasms) buspirone 10 mg tablet 10 mg PO TID PRN (Reason: anxiety) naproxen [Naprosyn] 500 mg tablet 500 mg PO BID Qty: 20 0RF tramadol 50 mg tablet 50 mg PO Q12H PRN (Reason: pain) Qty: 30 0RF (DME) leg brace Misc See Rx Instructions .Route Qty: 1 0RF Rx Instructions: As directed Referrals: Merly Carrington MD [Primary Care Provider, Internal Medicine] - 2 days Print Language: Comoran
[2025-05-30] MEDS: iohexoL 350 MG/ML 100 ML INFUS..BTL IV (13:25)
[2025-05-30 14:06] VITALS: BP 120/57; PULSE 68; RESP 14; TEMP 36.7; O2SAT 99
[2025-05-30 17:31] VITALS: BP 120/57; PULSE 68; RESP 14; TEMP 36.7; O2SAT 99
== END 2025-05-30 17:32 | disposition home or self-care (01) ==
PROVIDERS: Emergency Provider Emergency Medicine Emergency Medical Services; PCP Internal Medicine
DX: G60.0 Hereditary motor and sensory neuropathy (principal); R10.9 Unspecified abdominal pain; R11.2 Nausea with vomiting, unspecified; R19.7 Diarrhea, unspecified; R53.81 Other malaise; F12.90 Cannabis use, unspecified, uncomplicated; Z87.891 Personal history of nicotine dependence
CPT/HCPCS: 36415; 74177; 80048; 80076; 81001; 81025; 82550; 83735; 84484; 85025; 85652; 86140; 96361; 96374; 96375; 96376; 99284; 99285; J1171; J2405; Q9967

== ENCOUNTER → 2025-05-30 12:09 | Outpatient (BNV) | payer SELFPAY | PROVIDERS: Emergency Provider Emergency Medicine Emergency Medical Services; PCP Internal Medicine; Visit Provider Radiology Diagnostic Radiology | DX: R10.9 Unspecified abdominal pain (principal) | CPT/HCPCS: 74177 ==

== ENCOUNTER 2025-06-27 13:59 | Emergency (ER) | payer OTHER, SELFPAY ==
[2025-06-27 14:17] VITALS: BP 160/95; PULSE 108; RESP 19; TEMP 36.6; O2SAT 98; BMI 43.5
--- NOTE | 2025-06-27 14:17 | ED_ITS ---
HPI - General Adult General Chief complaint: General Medical Stated complaint: Weakness, headache, body aches Time Seen by Provider: 06/27/25 17:11 Source: patient Mode of arrival: ambulatory Limitations: no limitations History of Present Illness ED Provider: DR. 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 Patient had issue with her insurance and can not see her PCP now. No fever, no chills, +intermittent abdominal cramps with typical for patient presentation. Patient smokes marijuana on daily basis try to alleviate her symptoms with no relief today. Related Data Home Medications ?Medication ?Instructions ?Recorded ?Confirmed buspirone 10 mg tablet 10 mg PO TID PRN anxiety 12/20/24 cyclobenzaprine 10 mg tablet 10 mg PO BEDTIME PRN musc le spasms 07/25/24 12/20/24 Previous Rx's ?Medication ?Instructions ?Recorded aripiprazole 10 mg tablet (Abilify) 10 mg PO BEDTIME # 30 tabs 01/29/23 bupropion HCl 150 mg 24 hr tablet, 150 mg PO QAM #30 t abs 01/29/23 extended release gabapentin 800 mg tablet 800 mg PO TID #90 tabs 01/29 naproxen 500 mg tablet (Naprosyn) 500 mg PO BID #20 ta bs 10/05/24 acetaminophen 500 mg tablet 1,000 mg (2 x 500 mg) PO Q 8H PRN 11/17/24 (Tylenol Extra Strength) pain #30 tabs ibuprofen 600 mg tablet 600 mg PO Q6H PRN pain #30 t abs 11/17/24 tramadol 50 mg tablet 50 mg PO Q12H PRN pain #30 t abs 12/07/24 leg brace #1 ea 12/20/24 morphine 15 mg immediate release 15 mg PO Q8H PRN pain #15 tabs 03/13/25 tablet ondansetron 4 mg disintegrating 4 mg PO TID PRN nausea and 07/01/25 tablet vomiting 5 days #10 tabs oxycodone 5 mg tablet 5 mg PO Q8H PRN pain #7 tabs 05/30/25 oxycodone 5 mg tablet 5 mg PO Q8H PRN pain #5 tabs 06/27/25 Allergies Allergy/AdvReac Type Severity Reaction Status Date / Time apple Allergy Throat Verified 06/27/25 14:19 itches Review of Systems 2 Review of Systems: All other systems are reviewed and are negative Constitutional: Reports as per HPI and Reports no additional constitutional complaints Eyes: Reports as per HPI and Reports no additional eye complaints Reports system reviewed and no additional complaints, except as documented Cardiovascular: Reports as per HPI and Reports no additional cardiovascular complaints Respiratory: Reports as per HPI and Reports no additional respiratory complaints Gastrointestinal: Reports as per HPI and Reports no additional gastrointestinal complaints Genitourinary: Reports no additional female genitourinary complaints Musculoskeletal: Reports no additional musculoskeletal complaints Skin/Breast: Reports system reviewed and no additional complaints, except as docu Psychiatric: Reports no additional psychiatric complaints Endocrine: Reports no additional endocrine complaints Hematologic/Lymphatic: Reports no additional hematologic/lymphatic complaints Allergic/Immunologic: Reports no additional allergic/immunologic complaints Reports system reviewed and no additional complaints, except as documented and Reports Abnormal speech present FOR[facility]LY [facility], [facility] Past Medical History Medical History PTSD (post-traumatic stress disorder) Anxiety Depression Charcot Leanna Tooth muscular atrophy Family History Family History Mother Colon cancer Social History Social History Household Members: Children Household Members Other:: Pt's son,sister and brother in law Housing: Apartment Alcohol intake: never Patient Tobacco Use Status: Former Tobacco user Tobacco use type: Cigarette Second Hand Smoke Exposure: No Substance Use Type: Marijuana Advance Directives: No Advance Directives Information Provided: No Do you have a plan to hurt others: No Plan service: No Sexual orientation: Straight/Heterosexual Physical Exam ED Vital Signs: Vital Signs - 24 hr 06/27/25 14:17 06/27/25 17:00 06/27/25 18:43 Temperature 98 F 98.2 F 98.3 F Pulse Rate 108 H 86 82 Respiratory Rate 19 18 16 Blood Pressure 160/95 H 149/84 H 109/50 L Pulse Oximetry 98 99 Oxygen Delivery Method Room Air Room Air Room Air BMI result Body Mass Index 43.5 Vital signs have been reviewed and appear to be correct. Blood pressure elevated. Heart rate normal. Respiratory rate normal. Temperature normal. Oxygen saturation normal. Appearance: Alert. Oriented X3. No acute distress. Head: Normal external exam. Normocephalic. Atraumatic. No Faulkner signs noted. No raccoon eyes noted Eyes: PERRLA. EOMI. Conjunctiva and sclera normal. Eyelids normal. ENT: TM's Normal. Pharynx normal. Uvula midline. Moist mucous membranes. No trismus noted. No drooling noted. No muffled voice noted. Neck: Normal inspection. Neck supple. FROM. No adenopathy. Thyroid Normal. No meningeal signs. No neck mass noted. CVS: Normal heart rate and rhythm. Heart sound normal. No murmurs noted. Pulses normal throughout. Respiratory: No respiratory distress. Painless inspiration. Breath sounds normal. No wheezes/rales/rhonchi noted. Chest nontender. No accessory muscle usage noted or decreased air movement noted. Abdomen: Soft and nontender. Bowel sounds normal in all 4 quadrants. No distention noted. No organomegaly noted. No visible injury noted. Back: No CVA tenderness. Full range of motion noted. Skin: Skin warm and dry. Normal skin color. Normal skin turgor. No rashes/lesions/lacerations noted. Extremities: No lower extremity edema. Extremities exhibit normal range of motion. Extremities nontender. Neuro: Mental status: Normal attention, orientation, memory, and affect. Cranial nerves: Pupils are equal, round and reactive to light, EOMI, visual pratt are fall, face is symmetric, facial sensations are normal. Motor examination normal muscle tone, strength to 4 extremities. DTR are +2, planter's are flexor. Sensory exam; normal coordination, no ataxia, gait stable. Cerebellar exam: Kujlkh-wu-gecq and dcdq-kh-edfe is normal. Extrapyramidal system: No tremors, no rigidity with normal facial expressions. Pronator drift not present Course Course Course Narrative: This is an RME performed by Annalisa Dos Santos CNP: Additional HPI, ROS, PE not included below will be deferred to primary provider. Patient is a 35 year female who presents emergency department for evaluation, reporting Generalized weakness for the past few days, awaking in the morning with vomiting and diarrhea, symptoms improve later in the day, having body aches. Breathing feels heavy. Supposed to be on gabapentin 800mg typically 1-2 times daily for CMT, but hasnt been on it for a month due to insurance issues Plan: serum labs, urinalysis, hcg, viral serologies, CXR Reevaluation(s) Reevaluation #1: CMT neuromuscular disease, presented with acute exacerbation of generalized body pain. Feels better after Dilaudid and Muscle relaxant. Will prescribe a few pills of oxycodone to help patient's symptoms at home patient was instructed to relax and drink plenty of fluids and return if worsening of her symptoms.. will discharge to follow-up with PCP. Time: 20:05 Medications Administered Discontinued Medications Generic Name Dose Route Start Last Admin Trade Name Freq PRN Reason Stop Dose Admin Cyclobenzaprine HCl 10 mg 06/27/25 17:22 06/27/25 17:38 Cyclobenzaprine Hcl 10 Mg Tablet PO 06/27/25 17:23 10 mg ONCE ONE Administration Hydromorphone HCl 2 mg 06/27/25 17:22 06/27/25 17:38 Hydromorphone Hcl 2 Mg/Ml Vial IVPUSH 06/27/25 17:23 2 mg ONCE ONE Administration Protocol Lactated Ringer's 1,000 mls @ 999 mls/hr 06/27/25 17:30 06/27/25 18:48 Lr IV 06/27/25 18:30 Infused .Q1H1M PATSY Infusion Sodium Chloride 1,000 mls @ 999 mls/hr 06/27/25 19:04 06/27/25 19:21 Ns IV 06/27/25 20:04 999 mls/hr .Q1H1M ONE Administration Ketorolac Tromethamine 15 mg 06/27/25 17:22 06/27/25 17:38 Ketorolac Tromethamine 15 Mg/Ml Vial IVPUSH 06/27/25 17:23 15 mg ONCE ONE Administration Oxycodone HCl 5 mg 06/27/25 19:20 06/27/25 19:25 Oxycodone Hcl Immed Release 5 Mg Tablet PO 06/27/25 19:21 5 mg ONCE ONE Administration Medical Decision Making Differential Diagnosis Differential Diagnoses: The differential diagnosis associated with the presentation includes (CMT disease, electrolyte derangement, severe anemia, myofascial pain syndrome, viral infection,) Admission/Observation Consideration of admission/observation: Escalation of care including admission/observation considered Lab Data MDM Lab Attestation statement: I reviewed the patient's lab results. 06/27/25 14:48 06/27/25 14:48 Labs: Lab Results 06/27/25 06/27/25 Range/Units 14:48 18:18 WBC 10.1 (4.8-10.8) X10*3/uL RBC 4.14 L (4.20-5.50) X10*6/uL Hgb 12.0 (12.0-16.0) g/dl Hct 34.7 L (37.0-47.0) % MCV 83.8 (80.0-98.0) fL MCH 29.0 (27.0-33.0) pg MCHC 34.6 (31.0-35.0) g/dl RDW 13.7 (11.0-16.0) % Plt Count 361 (160-400) X10*3/uL MPV 9.2 L (9.4-12.3) fL Immature Gran % (Auto) 0.4 (0.0-0.4) % Neut % (Auto) 65.7 (45-73) % Lymph % (Auto) 23.7 (20-40) % Bell % (Auto) 8.7 (2-11) % Eos % (Auto) 1.0 (0-4) % Baso % (Auto) 0.5 (0-2) % Lymph # (Auto) 2.4 (1.2-4.9) X10*3/uL Bell # (Auto) 0.9 (0.1-1.2) X10*3/uL Eos # (Auto) 0.1 (0.0-0.4) X10*3/uL Baso # (Auto) 0.1 (0.0-0.2) X10*3/uL Abs Immat Gran (auto) 0.04 H (0.00-0.03) X10*3/uL Absolute Neuts (auto) 6.6 (2.0-8.3) x10*3/uL Absolute Nucleated RBC 0.000 (0.0-0.012) X10*3/uL Nucleated RBC % (auto) 0.0 (0.0-0.2) /100WBC Sodium 139 (135-145) mmol/L Potassium 3.5 (3.3-5.1) mmol/L Chloride 107 (96-108) mmol/L Carbon Dioxide 24 (22-29) mmol/L Anion Gap 12 (12-20) BUN 7 L (9-16) mg/dL Creatinine 0.70 (0.5-1.4) mg/dL Estim Creat Clear Calc 124.6 Estimated GFR > 60 Random Glucose 117 H (60-115) mg/dL Calcium 8.7 (8.4-10.2) mg/dL Magnesium 2.0 (1.6-2.6) mg/dL Total Bilirubin 0.8 (0.0-1.0) mg/dL AST 19 (5-31) U/L ALT 16 (0-31) U/L Alkaline Phosphatase 89 (39-117) U/L Troponin I High Sens < 2.7 (<3.5-17.0) ng/L Total Protein 7.1 (6.5-8.0) g/dL Albumin 4.0 (3.5-5.0) g/dL Lipase 15 (8-78) U/L Beta HCG, Quant < 2 mIU/mL Urine Color Yellow Urine Appearance Clear Urine pH 7.0 (5.0-9.0) Ur Specific [place] 1.015 (1.005-1.025) Urine Protein Negative (Neg-Trace) mg/dL Urine Glucose (UA) Negative (Negative) mg/dL Urine Ketones Trace (Negative) mg/dL Urine Blood Negative (Negative) Urine Nitrite Negative (Negative) Ur Leukocyte Esterase Negative (Negative) Influenza Type A (PCR) NEGATIVE (Negative) Influenza Type B (PCR) NEGATIVE (Negative) RSV RNA Qual (PCR) NEGATIVE (Negative) SARS-CoV-2 RNA (RT-PCR) NEGATIVE (Negative) Discharge Plan 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 No Action aripiprazole [Abilify] 10 mg tablet 10 mg PO BEDTIME Qty: 30 0RF Patient Comments: Patient stated she takes in the morning. bupropion HCl 150 mg tablet extended release 24 hr 150 mg PO QAM Qty: 30 0RF gabapentin 800 mg tablet 800 mg PO TID Qty: 90 0RF ibuprofen 600 mg tablet 600 mg PO Q6H PRN (Reason: pain) Qty: 30 0RF acetaminophen [Tylenol Extra Strength] 500 mg tablet 1,000 mg PO Q8H PRN (Reason: pain) Qty: 30 0RF morphine 15 mg tablet 15 mg PO Q8H PRN (Reason: pain) Qty: 15 0RF Rx Instructions: Partial Fill upon patient request. cyclobenzaprine 10 mg tablet 10 mg PO BEDTIME PRN (Reason: muscle spasms) buspirone 10 mg tablet 10 mg PO TID PRN (Reason: anxiety) naproxen [Naprosyn] 500 mg tablet 500 mg PO BID Qty: 20 0RF ondansetron 4 mg tablet,disintegrating 4 mg PO TID PRN (Reason: nausea and vomiting) 5 Days Qty: 10 0RF oxycodone 5 mg tablet 5 mg PO Q8H PRN (Reason: pain) Qty: 7 0RF Rx Instructions: Partial Fill upon patient request. tramadol 50 mg tablet 50 mg PO Q12H PRN (Reason: pain) Qty: 30 0RF (DME) leg brace Misc See Rx Instructions .Route Qty: 1 0RF Rx Instructions: As directed Referrals: Merly Carrington MD [Primary Care Provider, Internal Medicine] Print Language: Romanian
--- NOTE | 2025-06-27 14:20 | ECG_ITS ---
Test Reason : sob Blood Pressure : */* mmHG Vent. Rate : 97 BPM Atrial Rate : 97 BPM P-R Int : 158 ms QRS Dur : 70 ms QT Int : 332 ms P-R-T Axes : 52 55 55 degrees QTcB Int : 421 ms Sinus rhythm with Premature supraventricular complexes Nonspecific T wave abnormality Abnormal ECG When compared with ECG of 27-May-2025 08:48, Premature supraventricular complexes are now Present Nonspecific T wave abnormality, worse in Anterior leads Referred By: Miriam Dos Santos Electronically Signed By: ARPITA GROVES MD
[2025-06-27 14:55] LABS: MANUAL DIFF FLAG NO
[2025-06-27 14:57] LABS: Hematocrit 34.7 % (37.0-47.0); Hemoglobin 12.0 g/dl (12.0-16.0); Imm Gran Abs Auto 0.04 X10*3/uL (0.00-0.03); Imm Gran Pct Auto 0.4 % (0.0-0.4); Lymphocytes Absolute Auto 2.4 X10*3/uL (1.2-4.9); Mean Corpuscular HGB Conc 34.6 g/dl (31.0-35.0); Mean Corpuscular Hemoglobin 29.0 pg (27.0-33.0); Mean Corpuscular Volume 83.8 fL (80.0-98.0); NRBC Abs Auto 0.000 X10*3/uL (0.0-0.012); NRBC Pct Auto 0.0 /100WBC (0.0-0.2); Platelet Count 361 X10*3/uL (160-400); Red Blood Count 4.14 X10*6/uL (4.20-5.50); White Blood Count 10.1 X10*3/uL (4.8-10.8)
[2025-06-27 15:11] LABS: Alanine Aminotransferase 16 U/L (0-31); Albumin Level 4.0 g/dL (3.5-5.0); Alkaline Phosphatase 89 U/L (39-117); Anion Gap 12 (12-20); Aspartate Amino Transferase 19 U/L (5-31); Blood Urea Nitrogen 7 mg/dL (9-16); Calcium 8.7 mg/dL (8.4-10.2); Carbon Dioxide 24 mmol/L (22-29); Chloride 107 mmol/L (96-108); Creatinine Clr Calc Pharmacy 124.6; Estimated Glomerular Filt Rate > 60; Lipase 15 U/L (8-78); Magnesium 2.0 mg/dL (1.6-2.6); Potassium 3.5 mmol/L (3.3-5.1); Sodium 139 mmol/L (135-145); Total Protein 7.1 g/dL (6.5-8.0)
[2025-06-27 15:22] LABS: Troponin-I High Sensitivity < 2.7 ng/L (<3.5-17.0)
[2025-06-27 15:34] LABS: Resp Syncy Virus RNA Qual PCR NEGATIVE (Negative); SARS COV2 PCR INHOUSE NEGATIVE (Negative)
[2025-06-27 17:00] VITALS: BP 149/84; PULSE 86; RESP 18; TEMP 36.8
[2025-06-27] MEDS: Lactated Ringers 1,000 ML 999 ML IV (17:33)
--- OUTSIDE RECORDS SUMMARY | 2025-06-27 17:39 | XMS_ITS | Data Portability ---
Author Organization [facility], Pe nnjaylan, MMSEPA_F_Card_Oscar_ Stefan Address [address] [place] [id number] Assessment No assessment recorded. Plan of Treatment Reminders Order Date Submit Date Provider Last Modified By Organization Details Last Modified Time Details Appointments None recorded. Lab CBC w/ auto diff 2018 019 [email or web address] [facility], [address] [place] [address], [id number], 0 14:32:12 beta-HCG, qualitativ e, serum or plasma 2018 019 [facility], [address] [place] [address], [id number], 0 14:32:12 PPD (purified protein derivative ), skin test 2018 019 UDAY [facility], [address] [place], [address], 9 10:04:36 Referral gastroente rologist referral 2018 019 [email or web address] Not available 9 07:24:03 rheumatolo gist referral 2018 019 [email or web address] Gutierrez Krishnan MD, [address] [place], [address], 9 07:24:03 Procedures None recorded. Surgeries None recorded. Imaging None recorded. Medication Orders dicyclomin e 10 mg capsule 2018 019 INTERFACE [id number], [address] [place] [address], [id number], 9 13:59:54 famotidine 20 mg tablet 2018 019 [facility], [address] [place] [address], [id number], 9 13:32:44 fluoxetine 20 mg capsule 2018 019 [email or web address] [facility], [address] [place] [address], [id number], 9 13:32:58 buspirone 10 mg tablet 2018 019 INTERFACE [facility]1968, [address] [place] [address], [id number], 9 13:59:48 bupropion HCl XL 150 mg 24 hr tablet, extended release 2018 019 INTERFACE [facility], [address] [place] [address], [id number], 9 13:59:46 buspirone 10 mg tablet 2018 019 INTERFACE [facility]27695, [address] [place] [address], [id number], 9 09:28:31 Wellbutrin SR 150 mg tablet, 12 hr sustained- release 2018 019 [facility]18[facility], [address] [place] [address], [id number], 9 13:42:42 fluoxetine 20 mg capsule 2018 019 [email or web address] [facility]25794, [address] [place] [address], [id number], 9 13:32:58 Patient TargetsNo targets recorded. Patient Instructions Encounter Date Encounter Id Patient Instructions Last Modified By Organization Details Last Modified Time 05/27/2019 [id number] eating healthy foods: care instructions [email or web address] Not available 05/27/2019 09:28:26 08/19/2019 [id number] call answering service over weekend if feel worse, you develop fevers, nausea or vomiting, if pain gets worse or if bleeding does not continue to lessen. f/u Thursday with Allan for next steps. 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 for Referral Projection Engineer Referral for Fibromyalgia Referring Physician: Allan Connelly [facility], Encounter Date: 05/27/2019 Drainage Inspector Referral for Lower abdominal pain Referring Physician: Allan Connelly [facility], Encounter Date: 05/27/2019 Results Created Date Observation Date Name Description Value Unit Range Abnormal Flag Note LastModifiedBy Organization Detail LastModifiedTime 05/30/2005/30/2019 PPD (ollie fied prote in deriv ative ), skin test Unknown Analyte Unknow n Not Available [facility] [address] [place] [address], [phone], 05/27/2019 09:23:53 05/30/20 19 05/30/2019 PPD (ollie fied prote in deriv ative ), skin test Unknown Analyte Unknow n Not Available [facility] [address] [place] [address], [phone], 05/27/2019 09:23:53 05/30/20 19 05/30/2019 PPD (ollie fied prote in deriv ative ), skin test Unknown Analyte [id number] Not Available Nps[facility]n_ pcp[facility]rha wn_office [address] [place] [address], [phone], 05/27/2019 09:23:53 05/30/20 19 05/30/2019 PPD (ollie fied prote in deriv ative ), skin test Unknown Analyte 0 Not Available [facility]office [address] [place] [address], [phone], 05/27/2019 09:23:53 05/30/20 19 05/30/2019 PPD (ollie fied prote in deriv ative ), skin test Unknown Analyte par [employer]arma ceutic al Not Available [facility]pcp[facility]ila w[facility]office [address] [place] [address], [phone], 05/27/2019 09:23:53 05/30/20 19 05/30/2019 PPD (ollie fied prote in deriv ative ), skin test Unknown Analyte 0.1ml Not Available [facility]ps[facility]n_ pcp[facility]rha wn[facility]office [address] [place] [address], [phone], 05/27/2019 09:23:53 05/30/20 19 05/30/2019 PPD (ollie fied prote in deriv ative ), skin test Unknown Analyte right forear m Not Available [facility] [address] [place] [address], [phone], 05/27/2019 09:23:53 05/30/20 19 05/30/2019 PPD (ollie fied prote in deriv ative ), skin test Unknown Analyte 019 Not Available [facility]office [address] [place] [address], [phone], 05/27/2019 09:23:53 05/30/20 19 05/30/2019 PPD (ollie fied prote in deriv ative ), skin test Unknown Analyte 9:40 am Not Available [facility]office [address] [place] [address], [phone], 05/27/2019 09:23:53 05/30/20 19 05/30/2019 PPD (ollie fied prote in deriv ative ), skin test Unknown Analyte Intrad ermal Not Available [facility]pcp[facility]ila [facility]office [address] [place] [address], [phone], 05/27/2019 09:23:53 05/30/20 19 05/30/2019 PPD (ollie fied prote in deriv ative ), skin test Unknown Analyte 2018 Not Available [facility]office [address] [place] [address], [phone], 05/27/2019 09:23:53 05/30/20 19 05/30/2019 PPD (ollie fied prote in deriv ative ), skin test Unknown Analyte 08:54 am Not Available [facility] [address] [place] [address], [phone], 05/27/2019 09:23:53 05/30/20 19 05/30/2019 PPD (ollie fied prote in deriv ative ), skin test Unknown Analyte negati ve Not Available [facility]pcp[facility]r [facility]ila [facility]office [address] [place] [address], [phone], 05/27/2019 09:23:53 05/30/20 19 05/30/2019 PPD (ollie fied prote in deriv ative ), skin test Unknown Analyte 0mm Not Available Nps_n_ pcp_rha wn_office [address] [place] [address], [phone], 05/27/2019 09:23:53 Result Notes None recorded. Problems Name Problem SNOMED Code Status Onset Date Resolution Date Notes Provider Name and Address Organization Details Recorded Time Borderline personality disorder 12254710 Active 2018 JOSE ALFREDO Ibanez [employer] [place], [address], [place], [address], [place] [facility] [place] 9 09:26:04 Posttraumati c stress disorder 62762672 Active 2018 JOSE ALFREDO Ibanez [employer] [place], [address], [place], [address], [place] 9 09:26:06 Severe major depression 064375487 Active 2018 JOSE ALFREDO Ibanez [address] [facility], [address], [place], [address], [place] 9 09:26:08 Lopez matta 446145510 Active 2018 JOSE ALFREDO Ibanez [address] [facility], [address], [place], [address], [facility] - [place] [facility] [place] 9 09:27:21 Fibromyalgia 896142635 Active 2018 JOSE ALFREDO Ibanez [address] [place] [address], [address], [place], [address], [facility] - [place] [facility] [place] 9 09:27:32 Problem Notes None recorded. Medical [...] verbal numeric rating [Score] - Reported Systolic And Diastolic Provider Name and Address Organization Details Last Updated DateTime 9 97.7 [degF] 154.94 cm 28.5 kg/m2 88945.4 5 g 71 /min 97 % 97 % 6 110/70 mm[Hg] Odette Sung [facility] 9 08:38:11 Date Recorded Body height Body mass index (BMI) Body weight Body temperature Heart rate Oxygen saturation Oxygen saturation in Arterial blood by Pulse oximetry Pain severity - 0-10 verbal numeric rating [Score] - Reported Systolic And Diastolic Provider Name and Address Organization Details Last Updated DateTime 9 154.94 cm 28.7 kg/m2 52963.0 4 g 98.6 [degF] 80 /min 99 % 99 % 5 100/70 mm[Hg] Kathy Askreina [place] Ana Lilia [facility] 9 13:45:06 Date Recorded Body height Body mass index (BMI) Body weight Pain severity - 0-10 verbal numeric rating [Score] - Reported Body temperature Heart rate Oxygen saturation Oxygen saturation in Arterial blood by Pulse oximetry Systolic And Diastolic Provider Name and Address Organization Details Last Updated DateTime 9 154.94 cm 28.9 kg/m2 66821.6 3 g 4 98.9 [degF] 86 /min 98 % 98 % 120/82 mm[Hg] [facility] 9 13:34:37 Social History Question Answer Notes LastModified by Organizat ion Details LastModified Time Tobacco Smoking Status Never Smoker Odette swain [place] Ana Lilia [facility] 05/27/2019 08:52:51 Do You Have An Advance [...] MDCK, quadrivalent, PF 08/19/2019 completed Not Available [facility] 0 02:46:58 Past Encounters Encounter ID Performer Location Encounter Start Date Encounter Closed Date Diagnosis/Indication Diagnosis SNOMED-CT Code Diagnosis ICD10 Code Diagnosis Note [id number] JOSE ALFREDO Ibanez NPS_N_PCP [facility] [address] [place], [place] [address] 05/27/2019 08:14:17 05/27/2019 10:03:00 Adult health examination 773140976 Z00.00 Diet and exercise discussed Overweight 722290435 E66 .3 Family his tory of cancer of colon 402830543 Z80.0 Had colonoscop y yesterday Fibromyalgia 808437994 M 79.7 Lower abdominal pain 545 20763 R10.30 Unclear Dx Chiari malformation 2531 46858 Q07.00 Tuberculos is screening 648620785 Z11.1 PPD placed today for [facility] form Severe rajwinder or depression 476958433 F32.2 Requesting records but also starting form for [facility]. Giving 1mon supply of medication . No SI Posttrauma tic stress disorder 97844113 F43.10 Borderline personality disorder 55243112 F60.3 [id number] JOSE ALFREDO Ibanez NPS_N_PCP [facility] [address] [address] 07/29/2019 13:32:56 07/29/2019 14:00:41 Severe major depression 080543696 F32.2 Requesting records but also starting form for [facility]. Giving 1mon supply of medication . No SI Irritable bowel syndrome 88695187 K58.9 Needs to see GI for fu. Does not appear to be viral or infection [id number] Niru Banks MD NPS_N_PCP [facility] [address] [address] 08/19/2019 13:28:47 08/19/2019 14:45:42 Menorrhagia 948819541 N92.0 has automatic vulcanizing operator f/u scheduled for 08/29. Needs infl uenza immunization 469431213 Z23 Health Concerns Section Related Observation LastModified by Organization Detai ls LastModified Time None Recorded Concern Status LastModified by Organization Details LastModified Time None Recorded Advance Directives Directive N: Payers Insurance Date Sequence Insurance Name Policy Number Policy Lin Covered Member ID Lin Member ID Guarantor Name 12/12/2019 1 [employer] (MEDICAID REPLACEMENT - HMO) Viomil Delaney [id number] Viomil Dinzey Delaney 02/27/2022 1 [facility] (MEDICAID HMO) [id number] Viomil Delaney [id number] Viomil Dinzey Delaney 09/11/2022 1 [facility]) Viomil Dinzey Delaney [id number] Viomil Dinzey Delaney OBGyn Episode No OBEpisode recorded.
--- OUTSIDE RECORDS SUMMARY | 2025-06-27 17:40 | XMS_ITS | Clinical Summary ---
Author Organization [facility] ity Address [address] [place] [address] Care Team Providers Care Cell Biology Scientist Name Role Phone Unavailable Primary Care Provider [...] Cervical Cancer Screening: P ap Smear 2011 HIV Screening 06/07/2022 Hepatitis C Screening 06/07/2022 Social Influencers of Health Screening 06/07/2022 COVID-19 Vaccine ( - 2023-2 5 season) 2024 Depression Screening 11/30/2024 Influenza Vaccine (#1) 2025 08/19/2019 HIB Vaccines Aged Out No longer [...] 5 Years) and At-Risk Patients (6 to 49 Years) Aged Out No longer eligi ble based on patient's age to complete this topic RSV Immunization Patients Un sharron 20 months Aged Out No longer eligible b ased on patient's age to complete this topic Varicella Vaccines Aged Out No longer eligible based on patient's age to complete this topic
--- OUTSIDE RECORDS SUMMARY | 2025-06-27 17:40 | XMS_ITS | Patient Health Record ---
Author Organization [facility] Address [address] [place] [address] Care Team Providers Care International Manager Name Role Phone Merly Carrington Primary Care Provider Unavailab Cas Bell Unavailable [phone] Allergies No Known Allergies Reason For Referral Referring Provider First Name Merly Referring Provider Last Name Charissa Referring Provider Speciality Internal M edicine Referred Organization [facility] Referred Provider Cas Michel Referred Address [address],[place], [place],[address], Referred Provider Specialty Gastroentero logy General Notes Amalia Miranda 024 02:55:14 PM EDT > requested a [facility] referral from Dr. Carrington's office for colon with Dr. Michel on [phone] Referral Priority Routine Medications Medication SIG (Take, [...] Problem Screening for malignant neoplasm of colon (284840108) Encounter for screening for malignant neoplasm of colon (Z12.11) Active confirmed Problem Pre-procedure evaluation check (721123889) Encounter for other preprocedural examination (Z01.818) Active confirmed Problem Family history o f colon cancer in mother (Z80.0) Active confirmed Encounters Encounter Location Date Provider Diagnosis [facility] [address] [place] [id number] 08/29/2024 Cas Michel [facility] [address] [place] [phone] 01/04/2025 Cas Michel Plan Of Treatment Future Test Test Name Order Date COLONOSCOPY 05/05/2024 Insurance Providers Payer Name Payer Address Payer Phone Subscriber Number Group Number Insured Name Patient Relationship to Insured Coverage Start Date Coverage End Date MEDICAID OF [facility] [address] [place] [phone] [id number] ROBY BARAJAS Self - patient is the insured Medical (General) History Medical History History ICD Code Denies [place],DM,CVA,Lung disease,renal dise ase Charcot Leanna Tooth disease--affects leg s, hands, and balance Depression/PTSD Surgical History Surgery Date(Month/Year)
[2025-06-27 18:31] LABS: Appearance Urine Clear; Glucose Urine UA Negative (Negative); PH 7.0 (5.0-9.0); Specific Gravity - Urine 1.015 (1.005-1.025)
[2025-06-27 18:43] VITALS: BP 109/50; PULSE 82; RESP 16; TEMP 36.8; O2SAT 99
[2025-06-27] MEDS: oxyCODONE HCl Immed Release 5 MG TABLET PO (19:25)
[2025-06-27 20:14] VITALS: BP 109/50; PULSE 82; RESP 16; TEMP 36.8; O2SAT 99
== END 2025-06-27 20:14 | disposition home or self-care (01) ==
PROVIDERS: Nurse Practitioner Family; Emergency Provider Emergency Medicine; PCP Internal Medicine
DX: G60.0 Hereditary motor and sensory neuropathy (principal); R53.81 Other malaise; R00.2 Palpitations; F12.90 Cannabis use, unspecified, uncomplicated; Z03.818 Encounter for observation for suspected exposure to other biological agents ruled out; Z79.899 Other long term (current) drug therapy
CPT/HCPCS: 36415; 80053; 81003; 83690; 83735; 84484; 84702; 85025; 87637; 93005; 96361; 96374; 96375; 99284; J1171; J1885; J7120

== ENCOUNTER → 2025-06-27 14:20 | Outpatient (BNV) | payer SELFPAY | PROVIDERS: Emergency Provider Emergency Medicine; PCP Internal Medicine; Visit Provider Internal Medicine Cardiovascular Disease | DX: I49.1 Atrial premature depolarization (principal) | CPT/HCPCS: 93010 ==

== ENCOUNTER 2025-07-19 12:57 | Emergency (ER) | payer OTHER, SELFPAY ==
--- NOTE | ~2025-07-19 | XR_ITS ---
EXAMINATION: XR CHEST CLINICAL INFORMATION: pain COMPARISON: July 11, 2024 TECHNIQUE: 2 views of the chest were obtained. FINDINGS: No significant abnormality is noted involving the heart, lungs, mediastinum, bony thorax or soft tissues. XR/XR chest 2V IMPRESSION: No acute disease or interval change. Electronically signed by: Qamar Martins MD 07/19/2025 04:15 PM EDT RP
[2025-07-19 13:56] VITALS: BP 154/85; PULSE 81; RESP 16; TEMP 36.6; O2SAT 100; BMI 46.5
--- NOTE | 2025-07-19 13:58 | ECG_ITS ---
Test Reason : SOB Blood Pressure : */* mmHG Vent. Rate : 74 BPM Atrial Rate : 74 BPM P-R Int : 172 ms QRS Dur : 72 ms QT Int : 368 ms P-R-T Axes : 57 71 55 degrees QTcB Int : 408 ms Sinus rhythm with Premature ventricular complexes Otherwise normal ECG When compared with ECG of 27-Jun-2025 14:26, T wave inversion less evident in Anterolateral leads Referred By: Arcenio Victoria Electronically Signed By: ARPITA GROVES MD
--- NOTE | 2025-07-19 13:58 | ED.GENADULT ---
HPI - General Adult General Chief complaint: General Medical Stated complaint: flare up Time Seen by Provider: 07/19/25 19:16 Source: patient Mode of arrival: ambulatory Limitations: no limitations History of Present Illness ED Provider: HPI narrative: 35-year-old woman with a history of fibromyalgia, Charcot Leanna tooth disease, chronic pain, likely some degree of opiate dependence, prior history of alcohol use and benzodiazepine dependence in remission, has had increased visits for pain control in the emergency department, and reports seeing a neurologist at [facility], now being referred to [facility] for CMT specialists, reports pain everywhere including her face, both shoulders abdomen back legs, fairly typical for her. She states when she saw her PCP yesterday she was having similar symptoms but was not prescribed any pain medications. Related Data Home Medications ?Medication ?Instructions ?Recorded ?Confirmed buspirone 10 mg tablet 10 mg PO TID PRN anxiety 07/25/24 12/20/24 cyclobenzaprine 10 mg tablet 10 mg PO BEDTIME PRN muscle spasms 07/25/24 12/20/24 Previous Rx's ?Medication ?Instructions ?Recorded aripiprazole 10 mg tablet (Abilify) 10 mg PO BEDTIME #30 tabs 01/29/23 bupropion HCl 150 mg 24 hr tablet, 150 mg PO QAM #30 tabs 01/29/23 extended release gabapentin 800 mg tablet 800 mg PO TID #90 tabs 01/29/23 naproxen 500 mg tablet (Naprosyn) 500 mg PO BID #20 tabs 10/05/24 acetaminophen 500 mg tablet 1,000 mg (2 x 500 mg) PO Q8H PRN 11/17/24 (Tylenol Extra Strength) pain #30 tabs ibuprofen 600 mg tablet 600 mg PO Q6H PRN pain #30 tabs 11/17/24 tramadol 50 mg tablet 50 mg PO Q12H PRN pain #30 tabs 12/07/24 leg brace #1 ea 12/20/24 morphine 15 mg immediate release 15 mg PO Q8H PRN pain #15 tabs 03/13/25 tablet ondansetron 4 mg disintegrating 4 mg PO TID PRN nausea and 05/30/25 tablet vomiting 5 days #10 tabs oxycodone 5 mg tablet 5 mg PO Q8H PRN pain #7 tabs 05/30/25 oxycodone 5 mg tablet 5 mg PO Q8H PRN pain #5 tabs 06/27/25 Allergies Allergy/AdvReac Type Severity Reaction Status Date / Time apple Allergy Throat Verified 07/19/25 13:59 itches Review of Systems Constitutional: Constitutional: Reports as per HPI [facility] Past Medical History Medical History PTSD (post-traumatic stress disorder) Anxiety Depression Charcot Leanna Tooth muscular atrophy Family History Family History Mother Colon cancer Social History Social History Household Members: Children Household Members Other:: Pt's son,sister and brother in law Housing: Apartment Alcohol intake: never Patient Tobacco Use Status: Former Tobacco user Tobacco use type: Cigarette Second Hand Smoke Exposure: No Substance Use Type: Marijuana Advance Directives: No Advance Directives Information Provided: Yes service: No Sexual orientation: Straight/Heterosexual Physical Exam ED Vital Signs: Vital Signs - 24 hr 07/19/25 13:56 07/19/25 19:52 Temperature 97.9 F 98.5 F Pulse Rate 81 79 Respiratory Rate 16 16 Blood Pressure 154/85 H 126/79 Pulse Oximetry 100 99 Oxygen Delivery Method Room Air Room Air BMI result Body Mass Index 46.5 Const Other: Gen: ?Appears in discomfort CV: RRR, no obvious murmurs appreciated Resp: ?No wheezing rales rhonchi no stridor moving air well Abd: ?Bowel sounds are present, no tenderness no rebound no rigidity MSK: Generalized tenderness throughout her body Skin: Warm, dry, intact, Neuro: ?Alert and oriented x3, moving upper and lower extremities symmetrically, no obvious facial asymmetry noted Course Course Course Narrative: RME, this is a rapid medical exam performed by Ezra Victoria please refer to primary provider for complete H&P- 35-year-old female presents for evaluation of body aches including chest pain. She reports a history of fibromyalgia and believes she is having a flare. She is still has a history of Aitdzbi-Didlw-Yysnv muscular atrophy. Plan for labs, EKG, viral swabs Medications Administered Discontinued Medications Generic Name Dose Route Start Last Admin Trade Name Brenda PRN Reason Stop Dose Admin Dexamethasone Sodium Phosphate 10 mg 07/19/25 19:37 07/19/25 20:59 Dexamethasone Sod Phosphate 10 Mg/Ml Vial IVPUSH 07/19/25 19:38 10 mg ONCE ONE Administration Hydromorphone HCl 1 mg 07/19/25 19:37 07/19/25 20:59 Hydromorphone Hcl 1 Mg/Ml Syringe IVPUSH 07/19/25 19:38 1 mg ONCE ONE Administration Protocol Acetaminophen 1,000 mg in 100 mls @ 400 mls/hr 07/19/25 19:37 07/19/25 20:57 Ofirmev IV 07/19/25 19:51 400 mls/hr ONCE ONE Administration Medical Decision Making Medical Decision Making MDM Narrative: I had a good discussion with the patient regarding the uptake of her ED visits regarding outpatient pain medications specifically narcotics, I have discussed with the patient that ER is not the place where narcotic medications are to be prescribed, specifically she went to see her PCP yesterday and was not prostatic prior narcotics, she also recently saw her neurologist at [facility] and she has seen a neurologist here and there was no recommendation that Hniyqvm-Hwwgs-Sharv syndrome is to be treated with opiate medications. I discussed with the patient that due to her increased ER visits and she does not go anywhere else I am concerned that she is developing opiate dependence. 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 With that said patient's troponin is slightly elevated without ECG changes, possibly there was a degree of stress cardiomyopathy such as takotsubo, she is not specifically endorsing chest pain however, I will provide her with IV pain medications as I do not discuss that she does have some type of the pain with also steroids and IV Tylenol, but I did sit down and had a discussion with the patient regarding my concerns for increased opiate use and prescription. troponin #3 negative, decreased from previous Differential Diagnosis Differential Diagnoses: The differential diagnosis associated with the presentation includes (Fibromyalgia,) Admission/Observation 2022 Emergency Medicine Coding Guide from [employer] on 07/19/2025 All calculations should be rechecked by clinician prior to use RESULT SUMMARY: 5 Estimated Level of Service Problems: High (5) Risk: High (5) Data: Extensive (5) NARRATIVE MDM: This patient's problem complexity is High as patient: with chronic illness(es) with severe exacerbation/progression/side effects. This patient's risk is High due to: overall presentation requiring evaluation for a potentially High-risk process. This patient's data complexity is Extensive due to: -multiple tests ordered/reviewed -external notes reviewed -independent interpretation of imaging or EKG INPUTS: Number and Complexity ?> 1 = 5: chronic illness w/severe exacerbation (a) Risk level ?> 4 = High Tests ordered ?> 3 = >= Tests results reviewed (excluding labs) ?> 2 = 2 Prior external notes reviewed ?> 1 = 1 Assessment requiring and independent historian ?> 0 = No Independent interpretation of tests ?> 1 = Yes Discussed management/test interpretation w/external professional ?> 0 = No Lab Data 07/19/25 14:35 07/19/25 14:35 Labs: Lab Results 07/19/25 07/19/25 07/19/25 Range/Units 14:35 17:35 21:52 WBC 9.7 (4.8-10.8) X10*3/uL RBC 3.96 L (4.20-5.50) X10*6/uL Hgb 11.3 L (12.0-16.0) g/dl Hct 34.3 L (37.0-47.0) % MCV 86.6 (80.0-98.0) fL MCH 28.5 (27.0-33.0) pg MCHC 32.9 (31.0-35.0) g/dl RDW 14.5 (11.0-16.0) % Plt Count 374 (160-400) X10*3/uL MPV 9.1 L (9.4-12.3) fL Immature Gran % (Auto) 0.3 (0.0-0.4) % Neut % (Auto) 63.7 (45-73) % Lymph % (Auto) 25.2 (20-40) % Morton % (Auto) 9.0 (2-11) % Eos % (Auto) 1.4 (0-4) % Baso % (Auto) 0.4 (0-2) % Lymph # (Auto) 2.5 (1.2-4.9) X10*3/uL Morton # (Auto) 0.9 (0.1-1.2) X10*3/uL Eos # (Auto) 0.1 (0.0-0.4) X10*3/uL Baso # (Auto) 0.0 (0.0-0.2) X10*3/uL Abs Immat Gran (auto) 0.03 (0.00-0.03) X10*3/uL Absolute Neuts (auto) 6.2 (2.0-8.3) x10*3/uL Absolute Nucleated RBC 0.000 (0.0-0.012) X10*3/uL Nucleated RBC % (auto) 0.0 (0.0-0.2) /100WBC Sodium 139 (135-145) mmol/L Potassium 4.1 (3.3-5.1) mmol/L Chloride 107 (96-108) mmol/L Carbon Dioxide 24 (22-29) mmol/L Anion Gap 12 (12-20) BUN 10 (9-16) mg/dL Creatinine 0.82 (0.5-1.4) mg/dL Estim Creat Clear Calc 110.8 Estimated GFR > 60 Random Glucose 108 (60-115) mg/dL Calcium 8.4 (8.4-10.2) mg/dL Total Bilirubin 0.2 (0.0-1.0) mg/dL AST 18 (5-31) U/L ALT 16 (0-31) U/L Alkaline Phosphatase 78 (39-117) U/L Total Creatine Kinase 103 (26-140) U/L Troponin I High Sens 20.5 H D 21.4 H 16.8 (<3.5-17.0) ng/L Total Protein 6.4 L (6.5-8.0) g/dL Albumin 3.7 (3.5-5.0) g/dL Lipase 25 (8-78) U/L Beta HCG, Quant < 2 mIU/mL Influenza Type A (PCR) NEGATIVE (Negative) Influenza Type B (PCR) NEGATIVE (Negative) RSV RNA Qual (PCR) NEGATIVE (Negative) SARS-CoV-2 RNA (RT-PCR) NEGATIVE (Negative) Discharge Plan Discharge Clinical Impression: Charcot Leanna Tooth muscular atrophy, Chronic pain syndrome Additional Instructions: I have had a discussion with the your regarding increased ER visits for pain management, as well as outpatient prescriptions of narcotic pain medications, I am recommending that you were seen by your PCP again and that your request referral for pain management physician if you require opiate medications for your symptom control. Your workup today has been largely reassuring with slight elevation on your cardiac enzyme potentially that is due to your pain and stress associated with that, with that said you had no EKG changes and you have low risk for cardiac issues. Any other issues concerns come back to the ER otherwise please make sure to follow up with the PCP with my current recommendations after he this ED visit. Prescriptions: No Action aripiprazole [Abilify] 10 mg tablet 10 mg PO BEDTIME Qty: 30 0RF Patient Comments: Patient stated she takes in the morning. bupropion HCl 150 mg tablet extended release 24 hr 150 mg PO QAM Qty: 30 0RF gabapentin 800 mg tablet 800 mg PO TID Qty: 90 0RF ibuprofen 600 mg tablet 600 mg PO Q6H PRN (Reason: pain) Qty: 30 0RF acetaminophen [Tylenol Extra Strength] 500 mg tablet 1,000 mg PO Q8H PRN (Reason: pain) Qty: 30 0RF morphine 15 mg tablet 15 mg PO Q8H PRN (Reason: pain) Qty: 15 0RF Rx Instructions: Partial Fill upon patient request. cyclobenzaprine 10 mg tablet 10 mg PO BEDTIME PRN (Reason: muscle spasms) buspirone 10 mg tablet 10 mg PO TID PRN (Reason: anxiety) naproxen [Naprosyn] 500 mg tablet 500 mg PO BID Qty: 20 0RF ondansetron 4 mg tablet,disintegrating 4 mg PO TID PRN (Reason: nausea and vomiting) 5 Days Qty: 10 0RF oxycodone 5 mg tablet 5 mg PO Q8H PRN (Reason: pain) Qty: 7 0RF Rx Instructions: Partial Fill upon patient request. oxycodone 5 mg tablet 5 mg PO Q8H PRN (Reason: pain) Qty: 5 0RF Rx Instructions: Partial Fill upon patient request. tramadol 50 mg tablet 50 mg PO Q12H PRN (Reason: pain) Qty: 30 0RF (DME) leg brace Misc See Rx Instructions .Route Qty: 1 0RF Rx Instructions: As directed Referrals: Merly Carrington MD [Primary Care Provider, Internal Medicine] - 10 days Clinical Impression: Charcot Leanna Tooth muscular atrophy; Chronic pain syndrome Print Language: Chilean
[2025-07-19 14:40] LABS: MANUAL DIFF FLAG NO
[2025-07-19 14:44] LABS: Hematocrit 34.3 % (37.0-47.0); Hemoglobin 11.3 g/dl (12.0-16.0); Imm Gran Abs Auto 0.03 X10*3/uL (0.00-0.03); Imm Gran Pct Auto 0.3 % (0.0-0.4); Lymphocytes Absolute Auto 2.5 X10*3/uL (1.2-4.9); Mean Corpuscular HGB Conc 32.9 g/dl (31.0-35.0); Mean Corpuscular Hemoglobin 28.5 pg (27.0-33.0); Mean Corpuscular Volume 86.6 fL (80.0-98.0); NRBC Abs Auto 0.000 X10*3/uL (0.0-0.012); NRBC Pct Auto 0.0 /100WBC (0.0-0.2); Platelet Count 374 X10*3/uL (160-400); Red Blood Count 3.96 X10*6/uL (4.20-5.50); White Blood Count 9.7 X10*3/uL (4.8-10.8)
[2025-07-19 15:04] LABS: Troponin-I High Sensitivity 20.5 ng/L (<3.5-17.0)
[2025-07-19 15:09] LABS: Alanine Aminotransferase 16 U/L (0-31); Albumin Level 3.7 g/dL (3.5-5.0); Alkaline Phosphatase 78 U/L (39-117); Anion Gap 12 (12-20); Aspartate Amino Transferase 18 U/L (5-31); Blood Urea Nitrogen 10 mg/dL (9-16); Calcium 8.4 mg/dL (8.4-10.2); Carbon Dioxide 24 mmol/L (22-29); Chloride 107 mmol/L (96-108); Creatinine Clr Calc Pharmacy 110.8; Estimated Glomerular Filt Rate > 60; Lipase 25 U/L (8-78); Potassium 4.1 mmol/L (3.3-5.1); Sodium 139 mmol/L (135-145); Total Protein 6.4 g/dL (6.5-8.0)
[2025-07-19 15:21] LABS: Resp Syncy Virus RNA Qual PCR NEGATIVE (Negative); SARS COV2 PCR INHOUSE NEGATIVE (Negative)
[2025-07-19 18:17] LABS: Troponin-I High Sensitivity 21.4 ng/L (<3.5-17.0)
--- OUTSIDE RECORDS SUMMARY | 2025-07-19 19:34 | XMS_ITS | Clinical Summary ---
Author Organization [facility] ity Address [address] [place] [address] Care Team Providers Care Community Outreach Director Name Role Phone Unavailable Primary Care Provider [...]
[2025-07-19 19:52] VITALS: BP 126/79; PULSE 79; RESP 16; TEMP 36.9; O2SAT 99
--- NOTE | 2025-07-19 20:33 | ECG_ITS ---
Test Reason : CHEST PAIN Blood Pressure : */* mmHG Vent. Rate : 71 BPM Atrial Rate : 71 BPM P-R Int : 190 ms QRS Dur : 72 ms QT Int : 366 ms P-R-T Axes : 56 65 50 degrees QTcB Int : 397 ms Sinus rhythm with marked sinus arrhythmia Septal infarct , age undetermined Abnormal ECG When compared with ECG of 19-Jul-2025 14:24, Premature atrial complexes are no longer Present Referred By: Rory Crouch Electronically Signed By: ARPITA GROVES MD
[2025-07-19 22:21] LABS: Troponin-I High Sensitivity 16.8 ng/L (<3.5-17.0)
[2025-07-19 23:18] VITALS: BP 134/79; PULSE 94; RESP 18; TEMP 37; O2SAT 98
--- NOTE | 2025-07-19 23:44 | PC.NURSE ---
assumed care of pt 2315. attempt to d/c patient however she is tearful reporting pain has not improved and currently 07/09. pt states she is frustrated with pain. MD Murillo notified and to bedside for eval.
[2025-07-20 00:06] VITALS: BP 134/79; PULSE 94; RESP 18; TEMP 37; O2SAT 98
[2025-07-20 05:58] LABS: Lyme Abs Screen <0.90 index
[2025-07-20 18:04] LABS: Lyme Disease DNA PCR NOT DETECTED (NOT DETECTED)
== END 2025-07-20 00:07 | disposition home or self-care (01) ==
PROVIDERS: Emergency Medicine; Physician Assistant; Emergency Provider Emergency Medicine; PCP Internal Medicine
DX: G60.0 Hereditary motor and sensory neuropathy (principal); G89.29 Other chronic pain; R07.89 Other chest pain; I49.8 Other specified cardiac arrhythmias; R10.2 Pelvic and perineal pain; Z79.899 Other long term (current) drug therapy; Z03.818 Encounter for observation for suspected exposure to other biological agents ruled out
CPT/HCPCS: 36415; 71046; 80053; 82550; 83690; 84484; 84702; 85025; 86617; 86618; 87637; 93005; 96365; 96366; 96375; 99284; J0131; J1100; J1171; J1885

== ENCOUNTER → 2025-07-19 13:58 | Outpatient (BNV) | payer OTHER, SELFPAY | PROVIDERS: PCP Internal Medicine; Visit Provider Radiology Diagnostic Radiology | DX: R07.9 Chest pain, unspecified (principal) | CPT/HCPCS: 71046 ==

== ENCOUNTER → 2025-07-19 13:58 | Outpatient (BNV) | payer OTHER, SELFPAY | PROVIDERS: PCP Internal Medicine; Visit Provider Internal Medicine Cardiovascular Disease | DX: I49.9 Cardiac arrhythmia, unspecified (principal) | CPT/HCPCS: 93010 ==

== ENCOUNTER 2025-08-15 08:34 | Emergency (ER) | payer OTHER, SELFPAY ==
--- OUTSIDE RECORDS SUMMARY | 2024-08-29 06:30 | XMS_ITS ---
Author Organization [facility] Address [address] [place] [phone] Care Team Providers Care Well Reactivator Operator Name Role Phone Merly Carrington Primary Care Provider Unavailab Cas Bell [phone] REASON FOR VISIT screening, fam hx colon ca Encounters Encounter Location Date Provider Diagnosis [facility] Out[facility] [address] [place] [id number] 08/29/2024 Cas Michel Plan Of Treatment No Information Progress Notes * DIANA BARAJASILDOB: (35 yo F)Acc No.[id number]:08/29/2024 COLON WITH MAC Patient: ROBY PEREZ Provider: Marie Michel MD :1990 A ge:34 Y S ex:Female Date:08/29/2024 Address:[address] [place] [address] , [id number] Pcp:Merly Carrington Subjective: * Chief Complaints: * [...] Pending * Provider: Marie Michel MD Date: 08/29/2024 Generated for Tate fajardo/Faxing/eTransmitting on: 0 08/15/2025 01:25 PM EDT
--- OUTSIDE RECORDS SUMMARY | 2025-01-06 03:30 | XMS_ITS ---
Author Organization [facility] Address [address] [place] [address] Care Team Providers Care Visitor Services Information Assistant Name Role Phone Merly Carrington Primary Care Provider Unavailab Cas Bell [phone] REASON FOR VISIT screening,fam hx colon ca Encounters Encounter Location Date Provider Diagnosis [facility] Outpatient [address] [place] [phone] 01/06/2025 Cas Michel Plan Of Treatment No Information Progress Notes * DIANA BARAJASILDOB: (35 yo F)Acc No.[id number]:01/06/2025 COLON WITH MAC Patient: ROBY PEREZ Provider: Marie Michel MD :1990 A ge:34 Y S ex:Female Date:01/06/2025 Address:[address] [place] [address] , [id number] Pcp:Merly Carrington Subjective: * Chief Complaints: * [...] 01/06/2025 Generated for Tate fajardo/Faxing/eTransmitting on: 0 08/15/2025 01:25 PM EDT
--- NOTE | ~2025-08-15 | XR_ITS ---
EXAMINATION: XR CHEST CLINICAL INFORMATION: chest pain COMPARISON: July 19, 2025 TECHNIQUE: AP view portable view of the chest was obtained. FINDINGS: No consolidation, pleural effusion or pneumothorax. No hyperinflation. Cardiomediastinal silhouette size is normal. S-shaped curvature of the thoracic spine, mild. Patient's large body habitus/obesity. XR/XR chest 1V IMPRESSION: No acute airspace disease. Stable chest. Electronically signed by: Bahman White MD 08/15/2025 09:54 AM EDT
--- NOTE | 2025-08-15 08:37 | ECG_ITS ---
Test Reason : cp Blood Pressure : */* mmHG Vent. Rate : 92 BPM Atrial Rate : 92 BPM P-R Int : 170 ms QRS Dur : 76 ms QT Int : 340 ms P-R-T Axes : 61 58 55 degrees QTcB Int : 420 ms Normal sinus rhythm Cannot rule out Anterior infarct (cited on or before 19-Jul-2025) Abnormal ECG When compared with ECG of 19-Jul-2025 20:53, No significant change was found Referred By: Generic ED Physician Electronically Signed By: CECI GRANDE
[2025-08-15 08:49] VITALS: BP 146/77; PULSE 94; RESP 16; TEMP 36.6; O2SAT 98; BMI 47.2
[2025-08-15 09:39] VITALS: BP 152/69; PULSE 86; RESP 18; O2SAT 98
--- NOTE | 2025-08-15 09:42 | PC.NURSE ---
35 F presents to ED with all over body pain, especially in the chest, ribs, and right face, since Fridays. pt sts n/v and diarrhea as well. Pt has fibromyalgia and believes this to be a flare up. Pt does also use marijuana daily. A+Ox4, anxious, cooperative. RR even and unlabored, denies SOB. Pt ambulates independently. pt also c/o of central abdomen pain from vomitting.
--- NOTE | 2025-08-15 09:44 | ED_ITS ---
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 She notes she has been dealing with sig stress at home due to the illness of her child. She notes she has worsening chronic pain and was started on 800mg TID of gabapentin but states she needs better pain control. She has tried edibles without relief. She takes no narcotics at home but has asked her PCP for a pain management referral that has not happened. She is here with another exacerbation of her pain. She denies any drug use outside of her prescriptions. She has these flare ups frequently MD complaint: pain flare Onset (ago): day(s) (few) Location: head, chest, back, upper extremity and lower extremity Radiation: non-radiation Severity: severe Quality: aching Pain Consistency: constant Relieving factors: none Exacerbating factors: movement Associated symptoms: nausea/vomiting Treatments prior to arrival: none Related Data Home Medications ?Medication ?Instructions ?Recorded ?Confirmed buspirone 10 mg tablet 10 mg PO TID PRN anxiety 12/20/24 cyclobenzaprine 10 mg tablet 10 mg PO BEDTIME PRN musc le spasms 07/25/24 12/20/24 Previous Rx's ?Medication ?Instructions ?Recorded aripiprazole 10 mg tablet (Abilify) 10 mg PO BEDTIME # 30 tabs 01/29/23 bupropion HCl 150 mg 24 hr tablet, 150 mg PO QAM #30 t abs 01/29/23 extended release gabapentin 800 mg tablet 800 mg PO TID #90 tabs 01/29 naproxen 500 mg tablet (Naprosyn) 500 mg PO BID #20 ta bs 10/05/24 acetaminophen 500 mg tablet 1,000 mg (2 x 500 mg) PO Q 8H PRN 11/17/24 (Tylenol Extra Strength) pain #30 tabs ibuprofen 600 mg tablet 600 mg PO Q6H PRN pain #30 t abs 11/17/24 tramadol 50 mg tablet 50 mg PO Q12H PRN pain #30 t abs 12/07/24 leg brace #1 ea 12/20/24 morphine 15 mg immediate release 15 mg PO Q8H PRN pain #15 tabs 03/13/25 tablet ondansetron 4 mg disintegrating 4 mg PO TID PRN nausea and 05/30/25 tablet vomiting 5 days #10 tabs oxycodone 5 mg tablet 5 mg PO Q8H PRN pain #7 tabs 05/30/25 oxycodone 5 mg tablet 5 mg PO Q8H PRN pain #5 tabs 06/27/25 buprenorphine 2 mg-naloxone 0.5 mg 1 film buccal DAILY #14 ea 08/15/25 sublingual film (Suboxone) cyclobenzaprine 10 mg tablet 10 mg PO BID PRN muscle s pasm #30 08/15/25 tabs Allergies Allergy/AdvReac Type Severity Reaction Status Date / Time apple Allergy Throat Verified 08/15/25 08:50 itches Review of Systems 2 Review of Systems: Constitutional : No Fever, No Chills, No Fatigue ENT/Mouth : No sore throat, No Rhinorrhea Eyes: No Eye Pain, No Swelling, No Redness Cardiovascular : pos Chest Pain, No SOB, No Dyspnea on Exertion Respiratory : No Cough, No Sputum Gastrointestinal : pos Nausea, pos Vomiting, No Diarrhea, No abdominal Pain Genitourinary : No Dysuria, No Urinary Frequency, No Hematuria, Musculoskeletal : pos joint pain, pos Myalgias, No Joint Swelling Skin : No Skin Lesions, No rash Neuro : No Weakness, No Numbness, No Dizziness, no Headache Psych : No Anxiety/Panic, No Depression All other systems reviewed and are negative [facility] Past Medical History Attestation statement: The following information was validated with the patient. Source: old records reviewed Medical History PTSD (post-traumatic stress disorder) Anxiety Depression Charcot Leanna Tooth muscular atrophy Family History Family History Mother Colon cancer Social History Social History Household Members: Children Household Members Other:: Pt's son,sister and brother in law Housing: Apartment Alcohol intake: never Patient Tobacco Use Status: Former Tobacco user Tobacco use type: Cigarette Smoked in Last 30 Days: No Second Hand Smoke Exposure: No Use of substances other than those prescribed or required for medical reasons: Yes Substance Use Type: Marijuana Substance Use Frequency: Daily Advance Directives: No Advance Directives Information Provided: No Do you have a plan to hurt others: No Plan Patient : No service: No Sexual orientation: Straight/Heterosexual Physical Exam ED Vital Signs: Vital Signs - 24 hr 08/15/25 08:49 08/15/25 09:39 Temperature 98 F Pulse Rate 94 86 Respiratory Rate 16 18 Blood Pressure 146/77 H 152/69 H Pulse Oximetry 98 98 Oxygen Delivery Method Room Air Room Air BMI result Body Mass Index 47.2 Appearance: Alert. Oriented X3. No acute distress. anxious in pain Eyes: Pupils equal, round and reactive to light. ENT: Pharynx normal. Neck: Normal inspection. Neck supple. CVS: Normal heart rate and rhythm. Pulses normal. Respiratory: No respiratory distress. Breath sounds normal. Abdomen: Soft and nontender. Skin: Skin warm and dry. Normal skin color. N Extremities: No lower extremity edema. she does have atrophy and both feet are plantar flexed Neuro: Oriented X 3. symmetric weakness. No motor deficit. No sensory deficit. Medications Administered Discontinued Medications Generic Name Dose Route Start Last Admin Trade Name Brenda PRN Reason Stop Dose Admin Buprenorphine/Naloxone 1 film 08/15/25 09:57 08/15/25 10:17 Buprenorphine/Naloxone 4/1 Mg Film SUBLINGUAL 08/15/25 09:58 1 film ONCE ONE Administration Cyclobenzaprine HCl 10 mg 08/15/25 10:40 08/15/25 11:00 Cyclobenzaprine Hcl 10 Mg Tablet PO 08/15/25 10:41 10 mg ONCE ONE Administration Medical Decision Making Medical Decision Making MDM Narrative: 35 yo female with PMH of depression, charcot leanna tooth muscular atrophy, recurrent falls and hx of ankle fractures, PTSD, prior benzo and alcohol abuse now here with chronic pain flare up again at this time I am going to obtain labs, CXR, EKG, start on suboxone for better pain control. Will have addiction consult service help as well to get her chronic pain under control Differential Diagnosis Differential Diagnoses: The differential diagnosis associated with the presentation includes chronic pain, stress Admission/Observation Consideration of admission/observation: Escalation of care including admission/observation considered we were able to get the patient Rx for suboxone and she will get an appointment Samantha Alvarado GROMMET MAN to put in Rx for patient work up reassuring stable for DC patient is relaxed and much more comfortable on exam Consult Healthcare Provider Management of the patient was discussed with: Guest Relations Agent Lab Data MDM Lab Attestation statement: I reviewed the patient's lab results. 08/15/25 10:08 08/15/25 10:08 Labs: Lab Results 08/15/25 08/15/25 Range/Units 09:09 10:08 WBC 10.4 (4.8-10.8) X10*3/uL RBC 4.28 (4.20-5.50) X10*6/uL Hgb 12.2 (12.0-16.0) g/dl Hct 35.8 L (37.0-47.0) % MCV 83.6 (80.0-98.0) fL MCH 28.5 (27.0-33.0) pg MCHC 34.1 (31.0-35.0) g/dl RDW 13.9 (11.0-16.0) % Plt Count 410 H (160-400) X10*3/uL MPV 8.6 L (9.4-12.3) fL Immature Gran % (Auto) 0.4 (0.0-0.4) % Neut % (Auto) 69.5 (45-73) % Lymph % (Auto) 20.3 (20-40) % [place] % (Auto) 8.3 (2-11) % Eos % (Auto) 1.1 (0-4) % Baso % (Auto) 0.4 (0-2) % Lymph # (Auto) 2.1 (1.2-4.9) X10*3/uL [place] # (Auto) 0.9 (0.1-1.2) X10*3/uL Eos # (Auto) 0.1 (0.0-0.4) X10*3/uL Baso # (Auto) 0.0 (0.0-0.2) X10*3/uL Abs Immat Gran (auto) 0.04 H (0.00-0.03) X10*3/uL Absolute Neuts (auto) 7.3 (2.0-8.3) x10*3/uL Absolute Nucleated RBC 0.000 (0.0-0.012) X10*3/uL Nucleated RBC % (auto) 0.0 (0.0-0.2) /100WBC Sodium 137 (135-145) mmol/L Potassium 4.4 (3.3-5.1) mmol/L Chloride 106 (96-108) mmol/L Carbon Dioxide 24 (22-29) mmol/L Anion Gap 11 L (12-20) BUN 9 (9-16) mg/dL Creatinine 0.65 (0.5-1.4) mg/dL Estim Creat Clear Calc 141.2 Estimated GFR > 60 Random Glucose 104 (60-115) mg/dL Calcium 8.7 (8.4-10.2) mg/dL Troponin I High Sens < 2.7 D (<3.5-17.0) ng/L Influenza Type A (PCR) NEGATIVE (Negative) Influenza Type B (PCR) NEGATIVE (Negative) RSV RNA Qual (PCR) NEGATIVE (Negative) SARS-CoV-2 RNA (RT-PCR) NEGATIVE (Negative) Independent Interpretation I performed an independent interpretation of an: EKG and Plain X-Ray (normal ) Interpretation: Rate: 92 Rhythm: NSR [place]: normal Normal P waves. Normal LACIE. Normal QRS complex. ST T wave : normal no ANTONIO qTC: 420 prior studies: no acute ischemia The study has been interpreted contemporaneously by me. . Radiology Impression Discussion of test interpretation with radiology: I have reviewed the radiologist's reading. External Record Review External record reviewed: Outpatient record Prescription Management I considered prescription management with: Pain Medication and Other Discharge Plan Discharge Clinical Impression: Charcot Leanna Tooth muscular atrophy Patient Disposition: Home, Self-Care Instructions: Buprenorphine/Naloxone (Into the mouth), Neuromuscular Disease (DC) Additional Instructions: your labs were reassuring your xray was normal you were started on suboxone to manage your chronic pain follow up in the clinic as planned return for any worsening symptoms or concerns Prescriptions: New buprenorphine-naloxone [Suboxone] 2-0.5 mg film 1 film buccal DAILY Qty: 14 0RF cyclobenzaprine 10 mg tablet 10 mg PO BID PRN (Reason: muscle spasm) Qty: 30 0RF No Action aripiprazole [Abilify] 10 mg tablet 10 mg PO BEDTIME Qty: 30 0RF Patient Comments: Patient stated she takes in the morning. bupropion HCl 150 mg tablet extended release 24 hr 150 mg PO QAM Qty: 30 0RF gabapentin 800 mg tablet 800 mg PO TID Qty: 90 0RF ibuprofen 600 mg tablet 600 mg PO Q6H PRN (Reason: pain) Qty: 30 0RF acetaminophen [Tylenol Extra Strength] 500 mg tablet 1,000 mg PO Q8H PRN (Reason: pain) Qty: 30 0RF morphine 15 mg tablet 15 mg PO Q8H PRN (Reason: pain) Qty: 15 0RF Rx Instructions: Partial Fill upon patient request. cyclobenzaprine 10 mg tablet 10 mg PO BEDTIME PRN (Reason: muscle spasms) buspirone 10 mg tablet 10 mg PO TID PRN (Reason: anxiety) naproxen [Naprosyn] 500 mg tablet 500 mg PO BID Qty: 20 0RF ondansetron 4 mg tablet,disintegrating 4 mg PO TID PRN (Reason: nausea and vomiting) 5 Days Qty: 10 0RF oxycodone 5 mg tablet 5 mg PO Q8H PRN (Reason: pain) Qty: 7 0RF Rx Instructions: Partial Fill upon patient request. oxycodone 5 mg tablet 5 mg PO Q8H PRN (Reason: pain) Qty: 5 0RF Rx Instructions: Partial Fill upon patient request. tramadol 50 mg tablet 50 mg PO Q12H PRN (Reason: pain) Qty: 30 0RF (DME) leg brace Misc See Rx Instructions .Route Qty: 1 0RF Rx Instructions: As directed Referrals: [facility] [Provider Group] Referral Note: they should call you to schedule appointment Print Language: Citizen Of [place]
[2025-08-15 09:52] LABS: Resp Syncy Virus RNA Qual PCR NEGATIVE (Negative); SARS COV2 PCR INHOUSE NEGATIVE (Negative)
[2025-08-15 10:15] LABS: MANUAL DIFF FLAG NO
[2025-08-15 10:17] LABS: Hematocrit 35.8 % (37.0-47.0); Hemoglobin 12.2 g/dl (12.0-16.0); Imm Gran Abs Auto 0.04 X10*3/uL (0.00-0.03); Imm Gran Pct Auto 0.4 % (0.0-0.4); Lymphocytes Absolute Auto 2.1 X10*3/uL (1.2-4.9); Mean Corpuscular HGB Conc 34.1 g/dl (31.0-35.0); Mean Corpuscular Hemoglobin 28.5 pg (27.0-33.0); Mean Corpuscular Volume 83.6 fL (80.0-98.0); NRBC Abs Auto 0.000 X10*3/uL (0.0-0.012); NRBC Pct Auto 0.0 /100WBC (0.0-0.2); Platelet Count 410 X10*3/uL (160-400); Red Blood Count 4.28 X10*6/uL (4.20-5.50); White Blood Count 10.4 X10*3/uL (4.8-10.8)
[2025-08-15] MEDS: Buprenorphine/Naloxone 4/1 mg FILM 1 FILM SUBLINGUAL (10:17)
[2025-08-15 10:30] LABS: Anion Gap 11 (12-20); Blood Urea Nitrogen 9 mg/dL (9-16); Calcium 8.7 mg/dL (8.4-10.2); Carbon Dioxide 24 mmol/L (22-29); Chloride 106 mmol/L (96-108); Creatinine Clr Calc Pharmacy 141.2; Estimated Glomerular Filt Rate > 60; Potassium 4.4 mmol/L (3.3-5.1); Sodium 137 mmol/L (135-145)
--- NOTE | 2025-08-15 11:06 | HO.ADDICT_ITS ---
History of Present Illness Date of Service: Chief Complaint: Chest pain, facial pain R side Reason for Consult: chronic pain at risk for OUD Sources of Information: patient interviewed and chart reviewed HPI Narrative: Patient is a 35 year old female with medical history that includes Charcot Leanna Tooth syndrome and fibromyalgia (per patient report) who presented to [facility] ED reporting pain exacerbation. Consult requested as there was concern related to increase in patient ED visits and need for opiates to address reported pain flare ups. Chart review shows patient has been to [facility] ED 6 times since February 2025 related to pain. Patient seen in room 1 of main ED. She is awake, alert, engaged in interview. She reports pain flare ups have been increasing in frequency and duration, and impacting overall quality of life and requiring her to miss work often. She states that when she has come to the ED and given Dilaudid or morphine, pain is managed, however returns once home. She reports that when pain is intensified, she will also have vomiting and loose stools. ED provider ordered and administered Suboxone 4mg prior to being seen by t/w. Patient states that medication is helping pain, however she feels a little sleepy, which is not uncommon. She states she has never trialled buprenorphine and denies any history of OUD. 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 Labs reviewed Appeared comfortable. No sedation noted, although patient stated she felt like she could fall asleep. Provided education about medication, effectiveness and limitations. Past Psychiatric History: IPLOC x 6 - most recent admission to [facility] in 11/2022, 2 admissions in [place], remainder were early admissions in [place] starting at age 18 PHP x2 at [facility] in 11/2022 and in [place] Reports h/o one intentional (serious) suicide attempt by overdose at age 21 yo (required stomach pumped), preceded by 2 unintentional overdoses (all in the context of alcohol use) around age [age] Hx SIB as a teenager Hx of detoxing from benzodiazepine dependence in early 20's Has new intake appointments for therapist and provider through [facility] Med Trials: lithium , Remeron (vivid dreams), hydroxyzine, prazosin, (both had been helpful in past), Seroquel, Lyrica, Zoloft CURRENT MEDICATIONS: Abilify 10 mg qhs Wellbutrin XL 150 mg qam Buspar 10 mg TID prn anxiety trazodone 100-200 mg qhs prn insomnia gabapentin 800 mg TID cyclobenzaprine 10 mg qhs prn spasms ibuprofen 800 mg TID prn pain Medical Evaluation Reviewed: Yes Diagnostics Vital Signs (24Hr): Vital Signs - 24 hr 08/15/25 08:49 08/15/25 09:39 Temperature 98 F Pulse Rate 94 86 Respiratory Rate 16 18 Blood Pressure 146/77 H 152/69 H Pulse Oximetry 98 98 Oxygen Delivery Method Room Air Room Air BMI result Body Mass Index 47.2 Labs 08/15/25 10:08 08/15/25 10:08 Labs: Laboratory Results - last 48 hr 08/15/25 08/15/25 09:09 10:08 WBC 10.4 RBC 4.28 Hgb 12.2 Hct 35.8 L MCV 83.6 MCH 28.5 MCHC 34.1 RDW 13.9 Plt Count 410 H MPV 8.6 L Immature Gran % (Auto) 0.4 Neut % (Auto) 69.5 Lymph % (Auto) 20.3 [place] % (Auto) 8.3 Eos % (Auto) 1.1 Baso % (Auto) 0.4 Lymph # (Auto) 2.1 [place] # (Auto) 0.9 Eos # (Auto) 0.1 Baso # (Auto) 0.0 Abs Immat Gran (auto) 0.04 H Absolute Neuts (auto) 7.3 Absolute Nucleated RBC 0.000 Nucleated RBC % (auto) 0.0 Sodium 137 Potassium 4.4 Chloride 106 Carbon Dioxide 24 Anion Gap 11 L BUN 9 Creatinine 0.65 Estim Creat Clear Calc 141.2 Estimated GFR > 60 Random Glucose 104 Calcium 8.7 Influenza Type A (PCR) NEGATIVE Influenza Type B (PCR) NEGATIVE RSV RNA Qual (PCR) NEGATIVE SARS-CoV-2 RNA (RT-PCR) NEGATIVE Imaging Radiology Impressions: ITS Impressions Chest X-Ray 08/15/25 09:38 IMPRESSION: No acute airspace disease. Stable chest. Electronically signed by: Bahman White MD 08/15/2025 09:54 AM EDT Medications Medications Current Medications Naloxone HCl (Naloxone Hcl Nasal Take Home 4 Mg [place]) 8 mg NOSTRILALT ONCE ONE Stop: 08/15/25 11:06 Allergies Allergies Allergy/AdvReac Type Severity Reaction Status Date / Time apple Allergy Throat Verified 08/15/25 08:50 itches Assessment & Plan Assessment & Plan (1) Opioid dependence: Status: Acute Code(s): F11.20 - Opioid dependence, uncomplicated Assessment and Plan: * Discussed buprenorphine. Dosing, side effects, goals of treatment and risk of developing dependance. Patient wants to move forward with medication * suboxone 2mg QD -take 1/2 film BID -Comp Care to determine ongoing dosing * [facility] consult to schedule appt and follow up-- * Take home narcan Total time managing care of this patient today __35__ minutes. PMFSH Past Medical History Medical History PTSD (post-traumatic stress disorder) Anxiety Depression Charcot Leanna Tooth muscular atrophy Family History Family History Mother Colon cancer Social History Social History Household Members: Children Household Members Other:: Pt's son,sister and brother in law Housing: Apartment Alcohol intake: never Patient Tobacco Use Status: Former Tobacco user Tobacco use type: Cigarette Smoked in Last 30 Days: No Second Hand Smoke Exposure: No Use of substances other than those prescribed or required for medical reasons: Yes Substance Use Type: Marijuana Substance Use Frequency: Daily Advance Directives: No Advance Directives Information Provided: No Do you have a plan to hurt others: No Plan Patient : No service: No Sexual orientation: Straight/Heterosexual
[2025-08-15 11:34] LABS: Troponin-I High Sensitivity < 2.7 ng/L (<3.5-17.0)
[2025-08-15] MEDS: Naloxone HCl Nasal TAKE HOME 4 MG SPRAY 8 MG NOSTRILALT (12:10)
[2025-08-15 12:11] VITALS: BP 129/68; PULSE 85; RESP 18; TEMP -17.7; TEMP 0; O2SAT 97
--- OUTSIDE RECORDS SUMMARY | 2025-08-15 13:25 | XMS_ITS | Clinical Summary ---
Author Organization Located Within [facility] Address [address] [address] Phone Care Team Providers Care Back Tender Pulp Drier Name Role Phone Merly Carrington MD Primary Care Provider Social History Tobacco Use Types Packs/Day Years Used Date Smoking Tobacco: Never Assessed Education Answer Date Recorded Are you interested in more education? Not on madina e 07/25/2025 Are you concerned about learning? Not on file 07/25/2025 No 07/25/2025 No 07/25/2025 Digital Access Answer Date Recorded No 07/25/2025 No 07/25/2025 Reliable internet access at home? Not on file 07/25/2025 Device with a working camera? Not on file Comments Unknown Sex and Gender Information Value Date Recorded Sex Assigned at Not on file Legal Sex Female 3:48 PM EDT Gender Identity Not on file Sexual Orientation Not on file Plan of Treatment Upcoming Encounters Date Type Department Care Team (Late st Contact Info) Description 02/14/2026 3:00 PM EDT Office Visit [facility] [address] [place] [address] Darrion Dowling MD [address] [facility] [address] [place] [address] [email or web address] Health Maintenance Due Date Last Done Comments Adult Td,Tdap Booster 1990 DEPRESSION SCREENING 2002 SMOKING Hx and SMOKELESS TOB ACCO SCREENING 2003 HEPATITIS C SCREENING 2008 HIV ONE-TIME SCREENING (18-6 5 YEARS) 2008 PAP SMEAR 2011 INFLUENZA VACCINE (#1) 2025 COVID-19 VACCINE (2023-2 5 season) 2025 HEPATITIS A VACCINES Aged Out No long er eligible based on patient's age to complete this topic HIB VACCINES Aged Out No longer eligi ble based on patient's age to complete this topic MENINGOCOCCAL VACCINES (ACWY) Aged Out No longer eligible based on patient's age to complete this topic MENINGOCOCCAL VACCINES (B) Aged Out N o longer eligible based on patient's age to complete this topic PNEUMOCOCCAL VACCINES (0-49 years) Aged Out No longer eligible based on patient's age to complete this topic Medical Devices Not on file Insurance [facility] [place] [id number] [facility] Care Teams Back Tender Pulp Drier Relationship Specialty Start Date End Date Merly Carrington MD [address] [place] [address] [place] [address] PCP - General Internal Medicine 07/24/25 Additional Source Comments The information contained in this document represents components of the legal health record. It is not the complete legal health record.Located Within [facility]
--- OUTSIDE RECORDS SUMMARY | 2025-08-15 13:26 | XMS_ITS | Patient Health Record ---
Author Organization [facility] Address [address] [place] [address] Care Team Providers Care Jig Grinder Name Role Phone Maomikie Merly Primary Care Provider UnavailCas Angel Unavailable [phone] Allergies No Known Allergies Reason For Referral No Information Medications Medication SIG (Take, Route, Frequency, Duration) [...] Problem Screening for malignant neoplasm of colon (749363709) Encounter for screening for malignant neoplasm of colon (Z12.11) Active confirmed Problem Pre-procedure evaluation check (995064402) Encounter for other preprocedural examination (Z01.818) Active confirmed Problem Family history of malignant neoplasm of gastrointestinal tract (878358107) Family history of colon cancer in mother (Z80.0) Active confirmed Encounters Encounter Location Date Provider Diagnosis [facility] [address] [place] [address] 08/29/2024 Cas Michel [facility] [address] [place] [address] 01/04/2025 Cas Michel Plan Of Treatment Future Test Test Name Order Date COLONOSCOPY 05/05/2024 Insurance Providers Payer Name Payer Address Payer Phone Subscriber Number Group Number Insured Name Patient Relationship to Insured Coverage Start Date Coverage End Date [facility]ICA[employer] OF [facility] [address] [place] [phone] [id number] ROBY BARAJAS Self - patient is the insured Medical (General) History Medical History History ICD Code Denies LA,DM,CVA,Lung disease,renal dise ase Charcot Leanna Tooth disease--affects leg s, hands, and balance Depression/PTSD Surgical History Surgery Date(Month/Year)
--- OUTSIDE RECORDS SUMMARY | 2025-08-15 13:26 | XMS_ITS | Clinical Summary ---
Author Organization [facility] Address [address] [place] [address] Care Team Providers Care Bilingual Hr Generalist Name Role Phone Unavailable Primary Care Provider [...] 06/07/2022 Social Influencers of Health Screening 06/07/2022 Depression Screening 11/30/2024 COVID-19 Vaccine ( - 2023-2 5 season) 2025 Influenza Vaccine (#1) 2025 08/19/2019 HIB Vaccines [...]
== END 2025-08-15 12:12 | disposition home or self-care (01) ==
PROVIDERS: Emergency Provider Emergency Medicine; PCP Internal Medicine
DX: F11.20 Opioid dependence, uncomplicated (principal); G60.0 Hereditary motor and sensory neuropathy; R07.9 Chest pain, unspecified; Z91.81 History of falling; Z03.818 Encounter for observation for suspected exposure to other biological agents ruled out
CPT/HCPCS: 71045; 80048; 84484; 85025; 87637; 93005; 99284; 99285

== ENCOUNTER → 2025-08-15 08:37 | Outpatient (BNV) | payer OTHER, SELFPAY | PROVIDERS: Emergency Provider Emergency Medicine; PCP Internal Medicine; Visit Provider Internal Medicine | DX: R94.31 Abnormal electrocardiogram [ECG] [EKG] (principal); R07.9 Chest pain, unspecified | CPT/HCPCS: 93010 ==

== ENCOUNTER → 2025-08-15 09:35 | Outpatient (BNV) | payer OTHER, SELFPAY | PROVIDERS: Emergency Provider Emergency Medicine; PCP Internal Medicine; Visit Provider Radiology Diagnostic Radiology | DX: R07.9 Chest pain, unspecified (principal) | CPT/HCPCS: 71045 ==

== ENCOUNTER → 2025-08-15 10:11 | Outpatient (BNV) | payer OTHER, SELFPAY | PROVIDERS: Emergency Provider Emergency Medicine; PCP Internal Medicine; Visit Provider Nurse Practitioner Psychiatric/Mental Health | DX: F11.20 Opioid dependence, uncomplicated (principal) | CPT/HCPCS: 99282 ==

== ENCOUNTER 2025-08-18 09:30 | Outpatient (AMB) | payer OTHER, SELFPAY ==
--- OUTSIDE RECORDS SUMMARY | 2024-08-29 06:30 | XMS_ITS ---
Author Organization [facility] Address [address] [place] [phone] Care Team Providers Care Railroad Design Consultant Name Role Phone Merly Carrington Primary Care Provider Unavailab Cas Bell [phone] REASON FOR VISIT screening, fam hx colon ca Encounters Encounter Location Date Provider Diagnosis [facility] Out[place] [address] [place] [id number] 08/29/2024 Cas Michel Plan Of Treatment No Information Progress Notes * DIANA BARAJASILDOB: (35 yo F)Acc No.[id number]:08/29/2024 COLON WITH MAC Patient: ROBY PEREZ Provider: Marie Michel MD :1990 A ge:34 Y S ex:Female Date:08/29/2024 Address:[address] [place] [address] , [id number] Pcp:Merly Carrington Subjective: * Chief Complaints: * [...] 08/29/2024 Generated for Tate fajardo/Faxing/eTransmitting on: 0 08/18/2025 10:02 AM EDT
--- OUTSIDE RECORDS SUMMARY | 2025-01-06 03:30 | XMS_ITS ---
Author Organization [facility] Address [address] [place] [address] Care Team Providers Care Photolettering Machine Operator Name Role Phone Merly Carrington Primary Care Provider Unavailab Cas Bell [phone] REASON FOR VISIT screening,fam hx colon ca Encounters Encounter Location Date Provider Diagnosis [facility] Outpatient [address] [place] [phone] 01/06/2025 Cas Michel Plan Of Treatment No Information Progress Notes * DIANA BARAJASILDOB: (35 yo F)Acc No.[id number]:01/06/2025 COLON WITH MAC Patient: ROBY PEREZ Provider: Marie Michel MD :1990 A ge:34 Y S ex:Female Date:01/06/2025 Address:[address] [place] [address] , [id number] Pcp:Merly Carrington Subjective: * Chief Complaints: * [...] MD Date: 0 01/06/2025 Generated for Tate fajardo/Faxing/eTransmitting on: 0 08/18/2025 10:02 AM EDT
[2025-08-18 10:01] VITALS: BP 128/82; PULSE 104; O2SAT 95; BMI 46.5
--- NOTE | 2025-08-18 10:01 | MHC.OFFVIS ---
Vital Signs 08/18/25 10:01 Height 5 ft 1 in Weight 246 lb BMI 46.5 BP 128/82 Pulse 104 H Pulse Oximetry (%) 95 Intake Visit Reasons: MAT intake Allergies apple Allergy (Verified 08/15/25 08:50) Throat itches HPI Comments Details: History of Present Illness The patient is a 35-year-old female presenting with difficulties related to opioid use disorder. 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 She experiences exacerbations of pain several times a year that are severe enough to require ER visits. She has been managing this with gabapentin 800 mg three times daily, though the efficacy varies. She comes to ER and feels needs narcotics but doesnt want to take them (OUD).She worries about withdrawal with them and with Suboxone as well but doesnt feel in control of episodes of pain . Recently, she started a Suboxone regimen, experiencing relaxation of cravings and discomfort at the cost of mild sedation and itchiness. 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 Additionally, she is exploring alternative options for pain management, such as marijuana edibles, and seeks specialized guidance on usage. Review of Systems - Musculoskeletal: Reports severe pain during exacerbations; reports muscular atrophy. - Neurological: Reports mild sedation with medication use. - Skin: Reports itchiness with current medication. - Ophthalmologic: Reports pain extending to eyelids during exacerbations. - Psychiatric: Denies depression today. Physical Exam - General- Appears well. - Vitals- Stable. Results Plan Patient was informed and verbally consented to the use of an ambient scribe for clinic note documentation during this visit. 1. Dyrstux-Gwyvz-Asakz Disease The patient is managing pain related to this disorder with gabapentin while avoiding narcotics. She is also exploring adjunctive therapy, such as marijuana edibles, for additional relief. 2. Fibromyalgia Pain management for fibromyalgia is ongoing with gabapentin; exploring medical marijuana for additional control due to partial relief provided by current therapies. 3. Opioid Use Disorder Suboxone use is helping with cravings and pain management; however, the patient experiences sedation and itchiness. The plan is to continue monitoring her response. Discussion Notes During the visit, we discussed the patient's pain management challenges, particularly in light of her opioid use disorder. Suboxone was reaffirmed as a beneficial medication for managing pain and cravings, albeit causing sedation and itchiness. I advised the patient to continue with her Suboxone trial over the weekend and to report any persisting side effects by the start of next week. Alternatives such as modifying the dosage of gabapentin and exploring marijuana edibles were considered as viable pain management strategies. Medical Decision Making In evaluating the patient's complex pain profile and opioid use disorder, it is crucial to maintain her medication regimen without compromising her ability to function professionally. We continue Suboxone and assess the viability of marijuana edibles as an adjunct therapy. A significant objective is minimizing exposure to narcotics while achieving comprehensive pain control and sustaining recovery progress. The plan includes monitoring for adverse reactions and evaluating the efficacy of therapies in addressing her symptoms. Patient Instructions - Continue Suboxone at prescribed dosage but report side effects on Thursday. - Take gabapentin as instructed, monitor for increased sedation. - Consult with marijuana specialists for advice on edible products. - Focus on maintaining non-narcotic pain relief to support professional role. - Return to the clinic next week or sooner if symptoms exacerbate. [facility] Medical History PTSD (post-traumatic stress disorder) Anxiety Depression Charcot Leanna Tooth muscular atrophy Family History Mother Colon cancer Social History Household Members: Children Household Members Other:: Pt's son,sister and brother in law Housing: Apartment Alcohol intake: never Patient Tobacco Use Status: Former Tobacco user Tobacco use type: Cigarette Second Hand Smoke Exposure: No Substance Use Type: Marijuana service: No Sexual orientation: Straight/Heterosexual Female Reproductive History Menstrual Age of Menarche: 13 Physical Exam Vital Signs: Last Vital Signs Pulse 104 H 08/18/25 10:01 BP 128/82 08/18/25 10:01 Pulse Ox 95 08/18/25 10:01 BMI result Body Mass Index 46.5 Assessment & Plan Assessment & Plan (1) Opioid dependence: Code(s): F11.20 - Opioid dependence, uncomplicated Category: Medical Plan: as above Plan na Coding Level of Care Code Est Pt Level 4 (99221) Diagnoses Opioid dependence F11.20
--- OUTSIDE RECORDS SUMMARY | 2025-08-18 10:02 | XMS_ITS | Clinical Summary ---
Author Organization [facility] ity Address [address] [place] [address] Care Team Providers Care Planer Hand Name Role Phone Unavailable Primary Care Provider [...] Screening 06/07/2022 Depression Screening 11/30/2024 COVID-19 Vaccine (1 - 2023-2 5 season) 2025 Influenza Vaccine (#1) 2025 08/19/2019 RSV Immunization Adult Patie nts (1 - 1-dose 75+ series) 2065 HIB Vaccines Aged Out No longer eligi [...]
--- OUTSIDE RECORDS SUMMARY | 2025-08-18 10:02 | XMS_ITS | Clinical Summary ---
Author Organization [facility] Address [address] [address] Phone Care Team Providers Care Treasury Management Sales Consultant Name Role Phone Merly Carrington MD Primary [...] Description 02/14/2026 3:00 PM EDT Office Visit [facility] [address] [place] [address] Darrion Dowling MD 55 [facility] [address] [place] [address] [email or web address] Health Maintenance Due Date Last Done Comments [...] topic Medical Devices Not on file Insurance [facility] [employer] [id number] [facility] [place] Care Teams Treasury Management Sales Consultant Relationship Specialty Start Date End Date Merly Carrington MD [address] [place] [address] [place] [address] PCP - General Internal Medicine 07/24/25 Additional Source Comments The information contained in this document represents components of the legal health record. It is not the complete legal health record.[facility]
--- OUTSIDE RECORDS SUMMARY | 2025-08-18 10:02 | XMS_ITS | Patient Health Record ---
Author Organization [facility] Address [address] [place] [address] Care Team Providers Care Keyboard Teacher Name Role Phone Maomikie Merly Primary Care Provider UnavailCas Angel Unavailable [phone] Allergies No Known Allergies Reason For Referral [...] Problem Screening for malignant neoplasm of colon (760588211) Encounter for screening for malignant neoplasm of colon (Z12.11) Active confirmed Problem Pre-procedure evaluation check (103244723) Encounter for other preprocedural examination (Z01.818) Active confirmed Problem Family history of malignant neoplasm of gastrointestinal tract (013888783) Family history of colon cancer in mother (Z80.0) Active confirmed Encounters Encounter Location Date Provider Diagnosis [facility] [address] [place] [address] 08/29/2024 Cas Michel [facility] [address] [place] [address] 01/04/2025 Cas Michel Plan Of Treatment Future Test Test Name Order Date COLONOSCOPY 05/05/2024 Insurance Providers Payer Name Payer Address Payer Phone Subscriber Number Group Number Insured Name Patient Relationship to Insured Coverage Start Date Coverage End Date [facility] [address] [place] [phone] [id number] ROBY BARAJAS Self - patient is the insured Medical (General) History Medical History History ICD Code Denies NV,DM,CVA,Lung disease,renal dise ase Charcot Leanna Tooth disease--affects leg s, hands, and balance Depression/PTSD Surgical History Surgery Date(Month/Year)
== END 2025-08-18 10:39 | disposition home or self-care (01) ==
LOC: HO.HCC 09:30
PROVIDERS: PCP Internal Medicine; Visit Provider Internal Medicine
DX: F11.20 Opioid dependence, uncomplicated (principal)
CPT/HCPCS: 99214

== ENCOUNTER 2025-09-01 10:41 | Outpatient (AMB) | payer OTHER, SELFPAY ==
--- OUTSIDE RECORDS SUMMARY | 2024-08-29 06:30 | XMS_ITS ---
Author Organization [facility] Address [address] [place] [id number] Care Team Providers Care Home Advisor Name Role Phone Merly Carrington Primary Care Provider Unavailab Cas Bell [phone] REASON FOR VISIT screening, fam hx colon ca Encounters Encounter Location Date Provider Diagnosis [facility] [address] [place] [phone] 08/29/2024 Cas Michel Plan Of Treatment No Information Progress Notes * DIANA BARAJASILDOB: (35 yo F)Acc No.[id number]:08/29/2024 COLON WITH MAC Patient: ROBY PEREZ Provider: Marie Michel MD :[id number] A ge:34 Y S ex:Female Date:08/29/2024 Address:[address] [place] [address] , [id number] Pcp:Merly Carrington Subjective: * Chief Complaints: * [...] Michel MD Date: 0 08/29/2024 Generated for Lilliani ng/Faxing/eTransmitting on: 1 11:39 AM EDT
--- OUTSIDE RECORDS SUMMARY | 2025-01-06 03:30 | XMS_ITS ---
Author Organization [facility] Address [address] [place] [address] Care Team Providers Care Mother Repairer Name Role Phone Merly Carrington Primary Care Provider Unavailab Cas Bell [phone] REASON FOR VISIT screening,fam hx colon ca Encounters Encounter Location Date Provider Diagnosis [facility] [place] [address] [place] [phone] 01/06/2025 Cas Michel Plan Of Treatment No Information Progress Notes * DIANA BARAJASILDOB: (35 yo F)Acc No.[id number]:01/06/2025 COLON WITH MAC Patient: ROBY PEREZ Provider: Marie Michel MD :1990 A ge:34 Y S ex:Female Date:01/06/2025 Address:[address] [place] [address] , [id number] Pcp:Merly Carrington Subjective: * Chief Complaints: * [...] 0 01/06/2025 Generated for Tate fajardo/Faxing/eTransmitting on: 1 11:39 AM EDT
--- NOTE | 2025-09-01 10:52 | MHC.OFFVIS ---
Vital Signs 09/01/25 10:57 Height 5 ft 1 in Weight 250 lb BMI 47.2 Pulse 80 Pulse Source Pulse Oximeter Pulse Oximetry (%) 98 Oxygen Delivery Method Room Air Intake Visit Reasons: MAT Allergies apple Allergy (Verified 09/01/25 10:57) Throat itches HPI Comments Details: History of Present Illness The patient is a 35-year-old female presenting with concerns regarding her Suboxone treatment for Opioid Use Disorder. She reported experiencing itching, which she believes is caused by naloxone in the Suboxone formulation. This adverse effect has led her to feel that the medication is not helping her. Concurrently, the patient has been dealing with chronic pain and frequently visiting the emergency room. She does not want to continue on Suboxone and has been provided instructions on how to taper off safely, with a plan to return for evaluation if needed. Her vital signs were noted to be stable, and she did not express concerns over other withdrawal symptoms. Review of Systems - Dermatologic: Reports itching. - General: Denies other withdrawal symptoms. Physical Exam Results Plan Patient was informed and verbally consented to the use of an ambient scribe for clinic note documentation during this visit. 1. Opioid Use Disorder Due to itching associated with Suboxone, the patient is advised to taper off the medication. Instruction on tapering was provided, emphasizing monitoring for withdrawal symptoms and addressing pain management during this transition. 2. Chronic Pain Syndrome With the patient's history of chronic pain and frequent ER visits, non-opioid alternatives for pain management have been advised. Continued monitoring and adjustments to her pain management plan will be addressed if needed. Discussion Notes I reviewed with the patient her current symptoms related to her Suboxone use, including the itching she experiences due to naloxone. We discussed her decision to discontinue Suboxone, and I provided guidance for tapering. The potential for withdrawal symptoms was discussed, and the importance of contacting me for any concerns while tapering was emphasized. We also discussed non-opioid alternatives for managing her chronic pain. The patient understands the plan and agrees to follow up as needed. Medical Decision Making The patient presented with concerns about her opioid use disorder treatment with Suboxone, specifically the adverse effect of itching. Her chronic pain and frequent ER visits necessitate a reassessment of her management plan. It was decided to discontinue Suboxone and explore non-opioid pain management strategies. The decision is influenced by her reported adverse effects and frequent ER visits. Instructions on tapering were given to mitigate withdrawal symptoms, and the patient was advised to return if issues arise. Patient Instructions - Follow the tapering schedule provided for Suboxone to stop safely. - Monitor for withdrawal symptoms and contact if any concerns arise. - Use non-opioid options to manage pain as you taper off Suboxone. - Return for further evaluation or if issues persist with pain management. [facility] Medical History PTSD (post-traumatic stress disorder) Anxiety Depression Charcot Leanna Tooth muscular atrophy Family History Mother Colon cancer Social History Household Members: Children Household Members Other:: Pt's son,sister and brother in law Housing: Apartment Alcohol intake: never Patient Tobacco Use Status: Former Tobacco user Tobacco use type: Cigarette Second Hand Smoke Exposure: No Substance Use Type: Marijuana service: No Sexual orientation: Straight/Heterosexual Female Reproductive History Menstrual Age of Menarche: 13 Physical Exam Vital Signs: Last Vital Signs Pulse 80 09/01/25 10:57 Pulse Ox 98 09/01/25 10:57 Oxygen Delivery Method Room Air 09/01/25 10:57 BMI result Body Mass Index 47.2 Assessment & Plan Assessment & Plan (1) Opioid dependence: Code(s): F11.20 - Opioid dependence, uncomplicated Category: Medical Plan as above Coding Level of Care Code Est Pt Level 3 (94631) Diagnoses Opioid dependence F11.20
[2025-09-01 10:57] VITALS: PULSE 80; O2SAT 98; BMI 47.2
--- OUTSIDE RECORDS SUMMARY | 2025-09-01 11:39 | XMS_ITS | Clinical Summary ---
Author Organization [facility] ity Address [address] [place] [address] Care Team Providers Care Sports Media Name Role Phone Unavailable Primary Care Provider [...]
--- OUTSIDE RECORDS SUMMARY | 2025-09-01 11:39 | XMS_ITS | Clinical Summary ---
Author Organization [facility] Address [address] [address] Phone Care Team Providers Care Derrick Follower Name Role Phone Merly Carrington MD Primary [...] Description 02/14/2026 3:00 PM EDT Office Visit [facility] Neuromuscular Service [address] [place] [address] Darrion Dowling MD 55 [facility] [address] [place] [address] [email or web address] Health Maintenance Due Date Last Done Comments [...] topic Medical Devices Not on file Insurance [facility] [employer] [id number] [facility] PL[facility] Care Teams Derrick Follower Relationship Specialty Start Date End Date Merly Carrington MD [address] [place] [address] [place] [address] PCP - General Internal Medicine 07/24/25 Additional Source Comments The information contained in this document represents components of the legal health record. It is not the complete legal health record.[facility]
--- OUTSIDE RECORDS SUMMARY | 2025-09-01 11:39 | XMS_ITS | Patient Health Record ---
Author Organization [facility] Address [address] [place] [address] Care Team Providers Care Linux Systems Analyst Name Role Phone Maomikie Merly Primary Care Provider UnavailCas Angel Unavailable [phone] Allergies No Known Allergies Reason For Referral [...] Problem Screening for malignant neoplasm of colon (371366137) Encounter for screening for malignant neoplasm of colon (Z12.11) Active confirmed Problem Pre-procedure evaluation check (026194987) Encounter for other preprocedural examination (Z01.818) Active confirmed Problem Family history of malignant neoplasm of gastrointestinal tract (457681240) Family history of colon cancer in mother (Z80.0) Active confirmed Encounters Encounter Location Date Provider Diagnosis [facility] [address] [place] [address] 01/04/2025 Cas Michel Plan Of Treatment Future Test Test Name Order Date COLONOSCOPY 05/05/2024 Insurance Providers Payer Name Payer Address Payer Phone Subscriber Number Group Number Insured Name Patient Relationship to Insured Coverage Start Date Coverage End Date [facility] [address] [place] [phone] [id number] ROBY BARAJAS Self - patient is the insured Medical (General) History Medical History History ICD Code Denies PR,DM,CVA,Lung disease,renal dise ase Charcot Leanna Tooth disease--affects leg s, hands, and balance Depression/PTSD Surgical History Surgery Date(Month/Year)
== END 2025-09-01 11:12 | disposition home or self-care (01) ==
LOC: HO.HCC 10:41
PROVIDERS: PCP Internal Medicine; Visit Provider Internal Medicine
DX: F11.20 Opioid dependence, uncomplicated (principal)
CPT/HCPCS: 99213

== ENCOUNTER 2025-10-03 08:16 | Emergency (ER) | payer OTHER, SELFPAY ==
--- OUTSIDE RECORDS SUMMARY | 2024-08-29 05:30 | XMS_ITS ---
Author Organization [facility] Address [address] [place] [phone] Care Team Providers Care Director Hair Name Role Phone Merly Carrington Primary Care Provider Unavailab Cas Bell [phone] REASON FOR VISIT screening, fam hx colon ca Encounters Encounter Location Date Provider Diagnosis [facility] Outpatient [address] [place] [id number] 08/29/2024 Cas Michel Plan Of Treatment No Information Progress Notes * DIANA BARAJASILDOB: (35 yo F)Acc No.[id number]:08/29/2024 COLON WITH MAC Patient: ROBY PEREZ Provider: Marie Michel MD :1990 A ge:34 Y S ex:Female Date:08/29/2024 Address:[address] [place] [address] , [id number] Pcp:Merly Carrington Subjective: * Chief Complaints: * [...] 08/29/2024 Generated for Tate fajardo/Shayna/eTransmitting on: 1 12/03/2024 08:47 AM EST
--- OUTSIDE RECORDS SUMMARY | 2025-01-06 02:30 | XMS_ITS ---
Author Organization [facility] Address [address] [place] [address] Care Team Providers Care Ehs Manager Name Role Phone Merly Carrington Primary Care Provider Unavailab Cas Bell [phone] REASON FOR VISIT screening,fam hx colon ca Encounters Encounter Location Date Provider Diagnosis [facility] Out[place] [address] [place] [phone] 01/06/2025 Cas Michel Plan Of Treatment No Information Progress Notes * DIANA BARAJASILDOB: (35 yo F)Acc No.[id number]:01/06/2025 COLON WITH MAC Patient: ROBY PEREZ Provider: Marie Michel MD :1990 A ge:34 Y S ex:Female Date:01/06/2025 Address:[address] [place] [address] , [id number] Pcp:Merly Carrington Subjective: * Chief Complaints: * [...] 01/06/2025 Generated for Tate fajardo/Shayna/eTransmitting on: 1 12/03/2024 08:47 AM EST
--- NOTE | ~2025-10-03 | CT_ITS ---
EXAMINATION: CT ABDOMEN PELVIS WITH IV CONTRAST HISTORY: R sided pain, severe diarrhea COMPARISON: Comparison is made with the prior examination dated 05/30/2025. TECHNIQUE: CT scan of the abdomen and pelvis was performed following administration of 85 mL Omnipaque 350 using standard departmental protocol. Coronal and sagittal reformatted images were generated and reviewed. Oral contrast material was not administered at the request of the referring physician. This CT exam was performed with one or more of the following dose reduction techniques: automated exposure control, adjustment of the mA and/or kV according to patient size, use of iterative reconstruction technique. DLP: 821 mGy-cm FINDINGS: LOWER CHEST: The visualized lung bases are clear. There is no pleural effusion. CARDIOVASCULATURE: The heart is normal in size. There is no pericardial effusion. LIVER: The liver is normal in size and contour. No liver mass is identified. The hepatic and portal veins are patent. GALLBLADDER / BILE DUCTS: The gallbladder is unremarkable. There is no intra or extrahepatic biliary ductal dilatation. SPLEEN: The spleen is normal in size. No focal splenic lesion is identified. PANCREAS: The pancreas is unremarkable in appearance. ADRENAL GLANDS: Within normal limits. KIDNEYS/RETROPERITONEUM: No renal calculi are identified. There is no hydronephrosis. Again seen is a probable subcentimeter cyst in the interpolar region of the left kidney. LYMPH NODES: No abdominal or pelvic lymphadenopathy. VASCULATURE: The abdominal aorta is normal in caliber. MESENTERY/PERITONEUM: No free fluid. No masses. There is no free intraperitoneal gas. STOMACH: The stomach is collapsed, limiting evaluation. SMALL BOWEL: The small bowel is normal in caliber. COLON: The colon is collapsed. APPENDIX: Normal. URINARY BLADDER/PELVIC ORGANS: The urinary bladder is collapsed, limiting evaluation. The uterus and ovaries are unremarkable. BONES / SOFT TISSUES: Again seen is sclerosis of the sacroiliac joints, predominantly on the iliac sides of the joints. CT/CT abdomen pelvis w IV con IMPRESSION: No acute abnormality is identified. Electronically signed by: Cas Cesar MD 10/03/2025 10:40 AM [facility]
[2025-10-03 08:20] VITALS: BP 138/85; PULSE 92; RESP 20; TEMP 36.3; O2SAT 98; BMI 44.9
[2025-10-03 08:47] LABS: MANUAL DIFF FLAG NO
--- OUTSIDE RECORDS SUMMARY | 2025-10-03 08:47 | XMS_ITS | Patient Health Record ---
Author Organization [facility] Address [address] [place] [address] Care Team Providers Care Retail Selling Floor Leader Name Role Phone Maomikie Merly Primary Care Provider Cas Ni Unavailable [phone] Allergies No Known Allergies Reason For Referral No Information Medications Medication SIG (Take, Route, Frequency, Duration) Notes Start Date End Date Status busPIRone HCl 10 MG TAKE 1 TABLET BY GEOVANNI TH THREE TIMES DAILY Oral; Duration: 30 Active ARIPiprazole 10 MG TAKE 1 TABLET BY GEOVANNI TH AT BEDTIME Oral; Duration: 30 Active buPROPion HCl ER (XL) 150 MG TAKE 1 TABL ET BY MOUTH DAILY Oral; Duration: 30 Active Gabapentin 800 MG TAKE 1 TABLET BY GEOVANNI TH THREE TIMES DAILY Oral; Duration: 30 Active Cyclobenzaprine HCl 10 MG TAKE 1 TABLET BY MOUTH AT BEDTIME Oral; Duration: 30 Active Dulcolax (colon prep) 5 MG take at 3:00 p.m and 7:00p.m. Orally two tablets twice a day for one day; Duration: 1 day 05/10/2024 Active MiraLax (colon prep) 17 GM/SCOOP 1 238Gm bottle mixed with Gatorade or Crystal Light Orally begin at 5:00 p.m. the day before the procedure; Duration: 1 day 05/10/2024 Active Social History Tobacco [...] Problem Screening for malignant neoplasm of colon (872805120) Encounter for screening for malignant neoplasm of colon (Z12.11) Active confirmed Problem Pre-procedure evaluation check (244601721) Encounter for other preprocedural examination (Z01.818) Active confirmed Problem Family history of malignant neoplasm of gastrointestinal tract (746176195) Family history of colon cancer in mother (Z80.0) Active confirmed Encounters Encounter Location Date Provider Diagnosis [facility] [address] [place] [address] 01/04/2025 Cas Michel Plan Of Treatment Future Test Test Name Order Date COLONOSCOPY 05/05/2024 Insurance Providers Payer Name Payer Address Payer Phone Subscriber Number Group Number Insured Name Patient Relationship to Insured Coverage Start Date Coverage End Date [facility]ICA[facility] [address] [place] [phone] [id number] ROBY BARAJAS Self - patient is the insured Medical (General) History Medical History History ICD Code Denies [place],DM,CVA,Lung disease,renal dise ase Charcot Leanna Tooth disease--affects leg s, hands, and balance Depression/PTSD Surgical History Surgery Date(Month/Year)
--- OUTSIDE RECORDS SUMMARY | 2025-10-03 08:47 | XMS_ITS | Clinical Summary ---
Author Organization [facility] Address [address] [address] Phone Care Team Providers Care Travel Information Center Supervisor Name Role Phone Merly Carrington MD Primary [...] Description 02/14/2026 3:00 PM EDT Office Visit [facility] Neuromuscular Service [address] [place] [address] Darrion Dowling MD 55 [facility] [address] [place] [address] [email or web address] Health Maintenance Due Date Last Done Comments Adult Td,Tdap Booster 1990 DEPRESSION SCREENING 2002 SMOKING Hx and SMOKELESS TOB ACCO SCREENING 2003 HEPATITIS C SCREENING 2008 HIV ONE-TIME SCREENING (18-6 5 YEARS) 2008 PAP SMEAR 2011 INFLUENZA VACCINE (#1) 2025 COVID-19 VACCINE ( - 2024-2 6 season) 2025 HEPATITIS A VACCINES Aged Out [...] topic Medical Devices Not on file Insurance [facility] [employer] [id number] [facility] PL[facility] Care Teams Travel Information Center Supervisor Relationship Specialty Start Date End Date Merly Carrington MD [address] [place] [address] [place] [address] PCP - General Internal Medicine 07/24/25 Additional Source Comments The information contained in this document represents components of the legal health record. It is not the complete legal health record.[facility]
--- OUTSIDE RECORDS SUMMARY | 2025-10-03 08:47 | XMS_ITS | Clinical Summary ---
Author Organization [facility] ity Address [address] [place] [address] Care Team Providers Care Type Cutter Name Role Phone Unavailable Primary Care Provider [...] Cervical Cancer Screening: P ap Smear 2011 HPV Vaccines (1 - 3-dose SCD M series) 2017 Depression Screening 11/30/2024 COVID-19 Vaccine (1 - [...]
[2025-10-03 08:49] LABS: Hematocrit 38.7 % (37.0-47.0); Hemoglobin 13.0 g/dl (12.0-16.0); Imm Gran Abs Auto 0.02 X10*3/uL (0.00-0.03); Imm Gran Pct Auto 0.2 % (0.0-0.4); Lymphocytes Absolute Auto 2.6 X10*3/uL (1.2-4.9); Mean Corpuscular HGB Conc 33.6 g/dl (31.0-35.0); Mean Corpuscular Hemoglobin 28.0 pg (27.0-33.0); Mean Corpuscular Volume 83.2 fL (80.0-98.0); NRBC Abs Auto 0.000 X10*3/uL (0.0-0.012); NRBC Pct Auto 0.0 /100WBC (0.0-0.2); Platelet Count 361 X10*3/uL (160-400); Red Blood Count 4.65 X10*6/uL (4.20-5.50); White Blood Count 8.9 X10*3/uL (4.8-10.8)
--- NOTE | 2025-10-03 08:51 | ED.ABDPAIN ---
HPI - Abdominal Pain General Chief Complaint: Abdominal Pain Stated Complaint: abd pain, severe d/v. Time Seen by Provider: 10/03/25 08:47 Source: patient and old records reviewed Mode of arrival: ambulatory Limitations: no limitations History of Present Illness ED Provider: TRISHA SYED narrative: 35 yo female with PMH of depression, charcot leanna tooth muscular atrophy, recurrent falls and hx of ankle fractures, PTSD, prior benzo and alcohol abuse, was started on suboxone for pain control in July 2025 but did not like how it made her feel so she has not been taking it. She comes in with complaint of 2 weeks of intermittent diffuse abdominal pain and yellow orange stools. She ignored it thinking it was viral but has not gotten better and in fact her pain has worsened now localizes to the right side both right upper quadrant and right lower quadrant. She started with nausea vomiting 2 days ago and has not been able to eat or drink since. Preceding this she denies any sick contacts, food exposures, antibiotic use in the last month. She has no history IBD in the family and no history of herself having colitis. She has not noted any bloody stools. She had some cold sweats last night MD elicited complaint: abdominal pain Pertinent past history: none Onset (ago): week(s) (To) Pain Consistency: intermittent Location: diffuse Severity: severe Quality: cramping Radiation: RUQ and RLQ Migration to: no migration Exacerbating factors: eating and movement Relieving factors: nothing Context: other Associated symptoms: nausea, vomiting, diarrhea and chills Related Data Home Medications ?Medication ?Instructions ?Recorded ?Confirmed buspirone 10 mg tablet 10 mg PO TID PRN anxiety 07/25/24 12/20/24 cyclobenzaprine 10 mg tablet 10 mg PO BEDTIME PRN muscle spasms 07/25/24 12/20/24 Previous Rx's ?Medication ?Instructions ?Recorded aripiprazole 10 mg tablet (Abilify) 10 mg PO BEDTIME #30 tabs 01/29/23 bupropion HCl 150 mg 24 hr tablet, 150 mg PO QAM #30 tabs 01/29/23 extended release gabapentin 800 mg tablet 800 mg PO TID #90 tabs 01/29/23 leg brace #1 ea 12/20/24 buprenorphine 2 mg-naloxone 0.5 mg 1 film buccal DAILY #14 ea 08/15/25 sublingual film (Suboxone) cyclobenzaprine 10 mg tablet 10 mg PO BID PRN muscle spasm #30 08/15/25 tabs diazepam 5 mg tablet (Valium) 2.5 mg (1/2 x 5 mg) PO TID PRN 10/03/25 muscle spasm #8 tabs dicyclomine 10 mg capsule 10 mg PO BID PRN abdominal pain 10/03/25 #30 caps Allergies Allergy/AdvReac Type Severity Reaction Status Date / Time apple Allergy Throat Verified 10/03/25 08:22 itches Review of Systems Review of Systems Constitutional : No Weight loss, No Fever, pos Chills ENT/Mouth : No sore throat, No Rhinorrhea Eyes: No Swelling, No Redness Cardiovascular : No Chest Pain, No SOB, NoEdema Respiratory : No Cough, No Sputum, No Wheezing Gastrointestinal : Positive Nausea, Positive Vomiting, positive Diarrhea, positive abdominal Pain, No Hematochezia, No Melena Genitourinary : No Dysuria, No Urinary Frequency, No Hematuria, No Urgency Musculoskeletal : No joint pain, No Myalgias, No Joint Swelling Skin : No Skin Lesions, No rash Neuro : No Weakness, No Numbness, No Dizziness, No Headache Psych : No Anxiety/Panic, No Depression All other systems reviewed and are negative. [facility] Past Medical History Attestation statement: The following information was validated with the patient. Source: old records reviewed Medical History PTSD (post-traumatic stress disorder) Anxiety Depression Charcot Leanna Tooth muscular atrophy Family History Family History Mother Colon cancer Social History Social History Household Members: Children Household Members Other:: Pt's son,sister and brother in law Housing: Apartment Alcohol intake: never Patient Tobacco Use Status: Former Tobacco user Tobacco use type: Cigarette Smoked in Last 30 Days: No Second Hand Smoke Exposure: No Use of substances other than those prescribed or required for medical reasons: No Substance Use Type: Marijuana Advance Directives: No Advance Directives Information Provided: No Do you have a plan to hurt others: No Plan Patient : No service: No Sexual orientation: Straight/Heterosexual Physical Exam ED Vital Signs: Vital Signs - 24 hr 10/03/25 08:20 10/03/25 10:06 10/03/25 10:08 Temperature 97.4 F Pulse Rate 92 76 Respiratory Rate 20 18 20 Blood Pressure 138/85 101/66 Pulse Oximetry 98 99 Oxygen Delivery Method Room Air Room Air 10/03/25 12:17 Temperature 98.2 F Pulse Rate 78 Respiratory Rate 19 Blood Pressure 125/73 Pulse Oximetry 99 Oxygen Delivery Method Room Air BMI result Body Mass Index 44.9 Appearance: Alert. Oriented X3. No acute distress. Eyes: Pupils equal, round and reactive to light. ENT: Pharynx dry mucous membranes Neck: Normal inspection. Neck supple. CVS: Normal heart rate and rhythm. Pulses normal. Respiratory: No respiratory distress. Breath sounds normal. Abdomen: Her abdomen is soft but she has diffuse tenderness to palpation, she has no rebound, no involuntary guarding Skin: Skin warm and dry. Normal skin color. Extremities: No lower extremity edema. Neuro: Oriented X 3. No motor deficit. No sensory deficit. Medical Decision Making Medical Decision Making [facility] Narrative: 35 yo female with PMH of depression, charcot leanna tooth muscular atrophy, recurrent falls and hx of ankle fractures, PTSD, prior benzo and alcohol abuse, was started on suboxone for pain control in July 2025 but is no longer taking. She now presents with 2 weeks of worsening abdominal pain, now with nausea vomiting, now with chills, and persistent yellow orange diarrhea without any triggering events. She will need IV fluids, IV morphine for pain, I am obtaining stool studies, and CT scan for possible inflammatory or infectious cause of her symptoms Differential Diagnosis Differential Diagnoses: The differential diagnosis associated with the presentation includes Possible viral syndrome, possible colitis, possible dehydration, possible infectious diarrhea Admission/Observation Consideration of admission/observation: Escalation of care including admission/observation considered wiith 2 weeks of symptoms her labs are reassuring, her CT scan is normal, she is tolerating p.o. At this time are going to send home with the brat diet as well as Imodium and return precautions Lab Data [facility] Lab Attestation statement: I reviewed the patient's lab results. 10/03/25 08:42 10/03/25 08:42 Labs: Lab Results 10/03/25 10/03/25 Range/Units 08:42 08:50 WBC 8.9 (4.8-10.8) X10*3/uL RBC 4.65 (4.20-5.50) X10*6/uL Hgb 13.0 (12.0-16.0) g/dl Hct 38.7 (37.0-47.0) % MCV 83.2 (80.0-98.0) fL MCH 28.0 (27.0-33.0) pg MCHC 33.6 (31.0-35.0) g/dl RDW 13.5 (11.0-16.0) % Plt Count 361 (160-400) X10*3/uL MPV 9.1 L (9.4-12.3) fL Immature Gran % (Auto) 0.2 (0.0-0.4) % Neut % (Auto) 61.1 (45-73) % Lymph % (Auto) 29.1 (20-40) % [place] % (Auto) 8.0 (2-11) % Eos % (Auto) 1.0 (0-4) % Baso % (Auto) 0.6 (0-2) % Lymph # (Auto) 2.6 (1.2-4.9) X10*3/uL [place] # (Auto) 0.7 (0.1-1.2) X10*3/uL Eos # (Auto) 0.1 (0.0-0.4) X10*3/uL Baso # (Auto) 0.1 (0.0-0.2) X10*3/uL Abs Immat Gran (auto) 0.02 (0.00-0.03) X10*3/uL Absolute Neuts (auto) 5.5 (2.0-8.3) x10*3/uL Absolute Nucleated RBC 0.000 (0.0-0.012) X10*3/uL Nucleated RBC % (auto) 0.0 (0.0-0.2) /100WBC Sodium 137 (135-145) mmol/L Potassium 3.9 (3.3-5.1) mmol/L Chloride 110 H (96-108) mmol/L Carbon Dioxide 23 (22-29) mmol/L Anion Gap 8 L (12-20) BUN 8 L (9-16) mg/dL Creatinine 0.64 (0.5-1.4) mg/dL Estim Creat Clear Calc 139.1 Estimated GFR > 60 Random Glucose 110 (60-115) mg/dL Calcium 8.8 (8.4-10.2) mg/dL Total Bilirubin 0.9 (0.0-1.0) mg/dL Direct Bilirubin 0.3 (0.0-0.5) mg/dL AST 17 (5-31) U/L ALT 18 (0-31) U/L Alkaline Phosphatase 102 (39-117) U/L Total Protein 7.2 (6.5-8.0) g/dL Albumin 4.1 (3.5-5.0) g/dL Lipase 16 (8-78) U/L Urine Color Yellow Urine Appearance Clear Urine pH 6.0 (5.0-9.0) Ur Specific [place] 1.020 (1.005-1.025) Urine Protein Negative (Neg-Trace) mg/dL Urine Glucose (UA) Negative (Negative) mg/dL Urine Ketones Negative (Negative) mg/dL Urine Blood Negative (Negative) Urine Nitrite Negative (Negative) Ur Leukocyte Esterase Negative (Negative) Urine Test NEGATIVE (NEGATIVE) Urine Opiates Screen Not Detected (Not Detect) Ur Buprenorphine Scrn Not Detected (Not Detect) ng/mL Ur Oxycodone Screen Not Detected (Not Detect) ng/mL Urine Methadone Screen Not Detected (Not Detect) ng/mL Urine Fentanyl Screen Not Detected (Not Detect) Ur Barbiturates Screen Not Detected (Not Detect) Ur Phencyclidine Scrn Not Detected (Not Detect) Ur Amphetamines Screen Not Detected (Not Detect) U Benzodiazepines Scrn Not Detected (Not Detect) Urine Cocaine Screen Not Detected (Not Detect) U Marijuana (THC) Screen POSITIVE H (Not Detect) Independent Interpretation I performed an independent interpretation of an: CT Scan (No colitis or inflammation) Radiology Impression Discussion of test interpretation with radiology: I have reviewed the radiologist's reading. External Record Review External record reviewed: Outpatient record Medications Administered Discontinued Medications Generic Name Dose Route Start Last Admin Trade Name Freq PRN Reason Stop Dose Admin Dicyclomine HCl 10 mg 10/03/25 12:05 10/03/25 12:16 Dicyclomine Hcl 10 Mg Capsule PO 10/03/25 12:06 10 mg ONCE ONE Administration Lactated Ringer's 1,000 mls @ 999 mls/hr 10/03/25 09:25 10/03/25 10:15 Lr IV 10/03/25 10:25 999 mls/hr .Q1H1M ONE Administration Iohexol 100 ml 10/03/25 10:25 10/03/25 10:27 Iohexol 350 Mg/Ml 100 Ml Infus..Btl IV 10/03/25 10:26 85 ml ONCE ONE Administration Lorazepam 1 mg 10/03/25 12:05 10/03/25 12:16 Lorazepam 1 Mg Tablet PO 10/03/25 12:06 1 mg ONCE ONE Administration Morphine Sulfate 4 mg 10/03/25 09:25 10/03/25 10:08 Morphine Sulfate 4 Mg/Ml Cartridge IVPUSH 10/03/25 09:26 4 mg ONCE ONE Administration Protocol Prochlorperazine Edisylate 10 mg 10/03/25 09:25 10/03/25 10:08 Prochlorperazine Edisylate 10 Mg/2 Ml Vial IVPUSH 10/03/25 09:26 10 mg ONCE ONE Administration Discharge Plan Discharge Clinical Impression: Acute diarrhea Patient Disposition: Home, Self-Care Instructions: Acute Diarrhea (ED), Acute Abdominal Pain (ED) Additional Instructions: At this time your urine showed no infection, your labs were normal and reassuring, your CT scan showed no evidence of inflammation or active infection At this time please start on a very bland diet including, bananas, rice, toast, plenty of fluids. You can incorporate yogurt as well as it has probiotics Please monitor your symptoms and return if you have a fever over 101, worsening pain, blood in your stools, or any other concerns You can take as needed Imodium [id number] according to package instructions to assist with your diarrhea You can bring your stool to the lab bring supplies at the home you were given a slip on discharge Prescriptions: New dicyclomine 10 mg capsule 10 mg PO BID PRN (Reason: abdominal pain) Qty: 30 0RF diazepam [Valium] 5 mg tablet 2.5 mg PO TID PRN (Reason: muscle spasm) Qty: 8 0RF Rx Instructions: partial fill is okay No Action aripiprazole [Abilify] 10 mg tablet 10 mg PO BEDTIME Qty: 30 0RF Patient Comments: Patient stated she takes in the morning. bupropion HCl 150 mg tablet extended release 24 hr 150 mg PO QAM Qty: 30 0RF gabapentin 800 mg tablet 800 mg PO TID Qty: 90 0RF buprenorphine-naloxone [Suboxone] 2-0.5 mg film 1 film buccal DAILY Qty: 14 0RF cyclobenzaprine 10 mg tablet 10 mg PO BID PRN (Reason: muscle spasm) Qty: 30 0RF cyclobenzaprine 10 mg tablet 10 mg PO BEDTIME PRN (Reason: muscle spasms) buspirone 10 mg tablet 10 mg PO TID PRN (Reason: anxiety) (DME) leg brace Misc See Rx Instructions .Route Qty: 1 0RF Rx Instructions: As directed Print Language: Tongan
[2025-10-03 09:00] LABS: Appearance Urine Clear; Glucose Urine UA Negative (Negative); PH 6.0 (5.0-9.0); Specific Gravity - Urine 1.020 (1.005-1.025)
[2025-10-03 09:03] LABS: UPreg QC Valid YES
[2025-10-03 09:06] LABS: Alanine Aminotransferase 18 U/L (0-31); Albumin Level 4.1 g/dL (3.5-5.0); Alkaline Phosphatase 102 U/L (39-117); Anion Gap 8 (12-20); Aspartate Amino Transferase 17 U/L (5-31); Blood Urea Nitrogen 8 mg/dL (9-16); Calcium 8.8 mg/dL (8.4-10.2); Carbon Dioxide 23 mmol/L (22-29); Chloride 110 mmol/L (96-108); Creatinine Clr Calc Pharmacy 139.1; Estimated Glomerular Filt Rate > 60; Lipase 16 U/L (8-78); Potassium 3.9 mmol/L (3.3-5.1); Sodium 137 mmol/L (135-145); Total Protein 7.2 g/dL (6.5-8.0)
[2025-10-03 10:03] LABS: Cannabinoid Screen Urine POSITIVE (Not Detect)
[2025-10-03 10:06] VITALS: BP 101/66; PULSE 76; RESP 18; O2SAT 99
[2025-10-03 10:08] VITALS: RESP 20
[2025-10-03] MEDS: Lactated Ringers 1,000 ML 999 ML IV (10:15)
[2025-10-03] MEDS: iohexoL 350 MG/ML 100 ML INFUS..BTL IV (10:27)
[2025-10-03 12:17] VITALS: BP 125/73; PULSE 78; RESP 19; TEMP 36.8; O2SAT 99
[2025-10-03 13:11] VITALS: BP 125/73; PULSE 78; RESP 19; TEMP 36.8; O2SAT 99
== END 2025-10-03 13:13 | disposition home or self-care (01) ==
PROVIDERS: Emergency Provider Emergency Medicine; PCP Internal Medicine
DX: R19.7 Diarrhea, unspecified (principal); G60.0 Hereditary motor and sensory neuropathy; Z91.81 History of falling; Z87.828 Personal history of other (healed) physical injury and trauma; Z79.899 Other long term (current) drug therapy
CPT/HCPCS: 36415; 74177; 80048; 80076; 80307; 81003; 81025; 83690; 85025; 96361; 96374; 96375; 99284; 99285; J0737; J2270; J7120; Q9967

== ENCOUNTER → 2025-10-03 09:25 | Outpatient (BNV) | payer OTHER, SELFPAY | PROVIDERS: Emergency Provider Emergency Medicine; PCP Internal Medicine; Visit Provider Radiology Diagnostic Radiology | DX: R10.84 Generalized abdominal pain (principal); R19.7 Diarrhea, unspecified | CPT/HCPCS: 74177 ==

== ENCOUNTER 2025-10-04 09:08 | Emergency (ER) | payer OTHER, SELFPAY ==
--- OUTSIDE RECORDS SUMMARY | 2024-08-29 05:30 | XMS_ITS ---
Author Organization [facility] Address [address] [place] [phone] Care Team Providers Care Bottle Gauger Name Role Phone Merly Carrington Primary Care Provider Unavailab Cas Bell [phone] REASON FOR VISIT screening, fam hx colon ca Encounters Encounter Location Date Provider Diagnosis [facility] Out[facility] [address] [place] [id number] 08/29/2024 Cas Michel Plan Of Treatment No Information Progress Notes * DIANA BARAJASILDOB: (35 yo F)Acc No.[id number]:08/29/2024 COLON WITH MAC Patient: ROBY PEREZ Provider: Marie Michel MD :1990 A ge:34 Y S ex:Female Date:08/29/2024 Address:[address] [place] [address] , [id number] Pcp:Merly Carrington Subjective: * Chief Complaints: * 1 . Screening, fam hx colon ca. * Medical History: Objective: * Vitals: Assessment: Plan: * Treatment: * * The named appointment provid er may or may not be the originator of this progress note, and it is not deemed complete until electronically signed by the appointment provider. Sign off status: Pending * Provider: Marie Michel MD Date: 0 08/29/2024 Generated for Tate fajardo/Shayna/eTransmitting on: 1 12/04/2024 10:26 AM EST
--- OUTSIDE RECORDS SUMMARY | 2025-01-06 02:30 | XMS_ITS ---
Author Organization [facility] Address [address] [place] [address] Care Team Providers Care Globe Tester Name Role Phone Merly Carrington Primary Care Provider Unavailab Cas Bell [phone] REASON FOR VISIT screening,fam hx colon ca Encounters Encounter Location Date Provider Diagnosis [facility] Outpatient [address] [place] [id number] 01/06/2025 Cas Michel Plan Of Treatment No Information Progress Notes * DIANA BARAJASILDOB: (35 yo F)Acc No.[id number]:01/06/2025 COLON WITH MAC Patient: ROBY PEREZ Provider: Marie Michel MD :1990 A ge:34 Y S ex:Female Date:01/06/2025 Address:[address] [place] [address] , [id number] Pcp:Merly Carrington Subjective: * Chief Complaints: * 1 . Screening,fam hx colon ca. * Medical History: Objective: * Vitals: Assessment: Plan: * Treatment: * * The named appointment provid er may or may not be the originator of this progress note, and it is not deemed complete until electronically signed by the appointment provider. Sign off status: Pending * Provider: Marie Michel MD Date: 0 01/06/2025 Generated for Tate fajardo/Shayna/eTransmitting on: 1 12/04/2024 10:25 AM EST
--- NOTE | ~2025-10-04 | XR_ITS ---
EXAMINATION: XR ABDOMEN KUB CLINICAL INDICATION: abdominal pain COMPARISON: X-ray 10/04/2024 TECHNIQUE: 2 AP supine views of the abdomen. FINDINGS: Nonobstructive bowel gas pattern. No gross pneumoperitoneum seen on the supine views.. No suspicious soft tissue calcifications. Lung bases are clear. No acute osseous finding seen. XR/XR KUB IMPRESSION: Nonobstructive bowel gas pattern. Electronically signed by: Darryl Mason MD 10/04/2025 12:29 PM EST
[2025-10-04 09:19] VITALS: BP 152/91; PULSE 112; RESP 18; TEMP 36.6; O2SAT 98; BMI 44.2
--- NOTE | 2025-10-04 09:36 | ED.ABDPAIN ---
HPI - Abdominal Pain General Chief Complaint: Abdominal Pain Stated Complaint: stomach pain, diarrhea, vomiting w/ blood. Time Seen by Provider: 10/04/25 09:25 Source: patient Mode of arrival: ambulatory Limitations: no limitations History of Present Illness ED Provider: HPI narrative: 35-year-old woman presenting with nausea vomiting diarrhea, was seen in the emergency department yesterday, she states that she had hematemesis this time as well, sputum mixed with blood, no hematochezia, states has been using diazepam and Bentyl but is not better. Related Data Home Medications ?Medication ?Instructions ?Recorded ?Confirmed buspirone 10 mg tablet 10 mg PO TID PRN anxiety 07/25/24 10/04/25 bupropion HCl 150 mg 24 hr tablet, 150 mg PO DAILY 10/04/25 10/04/25 extended release diazepam 5 mg tablet (Valium) 5 mg PO TID PRN muscle spasm 10/04/25 10/04/25 hydroxyzine HCl 50 mg tablet 25 - 50 mg PO TID PRN anxiety 10/04/25 10/04/25 pregabalin 75 mg capsule 75 mg PO BID 10/04/25 10/04/25 Previous Rx's ?Medication ?Instructions ?Recorded aripiprazole 10 mg tablet (Abilify) 10 mg PO BEDTIME #30 tabs 01/29/23 leg brace #1 ea 12/20/24 dicyclomine 10 mg capsule 10 mg PO BID PRN abdominal pain 10/03/25 #30 caps ondansetron 4 mg disintegrating 4 mg PO Q8H PRN nausea and 10/04/25 tablet vomiting #4 tabs sucralfate 1 gram tablet (Carafate) 1 g PO Q6H 7 days #28 tabs 10/04/25 Allergies Allergy/AdvReac Type Severity Reaction Status Date / Time apple Allergy Throat Verified 10/04/25 09:21 itches Review of Systems Constitutional: Reports as per HPI [facility] Past Medical History Medical History PTSD (post-traumatic stress disorder) Anxiety Depression Charcot Leanna Tooth muscular atrophy Family History Family History Mother Colon cancer Social History Social History Household Members: Children Household Members Other:: Pt's son,sister and brother in law Housing: Apartment Alcohol intake: never Patient Tobacco Use Status: Former Tobacco user Tobacco use type: Cigarette Smoked in Last 30 Days: No Second Hand Smoke Exposure: No Use of substances other than those prescribed or required for medical reasons: Yes Substance Use Type: Marijuana Substance Use Frequency: Daily Advance Directives: No Advance Directives Information Provided: No Do you have a plan to hurt others: No Plan Patient : No service: No Sexual orientation: Straight/Heterosexual Physical Exam ED Exam Exam: General: ?Appears of stated age ? ? no scleral icterus ? Neck: Supple, no LAD ? ?CV: RRR, no obvious murmurs appreciated ? ?Resp: ?No wheezing rales rhonchi no stridor moving air well ? Abd: ?Bowel sounds are present, epigastric tenderness no tenderness in the lower quadrants or right upper quadrant ? ?MSK: FROM, strength 5/5 all extremities ? Skin: Warm, dry, intact, no jaundice ? ?Neuro: ?Alert and oriented x3, moving upper and lower extremities symmetrically, no obvious facial asymmetry noted, cranial nerves 2-12 intact Vital Signs: Vital Signs - 24 hr 10/04/25 09:19 10/04/25 11:44 Temperature 98 F Pulse Rate 112 H 83 Respiratory Rate 18 18 Blood Pressure 152/91 H 111/71 Pulse Oximetry 98 98 Oxygen Delivery Method Room Air Room Air BMI result Body Mass Index 44.2 Medical Decision Making Medical Decision Making MDM Narrative: 9:45 AM 10/04/2025 (Dr. Rory Crouch): Patient on Suboxone with a remote history of benzodiazepine use disorder, was seen in the emergency department yesterday had negative CT, discharge with Bentyl and diazepam, presenting this time same symptoms plus hematemesis which I have discussed with the patient is not uncommon in young people during vomitus, with a otherwise benign abdominal exam for except for epigastric tenderness, we will check H&H, did not report any melena, we will obtain KUB to evaluate for any obstructive patterns or free air I have low suspicion for Boerhaave syndrome, we will provide fluids, antiemetics, p.o. meds, we will aim to avoid any narcotics or benzos, in the past patient has had frequent ER visits, but in general this year she has been in the ER 8 times for various issues including abdominal pain and negative imaging in the past x 2 CTs this year of the abdomen and pelvis 11:51 AM 10/04/2025 (Dr. Rory Crouch): Re-evaluated, feels better Differential Diagnosis Differential Diagnoses: The differential diagnosis associated with the presentation includes (Cholecystitis, pancreatitis, hepatitis, gastritis, cholangitis, choledocholithiasis, SBO, dehydration, IBS, Boerhaave syndrome) Admission/Observation Consideration of admission/observation: Escalation of care including admission/observation considered Lab Data MDM Lab Attestation statement: I reviewed the patient's lab results. 10/04/25 10:04 10/04/25 10:04 Labs: Lab Results 10/04/25 Range/Units 10:04 WBC 7.9 (4.8-10.8) X10*3/uL RBC 4.44 (4.20-5.50) X10*6/uL Hgb 12.4 (12.0-16.0) g/dl Hct 36.9 L (37.0-47.0) % MCV 83.1 (80.0-98.0) fL MCH 27.9 (27.0-33.0) pg MCHC 33.6 (31.0-35.0) g/dl RDW 13.1 (11.0-16.0) % Plt Count TNP MPV TNP Immature Gran % (Auto) 0.4 (0.0-0.4) % Neut % (Auto) 55.4 (45-73) % Lymph % (Auto) 32.1 (20-40) % [place] % (Auto) 9.9 (2-11) % Eos % (Auto) 1.7 (0-4) % Baso % (Auto) 0.5 (0-2) % Lymph # (Auto) 2.5 (1.2-4.9) X10*3/uL [place] # (Auto) 0.8 (0.1-1.2) X10*3/uL Eos # (Auto) 0.1 (0.0-0.4) X10*3/uL Baso # (Auto) 0.0 (0.0-0.2) X10*3/uL Abs Immat Gran (auto) 0.03 (0.00-0.03) X10*3/uL Absolute Neuts (auto) 4.4 (2.0-8.3) x10*3/uL Absolute Nucleated RBC 0.020 H (0.0-0.012) X10*3/uL Nucleated RBC % (auto) 0.3 H (0.0-0.2) /100WBC Smear Tech's Comments VERIFIED Sodium 137 (135-145) mmol/L Potassium 3.9 (3.3-5.1) mmol/L Chloride 109 H (96-108) mmol/L Carbon Dioxide 21 L (22-29) mmol/L Anion Gap 11 L (12-20) BUN 7 L (9-16) mg/dL Creatinine 0.66 (0.5-1.4) mg/dL Estim Creat Clear Calc 133.5 Estimated GFR > 60 Random Glucose 96 (60-115) mg/dL Calcium 8.7 (8.4-10.2) mg/dL Magnesium 2.1 (1.6-2.6) mg/dL Total Bilirubin 1.0 (0.0-1.0) mg/dL AST 20 (5-31) U/L ALT 17 (0-31) U/L Alkaline Phosphatase 95 (39-117) U/L Total Protein 7.1 (6.5-8.0) g/dL Albumin 3.8 (3.5-5.0) g/dL Independent Interpretation I performed an independent interpretation of an: Plain X-Ray (No free air no obstructive patterns) Radiology Impression Discussion of test interpretation with radiology: I have reviewed the radiologist's reading. External Record Review External record reviewed: Outpatient record Tests considered The following testing was considered but not selected: CT abdomen and pelvis with IV contrast Chronic Conditions Patient?s care impacted by: Other (History of opiate dependence) Medications Administered Discontinued Medications Generic Name Dose Route Start Last Admin Trade Name Freq PRN Reason Stop Dose Admin Al Hydroxide/Mg Hydroxide 15 ml 10/04/25 09:39 10/04/25 10:56 Magnesium Hydrox/Alum Hydrox 30 Ml Oral.Susp PO 10/04/25 09:40 15 ml ONCE ONE Administration Belladonna Alkaloids/Phenobarbital 10 ml 10/04/25 09:39 10/04/25 10:57 Phenobarb/Hyoscy/Atropine/Scop 10 Ml Elixir PO 10/04/25 09:40 10 ml ONCE ONE Administration Famotidine 20 mg 10/04/25 09:50 10/04/25 10:19 Famotidine/Pf 20 Mg/2 Ml Vial IVPUSH 10/04/25 09:51 20 mg ONCE ONE Administration Sodium Chloride 1,000 mls @ 999 mls/hr 10/04/25 09:45 10/04/25 10:22 Ns IV 10/04/25 10:45 999 mls/hr .Q1H1M PATSY Administration Lidocaine HCl 15 ml 10/04/25 09:39 10/04/25 10:57 Lidocaine Hcl Viscous 2 % 15 Ml Solution PO 10/04/25 09:40 15 ml ONCE ONE Administration Loperamide HCl 2 mg 10/04/25 09:42 10/04/25 10:19 Loperamide Hcl 2 Mg Capsule PO 10/04/25 09:43 2 mg ONCE ONE Administration Ondansetron HCl 4 mg 10/04/25 09:39 10/04/25 10:19 Ondansetron Hcl 4 Mg/2 Ml Vial IVPUSH 10/04/25 09:40 4 mg ONCE ONE Administration Discharge Plan Discharge Clinical Impression: Hematemesis, Abdominal pain, epigastric, Nausea & vomiting Instructions: Abdominal Pain (ED), Hematemesis (ED) Additional Instructions: Carafate 1 pill 20 minutes before meals for the next 1 week, Zofran as needed for nausea and vomiting Your blood work is reassuring, as discussed it is not uncommon for falx to have blood in vomit but you do not have any evidence for blood loss Samantha's had unremarkable x-ray follow up with the PCP, any other issues concerns come back to the ED Prescriptions: New sucralfate [Carafate] 1 gram tablet 1 g PO Q6H 7 Days Qty: 28 0RF ondansetron 4 mg tablet,disintegrating 4 mg PO Q8H PRN (Reason: nausea and vomiting) Qty: 4 0RF No Action aripiprazole [Abilify] 10 mg tablet 10 mg PO BEDTIME Qty: 30 0RF Patient Comments: Patient stated she takes in the morning. dicyclomine 10 mg capsule 10 mg PO BID PRN (Reason: abdominal pain) Qty: 30 0RF buspirone 10 mg tablet 10 mg PO TID PRN (Reason: anxiety) hydroxyzine HCl 50 mg tablet 25 - 50 mg PO TID PRN (Reason: anxiety) pregabalin 75 mg capsule 75 mg PO BID bupropion HCl 150 mg tablet extended release 24 hr 150 mg PO DAILY diazepam [Valium] 5 mg tablet 5 mg PO TID PRN (Reason: muscle spasm) Rx Instructions: partial fill is okay (DME) leg brace Misc See Rx Instructions .Route Qty: 1 0RF Rx Instructions: As directed Print Language: Italian
--- NOTE | 2025-10-04 10:15 | PHA.MEDREC ---
Addendum entered by Aditya Leonard PharmD 10/04/25 10:19: reviewed Original Note: Pharmacy Consult ? Medication Reconciliation Pharmacy has completed the medication reconciliation. Spoke with pt and she confirmed her medications. Pt confirmed she started the Diazepam 5mg tab and Dicyclomine 10mg tabs yesterday; pt suppose to take Diazepam 1/2 tab TID PRN and pt states she does not cut them in half and takes 1 tab TID PRN muscle spasms. Pt stopped the Suboxone officially in the last few weeks.
[2025-10-04 10:21] LABS: Hematocrit 36.9 % (37.0-47.0); Hemoglobin 12.4 g/dl (12.0-16.0); Imm Gran Abs Auto 0.03 X10*3/uL (0.00-0.03); Imm Gran Pct Auto 0.4 % (0.0-0.4); Lymphocytes Absolute Auto 2.5 X10*3/uL (1.2-4.9); MANUAL DIFF FLAG SCAN; Mean Corpuscular HGB Conc 33.6 g/dl (31.0-35.0); Mean Corpuscular Hemoglobin 27.9 pg (27.0-33.0); Mean Corpuscular Volume 83.1 fL (80.0-98.0); NRBC Abs Auto 0.020 X10*3/uL (0.0-0.012); NRBC Pct Auto 0.3 /100WBC (0.0-0.2); PLT CLUMP 1; Red Blood Count 4.44 X10*6/uL (4.20-5.50); SCAN SMEAR FLAG 1
--- OUTSIDE RECORDS SUMMARY | 2025-10-04 10:25 | XMS_ITS | Clinical Summary ---
Author Organization [facility] Address [address] [address] Phone Care Team Providers Care Contractor Broomcorn Threshing Name Role Phone Merly Carrington MD Primary [...] Description 02/14/2026 3:00 PM EDT Office Visit [facility] Neuromuscular Service [address] [place] [address] Darroin Dowling MD 55 [facility] [address] [place] [address] [email or web address] Health Maintenance Due Date Last Done Comments [...] topic Medical Devices Not on file Insurance [facility] [place] [id number] [facility] Care Teams Contractor Broomcorn Threshing Relationship Specialty Start Date End Date Merly Carrington MD [address] [place] [address] [place] [phone] PCP - General Internal Medicine 07/24/25 Additional Source Comments The information contained in this document represents components of the legal health record. It is not the complete legal health record.[facility]
--- OUTSIDE RECORDS SUMMARY | 2025-10-04 10:25 | XMS_ITS | Patient Health Record ---
Author Organization [facility] Address [address] [place] [address] Care Team Providers Care Mysql Database Administrator Name Role Phone Maomikie Merly Primary Care Provider Cas Ni Unavailable [phone] Allergies No Known Allergies Reason For Referral [...] Problem Screening for malignant neoplasm of colon (500525328) Encounter for screening for malignant neoplasm of colon (Z12.11) Active confirmed Problem Pre-procedure evaluation check (469119390) Encounter for other preprocedural examination (Z01.818) Active confirmed Problem Family history of malignant neoplasm of gastrointestinal tract (492863564) Family history of colon cancer in mother (Z80.0) Active confirmed Encounters Encounter Location Date Provider Diagnosis [facility] [address] [place] [address] 01/04/2025 Cas Michel Plan Of Treatment Future Test Test Name Order Date COLONOSCOPY 05/05/2024 Insurance Providers Payer Name Payer Address Payer Phone Subscriber Number Group Number Insured Name Patient Relationship to Insured Coverage Start Date Coverage End Date [facility] [address] [place] [phone] [id number] ROBY BARAJAS Self - patient is the insured Medical (General) History Medical History History ICD Code Denies [place],DM,CVA,Lung disease,renal dise ase Charcot Leanna Tooth disease--affects leg s, hands, and balance Depression/PTSD Surgical History Surgery Date(Month/Year)
--- OUTSIDE RECORDS SUMMARY | 2025-10-04 10:26 | XMS_ITS | Clinical Summary ---
Author Organization [facility] ity Address [address] [place] [address] Care Team Providers Care Retail Manager Name Role Phone Unavailable Primary Care Provider [...]
[2025-10-04 10:30] LABS: Alanine Aminotransferase 17 U/L (0-31); Albumin Level 3.8 g/dL (3.5-5.0); Alkaline Phosphatase 95 U/L (39-117); Anion Gap 11 (12-20); Aspartate Amino Transferase 20 U/L (5-31); Blood Urea Nitrogen 7 mg/dL (9-16); Calcium 8.7 mg/dL (8.4-10.2); Carbon Dioxide 21 mmol/L (22-29); Chloride 109 mmol/L (96-108); Creatinine Clr Calc Pharmacy 133.5; Estimated Glomerular Filt Rate > 60; Magnesium 2.1 mg/dL (1.6-2.6); Potassium 3.9 mmol/L (3.3-5.1); Sodium 137 mmol/L (135-145); Total Protein 7.1 g/dL (6.5-8.0)
[2025-10-04 10:39] LABS: White Blood Count 7.9 X10*3/uL (4.8-10.8)
[2025-10-04] MEDS: Magnesium Hydrox/Alum Hydrox 30 ML ORAL.SUSP 15 ML PO (10:56)
[2025-10-04] MEDS: PHENobarb/Hyoscy/Atropine/Scop 10 ML ELIXIR PO (10:57)
[2025-10-04] MEDS: Lidocaine HCl Viscous 2 % 15 ML SOLUTION PO (10:57)
--- NOTE | 2025-10-04 11:05 | PC.NURSE ---
pt is alert and oriented, skin appropriate for ethnicity, respirations even and unlabored, bowel sounds in all 4 quadrants, abd soft but tender all over, pt is reporting upper mid and right lower abd pain n/v/d for weeks according to the pt mostly first thing in the morning, states vomits about 5 times a day and also reports having diarrhea. pt does report smoking marijuana daily
[2025-10-04 11:44] VITALS: BP 111/71; PULSE 83; RESP 18; O2SAT 98
[2025-10-04 12:53] VITALS: BP 111/71; PULSE 83; RESP 18; TEMP -17.7; TEMP 0; O2SAT 98
== END 2025-10-04 12:53 | disposition home or self-care (01) ==
PROVIDERS: Emergency Provider Emergency Medicine; PCP Internal Medicine
DX: K92.0 Hematemesis (principal); R10.13 Epigastric pain; R19.7 Diarrhea, unspecified
CPT/HCPCS: 36415; 74018; 80053; 83735; 85025; 96361; 96374; 96375; 99284; 99285; J1308; J2405

== ENCOUNTER → 2025-10-04 11:34 | Outpatient (BNV) | payer OTHER, SELFPAY | PROVIDERS: Emergency Provider Emergency Medicine; PCP Internal Medicine; Visit Provider Radiology Diagnostic Ultrasound | DX: R10.9 Unspecified abdominal pain (principal) | CPT/HCPCS: 74018 ==

== ENCOUNTER 2025-11-01 09:51 | Outpatient (REF) | payer OTHER, SELFPAY ==
--- OUTSIDE RECORDS SUMMARY | 2025-11-01 11:04 | XMS_ITS | Clinical Summary ---
Author Organization [facility] Address [address] [address] Phone Care Team Providers Care Programming Instructor Name Role Phone Merly Carrington MD Primary [...] Description 02/14/2026 3:00 PM EDT Office Visit [facility] Neuromuscular Service [address] [place] [address] Darrion Dowling MD 55 [facility] [address] [place] [address] [email or web address] Health Maintenance Due Date Last Done Comments [...] topic Medical Devices Not on file Insurance [facility] [id number] [facility] Care Teams Programming Instructor Relationship Specialty Start Date End Date Merly Carrington MD [address] [place] [address] [place] [address] PCP - General Internal Medicine 07/24/25 Additional Source Comments The information contained in this document represents components of the legal health record. It is not the complete legal health record.[facility]
[2025-11-01 13:34] LABS: MANUAL DIFF FLAG NO
[2025-11-01 13:42] LABS: Hematocrit 39.6 % (37.0-47.0); Hemoglobin 13.1 g/dl (12.0-16.0); Imm Gran Abs Auto 0.03 X10*3/uL (0.00-0.03); Imm Gran Pct Auto 0.4 % (0.0-0.4); Lymphocytes Absolute Auto 2.3 X10*3/uL (1.2-4.9); Mean Corpuscular HGB Conc 33.1 g/dl (31.0-35.0); Mean Corpuscular Hemoglobin 27.9 pg (27.0-33.0); Mean Corpuscular Volume 84.4 fL (80.0-98.0); NRBC Abs Auto 0.000 X10*3/uL (0.0-0.012); NRBC Pct Auto 0.0 /100WBC (0.0-0.2); Platelet Count 425 X10*3/uL (160-400); Red Blood Count 4.69 X10*6/uL (4.20-5.50); White Blood Count 8.5 X10*3/uL (4.8-10.8)
[2025-11-01 14:24] LABS: Alanine Aminotransferase 20 U/L (0-31); Albumin Level 4.3 g/dL (3.5-5.0); Alkaline Phosphatase 95 U/L (39-117); Aspartate Amino Transferase 19 U/L (5-31); Lipase 15 U/L (8-78); Total Protein 7.5 g/dL (6.5-8.0)
[2025-11-01 14:44] LABS: Thyroid Stimulating Hormone 0.69 uIU/mL (0.32-4.0)
== END 2025-11-01 09:52 | disposition home or self-care (01) ==
LOC: HO.10HDL 09:51
PROVIDERS: Visit Provider Internal Medicine Gastroenterology
DX: R11.10 Vomiting, unspecified (principal); R10.9 Unspecified abdominal pain; Z13.29 Encounter for screening for other suspected endocrine disorder
CPT/HCPCS: 36415; 80076; 83690; 84443; 85025

== ENCOUNTER 2025-11-07 08:40 | Day surgery (SDC) | payer OTHER, SELFPAY ==
--- OUTSIDE RECORDS SUMMARY | 2025-11-01 16:52 | XMS_ITS | Patient Health Record ---
Author Organization [facility] Address [address] [place] [address] Care Team Providers Care Religion Professor Name Role Phone Merly Carrington Primary Care Provider Unavailab Douglas Brar Jr Unavailable Cas Michel Unavailable [phone] Allergies No Known Allergies Results Component Value Reference Range Flag Notes Complete Blood Count Auto Di ff (Not yet reviewed by provider) Interpretation: Performing Lab:[facility], [address] [place] [phone] Notes/Report: White Blood Count 8.5 4.8-10.8 X10*3/uL N Red Blood Count 4.69 4.20-5.50 X10*6/uL N Hemoglobin 13.1 12.0-16.0 g/dl N Hematocrit 39.6 37.0-47.0 % N Mean Corpuscular Volume 84.4 80.0-98.0 fL N Mean Corpuscular Hemoglobin 27.9 27.0-33.0 pg N Mean Corpuscular HGB Conc 33.1 31.0-35.0 g/dl N Red Cell Distribution Width 13.9 11.0-16.0 % N Platelet Count 425 160-400 X10*3/uL H Mean Platelet Volume 9.6 9.4-12.3 fL N Neutrophils Percent Auto 61.9 45-73 % N Imm Gran Pct Auto 0.4 0.0-0.4 % N Lymphocytes Percent Auto 27.2 20-40 % N Monocytes Percent Auto 8.6 2-11 % N Eosinophils Percent Auto 1.2 0-4 % N Basophils Percent Auto 0.7 0-2 % N NRBC Pct Auto 0.0 0.0-0.2 /100WBC N Neutrophils Absolute Auto 5.3 2.0-8.3 x10*3/uL N Imm Gran Abs Auto 0.03 0.00-0.03 X10*3/uL N Lymphocytes Absolute Auto 2.3 1.2-4.9 X10*3/uL N Monocytes Absolute Auto 0.7 0.1-1.2 X10*3/uL N Eosinophils Absolute Auto 0.1 0.0-0.4 X10*3/uL N Basophils Absolute Auto 0.1 0.0-0.2 X10*3/uL N NRBC Abs Auto 0.000 0.0-0.012 X10*3/uL N Liver Panel (Not yet reviewe d by provider) Interpretation: Performing Lab:[address] [address] Notes/Report: Bilirubin Total 0.7 0.0-1.0 mg/dL N Bilirubin Direct 0.2 0.0-0.5 mg/dL N Aspartate Amino Transferase 19 5-31 U/L N Alanine Aminotransferase 20 0-31 U/L N Total Protein 7.5 6.5-8.0 g/dL N Albumin Level 4.3 3.5-5.0 g/dL N Alkaline Phosphatase 95 39-117 U/L N Lipase (Not yet reviewed by provider) Interpretation: Performing Lab:[address] [address] Notes/Report: Lipase 15 8-78 U/L N Thyroid Stimulating Hormone (Not yet reviewed by provider) Interpretation: Performing Lab:[address] [address] Notes/Report: Thyroid Stimulating Hormone 0.69 0.32-4.0 uIU/mL N TSH 3rd Generation ([facility]) Reason For Referral No Information Medications Medication SIG (Take, Route, Frequency, Duration) Notes Start Date End Date Status ARIPiprazole 10 MG Tablet TAKE 1 TABLET BY MOUTH AT BEDTIME Oral; Duration: 30 Active buPROPion HCl ER (XL) 150 MG Tablet Extended Release 24 Hour TAKE 1 TABLET BY MOUTH DAILY Oral; Duration: 30 Active Lyrica 75 MG Capsule 1 capsule Orally twice a day Active Wellbutrin XL 150 MG Tablet Extended Release 24 Hour 1 tablet in the morning Orally Once a day Active hydrOXYzine HCl 50 MG/ML Solution 1 mL as needed Intramuscular Three times a day Active Dulcolax (colon prep) 5 MG Tablet Delayed Release take at 3:00 p.m and 7:00p.m. Orally two tablets twice a day for one day; Duration: 1 day 05/10/2024 Not-Taking/PRN MiraLax (colon prep) 17 GM/SCOOP Powder 1 238Gm bottle mixed with Gatorade or Crystal Light Orally begin at 5:00 p.m. the day before the procedure; Duration: 1 day 05/10/2024 Not-Taking/PRN Gabapentin 800 MG Tablet TAKE 1 TABLET B Y MOUTH THREE TIMES DAILY Oral; Duration: 30 Not-Taking/PRN Cyclobenzaprine HCl 10 MG Tablet TAKE 1 TABLET BY MOUTH AT BEDTIME Oral; Duration: 30 Not-Taking/WI N busPIRone HCl 10 MG Tablet TAKE 1 TABLET BY MOUTH THREE TIMES DAILY Oral; Duration: 30 Active Social History Tobacco Use: Social History Observation Description Date Details (start date - stop date) Never Smoker NA - NA Social History Drug/Alcohol: Social Info Question Answer Notes AUDIT-C (Standard) Did you have a drink containing alcohol in the past year? No Points 0 Interpretation Negative Tobacco Use: Social Info Question Answer Notes Tobacco Use/Smoking Patient is a nonsmoker Additional Details Category Social Info Options Details Miscellaneous: Marital status: single Occupation: [employer] Section Notes: Nonsmoker; no alcohol Substance abuse--sober for 10 years Nonsmoker; no alcohol Substance abuse- sober for 10 years Problems Problem Type SNOMED Code ICD Code Onset Dates Problem Status W/U Status Risk Notes Problem Screening for malignant neoplasm of colon (378824405) Encounter for screening for malignant neoplasm of colon (Z12.11) Active confirmed Problem Pre-procedure evaluation check (792831512) Encounter for other preprocedural examination (Z01.818) Active confirmed Problem Family history of malignant neoplasm of gastrointestinal tract (728070355) Family history of colon cancer in mother (Z80.0) Active confirmed Vital Signs Heart Rate 60 /min 11/01/2025 Temperature 97.1 degrees Fahrenheit 11/01/2025 Blood pressure diastolic 001 mm Hg 11/01/2025 Height 5 ft 1 in in 11/01/2025 Blood pressure systolic 01 mm Hg 11/01/2025 Weight 235.6 lbs 11/01/2025 BMI 44.51 kg/m2 11/01/2025 Encounters Encounter Location Date Provider Diagnosis [facility] [address] [place] [phone] 11/01/2025 Douglas Hoffmann Jr [facility] [address] [place] [address] 10/31/2025 Douglas Hoffmann Jr [facility] [address] [place] [address] 11/01/2025 Douglas Hoffmann Jr [facility] [address] [place] [address] 01/04/2025 Cas Michel Plan Of Treatment Pending Test Test Name Order Date LIVER PROFILE 02/22/2026 LIPASE 02/22/2026 TSH (THYROID STIMULATING HORMONE) 2025 CBC w DIFF 02/22/2026 Complete Blood Count Auto Diff Liver Panel 11/01/2025 Lipase 11/01/2025 Thyroid Stimulating Hormone 11/01/2025 Future Test Test Name Order Date COLONOSCOPY 05/05/2024 UPPER GI ENDOSCOPY 11/01/2025 COLONOSCOPY 11/01/2025 Next Appt Details Provider Name:Douglas dash Jr, 11/07/2025 11:00:00 AM, [address] [place] [address] , [place], [phone], Provider Name:Douglas dash Jr, 02/22/2026 03:35:00 PM, [address], [address], [place], [address], Insurance Providers Payer Name Payer Address Payer Phone Subscriber Number Group Number Insured Name Patient Relationship to Insured Coverage Start Date Coverage End Date [facility] [address] [place] [phone] [id number] ROBY BARAJAS Self - patient is the insured Medical (General) History Medical History History ICD Code Denies [place],DM,CVA,Lung disease,renal dise ase 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
--- OUTSIDE RECORDS SUMMARY | 2025-11-01 16:52 | XMS_ITS | Clinical Summary ---
Author Organization [facility] ity Address [address] [place] [address] Care Team Providers Care Sports Nutritionist Name Role Phone Unavailable Primary Care Provider [...] Depression Screening 11/30/2024 COVID-19 Vaccine (1 - 2024-2 6 season) 2025 Influenza Vaccine (#1) 2025 08/19/2019 [...]
[2025-11-07 09:02] VITALS: BMI 43.7
[2025-11-07 09:17] VITALS: BP 133/85; PULSE 89; RESP 16; TEMP 36.5; O2SAT 98
--- NOTE | 2025-11-07 09:32 | MHC.SHP ---
Pre-Procedural Eval Section A - 24 Hr Update-Section A only Date of Service: 11/07/25 The patient is an INPATIENT: No Changes since office visit: No Cold of Flu in the past 2 weeks, No New Medical Problems, No Changes in Medication and No Patient answered all questions The patient has been examined within 24 hours of the surgical procedure. The History & Physical has been completed within 30 days and I have reviewed it.: Yes Section B - Complete if H&P > 30 days Chief Complaint: diarrhea,hematemesis,vomiting Allergies: Allergies Allergy/AdvReac Type Severity Reaction Status Date / Time apple Allergy Throat Verified 11/07/25 09:13 itches Plan I have reviewed the history and physical and performed a pertinent physical examination on my patient. No changes have occurred unless specified. Time Spent With Patient Time: Total time managing care of this patient today ____ minutes.
--- NOTE | 2025-11-07 10:05 | HO.ANESPROP2 ---
Documented by User: Pretty Ponce NP 11/03/25 13:56 HPI - Anesthesia Eval Consult details Narrative: 35 yr old female Upper Endoscopy and Colonoscopy Substance use disorder: on suboxone Marijuana use PMF Active Problems Active Problems: All Active Problems (Updated 10/06/25 @ 00:01 by Background Daemon) Knee instability (Acute) Alcohol abuse, in remission (Acute) Benzodiazepine dependence in remission (Acute) MDD (major depressive disorder), recurrent severe, without psychosis (Acute) Opioid dependence (Acute) Bursitis of left shoulder (Acute) Possible exposure to STD (Acute) Problematic vaginal discharge (Acute) Instability of right patellofemoral joint (Acute) Atypical endocervical cells on Pap smear (Acute) Left ankle sprain (Acute) Bacterial vaginosis (Acute) Atypical glandular cells of undetermined significance (MARY) on cervical Pap smear (Acute) PTSD (post-traumatic stress disorder) (Acute) Charcot Leanna Tooth muscular atrophy (Acute) MDD (major depressive disorder) (Acute) Past Medical History Medical History PTSD (post-traumatic stress disorder) Anxiety Depression Charcot Leanna Tooth muscular atrophy Family History Family History Mother Colon cancer Social History Social History Household Members: Children Household Members Other:: Pt's son,sister and brother in law Housing: Apartment Alcohol intake: never Patient Tobacco Use Status: Former Tobacco user Tobacco use type: Cigarette Second Hand Smoke Exposure: No Use of substances other than those prescribed or required for medical reasons: Yes Substance Use Type: Marijuana Substance Use Frequency: Daily Advance Directives: No Advance Directives Information Provided: Yes Patient : No (HCG negative) service: No Sexual orientation: Straight/Heterosexual Meds Allergies Allergy/AdvReac Type Severity Reaction Status Date / Time apple Allergy Throat Verified 11/07/25 09:13 itches Home Medications ?Medication ?Instructions ?Recorded ?Confirmed ?Last Taken ?Type buspirone 10 mg tablet 10 mg PO TID PRN anxiety 07/25/24 11/07/25 Unknown History bupropion HCl 150 mg 24 hr tablet, 150 mg PO DAILY 10/04/25 11/07/25 11/06/25 History extended release diazepam 5 mg tablet (Valium) 5 mg PO TID PRN muscle spasm 10/04/25 11/07/25 Unknown History hydroxyzine HCl 50 mg tablet 25 - 50 mg PO TID PRN anxiety 10/04/25 11/07/25 Unknown History pregabalin 75 mg capsule 75 mg PO BID 10/04/25 11/07/25 11/06/25 History Documented by User: Humaira Palacios DO 11/07/25 10:08 HPI - Anesthesia Eval Consult details Narrative: 35 yr old female Upper Endoscopy and Colonoscopy Substance use disorder Marijuana use PMFSH Past Medical History Medical History PTSD (post-traumatic stress disorder) Anxiety Depression Charcot Leanna Tooth muscular atrophy Family History Family History Mother Colon cancer Family history of problems with anesthesia: No Surgical History History of Problems with Anesthesia: No Social History Social History Household Members: Children Household Members Other:: Pt's son,sister and brother in law Housing: Apartment Alcohol intake: never Patient Tobacco Use Status: Former Tobacco user Tobacco use type: Cigarette Second Hand Smoke Exposure: No Use of substances other than those prescribed or required for medical reasons: Yes Substance Use Type: Marijuana Substance Use Frequency: Daily Advance Directives: No Advance Directives Information Provided: Yes Patient : No (HCG negative) service: No Sexual orientation: Straight/Heterosexual Meds Allergies Allergy/AdvReac Type Severity Reaction Status Date / Time apple Allergy Throat Verified 11/07/25 09:13 itches Home Medications ?Medication ?Instructions ?Recorded ?Confirmed ?Last Taken ?Type buspirone 10 mg tablet 10 mg PO TID PRN anxiety 07/25/24 11/07/25 Unknown History bupropion HCl 150 mg 24 hr tablet, 150 mg PO DAILY 10/04/25 11/07/25 11/06/25 History extended release diazepam 5 mg tablet (Valium) 5 mg PO TID PRN muscle spasm 10/04/25 11/07/25 Unknown History hydroxyzine HCl 50 mg tablet 25 - 50 mg PO TID PRN anxiety 10/04/25 11/07/25 Unknown History pregabalin 75 mg capsule 75 mg PO BID 10/04/25 11/07/25 11/06/25 History Exam Exam Date and Time: 11/07/25 [facility] Height,Weight and Vital Signs: Height 5 ft 1 in Weight 105 kg Vital Signs Temperature 97.7 F 11/07/25 09:17 Pulse Rate 89 11/07/25 09:17 Respiratory Rate 16 11/07/25 09:17 Blood Pressure 133/85 11/07/25 09:17 Pulse Oximetry 98 11/07/25 09:17 Oxygen Delivery Method Room Air 11/07/25 09:17 Temperature 97.7 F 11/07/25 09:17 Pulse Rate 89 11/07/25 09:17 Respiratory Rate 16 11/07/25 09:17 Blood Pressure 133/85 11/07/25 09:17 Pulse Oximetry 98 11/07/25 09:17 Oxygen Delivery Method Room Air 11/07/25 09:17 Airway Mallampati Class: II TM Dist: >3cm Neck ROM: Full Loose/Missing/Broken Teeth: No (patient denies any loose or broken teeth) Heart: S1S2 Lungs: CTAB Assessment and Plan Assessment Anesthesia Assessment: Anesthesia Plan Discussed and Chart Reviewed Final Anesthetic Review Family History of Problems with Anesthesia: No History of Problems with Anesthesia: No NPO: Yes ASA Class: III Final Preanesthetic Review: No Changes in Pt Med Stat, Meds/Allgs Chart Reviewed, Consent Obtained/Reviewed and Anes Risks/Benef Reviewed Patient Risk: Intermediate Procedure Risk: Low Anesthetic Plan Anesthetic Plan: MAC: and Agree w/ Assess. and Plan Disposition: Standard PACU
[2025-11-07 10:20] LABS: Cannabinoid Screen Urine POSITIVE (Not Detect)
[2025-11-07 10:21] LABS: UPreg QC Valid YES
[2025-11-07 10:55] VITALS: BP 109/64; PULSE 90; RESP 12; TEMP 36.1; O2SAT 97
[2025-11-07 11:10] VITALS: BP 106/86; PULSE 107; RESP 17; TEMP 36.1; O2SAT 99
--- NOTE | 2025-11-07 12:02 | OP_ITS ---
DATE OF SERVICE: 11/07/2025 SURGEON: Douglas Hoffmann MD INDICATIONS: Vomiting, hematemesis, and diarrhea as well as family history of colon cancer. PREOPERATIVE DIAGNOSIS: POSTOPERATIVE DIAGNOSIS: PROCEDURE PERFORMED: Upper endoscopy with biopsy, colonoscopy to the terminal ileum with biopsy. ESTIMATED BLOOD LOSS: COMPLICATIONS: ANESTHESIA: Monitored anesthesia care. ASSISTANTS: SPECIMENS: DESCRIPTION OF PROCEDURE: A history and physical was performed. The risks and benefits of the procedure were explained to the patient. Informed consent was obtained. The patient was placed in the left lateral decubitus position. A digital rectal exam was performed prior to the colonoscopy. The Olympus video gastroscope was introduced into the esophagus, stomach, and duodenum. Examination was performed. The scope was removed. She was repositioned for colonoscopy. The Olympus pediatric video colonoscope was introduced into the rectum and advanced to the cecum. The cecum was identified by transillumination, palpation, and identification of ileocecal valve. Examination was performed. The scope was removed. She tolerated both procedures well and was returned to the recovery area in stable condition. FINDINGS: Upper endoscopy: 1. Esophagus: The esophagus was normal. Biopsies were obtained from the EG junction. 2. Stomach: The stomach showed no evidence of masses or ulcers. Biopsies were obtained from the antrum. 3. Duodenum: The bulb and 2nd portion were normal. Biopsies were obtained from the 2nd portion. Colonoscopy: The terminal ileum was normal. This was biopsied. The visualized colonic mucosa was normal. The quality of the prep was good. There was no evidence of colitis. Biopsies were obtained from the sigmoid. At 35 cm from the anal verge was a less than 5 mm sessile polyp, which was removed with a biopsy forceps. No other polyps were identified. Retroflexed examination showed small internal hemorrhoids. IMPRESSION: 1. Normal upper endoscopy. 2. Colon polyp. RECOMMENDATION: Follow up the biopsy results. MD VANE Stauffer/JOSÉ / [id number]
== END 2025-11-07 11:44 | disposition home or self-care (01) ==
PROVIDERS: Nurse Practitioner; PCP Internal Medicine; Visit Provider Internal Medicine Gastroenterology
PROC: (CPT 45380; principal; 2025-11-07 11:00)
DX: R19.7 Diarrhea, unspecified (principal); Z80.0 Family history of malignant neoplasm of digestive organs; D12.5 Benign neoplasm of sigmoid colon; K64.8 Other hemorrhoids; R10.13 Epigastric pain; K92.0 Hematemesis; G60.0 Hereditary motor and sensory neuropathy; M79.7 Fibromyalgia; F32.A Depression, unspecified; F43.10 Post-traumatic stress disorder, unspecified; F19.11 Other psychoactive substance abuse, in remission; R82.5 Elevated urine levels of drugs, medicaments and biological substances; Z79.899 Other long term (current) drug therapy; Z98.890 Other specified postprocedural states
CPT/HCPCS: 45380; 43239; 80307; 81025; 88305; 88342; J2003; J2704

== ENCOUNTER 2025-11-28 01:40 | Emergency (ER) | payer OTHER, SELFPAY ==
--- OUTSIDE RECORDS SUMMARY | 2025-11-07 06:00 | XMS_ITS ---
Author Organization [facility] Address [address] [place] [address] [place] [address] Care Team Providers Care Coach Builder Name Role Phone Merly Carrington Primary Care Provider Unavailab Cas Bell Unavailable [phone] Douglas Hoffmann Jr Unavailable [phone] REASON FOR VISIT hematemesis, diarrhea, fam hx colon ca,vomiting Encounters Encounter Location Date Provider Diagnosis [facility] Outpatient [address] [place] [phone] 11/07/2025 Douglas Hoffmann Jr Plan Of Treatment Next Appt Details Provider Name:Douglas dash Jr, 02/22/2026 03:35:00 PM, [address] [place] [address], Suite [facility], [place], [address], Provider Name:Cas Michel , 04/03/2026 10:30:00 AM, [address] [place] [address], Suite [facility], [place], [address], Progress Notes * DIANA BARAJASILDOB: (35 yo F)Acc No.[id number]:11/07/2025 EGD and COL/MAC Patient: Anuel GALENYOSIROBY JOY Provider: Nalini Hoffmann MD :1990 A ge:35 Y S ex:Female Date:11/07/2025 Address:[address] [place] [address] [address], [place], [place] Pcp:Merly Carrington Subjective: * Chief Complaints: * H ematemesis, diarrhea, fam hx colon ca,vomiting Billing Information: * Procedure Codes: * The named appointment provid er may or may not be the originator of this progress note, and it is not deemed complete until electronically signed by the appointment provider. Sign off status: Pending * Provider: Nalini Hoffmann MD Date: 01/08/2025 Generated for Tate fajardo/Shayna/Arinsmitting on: 10:54 AM EST
--- OUTSIDE RECORDS SUMMARY | 2025-11-28 06:35 | XMS_ITS | Encounter Summary ---
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 they didn't listen to me given scripts for toradol and prednisone pt states when she gets to this point she usually gets and IV for fluids and pain medication but did not get this at [facility] [place] Encounter Details Date Type Department Care Team (Late st Contact Info) Description 11/28/2025 6:35 AM EST Emergency [facility] Emergency [address] [place] [address] Social History Tobacco Use Types Packs/Day Years Used Date Smoking Tobacco: Never Assessed Comments Unknown Sex and Gender Information Value Date Recorded Sex Assigned at Not on file Legal Sex Female 12:20 PM EDT Gender Identity Not on file Sexual Orientation Not on file documented as of this encounter Last Filed Vital Signs Vital Sign Reading Time Taken Comments Blood Pressure 135/57 11/28/2025 7:32 AM EST Pulse 80 11/28/2025 7:32 AM EST Temperature 36.8 C (98.2 F) 11/28/2025 7:32 AM EST Respiratory Rate 18 11/28/2025 7:32 AM EST Oxygen Saturation 99% 11/28/2025 7:32 AM EST Inhaled Oxygen Concentration - - Weight 107 kg (235 lb) 11/28/2025 6:40 AM EST Height 154.9 cm (5' 1 ) 11/28/2025 6:40 AM EST Body Mass Index 44.4 11/28/2025 6:40 AM EST documented in this encounter Functional Status * Calculated C-SSRS Risk Score (Lifetime/Recent) Answer Date of Assessment Author No Risk Indicated 11/28/2025 6:41 AM Justine Hyman RN * [place] Suicide Severity Rating Scale (Screener/Recent Self-Report) Question Answer Date of Assessment Author 1. Wish to be (Past 1 Month) No 11/28/2025 6:41 AM Gian Paredes RN 2. Non-Specific Active Suicidal Thoughts (Past 1 Month) No 11/28/2025 6:41 AM Gian Paredes RN 6. 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 they didn't listen to me given scripts for toradol and prednisone pt states when she gets to this point she usually gets and IV for fluids and pain medication but did not get this at [place] documented in this encounter Plan of Treatment Not on file documented as of this encounter Visit Diagnoses Not on filedocumented in this encounter Orders Medications Ordered That Peter ht Not Have Been Administered Count Last Ordered Date First Ordered Date methylPREDNISolone sodium funes cc (SOLU-Medrol) injection 125 mg 1 11/28/2025 sodium chloride 0.9 % bolus 1,000 mL 1 11/01 IV Count Last Ordered Date First Orde red Date INSERT PERIPHERAL IV 1 11/28/2025 documented in this encounter
[2025-11-28 09:47] LABS: Resp Syncy Virus RNA Qual PCR NEGATIVE (Negative); SARS COV2 PCR INHOUSE NEGATIVE (Negative)
[2025-11-28 10:15] LABS: UPreg QC Valid YES
--- OUTSIDE RECORDS SUMMARY | 2025-11-28 10:55 | XMS_ITS | Clinical Summary ---
Author Organization [facility] Address [address] [place] [address] Phone Care Team Providers Care Shipwright Apprentice Name Role Phone Unavailable Primary Care Provider Unavailabl e Allergies No known active allergies Encounters Date Type Department Care Team Description 11/28/2025 6:[address] [facility] Emergency [address] [place] [address] from Last 3 Months Social History Tobacco Use Types Packs/Day Years Used Date Smoking Tobacco: Never Assessed Comments Unknown Sex and Gender Information Value Date Recorded Sex Assigned at Not on file Legal Sex Female 12:20 PM EDT Gender Identity Not on file Sexual Orientation Not on file Last Filed Vital Signs Vital Sign Reading [...] Mass Index 44.4 11/28/2025 6:40 AM EST Plan of Treatment Health Maintenance Due Date Last Done Comments Drug Screen 1990 Naloxone Order 1990 Opioid Substance Agreement 1990 Pain Assessment 1990 Hepatitis A Vaccines (1 of 2 - Risk 2-dose series) 2009 Hepatitis B Vaccines (1 of 3 - 19+ 3-dose series) 2009 Cervical Cancer Screening: P ap Smear 2011 HPV Vaccines (1 - 3-dose SCD M series) 2017 Depression Screening 11/30/2024 COVID-19 Vaccine ( - 2024-2 6 season) 2025 Influenza Vaccine (#1) 2025 9, 09/18/2016 Cholesterol Screening (Lipid Panel) 11/28/2025 HIV Screening 11/28/2025 Hepatitis C Screening 11/28/2025 Social Influencers of Health Screening 11/28/2025 DTaP,Tdap,and Td Vaccines (2 - Td or Tdap) 09/18/2026 09/18/2016 RSV Immunization Adult Patients (1 - 1-dose 75+ series) 2065 HIB [...] age to complete this topic Pneumococcal Vaccine: Pediatrics (0 to 5 Years) and At-Risk Patients (6 to 49 Years) Aged Out No longer eligible b ased on patient's age to complete this topic RSV Immunization Patients Under 20 months Aged Out No longer eligible b ased on patient's age to complete this topic Varicella Vaccines Aged Out No longer eligible based on patient's age to complete this topic Insurance [employer]
--- OUTSIDE RECORDS SUMMARY | 2025-11-28 10:55 | XMS_ITS | Patient Health Record ---
Author Organization [facility] Address [address] [place] [address] Care Team Providers Care Outpatient Coding Specialist Name Role Phone Merly Carrington Primary Care Provider Unavailab Cas Bell Unavailable [phone] Douglas Hoffmann Jr Unavailable Allergies No Known Allergies Results Component Value Reference Range Flag Notes Complete Blood Count Auto Di ff Reviewed date:11/02/2025 10:45:09 AM Interpretation: Performing Lab:[facility], [address] [place] [phone] Notes/Report: White Blood Count 8.5 4.8-10.8 X10*3/uL [...] Auto 0.000 0.0-0.012 X10*3/uL N Liver Panel Reviewed date:11/02/2025 10:47:41 AM Interpretation: Performing Lab:[address] [phone] Notes/Report: Bilirubin Total 0.7 0.0-1.0 mg/dL N Bilirubin Direct 0.2 0.0-0.5 mg/dL N Aspartate Amino Transferase 19 5-31 U/L N Alanine Aminotransferase 20 0-31 U/L N Total Protein 7.5 6.5-8.0 g/dL N Albumin Level 4.3 3.5-5.0 g/dL N Alkaline Phosphatase 95 39-117 U/L N Lipase Reviewed date:11/02/2025 10:45:27 AM Interpretation: Performing Lab:[address] [phone] Notes/Report: Lipase 15 8-78 U/L N Thyroid Stimulating Hormone Reviewed date:11/02/2025 10:45:48 AM Interpretation: Performing Lab:[address] [phone] Notes/Report: Thyroid Stimulating Hormone 0.69 0.32-4.0 uIU/mL N TSH 3rd Generation ([facility]) Ur Preg Test Reviewed date:11/08/2025 08:37:38 AM Interpretation: Performing Lab:[address] [place] [address] Notes/Report: Urine NEGATIVE NEGATIVE This test was developed to detect early . False negative results may occur after the 5th - 7th week of when using this test method. If clinically indicated, consider a serum hCG. Pathology Reviewed date:11/13/2025 08:23:03 AM Interpretation: Performing Lab:[facility], [address] [place] [phone] Notes/Report: Drug Screen Urine Reviewed date:11/08/2025 08:37:26 AM Interpretation: Performing Lab:[facility], [address] [place] [phone] Notes/Report: Opiate Screen Urine Not Detected Not Detect Opiate cut-off is 300 ng/mL. Positive results are unconfirmed and should not be used for non-medical purposes. Barbiturates, Urine Not Detected Not Detect Barbiturate cut-off is 200 ng/mL. Positive results are unconfirmed and should not be used for non-medical purposes. Phencyclidine Screen Urine Not Detected Not Detect Phencyclidine cut-off is 25 ng/mL. Positive results are unconfirmed and should not be used for non-medical purposes. Amphetamine Screen Urine Not Detected Not Detect Amphetamine cut-off is 1000 ng/mL. Positive results are unconfirmed and should not be used for non-medical purposes. Benzodiazepines Screen Urine POSITIVE Not Detect A Benzodiazepine cut-off is 200 ng/mL. Positive results are unconfirmed and should not be used for non-medical purposes. Cocaine Screen Urine Not Detected Not Detect Cocaine cut-off is 300 ng/mL. Positive results are unconfirmed and should not be used for non-medical purposes. Cannabinoid Screen Urine POSITIVE Not Detect A Cannabinoid cut-off is 50 ng/mL. Positive results are unconfirmed and should not be used for non-medical purposes. Methadone Screen, Urine Not Detected Not Detect ng/mL Methadone cut-off is 300 ng/mL. Positive results are unconfirmed and should not be used for non-medical purposes. Fentanyl, urine Not Detected Not Detect Fentanyl cut-off is 1 ng/mL. Positive results are unconfirmed and should not be used for non-medical purposes. Oxycodone Screen Urine Not Detected Not Detect ng/mL Oxycodone cut-off is 100 ng/mL. Positive results are unconfirmed and should not be used for non-medical purposes. Buprenorphine Scr Not Detected Not Detect ng/mL Buprenorphine cut-off is 5 ng/mL. Positive results are unconfirmed and should not be used for non-medical purposes. Reason For Referral No Information Medications Medication SIG (Take, Route, Frequency, Duration) Notes Start Date End Date Status ARIPiprazole 10 MG Tablet TAKE 1 TABLET BY MOUTH AT BEDTIME Oral; Duration: 30 Active buPROPion HCl ER (XL) 150 MG Tablet Extended Release 24 Hour TAKE 1 TABLET BY MOUTH DAILY Oral; Duration: 30 Active Omeprazole 40 MG Capsule Delayed Release 1 capsule 1/2 to 1 hour before morning meal Orally Once a day; Duration: 30 days 11/13/2025 Active Lyrica 75 MG Capsule 1 capsule [...] BY MOUTH AT BEDTIME Oral; Duration: 30 Not-Taking/PA N busPIRone HCl 10 MG Tablet TAKE [...] Marital status: single 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 Notes: Nonsmoker; no alcohol Substance abuse--sober for 10 years Nonsmoker; no alcohol Substance abuse- sober for 10 years Problems Problem Type SNOMED Code ICD Code Onset Dates Problem Status W/U Status Risk Notes Problem Screening for malignant neoplasm of colon (910049238) Encounter for screening for malignant neoplasm of colon (Z12.11) Active confirmed Problem Diarrhea (39721188) Diarrhea (R19.7) Active con firmed Problem Pre-procedure evaluation check (630297890) Encounter for other preprocedural examination (Z01.818) Active confirmed Problem Nausea (734060658) Nausea (R11.0) Active confir med Problem Gastroesophageal reflux disease (588604384) GERD (gastroesophagea l reflux disease) (K21.9) Active confirmed Problem Vomiting (352235860) Vomiting (R11.10) Active confirmed Problem Family history of malignant neoplasm of gastrointestinal tract (506719775) Family history of colon cancer in mother (Z80.0) Active confirmed Vital Signs Heart Rate 60 /min 11/01/2025 Temperature 97.1 degrees Fahrenheit 11/01/2025 Blood pressure diastolic 001 mm Hg 11/01/2025 Height 5 ft 1 in in 11/01/2025 Blood pressure systolic 01 mm Hg 11/01/2025 Weight 235.6 lbs 11/01/2025 BMI 44.51 kg/m2 11/01/2025 Encounters Encounter Location Date Provider Diagnosis [facility] Outpatient [address] [place], [place] [id number] 11/07/2025 Douglas Hoffmann Jr [facility] [address] [place] [phone] 11/01/2025 Douglas Hoffmann Jr Nausea R11.0 ; Vomiting R11.10 and Diarrhea R19.7 [facility] [address] [place] [phone] 01/04/2025 Cas Michel [facility] [address] [place] [phone] 10/31/2025 Douglas Hoffmann Jr [facility] [address] [place] [phone] 11/01/2025 Douglas Hoffmann Jr [facility] [address] [place] [phone] 11/02/2025 Cas Michel [facility] [address] [place] [phone] 11/06/2025 Cas Michel [facility] [address] [place] [phone] 11/13/2025 Cas Michel GERD (gastroesophageal reflux disease) K21.9 Assessments Encounter Date Diagnosis (ICD Code) Assessment Notes Treatment Notes Treatment Clinical Notes Section Notes 11/01/2025 Nausea (ICD-10 - R11.0) She will have further evaluation of symptoms with EGD and colonoscopy. Risks and benefits were reviewed and accepted. 11/01/2025 Vomiting (ICD-10 - R11.10) She will have further evaluation of symptoms with EGD and colonoscopy. Risks and benefits were reviewed and accepted. 11/13/2025 GERD (gastroesophag eal reflux disease) (ICD-10 - K21.9) 11/01/2025 Diarrhea (ICD-10 - R19.7) She will have further evaluation of symptoms with EGD and colonoscopy. Risks and benefits were reviewed and accepted. Plan Of Treatment Pending Test Test Name Order Date LIVER PROFILE 02/22/2026 LIPASE 02/22/2026 TSH (THYROID STIMULATING HORMONE) 2025 CBC w DIFF 02/22/2026 Future Test Test Name Order Date COLONOSCOPY 05/05/2024 UPPER GI ENDOSCOPY 11/01/2025 COLONOSCOPY 11/01/2025 UPPER GI ENDOSCOPY 11/06/2025 COLONOSCOPY 11/06/2025 Next Appt Details Provider Name:Douglas dash Jr, 02/22/2026 03:35:00 PM, [address] [place] [address], [address], [place], [address], Provider Name:Cas Michel , 04/03/2026 10:30:00 AM, [address] [facility], [address], [place], [address], Insurance Providers Payer Name Payer Address Payer Phone Subscriber Number Group Number Insured Name Patient Relationship to Insured Coverage Start Date Coverage End Date [facility] [address] [place] [phone] [id number] ROBY BARAJAS Self - patient is the insured Medical (General) History Medical History History ICD Code Denies LA,DM,CVA,Lung disease,renal dise ase 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
--- OUTSIDE RECORDS SUMMARY | 2025-11-28 10:55 | XMS_ITS | Clinical Summary ---
Author Organization [facility] Address [address] [address] Phone Care Team Providers Care Income Tax Adjuster Name Role Phone Merly Carrington MD Primary [...] Description 02/14/2026 3:00 PM EDT Office Visit [facility] [address] [place] [address] Darrion Dowling MD [address] [facility] [address] [place] [address] [email or web address] Health Maintenance Due Date Last Done [...] topic Medical Devices Not on file Insurance [facility] [place] [id number] [facility] Care Teams Income Tax Adjuster Relationship Specialty Start Date End Date Merly Carrington MD [address] [place] [address] [place] [address] PCP - General Internal Medicine 07/24/25 Additional Source Comments The information contained in this document represents components of the legal health record. It is not the complete legal health record.[facility]
[2025-11-28 11:32] LABS: Cannabinoid Screen Urine POSITIVE (Not Detect)
== END 2025-11-28 09:10 | disposition home or self-care (01) ==
PROVIDERS: Emergency Provider Emergency Medicine; PCP Internal Medicine
DX: M79.7 Fibromyalgia (principal); Z03.818 Encounter for observation for suspected exposure to other biological agents ruled out; G60.0 Hereditary motor and sensory neuropathy; Z87.891 Personal history of nicotine dependence; R05.9 Cough, unspecified; F11.20 Opioid dependence, uncomplicated; F10.11 Alcohol abuse, in remission
CPT/HCPCS: 80307; 81025; 87637; 96372; 99284